=== PATIENT | male | born 1970 | race Caucasian/White ===

== ENCOUNTER 2022-09-02 07:27 | Outpatient (CLI) | payer MEDICARE, SELFPAY | END 2022-09-02 07:28 | disposition home or self-care (01) | LOC: AMB 09-13 06:51 | PROVIDERS: PCP Family Medicine; Visit Provider Family Medicine | DX: R06.02 Shortness of breath (principal); R05.9 Cough, unspecified | CPT/HCPCS: A0425; A0427 ==

== ENCOUNTER 2022-09-02 08:07 | Inpatient (IN) | payer MEDICARE, SELFPAY ==
[2022-09-02] VITALS (9 sets, daily range): BP systolic 114–157; BP diastolic 80–125; PULSE 74–138; RESP 20–28; TEMP 36.2–38.4; O2SAT 93–100; BMI 21.7; BMI 21.9
--- NOTE | 2022-09-02 08:27 | CRLHL7_ITS ---
For Patients: As a result of the Cures Act, medical imaging exams and procedure reports are released immediately into your electronic medical record. You may view this report before your referring provider. If you have questions, please contact your health care provider. INDICATION: COPD,FEVER TECHNIQUE: Chest 1 view COMPARISON: None FINDINGS: No dense infiltrate. No pulmonary edema or pneumothorax. No drainable pleural effusion. Mediastinum unremarkable. Postop changes right shoulder. IMPRESSION: No acute findings. Dictated by René Peña MD @ 09/02/2022 9:04:59 AM (Electronically Signed)
--- NOTE | 2022-09-02 08:29 | ED.SOB ---
HPI - SOB/Dyspnea General Chief Complaint: Shortness of Breath/Dyspnea Stated Complaint: Chest Pain Time Seen by Provider: 09/02/22 08:23 History of Present Illness HPI Narrative: This 52-year-old male comes in with shortness of breath. He arrives with a temperature of 101.2?. Those that he may have pneumonia. He has a history of COPD and is on oxygen at home. Oximetry at 97% but is on 3.5 L nasal cannula oxygen. He has tachycardia with a rate around 140 beats per minute. Is using accessory muscles for breathing. Began a couple days ago but significantly worse yesterday. He states that he did not sleep last night because of shortness of breath. He reports pain in his chest when coughing or taking a deep breath . He received 3 nebulizer treatments EN route here without much relief. Related Data Allergies Allergy/AdvReac Type Severity Reaction Status Date / Time No Known Drug Allergies Allergy Verified 09/02/22 08:18 Review of Systems Status of ROS: Reports: 10 or more systems reviewed and unremarkable except as noted in History and below Narrative: Constitutional: No weight gain or loss. he reports a fever. Eyes: No discharge. No vision changes. HENT: No congestion, no sore throat, no ear pain. Cardiovascular: No palpitations. Respiratory: Shortness of breath. Cough. Chest pain when coughing or taking a deep breath. Gastrointestinal: No abdominal pain, no vomiting, no diarrhea. Genitourinary: No dysuria, no hematuria. Musculoskeletal: Normal range of motion. Skin: No rashes, no pruritis. Neurological: No dizziness, weakness, sensory change, speech change. Endo/Heme/Allergies: No bruising or bleeding. No polydipsia. Pysch: no suicidality, no anxiety, no insomnia. All other systems reviewed and are negative. Exam Narrative: Exam Narrative: Constitutional: Well-developed, well-nourished. HEENT: Normocephalic, atraumatic. Neck: Normal range of motion. Nontender. Supple. Heart: Regular. No murmurs. Normal rate. Intact distal pulses. Lungs: Decreased air movement. S of accessory muscles for breathing. Abdomen: Normal bowel sounds. Nontender. No rebound tenderness. Genitalia: Deferred. Back: No midline tenderness. Normal range of motion. Extremities: Normal range of motion. No injury. Skin: Intact. No rash. Warm. No erythema or pallor. Neurologic: No altered sensation. No weakness. Alert and oriented. Psychiatric: No suicidality. No anxiety or depression. No insomnia. Nursing notes and vitals signs are reviewed. Const: Vital Signs, click to edit/add: Vital Signs - 24 hr 09/02/22 08:18 Temperature 101.2 F H Pulse Rate [Pulse Oximeter] 138 H Respiratory Rate 28 H Blood Pressure [Ri ght Upper Arm] 157/125 H Pulse Oximetry 97 Oxygen Delivery Me thod Nasal Cannula Oxygen Flow Rate 3.5 Course Vital Signs Vital signs: Initial Vital Signs Temperature 101.2 F H 09/02/22 08:18 Temperature Source Temporal Artery Scan 09/02/22 08:18 Pulse Rate 138 H 09/02/22 08:18 Respiratory Rate 28 H 09/02/22 08:18 Blood Pressure 157/125 H 09/02/22 08:18 Blood Pressure Mean 135 09/02/22 08:18 Pulse Oximetry 97 09/02/22 08:18 Oxygen Delivery Method 09/02/22 08:18 Oxygen Flow Rate 3.5 09/02/22 08:18 Vital Signs Temperature 101.2 F H 09/02/22 08:18 Pulse Rate 138 H 09/02/22 08:18 Respiratory Rate 28 H 09/02/22 08:18 Blood Pressure 157/125 H 09/02/22 08:18 Pulse Oximetry 97 09/02/22 08:18 Oxygen Delivery Method 09/02/22 08:18 Oxygen Flow Rate 3.5 09/02/22 08:18 Temperature 101.2 F H 09/02/22 08:18 Pulse Rate 138 H 09/02/22 08:18 Respiratory Rate 28 H 09/02/22 08:18 Blood Pressure 157/125 H 09/02/22 08:18 Pulse Oximetry 97 09/02/22 08:18 Oxygen Delivery Method 09/02/22 08:18 Oxygen Flow Rate 3.5 09/02/22 08:18 MDM - SOB/Dyspnea MDM Narrative Medical decision making narrative: This patient comes in with tachycardia and shortness of breath. He has a underlying history of COPD but took ill yesterday morning and arrives with a fever. Chest x-ray shows no acute pulmonary disease. Nasal pharyngeal swab returns positive for influenza A. Venous blood gases returned with some carbon dioxide retention but his pH is essentially normal. He is maintaining sufficient oximetry at 94% now on nasal cannula oxygen. He is a candidate for Tamiflu. I did speak with the hospitalist production repairer, Dr. Coello, who agrees to admit him into the hospital for further management. Lab Data Labs: Lab Results 09/02/22 09/02/22 09/02/22 Range/Units 08:45 09:12 09:12 WBC 9.64 (4.50-11.00) K/uL RBC 4.73 (4.30-5.90) m/uL Hgb 14.0 (13.5-17.5) gm/dL Hct 42.6 (37.0-53.0) % MCV 90 (80-100) fL MCH 30 (26-34) pg MCHC 33 (32-36) gm/dL RDW Coeff of Edin 11.9 (11.5-15.5) % Plt Count 246 (140-440) K/uL Neut % (Auto) 84.1 H (42.0-72.0) % Lymph % (Auto) 3.6 L (20-44) % [place] % (Auto) 10.2 (0.0-11.0) % Eos % (Auto) 1.3 (0.0-7.0) % Baso % (Auto) 0.3 (0.0-3.0) % Neut # (Auto) 8.10 H (1.7-7.0) K/uL Lymph # (Auto) 0.30 L (0.90-2.90) K/uL [place] # (Auto) 1.00 H (0.00-0.90) K/UL Eos # (Auto) 0.13 (0.00-0.50) K/uL Baso # (Auto) 0.03 (0.00-0.30) K/uL VBG pH (7.32-7.43) VBG pCO2 (40-50) mmHG VBG pO2 (25-47) mmHG VBG HCO3 (21-28) mmol/L Sodium 139 (135-149) mmol/L Potassium 4.3 (3.6-5.1) mmol/L Chloride 100 (96-114) mmol/L Carbon Dioxide 34 H (20-32) mmol/L BUN 16 (7-30) mg/dL Creatinine 0.7 (0.5-1.5) mg/dL Estimated Creat Clear 126.72 Estimated GFR 111 ml/min Glucose 124 H (60-115) mg/dL Lactate (0.5-1.9) mmol/L Calcium 9.2 (8.4-10.6) mg/dL SARS-CoV-2 (PCR) Negative SARS-CoV-2 (Negative) Influenza Type A (PCR) POSITIVE PCR FLU A A (Negative) Influenza Type B (PCR) Negative PCR FLU B (Negative) RSV (PCR) Negative PCR RSV (Negative) POC Troponin I (0.01-0.04) ng/ml 09/02/22 09/02/22 Range/Units 09:12 09:12 WBC (4.50-11.00) K/uL RBC (4.30-5.90) m/uL Hgb (13.5-17.5) gm/dL Hct (37.0-53.0) % MCV (80-100) fL MCH (26-34) pg MCHC (32-36) gm/dL RDW Coeff of Edin (11.5-15.5) % Plt Count (140-440) K/uL Neut % (Auto) (42.0-72.0) % Lymph % (Auto) (20-44) % [place] % (Auto) (0.0-11.0) % Eos % (Auto) (0.0-7.0) % Baso % (Auto) (0.0-3.0) % Neut # (Auto) (1.7-7.0) K/uL Lymph # (Auto) (0.90-2.90) K/uL [place] # (Auto) (0.00-0.90) K/UL Eos # (Auto) (0.00-0.50) K/uL Baso # (Auto) (0.00-0.30) K/uL VBG pH 7.389 (7.32-7.43) VBG pCO2 58 H (40-50) mmHG VBG pO2 31.0 (25-47) mmHG VBG HCO3 35 H (21-28) mmol/L Sodium (135-149) mmol/L Potassium (3.6-5.1) mmol/L Chloride (96-114) mmol/L Carbon Dioxide (20-32) mmol/L BUN (7-30) mg/dL Creatinine (0.5-1.5) mg/dL Estimated Creat Clear Estimated GFR ml/min Glucose (60-115) mg/dL Lactate 1.1 (0.5-1.9) mmol/L Calcium (8.4-10.6) mg/dL SARS-CoV-2 (PCR) (Negative) Influenza Type A (PCR) (Negative) Influenza Type B (PCR) (Negative) RSV (PCR) (Negative) POC Troponin I 0.00 L (0.01-0.04) ng/ml Imaging Data Chest x-ray: Radiologist's impression: FINDINGS: No dense infiltrate. No pulmonary edema or pneumothorax. No drainable pleural effusion. Mediastinum unremarkable. Postop changes right shoulder. IMPRESSION: No acute findings. ECG Data Attestation: I personally reviewed and interpreted this ECG as follows: Interpretation: Sinus tachycardia, rate is 139 beats per minute. There are no specific ST or T-wave abnormalities. Discharge Plan Discharge Clinical Impression: Influenza A Patient Disposition: Admitted As Inpatient Condition: Unchanged Follow Up/Referrals: Rohan Saldaña MD [Primary Care Provider] - Stand Alone Forms: [employer] Info Instructions
[2022-09-02] MEDS: dexAMETHasone 4 MG/ML VIAL 10 MG IV (09:01)
[2022-09-02 09:22] LABS: HCO3 VBG 35 mmol/L (21-28); Lactate* 1.1 mmol/L (0.5-1.9); PCO2 VBG 58 mmHG (40-50); pH VBG 7.389 (7.32-7.43)
[2022-09-02 09:25] LABS: Basophils Absolute Auto 0.03 K/uL (0.00-0.30); Basophils Percent Auto 0.3 % (0.0-3.0); Eosinophils Absolute Auto 0.13 K/uL (0.00-0.50); Eosinophils Percent Auto 1.3 % (0.0-7.0); Hematocrit 42.6 % (37.0-53.0); Immature Granulocytes Abs Auto 0.05 K/uL (0.00-0.30); Immature Granulocytes Pct Auto 0.5 %; Lymphocytes Percent Auto 3.6 % (20-44); Mean Corpuscular HGB Conc 33 gm/dL (32-36); Mean Corpuscular Hemoglobin 30 pg (26-34); Mean Corpuscular Volume 90 fL (80-100); Monocytes Percent Auto 10.2 % (0.0-11.0); Neutrophils Percent Auto 84.1 % (42.0-72.0); Platelet Count* 246 K/uL (140-440); RDW Coefficient of Variation % 11.9 % (11.5-15.5); Red Blood Count 4.73 m/uL (4.30-5.90); White Blood Count* 9.64 K/uL (4.50-11.00)
[2022-09-02 09:26] LABS: Slide Review Reflex No
[2022-09-02 09:26] LABS: PCR FLU A POSITIVE PCR FLU A (Negative); PCR FLU B Negative PCR FLU B (Negative); PCR RSV Negative PCR RSV (Negative)
[2022-09-02] MEDS: ACETAMINOPHEN 500 MG TABLET 1000 MG PO (09:34)
[2022-09-02 09:38] LABS: Chloride* 100 mmol/L (96-114); Potassium* 4.3 mmol/L (3.6-5.1); Sodium* 139 mmol/L (135-149)
[2022-09-02 09:41] LABS: Blood Urea Nitrogen* 16 mg/dL (7-30); Calcium* 9.2 mg/dL (8.4-10.6); Carbon Dioxide* 34 mmol/L (20-32); Creatinine* 0.7 mg/dL (0.5-1.5); Est. Creatinine Clearance* 126.72; Estimated Glomerular Filt Rate 111 ml/min; Glucose* 124 mg/dL (60-115)
[2022-09-02 09:42] LABS: SARS PCR* Negative SARS-CoV-2 (Negative)
[2022-09-02] MEDS: HYDROmorphone 0.5 mg/0.5 ml inj IVP (10:47)
[2022-09-02] MEDS: OSELTAMIVIR PHOSPHATE 75 MG CAPSULE PO ×2 (11:00→21:04)
--- NOTE | 2022-09-02 12:09 | ED.NURSE ---
Patient to CCU4 via wheelchair with NC @4L and IV saline locked.
--- NOTE | 2022-09-02 12:47 | CRLHL7_ITS ---
For Patients: As a result of the Century Cures Act, medical imaging exams and procedure reports are released immediately into your electronic medical record. You may view this report before your referring provider. If you have questions, please contact your health care provider. INDICATION: Hypoxia. COPD. Chest pain. Assess for pulmonary emboli. COMPARISON: March 13, 2020 TECHNIQUE: : CT examination of the chest was performed with the uneventful intravenous administration of 95 cc of Isovue 3 7 while thin axial sections were obtained from above the apices of the lungs to the lung bases. Please note that all CT scans at this facility use dose modulation, iterative reconstruction, and/or weight-based dosing when appropriate to reduce radiation dose to as low as reasonably achievable. FINDINGS: : HEART and MEDIASTINUM: The heart size is normal. There is no mediastinal or hilar adenopathy or mass. There is no pericardial effusion. PULMONARY ARTERIAL CIRCULATION: There is no visible intraluminal filling defect to suggest pulmonary embolus. LUNGS: Severe emphysema, upper lobe predominant centrilobular variant. Scarring and volume loss in the lingula. PLEURAL SPACES: There is no pleural effusion, pneumothorax or pleural based mass. VISUALIZED UPPER ABDOMEN: The limited visualized upper abdominal structures appear normal. OSSEOUS STRUCTURES: Age-appropriate appearance. No acute fracture or destructive process. TUBES and LINES: None. IMPRESSION: 1. There is no finding of acute pulmonary embolus. 2. Severe emphysema similar to the prior study. Minimal volume loss/atelectasis in the lingula which is new since the prior study. No pleural effusion or pneumothorax. Please note that all CT scans at this facility use dose modulation, iterative reconstruction, and/or weight-based dosing when appropriate to reduce radiation dose to as low as reasonably achievable. Dictated by Carl Castro MD @ 09/02/2022 2:29:41 PM (Electronically Signed)
--- NOTE | 2022-09-02 12:54 | P.IMHP_ITS ---
Hospitalist- H&P: HPI History of Present Illness Date Seen: 09/02/22 Chief complaint: Chest Pain Narrative: Carl Prasad is a 52 year old male who presented to the emergency room this morning for chest pain and dyspnea. Patient started feeling poorly 2 days ago and symptoms worsened; last night, he was unable to sleep secondary to severe dyspnea. In addition to his shortness of breath, he has had intermittent chest pain and coughing with thin sputum production. He has not had hemoptysis. He has not had any lower extremity edema. ER course and findings: - no acute findings on chest x-ray - + influenza A - normal pH on VBG, mild CO2 retention at 58 Patient has known history of COPD, is chronically oxygen dependent at home. No history of coronary artery disease. 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 He was previously on Coumadin but elected against lifelong anticoagulation. Carl lives alone, currently on SSDI secondary to severe COPD. He is a former smoker, quit last year and has smoked intermittently since. History of alcohol overuse, now rarely drinks alcohol. His mother Halima Watters would be medical decision maker if needed. He requests full code status, but requests that if he was ever intubated that it not be long-term. PCP is Dr. Saldaña locally. Review of Systems Status of ROS: Reports: 10 or more systems reviewed and unremarkable except as noted in History and below Narrative: - decreased appetite, but notes weight gain over the past few months (unclear on objective amount) - no abdominal pain - no skin concerns PFSH PFSH Medical History (Updated 09/02/22 @ 14:05 by Juanita Coello MD) COPD (chronic obstructive pulmonary disease) Former smoker Oxygen dependent Recurrent deep vein thrombosis (DVT) Surgical History (Updated 09/02/22 @ 13:04 by Juanita Coello MD) H/O lumbar discectomy Social History Highest level of school completed/degree received: 12th grade, no diploma Smoking Status: Former smoker What tobacco products do you use: cigarettes Smoking quit date/years: <= 15 years ago Do you use any of these nicotine containing products: None How often do you have a drink containing alcohol: never AUDIT-C Alcohol total score: 0 Caffeine: Yes service: No Meds Home Medications and Allergies Home Medications Medication Instructions Recorded Confirmed Type albuterol sulfate 90 mcg/actuation 2 inh inhalation Q4-6H PRN 09/02/22 09/02/22 History aerosol inhaler fluticasone fur. 100 mcg-umeclid 1 inh inhalation DAILY 09/02/22 09/02/22 History 62.5 mcg-vilant 25 mcg inhalat.powder (Trelegy Ellipta) Allergies Allergy/AdvReac Type Severity Reaction Status Date / Time No Known Drug Allergies Allergy Verified 09/02/22 08:18 Exam Narrative: Exam Narrative: GEN: Alert in answering questions appropriately, appears chronically ill and thin HEENT: Normal external ears, EOMIs bilaterally, no scleral icterus CV: Sinus tachycardia, No concerning murmurs, rubs, or gallops R: + tachypnea with accessory muscle usage. Decreased air movement throughout, soft expiratory wheezes Ab: Soft, no distension, mild hepatomegaly to palpation, no TTP Ext: wwp, no concerning edema Skin: No concerning skin lesions or rashes on exposed skin Neuro: Nonfocal, no resting tremor gait Psych: Appropriate Const: Vital Signs, click to edit/add: Vital Signs - 24 hr 09/02/22 08:18 09/02/22 08:27 09/02/22 10:45 Temperature 101.2 F H 99 F Pulse Rate [Pulse Oximeter] 138 H 111 H Pulse Rate [Right Radial] Respiratory Rate 28 H 24 Blood Pressure [Ri ght Arm] Blood Pressure [Ri ght Upper Arm] 157/125 H 118/90 H Pulse Oximetry 97 95 95 Oxygen Delivery Me thod Nasal Cannula Nasal Cannula Oxygen Flow Rate 3.5 3.5 09/02/22 12:19 Temperature 99.1 F Pulse Rate [Pulse Oximeter] Pulse Rate [Right Radial] 112 H Respiratory Rate 20 Blood Pressure [Ri ght Arm] 114/91 H Blood Pressure [Ri ght Upper Arm] Pulse Oximetry 97 Oxygen Delivery Me thod Nasal Cannula Oxygen Flow Rate 3.5 Hospitalist - H&P: Result Labs Labs: Short CBC 09/02/22 Range/Units 09:12 WBC 9.64 (4.50-11.00) K/uL Hgb 14.0 (13.5-17.5) gm/dL Hct 42.6 (37.0-53.0) % Plt Count 246 (140-440) K/uL [facility] 09/02/22 09:12 Sodium 139 Potassium 4.3 Chloride 100 Carbon Dioxide 34 H BUN 16 Creatinine 0.7 Glucose 124 H Calcium 9.2 Assessment and Plan Assessment and plan (1) Acute and chronic respiratory failure with hypoxia: Problem comment: - 2/2 COPD exacerbation and Influenza - RT referral - Tamiflu, nebs, steroids - CT PE ordered, results pending Status: Acute (2) COPD (chronic obstructive pulmonary disease): Problem comment: - exacerbation with influenza A - 24 hours IV Solu-Medrol, transition to oral prednisone tomorrow - RT referral - prn nebs Status: Acute (3) Recurrent deep vein thrombosis (DVT): Problem comment: - history of DVT x2 and PE - will obtain CTA of chest to evaluate given symptoms Status: Acute (4) Influenza A: Problem comment: - Given high risk status, treat with Tamiflu Status: Acute Plan - per above - ppx pending results of CT - patient requests Full Code status
[2022-09-02] MEDS: METHYLPREDNISOLONE SOD SUCC 62.5 MG/ML (125) 125 MG IVP ×2 (13:52→19:21)
--- NOTE | 2022-09-02 14:06 | PC.NURSE ---
End of Shift Note: Patient arrived from the ER due to increase work of breathing. Has been ill for a couple of days. Was seen by RT and oxygen has been turned down as he is a CO2 retainer. Just received a dose of solumederol. Is sitting up in bed. Inspiratory is course sounding. Will continue to monitor.
[2022-09-02 14:17] LABS: Thyroid Stimulating Hormone* 0.677 uIU/mL (0.270-4.20)
--- NOTE | 2022-09-02 14:18 | RESP.RT ---
Patient has been prescribed supplemental O2 at home at 2Lpm NC, but increased those settings on his own to 3.5L NC. He was on 3.5L NC and SATing 100%. I weaned him down to his prescribed level of 2L NC, and he is still SATing 98%. He continues to have labored breathing and says that he is taking Trelogy Qday at home and Albuterol PRN. After seeing his VBG having an elevated CO2 level we should assess his need for the 2L NC and attempt to wean him down to a level where he is not retaining CO2 and keeping his SATs 88-92%.
[2022-09-02 15:03] LABS: Albumin* 4.5 g/dL (3.3-5.0)
[2022-09-02 15:06] LABS: Alanine Aminotransferase* 20 U/L (4-50); Alkaline Phosphatase* 84 U/L (40-150); Aspartate Amino Transferase* 26 U/L (12-35); Bilirubin Direct* 0.2 mg/dL (0.0-0.5); Bilirubin Total* 0.5 mg/dL (0.1-1.5); Total Protein* 7.3 g/dL (6.0-8.3)
[2022-09-02 15:17] LABS: NT Pro B Type NatriureticPept* 274 pg/mL
[2022-09-02] MEDS: IPRAT-ALBUT 0.5-2.5 MG/3 ML NEB 1 NEB IH (16:05)
[2022-09-02] MEDS: MORPHINE 4 MG/ML INJ IVP (16:05)
[2022-09-02] MEDS: PERFLUTREN LIPID MICROSPHERES 2 ML VIAL IV (17:39)
--- NOTE | 2022-09-02 17:47 | PC.NURSE ---
[facility] note: pt states he has 4/10 upper chest pain with cough. pt cough dry and intermittent. Pt received duoneb and 2mg morphine sulfate with relief. vss stable. pt on 1.5L pnc O2 with sats variable 91-93%. RR=26/min and shallow prior to neb. LS course throughout. IV to lt AC patent. echo done
[2022-09-02] MEDS: ALBUTEROL SULFATE 2.5 MG/3 ML VIAL.NEB NEB (19:38)
[2022-09-02] MEDS: LORazepam 0.5 MG TABLET PO (21:04)
[2022-09-02] MEDS: BUDESONIDE 0.5 MG/2ML NEB NEB (21:05)
[2022-09-02] MEDS: ENOXAPARIN 40 MG/0.4 ML INJ SUBCUT (21:05)
[2022-09-03] VITALS (7 sets, daily range): BP systolic 110–135; BP diastolic 76–103; PULSE 73–115; RESP 18–20; TEMP 36.2–36.8; O2SAT 89–97
[2022-09-03] MEDS: METHYLPREDNISOLONE SOD SUCC 62.5 MG/ML (125) 125 MG IVP (00:59)
[2022-09-03] MEDS: ACETAMINOPHEN 325 MG TABLET 975 MG PO (01:07)
[2022-09-03] MEDS: MORPHINE 4 MG/ML INJ IVP ×4 (01:07→15:32)
[2022-09-03] MEDS: SODIUM CHLORIDE 0.9 % (FLUSH) 10 ML SYRINGE 5 ML IVF ×4 (01:11→21:06)
[2022-09-03] MEDS: OMEPRAZOLE 20 MG CAPSULE DR 40 MG PO (06:06)
[2022-09-03 06:34] LABS: HCO3 VBG 36 mmol/L (21-28); PO2 VBG 27.4 mmHG (25-47); pH VBG 7.331 (7.32-7.43)
[2022-09-03 06:42] LABS: PCO2 VBG 69 mmHG (40-50)
[2022-09-03 06:43] LABS: Basophils Absolute Auto 0.02 K/uL (0.00-0.30); Basophils Percent Auto 0.3 % (0.0-3.0); Hematocrit 39.3 % (37.0-53.0); Hemoglobin* 12.9 gm/dL (13.5-17.5); Immature Granulocytes Pct Auto 1.3 %; Lymphocytes Percent Auto 9.4 % (20-44); Mean Corpuscular HGB Conc 33 gm/dL (32-36); Mean Corpuscular Hemoglobin 29 pg (26-34); Mean Corpuscular Volume 89 fL (80-100); Monocytes Percent Auto 4.9 % (0.0-11.0); Neutrophils Percent Auto 84.1 % (42.0-72.0); Platelet Count* 266 K/uL (140-440); RDW Coefficient of Variation % 11.9 % (11.5-15.5); Red Blood Count 4.41 m/uL (4.30-5.90); White Blood Count* 7.56 K/uL (4.50-11.00)
[2022-09-03 06:52] LABS: Albumin* 4.1 g/dL (3.3-5.0); Chloride* 97 mmol/L (96-114)
[2022-09-03 06:53] LABS: Potassium* 4.5 mmol/L (3.6-5.1); Sodium* 137 mmol/L (135-149)
[2022-09-03 06:55] LABS: Alkaline Phosphatase* 68 U/L (40-150); Aspartate Amino Transferase* 21 U/L (12-35); Bilirubin Total* 0.5 mg/dL (0.1-1.5); Blood Urea Nitrogen* 21 mg/dL (7-30); Carbon Dioxide* 34 mmol/L (20-32); Creatinine* 0.8 mg/dL (0.5-1.5); Est. Creatinine Clearance* 112.06; Estimated Glomerular Filt Rate 106 ml/min; Slide Review Reflex No; Total Protein* 6.8 g/dL (6.0-8.3)
[2022-09-03 06:56] LABS: Alanine Aminotransferase* 19 U/L (4-50); Calcium* 8.8 mg/dL (8.4-10.6); Glucose* 136 mg/dL (60-115)
[2022-09-03 07:10] LABS: Troponin I* < 0.01 ng/mL (0.01-0.04)
[2022-09-03 07:13] LABS: Procalcitonin* 0.08 ng/mL (<0.50)
[2022-09-03] MEDS: predniSONE 20 MG TABLET 60 MG PO (08:04)
[2022-09-03] MEDS: OSELTAMIVIR PHOSPHATE 75 MG CAPSULE PO ×2 (09:04→21:05)
[2022-09-03] MEDS: BUDESONIDE 0.5 MG/2ML NEB NEB ×2 (09:05→21:06)
[2022-09-03 09:48] LABS: HCO3 VBG 35 mmol/L (21-28); PO2 VBG 20.9 mmHG (25-47); pH VBG 7.336 (7.32-7.43)
[2022-09-03 09:50] LABS: PCO2 VBG 66 mmHG (40-50)
--- NOTE | 2022-09-03 15:22 | P.IMPN_ITS ---
Progress Note: A&P Assessment and plan (1) Acute and chronic respiratory failure with hypoxia: Problem details: - 2/2 COPD exacerbation and Influenza - RT referral - Tamiflu, nebs, steroids - CT PE protocol negative for pulmonary embolism, no acute infiltrate, no pneumothorax, advance emphysema and COPD. Status: Acute (2) COPD (chronic obstructive pulmonary disease): Problem details: - exacerbation with influenza A - 24 hours IV Solu-Medrol, transition to oral prednisone tomorrow - RT referral - prn nebs Status: Acute (3) Recurrent deep vein thrombosis (DVT): Problem details: - history of DVT x2 and PE - will obtain CTA of chest to evaluate given symptoms Status: Acute (4) Influenza A: Problem details: - Given high risk status, treat with Tamiflu Status: Acute (5) Acute on chronic respiratory failure with hypoxia and hypercapnia: Status: Acute (6) Oxygen dependent: Status: Acute Plan 1. Discussed with patient the possibility of adding BiPAP therapy. He is agreeable to do so should his condition worsen. Will continue to monitor this closely. 2. Continue with lower oxygen supplementation. 3. Continue with treatment for COPD exacerbation and influenza. 4. Patient agreeable with above stated plans and recommendations. Time Spent With Patient Total time spent: 40 minutes Subjective Time Seen by Provider: 08:30 Date Seen: 09/03/22 Interval history: Hospital day 2. 52-year-old man with advanced emphysema and COPD with history of tobacco smoking presents with aches and pains and increased dyspnea. Found to have influenza A. Is chronically on oxygen supplementation at 2 liters/minute via nasal cannula. Not feeling any better today compared to when he presented yesterday. Has similar complaints of myalgias, arthralgias, dyspnea at rest with increased dyspnea with exertion. Tolerating oseltamivir treatment for influenza A. We have been titrating his oxygen administration downward. When I 1st saw him today he was on 1 L of oxygen per minute with respiratory rate of 24 saturation of 94%. Tolerating oral intake. Denies nausea or vomiting. Acknowledges decreased interest in eating. Has some chest discomforts when coughing otherwise none. Acknowledges a generalized sense of weakness. No other gastrointestinal or genitourinary complaints or concerns. Denies chest heaviness, pressure, tightness, or pain. Denies syncope or near-syncope. Denies palpitations. Exam Narrative: Exam Narrative: Appears ill, but in no acute distress. Vision and hearing are grossly normal. Thin body habitus. Scattered rhonchi without wheezing or rales. Decreased breath sounds. Distant heart tones but regular rhythm, normal S1-S2. Abdomen with active bowel sounds, soft, nontender. Extremities without edema. Does have clubbing of digits of the hand. Independent transfer, station, and gait. No tremor, asterixis, or ataxia. Skin intact. Const: Vital Signs, click to edit/add: Vital Signs - 24 hr 09/02/22 16:10 09/02/22 19:00 09/02/22 19:00 Temperature 97.2 F L 97.4 F L Pulse Rate Pulse Rate [Right Radial] 94 74 Respiratory Rate 26 H 22 22 Blood Pressure [Ri ght Arm] 123/80 117/88 Pulse Oximetry 100 100 Oxygen Delivery Me thod Nasal Cannula Nasal Cannula Oxygen Flow Rate 2 1 09/02/22 22:49 09/02/22 22:49 09/02/22 22:49 Temperature Pulse Rate 95 Pulse Rate [Right Radial] Respiratory Rate 24 22 Blood Pressure [Ri ght Arm] Pulse Oximetry 93 Oxygen Delivery Me thod Nasal Cannula Oxygen Flow Rate 1 09/02/22 22:53 09/02/22 22:53 09/03/22 02:32 Temperature 97.4 F L Pulse Rate Pulse Rate [Right Radial] 90 Respiratory Rate 22 20 Blood Pressure [Ri ght Arm] 135/103 H Pulse Oximetry 93 93 97 Oxygen Delivery Me thod Nasal Cannula Nasal Cannula Oxygen Flow Rate 1 1 09/03/22 07:00 09/03/22 07:00 09/03/22 07:00 Temperature Pulse Rate 73 Pulse Rate [Right Radial] 115 H Respiratory Rate 20 Blood Pressure [Ri ght Arm] Pulse Oximetry 90 Oxygen Delivery Me thod Oxygen Flow Rate 09/03/22 07:00 09/03/22 07:00 09/03/22 11:00 Temperature 97.2 F L 97.6 F Pulse Rate Pulse Rate [Right Radial] 115 H 89 Respiratory Rate 20 20 18 Blood Pressure [Ri ght Arm] 110/76 129/87 Pulse Oximetry 90 90 91 Oxygen Delivery Me thod Nasal Cannula Nasal Cannula Nasal Cannula Oxygen Flow Rate 1 1 0.5 Labs Labs: Laboratory Results - last 24 hr 09/03/22 09/03/22 09/03/22 06:07 06:07 06:07 WBC 7.56 RBC 4.41 Hgb 12.9 L Hct 39.3 MCV 89 MCH 29 MCHC 33 RDW Coeff of Edin 11.9 Plt Count 266 Neut % (Auto) 84.1 H Lymph % (Auto) 9.4 L [place] % (Auto) 4.9 Eos % (Auto) 0.0 Baso % (Auto) 0.3 Neut # (Auto) 6.40 Lymph # (Auto) 0.70 L [place] # (Auto) 0.40 Eos # (Auto) 0.00 Baso # (Auto) 0.02 VBG pH 7.331 VBG pCO2 69 H* VBG pO2 27.4 VBG HCO3 36 H Sodium 137 Potassium 4.5 Chloride 97 Carbon Dioxide 34 H BUN 21 Creatinine 0.8 Estimated Creat Clear 112.06 Estimated GFR 106 Glucose 136 H Calcium 8.8 Total Bilirubin 0.5 AST 21 ALT 19 Alkaline Phosphatase 68 Troponin I < 0.01 L Total Protein 6.8 Albumin 4.1 Procalcitonin 0.08 09/03/22 09:26 WBC RBC Hgb Hct MCV MCH MCHC RDW Coeff of Edin Plt Count Neut % (Auto) Lymph % (Auto) [place] % (Auto) Eos % (Auto) Baso % (Auto) Neut # (Auto) Lymph # (Auto) [place] # (Auto) Eos # (Auto) Baso # (Auto) VBG pH 7.336 VBG pCO2 66 H* VBG pO2 20.9 L VBG HCO3 35 H Sodium Potassium Chloride Carbon Dioxide BUN Creatinine Estimated Creat Clear Estimated GFR Glucose Calcium Total Bilirubin AST ALT Alkaline Phosphatase Troponin I Total Protein Albumin Procalcitonin
[2022-09-03 16:30] LABS: HCO3 VBG 34 mmol/L (21-28); pH VBG 7.291 (7.32-7.43)
[2022-09-03 16:35] LABS: PCO2 VBG 71 mmHG (40-50)
--- NOTE | 2022-09-03 19:05 | PM.EN ---
Chart Event Note Time Seen by Provider: 19:05 Date Seen: 09/03/22 Chart Event Note: NOTED INCREASING CO2 NOTED DECREASING PH Romulo is feeling more dyspneic and had trouble recovering after walking to the bathroom on his 0.5 L. just after his trip to the restroom we checked a VBG which had stated findings. Discussed the case with his bedside nurse and RT, we are initiating BiPAP therapy at 12 at 25% FiO2 I am going to hold his morphine but allow small dose of IV Ativan as he is mildly restless with the mask on Repeat gas at 10:00 p.m.
[2022-09-03] MEDS: LORazepam 2 MG/ML inj IVP (21:04)
[2022-09-03] MEDS: ENOXAPARIN 40 MG/0.4 ML INJ SUBCUT (21:07)
[2022-09-03 22:09] LABS: HCO3 VBG 36 mmol/L (21-28); Lactate* 1.3 mmol/L (0.5-1.9); PCO2 VBG 58 mmHG (40-50); PO2 VBG 32.4 mmHG (25-47); pH VBG 7.401 (7.32-7.43)
--- NOTE | 2022-09-03 22:56 | PC.NURSE ---
Dr Tao updated on current VBG values. To cont as is until morning. Pt can have 3 15min breaks from BiPaP throughout the night if he choses. He is resting at this time. Labs in am.
[2022-09-04] VITALS (10 sets, daily range): BP systolic 104–135; BP diastolic 81–93; PULSE 73–97; RESP 18–28; TEMP 36.2–37.2; O2SAT 90–99
--- NOTE | 2022-09-04 05:45 | PC.NURSE ---
Pt tired looking and pale. Was started on BiPAP at aroung 1900 last evening. He initially was not tolerating it very well. Dr Tao spoke with him and labs were drawn and were better by having BiPAP on so pt left it on and was given .5 mg of ativan. He tolerated that well. He slept 5-5.5hrs. Up x1 to the BR around 3pm then back to sleep.
[2022-09-04] MEDS: OMEPRAZOLE 20 MG CAPSULE DR 40 MG PO (06:45)
[2022-09-04 07:12] LABS: HCO3 VBG 37 mmol/L (21-28); PCO2 VBG 59 mmHG (40-50); PO2 VBG 29.8 mmHG (25-47); pH VBG 7.405 (7.32-7.43)
[2022-09-04 07:20] LABS: Hematocrit 41.6 % (37.0-53.0); Hemoglobin* 13.6 gm/dL (13.5-17.5); Mean Corpuscular HGB Conc 33 gm/dL (32-36); Mean Corpuscular Hemoglobin 29 pg (26-34); Mean Corpuscular Volume 89 fL (80-100); Platelet Count* 301 K/uL (140-440); Red Blood Count 4.69 m/uL (4.30-5.90)
[2022-09-04 07:47] LABS: Slide Review Reflex No; White Blood Count* 25.61 K/uL (4.50-11.00)
[2022-09-04] MEDS: predniSONE 20 MG TABLET 60 MG PO (08:16)
[2022-09-04] MEDS: IPRAT-ALBUT 0.5-2.5 MG/3 ML NEB 1 NEB IH ×2 (08:16→15:00)
[2022-09-04] MEDS: LORazepam 2 MG/ML inj IVP (08:25)
[2022-09-04] MEDS: BUDESONIDE 0.5 MG/2ML NEB NEB ×2 (10:16→20:23)
[2022-09-04] MEDS: OSELTAMIVIR PHOSPHATE 75 MG CAPSULE PO ×2 (10:16→20:41)
[2022-09-04] MEDS: LORazepam 0.5 MG TABLET PO ×2 (11:53→20:24)
--- NOTE | 2022-09-04 16:13 | P.IMPN_ITS ---
Progress Note: A&P Assessment and plan (1) Acute and chronic respiratory failure with hypoxia: Problem details: - 2/2 COPD exacerbation and Influenza - RT referral - Tamiflu, nebs, steroids - CT PE protocol negative for pulmonary embolism, no acute infiltrate, no pneumothorax, advance emphysema and COPD. Status: Acute Assessment and Plan: Not requiring much oxygen supplementation. For the hypercapnic respiratory failure however he is requiring BiPAP support off and on. (2) COPD (chronic obstructive pulmonary disease): Problem details: - exacerbation with influenza A - 24 hours IV Solu-Medrol, transition to oral prednisone tomorrow - RT referral - prn nebs Status: Acute Assessment and Plan: Continue current treatment efforts. (3) Recurrent deep vein thrombosis (DVT): Problem details: - history of DVT x2 and PE - will obtain CTA of chest to evaluate given symptoms Status: Acute (4) Influenza A: Problem details: - Given high risk status, treat with Tamiflu Status: Acute Assessment and Plan: Continue with use of oseltamivir. (5) Acute on chronic respiratory failure with hypoxia and hypercapnia: Status: Acute Assessment and Plan: Continue with BiPAP support. (6) Oxygen dependent: Status: Acute Assessment and Plan: Acute on chronic. Not requiring mice oxygen support except for with exertion at this time. Plan Continue with efforts to support patient during this delicate time. In time we will see how he does with less support. Time Spent With Patient Total time spent: 45 minutes Subjective Time Seen by Provider: 07:30 Date Seen: 09/04/22 Interval history: Hospital day 3. 52-year-old man with advanced emphysema and COPD with history of tobacco smoking presents with aches and pains and increased dyspnea. Found to have influenza A. Is chronically on oxygen supplementation at 2 liters/minute via nasal cannula. Yesterday he went on to develop acute on chronic hypercapnic respiratory failure with rising venous pCO2 to 71 and falling venous pH to 7.2. We initiated treatment with BiPAP therapy. He was fairly comfortable with the setting of E PAP of 5, IPAP of 12, with FiO2 of 25%. This morning pH was up to 7.4 and pCO2 was down to 58. He indicates he feels slightly better today compared to yesterday but still feels ?awful.? Shortness of breath is not as bad. Only has chest discomfort with coughing. No chest heaviness, pressure, tightness, or pain. Denies syncope or near-syncope. Denies nausea vomiting. Minimal exertion causes major decrease in his oxygen saturation levels. Tolerating oral intake. Patient has been switching from BiPAP to oxygen delivery via nasal cannula today. With minimal exertion he is able to maintain his saturations above 90 even on 0.5 L of oxygen per minute nasal cannula. With minimal exertion, oxygen saturations drop into the low 80s. Saturations recover with rest. Exam Narrative: Exam Narrative: Still relatively tachypneic at rest even with oxygen delivered via nasal cannula and 0.5 liter/minute. Nevertheless does not appear uncomfortable. When I 1st saw him this morning, he was using the face mask as he was receiving BiPAP. As I have seen him off and on throughout the day, he has had the nasal cannula in place at 0.5 liter/minute. On auscultation of his lungs he has inspiratory and expiratory wheezing. Is receiving nebulizer therapy and steroids. Heart tones are distant but with regular rhythm. Abdomen thin with active bowel sounds, soft and nontender. Extremities without edema. Skin is warm, dry, intact. Const: Vital Signs, click to edit/add: Vital Signs - 24 hr 09/03/22 18:44 09/03/22 19:09 09/04/22 09:29 Temperature 98.2 F Pulse Rate Pulse Rate [Right Radial] 85 Respiratory Rate 20 Blood Pressure [Ri t Arm] 134/87 Pulse Oximetry 90 Oxygen Delivery Me thod Nasal Cannula Oxygen Flow Rate 0.5 Fraction of Inspir ed Oxygen 0.25 0.25 09/03/22 20:35 09/03/22 23:00 09/03/22 23:00 Temperature Pulse Rate 84 75 Pulse Rate [Right Radial] Respiratory Rate Blood Pressure [Ri t Arm] Pulse Oximetry 89 Oxygen Delivery Me thod Oxygen Flow Rate Fraction of Inspir ed Oxygen 09/03/22 23:00 09/04/22 03:00 09/04/22 08:07 Temperature 98.2 F 97.2 F L Pulse Rate Pulse Rate [Right Radial] 75 88 Respiratory Rate 20 20 28 H Blood Pressure [Ri t Arm] 104/85 125/89 Pulse Oximetry 89 99 91 Oxygen Delivery Me thod BiPAP BiPAP Nasal Cannula Oxygen Flow Rate 0 0.5 Fraction of Inspir ed Oxygen 0.25 09/04/22 07:00 09/04/22 07:00 09/04/22 08:42 Temperature Pulse Rate 97 Pulse Rate [Right Radial] Respiratory Rate Blood Pressure [Ri ght Arm] Pulse Oximetry 92 92 Oxygen Delivery Me thod Nasal Cannula Oxygen Flow Rate 0.5 Fraction of Inspir ed Oxygen 09/04/22 11:00 09/04/22 15:00 09/04/22 15:00 Temperature 97.9 F Pulse Rate Pulse Rate [Right Radial] 86 Respiratory Rate 26 H 28 H Blood Pressure [Ri ght Arm] 125/87 Pulse Oximetry 91 92 92 Oxygen Delivery Me thod Nasal Cannula Nasal Cannula Oxygen Flow Rate 1 1 Fraction of Inspir ed Oxygen 09/04/22 15:46 Temperature 97.9 F Pulse Rate Pulse Rate [Right Radial] 84 Respiratory Rate 24 Blood Pressure [Ri ght Arm] 135/81 Pulse Oximetry 93 Oxygen Delivery Me thod Nasal Cannula Oxygen Flow Rate 1 Fraction of Inspir ed Oxygen Documenting provider has reviewed patient's vital signs: yes Labs Labs: Laboratory Results - last 24 hr 09/03/22 09/03/22 09/04/22 16:18 22:04 07:00 WBC 25.61 H* RBC 4.69 Hgb 13.6 Hct 41.6 MCV 89 MCH 29 MCHC 33 Plt Count 301 VBG pH 7.291 L 7.401 VBG pCO2 71 H* 58 H VBG pO2 32.4 VBG HCO3 34 H 36 H Lactate 1.3 09/04/22 07:00 WBC RBC Hgb Hct MCV MCH MCHC Plt Count VBG pH 7.405 VBG pCO2 59 H VBG pO2 29.8 VBG HCO3 37 H Lactate
--- NOTE | 2022-09-04 18:41 | PC.NURSE ---
shift note: pt removed from bipap @ 0800 then placed on 0.5L pnc. pt RR=26. pt appeared to be struggling with regulating breathing due to deep cough and copoius amounts of ruiz/green thick phlem. Pt received duoneb and slowed breathing with pursed lip technique. Pt also received 0.5mg ativan IV at this time. LS with insp/exp wheezing. pt placed back on bipap by 0900 per his request. pt rested till 1015 then received scheduled meds. resp therapy adjusted bipap to ipap-14 Epap-8 rise-2 and FiO2-21% @1130. Pt tolerated bipap till 1150. Pt recived ativan @ 1153 due to increased sob due to coughing. sats remained 88-91%. Pt placed back on bipap @ 1345 per his request to sleep then off @ 1454. Pt did receive a duoneb @ 1500 and LS dim throughout. Pt ate and requested to rest on NC. pt maintains 94-95% 0.5L O2 with RR-24. IV patent. vss stable. pt denies
[2022-09-04] MEDS: ENOXAPARIN 40 MG/0.4 ML INJ SUBCUT (20:23)
[2022-09-04] MEDS: SODIUM CHLORIDE 0.9 % (FLUSH) 10 ML SYRINGE 5 ML IVF (20:41)
[2022-09-05] VITALS (11 sets, daily range): BP systolic 118–130; BP diastolic 86–93; PULSE 72–96; RESP 14–18; TEMP 36.1–36.8; O2SAT 90–95; BMI 21.9
[2022-09-05] MEDS: LORazepam 0.5 MG TABLET PO ×2 (01:29→21:48)
[2022-09-05] MEDS: OMEPRAZOLE 20 MG CAPSULE DR 40 MG PO (05:57)
--- NOTE | 2022-09-05 06:15 | PC.NURSE ---
: Pt has been resting in bed this shift, when up to br becomes sob/increased wob noted rr upper 20's, oximetry low 80's for a couple mins then resolved to 90%, otherwise at rest when awake oximetry 90% on ra, has been on bipap all night with fio2@21%, received a couple doses of ativan and rested all night with eyes closed, pt awoke by himself once noted.
[2022-09-05 07:46] LABS: HCO3 VBG 39 mmol/L (21-28); PO2 VBG 31.1 mmHG (25-47); pH VBG 7.416 (7.32-7.43)
[2022-09-05 07:52] LABS: Hemoglobin* 13.8 gm/dL (13.5-17.5); Mean Corpuscular HGB Conc 33 gm/dL (32-36); Mean Corpuscular Hemoglobin 29 pg (26-34); Mean Corpuscular Volume 89 fL (80-100); Platelet Count* 315 K/uL (140-440); Red Blood Count 4.72 m/uL (4.30-5.90); White Blood Count* 16.34 K/uL (4.50-11.00)
[2022-09-05 07:56] LABS: PCO2 VBG 61 mmHG (40-50)
--- NOTE | 2022-09-05 08:00 | CRLHL7_ITS ---
For Patients: As a result of the Century Cures Act, medical imaging exams and procedure reports are released immediately into your electronic medical record. You may view this report before your referring provider. If you have questions, please contact your health care provider. INDICATION: Hypercapnic respiratory failure COMPARISON: September 02, 2022 TECHNIQUE: Portable AP upright single view study FINDINGS: TUBES AND LINES: None. HEART AND MEDIASTINUM: The heart size is normal. The mediastinal contour appears normal for patient age. LUNGS AND PLEURAL SPACES: Hyperinflation likely related to COPD. Linear opacity at the left base likely atelectasis or scarring.Minimal blunting of the left costophrenic angle likely pleural scarring or a tiny effusion. Similar to the prior exam. OSSEOUS STRUCTURES: Age-appropriate appearance. No acute focal finding. IMPRESSION: Hyperinflation consistent with COPD. Left basilar atelectasis or scarring. Minimal blunting of left costophrenic angle representing either a very small effusion or pleural thickening. Overall similar to the prior exam. Dictated by Carl Castro MD @ 09/05/2022 7:33:55 AM (Electronically Signed)
[2022-09-05 08:01] LABS: Slide Review Reflex No
[2022-09-05 08:08] LABS: Chloride* 97 mmol/L (96-114); Sodium* 138 mmol/L (135-149)
[2022-09-05 08:09] LABS: Potassium* 3.9 mmol/L (3.6-5.1)
[2022-09-05 08:11] LABS: Creatinine* 0.8 mg/dL (0.5-1.5); Est. Creatinine Clearance* 112.06; Estimated Glomerular Filt Rate 106 ml/min
[2022-09-05 08:12] LABS: Blood Urea Nitrogen* 23 mg/dL (7-30); Carbon Dioxide* 37 mmol/L (20-32); Glucose* 90 mg/dL (60-115); Phosphorus* 2.7 mg/dL (2.5-4.5)
[2022-09-05 08:13] LABS: Magnesium* 2.1 mg/dL (1.5-2.6)
[2022-09-05] MEDS: OSELTAMIVIR PHOSPHATE 75 MG CAPSULE PO ×2 (08:14→21:20)
[2022-09-05] MEDS: predniSONE 20 MG TABLET 60 MG PO (08:14)
[2022-09-05 08:15] LABS: C Reactive Protein* 0.7 mg/dL (0.5-1.0)
[2022-09-05] MEDS: SODIUM CHLORIDE 0.9 % (FLUSH) 10 ML SYRINGE 5 ML IVF ×2 (08:15→21:20)
[2022-09-05] MEDS: IPRAT-ALBUT 0.5-2.5 MG/3 ML NEB 1 NEB IH ×2 (08:15→15:36)
[2022-09-05 08:29] LABS: Procalcitonin* 0.08 ng/mL (<0.50)
[2022-09-05 08:36] LABS: NT Pro B Type NatriureticPept* 58 pg/mL; Troponin I* < 0.01 ng/mL (0.01-0.04)
[2022-09-05] MEDS: BUDESONIDE 0.5 MG/2ML NEB NEB ×2 (08:42→21:20)
[2022-09-05 08:55] LABS: HCO3 VBG 38 mmol/L (21-28); PCO2 VBG 57 mmHG (40-50); PO2 VBG 46.5 mmHG (25-47); pH VBG 7.423 (7.32-7.43)
--- NOTE | 2022-09-05 09:17 | RESP.RT ---
Patient prescribed home O3 at 2L NC, but increased his usage to 3.5L NC. His VBGs shows that he has increased CO2 levels, but a normal pH indicating a chronic condition. We have been using BiPAP when his pH drops. We have also weaned his O2 to RA while at rest and 3L NC with activity.
--- NOTE | 2022-09-05 12:21 | P.IMPN_ITS ---
Progress Note: A&P Assessment and plan (1) Acute and chronic respiratory failure with hypoxia: Problem details: - 2/2 COPD exacerbation and Influenza - RT referral - Tamiflu, nebs, steroids - CT PE protocol negative for pulmonary embolism, no acute infiltrate, no pneumothorax, advance emphysema and COPD. Status: Acute (2) COPD (chronic obstructive pulmonary disease): Problem details: - exacerbation with influenza A - 24 hours IV Solu-Medrol, transition to oral prednisone tomorrow - RT referral - prn nebs Status: Acute (3) Recurrent deep vein thrombosis (DVT): Problem details: - history of DVT x2 and PE - will obtain CTA of chest to evaluate given symptoms Status: Acute (4) Influenza A: Problem details: - Given high risk status, treat with Tamiflu Status: Acute (5) Acute on chronic respiratory failure with hypoxia and hypercapnia: Problem details: Was on BiPAP from evening of 09/03/2022 through morning of 09/05/2022. Status: Acute Assessment and Plan: Continue to monitor him off of BiPAP. (6) Oxygen dependent: Status: Acute Assessment and Plan: Resume oxygen via nasal cannula at 0.5-1 liter/minute to maintain saturations greater than 85% at all possible. Plan 1. Reviewed with patient. 2. Answered his questions. 3. Attempt increased activities and monitor his response to this. 4. Anticipate he might possibly be able to be discharged home tomorrow if all continues to go well. 5. Recheck venous blood gas this afternoon and again tomorrow morning. Time Spent With Patient Total time spent: 40 minutes Subjective Time Seen by Provider: 07:30 Date Seen: 09/05/22 Interval history: Hospital day 4. 52-year-old man with advanced emphysema and COPD, with history of tobacco smoking, presents with aches and pains and increased dyspnea. Found to have influenza A. Is chronically on oxygen supplementation at 2 liters/minute via nasal cannula. He develop acute on chronic hypercapnic respiratory failure with rising venous pCO2 to 71 and falling venous pH to 7.2. We initiated treatment with BiPAP therapy. He was fairly comfortable with the setting of EPAP of 5, IPAP of 12, with FiO2 of 25%. Remained on BiPAP for a little over 24 hours and was able to achieve rest. Now switching back low-flow oxygen delivery via nasal cannula and seemingly tolerating. Desaturates with minimal exertion requiring higher flows of oxygen with activity to maintain saturations greater than 85%. He indicates he feels slightly better today compared to yesterday. Does not feel as ?awful.? Shortness of breath is not as bad. Only has chest discomfort with coughing. No chest heaviness, pressure, tightness, or pain. Denies s yncope or near-syncope. Denies nausea vomiting. Minimal exertion causes major decrease in his oxygen saturation levels. Tolerating oral intake. Exam Narrative: Exam Narrative: Appears comfortable. Appears anxious. Nevertheless friendly and cooperative. Lungs with inspiratory and expiratory wheezing but air movement. No rales or rhonchi. Heart tones distant but with normal S1-S2 without murmur, gallop, or rub. Abdomen is thin with active bowel sounds, soft, nontender. Extremities without edema. Clubbing of nails. Moves all 4 extremities. No tremor, asterixis, or ataxia. Skin is intact. No jaundice. Const: Vital Signs, click to edit/add: Vital Signs - 24 hr 09/04/22 15:00 09/04/22 15:00 09/04/22 15:46 Temperature 97.9 F Pulse Rate Pulse Rate [Right Radial] 84 Respiratory Rate 28 H 24 Blood Pressure [Ri ght Arm] 135/81 Pulse Oximetry 92 92 93 Oxygen Delivery Me thod Nasal Cannula Nasal Cannula Oxygen Flow Rate 1 1 Fraction of Inspir ed Oxygen 09/04/22 15:00 09/04/22 19:27 09/04/22 22:17 Temperature 98.9 F Pulse Rate 85 Pulse Rate [Right Radial] 77 Respiratory Rate 18 Blood Pressure [Ri ght Arm] 129/93 H Pulse Oximetry 90 90 Oxygen Delivery Me thod Room Air Oxygen Flow Rate Fraction of Inspir ed Oxygen 09/04/22 22:17 09/04/22 22:19 09/05/22 01:30 Temperature 98.2 F Pulse Rate 73 Pulse Rate [Right Radial] 75 Respiratory Rate 14 Blood Pressure [Ri ght Arm] 118/87 Pulse Oximetry 90 91 Oxygen Delivery Me thod BiPAP Oxygen Flow Rate Fraction of Inspir ed Oxygen 09/05/22 06:15 09/05/22 07:41 09/05/22 07:42 Temperature Pulse Rate Pulse Rate [Right Radial] 92 Respiratory Rate 15 15 Blood Pressure [Ri ght Arm] 121/87 Pulse Oximetry 91 90 90 Oxygen Delivery Me thod BiPAP BiPAP Oxygen Flow Rate 0 Fraction of Inspir ed Oxygen 0.21 09/05/22 07:42 09/05/22 07:43 09/05/22 07:46 Temperature 97.0 F L Pulse Rate 78 Pulse Rate [Right Radial] 84 84 Respiratory Rate 15 15 Blood Pressure [Ri ght Arm] 122/93 H Pulse Oximetry 90 Oxygen Delivery Me thod BiPAP Oxygen Flow Rate 1 Fraction of Inspir ed Oxygen 0.25 09/05/22 09:16 09/05/22 11:03 Temperature 97.1 F L Pulse Rate Pulse Rate [Right Radial] 82 Respiratory Rate 18 Blood Pressure [Ri ght Arm] 125/92 H Pulse Oximetry 91 Oxygen Delivery Me thod BiPAP Oxygen Flow Rate 1 Fraction of Inspir ed Oxygen 0.21 Labs Labs: Laboratory Results - last 24 hr 09/05/22 09/05/22 09/05/22 06:44 06:44 06:44 WBC 16.34 H RBC 4.72 Hgb 13.8 Hct 42.0 MCV 89 MCH 29 MCHC 33 Plt Count 315 VBG pH 7.416 VBG pCO2 61 H* VBG pO2 31.1 VBG HCO3 39 H Sodium 138 Potassium 3.9 Chloride 97 Carbon Dioxide 37 H BUN 23 Creatinine 0.8 Estimated Creat Clear 112.06 Estimated GFR 106 Glucose 90 Calcium 9.0 Phosphorus 2.7 Magnesium 2.1 Troponin I < 0.01 L C-Reactive Protein 0.7 NT-Pro-B Natriuret Pep 58 Procalcitonin 0.08 09/05/22 08:46 WBC RBC Hgb Hct MCV MCH MCHC Plt Count VBG pH 7.423 VBG pCO2 57 H VBG pO2 46.5 VBG HCO3 38 H Sodium Potassium Chloride Carbon Dioxide BUN Creatinine Estimated Creat Clear Estimated GFR Glucose Calcium Phosphorus Magnesium Troponin I C-Reactive Protein NT-Pro-B Natriuret Pep Procalcitonin
[2022-09-05 13:27] LABS: HCO3 VBG 35 mmol/L (21-28); PCO2 VBG 52 mmHG (40-50); PO2 VBG 52.4 mmHG (25-47); pH VBG 7.432 (7.32-7.43)
--- NOTE | 2022-09-05 18:05 | PC.NURSE ---
end of shift. pt has been pleasant. he was on Bi-pap this am. md had me take it off he drooped to 84% on RA. tried repositioning, Aerobika TCDB and nebs. he said he felt sob and harder to breath. put 02 on @ 1L nc. Sao2 89-93% on 1l NC on RA he is 84-89%. he takes it off but he does put it back on when he feels SOB or hard time breathing. he is wearing o2 with all activity. Pt has been resting in bed most of this shift. when up to br becomes sob and has a increased work of breathing . it takes him a few minutes to recover. he is eating, drinking and voiding. tele shows NSR. neds given PRN. SL is patent. he was moved to floor care @ 1500
[2022-09-05] MEDS: ENOXAPARIN 40 MG/0.4 ML INJ SUBCUT (21:20)
[2022-09-06] VITALS (11 sets, daily range): BP systolic 127–140; BP diastolic 84–97; PULSE 65–101; RESP 18–22; TEMP 36.4–36.6; O2SAT 91–92
[2022-09-06] MEDS: IPRAT-ALBUT 0.5-2.5 MG/3 ML NEB 1 NEB IH ×4 (05:33→17:33)
[2022-09-06] MEDS: OMEPRAZOLE 20 MG CAPSULE DR 40 MG PO (05:47)
[2022-09-06 06:45] LABS: pH VBG 7.387 (7.32-7.43)
--- NOTE | 2022-09-06 06:50 | PC.NURSE ---
23-07: pt remained on RA when in bed, maintaining O2 sats >88%. Pt got up to BR on RA, desated into low 70s, became very SOB, 3L applied, rebounded in 1 min. DuoNeb given x 1.?
[2022-09-06 06:51] LABS: HCO3 VBG 39 mmol/L (21-28); PCO2 VBG 64 mmHG (40-50); PO2 VBG 24.5 mmHG (25-47)
[2022-09-06 07:04] LABS: Hematocrit 42.7 % (37.0-53.0); Hemoglobin* 14.2 gm/dL (13.5-17.5); Mean Corpuscular HGB Conc 33 gm/dL (32-36); Mean Corpuscular Hemoglobin 30 pg (26-34); Mean Corpuscular Volume 89 fL (80-100); Platelet Count* 304 K/uL (140-440); Red Blood Count 4.82 m/uL (4.30-5.90)
[2022-09-06 07:05] LABS: Slide Review Reflex No
[2022-09-06] MEDS: BUDESONIDE 0.5 MG/2ML NEB NEB ×2 (07:43→22:13)
[2022-09-06] MEDS: predniSONE 20 MG TABLET 60 MG PO (08:35)
[2022-09-06] MEDS: OSELTAMIVIR PHOSPHATE 75 MG CAPSULE PO ×2 (08:36→21:02)
[2022-09-06] MEDS: SODIUM CHLORIDE 0.9 % (FLUSH) 10 ML SYRINGE 5 ML IVF ×2 (08:36→21:05)
[2022-09-06 09:57] LABS: Albumin* 3.9 g/dL (3.3-5.0); Chloride* 100 mmol/L (96-114); Potassium* 4.1 mmol/L (3.6-5.1); Sodium* 139 mmol/L (135-149)
[2022-09-06 09:58] LABS: ABG PCO2 50 mmHG (35-45); Base Excess ABG 8.3 mmol/L (-3.0-3.0); Carboxyhemoglobin* 1.2 % (0.0-5.0); HCO3 ABG 34 mmol/L (21-28); Oxygen Saturation ABG 91 % (92-100); PO2 ABG 56.4 mmHG (80-105); TCO2 ABG 30 mmol/l (21-30); pH ABG 7.44 (7.35-7.45)
[2022-09-06 09:59] LABS: Creatinine* 0.8 mg/dL (0.5-1.5); Est. Creatinine Clearance* 112.06; Estimated Glomerular Filt Rate 106 ml/min
[2022-09-06 10:00] LABS: Alanine Aminotransferase* 29 U/L (4-50); Alkaline Phosphatase* 60 U/L (40-150); Aspartate Amino Transferase* 44 U/L (12-35); Bilirubin Total* 0.5 mg/dL (0.1-1.5); Calcium* 8.9 mg/dL (8.4-10.6); Carbon Dioxide* 38 mmol/L (20-32); Glucose* 87 mg/dL (60-115); Phosphorus* 3.6 mg/dL (2.5-4.5); Total Protein* 6.5 g/dL (6.0-8.3)
[2022-09-06 10:12] LABS: NT Pro B Type NatriureticPept* 110 pg/mL; Troponin I* < 0.01 ng/mL (0.01-0.04)
[2022-09-06 10:18] LABS: Blood Urea Nitrogen* 22 mg/dL (7-30)
[2022-09-06] MEDS: ALBUTEROL SULFATE 2.5 MG/3 ML VIAL.NEB NEB (11:22)
--- NOTE | 2022-09-06 15:36 | P.IMPN_ITS ---
Progress Note: A&P Assessment and plan (1) Acute and chronic respiratory failure with hypoxia: Problem details: - 2/2 COPD exacerbation and Influenza - RT referral - Tamiflu, nebs, steroids - CT PE protocol negative for pulmonary embolism, no acute infiltrate, no pneumothorax, advance emphysema and COPD. Status: Acute Assessment and Plan: Gradually improving. (2) COPD (chronic obstructive pulmonary disease): Problem details: - exacerbation with influenza A - 24 hours IV Solu-Medrol, transition to oral prednisone tomorrow - RT referral - prn nebs Status: Acute Assessment and Plan: Gradually stabilizing. (3) Recurrent deep vein thrombosis (DVT): Problem details: - history of DVT x2 and PE - will obtain CTA of chest to evaluate given symptoms Status: Acute (4) Influenza A: Problem details: - Given high risk status, treat with Tamiflu Status: Acute Assessment and Plan: Last day of oseltamivir. (5) Acute on chronic respiratory failure with hypoxia and hypercapnia: Problem details: Was on BiPAP from evening of 09/03/2022 through morning of 09/05/2022. Status: Acute Assessment and Plan: Will likely need O2 still when he returns home. Warrants follow-up with his advertising assistant manager at [facility]. Would benefit from outpatient pulmonary rehabilitation. (6) Oxygen dependent: Status: Acute Plan 1. Encouraged patient that he is slowly improving. He states he can feel it. 2. Anticipate he might be ready to be discharged from the hospital as early as 1-2 days from now depending how he does. Time Spent With Patient Total time spent: 40 minutes Subjective Time Seen by Provider: 08:00 Date Seen: 09/06/22 Interval history: Hospital day 5. 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 Found to have influenza A. Is chronically on oxygen supplementation at 2 liters/minute via nasal cannula. He develop acute on chronic hypercapnic respiratory failure with rising venous pCO2 to 71 and falling venous pH to 7.2. We initiated treatment with BiPAP therapy. He was fairly comfortable with the setting of EPAP of 5, IPAP of 12, with FiO2 of 25%. Remained on BiPAP for a little over 24 hours and was able to achieve rest. Now switching back to low-flow oxygen delivery via nasal cannula and seemingly tolerating. Desaturates with minimal exertion requiring higher flows of oxygen with activity to maintain saturations greater than 85%. Did not sleep well as night. Had dyspnea at rest this morning. Much better by the afternoon. He notices that when he sits upright his breathing is much better. Only has chest discomfort with coughing. Cough is still nonproductive. No chest heaviness, pressure, tightness, or pain. Denies syncope or near- syncope. Denies nausea vomiting. Minimal exertion causes major decrease in his oxygen saturation levels. Walking about 15 ft from bedside to bathroom with oxygen at 3 liters/minute he still desaturates to 74%. Tolerating oral intake. Exam Narrative: Exam Narrative: When I 1st saw him this morning he was laying supine with his head on a pillow and he appeared quite uncomfortable and was tachypneic with respirations of 24. This afternoon when I see him he is sitting upright and appears much more comfortable. No longer tachypneic. This morning lungs with inspiratory and expiratory wheezing. No rhonchi or rales. This afternoon his lungs have only minimal wheezing, still with no rhonchi or rales. Heart tones are distant with regular rhythm. Abdomen with active bowel sounds, soft, nontender. Extremities without edema. No focal motor neurologic deficits. No tremor, asterixis, or ataxia. Independent with transfer, station, and gait. Skin is warm, dry, intact. Const: Vital Signs, click to edit/add: Vital Signs - 24 hr 09/05/22 20:00 09/05/22 23:00 09/05/22 23:00 Temperature 98 F Pulse Rate 80 Pulse Rate [Right Radial] 78 Respiratory Rate 18 Blood Pressure [Ri ght Arm] 118/86 Pulse Oximetry 95 93 Oxygen Delivery Me thod Fraction of Inspir ed Oxygen 09/05/22 23:00 09/05/22 23:00 09/05/22 23:00 Temperature 98.2 F Pulse Rate Pulse Rate [Right Radial] 72 92 Respiratory Rate 16 16 16 Blood Pressure [Ri ght Arm] 130/90 H Pulse Oximetry 93 93 Oxygen Delivery Me thod BiPAP Room Air Fraction of Inspir ed Oxygen 09/06/22 03:00 09/06/22 07:09 09/06/22 07:35 Temperature Pulse Rate 75 Pulse Rate [Right Radial] 65 Respiratory Rate 18 Blood Pressure [Ri ght Arm] Pulse Oximetry 91 91 Oxygen Delivery Me thod Room Air Fraction of Inspir ed Oxygen 09/06/22 07:35 09/06/22 07:35 09/06/22 07:35 Temperature 97.8 F Pulse Rate Pulse Rate [Right Radial] 80 80 Respiratory Rate 22 22 Blood Pressure [Ri ght Arm] 133/91 H Pulse Oximetry 91 91 Oxygen Delivery Me thod Room Air Room Air Fraction of Inspir ed Oxygen 09/06/22 10:50 09/06/22 11:01 09/06/22 11:12 Temperature 97.8 F Pulse Rate Pulse Rate [Right Radial] 91 91 Respiratory Rate 20 18 Blood Pressure [Ri ght Arm] 140/97 H Pulse Oximetry 92 91 Oxygen Delivery Me thod Room Air Room Air Room Air Fraction of Inspir ed Oxygen 0.21 Labs Labs: Laboratory Results - last 24 hr 09/06/22 09/06/22 09/06/22 06:11 06:11 06:11 WBC 11.70 H RBC 4.82 Hgb 14.2 Hct 42.7 MCV 89 MCH 30 MCHC 33 Plt Count 304 ABG pH ABG pCO2 ABG pO2 ABG HCO3 ABG Total CO2 ABG O2 Saturation ABG Base Excess VBG pH 7.387 VBG pCO2 64 H* VBG pO2 24.5 L VBG HCO3 39 H Carboxyhemoglobin Sodium 139 Potassium 4.1 Chloride 100 Carbon Dioxide 38 H BUN 22 Creatinine 0.8 Estimated Creat Clear 112.06 Estimated GFR 106 Glucose 87 Calcium 8.9 Phosphorus 3.6 Magnesium 2.0 Total Bilirubin 0.5 AST 44 H ALT 29 Alkaline Phosphatase 60 Troponin I < 0.01 L NT-Pro-B Natriuret Pep 110 Total Protein 6.5 Albumin 3.9 09/06/22 09:26 WBC RBC Hgb Hct MCV MCH MCHC Plt Count ABG pH 7.44 ABG pCO2 50 H ABG pO2 56.4 L ABG HCO3 34 H ABG Total CO2 30 ABG O2 Saturation 91 L ABG Base Excess 8.3 H VBG pH VBG pCO2 VBG pO2 VBG HCO3 Carboxyhemoglobin 1.2 Sodium Potassium Chloride Carbon Dioxide BUN Creatinine Estimated Creat Clear Estimated GFR Glucose Calcium Phosphorus Magnesium Total Bilirubin AST ALT Alkaline Phosphatase Troponin I NT-Pro-B Natriuret Pep Total Protein Albumin
[2022-09-06] MEDS: guaiFENesin 600 MG TAB.ER.12H 1200 MG PO (17:33)
--- NOTE | 2022-09-06 18:34 | PC.NURSE ---
end of shift.? pt is pleasant.?he has chest pain with coughing. he was very tight and diminished and was not moving alot of air. ? tried repositioning, Aerobika TCDB and nebs.? RA he is 88-92%. he has o2 on at times. 1 L nc. ABGs done by RT. ? he takes it off but he does put it back on when he feels SOB or hard time breathing.? he is wearing o2 3L nc with all activity.? Pt has been resting in bed most of this shift.? ? when up to br becomes sob and has a increased work of breathing. he was 74% on 3L nc after BR and was very SOB, neb was given. ? it takes him a few minutes to recover. ? he is eating, drinking and voiding.? tele shows NSR. ? neds are scheduled. .? SL is patent.? EKG was done.
[2022-09-06] MEDS: ENOXAPARIN 40 MG/0.4 ML INJ SUBCUT (21:03)
[2022-09-07] MEDS: IPRAT-ALBUT 0.5-2.5 MG/3 ML NEB 1 NEB IH ×3 (01:01→08:49)
[2022-09-07 01:45] VITALS: BP 151/104; PULSE 72; RESP 18; TEMP 36.5; O2SAT 91
--- NOTE | 2022-09-07 05:53 | PC.NURSE ---
: Pt's oximetry low 90%s on ra/0.5lpm of oxygen via nc, w/ activity 3lpm to br and back oximetry stayed low 90%s, did attempt to walk around nurses station, which he completed but increased wob noted rr stayed 18-22, became a little dizzy at the end, thus encouraged pt to attempt to walk again today but shorter distance, oximetry during the walk remained 90%s on 3lpm. Pt c/o poor sleep again as he wants to lay on side but that causes constant coughing, refused chamomile tea, otherwise resting silently in bed.
[2022-09-07 05:56] VITALS: BP 130/95; PULSE 76; RESP 20; TEMP 36.6; O2SAT 93
[2022-09-07 06:47] LABS: HCO3 VBG 36 mmol/L (21-28); PCO2 VBG 53 mmHG (40-50); PO2 VBG 44.1 mmHG (25-47); pH VBG 7.441 (7.32-7.43)
[2022-09-07] MEDS: OMEPRAZOLE 20 MG CAPSULE DR 40 MG PO (07:19)
[2022-09-07 07:45] VITALS: BP 122/94; PULSE 75; RESP 18; TEMP 36.4; O2SAT 93; O2SAT 95
[2022-09-07] MEDS: predniSONE 20 MG TABLET 60 MG PO (08:49)
[2022-09-07] MEDS: guaiFENesin 600 MG TAB.ER.12H 1200 MG PO (08:49)
[2022-09-07] MEDS: OSELTAMIVIR PHOSPHATE 75 MG CAPSULE PO (08:49)
[2022-09-07] MEDS: BUDESONIDE 0.5 MG/2ML NEB NEB (08:50)
[2022-09-07] MEDS: SODIUM CHLORIDE 0.9 % (FLUSH) 10 ML SYRINGE 5 ML IVF (08:51)
--- NOTE | 2022-09-07 09:57 | PC.SOCIAL ---
Social work: Met with pt at MD request regarding discharge. Pt plans to stay with his mother in her home as he has stairs to his apartment he is unable to get up at this time. Pt's only concern about going to his mother's home is that he has hhome pxygen set up at his home and is not able to move it himself to his mother's home. hospice social worker suggested pt have the oxygen company who provides the service move it to his mother's home. Pt states he does not have an oxygen company that services his home oxygen as he purchased this himself. Pt states he is making calls and will locate someone to move the oxygen to his mother's home. RN aware.
[2022-09-07 11:34] VITALS: BP 143/101; PULSE 88; RESP 18; TEMP 37.1; O2SAT 92
[2022-09-07 13:18] VITALS: PULSE 101; RESP 18; TEMP 37.1
--- NOTE | 2022-09-07 14:11 | PC.NURSE ---
discharge pt has been pleasant. he is anxious and nervous about going home. his o2 unit was taken to his moms. ?he still has chest pain with coughing. repositioning, [employer] TCDB and nebs when SOB and not feeling like he is getting enough air. .? 1L nc he is 88-92%. he takes it off but he does put it back on when he feels SOB or hard time breathing.? he is wearing o2 3L nc? with all activity.? he was up in the chair today. ? when up to br becomes sob and has a increased work of breathing.? ? it takes him a few minutes to recover. ? he is eating, drinking and voiding. ? neds are scheduled.? .? SL is patent, it was d/c intact. went over discharge packet with pt. went over medications, appointments education and instructions. no belonging list found. he got a w/c ride to his moms car with a o2 tank that they will return. all belongings and paperwork sent with pt,.
--- NOTE | 2022-09-08 20:37 | PM.DS1 ---
DS: Providers Provider Time Seen by Provider: 10:00 Date Seen: 09/07/22 Date of admission: 09/02/22 12:49 Primary care physician: Rohan Saldaña MD Admitting Clinician: Zhang Patel MD Consults: 09/02/22 12:49 Consult to Respiratory Therapy [CONS] Routine Comment: Reason(s) for RT Consult:: Consult Attending Physician on discharge: Sylvester Soto MD Date of Discharge: 09/07/22 DS: Diagnosis Discharge Diagnosis (1) Emphysema of lung: Status: Acute (2) Acute and chronic respiratory failure with hypoxia: Status: Acute Problem details: - 2/2 COPD exacerbation and Influenza - RT referral - Tamiflu, nebs, steroids - CT PE protocol negative for pulmonary embolism, no acute infiltrate, no pneumothorax, advance emphysema and COPD. (3) Acute on chronic respiratory failure with hypoxia and hypercapnia: Status: Acute Problem details: Was on BiPAP from evening of 09/03/2022 through morning of 09/05/2022. 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 Found to have influenza A.? Is chronically on oxygen supplementation at 2 liters/minute via nasal cannula. He develop acute on chronic hypercapnic respiratory failure with rising venous pCO2 to 71 and falling venous pH to 7.2.? We initiated treatment with BiPAP therapy.? He was fairly comfortable with the setting of EPAP of 5, IPAP of 12, with FiO2 of 25%.? Remained on BiPAP for a little over 24 hours and was able to achieve rest.? Now switching back to low-flow oxygen delivery via nasal cannula and seemingly tolerating.? Desaturates with minimal exertion requiring higher flows of oxygen with activity to maintain saturations greater than 85%. He notices that when he sits upright his breathing is much better. Only has chest discomfort with coughing.? Cough is still nonproductive.? No chest heaviness, pressure, tightness, or pain.? Denies syncope or near-syncope.? Denies nausea vomiting.? Minimal exertion causes major decrease in his oxygen saturation levels.? Walking about 15 ft from bedside to bathroom with oxygen at 3 liters/minute he still desaturates to 74%.? Tolerating oral intake. Status at Discharge Overall status at discharge: patient is progressing back to baseline Time Spent with Patient Time attestation: Total time spent providing and/or coordinating discharge services: Time spent: Greater than 30 minutes Exam Narrative: Exam Narrative: When I 1st saw him this morning he is sitting upright and appears much more comfortable.? No longer tachypneic at rest as previously, especially when laying supine. His lungs have only minimal wheezing, still with no rhonchi or rales. Heart tones are distant with regular rhythm.? Abdomen with active bowel sounds, soft, nontender.? Extremities without edema.? No focal motor neurologic deficits.? No tremor, asterixis, or ataxia. Independent with transfer, station, and gait.? Skin is warm, dry, intact. Const: Documenting provider has reviewed patient's vital signs: yes DS: Data Imaging Chest x-ray: Attestation: I have reviewed the pertinent imaging results. My impression: Advanced, severe emphysema. Radiologist's impression: No acute abnormalities. CT scan - chest: Attestation: I have reviewed the pertinent imaging results. Radiologist's impression: 1. There is no finding of acute pulmonary embolus. 2. Severe emphysema similar to the prior study. Minimal volume loss/atelectasis in the lingula which is new since the prior study. No pleural effusion or pneumothorax. Discharge Plan Discharge Disposition: Home, Self-Care Date of Admission: 09/02/22 12:49 Attending Provider on Discharge: Sylvester Soto Primary Care Provider: Rohan Saldaña Condition: Unchanged Anticipated Discharge Date/Time: 09/07/22 14:00 Discharge Medications: New albuterol sulfate 2.5 mg /3 mL (0.083 %) Solution For Nebulization 2.5 mg NEB Q4H PRN30 Days Qty: 120 1RF budesonide [Pulmicort] 0.5 mg/2 mL Suspension For Nebulization 0.5 mg NEB BID 30 Days Qty: 120 0RF guaifenesin [Mucinex] 600 mg Tablet Extended Release 12hr 1,200 mg PO BID PRN (Reason: congestion) Qty: 20 0RF prednisone 10 mg tablet 10 mg PO DIRECTED Qty: 22 0RF Rx Instructions: Taper instructions: 4 tabs daily x 2 days, then 3 tabs daily 2 days, then 2 tabs daily x 2 days, then 1 tab daily x 2 days, then 1/2 tab daily x 2 days, then stop. Continued Trelegy Ellipta 100-62.5-25 mcg blister with device 1 inh inhalation DAILY albuterol sulfate 90 mcg/actuation HFA aerosol inhaler 2 inh inhalation Q4-6H PRN No Action (DME) Home Oxygen Misc See Rx Instructions .Route Qty: 1 0RF Rx Instructions: As directed Discharge Orders: Discharge Order (Routine); Ordered 09/07/22 Ordered By: Sylvester Soto Patient Education: Albuterol (By breathing), Prednisone (By mouth), Guaifenesin (By mouth), Budesonide (By breathing), COPD (Chronic Obstructive Pulmonary Disease) (DC), Chronic Lung Disease and Infection Prevention (DC) Additional Instructions: 1. Oxygen 1 LPM via NC at rest, 3 LPM via NC with any activity; 2. Follow-up with primary care physician in 1-2 weeks, sooner if needed; 3. Return to the emergency department if needed; 4. Set up follow- up with service coordinator elderly facility in 3-6 weeks; 5. Consider pulmonary rehabilitation in the near future. Activity Level: Activity as Tolerated Discharge Diet: Regular Follow Up Appointments: Rohan Saldaña MD [Primary Care Provider] - 09/20/22 7:15 am Forms: [employer] Info Instructions
== END 2022-09-07 14:00 | disposition home or self-care (01) | DRG 189 ==
LOC: ED 10:20 → MEDSURG 12:15
PROVIDERS: Family Medicine; Internal Medicine; Admitting Provider Hospitalist; Emergency Provider Emergency Medicine Emergency Medical Services; PCP Family Medicine; Visit Provider Hospitalist
DX: J96.21 Acute and chronic respiratory failure with hypoxia (principal); J44.1 Chronic obstructive pulmonary disease with (acute) exacerbation; J96.22 Acute and chronic respiratory failure with hypercapnia; J10.1 Influenza due to other identified influenza virus with other respiratory manifestations; Z99.81 Dependence on supplemental oxygen; Z86.718 Personal history of other venous thrombosis and embolism; Z87.891 Personal history of nicotine dependence; Z86.711 Personal history of pulmonary embolism
CPT/HCPCS: 36415; 36600; 71045; 71260; 80048; 80053; 80076; 82803; 83605; 83735; 83880; 84100; 84145; 84443; 84484; 85025; 85027; 86140; 87040; 87502; 87634; 87635; 92950; 93005; 93306; 94640; 94660; 94664; 94761; 99285; A9270; J1100; J1170; J1650; J2060; J2270; J2930; J7512; J7626; Q9957; Q9967

== ENCOUNTER 2022-09-07 16:01 | Observation (INO) | payer MEDICARE, SELFPAY ==
[2022-09-07 16:15] VITALS: O2SAT 79; O2SAT 90; O2SAT 93
[2022-09-07 16:36] VITALS: BP 149/98; PULSE 101; RESP 24; TEMP 36.7; O2SAT 90; BMI 21.2
--- NOTE | 2022-09-07 16:39 | W.PM.HOT ---
Acute Home Oxygen Therapy Acute Home Oxygen Therapy Provider Note Provider Note: Patient was admitted on 09/07/22 at 16:01 and will be discharging on 09/07/22. Patient is desaturating with SATs of 79% on room air due to COPD. Alternative therapies have been attempted and have not been successful in maintaining the patient's saturation level above 88%. Supplemental O2 is required. This patient is mobile within the home and requires portability.
[2022-09-07 16:41] VITALS: RESP 24; O2SAT 90
--- NOTE | 2022-09-07 17:32 | PM.IMHP1 ---
Hospitalist- H&P: HPI History of Present Illness Date Seen: 09/07/22 Chief complaint: Just released and oxygen isn't working Narrative: Carl Prasad is a 52 year old male who was admitted to the hospital on 09/02/2022 for a COPD exacerbation in the setting of influenza A infection, and discharged home this afternoon. He went to his mother's house and was unable to get his home oxygen to work properly. He re-presented to the hospital this afternoon for assistance with home oxygen. He was immediately seen by respiratory therapy on arrival, in the process has been initiated for for a new home O2 device. He will be able to be discharged with [employer]'s portable oxygen concentrator, and they will be going to his home in the next few days to set him up. No other changes made to recent H&P or discharge summary from earlier today. Patient is requesting nebulizer treatment while here. Review of Systems Status of ROS: Reports: 10 or more systems reviewed and unremarkable except as noted in History and below [facility] Medical History (Updated 09/07/22 @ 17:36 by Juanita Coello MD) COPD (chronic obstructive pulmonary disease) Former smoker Oxygen dependent Recurrent deep vein thrombosis (DVT) Surgical History (Updated 09/02/22 @ 13:04 by Juanita Coello MD) H/O lumbar discectomy Social History Highest level of school completed/degree received: 12th grade, no diploma Smoking Status: Former smoker What tobacco products do you use: cigarettes Smoking quit date/years: <= 15 years ago Do you use any of these nicotine containing products: None How often do you have a drink containing alcohol: never AUDIT-C Alcohol total score: 0 Non-prescribed substance use: denies use Caffeine: Yes service: No Meds Home Medications and Allergies Home Medications Medication Instructions Recorded Confirmed Type albuterol sulfate 90 mcg/actuation 2 inh inhalation Q4-6H PRN 09/02/22 09/02/22 History aerosol inhaler fluticasone fur. 100 mcg-umeclid 1 inh inhalation DAILY 09/02/22 09/02/22 History 62.5 mcg-vilant 25 mcg inhalat.powder (Trelegy Ellipta) Allergies Allergy/AdvReac Type Severity Reaction Status Date / Time No Known Drug Allergies Allergy Verified 09/02/22 08:18 Exam Narrative: Exam Narrative: GEN: Alert and nontoxic, sitting comfortably in bedside chair HEENT: Normal external ears, EOMIs bilaterally, no scleral icterus CV: RRR, No concerning murmurs, rubs, or gallops R: Intermittent tachypnea, stable at rest, wearing home O2. Decreased air movement bilateral bases with mild wheezing bilateral apices, baseline Ext: wwp, no concerning edema Skin: No concerning skin lesions or rashes on exposed skin Neuro: Nonfocal Psych: Appropriate Const: Vital Signs, click to edit/add: Vital Signs - 24 hr 09/07/22 16:36 09/07/22 16:41 Temperature 98.0 F Pulse Rate [Left P ulse Oximeter] 101 H Respiratory Rate 24 24 Blood Pressure [Le ft Arm] 149/98 H Pulse Oximetry 90 90 Oxygen Delivery Me thod Nasal Cannula Nasal Cannula Oxygen Flow Rate 3 3 Assessment and Plan Assessment and plan (1) COPD (chronic obstructive pulmonary disease): Problem comment: - oxygen dependent Status: Acute Assessment and Plan: - recent flare with influenza A (2) Oxygen dependent: Status: Acute Assessment and Plan: - appreciate input from RT to help patient a new concentrator today - he is discharged from the floor again today in stable condition
[2022-09-07] MEDS: IPRAT-ALBUT 0.5-2.5 MG/3 ML NEB 1 NEB IH (17:50)
--- NOTE | 2022-09-07 18:47 | PC.NURSE ---
pt came got admitted, got 02 and a nebs and food and was d/c with o2. RT and MD both saw this pt.
== END 2022-09-07 18:30 | disposition home or self-care (01) ==
PROVIDERS: Admitting Provider Family Medicine; PCP Family Medicine
DX: J44.9 Chronic obstructive pulmonary disease, unspecified (principal); Z99.81 Dependence on supplemental oxygen; J10.1 Influenza due to other identified influenza virus with other respiratory manifestations; J96.21 Acute and chronic respiratory failure with hypoxia; J96.22 Acute and chronic respiratory failure with hypercapnia; I82.409 Acute embolism and thrombosis of unspecified deep veins of unspecified lower extremity; Z87.891 Personal history of nicotine dependence
CPT/HCPCS: 94640; G0378

== ENCOUNTER 2022-10-11 13:31 | Outpatient (CLI) | payer MEDICARE, SELFPAY ==
[2022-10-11 20:16] LABS: Albumin* 4.4 g/dL (3.3-5.0)
[2022-10-11 20:17] LABS: Chloride* 98 mmol/L (96-114); Potassium* 4.2 mmol/L (3.6-5.1); Sodium* 141 mmol/L (135-149)
[2022-10-11 20:19] LABS: Bilirubin Total* 0.7 mg/dL (0.1-1.5); Carbon Dioxide* 35 mmol/L (20-32); Cholesterol* 238 mg/dL (90-199); Creatinine* 0.8 mg/dL (0.5-1.5); Estimated Glomerular Filt Rate 106 ml/min; Total Protein* 7.2 g/dL (6.0-8.3)
[2022-10-11 20:20] LABS: Alanine Aminotransferase* 23 U/L (4-50); Alkaline Phosphatase* 91 U/L (40-150); Aspartate Amino Transferase* 25 U/L (12-35); Blood Urea Nitrogen* 16 mg/dL (7-30); Calcium* 9.3 mg/dL (8.4-10.6); Glucose* 94 mg/dL (60-115); HDL Cholesterol* 51 mg/dL (>=40); LDL Cholesterol Calculated 150 mg/dL (<100); Triglycerides* 185 mg/dL (40-149)
[2022-10-11 20:53] LABS: PSA Screen* 1.75 ng/mL (0.10-4.00)
== END 2022-10-11 13:32 | disposition home or self-care (01) ==
PROVIDERS: PCP Family Medicine; Visit Provider Family Medicine
DX: R03.0 Elevated blood-pressure reading, without diagnosis of hypertension (principal); R07.9 Chest pain, unspecified; Z13.6 Encounter for screening for cardiovascular disorders; Z12.5 Encounter for screening for malignant neoplasm of prostate
CPT/HCPCS: 80053; 80061; 84153

== ENCOUNTER 2023-04-14 11:41 | Emergency (ER) | payer MEDICARE, SELFPAY ==
[2023-04-14] VITALS (19 sets, daily range): BP systolic 121–178; BP diastolic 92–112; PULSE 83–100; RESP 16–18; TEMP 36.2; O2SAT 98–100; BMI 23.1
[2023-04-14 12:32] LABS: Troponin, Point-of-Care* 0.01 ng/ml (0.01-0.04)
[2023-04-14 12:45] LABS: Basophils Absolute Auto 0.06 K/uL (0.00-0.30); Basophils Percent Auto 0.6 % (0.0-3.0); Eosinophils Absolute Auto 0.58 K/uL (0.00-0.50); Eosinophils Percent Auto 6.3 % (0.0-7.0); Hemoglobin* 14.4 gm/dL (13.5-17.5); Immature Granulocytes Abs Auto 0.04 K/uL (0.00-0.30); Immature Granulocytes Pct Auto 0.4 %; Lymphocytes Percent Auto 16.8 % (20-44); Mean Corpuscular HGB Conc 32 gm/dL (32-36); Mean Corpuscular Hemoglobin 28 pg (26-34); Mean Corpuscular Volume 89 fL (80-100); Monocytes Percent Auto 8.8 % (0.0-11.0); Neutrophils Absolute Auto 6.22 K/uL (1.7-7.0); Neutrophils Percent Auto 67.1 % (42.0-72.0); Platelet Count* 372 K/uL (140-440); RDW Coefficient of Variation % 12.1 % (11.5-15.5); Red Blood Count 5.08 m/uL (4.30-5.90); White Blood Count* 9.28 K/uL (4.50-11.00)
[2023-04-14 12:59] LABS: Slide Review Reflex No
[2023-04-14 13:14] LABS: Albumin* 4.4 g/dL (3.3-5.0); Chloride* 96 mmol/L (96-114); D Dimer Quantitative* 0.31 ug/ml (0.00-0.50); Sodium* 139 mmol/L (135-149)
[2023-04-14 13:15] LABS: Potassium* 4.3 mmol/L (3.6-5.1)
[2023-04-14 13:17] LABS: Creatinine* 0.8 mg/dL (0.5-1.5); Est. Creatinine Clearance* 116.47; Estimated Glomerular Filt Rate 106 ml/min
[2023-04-14 13:18] LABS: Alanine Aminotransferase* 17 U/L (4-50); Alkaline Phosphatase* 84 U/L (40-150); Aspartate Amino Transferase* 23 U/L (12-35); Bilirubin Direct* 0.1 mg/dL (0.0-0.5); Bilirubin Total* 0.4 mg/dL (0.1-1.5); Blood Urea Nitrogen* 11 mg/dL (7-30); Calcium* 9.4 mg/dL (8.4-10.6); Carbon Dioxide* 38 mmol/L (20-32); Glucose* 109 mg/dL (60-115); Lipase* 39 U/L (23-300); Total Protein* 7.6 g/dL (6.0-8.3)
[2023-04-14 13:21] LABS: C Reactive Protein* 0.7 mg/dL (0.5-1.0)
--- NOTE | 2023-04-14 13:25 | CRLHL7_ITS ---
For Patients: As a result of the Century Cures Act, medical imaging exams and procedure reports are released immediately into your electronic medical record. You may view this report before your referring provider. If you have questions, please contact your health care provider. INDICATION: Shortness of breath TECHNIQUE: Chest 2 views. COMPARISON: 09/02/2022 FINDINGS: Cardiovascular and mediastinum: Heart size and vasculature are normal in caliber and appearance. Mediastinum is within normal limits. Lungs and pleural spaces: Overinflation. Lungs are clear. No sign of infiltrate or mass. No sign of pleural effusion. No pneumothorax. Bones and soft tissues: No significant findings. IMPRESSION: No acute findings. Inflation. Dictated by René Grey MD @ 04/14/2023 2:38:26 PM Dictated by: René Grey MD @ 04/14/2023 14:38:29 (Electronically Signed)
[2023-04-14 13:33] LABS: Troponin I* < 0.01 ng/mL (0.01-0.04)
--- NOTE | 2023-04-14 14:44 | ED.GENADULT ---
HPI - General Adult General Chief complaint: Chest Pain Stated complaint: heartattack Time Seen by Provider: 04/14/23 12:11 Source: patient Mode of arrival: ambulatory Limitations: no limitations History of Present Illness HPI narrative: 53-year-old male coming in today complaining of 4 hours of left-sided chest pain. The pain is constant and gets worse when he takes a deep breath. Describes it as a sharp pain that becomes shooting pain when he takes a deep breath. He denies any new physical activity. He denies any trauma to the chest wall. He is concerned he is having heart attack. He denies any nausea or vomiting. No diaphoresis or dizziness. He is not short of breath above his baseline, he does have oxygen dependent COPD. No fevers or chills. No recent traveling. He does have a history of DVTs. He is not currently anticoagulated. He denies any abdominal pain. When he points to the area of pain it is just distal and medial to his nipple. He was resting at home when the pain started. Related Data Home Medications Medication Instructions Recorded Confirmed fluticasone fur. 100 mcg-umeclid 1 inh inhalation DAILY 09/02/22 10/11/22 62.5 mcg-vilant 25 mcg inhalat.powder (Trelegy Ellipta) Previous Rx's Medication Instructions Recorded Home Oxygen #1 ea 09/07/22 albuterol sulfate 90 mcg/actuation 2 inh inhalation Q4-6H PRN 10/11/22 aerosol inhaler shortness of breath or wheezing #6.7 grams Allergies Allergy/AdvReac Type Severity Reaction Status Date / Time No Known Drug Allergies Allergy Verified 10/11/22 12:39 Review of Systems Status of ROS: Reports: 10 or more systems reviewed and unremarkable except as noted in History and below [facility] Medical History Encounter for pre-operative examination ?Z01.818 - Encounter for other preprocedural examination (ICD-10) Recurrent deep vein thrombosis (DVT) ?I82.409 - Acute embolism and thrombosis of unspecified deep veins of unspecified lower extremity (ICD-10) Oxygen dependent ?Z99.81 - Dependence on supplemental oxygen (ICD-10) Former smoker ?Z87.891 - Personal history of nicotine dependence (ICD-10) COPD (chronic obstructive pulmonary disease) ?J44.9 - Chronic obstructive pulmonary disease, unspecified (ICD-10) Acute and chronic respiratory failure with hypoxia ?J96.21 - Acute and chronic respiratory failure with hypoxia (ICD-10) Surgical History H/O lumbar discectomy ?Z98.890 - Other specified postprocedural states (ICD-10) Social History Highest level of school completed/degree received: 12th grade, no diploma Smoking Status: Former smoker What tobacco products do you use: cigarettes Smoking quit date/years: <= 15 years ago Do you use any of these nicotine containing products: None Second hand tobacco smoke exposure: No How often do you have a drink containing alcohol: never AUDIT-C Alcohol total score: 0 Non-prescribed substance use: denies use Caffeine: Yes Little interest or pleasure in doing things: not at all Feeling down, depressed, or hopeless: not at all service: No Exam Narrative: Exam Narrative: Well-nourished well-developed patient in no acute distress. Alert and oriented. Answers questions appropriately. Mood and affect are appropriate. Thoughts are goal oriented and rational. No tangential or magical thinking noted. HEENT: Normocephalic atraumatic. Pupils are equally round reactive to light. Extraocular muscles are intact. Conjunctivae are moist without any icterus noted. Moist mucous membranes. Posterior pharynx is normal. Neck is soft without any lymphadenopathy or thyromegaly. No masses are appreciated. Cardiovascular: Heart is regular rate and rhythm S1 and S2 are present without any murmurs. Lungs: Significantly decreased breath sounds bilaterally with end-expiratory wheezes bilaterally. I cannot reproduce his chest pain. Chest wall has normal appearance. Abdomen: Soft and nontender nondistended with normal bowel sounds. No guarding or rebound. No masses or organomegaly appreciated. Extremities: Bilateral lower extremities are without edema. Normal DP and PT pulses. Skin: Well perfused without any obvious rashes. Const: Vital Signs, click to edit/add: Vital Signs - 24 hr 04/14/23 11:50 04/14/23 11:51 04/14/23 12:40 Temperature 97.1 F L Pulse Rate 87 Pulse Rate [Right Pulse Oximeter] 95 Respiratory Rate 18 Blood Pressure Blood Pressure [Ri ght Upper Arm] 178/100 H Pulse Oximetry 100 98 100 Oxygen Delivery Me thod Room Air 04/14/23 13:00 04/14/23 13:01 04/14/23 13:02 Temperature Pulse Rate 95 94 94 Pulse Rate [Right Pulse Oximeter] Respiratory Rate Blood Pressure 121/92 H Blood Pressure [Ri ght Upper Arm] Pulse Oximetry 100 100 98 Oxygen Delivery Me thod 04/14/23 13:30 04/14/23 13:32 04/14/23 14:00 Temperature Pulse Rate 94 97 83 Pulse Rate [Right Pulse Oximeter] Respiratory Rate Blood Pressure 133/106 H Blood Pressure [Ri ght Upper Arm] Pulse Oximetry 100 100 100 Oxygen Delivery Me thod 04/14/23 14:02 04/14/23 14:30 04/14/23 14:32 Temperature Pulse Rate 88 91 95 Pulse Rate [Right Pulse Oximeter] Respiratory Rate Blood Pressure 138/95 H 140/96 H Blood Pressure [Ri ght Upper Arm] Pulse Oximetry 100 99 98 Oxygen Delivery Me thod 04/14/23 15:00 04/14/23 15:01 Temperature Pulse Rate 87 92 Pulse Rate [Right Pulse Oximeter] Respiratory Rate Blood Pressure 149/109 H Blood Pressure [Ri ght Upper Arm] Pulse Oximetry 100 100 Oxygen Delivery Me thod Course Course Hospital Course: EKG, read by me, shows normal sinus rhythm with a pulse of 96. Serial troponins x3 were normal. Negative D-dimer. Remainder of lab work unremarkable. Chest x-ray, read by me, does not show any acute pathology. Repeat EKG unchanged. Vital Signs Vital signs: Initial Vital Signs Respiratory Effort Labored, Nasal Flaring 04/14/23 11:50 Respiratory Depth Deep 04/14/23 11:50 Respiratory Pattern Tachypnea 04/14/23 11:50 Pulse Oximetry 100 04/14/23 11:50 Vital Signs Pulse Oximetry 100 04/14/23 11:50 Temperature 97.1 F L 04/14/23 11:51 Pulse Rate 92 04/14/23 15:01 Respiratory Rate 18 04/14/23 11:51 Blood Pressure 149/109 H 04/14/23 15:01 Pulse Oximetry 100 04/14/23 15:01 Oxygen Delivery Method Room Air 04/14/23 11:51 Medical Decision Making MDM Narrative Medical decision making narrative: 53-year-old male with chest pain. Discussed differential diagnoses including PE which is less likely with a normal D-dimer, coronary artery disease less likely with normal EKG and normal serial troponins, pericarditis less likely with the location of his discomfort a normal EKG and no elevated inflammatory markers. We discussed chest wall pain, costochondritis as more likely the cause of his pain. There is no evidence of pneumothorax, or pneumonia. At this point recommend watchful monitoring, heat to the chest wall, Tylenol as needed. Return if symptoms are getting worse. Lab Data Lab results reviewed: Yes I reviewed the patient's lab results Labs: Lab Results 04/14/23 04/14/23 04/14/23 Range/Units 12:00 13:30 15:00 WBC 9.28 (4.50-11.00) K/uL RBC 5.08 (4.30-5.90) m/uL Hgb 14.4 (13.5-17.5) gm/dL Hct 45.0 (37.0-53.0) % MCV 89 (80-100) fL MCH 28 (26-34) pg MCHC 32 (32-36) gm/dL RDW Coeff of Edin 12.1 (11.5-15.5) % Plt Count 372 (140-440) K/uL Neut % (Auto) 67.1 (42.0-72.0) % Lymph % (Auto) 16.8 L (20-44) % [place] % (Auto) 8.8 (0.0-11.0) % Eos % (Auto) 6.3 (0.0-7.0) % Baso % (Auto) 0.6 (0.0-3.0) % Neut # (Auto) 6.22 (1.7-7.0) K/uL Lymph # (Auto) 1.60 (0.90-2.90) K/uL [place] # (Auto) 0.80 (0.00-0.90) K/UL Eos # (Auto) 0.58 H (0.00-0.50) K/uL Baso # (Auto) 0.06 (0.00-0.30) K/uL Abs Immat Gran (auto) 0.04 (0.00-0.30) K/uL Imm/Tot Granulo (auto) 0.4 % D-Dimer Quant (PE/DVT) 0.31 (0.00-0.50) ug/ml Sodium 139 (135-149) mmol/L Potassium 4.3 (3.6-5.1) mmol/L Chloride 96 (96-114) mmol/L Carbon Dioxide 38 H (20-32) mmol/L BUN 11 (7-30) mg/dL Creatinine 0.8 (0.5-1.5) mg/dL Estimated Creat Clear 116.47 Estimated GFR 106 ml/min Glucose 109 (60-115) mg/dL Calcium 9.4 (8.4-10.6) mg/dL Total Bilirubin 0.4 (0.1-1.5) mg/dL Direct Bilirubin 0.1 (0.0-0.5) mg/dL AST 23 (12-35) U/L ALT 17 (4-50) U/L Alkaline Phosphatase 84 (40-150) U/L Troponin I < 0.01 L (0.01-0.04) ng/mL C-Reactive Protein 0.7 (0.5-1.0) mg/dL Total Protein 7.6 (6.0-8.3) g/dL Albumin 4.4 (3.3-5.0) g/dL Lipase 39 (23-300) U/L POC Troponin I 0.01 0.00 L 0.00 L (0.01-0.04) ng/ml Imaging Data Chest x-ray: Attestation: I have reviewed the pertinent imaging results. Radiologist's impression: Chest 2 views. COMPARISON: 09/02/2022 FINDINGS: Cardiovascular and mediastinum: Heart size and vasculature are normal in caliber and appearance. Mediastinum is within normal limits. Lungs and pleural spaces: Overinflation. Lungs are clear. No sign of infiltrate or mass. No sign of pleural effusion. No pneumothorax. Bones and soft tissues: No significant findings. IMPRESSION: No acute findings. Inflation. ECG Data Attestation: I personally reviewed and interpreted this ECG as follows: Discharge Plan Discharge Clinical Impression: Chest pain Patient Disposition: Home, Self-Care Condition: Stable Additional Instructions: Nothing life-threatening was found to be the cause of your chest pain today. Okay to use a heating pad to the chest wall, okay to use Tylenol as needed/as directed for discomfort. If your pain is getting worse, return to the ER. Prescriptions: No Action albuterol sulfate 90 mcg/actuation HFA aerosol inhaler 2 inh inhalation Q4-6H PRN (Reason: shortness of breath or wheezing) Qty: 6.7 12RF (DME) Home Oxygen Misc See Rx Instructions .Route Qty: 1 0RF Rx Instructions: As directed Trelegy Ellipta 100-62.5-25 mcg blister with device 1 inh inhalation DAILY Follow Up/Referrals: Rohan Saldaña MD [Primary Care Provider] - Stand Alone Forms: [employer] Info Instructions
--- NOTE | 2023-04-14 15:08 | ED.NURSE ---
Third troponin drawn, EKG completed. Patient notes pain is present currently, 12/26. Notes it has resolved intermittently. Returns as a burning sensation when it is present.
== END 2023-04-14 15:41 | disposition home or self-care (01) ==
PROVIDERS: Emergency Provider Family Medicine; PCP Family Medicine
DX: R07.9 Chest pain, unspecified (principal)
CPT/HCPCS: 36415; 71046; 80048; 80076; 83690; 84484; 85025; 85379; 86140; 93005; 94761; 99284; 99285

== ENCOUNTER 2023-04-15 03:11 | Outpatient (CLI) | payer MEDICARE, SELFPAY | END 2023-04-15 03:12 | disposition home or self-care (01) | LOC: AMB 04-18 16:58 | PROVIDERS: PCP Family Medicine; Visit Provider Internal Medicine | DX: R06.09 Other forms of dyspnea (principal) | CPT/HCPCS: A0425; A0429 ==

== ENCOUNTER 2023-04-15 03:43 | Emergency (ER) | payer MEDICARE, SELFPAY ==
[2023-04-15] VITALS (12 sets, daily range): BP systolic 128–170; BP diastolic 78–116; PULSE 98–128; RESP 19–28; TEMP 36.2–36.7; O2SAT 88–100; BMI 24.4
--- NOTE | 2023-04-15 03:54 | CRLHL7_ITS ---
For Patients: As a result of the Cures Act, medical imaging exams and procedure reports are released immediately into your electronic medical record. You may view this report before your referring provider. If you have questions, please contact your health care provider. INDICATION: Dyspnea COMPARISON: April 14, 2023 TECHNIQUE: Two single view images of the chest were acquired. One is labeled 4:08 a.m. and the other is labeled 4:28 a.m.. FINDINGS: On the 4:08 a.m. study, there are findings of COPD. There is a very large left pneumothorax with near complete collapse of the left lung and early findings of tension. Specifically, the diaphragm is down really displaced and the heart is minimally displaced towards the right On the 4:28 a.m. study, the pneumothorax is significantly improved but still large. There is no evidence of tension on this image. IMPRESSION: Two images were obtain one at 4:08 a.m. and the other at 4:28 a.m.. There is hyperinflation consistent with COPD. On the earlier study, there is a very large left pneumothorax with findings of early tension. On the 2nd study, the pneumothorax is improved but is still large and there is no longer evidence of tension. Dictated by Carl Castro MD @ 04/15/2023 4:44:11 AM (Electronically Signed)
--- NOTE | 2023-04-15 04:04 | ED.SOB ---
HPI - SOB/Dyspnea General Chief Complaint: Shortness of Breath/Dyspnea Stated Complaint: respiratory distress Time Seen by Provider: 04/15/23 04:07 History of Present Illness HPI Narrative: Patient is a 53-year-old gentleman who was discharged from the emergency room approximately 12 hours ago after being seen for left-sided chest pain and shortness of breath. Patient had serial troponin is negative D-dimer systole negative workup. Patient went home and had progressive shortness of breath. Patient is a noted COPD patient with chronic oxygen requirement. Patient became more more short of breath and called for EMS and upon arrival was pursed lip breathing with accessory muscles. Patient became more and more obtunded and was nearly intubated in the field when he will take a deep breath and began talking. Patient remained significantly tachypneic but was brought in on 100% oxygen. He was satting roughly 88%. He has been unable to answer any questions due to his shortness of breath. I do not believe there have been any other new symptoms based on EMS is report. Upon arrival patient was placed on BiPAP 03/03 with gradual increase of his oxygen saturation to 98%. Portable chest x-ray was obtained and large pneumothorax was noted on the left side. BiPAP was immediately discontinued the patient is placed high-flow oxygen which had been unsuccessful upon arrival. Using standard technique I did sterilely placed a angio catheter into the pleural space using the anterior approach midclavicular line and what I palpated to be the 2nd intercostal space. The catheter was left in place and the needle was removed. Patient coughed grossly and his oxygen saturations improved to 100% high-flow. At this point we are titrating down his oxygen to maintain his saturation. Repeat chest x-ray shows improving pneumothorax on the left. Related Data Home Medications Medication Instructions Recorded Confirmed fluticasone fur. 100 mcg-umeclid 1 inh inhalation DAILY 09/02/22 10/11/22 62.5 mcg-vilant 25 mcg inhalat.powder (Trelegy Ellipta) Previous Rx's Medication Instructions Recorded Home Oxygen #1 ea 09/07/22 albuterol sulfate 90 mcg/actuation 2 inh inhalation Q4-6H PRN 10/11/22 aerosol inhaler shortness of breath or wheezing #6.7 grams Allergies Allergy/AdvReac Type Severity Reaction Status Date / Time No Known Drug Allergies Allergy Verified 10/11/22 12:39 Review of Systems Status of ROS: Reports: unobtainable due to medical condition [facility] Medical History Encounter for pre-operative examination ?Z01.818 - Encounter for other preprocedural examination (ICD-10) Recurrent deep vein thrombosis (DVT) ?I82.409 - Acute embolism and thrombosis of unspecified deep veins of unspecified lower extremity (ICD-10) Oxygen dependent ?Z99.81 - Dependence on supplemental oxygen (ICD-10) Former smoker ?Z87.891 - Personal history of nicotine dependence (ICD-10) COPD (chronic obstructive pulmonary disease) ?J44.9 - Chronic obstructive pulmonary disease, unspecified (ICD-10) Acute and chronic respiratory failure with hypoxia ?J96.21 - Acute and chronic respiratory failure with hypoxia (ICD-10) Surgical History H/O lumbar discectomy ?Z98.890 - Other specified postprocedural states (ICD-10) Social History Highest level of school completed/degree received: 12th grade, no diploma Smoking Status: Former smoker What tobacco products do you use: cigarettes Smoking quit date/years: <= 15 years ago Do you use any of these nicotine containing products: None Second hand tobacco smoke exposure: No How often do you have a drink containing alcohol: never AUDIT-C Alcohol total score: 0 Non-prescribed substance use: denies use Caffeine: Yes Little interest or pleasure in doing things: not at all Feeling down, depressed, or hopeless: not at all service: No Exam Narrative: Exam Narrative: EXAM GENERAL: Patient appears comfortable and well. EYES: No scleral icterus. ENT: Tympanic membranes and oropharynx normal. THYROID: no thyroid nodules or thyromegaly. LYMPH: No supraclavicular or cervical lymphadenopathy. SKIN: Visible skin seen during exam normal or with benign process only. EXT: No dependent lower extremity pedal edema. HEART: Regular rate and rhythm with no murmurs, rubs, or gallops. LUNGS: Clear to auscultation bilaterally with no crackles or wheezes. ABD: Soft, non tender, non distended. PSYCH: Good eye contact, speech is not pressured. Course Course Hospital Course: During the patient's hospital course anterior needle decompression was achieved with a angio catheter in the 2nd intercostal space in the midclavicular line on the left. Repeat chest x-ray showed improvement of pneumothorax. Pigtail chest tube was then placed using the 4th intercostal space in the anterior axillary line after suitable anesthesia and sterilization of the site. Once the needle was placed it was removed leaving the catheter in place. This catheter was secured in repeat chest x-ray was obtained. Catheter was placed in connection with a pleura vac. patient is now being transferred for higher level of care at [facility]. MDM - SOB/Dyspnea MDM Narrative Medical decision making narrative: Patient is a 53-year-old gentleman who comes in with shortness of breath. Found have a large pneumothorax on the left that is felt to be tension pneumothorax. Weakness plan trouble keeping his oxygen saturation up however I did do an anterior needle decompression using the 2nd intercostal space on the left. This resulted in immediate improvement in his oxygen saturation. I then called in the local surgeon who was able to assist me remotely with placement of tail catheter chest tube. Patient is now medically much more stable. Labs show respiratory acidosis. Arrangements have been made for the patient be transferred to the closest facility with a acceptable bed at [facility]. The pigtail catheter is hooked up to Pleur-evac as per protocol patient is transferred in stable condition. Lab Data Labs: Lab Results 04/15/23 Range/Units 04:00 WBC 15.71 H (4.50-11.00) K/uL RBC 4.90 (4.30-5.90) m/uL Hgb 14.0 (13.5-17.5) gm/dL Hct 44.1 (37.0-53.0) % MCV 90 (80-100) fL MCH 29 (26-34) pg MCHC 32 (32-36) gm/dL RDW Coeff of Edin 12.3 (11.5-15.5) % Plt Count 433 (140-440) K/uL Neut % (Auto) 52.3 (42.0-72.0) % Lymph % (Auto) 28.8 (20-44) % [place] % (Auto) 11.7 H (0.0-11.0) % Eos % (Auto) 5.7 (0.0-7.0) % Baso % (Auto) 0.6 (0.0-3.0) % Neut # (Auto) 8.20 H (1.7-7.0) K/uL Lymph # (Auto) 4.50 H (0.90-2.90) K/uL [place] # (Auto) 1.80 H (0.00-0.90) K/UL Eos # (Auto) 0.90 H (0.00-0.50) K/uL Baso # (Auto) 0.10 (0.00-0.30) K/uL Abs Immat Gran (auto) 0.10 (0.00-0.30) K/uL Imm/Tot Granulo (auto) 0.9 % VBG pH 7.142 L* (7.32-7.43) VBG pCO2 > 98 H* (40-50) mmHG VBG pO2 61.2 H (25-47) mmHG VBG HCO3 (21-28) mmol/L Sodium 138 (135-149) mmol/L Potassium 4.6 (3.6-5.1) mmol/L Chloride 96 (96-114) mmol/L Carbon Dioxide 36 H (20-32) mmol/L BUN 15 (7-30) mg/dL Creatinine 0.7 (0.5-1.5) mg/dL Estimated GFR 110 ml/min Glucose 214 H (60-115) mg/dL Calcium 8.8 (8.4-10.6) mg/dL Magnesium 1.9 (1.5-2.6) mg/dL Total Bilirubin 1.0 (0.1-1.5) mg/dL AST 33 (12-35) U/L ALT 17 (4-50) U/L Alkaline Phosphatase 69 (40-150) U/L Troponin I 0.02 (0.01-0.04) ng/mL Total Protein 7.9 (6.0-8.3) g/dL Albumin 4.4 (3.3-5.0) g/dL Discharge Plan Discharge Clinical Impression: Pneumothorax Patient Disposition: Xfer Other Discharge Location: [facility] Condition: Stable Activity Level: Other Discharge Diet: Other Prescriptions: No Action albuterol sulfate 90 mcg/actuation HFA aerosol inhaler 2 inh inhalation Q4-6H PRN (Reason: shortness of breath or wheezing) Qty: 6.7 12RF (DME) Home Oxygen Misc See Rx Instructions .Route Qty: 1 0RF Rx Instructions: As directed Grazyna Ellipta 100-62.5-25 mcg blister with device 1 inh inhalation DAILY Follow Up/Referrals: Rohan Saldaña MD [Primary Care Provider] - Stand Alone Forms: [facility] Info Instructions
[2023-04-15 04:16] LABS: Basophils Percent Auto 0.6 % (0.0-3.0); Eosinophils Percent Auto 5.7 % (0.0-7.0); Hematocrit 44.1 % (37.0-53.0); Immature Granulocytes Pct Auto 0.9 %; Lymphocytes Percent Auto 28.8 % (20-44); Mean Corpuscular HGB Conc 32 gm/dL (32-36); Mean Corpuscular Hemoglobin 29 pg (26-34); Mean Corpuscular Volume 90 fL (80-100); Monocytes Percent Auto 11.7 % (0.0-11.0); Neutrophils Percent Auto 52.3 % (42.0-72.0); Platelet Count* 433 K/uL (140-440); RDW Coefficient of Variation % 12.3 % (11.5-15.5); White Blood Count* 15.71 K/uL (4.50-11.00)
[2023-04-15 04:18] LABS: PO2 VBG 61.2 mmHG (25-47)
[2023-04-15 04:27] LABS: Albumin* 4.4 g/dL (3.3-5.0); Chloride* 96 mmol/L (96-114); Potassium* 4.6 mmol/L (3.6-5.1); Sodium* 138 mmol/L (135-149)
[2023-04-15 04:28] LABS: Slide Review Reflex No
[2023-04-15 04:29] LABS: Aspartate Amino Transferase* 33 U/L (12-35); Carbon Dioxide* 36 mmol/L (20-32); Creatinine* 0.7 mg/dL (0.5-1.5); Estimated Glomerular Filt Rate 110 ml/min; Total Protein* 7.9 g/dL (6.0-8.3)
[2023-04-15 04:30] LABS: Alanine Aminotransferase* 17 U/L (4-50); Alkaline Phosphatase* 69 U/L (40-150); Blood Urea Nitrogen* 15 mg/dL (7-30); Calcium* 8.8 mg/dL (8.4-10.6); Glucose* 214 mg/dL (60-115); Magnesium* 1.9 mg/dL (1.5-2.6)
[2023-04-15] MEDS: MORPHINE 2 MG/ML inj IVP (04:30)
[2023-04-15 04:31] LABS: PCO2 VBG > 98 mmHG (40-50); pH VBG 7.142 (7.32-7.43)
[2023-04-15 04:42] LABS: Troponin I* 0.02 ng/mL (0.01-0.04)
--- NOTE | 2023-04-15 05:12 | CRLHL7_ITS ---
For Patients: As a result of the Century Cures Act, medical imaging exams and procedure reports are released immediately into your electronic medical record. You may view this report before your referring provider. If you have questions, please contact your health care provider. INDICATION: Follow-up status post pleural drain placement COMPARISON: Earlier the same day most recently 4:28 a.m.. This study is labelled as 5:20 a.m. TECHNIQUE: Single-view of the left hemithorax and half of the right hemithorax was acquired. FINDINGS: TUBES AND LINES: Small bore pleural drain overlying the left lateral apical region HEART AND MEDIASTINUM: The heart size is normal. The mediastinal contour appears normal for patient age. LUNGS AND PLEURAL SPACES: Persistent but improved pneumothorax. The component that persists is at the left costophrenic angle and overlying the apex. This is small to moderate. No pleural effusion. Background of probable COPD and linear areas of left-sided atelectasis. OSSEOUS STRUCTURES: Age-appropriate appearance. No acute focal finding. IMPRESSION: 1. Small bore pleural drain overlying the left lateral apical region. 2. Persistent but improved left pneumothorax. Pneumothorax persists is small to moderate. No evidence of tension Dictated by Carl Castro MD @ 04/15/2023 6:02:34 AM (Electronically Signed)
--- NOTE | 2023-04-15 06:04 | ED.NURSE ---
pt requested family to be contacted, only number for mother joan listed, updated her via phone.
--- NOTE | 2023-04-15 06:12 | ED.NURSE ---
pt presented to ED via [facility] ems, pt wob significant, 88% on mask with neb running 15lpm, clammy, pale. pt changed to bipap to assist with WOB and oxygenation, pt tolerated well stating he felt better, oxygenation increased to 100%, WOB decreased, pt stated he felt better but still some dyspnea, still clammy. cxr performed, large pneumo verified by MD Mcrae, bipap removed, hiflow initiated instead. pt tolerated well. MD placed chest needle insertion, pt had relief with face returning color, pt holding up own head and stating he feels his breathing is greatly improved, 100% oxygenation on 35%fio, 25lpm. MD placed chest tube, water seal to suction set up prior to ems transport to [facility].
== END 2023-04-15 05:45 | disposition other institution (70) ==
PROVIDERS: Emergency Provider Internal Medicine; PCP Family Medicine
DX: J93.9 Pneumothorax, unspecified (principal)
CPT/HCPCS: 32551; 36415; 36600; 71045; 80053; 82803; 83735; 84484; 85025; 93005; 94660; 94761; 96374; 99284; 99291; A0425; A0429; J2270

== ENCOUNTER 2023-04-15 05:10 | Outpatient (CLI) | payer MEDICARE, SELFPAY | END 2023-04-15 05:11 | disposition home or self-care (01) | LOC: AMB 04-19 09:37 | PROVIDERS: PCP Family Medicine; Visit Provider Internal Medicine | DX: J18.9 Pneumonia, unspecified organism (principal); R06.09 Other forms of dyspnea | CPT/HCPCS: A0425; A0429; A0434 ==

== ENCOUNTER 2023-07-07 19:47 | Emergency (ER) | payer MEDICARE, SELFPAY ==
[2023-07-07 19:59] VITALS: BP 187/114; PULSE 109; RESP 24; TEMP 36.7; O2SAT 99; BMI 23.1
--- NOTE | 2023-07-07 20:01 | CRLHL7_ITS ---
For Patients: As a result of the Century Cures Act, medical imaging exams and procedure reports are released immediately into your electronic medical record. You may view this report before your referring provider. If you have questions, please contact your health care provider. INDICATION: Shortness of breath. TECHNIQUE: Chest 1 view. COMPARISON: 04/15/2023. FINDINGS: Cardiovascular and mediastinum: Heart size and vasculature are normal in caliber and appearance. Lungs and pleural spaces: Lungs are clear. No sign of infiltrate or mass. No sign of pleural effusion. No pneumothorax. Bones and soft tissues: No significant findings. IMPRESSION: No acute pulmonary process. Dictated by Jeremiah Cherry MD @ 07/07/2023 9:21:35 PM (Electronically Signed)
[2023-07-07 20:15] LABS: Eosinophils Percent Auto 6.7 % (0.0-7.0); Hematocrit 43.5 % (37.0-53.0); Hemoglobin* 13.9 gm/dL (13.5-17.5); Lymphocytes Percent Auto 23.1 % (20-44); Mean Corpuscular HGB Conc 32 gm/dL (32-36); Mean Corpuscular Hemoglobin 28 pg (26-34); Mean Corpuscular Volume 88 fL (80-100); Monocytes Percent Auto 8.2 % (0.0-11.0); Neutrophils Percent Auto 60.8 % (42.0-72.0); Platelet Count* 323 K/uL (140-440); RDW Coefficient of Variation % 12.5 % (11.5-15.5); Red Blood Count 4.95 m/uL (4.30-5.90); White Blood Count* 9.67 K/uL (4.50-11.00)
[2023-07-07 20:16] LABS: Basophils Absolute Auto 0.07 K/uL (0.00-0.30); Basophils Percent Auto 0.7 % (0.0-3.0); Eosinophils Absolute Auto 0.65 K/uL (0.00-0.50); Immature Granulocytes Abs Auto 0.05 K/uL (0.00-0.30); Immature Granulocytes Pct Auto 0.5 %; Lymphocytes Absolute Auto 2.23 K/uL (0.90-2.90); Neutrophils Absolute Auto 5.88 K/uL (1.7-7.0)
[2023-07-07 20:18] LABS: Slide Review Reflex No
[2023-07-07 20:19] LABS: Albumin* 4.5 g/dL (3.3-5.0); Chloride* 99 mmol/L (96-114); Potassium* 3.9 mmol/L (3.6-5.1); Sodium* 140 mmol/L (135-149)
[2023-07-07 20:21] LABS: Creatinine* 0.7 mg/dL (0.5-1.5); Est. Creatinine Clearance* 133.11; Estimated Glomerular Filt Rate 110 ml/min
[2023-07-07 20:22] LABS: Alanine Aminotransferase* 18 U/L (4-50); Alkaline Phosphatase* 89 U/L (40-150); Anion Gap 4 mEq/L (7-15); Aspartate Amino Transferase* 26 U/L (12-35); Bilirubin Total* 0.4 mg/dL (0.1-1.5); Blood Urea Nitrogen* 17 mg/dL (7-30); Calcium* 9.4 mg/dL (8.4-10.6); Carbon Dioxide* 37 mmol/L (20-32); Glucose* 113 mg/dL (60-115); Total Protein* 7.8 g/dL (6.0-8.3)
--- NOTE | 2023-07-07 20:22 | ED_ITS ---
HPI - General Adult General Chief complaint: Chest Pain Stated complaint: Chest Pain Time Seen by Provider: 07/07/23 19:56 History of Present Illness HPI narrative: Patient is a 53-year-old gentleman with profound COPD who approximately 2 months ago came in with a pneumothorax. He is on 4 L of oxygen at home an approximate 3 hours ago developed midsternal chest pain without radiation. He has had no fevers no chills no night sweats his breathing is stable. He has had no cough no sputum production no shortness of breath. Patient symptoms have resolved. His pulse was in the 115 range at home and he came in for further evaluation. Initial EKG shows sinus rhythm no acute ST or T-wave changes. Related Data Home Medications Medication Instructions Recorded Confirmed fluticasone fur. 100 mcg-umeclid 1 inh inhalation DAILY 09/02/22 05/08/23 62.5 mcg-vilant 25 mcg inhalat.powder (Trelegy Ellipta) Previous Rx's Medication Instructions Recorded Home Oxygen #1 ea 09/07/22 albuterol sulfate 90 mcg/actuation 2 inh inhalation Q4-6H PRN 10/11/22 aerosol inhaler shortness of breath or wheezing #6.7 grams Allergies Allergy/AdvReac Type Severity Reaction Status Date / Time No Known Drug Allergies Allergy Verified 05/08/23 13:09 Review of Systems Status of ROS: Reports: 10 or more systems reviewed and unremarkable except as noted in History and below [facility] Medical History Encounter for pre-operative examination ?Z01.818 - Encounter for other preprocedural examination (ICD-10) Recurrent deep vein thrombosis (DVT) ?I82.409 - Acute embolism and thrombosis of unspecified deep veins of unspecified lower extremity (ICD-10) Oxygen dependent ?Z99.81 - Dependence on supplemental oxygen (ICD-10) Former smoker ?Z87.891 - Personal history of nicotine dependence (ICD-10) COPD (chronic obstructive pulmonary disease) ?J44.9 - Chronic obstructive pulmonary disease, unspecified (ICD-10) Acute and chronic respiratory failure with hypoxia ?J96.21 - Acute and chronic respiratory failure with hypoxia (ICD-10) Surgical History H/O lumbar discectomy ?Z98.890 - Other specified postprocedural states (ICD-10) Social History Highest level of school completed/degree received: 12th grade, no diploma Smoking Status: Former smoker What tobacco products do you use: cigarettes Smoking quit date/years: <= 15 years ago Do you use any of these nicotine containing products: None Second hand tobacco smoke exposure: No How often do you have a drink containing alcohol: never AUDIT-C Alcohol total score: 0 Non-prescribed substance use: denies use Caffeine: Yes Little interest or pleasure in doing things: not at all Feeling down, depressed, or hopeless: not at all service: No Exam Narrative: Exam Narrative: EXAM GENERAL: Patient appears cachectic and emaciated breathing oxygen via nasal cannula. EYES: No scleral icterus. LYMPH: No supraclavicular or cervical lymphadenopathy. SKIN: Visible skin seen during exam normal or with benign process only. EXT: No dependent lower extremity pedal edema. HEART: Regular rate and rhythm with no murmurs, rubs, or gallops. LUNGS: Clear to auscultation bilaterally with no crackles or wheezes. ABD: Soft, non tender, non distended. PSYCH: Good eye contact, speech is not pressured. Const: Vital Signs, click to edit/add: Vital Signs - 24 hr 07/07/23 19:59 Temperature 98.0 F Pulse Rate [Right Pulse Oximeter] 109 H Respiratory Rate 24 Blood Pressure [Ri ght Upper Arm] 187/114 H Pulse Oximetry 99 Oxygen Delivery Me thod Nasal Cannula Oxygen Flow Rate 4 Course Course ED Course: Patient seen examined. Chest x-ray EKG troponin D-dimer CBC CMP ordered. Vital Signs Vital signs: Initial Vital Signs Temperature 98.0 F 07/07/23 19:59 Temperature Source Temporal Artery Scan 07/07/23 19:59 Pulse Rate 109 H 07/07/23 19:59 Respiratory Rate 24 07/07/23 19:59 Blood Pressure 187/114 H 07/07/23 19:59 Blood Pressure Mean 138 H 07/07/23 19:59 Blood Pressure Position Supine 07/07/23 19:59 Pulse Oximetry 99 07/07/23 19:59 Oxygen Delivery Method Nasal Cannula 07/07/23 19:59 Oxygen Flow Rate 4 07/07/23 19:59 Vital Signs Temperature 98.0 F 07/07/23 19:59 Pulse Rate 109 H 07/07/23 19:59 Respiratory Rate 24 07/07/23 19:59 Blood Pressure 187/114 H 07/07/23 19:59 Pulse Oximetry 99 07/07/23 19:59 Oxygen Delivery Method Nasal Cannula 07/07/23 19:59 Oxygen Flow Rate 4 07/07/23 19:59 Temperature 98.0 F 07/07/23 19:59 Pulse Rate 109 H 07/07/23 19:59 Respiratory Rate 24 07/07/23 19:59 Blood Pressure 187/114 H 07/07/23 19:59 Pulse Oximetry 99 07/07/23 19:59 Oxygen Delivery Method Nasal Cannula 07/07/23 19:59 Oxygen Flow Rate 4 07/07/23 19:59 Medical Decision Making MDM Narrative Medical decision making narrative: Patient is a 53-year-old gentleman with COPD who presented with chest pain of 3 hours duration. He had negative EKG negative chest x-ray negative troponin x2 electrolytes were unremarkable as was CBC. D-dimer was negative. His symptoms have resolved spontaneously. His pulse is now in the 80-90 range. He feels well would like to go home with close outpatient follow-up. Differential Diagnosis Differential Diagnosis: Unstable angina acute myocardial infarction pneumothorax COPD exacerbation Lab Data Labs: Lab Results 07/07/23 07/07/23 Range/Units 20:00 21:45 WBC 9.67 (4.50-11.00) K/uL RBC 4.95 (4.30-5.90) m/uL Hgb 13.9 (13.5-17.5) gm/dL Hct 43.5 (37.0-53.0) % MCV 88 (80-100) fL MCH 28 (26-34) pg MCHC 32 (32-36) gm/dL RDW Coeff of Edin 12.5 (11.5-15.5) % Plt Count 323 (140-440) K/uL Neut % (Auto) 60.8 (42.0-72.0) % Lymph % (Auto) 23.1 (20-44) % [place] % (Auto) 8.2 (0.0-11.0) % Eos % (Auto) 6.7 (0.0-7.0) % Baso % (Auto) 0.7 (0.0-3.0) % Neut # (Auto) 5.88 (1.7-7.0) K/uL Lymph # (Auto) 2.23 (0.90-2.90) K/uL [place] # (Auto) 0.80 (0.00-0.90) K/UL Eos # (Auto) 0.65 H (0.00-0.50) K/uL Baso # (Auto) 0.07 (0.00-0.30) K/uL Abs Immat Gran (auto) 0.05 (0.00-0.30) K/uL Imm/Tot Granulo (auto) 0.5 % D-Dimer Quant (PE/DVT) 0.27 (0.00-0.50) ug/ml Sodium 140 (135-149) mmol/L Potassium 3.9 (3.6-5.1) mmol/L Chloride 99 (96-114) mmol/L Carbon Dioxide 37 H (20-32) mmol/L Anion Gap 4 L (7-15) mEq/L BUN 17 (7-30) mg/dL Creatinine 0.7 (0.5-1.5) mg/dL Estimated Creat Clear 133.11 Estimated GFR 110 ml/min Glucose 113 (60-115) mg/dL Calcium 9.4 (8.4-10.6) mg/dL Total Bilirubin 0.4 (0.1-1.5) mg/dL AST 26 (12-35) U/L ALT 18 (4-50) U/L Alkaline Phosphatase 89 (40-150) U/L Troponin I < 0.01 L < 0.01 L (0.01-0.04) ng/mL Total Protein 7.8 (6.0-8.3) g/dL Albumin 4.5 (3.3-5.0) g/dL Discharge Plan Discharge Clinical Impression: Chest pain Patient Disposition: Home, Self-Care Condition: Stable Instructions: Chest Pain (ED) Additional Instructions: Continue current medications Follow-up with your doctor as needed. Activity Level: No Restrictions Discharge Diet: Regular Prescriptions: No Action albuterol sulfate 90 mcg/actuation HFA aerosol inhaler 2 inh inhalation Q4-6H PRN (Reason: shortness of breath or wheezing) Qty: 6.7 12RF (DME) Home Oxygen Misc See Rx Instructions .Route Qty: 1 0RF Rx Instructions: As directed Trelegy Ellipta 100-62.5-25 mcg blister with device 1 inh inhalation DAILY Follow Up/Referrals: Rohan Saldaña MD [Primary Care Provider] - Stand Alone Forms: [facility] Info Instructions
[2023-07-07 20:24] LABS: D Dimer Quantitative* 0.27 ug/ml (0.00-0.50)
[2023-07-07 20:35] LABS: Troponin I* < 0.01 ng/mL (0.01-0.04)
[2023-07-07 22:18] LABS: Troponin I* < 0.01 ng/mL (0.01-0.04)
== END 2023-07-07 22:29 | disposition home or self-care (01) ==
PROVIDERS: Emergency Provider Internal Medicine; PCP Family Medicine
DX: R07.9 Chest pain, unspecified (principal)
CPT/HCPCS: 36415; 71045; 80053; 84484; 85025; 85379; 93005; 99283; 99284; 99285

== ENCOUNTER 2023-09-28 09:51 | Inpatient (IN) | payer MEDICARE, OTHER, SELFPAY ==
[2023-09-28] VITALS (41 sets, daily range): BP systolic 94–150; BP diastolic 68–103; PULSE 98–135; RESP 16–24; TEMP 36.7–38.6; O2SAT 92–100; BMI 23.9; BMI 22.9
--- OUTSIDE RECORDS SUMMARY | 2023-09-28 10:32 | XMS_ITS | Clinical Summary ---
Author Name Unknown Organization [facility] Address [address] [place] [id number] Care Team Providers Care Quarantine Officer Name Role Phone Clinic, No Primary Unavailable Unavailable Rohan Saldaña MD Primary Care Provider Allergies No known active allergies Medications Medication Sig Dispensed Refills Start Date End Date Status fluticasone-umeclidi n-vilanter 100-62.5-25 mcg Inhl DsDv Inhale 1 Inhalation once daily. 0 Active albuterol HFA (PROVENTIL;VENTOLIN HFA) 90 mcg/actuation Inhl inhaler Inhale 2 puffs every 4 (four) hours as needed. 0 Active acetaminophen (TYLENOL) 500 mg oral tablet Take 1-2 tablets (500-1,000 mg) by mouth every 6 (six) hours as needed for fever or pain. 0 04/28/2023 Active albuterol-ipratropiu m, conc: 3-0.5mg/3mL, (DUO-NEB) Inhl nebulizer solution Nebulize 3 mL every 6 (six) hours as needed. 90 mL 0 04/28/2023 Active Active Problems Problem Noted Date Diagnosed Date Spontaneous pneumothorax 04/15/2023 Social History Tobacco Use Types Packs/Day Years Used Date Smoking Tobacco: Former Cigarettes 30 Smokeless Tobacco: Never Tobacco Cessation:Counseling Given: No Comments:Stopping off/of for the last 6 months Alcohol Use Standard Drinks/Week Comments Not Currently 0 (1 standard drink = 0.6 oz pur e alcohol) Sex and Gender Information Value Date Recorded Sex Assigned at Not on file Gender Identity Not on file Sexual Orientation Not on file Last Filed Vital Signs Vital Sign Reading Time Taken Comments Blood Pressure 128/70 05/15/2023 12:55 PM CDT Pulse 82 05/15/2023 12:55 PM CDT Temperature 36.7 ??C (98 ??F) 04/28/2023 1:07 PM CDT Respiratory Rate 18 04/28/2023 1:07 PM CDT Oxygen Saturation 94% 05/15/2023 12:55 PM CDT Inhaled Oxygen Concentration - - Weight 75 kg (165 lb 4.8 oz) 05/15/2023 12:55 PM CDT Height 182.9 cm (6') 05/15/2023 12:55 PM CDT Body Mass Index 22.42 05/15/2023 12:55 PM CDT Plan of Treatment Health Maintenance Due Date Last Done Comments Colonoscopy 1970 Hepatitis C Screening 1970 Lipid Screening 1970 Medicare Wellness Visit 1970 Anxiety Screening (HALLIE-2) 1971 Depression Assessment (PHQ-2) 1971 Zoster Vaccine (1 of 2) 01/05/2020 COVID-19 Vaccine (3 - season) 05/19/202306/2021, 12/05/2020 Influenza Vaccine (#1) 2023 Pneumococcal <65 (2 of 2 - PCV) 10/11/2023 3 Yearly Review of HCD 04/14/2024 04/15/2023 Adult Tetanus Booster 06/04/2029 06/04/2019, 005 Medical Devices Implanted Type Area Apprentice Photographer Device Identifier Shelf Expiration Date Model / Serial / Lot Cath Apd Flexima 8fr 25cm - [id number] Implanted:Qty: 1 on 04/17/2023 by Rohan Quintero MD at [facility] [id number] 10/14/2023 [id number] / [id number] / [id number] Advance Directives For more information, please contact: [phone] Latest Code Status on File Code Status Date Activated Date Inactivated Comments Full Code 04/28/2023 10:19 AM Question Answer Comments How was code status determined? Patient Code Status History Code Status Date Activated Date Inactivated Comments Full Code 04/15/2023 3:52 PM 04/28/2023 10:19 AM Question Answer Comments How was code status determined? Patient Full Code 04/15/2023 3:52 PM 04/15/2023 3:52 PM Question Answer Comments How was code status determined? Patient Full Code 04/15/2023 10:13 AM 04/15/2023 3:52 PM Question Answer Comments How was code status determined? Physician Determ [facility] Care Teams Quarantine Officer Relationship Specialty Start Date End Date Clinic, No Primary PCP - Primary Care Clinic 04/15/23 Rohan Saldaña MD [address] [place] [address] PCP - General 04/17/23
--- OUTSIDE RECORDS SUMMARY | 2023-09-28 10:32 | XMS_ITS | Encounter Summary ---
Author Name Unknown Organization [facility] Address [address] [place] [address] Care Team Providers Care Industrial Truck Mechanic Name Role Phone Rohan Saldaña MD Primary Care Provider [phone] Encounter Details Date Type Department Care Team (Latest Contact Info) Description 02/15/2023 Travel Social History Tobacco Use Types Packs/Day Years Used Date Smoking Tobacco: Never Assessed Sex and Gender Information Value Date Recorded Sex Assigned at Not on file Gender Identity Not on file Sexual Orientation Not on file COVID-19 Exposure Response Date Recorded In the last 10 days, have yo u been in contact with someone who was confirmed or suspected to have Coronavirus/COVID-19? No / Unsure 02/15/2023 2:26 PM CDT documented as of this encounter Plan of Treatment Not on file documented as of this encounter Visit Diagnoses Not on filedocumented in this encounter Care Teams Industrial Truck Mechanic Relationship Specialty Start Date End Date Rohan Saldaña MD PCP - General Family Medicine 01/20/23 documented as of this encounter
--- OUTSIDE RECORDS SUMMARY | 2023-09-28 10:32 | XMS_ITS | Encounter Summary ---
Author Name Unknown Organization [address] [address] Care Team Providers Care Medical Appointment Clerk Name Role Phone Unavailable Primary Care Provider Unavailabl e Reason for Referral * Rehab Therapy Cardiac Therapy (Routine) - Closed Specialty Diagnoses / Procedures Referred By Contmarisa t Referred To Contact CARDIAC REHAB Diagnoses Stage 4 very severe COPD by GOLD classification (H) [address] [address] Referral ID Status Reason Start Date Expiration Date Visits Re quested Visits Authorized [id number] Closed 01/17/2023 09/17/2023 72 72 Question Answer Reason for Referral COPD - Very Severe Preferred Location: [facility] Scheduling Instructions: If you have not heard from the scheduling office within 2 business days, please call [phone] for [employer], for [employer] and [phone] for [employer]. Additional Information: Oxygen to be applied as needed for desaturation < 88% at rest and with exertion (below 90% if diagnosis of pulmonary hypertension). Comments Please be aware that coverage of these services is subject to the terms and limitations of your health insurance plan. Call member services at your health plan with any benefit or coverage questions. If you have not heard from the scheduling office within 2 business days, please call [phone] for [employer], for [employer] and [phone] for [employer]. Encounter Details Date Type Department Care Team (Latest Contact Info) Description 12/30/2022 Transcribe Orders GENERIC EXTERNAL DATA DEPARTMENT Moose Garcia MD [facility] [address] [address] Stage 4 very severe COPD by GOLD classification (H) (Primary Dx) Social History Tobacco Use Types Packs/Day Years Used Date Smoking Tobacco: Never Assessed Sex and Gender Information Value Date Recorded Sex Assigned at Not on file Gender Identity Not on file Sexual Orientation Not on file documented as of this encounter Plan of Treatment Scheduled Referrals Name Type Priority Associated Diagnoses Orde r Schedule Pulmonary Rehab Referral Referral Routine Stage 4 very severe COPD by GOLD classification (H) Ordered: 12/30/2022 documented as of this encounter Visit Diagnoses Diagnosis Stage 4 very severe COPD by GOLD classification (H)- Primary documented in this encounter
--- OUTSIDE RECORDS SUMMARY | 2023-09-28 10:32 | XMS_ITS | Referral Summary ---
Author Name Unknown Organization [facility] Address [address] [place] [address] Care Team Providers Care Life Skills Consultant Name Role Phone Rohan Saldaña MD Primary Care Provider [phone] Social History Tobacco Use Types Packs/Day Years Used Date Smoking Tobacco: Never Assessed Adolescent Education Answer Date Record ed Getting School Help Needed Not on file 06/24 Sex and Gender Information Value Date Recorded Sex Assigned at Not on file Gender Identity Not on file Sexual Orientation Not on file Plan of Treatment Not on file Care Teams Life Skills Consultant Relationship Specialty Start Date End Date Rohan Saldaña MD PCP - General Family Medicine 01/20/23
--- OUTSIDE RECORDS SUMMARY | 2023-09-28 10:32 | XMS_ITS | Clinical Summary ---
Author Name Unknown Organization [facility] Address [address] [place] [address] Care Team Providers Care Breast Trimmer Name Role Phone Rohan Saldaña MD Primary Care Provider [phone] Social History Tobacco Use Types Packs/Day Years Used Date Smoking Tobacco: Never Assessed Adolescent Education Answer Date Record ed Getting School Help Needed Not on file 06/24 Sex and Gender Information Value Date Recorded Sex Assigned at Not on file Gender Identity Not on file Sexual Orientation Not on file Plan of Treatment Health Maintenance Due Date Last Done Comments ADVANCE CARE PLANNING 1970 ANNUAL REVIEW OF HM ORDERS 1970 COPD ACTION PLAN 1970 CT COLONOGRAPHY 1970 FIT 1970 FLEX SIG 1970 HEPATITIS B IMMUNIZATION (1 of 3 - 3-dose series) 1970 SPIROMETRY 1970 sDNA (Cologuard) 1970 COLONOSCOPY 01/05/1980 COLORECTAL CANCER SCREENING 01/05/1980 HIV SCREENING 1985 HEPATITIS C SCREENING 01/05/1988 MEDICARE ANNUAL WELLNESS VISIT 01/05/1988 LIPID 2005 ZOSTER IMMUNIZATION (1 of 2) 01/05/2020 COVID-19 Vaccine (3 - 2022-2 4 season) 2023 12/26/2020, 12/05/2020 INFLUENZA VACCINE (#1) 2023 PHQ-2 (once per calendar year) 2023 Pneumococcal Vaccine: Pediatrics (0 to 5 Years) and At-Risk Patients (6 to 64 Years) (2 of 2 - PCV) 10/11/2023 10/11/2022 DTAP/TDAP/TD IMMUNIZATION (2 - Td or Tdap) 06/04/2029 06/04/2019, 07/05/2005 HPV IMMUNIZATION Aged Out No longer e ligible based on patient's age to complete this topic IPV IMMUNIZATION Aged Out No longer e ligible based on patient's age to complete this topic MENINGITIS IMMUNIZATION Aged Out No l onger eligible based on patient's age to complete this topic RSV MONOCLONAL ANTIBODY Aged Out No l onger eligible based on patient's age to complete this topic Care Teams Breast Trimmer Relationship Specialty Start Date End Date Rohan Saldaña MD PCP - General Family Medicine 01/20/23
--- OUTSIDE RECORDS SUMMARY | 2023-09-28 10:32 | XMS_ITS | Encounter Summary ---
Author Name Unknown Organization [address] [address] Care Team Providers Care Marketing Communication Manager Name Role Phone Rohan Saldaña MD Primary Care Provider [phone] Reason for Visit * Rehab Therapy Cardiac Therapy (Routine) - Closed Specialty Diagnoses / Procedures Referred By Contmarisa t Referred To Contact CARDIAC REHAB Diagnoses Stage 4 very severe COPD by GOLD classification (H) [address] [address] Referral ID Status Reason Start Date Expiration Date Visits Re quested Visits Authorized [id number] Closed 01/17/2023 09/17/2023 72 72 Encounter Details Date Type Department Care Team (Latest Contact Info) Description 02/15/2023 2:33 PM CDT - 02/15/2023 11:59 PM CDT Hospital Encounter [facility] Cardiac and Pulmonary Rehabilitation [address] [place] [address] Moose Garcia MD [facility] [address] [place] [address] 2, Rh Pulmonary Rehab Discharge Disposition: Home or Self Care Social History Tobacco Use Types Packs/Day Years [...] PM CDT documented as of this encounter Progress Notes * Thelma Salazar EP - 02/15/2023 3:00 PM CDTSummary: pulmonary rehab 02/15 Pt was here today for pulmonary rehab eval. But stated he does not want to get started until he finds out the insurance coverage for DC. documented in this encounter Plan of Treatment Not on file documented as of this encounter Visit Diagnoses Not on filedocumented in this encounter Care Teams Marketing Communication Manager Relationship Specialty Start Date End Date Rohan Saldaña MD PCP - General Family Medicine 01/20/23 documented as of this encounter
--- OUTSIDE RECORDS SUMMARY | 2023-09-28 10:33 | XMS_ITS | Encounter Summary ---
Author Name Unknown Organization [facility] Address [address] [place] [address] Care Team Providers Care Gantry Rigger Name Role Phone Clinic, No Primary Unavailable Unavailable Rohan Saldaña MD Primary Care Provider [phone] Encounter Details Date Type Department Care Team (Latest Contact Info) Description 05/15/2023 Travel Social History Tobacco Use Types Packs/Day Years Used Date Smoking Tobacco: Former Cigarettes 30 Smokeless Tobacco: Never Comments:Stopping off/of for the last 6 months [...] suspected to have Coronavirus/COVID-19? No / Unsure 04/15/2023 10:41 PM CDT documented as of this encounter Plan of Treatment Not on file documented as of this encounter Visit Diagnoses Not on filedocumented in this encounter Care Teams Gantry Rigger Relationship Specialty Start Date End Date Clinic, No Primary PCP - Primary Care Clinic 04/15/23 Rohan Saldaña MD [address] [place] [address] PCP - General 04/17/23 documented as of this encounter
--- OUTSIDE RECORDS SUMMARY | 2023-09-28 10:33 | XMS_ITS | Encounter Summary ---
Author Name Unknown Organization [facility] Address [address] [place] [address] Care Team Providers Care Admitting Office Escort Name Role Phone Clinic, No Primary Unavailable Unavailable Rohan Saldaña MD Primary Care Provider [phone] Reason for Referral * (Routine) - Open Specialty Diagnoses / Procedures Referred By Contac t Referred To Contact Diagnoses Spontaneous tension pneumothorax Procedures XR CHEST PA & LAT Renée Sky APRN, ASW SPECIALIST [address] [facility] [address] [place] [address] Referral ID Status Reason Start Date Expiration Date Visits Re quested Visits Authorized [id number] Open 05/15/2023 1 1 Reason for Visit * (Routine) - Open Specialty Diagnoses / Procedures Referred By Contac t Referred To Contact Diagnoses Spontaneous tension pneumothorax Procedures XR CHEST PA & LAT Renée Sky APRN, ASW SPECIALIST [address] [facility] [address] [place] [address] Referral ID Status Reason Start Date Expiration Date Visits Re quested Visits Authorized [id number] Open 05/15/2023 1 1 Encounter Details Date Type Department Care Team (Latest Contact Info) Description 05/15/2023 12:10 PM CDT - 05/15/2023 11:59 PM CDT Hospital Encounter [facility] [address] [place] [address] Discharge Disposition: Returning Home/Self Care Social History Tobacco Use Types Packs/Day [...] PM CDT documented as of this encounter Medications at Time of Discharge Medication Sig Dispensed Refills Start Date End Date acetaminophen (TYLENOL) 500 mg oral tablet Take 1-2 tablets (500-1,000 mg) by mouth every 6 (six) hours as needed for fever or pain. 0 04/28/2023 albuterol HFA (PROVENTIL;VENTOLIN HFA) 90 mcg/actuation Inhl inhaler Inhale 2 puffs every 4 (four) hours as needed. 0 albuterol-ipratropium, conc: 3-0.5mg/3mL, (DUO-NEB) Inhl nebulizer solution Nebulize 3 mL every 6 (six) hours as needed. 90 mL 0 04/28/2023 gyadvduyhjn-leszvjysr-sa lanter 100-62.5-25 mcg Inhl DsDv Inhale 1 Inhalation once daily. 0 documented as of this encounter Plan of Treatment Not on file documented as of this encounter Procedures Procedure Name Priority Date/Time Associated Diagnosis Comments XR CHEST PA & LAT Routine 05/15/2023 12: 15 PM CDT Spontaneous tension pneumothorax documented in this encounter Results * XR CHEST PA & LAT (05/15/2023 12:15 PM CDT) Anatomical Region Laterality Modality Chest Computed Radiogr aphy 05/15/2023 1:28 PM CDT Impressions 05/15/2023 1:30 PM CDT IMPRESSION: No significant residual left-sided pneumothorax. Decreased left pleural effusion and left basilar opacities. REPORT SIGNED BY ARTURO CASTRO M.D. Narrative 05/15/2023 1:30 PM CDT EXAM: XR CHEST PA & LAT DATE: 05/15/2023 12:13 PM CLINICAL DATA: CHEST TUBE REMOVAL. COMPARISON: 04/27/2023. FINDINGS: No significant left-sided pneumothorax. Decrease in left pleural effusion and left basilar opacities. No acute abnormality of the right lung. Heart size and mediastinal contours are normal. Hyperinflation with changes of emphysema. Procedure Note Arturo Castro MD - 05/15/2023 EXAM: XR CHEST PA & LAT DATE: 05/15/2023 12:13 PM CLINICAL DATA: CHEST TUBE REMOVAL. COMPARISON: 04/27/2023. FINDINGS: No significant left-sided pneumothorax. Decrease in left pleural effusionand left basilar opacities. No acute abnormality of the right lung. Heart size and mediastinalcontours are normal. Hyperinflation with changes of emphysema. IMPRESSION IMPRESSION: No significant residual left-sided pneumothorax. Decreased left pleuraleffusion and left basilar opacities. REPORT SIGNED BY ARTURO CASTRO M.D. Renée Sky COMPONENT ASSEMBLER SUPERVISOR, ASW SPECIALIST XRAY ORDERABLE documented in this encounter Visit Diagnoses Diagnosis Spontaneous tension pneumothorax documented in this encounter Care Teams Admitting Office Escort Relationship Specialty Start Date End Date Clinic, No Primary PCP - Primary Care Clinic 04/15/23 Rohan Saldaña MD [address] [place] [address] PCP - General 04/17/23 documented as of this encounter
--- OUTSIDE RECORDS SUMMARY | 2023-09-28 10:33 | XMS_ITS | Encounter Summary ---
Author Name Unknown Organization [facility] Address [address] [place] [address] Care Team Providers Care Waterproofing Supervisor Name Role Phone Clinic, No Primary Unavailable Unavailable Rohan Saldaña MD Primary Care Provider [phone] Reason for Visit * Reason Comments Post op check Encounter Details Date Type Department Care Team (Late st Contact Info) Description 05/15/2023 1:30 PM CDT Office Visit [facility] [address] [place] [address] [address] [place], [place] [address] August Tarango MD [address] [place] [address] [address] [place], [place] [id number] Spontaneous pneumothorax (Primary Dx) Social History Tobacco Use Types [...] PM CDT documented as of this encounter Last Filed Vital Signs Vital Sign Reading Time Taken Comments Blood Pressure 128/70 05/15/2023 12:55 PM CDT Pulse 82 05/15/2023 12:55 PM CDT Temperature - - Respiratory Rate - - Oxygen Saturation 94% 05/15/2023 12:55 PM CDT Inhaled Oxygen Concentration - - Weight 75 kg (165 lb 4.8 oz) 05/15/2023 12:55 PM CDT Height 182.9 cm (6') 05/15/2023 12:55 PM CDT Body Mass Index 22.42 05/15/2023 12:55 PM CDT documented in this encounter Patient Instructions * Patient Instructions* Renée Sky APRN, CNP - 05/15/2023 1:30 PM CDT PLAN: 1. Continue wound care; wash with soap and water daily but no submerging under water in bath or pool until completely healed, showers are ok. Genntly scrub directly over wounds with clean cloth. Do not put any lotions or ointments over incisions. Watch for signs of infection (new fever, new redness, new drainage at incisions) and contact our office for concerns. 2. No driving for 1-2 weeks from surgery date as long as you no longer taking opioid pain medication and you feel safe. No lifting more than 10 pounds for 2 weeks from surgery, gradually increase activity as tolerated. 3. If you are still taking an opioid pain medication (oxycodone) gradually decrease how often you are taking it. Use acetaminophen (Tylenol) regularly instead. 4. Continue your other medication. 5. Follow with your pulmonology and primary care providers as planned. Any questions call [phone]. Our fax number is [phone] documented in this encounter Progress Notes * Renée Sky APRN, CNP - 05/15/2023 1:[address] SURGERY CLINIC VISIT NOTE 05/15/2023 S/p: Left VATS w/ Talc Pleurodesis S: Mr. Prasad follows up following recent procedure. He is doing well overall, incisional pain controlled without analgesics. Completed prednisone course and breathing overall remains stable. Stepsare more difficult, wipes him out, looking for a new place to live without steps but this is difficult. Also difficulty sleeping, always has. O: BP 128/70 Pulse 82 Ht 6' (1.829 m) Wt 75 kg (165 lb 4.8 oz) SpO2 94% BMI 22.42 kg/m?? NAD, AO Respirations regular, non-labored Incision sites clean and dry, no erythema/drainage. Areas with dry eschar. Lower extremities without edema. Imaging: CXR: Reviewed: IMPRESSION: No significant residual left-sided pneumothorax. Decreased left pleural effusion and left basilar opacities. A/P: 53yo with PMH of COPD on home oxygen who was admitted from OSH for Left tension pneumothorax with chest tube placed. Due to continuous air leak recommended/underwent talc pleurodesis 04/20/23. During admission treated for presumed pneumonia with ceftriaxone as well as COPD exacerbation with prednisone . -No medication changes at this time. -Continue wound care, monitor for signs infection -Follow-up with pulmonology and PCP as planned. -At this this point in time we no longer need to follow this patient, however, we will gladly see in the future if needed. Renée Sky APRN CNP/Dr. Tarango CV Surgery 05/15/2023 12:53 PM documented in this encounter Plan of Treatment Not on file documented as of this encounter Visit Diagnoses Diagnosis Spontaneous pneumothorax- Primary Other pneumothorax documented in this encounter Care Teams Waterproofing Supervisor Relationship Specialty Start Date End Date Clinic, No Primary PCP - Primary Care Clinic 04/15/23 Rohan Saldaña MD [address] [place] [address] PCP - General 04/17/23 documented as of this encounter
--- OUTSIDE RECORDS SUMMARY | 2023-09-28 10:33 | XMS_ITS | Referral Summary ---
Author Name Unknown Organization [facility] Address [address] [place] [address] Care Team Providers Care Early Years Teacher Name Role Phone Clinic, No Primary Unavailable Unavailable Rohan Saldaña MD Primary Care Provider [phone] Allergies No known active allergies Medications Medication [...] 05/15/2023 12:55 PM CDT Plan of Treatment Not on file Medical Devices Implanted Type Area Credit And Collections Representative Device Identifier Shelf Expiration Date Model / Serial / Lot Cath Apd Flexima 8fr 25cm - [id number] Implanted:Qty: 1 on 04/17/2023 by Rohan Quintero MD at [facility] [employer] [facility] [id number] 10/14/2023 [id number] / [id number] / [id number] Advance Directives For more information, please contact: [phone] Latest Code Status on File Code Status [...] Comments How was code status determined? Physician [facility] Care Teams Early Years Teacher Relationship Specialty Start Date End Date Clinic, No Primary PCP - Primary Care Clinic 04/15/23 Rohan Saldaña MD [address] [place] [address] PCP - General 04/17/23
--- OUTSIDE RECORDS SUMMARY | 2023-09-28 10:33 | XMS_ITS | Encounter Summary ---
Author Name Unknown Organization [facility] Address [address] [place] [address] Care Team Providers Care Manager Supplier Name Role Phone Ariadna, Primary Care Provider [facility], No Primary Unavailable Unavailable Rohan Saldaña MD Primary Care Provider [phone] Reason for Referral * (Routine) - Open Specialty Diagnoses / Procedures Referred By Contac t Referred [place] [address] [place] [address] [place] [address] Referral ID Status Reason Start Date Expiration Date Visits Re quested Visits Authorized [id number] Open 04/28/2023 1 1 * (Routine) - Open Specialty Diagnoses / Procedures Referred By Contac t Referred To Contact Procedures Diet: Regular Han Jacobo MD [address] [place] [address] [place] [address] Referral ID Status Reason Start Date Expiration Date Visits Re quested Visits Authorized [id number] Open 04/28/2023 1 1 * (Routine) - Open Specialty Diagnoses / Procedures Referred By Contac t Referred To Contact Diagnoses COPD exacerbation (HCC) Procedures Oxygen Set Up / Device Han Jacobo MD [address] [place], [place] [address] [address] Referral ID Status Reason Start Date Expiration Date Visits Re quested Visits Authorized [id number] Open 04/28/2023 1 1 * (Routine) - Open Specialty Diagnoses / Procedures Referred By Contac t Referred To Contact Procedures Discharge Immunizations: Influenza vaccine should be given from June through October Han Jacobo MD [address] [place] [address] Referral ID Status Reason Start Date Expiration Date Visits Re quested Visits Authorized [id number] Open 04/28/2023 1 1 * (Routine) - Open Specialty Diagnoses / Procedures Referred By Contac t Referred To Contact Procedures Discharge Immunizations: Pneumovax 0.5 mL IM if not given within last 10 years Han Jacobo MD [address] [place] [address] Referral ID Status Reason Start Date Expiration Date Visits Re quested Visits Authorized [id number] Open 04/28/2023 1 1 * (Routine) - Open Specialty Diagnoses / Procedures Referred By Contac t Referred To Contact Procedures Discharge Immunizations: Yes, give two-step Mantoux (PPD) Per Facility Policy (0.1 mL 5 TU PPD) Han Jacobo MD [address] [place] [address] Referral ID Status Reason Start Date Expiration Date Visits Re quested Visits Authorized [id number] Open 04/28/2023 1 1 * (Routine) - Open Specialty Diagnoses / Procedures Referred By Contac t Referred To Contact Procedures Normal activity as tolerated Han Jacobo MD [address] [place] [address] Referral ID Status Reason Start Date Expiration Date Visits Re quested Visits Authorized [id number] Open 04/28/2023 1 1 * (Routine) - Open Specialty Diagnoses / Procedures Referred By Contac t Referred To Contact Procedures Any questions or concerns Han Jacobo MD [address] [place] [address] Referral ID Status Reason Start Date Expiration Date Visits Re quested Visits Authorized [id number] Open 04/28/2023 1 1 * (Routine) - Open Specialty Diagnoses / Procedures Referred By Contac t Referred To Contact Procedures Rehabilitation Potential: Han Jacobo MD [address] [place] [address] Referral ID Status Reason Start Date Expiration Date Visits Re quested Visits Authorized [id number] Open 04/28/2023 1 1 * (Routine) - Open Specialty Diagnoses / Procedures Referred By Contac t Referred To Contact Procedures Residential Standing Orders- Yes Han Jacobo MD [address] [place] [address] Referral ID Status Reason Start Date Expiration Date Visits Re quested Visits Authorized [id number] Open 04/28/2023 1 1 * (Routine) - Open Specialty Diagnoses / Procedures Referred By Contac t Referred To Contact Procedures Care Level - Skilled Han Jacobo MD [address] [place] [address] Referral ID Status Reason Start Date Expiration Date Visits Re quested Visits Authorized [id number] Open 04/28/2023 1 1 * (Routine) - Open Specialty Diagnoses / Procedures Referred By Contac t Referred To Contact Procedures Condition At Discharge- Improving Han Jacobo MD [address] [place] [address] Referral ID Status Reason Start Date Expiration Date Visits Re quested Visits Authorized [id number] Open 04/28/2023 1 1 * (Routine) - Open Specialty Diagnoses / Procedures Referred By Contac t Referred To Contact Procedures Length Of Stay: Short-term care less than 30 days Han Jacobo MD [address] [place] [address] Referral ID Status Reason Start Date Expiration Date Visits Re quested Visits Authorized [id number] Open 04/28/2023 1 1 * (Routine) - Open Specialty Diagnoses / Procedures Referred By Contac t Referred To Contact Procedures Discharge Instructions Renée Sky APRN, SHEILA [address] [facility] [address] [place] [address] Referral ID Status Reason Start Date Expiration Date Visits Re quested Visits Authorized [id number] Open 04/27/2023 1 1 * (Routine) - Open Specialty Diagnoses / Procedures Referred By Contac t Referred To Contact Procedures Wound care Renée Sky APRN, SHEILA [address] [place] [address] [place] [address] Referral ID Status Reason Start Date Expiration Date Visits Re quested Visits Authorized [id number] Open 04/27/2023 1 1 * (Routine) - Open Specialty Diagnoses / Procedures Referred By Contac t Referred To Contact Procedures Showering instructions Renée Sky, FABRIC SOURCER, HELMET COVERER [address] [place] [address] [place] [address] Referral ID Status Reason Start Date Expiration Date Visits Re quested Visits Authorized [id number] Open 04/27/2023 1 1 * (Routine) - Open Specialty Diagnoses / Procedures Referred By Contac t Referred To Contact Procedures Lifting restrictions Renée Sky, FABRIC SOURCER, HELMET COVERER [address] [place] [address] [place] [address] Referral ID Status Reason Start Date Expiration Date Visits Re quested Visits Authorized [id number] Open 04/27/2023 1 1 * (Routine) - Open Specialty Diagnoses / Procedures Referred By Contac t Referred To Contact Procedures No driving Renée Sky, FABRIC SOURCER, HELMET COVERER [address] [place] [address] [place] [address] Referral ID Status Reason Start Date Expiration Date Visits Re quested Visits Authorized [id number] Open 04/27/2023 1 1 * (Routine) - Open Specialty Diagnoses / Procedures Referred By Contac t Referred To Contact Procedures General activity Renée Sky FABRIC SOURCER, HELMET COVERER [address] [place] [address] [place] [address] Referral ID Status Reason Start Date Expiration Date Visits Re quested Visits Authorized [id number] Open 04/27/2023 1 1 * (Routine) - Open Specialty Diagnoses / Procedures Referred By Contac t Referred To Contact Renée Sky APRN, SHEILA [address] [facility] [address] [place] [address] Anshul Tarango PA-C [address] [place] [address] [address] [place] [address] Referral ID Status Reason Start Date Expiration Date Visits Re quested Visits Authorized [id number] Open 04/27/2023 1 1 Question Answer Specify time frame for follow up? 2 Weeks Instructions to follow-up provider FPO Comments Follow up with Dr. Tarango's team in two weeks on MondayMay 15. - Please arrive on first floor [facility] at 12:15 for a chest Xray at 12:30. -Then go to the second floor at the I clinic and check in for your office visit at 1:30. Please call [phone] for questions or to reschedule your appointment. * (Routine) - Open Specialty Diagnoses / Procedures Referred By Contac t Referred To Contact Renée Sky APRN, CNP [address] [facility] [address] [place] [address] Rohan Saldaña MD [address] [place] [address] Referral ID Status Reason Start Date Expiration Date Visits Re quested Visits Authorized [id number] Open 04/27/2023 1 1 Question Answer Follow Up Instructions S/p VATS/Pleurodesis Specify time frame for follow up? 1 Week Instructions to follow-up provider S/p VATS/Talc Pleurodesis Comments Follow up with primary care physician/nurse within 1 week. Please call your primary care office to arrange this as soon as possible * (Routine) - Open Specialty Diagnoses / Procedures Referred By Contac t Referred To Contact Procedures Smoking Cessation Renée Sky APRN, SHEILA [address] [place] [address] [place] [address] Referral ID Status Reason Start Date Expiration Date Visits Re quested Visits Authorized [id number] Open 04/27/2023 1 1 * (Routine) - Open Specialty Diagnoses / Procedures Referred By Contac t Referred To Contact Procedures Pain Renée Sky APRN, CNP [address] [facility] [address] [place] [address] Referral ID Status Reason Start Date Expiration Date Visits Re quested Visits Authorized [id number] Open 04/27/2023 1 1 * (Routine) - Open Specialty Diagnoses / Procedures Referred By Contac t Referred To Contact Procedures misc instruction Renée Sky APRN, SHEILA [address] [facility] [address] [place] [address] Referral ID Status Reason Start Date Expiration Date Visits Re quested Visits Authorized [id number] Open 04/27/2023 1 1 * (Routine) - Open Specialty Diagnoses / Procedures Referred By Contac t Referred To Contact Procedures Any questions or concerns Renée Sky APRN, SHEILA [address] [place] [address] [place] [address] Referral ID Status Reason Start Date Expiration Date Visits Re quested Visits Authorized [id number] Open 04/27/2023 1 1 * (Routine) - Open Specialty Diagnoses / Procedures Referred By Contac t Referred To Contact Diagnoses Spontaneous tension pneumothorax Procedures XR CHEST PA & LAT Renée Sky APRN, SHEILA [address] [facility] [address] [place] [address] Referral ID Status Reason Start Date Expiration Date Visits Re quested Visits Authorized [id number] Open 05/15/2023 1 1 Reason for Visit * Reason Comments Pneumothorax * Inpatient Admission (Routine) Specialty Diagnoses / Procedures Referred By Contac t Referred To Contact Diagnoses Spontaneous pneumothorax Referral ID Status Reason Start Date Expiration Date Visits Re quested Visits Authorized [id number] 1 1 Encounter Details Date Type Department Care Team (Late st Contact Info) Description 04/15/2023 6:37 AM CDT - 04/28/2023 1:34 PM CDT Hospital Encounter A4 [address] [place], [place] [address] Hailee Angulo MD [address] [place], [place] [address] Emilee Griggs MD [address] [place] [id number] Sravani Chaudhary MBBS [address] [place] [address] Rommel Pierre MD [address] [place] [id number] [facility] [place] [address] [place] [id number] Stefany Agosto MD [address] [place] [id number] Ghazal Tan MD [address] [place] [address] Han Jacobo MD [address] [place] [address] Spontaneous pneumothorax Discharge Disposition: Residential/SNF Social History Tobacco Use Types Packs/Day Years Used Date Smoking Tobacco: Some Days Cigarettes 30 Smokeless Tobacco: Never Tobacco Cessation:Ready to Q uit: Yes; Counseling Given: Yes Comments:Stopping off/of for the last 6 months [...] Sign Reading Time Taken Comments Blood Pressure 122/84 04/28/2023 1:07 PM CDT Pulse 106 04/28/2023 1:07 PM CDT Temperature 36.7 ??C (98 ??F) 04/28/2023 1:07 PM CDT Respiratory Rate 18 04/28/2023 1:07 PM CDT Oxygen Saturation 94% 04/28/2023 1:07 PM CDT Inhaled Oxygen Concentration - - Weight 78.5 kg (173 lb) 04/21/2023 3:35 PM CDT Height 182.9 cm (6') 04/21/2023 3:35 PM CDT Body Mass Index 23.46 04/21/2023 3:35 PM CDT documented in this encounter Discharge Summaries * Han Jacobo MD - 04/28/2023 10:21 AM CDT Discharge Summary Patient Name: Carl Prasad Date of : 1970 Admitting Provider: Emilee Griggs MD Discharge Provider: Han Jacobo MD Primary Care Physician at Discharge: Rohan Saldaña MD [phone] Admission Date: 04/15/2023 Discharge Date: 04/28/2023 Operative Procedures Performed: VATS, pleurodesis Discharge Disposition: Residential/SNF Presenting Problem/History of Present Illness HPI: 53 year old man with end stage COPD on 3L home O2, has been referred to [facility] for lung transplant eval but declined due to finances and ongoing occasional smoking. Admitted 04/15 for tension pneumothorax, persistent air leak despite conservative management, now s/p VATS 04/[address] Tarango. No obvious target for stapling, so talc pleurodesis was done. Transferred out of the ICU on 04/21/2023. Interval history: Pt states he's feeling much better than yesterday after prednisone. Able to ambulate in room without significant dyspnea. No more sense of chest tightness, no pain or pressure. No new cough or fever. No other complaints this morning. Hospital Course: Left sided pneumothorax: secondary to COPD Failed conservative management, now s/p VATS with talc pleurodesis on 04/20 Chest tube management per CTS - removed 04/25 - f/u CXR showing trace apical ptx, air in chest wall only. Improved. Continue multimodal pain regimen Acute on chronic hypoxic respiratory failure: due to COPD and pneumothorax. Titrate oxygen as able.Will order oxygen on DC (was on 3L [employer]ETING [employer]IN[employer]) Presumed pneumonia: completed 7 days of ceftriaxone on 04/23 End-stage COPD, with acute exacerbation: on 3 liters of home oxygen Transplant offered at [facility], patient declined due to cost and care considerations after transplant Had evident reduced air mvmt and end expiratory wheeze on 04/27 - much improved with prednisone, continue 5 day burst. Abdominal pain of unclear etiology: resolved Reportedly developed left upper quadrant pain on [address] A/P negative for acute findings. He wasstarted on scheduled bowel regimen, scheduled simethicone and IV PPI. Abdominal pain improved and had several BM Sinus tachycardia: due to above. Improved. Some return to 110's as activity has increased. Code Status: FULL Objective: Vital signs in last 24 hours: BP 113/81 Pulse (!) 102 Temp 97.7 ??F (36.5 ??C) Resp 17 Ht 6' (1.829 m) Wt 78.5 kg (173 lb) SpO2 93% BMI 23.46 kg/m?? GEN: A&Ox3, NAD, cooperative, good spirits HEENT: PERRL, EOMI, no scleral icterus or conjunctival injection Heart: RRR without MRG Lungs: BS diminished with reduced air mvmt, + end expiratory wheezing Abdom: soft, NT/ND, NABS, no masses or HSM Extrem: No c/c/e, distal pulses intact Neuro: CN, motor, sensory grossly intact Discharge Meds: Current Discharge Medication List NEW MEDICATIONS Details acetaminophen (TYLENOL) 500 mg oral tablet Take 1-2 tablets (500-1,000 mg) by mouth every 6 (six) hours as needed for fever or pain. Refills: 0 albuterol-ipratropium, conc: 3-0.5mg/3mL, (DUO-NEB) Inhl nebulizer solution Nebulize 3 mL every 6 (six) hours as needed. Qty: 90 mL, Refills: 0 melatonin 3 mg oral tablet Take 1 tablet (3 mg) by mouth at bedtime. Refills: 0 methocarbamoL (ROBAXIN) 750 mg oral tablet Take 1 tablet (750 mg) by mouth every 6 (six) hours as needed. Qty: 10 tablet, Refills: 0 oxyCODONE, immediate release, (ROXICODONE) 5 mg oral tablet Take 1 tablet (5 mg) by mouth every 6 (six) hours as needed (if robaxin and acetaminophen not effective). Qty: 10 tablet, Refills: 0 polyethylene glycol (MIRALAX) 17 gram oral packet Take 17 g by mouth once a day as needed for constipation. Mix each dose in 4-8 ounces of liquid as directed. Refills: 0 predniSONE (DELTASONE) 20 mg oral tablet Take 2 tablets (40 mg) by mouth once daily for 3 doses. Refills: 0 senna (SENOKOT) 8.6 mg oral tablet Take 2 tablets (17.2 mg) by mouth every evening. Refills: 0 simethicone (MYLICON) 80 mg oral chewable tablet Chew 1 tablet (80 mg) every 6 (six) hours as needed. MEDICATIONS CONTINUED UNCHANGED Details albuterol HFA (PROVENTIL;VENTOLIN HFA) 90 mcg/actuation Inhl inhaler Inhale 2 puffs every 4 (four) hours as needed. aspirin 81 mg oral chewable tablet Chew 1 tablet (81 mg) once daily. ocstnhgziqu-wmcvinkmi-zdogtscb 100-62.5-25 mcg Inhl DsDv Inhale 1 Inhalation once daily. Outpatient Follow-Up: PCP Total time for discharge: 33 minutes documented in this encounter Discharge Instructions * Attachments The following attachments cannot be sent through Care Everywhere. * COPD (Chronic Obstructive Pulmonary Disease) (AfterCare(R) Instructions(ER/ED)) (Micronesian) * Spontaneous Pneumothorax (AfterCare(R) Instructions(ER/ED)) (Micronesian) * Chemical Pleurodesis (Discharge Care) (Micronesian) documented in this encounter Medications at Time of Discharge Medication Sig Dispensed Refills Start Date End Date acetaminophen (TYLENOL) 500 mg oral tablet Take 1-2 tablets (500-1,000 mg) by mouth every 6 (six) hours as needed for fever or pain. 0 04/28/2023 albuterol HFA (PROVENTIL;VENTOLIN HFA) 90 mcg/actuation Inhl inhaler Inhale 2 puffs every 4 (four) hours as needed. 0 albuterol-ipratropiu m, conc: 3-0.5mg/3mL, (DUO-NEB) Inhl nebulizer solution Nebulize 3 mL every 6 (six) hours as needed. 90 mL 0 04/28/2023 fluticasone-umeclidi n-vilanter 100-62.5-25 mcg Inhl DsDv Inhale 1 Inhalation once daily. 0 aspirin 81 mg oral chewable tablet Chew 1 tablet (81 mg) once daily. 0 05/15/2023 melatonin 3 mg oral tablet Take 1 tablet (3 mg) by mouth at bedtime. 0 04/28/2023 05/15/2023 methocarbamoL (ROBAXIN) 750 mg oral tablet Take 1 tablet (750 mg) by mouth every 6 (six) hours as needed. 10 tablet 0 04/28/2023 05/15/2023 oxyCODONE, immediate release, (ROXICODONE) 5 mg oral tablet Take 1 tablet (5 mg) by mouth every 6 (six) hours as needed (if robaxin and acetaminophen not effective). 10 tablet 0 04/28/2023 05/15/2023 polyethylene glycol (MIRALAX) 17 gram oral packet Take 17 g by mouth once a day as needed for constipation. Mix each dose in 4-8 ounces of liquid as directed. 0 04/28/2023 05/15/2023 predniSONE (DELTASONE) 20 mg oral tablet Take 2 tablets (40 mg) by mouth once daily for 3 doses. 0 04/29/2023 05/02/2023 senna (SENOKOT) 8.6 mg oral tablet Take 2 tablets (17.2 mg) by mouth every evening. 0 04/28/2023 05/15/2023 simethicone (MYLICON) 80 mg oral chewable tablet Chew 1 tablet (80 mg) every 6 (six) hours as needed. 0 04/28/2023 05/15/2023 documented as of this encounter Progress Notes * Tani Castañeda RN - 04/28/2023 1:19 PM CDT Carl Prasad 1970 [id number] P: Discharge A: Discharged via wheelchair to TCU at 1330 escorted by nurse I: Discharge information and arrangements included: review of written discharge instructions, review of purpose and side effects of new medication, prescriptions e-Prescribed, portable oxygen sent with the patient/family., belongings list completed. R:Patient, mother, sister expressed understanding of information.. * Renée Sky APRN, HELMET COVERER - 04/27/2023 11:06 AM CDT CV SURGERY PROGRESS NOTE S/p Left VATS with instillation of 8 grams talc pleurodesis. POD # 7 SUBJECTIVE Sitting up in chair, was seen walking with rolling walker and oxygen in hallway. Had episode of shortness of breath early this morning, feels better now. Planned discharge on hold at this time. OBJECTIVE Temp (24hrs), Av.7 ??F (36.5 ??C), Min:97.5 ??F (36.4 ??C), Max:97.9 ??F (36.6 ??C) Weight: 78.5 kg (173 lb) BP 113/81 Pulse (!) 102 Temp 97.7 ??F (36.5 ??C) Resp 17 Ht 6' (1.829 m) Wt 78.5 kg (173 lb) SpO2 93% BMI 23.46 kg/m?? NAD, AO Trochar/CT Sites clean, dry and intact. Respirations regular, non-labored at rest, on O2 via nasal cannula. Lower extremities without edema. Recent Labs Recent Labs 04/25/23 0439 04/25/23 1919 04/26/23 1056 SODIUM 138 -- -- POTASSIUM 4.1 -- 4.6 MAGNESIUM 1.6 1.9 1.8 BUNUREANRO 13 -- -- CREATININE 0.72* -- 0.71* GLUCOSE 98 -- -- HEMOGLOBIN 10.4* -- -- WBC 8.9 -- -- PLATELETCT 363 -- -- ASSESSMENT/PLAN 53yo with PMH of COPD on home oxygen who was admitted from OSH for Left tension pneumothorax with chest tube placed. Due to continuous air leak recommended/underwent talc pleurodesis 04/20/23. Chest tubes pulled on POD# 5, CXR with stable Left apical PTX. Today with increased SOB, CXR stable, no new PTX. Treated for presumed pneumonia with ceftriaxone. S/P Left VATS with instillation of 8 grams talc pleurodesis. Pulmonary toilet - encourage IS / on chronic home O2 Prednisone started per medicine team for COPD exacerbation. Pain Controlled with acetaminophen, methocarbamol and oxycodone as needed. Avoid NSAID's for ~2 weeks following pleurodesis. Ok to resume aspirin 81mg at discharge. Tobacco Cessation Encourage cessation Disposition: Plan to discharge to TCU, cancelled for today due to SOB overnight, ok to discharge from surgical perspective. I have discussed wound care, activity precautions, medications and follow up appointments. Follow up - 1 week with PCP / 2 weeks Cardiac Surgery(scheduled). Renée Sky APRN CNP/Dr. Tarango CT Surgery Pager [phone] 04/27/2023 11:06 AM * Han Jacobo MD - 04/27/2023 9:50 AM CDT HOSPITALIST DIVISION PROGRESS NOTE 04/27/2023 Principal Problem: Spontaneous pneumothorax HPI: 53 year old man with end stage COPD on 3L home O2, has been referred to [facility] for lung transplant eval but declined due to finances and ongoing occasional smoking. Admitted 04/15 for tension pneumothorax, persistent air leak despite conservative management, now s/p VATS 04/[address] Tarango. No obvious target for stapling, so talc pleurodesis was done. Transferred out of the ICU on 04/21/2023. Interval history: Pt states he's feeling better than he did first thing this AM - increased SOB andsense of chest tightness, no pain or pressure. No new cough or fever. No other complaints this morning. Assessment/Plan: Left sided pneumothorax: secondary to COPD Failed conservative management, now s/p VATS with talc pleurodesis on 04/20 Chest tube management per CTS - removed 04/25 - f/u CXR showing trace apical ptx, air in chest wall only. Improved. Continue multimodal pain regimen Acute on chronic hypoxic respiratory failure: due to COPD and pneumothorax. Titrate oxygen as able.Will order oxygen for home. Presumed pneumonia: completed 7 days of ceftriaxone on 04/23 End-stage COPD, with acute exacerbation: on 3 liters of home oxygen Transplant offered at [facility], patient declined due to cost and care considerations after transplant Has had diminished BS but this AM evident reduced air mvmt and end expiratory wheeze noted. Start prednisone, continue nebs, monitor response. Abdominal pain of unclear etiology: resolved Reportedly developed left upper quadrant pain on 8/[address] A/P negative for acute findings. He wasstarted on scheduled bowel regimen, scheduled simethicone and IV PPI. Abdominal pain improved and had several BM Sinus tachycardia: due to above. Improved. Some return to 110's as activity has increased. Plan for Disposition: [facility] tcu will take pt when ready for DC - discharge will need to be cancelled for today Code Status: FULL DVT prophylaxis: SCD Objective: Vital signs in last 24 hours: BP 113/81 Pulse (!) 102 Temp 97.7 ??F (36.5 ??C) Resp 17 Ht 6' (1.829 m) Wt 78.5 kg (173 lb) SpO2 93% BMI 23.46 kg/m?? GEN: A&Ox3, NAD, cooperative, good spirits HEENT: PERRL, EOMI, no scleral icterus or conjunctival injection Heart: RRR without MRG Lungs: BS diminished with reduced air mvmt, + end expiratory wheezing Abdom: soft, NT/ND, NABS, no masses or HSM Extrem: No c/c/e, distal pulses intact Neuro: CN, motor, sensory grossly intact Case discussed with patient, nurse Total time for visit minutes Han Jacobo MD, [facility] * Carl Booker, DO - 04/27/2023 6:35 AM CDT Called this evening to evaluate patient for sudden onset shortness of breath. Patient endorses his chest feeling tight. He is admitted for a spontaneous PTX and is now POD6 of thoracotomy and bleb resection with a left sided chest tube removed two days ago. STAT chest xray was notable for a stable left apical pneumothorax with left lateral chest; wall tissue emphysema superiorly which marginally decreased; and stable small left basilar pleural effusion with atelectasis. EKG noted sinus tachycardia. On exam the patient was hyperventilating with an increased oxygen requirement from 4L to 6L. His lungs were tight with expiratory wheezing. Overall his small apical pneumothorax has not worsened and there are no other new pneumothoraces; I suspect his current distress is due to his COPD. A duoneb was requested to be administered by respiratory therapy; will continue to assess response. Dr. Carl Booker D.O. [facility] [place] * April Freitas, RN - 04/26/2023 1:35 PM CDT Med-Surg Care Progression Note Type: Shift to shift summary Length of stay: 11 days Code Status: Full Code Primary Problem: Spontaneous pneumothorax, persistent air leak 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 Referred to [facility] for lung transplant eval but declined due to finances and ongoing occasional smoking. Post-surgical leukocytosis. 04/20: TALC pleurodesis (POD x6) 04/25 chest tubes removed F- Feeding & Fluids: Tolerating regular diet. A- Analgesic & Anticoagulation: Comfort Goal: Numeric, Verbal, Faces: 4 - Moderate Analgesic Scheduled Robaxin. PRN Tylenol, oxycodone, and torodol. IV dilaudid is now dc'd this afternoon. Pain at where the Chest tubes were. Anticoagulation/DVT prevention & plan SCDs S- Skin: Renetta Subcategory Concern(s): Sensory Perception: No Impairment Moisture: Occasionally Moist Moisture Interventions: Keep folds dry/interdry/nystatin and Change gown/bath/hygiene Activity: Walks Occasionally Activity Interventions: Reposition every 2 hours Nutrition: Adequate Nutrition Interventions: Calorie intake Mobility: Slightly Limited Mobility Interventions: Turning every 2 hrs Friction and Shear: No Apparent Problem Total Renetta Score: 19: T- Telemetry: Rhythm: Sinus Rhythm; Sinus Tachycardia Ectopy: None Tele dc'd E- Emotional & Neuro: Participating in cares Neuro Alert and Oriented R- Respiratory: Respiratory device 3L NC (base 3L) O2 goal to keep SpO2 above 88-90%. H- Head OUT of Bed & Activity: Activate Fall Alert? (Enter 1 or 0): 1 Ambulating A1, fatigues easily Progressive mobility Phases 5-7: Phase 6: 25 feet or more U- Urologic/bowel: Size: Large (04/26/2023 8:00 AM) Voiding via urinal G- Glycemic Control: Not applicable T- Treatment: Pain management, PT/OT I- Invasive Devices: PIV D- Discharge: DC to TCU 04/27 at 1400. * Han Jacobo MD - 04/26/2023 1:24 PM CDT HOSPITALIST DIVISION PROGRESS NOTE 04/26/2023 Principal Problem: Spontaneous pneumothorax HPI: 53 year old man with end stage COPD on 3L home O2, has been referred to [facility] for lung transplant eval but declined due to finances and ongoing occasional smoking. Admitted 04/15 for tension pneumothorax, persistent air leak despite conservative management, now s/p VATS 04/[address] Tarango. No obvious target for stapling, so talc pleurodesis was done. Transferred out of the ICU on 04/21/2023. Interval history: Pt states he's feeling much better with chest tubes out, still some discomfort with breathing and particularly with transfers. No other complaints this morning. Assessment/Plan: Left sided pneumothorax: secondary to COPD Failed conservative management, now s/p VATS with talc pleurodesis on 04/20 Chest tube management per CTS - removed 04/25 - f/u CXR showing trace apical ptx, air in chest wall only. Improved from yesterday. Continue multimodal pain regimen Acute on chronic hypoxic respiratory failure: due to COPD and pneumothorax. Titrate oxygen as able.Will order oxygen for home. Presumed pneumonia: completed 7 days of ceftriaxone on 04/23 End-stage COPD: on 3 liters of home oxygen Transplant offered at [facility], patient declined due to cost and care considerations after transplant Abdominal pain of unclear etiology: resolved Reportedly developed left upper quadrant pain on 04/[address] A/P negative for acute findings. He wasstarted on scheduled bowel regimen, scheduled simethicone and IV PPI. Abdominal pain improved and had several BM Sinus tachycardia: due to above. Improved. Some return to 110's as activity has increased. Plan for Disposition: [facility] tcu will take pt for 2 pm tomorrow. pt will call familyfor ride. Code Status: FULL DVT prophylaxis: SCD Objective: Vital signs in last 24 hours: BP 138/77 Pulse (!) 110 Temp 97.5 ??F (36.4 ??C) Resp 18 Ht 6' (1.829 m) Wt 78.5 kg (173 lb) SpO2 91% BMI 23.46 kg/m?? GEN: A&Ox3, NAD, cooperative, good spirits HEENT: PERRL, EOMI, no scleral icterus or conjunctival injection Heart: RRR without MRG Lungs: CTAB Abdom: soft, NT/ND, NABS, no masses or HSM Extrem: No c/c/e, distal pulses intact Neuro: CN, motor, sensory grossly intact Case discussed with patient, nurse Total time for visit minutes Han Jacobo MD, [facility] * August Tarango MD - 04/26/2023 10:24 AM CDT Cardiovascular and Thoracic Surgery Progress Note Assessment/Plan: CXR ordered in anticipation of discharge if no change. Intake/Output Summary (Last 24 hours) at 04/26/2023 1024 Last data filed at 04/26/2023 0957 Gross per 24 hour Intake 753.34 ml Output 2550 ml Net -1796.66 ml Invalid input(s): HCT, HGB, CR Vitals: 04/25/23 1941 04/25/23 2357 04/26/23 0400 04/26/23 0759 BP: (!) 134/90 117/77 124/70 138/77 Pulse: (!) 108 93 (!) 113 (!) 110 Resp: 18 16 16 18 Temp: 97.9 ??F (36.6 ??C) 97.6 ??F (36.4 ??C) 97.7 ??F (36.5 ??C) 97.5 ??F (36.4 ??C) SpO2: 92% 98% 92% 91% Weight: Height: * Jesika Osborne RN - 04/25/2023 10:44 PM CDT Progress Note: [id number] Spontaneous pneumothorax. POD #5 TALC pleurodesis Hx: End-Stage COPD (BL O2 3-4L). Referred to [facility] for lung transplant eval but declined d/t finances and ongoing smoking. Post-surgical leukocytosis Pt is alert and oriented x4, able to make needs known. O2 increased to 4L NC to keep sats >90. Ambulated Pt in the hallway. Painful with movement. PRN Dilaudid given x2, effective. CTs removed this AM, CXR done this afternoon, no significant change from previous. Sinus Tach on tele, no calls. May need TCU at discharge. BP (!) 134/90 Pulse (!) 108 Temp 97.9 ??F (36.6 ??C) Resp 18 Ht 6' (1.829 m) Wt 78.5 kg (173 lb) SpO2 92% BMI 23.46 kg/m?? * Samy Martins RN - 04/25/2023 6:42 PM CDT Progress Note: [id number] Spontaneous pneumothorax. POD #5 TALC pleurodesis Hx: End-Stage COPD (BL O2 3-4L). Referred to [facility] for lung transplant eval but declined d/t finances and ongoing smoking. Post-surgical leukocytosis Pt is alert and oriented x4, able to make needs known. O2 increased to 4L NC to keep sats >90. Up in the chair with Ax1 for meals. Painful with movement. PRN Dilaudid effective. CTs removed this AM, CXR done this afternoon, no significant change from previous. Sinus Tach on tele, no calls. May need TCU at discharge. BP (!) 124/90 Pulse 96 Temp 98.3 ??F (36.8 ??C) Resp 16 Ht 6' (1.829 m) Wt 78.5 kg (173 lb) SpO2 90% BMI 23.46 kg/m?? * April Duron - 04/25/2023 3:31 PM CDT Nutrition Assessment Reason for Assessment: Follow up Malnutrition : Does not meet malnutrition criteria This may change per physician's clinical assessment. Loss of Muscle Mass: Not present Loss of Subcutaneous Fat: Not present Energy Intake: Adequate intakes Interpretation of Weight Loss: No significant weight loss appreciated NUTRITION INTERVENTION, MONITORING, AND EVALUATION Interventions/Recommendations: Nutrition Prescription: Level 7 Regular with Level 0 Thin Medical Food Supplements: BID; Boost Plus or comparable Goal: Meet greater than 75% of estimated needs during hospital admission Evaluation: Likely met; current goal still appropriate, continue Monitor for next visit: PO intakes Nutrition Care Level: Low (f/u within 7 days) NUTRITION-RELATED ASSESSMENT Reason for admission: Spontaneous pneumothorax PMH: Past Medical History: Diagnosis Date COPD (chronic obstructive pulmonary disease) ([facility]) Deep vein thrombosis (DVT) ([facility]) Dietitian Visit Summary: 04/25/23: Pt tiring of hospital food; intake has been fair/good per I&Os. Pt is drinking boost supplement, continue as planned. No new concerns. 04/19/23: Open to Boost Plus supplements to help with protein adequacy. Now with planned surgery. 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 Other Pertinent Factors: NA Anthropometric/Physical: Height: 6' (182.9 cm) Admitting Weight: 73 kg (161 lb), Actual Weight: 78.5 kg (173 lb) IBW: 81 kg +/- 10%, 90% IBW Body mass index is 23.46 kg/m??., BMI Category: Normal (18.5-24.9) Actual weight change at admission: stable overall Clinically significant for malnutrition: No Weight Readings: Wt Readings from Last 10 Encounters: 04/21/23 78.5 kg (173 lb) 68.5 kg (151 lb 0.2 oz) 09/09/2015 Skin: Reviewed Digestive System: no concerns Last bowel movement: Size: Large (04/25/2023 9:54 AM) Bowel Meds: on NOV for PRN Labs: Lab Results Component Value Date ALBUMIN 3.7 04/15/2023 GLUCOSE 98 04/25/2023 GLUCOSE 99 04/23/2023 GLUCOSE 122 (H) 04/20/2023 GLUCOSE 114 (H) 04/15/2023 Lab Results Component Value Date SODIUM 138 04/25/2023 SODIUM 136 04/23/2023 POTASSIUM 4.1 04/25/2023 POTASSIUM 4.7 04/15/2023 MAGNESIUM 1.6 04/25/2023 CALCIUMSERUM 9.0 04/25/2023 BUNUREANRO 13 04/25/2023 CREATININE 0.72 (L) 04/25/2023 CREATININE 0.8 04/15/2023 Medications Reviewed: Current Facility-Administered Medications Medication Dose Route Frequency Provider Last Rate Last Admin saline FLUSH syringe 10 mL 10 mL Intravenous Q8H Emilee Griggs MD 10 mL at 04/25/23 1318 saline FLUSH syringe 10 mL 10 mL Intravenous PRN Emilee Griggs MD 10 mL at 04/25/23 0643 acetaminophen (TYLENOL) tablet 500-1,000 mg 1-2 tablet oral Q6H PRN Viraj Kumar MD 500 mg at 04/25/23 1318 albuterol-ipratropium (conc: 3-0.5mg/3mL) (DUO-NEB) nebulizer solution 3 mL 1 ampule Nebulization QID-RESPIRATORY Emilee Griggs MD 3 mL at 04/25/23 1116 fluticasone 100 mcg-vilanterol 25 mcg (BREO) inhaler 1 Inhalation 1 Inhalation Inhalation DAILY Dhaval Yao MD 1 Inhalation at 04/25/23 0800 HYDROmorphone (DILAUDID) syringe 0.2-0.5 mg 0.2-0.5 mg Intravenous Q1H PRN August Tarango MD 0.5 mg at 04/25/23 1318 ketorolac (ToradoL) injection 15 mg 15 mg Intravenous Q8H PRN Alex Santana PA-C 15 mg at 04/24/23 0101 lidocaine (LMX-4) topical cream 1 Application 1 Application topical PRN Emilee Griggs MD lidocaine / sod bicarb (buffered lidocaine) syringe for IV starts 0.1-0.3 mL 0.1-0.3 mL IntradermalPRN Emilee Griggs MD lidocaine 1% injection (conc: 10 mg/mL) 0.1-0.3 mL 0.1-0.3 mL Intradermal PRN Emilee Griggs MD 0.1 mL at 04/21/23 1848 lidocaine 4% (Salonpas) adhesive patch, medicated 1 patch 1 patch Transdermal DAILY Anshul Yarbrough MD 1 patch at 04/25/23 0807 MAGNESIUM REPLACEMENT INTRAVENOUS - NOT FOR DOCUMENTATION PURPOSES Intravenous PER PROTOCOL Sravani Chaudhary MBBS melatonin tablet 3 mg 3 mg oral Q BEDTIME Pauline Rangel DO 3 mg at 04/24/23 2109 methocarbamoL (ROBAXIN) tablet 750 mg 750 mg oral QID Ghazal Tan MD 750 mg at 04/25/23 1150 ondansetron (ZOFRAN) injection 4-8 mg 4-8 mg Intravenous Q8H PRN Emilee Griggs MD 4 mg at 04/22/23 0228 Or ondansetron (ZOFRAN) disintegrating tablet 4-8 mg 4-8 mg oral Q8H PRN Emilee Griggs MD oxyCODONE (immediate release) (ROXICODONE) tablet 5-10 mg 5-10 mg oral Q6H PRN Verito Godoy MD 10 mg at 04/25/23 0938 [START ON 04/26/2023] pantoprazole (PROTONIX) delayed release tablet 40 mg 40 mg oral DAILY Ghazal Tan MD polyethylene glycol (MIRALAX) packet 17 g 17 g oral DAILY PRN Viraj Kumar MD 17 g at 04/22/23 0434 POTASSIUM REPLACEMENT ORAL - NOT FOR DOCUMENTATION PURPOSES oral PER PROTOCOL Sravani Chaudhary MBBS Or POTASSIUM REPLACEMENT INTRAVENOUS - NOT FOR DOCUMENTATION PURPOSES Intravenous PER PROTOCOL Sravani Chaudhary MBBS senna-docusate (SENNA-S) tablet 2 tablet 2 tablet oral Twice Daily Ghazal Tan MD 2 tablet at 04/24/23 1933 simethicone (MYLICON) chewable tablet 80 mg 80 mg oral TID PC and HS Ghazal Tan MD 80 mg at 04/25/23 1150 Nutrition Diagnosis No nutrition diagnosis at this time April Duron DTR Available via [employer] * Han Jacobo MD - 04/25/2023 12:48 PM CDT HOSPITALIST DIVISION PROGRESS NOTE 04/25/2023 Principal Problem: Spontaneous pneumothorax HPI: 53 year old man with end stage COPD on 3L home O2, has been referred to [facility] for lung transplant eval but declined due to finances and ongoing occasional smoking. Admitted 04/15 for tension pneumothorax, persistent air leak despite conservative management, now s/p VATS 04/[address] Tarango. No obvious target for stapling, so talc pleurodesis was done. Transferred out of the ICU on 04/21/2023. Interval history: Pt states he's feeling much better with chest tubes out (this morning) - mild discomfort with breathing only. No other complaints this morning. Assessment/Plan: Left sided pneumothorax: secondary to COPD Failed conservative management, now s/p VATS with talc pleurodesis on 04/20 Chest tube management per CTS - removed this morning (04/25) - f/u CXR showing trace apical ptx, air in chest wall only. Continue multimodal pain regimen Acute on chronic hypoxic respiratory failure: due to COPD and pneumothorax. Titrate oxygen as able. Presumed pneumonia: completed 7 days of ceftriaxone on 04/23 End-stage COPD: on 3 liters of home oxygen Transplant offered at [facility], patient declined due to cost and care considerations after transplant Abdominal pain of unclear etiology: resolved Reportedly developed left upper quadrant pain on [address] A/P negative for acute findings. He wasstarted on scheduled bowel regimen, scheduled simethicone and IV PPI. Abdominal pain improved and had several BM Sinus tachycardia: due to above. Improved. Plan for Disposition: Home vs TCU (presently requiring assist by PT) TOMORROW, pending repeat CXR Code Status: FULL DVT prophylaxis: SCD Objective: Vital signs in last 24 hours: BP (!) 145/95 Pulse 86 Temp 98.1 ??F (36.7 ??C) Resp 16 Ht 6'(1.829 m) Wt 78.5 kg (173 lb) SpO2 96% BMI 23.46 kg/m?? GEN: A&Ox3, NAD, cooperative, good spirits HEENT: PERRL, EOMI, no scleral icterus or conjunctival injection Heart: RRR without MRG Lungs: CTAB Abdom: soft, NT/ND, NABS, no masses or HSM Extrem: No c/c/e, distal pulses intact Neuro: CN, motor, sensory grossly intact Case discussed with patient, nurse Total time for visit minutes Han Jacobo MD, [facility] * Alex Santana PA-C - 04/25/2023 8:[address] SURGERY PROGRESS NOTE S/p Thoracotomy, bleb resection, spontaneous PTX POD # 4 SUBJECTIVE Patient found resting in chair was winded after getting on commode. Clamping trail successful last night, CXR today shows stable PTX. Will pull chest tube today. Repeat CXR midday. PT/OT and DC planning. TCU vs. Home. OBJECTIVE Temp (24hrs), Av.1 ??F (36.7 ??C), Min:98 ??F (36.7 ??C), Max:98.2 ??F (36.8 ??C) Weight: 78.5 kg (173 lb) BP 121/84 Pulse (!) 110 Temp 98.1 ??F (36.7 ??C) Resp 16 Ht 6' (1.829 m) Wt 78.5 kg (173 lb) SpO2 96% BMI 23.46 kg/m?? Wounds: redressed today, crepitus present Rhythm:tachycardia, regular rhythm Chest Tube #1 Left Pleural-Chest Tube Output (ml): clamped overnight CXR: 04/24 Left apical PTX unchanged Breath sounds: Expiratory wheezing Abdominal:Soft non-tender Pain: mild Worse with movement, controlled when resting. Added Robaxin PRN UOP:1050 cc out last 24 hours Recent Labs Recent Labs 04/23/23 0434 04/23/23 1616 04/24/23 1111 04/25/23 0439 SODIUM 136 -- -- 138 POTASSIUM 4.3 -- 4.6 4.1 MAGNESIUM 1.6 < > 2.0 1.6 BUNUREANRO 10 -- -- 13 CREATININE 0.69* -- -- 0.72* GLUCOSE 99 -- -- 98 HEMOGLOBIN 11.2* -- -- 10.4* WBC 13.9* -- -- 8.9 PLATELETCT 322 -- -- 363 < > = values in this interval not displayed. ASSESSMENT/PLAN S/P S/p Thoracotomy, bleb resection, spontaneous PTX Pulmonary toilet - encourage IS / wean 02 Post-op Blood sugar- transition to SSi as per Pharm D Chest Tubes - Pull this AM, bed rest till 1030, repeat CXR at 2pm Weight/Volume status Diuresis Cr 0.72, making ok urine, no lasix Pain - Added Robaxin PRN Smoking status - current smoker Disposition: Continue Intermediate cares, OK to DC from surgical standpoint tomorrow if Cxr stable post tube removal. Alex Santana PA-C/Dr. Tarango [facility] Sur[facility] Pager [phone] * Clay Farmer MD - 04/24/2023 12:23 PM CDT Pulmonary Progress Note Summary: Carl Prasad is a 53 year old man with end stage COPD on 3L home O2, has been referred to [facility] for lung transplant eval but declined due to finances and ongoing occasional smoking. Admitted 04/15 for tension pneumothorax, persistent air leak, now s/p VATS pleurodesis 04/[address] Tarango. Physical Exam: Vitals reviewed. 93% on baseline 3L. HR 110s, afebrile, SBP 120s. Results: I personally reviewed pertinent labs, imaging, and other diagnostic tests, which are notable for: CT 04/17 reviewed by me. Severe emphysema with moderate pneumothorax despite small bore chest tube in place. Small amount of pneumomediastinum. CXR 04/21: Still with L pneumothorax and subcutaneous emphysema. Large bore chest tube in place. Assessment and Plan: Pulmonary End stage COPD on 3L home O2. Continue Breo and duonebs. Has been referred for lung transplant evalbut declined due to finances and ongoing occasional smoking. The talc pleurodesis is not completelyprohibitive but makes transplant technically very challenging were he ever to be a better candidate. 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 Improved with cherst tube Left secondary spontaneous pneumothorax with tension physiology. Air leak did not resolve with conservative management and now s/p talc pleurodesis 04/20. Chest tube management per surgery. Completed 7 days ceftriaxone for ? Pneumonia, last dose 04/23. Pulmonary service will sign off at this time, please call with additional questions. Clay Farmer MD Pulmonary and Critical Care Medicine [facility] Office: [phone] * Alex Santana PA-C - 04/24/2023 9:[address] SURGERY PROGRESS NOTE S/p Thoracotomy, bleb resection, spontaneous PTX POD # 4 SUBJECTIVE Patient found resting in bed, Currently Sinus Tachy HR 100s. SBP 120-130s. PTX on CXR this am is unchanged. Pain increased this AM, Chest tube found kinked. Dressings redressed. Crepitus still present on left side. Pain is biggest issue today. OBJECTIVE Temp (24hrs), Av ??F (36.7 ??C), Min:98 ??F (36.7 ??C), Max:98.1 ??F (36.7 ??C) Weight: 78.5 kg (173 lb) BP 131/81 Pulse (!) 101 Temp 98 ??F (36.7 ??C) Resp 20 Ht 6' (1.829 m) Wt 78.5 kg (173 lb) SpO2 94% BMI 23.46 kg/m?? Wounds: Clean, dry and intact. Rhythm:tachycardia, regular rhythm Chest Tube #1 Left Pleural-Chest Tube Output (ml): 20cc last 24 hours CXR: 04/24 Left apical PTX unchanged, subq emphysema present Breath sounds: diminished in left apical Abdominal:Soft non-tender Pain: mild Worse with movement, controlled when resting. Added Robaxin PRN UOP:300 cc charted last 24 hours Recent Labs Recent Labs 04/22/23 0444 04/22/23 1638 04/23/23 0434 04/23/23 1616 SODIUM -- -- 136 -- POTASSIUM 4.6 -- 4.3 -- MAGNESIUM 1.6 < > 1.6 1.5* BUNUREANRO -- -- 10 -- CREATININE 0.95 -- 0.69* -- GLUCOSE -- -- 99 -- HEMOGLOBIN -- -- 11.2* -- WBC -- -- 13.9* -- PLATELETCT -- -- 322 -- < > = values in this interval not displayed. ASSESSMENT/PLAN S/P S/p Thoracotomy, bleb resection, spontaneous PTX Pulmonary toilet - encourage IS / wean 02 Post-op Blood sugar- transition to SSi as per Pharm D Chest Tubes - No Airleak today, will attempt waterseal trial today, repeat CXR this PM Weight/Volume status Diuresis Cr 0.95, no lasix Pain - Lidocaine patches, Robaxin, Oxy Smoking status - current smoker Disposition: Continue Intermediate cares, Waterseal Trial Alex Santana PA-C/ [facility] Cardiothoracic Surgeons Pager [phone] * Ghazal Tan MD - 04/24/2023 8:16 AM CDT Images from the original note were not included. HOSPITALIST DIVISION PROGRESS NOTE Brief Summary: This is a 53 year old man with end stage COPD on 3L home O2, has been referred to [facility] for lung transplant eval but declined due to finances and ongoing occasional smoking. Admitted 04/15 for tension pneumothorax, persistent air leak despite conservative management, now s/p VATS 04/[address] Tarango. No obvious target for stapling, so talc pleurodesis was done. Transferred out of the ICU on 04/21/2023. ASSESSMENT/PLAN Left sided pneumothorax secondary to COPD, failed conservative management, now s/p VATS with talc pleurodesis on 04/20 Acute on chronic hypoxic respiratory failure due to PTX Presumed pneumonia End-stage COPD on [address] oxygen CT surgery following and appreciate their assistance Chest tube management per CT, trial of waterseal today then repeat CXR this afternoon Completed 7 days of IV rocephin on 04/23 CXR with left apical PTX and left basilar atelectasis unchanged Continue supplemental oxygen as needed to keep SpO2 above 88-90%, currently on 4 liters Continue multimodal pain regimen Abdominal pain of unclear etiology, improving Patient developed left upper quadrant pain on 04/[address] A/P negative for acute findings. He was started on scheduled bowel regimen, scheduled simethicone and IV PPI. Abdominal pain improved and had several BM Continue bowel regimen, IV PPI and scheduled simethicone Sinus tachycardia Likely PTX, pneumonia and pain Continue to monitor Telemetry Leukocytosis, improving Likely stress demargination after surgery Monitor for now CODE STATUS:Full code NUTRITION: Regular diet ACCESS: PIV DVT PROPHYLAXIS: SCD GI PROPHYLAXIS: IV PPI NURSING COMMUNICATION: Bedside rounding completed with the nurse. FAMILY COMMUNICATION: No family was present in room/updated family over the phone DISCHARGE PLANNING: Per thoracic surgery Ghazal Tan MD [facility] Medicine Available through [employer] 8:00am-6:00 pm CHIEF COMPLAINT: Left-sided PTX failed conservative management, now s/p VATS with talc pleurodesis SUBJECTIVE Patient states he had moderate chest pain at insertion site overnight and was uncomfortable. Difficult pain control.Chest tube was found kinked this morning per CTS OBJECTIVE BP 131/81 Pulse (!) 111 Temp 98.1 ??F (36.7 ??C) Resp 18 Ht 6' (1.829 m) Wt 78.5 kg (173 lb) SpO2 96% BMI 23.46 kg/m?? Intake/Output Summary (Last 24 hours) at 04/24/2023 0816 Last data filed at 04/24/2023 0600 Gross per 24 hour Intake 1989.98 ml Output 320 ml Net 1669.98 ml GENERAL APPEARANCE: He is awake, alert and in no acute distress. Chronically ill-appearing HEENT: Head - Normocephalic, atraumatic. NC in place Eyes - Normal lids and conjuntivae, NECK: Supple RESPIRATORY: Diminished breath sounds, CT in place with small air leak CARDIOVASCULAR: Normal S1, normal S2, regular rhythm, without murmur. GASTROINTESTINAL: Soft, non-tender, normal bowel sounds. HEME/LYMPH/IMMUNOLOGIC: No unusual bleeding or bruising. SKIN: Intact, warm, dry. No rashes or lesions. No mottling. NEUROLOGIC: alert and oriented, moves all extremities. Non-focal exam. EXTREMITIES: No edema. Results for orders placed or performed during the hospital encounter of 04/15/23 (from the past 24 hour(s)) Magnesium Result Value Ref Range Magnesium 1.5 (L) 1.6 - 2.6 mg/dL Magnesium Result Value Ref Range Magnesium 2.0 1.6 - 2.6 mg/dL Potassium, Serum Result Value Ref Range POTASSIUM 4.6 3.4 - 5.1 mmol/L Ghazal Tan MD * Ghazal Tan MD - 04/23/2023 8:32 AM CDT Images from the original note were not included. HOSPITALIST DIVISION PROGRESS NOTE Brief Summary: This is a 53 year old man with end stage COPD on 3L home O2, has been referred to [facility] for lung transplant eval but declined due to finances and ongoing occasional smoking. Admitted 04/15 for tension pneumothorax, persistent air leak despite conservative management, now s/p VATS 04/[address] Tarango. No obvious target for stapling, so talc pleurodesis was done. Transferred out of the ICU on 04/21/2023. ASSESSMENT/PLAN Left sided pneumothorax secondary to COPD, failed conservative management, now s/p VATS with talc pleurodesis on 04/20 Acute on chronic hypoxic respiratory failure due to PTX Presumed pneumonia End-stage COPD on [address] home oxygen CT surgery following and appreciate their assistance Chest tube management per CTS , planning for waterseal and clamping trial tomorrow per CTS Continue IV rocephin with last dose today, total of 7 day course CXR today with left apical PTX and left lowe lobe atelectasis unchanged Continue supplemental oxygen as needed to keep SpO2 above 88-90%, currently on 4 liters Continue multimodal pain regimen Abdominal pain of unclear etiology Patient developed left upper quadrant pain overnight. CT A/P negative for acute findings. He was started on laxative Continue bowel regimen and scheduled simethicone Added IV pantoprazole Monitor for now Sinus tachycardia Likely PTX, pneumonia and pain Continue to monitor Telemetry Continue mIVF Leukocytosis, improving Likely stress demargination after surgery. White count trending down from 16.9--->13.9 Monitor for now Blood culture collected today per CTS CODE STATUS:Full code NUTRITION: Regular diet ACCESS: PIV DVT PROPHYLAXIS: SCD GI PROPHYLAXIS: Not indicated NURSING COMMUNICATION: Bedside rounding completed with the nurse. FAMILY COMMUNICATION: Family was present in room DISCHARGE PLANNING: Per thoracic surgery Ghazal Tan MD [facility] Medicine Available through [employer] 8:00am-6:00 pm CHIEF COMPLAINT: Left-sided PTX failed conservative management, now s/p VATS with talc pleurodesis SUBJECTIVE No acute events overnight. Patient states he still has moderate abdominal pain. OBJECTIVE BP 130/88 Pulse (!) 104 Temp 97.8 ??F (36.6 ??C) Resp 20 Ht 6' (1.829 m) Wt 78.5 kg (173 lb) SpO2 98% BMI 23.46 kg/m?? Intake/Output Summary (Last 24 hours) at 04/23/2023 0832 Last data filed at 04/23/2023 0625 Gross per 24 hour Intake 2494.72 ml Output 1445 ml Net 1049.72 ml GENERAL APPEARANCE: He is awake, alert and in no acute distress. Chronically ill-appearing HEENT: Head - Normocephalic, atraumatic. NC in place Eyes - Normal lids and conjuntivae, NECK: Supple RESPIRATORY: Diminished breath sounds, CT in place with no air leak CARDIOVASCULAR: Normal S1, normal S2, regular rhythm, tachycardia HEME/LYMPH/IMMUNOLOGIC: No unusual bleeding or bruising. SKIN: Intact, warm, dry. No rashes or lesions. No mottling. NEUROLOGIC: alert and oriented, moves all extremities. Non-focal exam. EXTREMITIES: No edema. Results for orders placed or performed during the hospital encounter of 04/15/23 (from the past 24 hour(s)) Magnesium Result Value Ref Range Magnesium 2.1 1.6 - 2.6 mg/dL Basic Metabolic Profile Magnesium Result Value Ref Range SODIUM 136 136 - 145 mmol/L POTASSIUM 4.3 3.4 - 5.1 mmol/L CHLORIDE 95 (L) 98 - 108 mmol/L CARBON DIOXIDE 37 (H) 20 - 31 mmol/L BUN (UREA NITRO) 10 9 - 23 mg/dL CREATININE 0.69 (L) 0.73 - 1.18 mg/dL EST GFR (CKD-EPI) >60.00 >60.00 mL/min/1.73m2 GLUCOSE 99 74 - 106 mg/dL CALCIUM, SERUM 9.4 8.7 - 10.4 mg/dL ANION GAP 4.0 0.0 - 15.0 mmol/L Magnesium 1.6 1.6 - 2.6 mg/dL CBC / DIFF Result Value Ref Range WBC 13.9 (H) 4.3 - 10.8 K/uL RBC 3.94 (L) 4.60 - 6.20 M/uL HEMOGLOBIN 11.2 (L) 14.0 - 18.0 gm/dL HEMATOCRIT 35.1 (L) 40.0 - 54.0 % MCV 89 80 - 100 fL MCH 28 27 - 33 pg MCHC 32 (L) 33 - 36 gm/dL RDW 12.3 11.5 - 14.5 % PLATELET COUNT 322 150 - 400 K/UL MPV 10.2 6.5 - 12 fL PMN % 72.4 % IG% 1.1 (H) <=1.0 % LYMPH % 9.0 % MONO % 11.5 % EOS % 5.6 % BASO % 0.4 % PMN ABSOLUTE 10.09 (H) 1.80 - 7.80 K/uL IG ABSOLUTE 0.15 (H) 0.00 - 0.00 K/uL LYMPH ABSOLUTE 1.25 1.00 - 4.00 K/uL MONO ABSOLUTE 1.61 (H) 0.00 - 1.00 K/uL EOS ABSOLUTE 0.78 (H) 0.00 - 0.45 K/uL BASO ABSOLUTE 0.06 0.00 - 0.20 K/uL NUCL RBC % 0.0 0.0 - 0.0 /100 WBC NUCL RBC ABSOLUTE 0.00 0.00 - 0.00 K/uL Ghazal Tan MD * Alex Santana PA-C - 04/23/2023 8:[address] SURGERY PROGRESS NOTE S/p Thoracotomy, bleb resection, spontaneous PTX POD # 3 SUBJECTIVE Patient found resting in chair, Feels a little worse today, low energy, Currently Sinus Tachy HR 100s. SBP 130s. Air leak resolved, crepitus present around chest tube sitd. CXR pending. Will redress chest tubes. Keep tubes in today. Possible waterseal, clamping trial tomorrow. Continue continuous suction. OBJECTIVE Temp (24hrs), Av.8 ??F (36.6 ??C), Min:97.7 ??F (36.5 ??C), Max:97.8 ??F (36.6 ??C) Weight: 78.5 kg (173 lb) BP 130/88 Pulse (!) 104 Temp 97.8 ??F (36.6 ??C) Resp 20 Ht 6' (1.829 m) Wt 78.5 kg (173 lb) SpO2 98% BMI 23.46 kg/m?? Wounds: redressed today, crepitus present Rhythm:tachycardia, regular rhythm Chest Tube #1 Left Pleural-Chest Tube Output (ml): 140cc last 24 hours CXR: 04/23 Left apical PTX unchanged Breath sounds: diminished in left apical Abdominal:Soft non-tender Pain: mild Worse with movement, controlled when resting. Added Robaxin PRN UOP:1285 cc out last 24 hours Recent Labs Recent Labs 04/20/23 1155 04/21/23 0513 04/21/23 1643 04/22/23 0444 04/22/23 1638 04/23/23 0434 SODIUM 135* -- -- -- -- 136 POTASSIUM 4.9 5.1 -- 4.6 -- 4.3 MAGNESIUM 1.6 1.9 < > 1.6 2.1 1.6 BUNUREANRO 15 -- -- -- -- 10 CREATININE 0.74 0.68* -- 0.95 -- 0.69* GLUCOSE 122* -- -- -- -- 99 HEMOGLOBIN 13.7* 13.8* -- -- -- 11.2* WBC 16.9* -- -- -- -- 13.9* INR 1.0 -- -- -- -- -- PLATELETCT 353 -- -- -- -- 322 < > = values in this interval not displayed. ASSESSMENT/PLAN S/P S/p Thoracotomy, bleb resection, spontaneous PTX Pulmonary toilet - encourage IS / wean 02 Post-op Blood sugar- transition to SSi as per Pharm D Chest Tubes - following, airleak resolved. continue to monitor, continuous suction with ambulation Weight/Volume status Diuresis Cr 0.69, making ok urine, no lasix Pain - Added Robaxin PRN Smoking status - current smoker Disposition: Continue Intermediate cares, monitor for reoccurance of airleak, DC in a few days. Alex Santana PA-C/Dr. [facility] Cardiothoracic Surgeons Pager [phone] * China Quiroz, RN - 04/22/2023 9:08 AM CDT Med-Surg Care Progression Note Type: Shift to shift summary Length of stay: 7 days Code Status: Full Code Primary Problem: Spontaneous pneumothorax, persistent air leak Hx: End-stage COPD (BL O2 3L). Referred to [facility] for lung transplant eval but declined due to finances and ongoing occasional smoking. Post-surgical leukocytosis. 04/20: TALC pleurodesis Summary: Goal: pain management and mobility progression. Pt denies passing gas last night and startof shift. shift superintendent caustic cresylate gave miralax, noted hypoactive bowel sounds, CT abd done (-). Active bowel sounds for start of shift assessment. PRN toradol added. PRN methocarbamol added. C/o spontaneous episodes of pain to GAGE/LLQ and CT site, lasting a few seconds. CXR done, slight pneumo. Air leak int. +1 at start of shift. Back to continuous +1. F- Feeding & Fluids: Regular diet; scheduled supplements. Low PO intake. A- Analgesic & Anticoagulation: Comfort Goal: Numeric, Verbal, Faces: 4 - Moderate Analgesic Pain r/t Chest tube - 4x daily Robaxin & PRN Oxy, dilaudid, tylenol, lidocaine patch. Pt stateslidocaine patch not very helpful & pain worse with movement/activity/swallowing. Anticoagulation/DVT prevention & plan SCDs S- Skin: Total Renetta Score: 19: Refer to flowsheets for renetta and skin documentation and related interventions. T- Telemetry: Rhythm: Sinus Rhythm Ectopy: None HR 100-110s this shift. E- Emotional & Neuro: Participating in cares and flat affect Neuro Alert and Oriented R- Respiratory: Uses home O2/at baseline 4L NC. Encouraging IS use. H- Head OUT of Bed & Activity: Activate Fall Alert? (Enter 1 or 0): 1 Ambulating Ax1 for chest tubes/lines/IV pole - not OOB this shift. Early mobility Phases 1-4: Phase 1: Bed Mobility U- Urologic/bowel: Size: Medium (04/19/2023 10:44 AM) Voiding via urinal and Bowel regimen no BM, but passing flatus. G- Glycemic Control: Not applicable T- Treatment: Chest tube management (RN to order daily cxr), ongoing pain management, IV abx, encouraging PO intake and increased activity, and Labs K/Mg protocol. Per Ctsx - If pt continues to have air leak, may need thoracotomy (possibly Monday). I- Invasive Devices: PIV x1 Chest tube -20 sxn (NO water seal). Ongoing continuous/intermittent +1 air leak, no crepitus. D- Discharge: TBD * Ghazal Tan MD - 04/22/2023 8:49 AM CDT Images from the original note were not included. HOSPITALIST DIVISION PROGRESS NOTE Brief Summary: This is a 53 year old man with end stage COPD on 3L home O2, has been referred to [facility] for lung transplant eval but declined due to finances and ongoing occasional smoking. Admitted 04/15 for tension pneumothorax, persistent air leak despite conservative management, now s/p VATS 04/[address] Tarango. No obvious target for stapling, so talc pleurodesis was done. Transferred out of the ICU on 04/21/2023. ASSESSMENT/PLAN Left sided pneumothorax secondary to COPD, failed conservative management, now s/p VATS with talc pleurodesis on 04/20 Acute on chronic hypoxic respiratory failure due to PTX Presumed pneumonia End-stage COPD on [address] CT surgery following and appreciate their assistance Chest tube management per CT Continue IV rocephin with plan for 7 day course, last dose on 04/23 CXR with left apical PTX unchanged Continue supplemental oxygen as needed to keep SpO2 above 88-90% Continue multimodal pain regimen Abdominal pain of unclear etiology Patient developed left upper quadrant pain overnight. CT A/P negative for acute findings. He was started on laxative Continue bowel regimen Added scheduled simethicone Monitor for now Sinus tachycardia Likely PTX, pneumonia and pain Continue to monitor Telemetry Continue mIVF Leukocytosis Likely stress demargination after surgery Monitor for now CODE STATUS:Full code NUTRITION: Regular diet ACCESS: PIV DVT PROPHYLAXIS: SCD GI PROPHYLAXIS: Not indicated NURSING COMMUNICATION: Bedside rounding completed with the nurse. FAMILY COMMUNICATION: No family was present in room/updated family over the phone DISCHARGE PLANNING: Per thoracic surgery Ghazal Tan MD [facility] Medicine Available through [employer] 8:00am-6:00 pm CHIEF COMPLAINT: Left-sided PTX failed conservative management, now s/p VATS with talc pleurodesis SUBJECTIVE Patient developed LUQ pain overnight and workup unremarkable. He reports his chest pain is better today, but still has LUQ pain. He feels slight better. OBJECTIVE BP 123/87 Pulse (!) 108 Temp 98.7 ??F (37.1 ??C) Resp 22 Ht 6' (1.829 m) Wt 78.5 kg (173 lb) SpO2 92% BMI 23.46 kg/m?? Intake/Output Summary (Last 24 hours) at 04/22/2023 0850 Last data filed at 04/22/2023 0627 Gross per 24 hour Intake 2583.61 ml Output 1310 ml Net 1273.61 ml GENERAL APPEARANCE: He is awake, alert and in no acute distress. Chronically ill-appearing HEENT: Head - Normocephalic, atraumatic. NC in place Eyes - Normal lids and conjuntivae, NECK: Supple RESPIRATORY: Diminished breath sounds, CT in place with small air leak CARDIOVASCULAR: Normal S1, normal S2, regular rhythm, without murmur. GASTROINTESTINAL: Soft, non-tender, normal bowel sounds. HEME/LYMPH/IMMUNOLOGIC: No unusual bleeding or bruising. SKIN: Intact, warm, dry. No rashes or lesions. No mottling. NEUROLOGIC: alert and oriented, moves all extremities. Non-focal exam. EXTREMITIES: No edema. Results for orders placed or performed during the hospital encounter of 04/15/23 (from the past 24 hour(s)) Magnesium Result Value Ref Range Magnesium 1.9 1.6 - 2.6 mg/dL Potassium, Serum Result Value Ref Range POTASSIUM 4.6 3.4 - 5.1 mmol/L Magnesium Result Value Ref Range Magnesium 1.6 1.6 - 2.6 mg/dL Creatinine eGFR Result Value Ref Range CREATININE 0.95 0.73 - 1.18 mg/dL EST GFR (CKD-EPI) >60.00 >60.00 mL/min/1.73m2 Ghazal Tan MD * Alex Santana PA-C - 04/22/2023 8:[address] SURGERY PROGRESS NOTE S/p Thoracotomy, bleb resection, spontaneous PTX POD # 2 SUBJECTIVE Patient found resting in bed, Currently Sinus Tachy HR 100s. SBP 120-130s. PTX on CXR this am is unchanged. Airleak is intermittent. OBJECTIVE Temp (24hrs), Av.1 ??F (36.7 ??C), Min:97.5 ??F (36.4 ??C), Max:98.7 ??F (37.1 ??C) Weight: 78.5 kg (173 lb) BP 123/87 Pulse (!) 108 Temp 98.7 ??F (37.1 ??C) Resp 22 Ht 6' (1.829 m) Wt 78.5 kg (173 lb) SpO2 92% BMI 23.46 kg/m?? Wounds: Clean, dry and intact. Rhythm:tachycardia, regular rhythm Chest Tube #1 Left Pleural-Chest Tube Output (ml): 130cc last 24 hours CXR: 04/22 Left apical PTX unchanged Breath sounds:Bilateral expiratory wheezing, diminished in left apical Abdominal:Soft non-tender Pain: mild Worse with movement, controlled when resting. Added Robaxin PRN UOP:1225 cc out last 24 hours Recent Labs Recent Labs 04/20/23 1155 04/21/23 0513 04/21/23 1643 04/22/23 0444 SODIUM 135* -- -- -- POTASSIUM 4.9 5.1 -- 4.6 MAGNESIUM 1.6 1.9 1.9 1.6 BUNUREANRO 15 -- -- -- CREATININE 0.74 0.68* -- 0.95 GLUCOSE 122* -- -- -- HEMOGLOBIN 13.7* 13.8* -- -- WBC 16.9* -- -- -- INR 1.0 -- -- -- PLATELETCT 353 -- -- -- ASSESSMENT/PLAN S/P S/p Thoracotomy, bleb resection, spontaneous PTX Pulmonary toilet - encourage IS / wean 02 Post-op Blood sugar- transition to SSi as per Pharm D Chest Tubes - following, intermittent Airleak, continue to monitor, continuous suction with ambulation Weight/Volume status Diuresis Cr 0.95, making ok urine, no lasix Pain - Added Robaxin PRN Smoking status - current smoker Disposition: Continue Intermediate cares, monitor NORRIS rehman in a few days pending resolution of airleak. Alex Santana PA-C/Dr. [facility] Cardiothoracic Surgeons Pager [phone] * Elizabeth Nance RN - 04/22/2023 6:29 AM CDT Med-Surg Care Progression Note Type: Shift to shift summary Length of stay: 7 days Code Status: Full Code Primary Problem: Spontaneous pneumothorax, persistent air leak Hx: End-stage COPD (BL O2 3L). Referred to [facility] for lung transplant eval but declined due to finances and ongoing occasional smoking. Post-surgical leukocytosis. 04/20: TALC pleurodesis Summary: Ongoing pain management. Pt's only sched pain control is Robaxin; previous order for tylenol that was discontinued, unknown reasoning. Discussed option of adding scheduled tylenol with provider to assist with consistent pain management, order placed for PRN tylenol. Air leak continues Initially +1 continuous/intermittent at beginning of shift; 40mLs out - air leakappears intermittent +1 this AM. -Pt expressed discomfort on his GAGE&LQ, describing discomfort as feeling of gas and separate from chest tube incisional pain. Intermittent but frequent, denied N/V, worse when eating/drinking/swallowing. Hypoactive bowel sounds in all quadrants, stomach semifirm and distended, low appetite, lastdocumented BM on 04/19, not passing gas. Provider notified - STAT abdomen/pelvis CT ordered - unremarkable bowel. Miralax added. See crosscover note. F- Feeding & Fluids: Regular diet; scheduled supplements. Low PO intake. A- Analgesic & Anticoagulation: Comfort Goal: Numeric, Verbal, Faces: 4 - Moderate Analgesic Pain r/t Chest tube - 4x daily Robaxin & PRN Oxy, dilaudid, tylenol, lidocaine patch. Pt stateslidocaine patch not very helpful & pain worse with movement/activity. Anticoagulation/DVT prevention & plan SCDs S- Skin: Total Renetta Score: 19: Refer to flowsheets for renetta and skin documentation and related interventions. T- Telemetry: Rhythm: Sinus Tachycardia Ectopy: None HR 100-110s this shift. E- Emotional & Neuro: Participating in cares and flat affect Neuro Alert and Oriented R- Respiratory: Uses home O2/at baseline 3L NC. Encouraging IS use. H- Head OUT of Bed & Activity: Activate Fall Alert? (Enter 1 or 0): 1 Ambulating Ax1 for chest tubes/lines/IV pole - not OOB this shift. Early mobility Phases 1-4: Phase 4: Ambulation U- Urologic/bowel: Size: Medium (04/19/2023 10:44 AM) Voiding via urinal and Bowel regimen needs postop BM, not passing gas, hypoactive bowel sounds; PRNSenna G- Glycemic Control: Not applicable T- Treatment: Chest tube management (RN to order daily cxr), ongoing pain management, IV abx, encouraging PO intake and increased activity, and Labs K/Mg protocol. Per Ctsx - If pt continues to have air leak, may need thoracotomy. I- Invasive Devices: PIV x1 Chest tube -20 sxn (NO water seal). Ongoing continuous/intermittent +1 air leak, no crepitus. D- Discharge: TBD * Viraj Kumar MD - 04/22/2023 4:26 AM CDT Patient developed pain in the LUQ of his abdomen tonight, previously just had pain higher up in left chest. Abdominal pain much worse after swallowing something. Belching frequently. No vomiting. Reports he is not passing gas and has not had a bowel movement for a few days. Moderate TTP in LUQ of abdomen on exam. Mildly distended abdomen. No peritoneal signs. CT completed tonight. No evidence of obstruction or other acute intra-abdominal findings. Stool softeners ordered. Viraj Kumar MD [facility] Medicine * Verito Pereira RN - 04/21/2023 9:00 PM CDT Med-Surg Care Progression Note Type: Shift to shift summary Length of stay: 6 days Code Status: Full Code Primary Problem: Tension pneumothorax, persistent air leak, s/p VATS talc pleurodesis 04/20. End-stage COPD, 3L home O2 at baseline. Referred to [facility] for lung transplant eval but declined due to finances and ongoing occasional smoking. Post-surgical leukocytosis. Summary:Transferred to today. Pt continues to have a persistent air leak in chest tube. High levels of pain around CT site - managed with PRN dilaudid x4, PRN Oxy x1, scheduled Robaxin. Pt reported feeling heartburn while eating - PRN zofran given x1 with good relief. PIV replaced d/t leaking.Pt tachycardic through shift (110s-120s) - MD velázquez, LR increased to 100mL/Hr. Pt receiving Rocephin antibiotics Q24H. F- Feeding & Fluids: Tolerating regular diet, low intake d/t pain. Encouraged Pt to drink Boostsupplements. A- Analgesic & Anticoagulation: Comfort Goal: Numeric, Verbal, Faces: [address] pain 4-8, managed with PRNs. Anticoagulation/DVT prevention & plan SCDs S- Skin: Renetta Subcategory Concern(s): Sensory Perception: No Impairment Moisture: Rarely Moist Activity: Chairfast Activity Interventions: Appropriate surface in while in chair Nutrition: Probably Inadequate Nutrition Interventions: Dietary supplement and Calorie intake Mobility: Very Limited Mobility Interventions: Low air loss support Friction and Shear: No Apparent Problem Total Renetta Score: 17: Assist of [address], IV, Pt steady on feet. T- Telemetry: Rhythm: Sinus Tachycardia Ectopy: None E- Emotional & Neuro: Participating in cares and flat affect Neuro Alert and Oriented R- Respiratory: Uses home O2/at baseline 3L NC H- Head OUT of Bed & Activity: Activate Fall Alert? (Enter 1 or 0): 1 Ambulating AO1 for chest tubes, IV pole. Pt fatigues with minimal exertion. Early mobility Phases 1-4: Phase 4: Ambulation U- Urologic/bowel: Size: Medium (04/19/2023 10:44 AM) Voiding urinal, mandy-colored urine. Monitor fluid status. G- Glycemic Control: Not applicable T- Treatment: K/Mg protocol, MIVF, chest tube management, pain control, nausea control I- Invasive Devices: PIV x1 D- Discharge: Discharge criteria not met, chest tube management ongoing * Verito Pereira RN - 04/21/2023 4:00 PM CDT Carl Prasad [id number] P. Transfer A. Transferred at 1530 to A4 unit. Transported via bed with O2 and IV Pump escorted by nurse. I. Notified no family member of transfer. Patient information and safety items addressed included how to call for help, name of assigned healthcare advisory services manager, Patient Information booklet, Handwashing, Respiratory Hygiene, How to Call a Response Team, initial physician orders, hourly rounding procedures, belongings checklist, unit and plan of care. R. Patient expressed understanding of information. . * Jalil Veliz - 04/21/2023 12:35 PM CDT Summary: High Density Press Laborer visit while rounding this unit to provide comfort and support to this patient Daniel. Henry states that he has moved to ICU after his surgery and that it isn't working. He states that he should know more by Monday. We talked about the anxiousness of waiting. Carl was eating lunch but welcomed me back anytime. Spiritual Intervention: I provided this patient and family with a comforting and reassuring presence, and words of hope andassurance. Plan: Chaplains will continue to be available to support this patient and family per need or request by paging [phone] or through [place]. Rev. Chaplain Zambrano M.Div. 04/21/2023 1235 pm * Anshul Yarbrough MD - 04/21/2023 10:36 AM CDT NITS ICU Progress Note Summary: Carl Prasad is a 53 year old man with end stage COPD on 3L home O2, has been referred to [facility] for lung transplant eval but declined due to finances and ongoing occasional smoking. Admitted 04/15 for tension pneumothorax, persistent air leak, now s/p VATS 04/[address] Tarango. No obvious target for stapling, so talc pleurodesis was done. New Events: Having a lot of pain at chest tube site, lidocaine patch ordered. Still with small continuous air leak. Up in chair, ate breakfast, stable for transfer to floor. Physical Exam: Vitals reviewed. 93% on baseline 3L. HR 110s, afebrile, SBP 120s. General: Chronically ill appearing, breathing comfortably on 3L Heart: Tachy, regulra Lungs: Diminished, no wheezes Abdomen: Soft non tender Chest: L chest tube in place with small continuous air leak noted, set to -20 suction. Ext: Intact distal pulses, no edema Skin: No rashes or lesions Neuro: Grossly normal Results: I personally reviewed pertinent labs, imaging, and other diagnostic tests, which are notable for: CT 04/17 reviewed by me. Severe emphysema with moderate pneumothorax despite small bore chest tube in place. Small amount of pneumomediastinum. CXR 04/21: Still with L pneumothorax and subcutaneous emphysema. Large bore chest tube in place. Assessment and Plan: Pulmonary End stage COPD on 3L home O2. Continue Breo and duonebs. Has been referred for lung transplant evalbut declined due to finances and ongoing occasional smoking. The talc pleurodesis is not completelyprohibitive but makes transplant technically very challenging were he ever to be a better candidate. Acute on chronic hypoxic respiratory failure due to tension pneumothorax Left secondary spontaneous pneumothorax with tension physiology. Air leak did not resolve with conservative management and now s/p talc pleurodesis 04/20. Chest tube management per surgery. Still has an air leak, hopefully will resolve after pleurodesis but if it doesn't, he'll need to go back to OR for thoracotomy. Getting 7 days ceftriaxone for ? Pneumonia, last dose 04/23. CV / Hemodynamics: Sinus tachycardia. Hopefully will improve with pain control. Lidocaine patch ordered 04/21. Renal / Fluids / Electrolytes: Chronic respiratory acidosis with metabolic compensation. Renal function normal no other issues. Avoid BiPAP due to the pneumothorax. ID / Sepsis / Severe Sepsis: On ceftriaxone for ? Pneumonia. Neuro: No issues Heme/Onc: Leukocytosis, likely stress demargination after surgery. Hgb, Plt normal. GI / Nutrition: Tolerating diet. Endo: No h/o DM. Glucose normal here. Prophylaxis: Resume DVT ppx per surgery. Sedation / Analgesia: Pain control per surgery. I added lidocaine patch today. Lines and Catheters: PIV Code Status: Full code Family Discussion: With the patient this morning. Also discussed with Dr. Tarango. He is stable for transfer to the floor. Since surgery is managing the chest tube, pulmonary will not plan to see him over the weekend if he is transferred. Please call / page with questions. 35 minutes today, non critical care. Anshul Yarbrough MD Pulmonary and Critical Care Medicine [facility] Pager: [phone] * August Tarango MD - 04/21/2023 7:43 AM CDT Cardiovascular and Thoracic Surgery Progress Note Assessment/Plan: Sitting in chair. Continuous air leak noted. No crepitus on exam. Chest x-ray shows that lung is expanded small pneumo at the base. Patient has extensive emphysema noted. No obvious air leak noted at the time of surgery. 8 g of talc were instilled into the chest cavity. Patient needs to stay on suction at -20 in hopes that the scarring will take place and the air leak resolves. If the patient continues to have a moderate, brisk air leak after several days, he would require a thoracotomy for extensive stapling of blebs. I discussed that fully with the patient this morning. Hopefully with time the air leak will resolve as the scarring from pleurodesis takes place. Patient could be transferred to the floor. Intake/Output Summary (Last 24 hours) at 04/21/2023 0743 Last data filed at 04/21/2023 0600 Gross per 24 hour Intake 2218.76 ml Output 1586 ml Net 632.76 ml Invalid input(s): HCT, HGB, CR Vitals: 04/21/23 0100 04/21/23 0200 04/21/23 0400 04/21/23 0600 BP: 122/77 107/73 Pulse: (!) 121 (!) 111 Resp: 15 (!) 9 Temp: 98 ??F (36.7 ??C) SpO2: 92% 96% Weight: 78.5 kg (173 lb 1 oz) Height: * Elvi Lewis RN - 04/21/2023 6:53 AM CDT Problem: Falls/Injury-Risk of Goal: Absence of Falls/Injury Outcome: Met this shift Note: Up to chair with assist of two. Unsteady on feet. Problem: Pain Goal: Exhibits reduction in pain to a level of acceptable comfort Outcome: Ongoing Note: Patient rates pain at 8/10, only partially relieved by IV dilaudid and PO oxycodone. Problem: Chest Tube Management Goal: Maintain adequate oxygenation related to chest tube placement Outcome: Met this shift Note: Patient on 3 LPM via NC, which is patient's baseline. Critical Care Progression Note Type: Shift to shift summary Length of stay: 6 days Code Status: Full Code Primary Problem: Spontaneous pneumothorax Summary: ACM. CT Surgery. PT/OT F- Feeding: Encourage PO, clear liquids diet Fluids: Continue IVF LR at 50 ml/hr A- Analgesic: Comfort Goal: Numeric, Verbal, Faces: 3 Difficult pain management PRN oxycodone and IV dilaudid Anticoagulation & DVT prophylaxis: MD order not indicated S- Skin: Renetta Subcategory Concern(s): Sensory Perception: No Impairment Moisture: Occasionally Moist Moisture Interventions: Minimize briefs - no briefs with elena, Minimize chux/linen layers, FMS, Keep folds dry/interdry/nystatin, and Change gown/bath/hygiene Activity: Bedfast Activity Interventions: Reposition every 2 hours, Low air loss mattress, and Safer bundle Nutrition: Probably Inadequate Nutrition Interventions: Encourage PO Mobility: Very Limited Mobility Interventions: Turning every 2 hrs, TAPS, and Low air loss support Friction and Shear: Potential Problem Friction and Shear Interventions: Protect heels and elbows from friction/slide Total Renetta Score: 14: Left clavicle incision, covered; left chest tubes. T- Telemetry: Rhythm: Sinus Tachycardia Rhythm sinus tachycardia baseline E- Emotional: Appropriate & participating in cares Neuro: Vincent Agitation Sedation Scale (RASS): 0 Alert and Calm; CAM-ICU Score (Calculated): Negative Alert and Oriented R- Respiratory: Uses home O2/at baseline 3 LPM H- Head OUT of Bed & Activity: PROM & repositioning q2 and Early mobility protocol bed mobility Early mobility Phases 1-4: Phase 1: Bed Mobility U- Urologic (Bladder): Indwelling catheter can be discontinued when clinically appropriate Bowel: Size: Medium (04/19/2023 10:44 AM) No bowel movement this shift G- Glycemic Control: Not applicable T- Treatment: Labs on K/Mg protocol and manage pain I- Invasive Devices: PIVx2 D- Discharge: Not meeting goals for discharge or transfer Anticipated Disposition: Plan to: Unknown, to be determined * Erinn Kwok APRN, CNS - 04/20/2023 3:50 PM CDT RADIOLOGY NOTE: Patient to OR today, IR placed chest tubes have been removed. Radiology will sign off Erinn Kwok APRN-FRANCISCO [facility] Pager [phone] M-F 7am-5pm * Devin Poole RN - 04/20/2023 11:15 AM CDT P. Admission A. Condition on Admit: alert. Patient/Family Concerns: Patient expressed concern about pain relief . I. Initial Interventions included: notified MD of patient arrival, administered medication for mid chest pain, Called [facility] for patient belongings . Orientation to Unit: Patient oriented to how to call for help, name of assigned healthcare advisory services manager, belongings checklist, unit and plan of care. R. Patient expressed understanding of information.. * Sravani Chaudhary MBBS - 04/20/2023 9:12 AM CDT PROGRESS NOTE Chart reviewed CHIEF COMPLAINT: post-operative pain SUBJECTIVE: Patient seen and examined at bedside post procedure He endorsed pain from post-operative site No further complaint or concerns Review of other systems though limited but grossly at baseline. OBJECTIVE: BP (!) 145/102 Pulse (!) 110 Temp 98.1 ??F (36.7 ??C) Resp 22 Ht 6' (1.829 m) Wt 73 kg (160 lb 15 oz) SpO2 96% BMI 21.83 kg/m?? O2 Delivery Source: Nasal Cannula Wt Readings from Last 2 Encounters: 04/15/23 73 kg (160 lb 15 oz) Temp (24hrs), Av.1 ??F (36.7 ??C), Min:97.7 ??F (36.5 ??C), Max:98.3 ??F (36.8 ??C) Body mass index is 21.83 kg/m??. General Appearance: Patient is alert and oriented x3, in mild painful distress, anicteric, afebrile, acyanotic NECK: supple, No lymphadenopathy RESPIRATORY: decreased/distant breath sounds in most lung zones CARDIOVASCULAR: S1S2 heard GASTROINTESTINAL: Non-distended/Non tender, soft, bowel sounds present throughout, no masses or hepatosplenomegaly MUSCULOSKELETAL: without deformity, normal range of motion SKIN: Warm, dry, no rashes, mottling not present NEUROLOGIC: Cranial nerve II-XII intact, without any focal deficits EXTREMITIES: Moves all extremities, no clubbing, cyanosis, or edema LABS: Recent Labs 04/17/23 1024 04/18/23 0814 CREATININE -- 0.74 CALCIUMSERUM -- 9.4 SODIUM -- 139 POTASSIUM -- 4.3 CARBONDIOXI -- 39* ANIONGAP -- 1.0 WBC -- 9.4 HEMOGLOBIN -- 12.4* HEMATOCRIT -- 38.2* PLATELETCT -- 312 INR 1.0 -- GLUCOSE -- 95 PROCEDURES: Left VATS with instillation of 8 grams talc pleurodesis. IMAGING: Latest CXR: Decreased volume of left-sided pneumothorax. Small volume residual pleural gas noted inferolaterally. Additional comments: I reviewed the patient's new clinical lab test results. I reviewed the patient's medications. I reviewed the patient's new imaging test results. ASSESSMENT: 53-year-old man with PMH of chronic hypoxic respiratory failure secondary to severe COPD, provoked DVT and pulmonary embolism [not on anticoagulation who presented with shortness of breath and was found to have tension pneumothorax s/p chest tube placement with ongoing air leak. Repeat radiologic testing since chest tube placement shows progressive increase in pneumothorax. Patient had pleurodesis/VAT done today for definitive management PLAN: #Acute on chronic hypoxic respiratory failure #Left-sided tension secondary spontaneous pneumothorax S/p chest tube placement with persistent moderate left pneumothorax. S/p Left VATS with instillation of 8 grams talc pleurodesis. Postprocedure management as per CV surgery Continue oxygen therapy to maintain adequate oxygen saturation Continue empiric treatment for possible lower lobe pneumonia initiated with ceftriaxone to complete7 days therapy Optimal pain management #Severe COPD, with acute exacerbation with chronic hypoxic respiratory failure Continue DuoNeb 4 times daily + as needed as needed for shortness of breath Continuue LABA/ICS Continue oxygen therapy as stated above Monitor for respiratory distress CODE STATUS: full GI prophylaxis: diet DVT prophylaxis: SCD Restraints: none Lines: peripheral ESTRELLITA [facility] ESTRELLITA [facility] This document was created using voice recognition software and effort was taken in order to review for accuracy, though some inadvertent typographical errors may be present. * Bipin Douglas RN - 04/20/2023 6:49 AM CDT Med-Surg Care Progression Note Type: Shift to shift summary Length of stay: 5 days Code Status: Full Code Primary Problem: Spontaneous L-sided pneumothorax. PMHx: COPD. Oxygen dependent. DVT Summary:Chest tube continued to have almost continuous air leak throughout the night. Did complete HCG wipes and pre op checklist. Pt. Was sent down to pacu @ 0645 and belongings are packed up and inthe room waiting for where he will be transferred too likely A4. F- Feeding & Fluids: NPO for VATS procedure. A- Analgesic & Anticoagulation: Comfort Goal: Numeric, Verbal, Faces: 3 Analgesic Pain to L chest managed with scheduled Robaxin and PRN Oxycodone and Tylenol. Anticoagulation/DVT prevention & plan SCDs S- Skin: Renetta Subcategory Concern(s): Sensory Perception: No Impairment Moisture: Rarely Moist Activity: Walks Occasionally Activity Interventions: Reposition every 2 hours Nutrition: Adequate Nutrition Interventions: Hub Borer consult - protein/albumin assessment Mobility: Slightly Limited Mobility Interventions: Turning every 2 hrs Friction and Shear: No Apparent Problem Total Renetta Score: 20: switched back to original bed since specialty bed appeared to have mechanical issue. T- Telemetry: No tele E- Emotional & Neuro: Participating in cares Neuro Alert and Oriented R- Respiratory: On 3L NC baseline CT to -20sxn even with ambulation. Near continuous grade 1 airleak. No crepitus. Duonebs by RT Encourage IS use, reaching 1500 consistently. H- Head OUT of Bed & Activity: Activate Fall Alert? (Enter 1 or 0): 1 Ambulating Ax1 Progressive mobility Phases 5-7: Phase 5: 10 steps or more U- Urologic/bowel: Size: Medium (04/19/2023 10:44 AM) Voiding with urinal no BM this shift G- Glycemic Control: Not applicable T- Treatment: ATS procedure in AM, pain management, pulmonary following, IV abx I- Invasive Devices: PIV x1 L CT D- Discharge: Discharge criteria not met. * Kiera Pinto RN - 04/19/2023 6:45 PM CDT Med-Surg Care Progression Note Type: Shift to shift summary [id number] Length of stay: 4 days Code Status: Full Code Primary Problem: Spontaneous L-sided pneumothorax. PMHx: COPD. Oxygen dependent. DVT Summary: Intermittent airleak noted yesterday, no airleak noted overnight, but upon AM assessment near continuous grade 1 airleak noted. Initial AM CXR showed redevelopment of large ptx. Pulmonary made aware and ordered repeat CXR. 1100 CXR showed slight improvement, but pulmonary decided to get CTsurgery involved. VATS procedure scheduled for 0700 tomorrow morning (04/20). AM labs order for 0400,will still need scrub and surgical checklist complete. Pt to go down to surgery on specialty bed, anticipate transfer to A4 following procedure. F- Feeding & Fluids: Tolerating regular diet and thin liquids. Hub Borer consulted and boost supplements added. NPO at midnight for VATS procedure in AM. A- Analgesic & Anticoagulation: Comfort Goal: Numeric, Verbal, Faces: 3 Analgesic: Pain to L chest managed with scheduled Robaxin and PRN Oxycodone and Tylenol. Anticoagulation/DVT prevention & plan: SCDs S- Skin: Total Renetta Score: 20: Switched to specialty bed this evening T- Telemetry: No tele E- Emotional & Neuro: Participating in cares Neuro Alert and Oriented R- Respiratory: On 2.5L NC. CT to -20sxn even with ambulation. Near continuous grade 1 airleak. No crepitus. Duonebs by RT Encourage IS use, reaching 1500 consistently. H- Head OUT of Bed & Activity: Activate Fall Alert? (Enter 1 or 0): 1 Pt OOB with A1-A2, fairlysteady but requires assistance with suction pumps and O2 tank management. Up to chair for lunch anddinner. U- Urologic/bowel: Size: Medium (04/19/2023 10:44 AM) Voiding independently with urinal. Senna added PRN. G- Glycemic Control: Not applicable T- Treatment: VATS procedure in AM, pain management, pulmonary following, IV abx I- Invasive Devices: PIVx1, L CT D- Discharge: Home pending successful surgical course. * August Tarango MD - 04/19/2023 1:15 PM CDT REPORT TITLE: Cardiovascular Surgery Consultation Patient Name: Carl Prasad I was asked to see this patient for evaluation of ongoing air leak on left side and recurrent pneumothorax.. HPI: The patient is a 53 y.o. male who comes today for chest pain 5 days ago. The patient was seen at [place] and then transferred to [facility]. A CT scan and chest x-ray showed bilateral severe COPD with blebs and a large left pneumothorax. 2 chest tubes have been placed but the patient continues to have a brisk air leak at this time. Patient is O2 dependent and was diagnosed with severeCOPD 10 years ago.. REVIEW OF SYSTEMS: A ten-point review of systems is negative except as mentioned in the history of present illness. PHYSICAL EXAMINATION: GENERAL: The patient is alert and in no acute distress. HEENT: Pupils equal and react to light. CHEST: Clear. HEART: Regular rhythm. ABDOMEN: Soft. Without masses. EXTREMITIES: Negative for edema. MUSCULOSKELETAL: Negative for kyphoscoliosis. NEUROLOGIC: No cranial or sensory nerve dysfunction. SKIN: Warm and dry to touch. PAST MEDICAL HISTORY Past Medical History: Diagnosis Date COPD (chronic obstructive pulmonary disease) (HCC) Deep vein thrombosis (DVT) (HCC) PAST SURGICAL HISTORY Past Surgical History: Procedure Laterality Date ORTHOPEDICS CURRENT MEDS Current Facility-Administered Medications: saline FLUSH syringe 10 mL, 10 mL, Intravenous, Q8H, Emilee Griggs MD, 10 mL at saline FLUSH syringe 10 mL, 10 mL, Intravenous, PRN, Emilee Griggs MD, 10 mL at acetaminophen (TYLENOL) tablet 325-650 mg, 1-2 tablet, oral, Q4H PRN, Emilee Griggs MD, 650 mg at 04/19/23 1054 albuterol-ipratropium (conc: 3-0.5mg/3mL) (DUO-NEB) nebulizer solution 3 mL, 1 ampule, Nebulization, QID-RESPIRATORY, Emilee Griggs MD, 3 mL at 04/19/23 1120 cefTRIAXone (Rocephin) 2 g in sodium chloride 0.9 % 100 mL IV piggyback, 2 g, Intravenous, Q24H (NS), Dhaval Yao MD, Stopped at 04/19/23 1134 fluticasone 100 mcg-vilanterol 25 mcg (BREO) inhaler 1 Inhalation, 1 Inhalation, Inhalation, DAILY,Dhaval Yao MD, 1 Inhalation at 04/19/23 0822 lidocaine (LMX-4) topical cream 1 Application, 1 Application, topical, PRN, Emilee Griggs MD lidocaine / sod bicarb (buffered lidocaine) syringe for IV starts 0.1-0.3 mL, 0.1-0.3 mL, Intradermal, PRN, Emilee Griggs MD lidocaine 1% injection (conc: 10 mg/mL) 0.1-0.3 mL, 0.1-0.3 mL, Intradermal, PRN, Emilee Griggs MD melatonin tablet 3 mg, 3 mg, oral, Q BEDTIME, Pauline Rangel DO, 3 mg at 04/18/23 2207 methocarbamoL (ROBAXIN) tablet 500 mg, 500 mg, oral, QID, Emilee Griggs MD, 500 mg at 04/19/23 1229 MORphine injection (conc: 2 mg/mL) 1-2 mg, 1-2 mg, Intravenous, Q3H PRN, Pauline Rangel DO, 2 mg at 04/17/23 2215 ondansetron (ZOFRAN) injection 4-8 mg, 4-8 mg, Intravenous, Q8H PRN OR ondansetron (ZOFRAN) disintegrating tablet 4-8 mg, 4-8 mg, oral, Q8H PRN, Emilee Griggs MD oxyCODONE (immediate release) (ROXICODONE) tablet 5 mg, 5 mg, oral, Q6H PRN, Emilee Griggs MD, 5 mg at 04/19/23 0623 senna-docusate (SENNA-S) tablet 1-2 tablet, 1-2 tablet, oral, BID PRN, Sravani Chaudhary MBBS ALLERGIES/SENSITIVITIES No Known Allergies FAMILY HISTORY No family history on file. SOCIAL HISTORY Social History Socioeconomic History Marital status: Single Spouse name: Not on file Number of children: Not on file Years of education: Not on file Highest education level: Not on file Occupational History Not on file Tobacco Use Smoking status: Some Days Years: 30.00 Types: Cigarettes Smokeless tobacco: Never Tobacco comments: Stopping off/of for the last 6 months Substance and Sexual Activity Alcohol use: Not Currently Drug use: Never Sexual activity: Not on file Other Topics Concern Not on file Social History Narrative Not on file Social Determinants of Health Financial Resource Strain: Not on file Food Insecurity: Not on file Transportation Needs: Not on file Physical Activity: Not on file Stress: Not on file Social Connections: Not on file Intimate Partner Violence: Not on file Housing Stability: Not on file CONSULTATION ASSESSMENT AND PLAN/RECOMMENDATIONS: I reviewed the chest x-ray and CT scan. The patient has bilateral blebs and severe COPD. There is achest tube in place on the left and he has a continuous air leak. I would agree that the patient cornelio candidate for talc pleurodesis and stapling of bleb on the left. I discussed the procedure fully with the patient, I believe he understands would like to proceed tomorrow. Thanks for the consultation August Tarango MD * August Tarango MD - 04/19/2023 12:40 PM CDT Cardiovascular and Thoracic Surgery Progress Note Assessment/Plan: Consult received for persistent air leak on Lt. History of bilateral blebs and COPD. C.T. reviewed will need talc pleurodesis. Will discuss today and arrange for surgery. Intake/Output Summary (Last 24 hours) at 04/19/2023 1241 Last data filed at 04/19/2023 1136 Gross per 24 hour Intake 680 ml Output 2407 ml Net -1727 ml Invalid input(s): HCT, HGB, CR Vitals: 04/19/23 0746 04/19/23 0830 04/19/23 1031 04/19/23 1120 BP: 124/85 (!) 134/91 Pulse: 90 (!) 104 99 Resp: 18 18 Temp: 97.6 ??F (36.4 ??C) 98.3 ??F (36.8 ??C) SpO2: 97% 95% 93% 95% Weight: Height: * Masood Saenz MD - 04/19/2023 12:20 PM CDT Pulmonary Consult Progress Note Subjective/overnight events: Increased ptx on today am film when he inadvertently slept on tube. Better on follow-up film Brisk continuous air leak Vitals: BP (!) 134/91 Pulse 99 Temp 98.3 ??F (36.8 ??C) Resp 18 Ht 6' (1.829 m) Wt 73 kg (160 lb 15 oz) SpO2 95% BMI 21.83 kg/m?? Intake/Output Summary (Last 24 hours) at 04/19/2023 1221 Last data filed at 04/19/2023 1136 Gross per 24 hour Intake 680 ml Output 2407 ml Net -1727 ml Labs/Studies reviewed: CXR today showing near resolution of apical PTX, perhaps small persistent L basilar PTX, apical chest tube in good position VBG today 7.37, CO2 67, improved from admit with CO2 86 Procal 0.29 Cr 0.74 WBC 9.4, hgb 12 Physical Exam: General: Non-toxic, doesn't appear in much pain today or particularly dyspneic HEENT: MMM, no oral lesions CV: RRR, no definite murmurs Resp: Diminished bilaterally L>R, no focal wheeze. L chest apical tube site c/d/I, prior L lateral chest tube site covered and dry, still continuous air leak but less vigorous, -[id number] suction Skin: Warm, well-perfused, normal cap refill, no rashes Ext: No lower extremity edema Neuro: Alert, oriented, answering questions appropriately, MAEE ASSESSMENT/PLAN: Summary: Mr. Prasad is a 53 YOM with h/o severe COPD on 3L O2, h/o provoked DVT/PE no longer anticoagulated, admitted with L tension pneumothorax on 04/15 s/p chest tube placement. - chest tube upsized 04/17. Lung better expanded, but sill with brisk, continuous air leak - continue to -20cm h2o suction - will ask CT surgery to see re: pleurodesis Masood Saenz MD * Lauren Shah, FABRIC SOURCER, HELMET COVERER - 04/19/2023 11:55 AM CDT INTERVENTIONAL RADIOLOGY PROGRESS NOTE Procedure date: 04/17/2023 Procedure: Placement of an 8 Montenegrin left apical chest tube Subjective Romulo is seen on rounds today, in bed watching TV. Denies shortness of breath. On 3L NC. Reports mildtenderness at chest tube insertion site, unchanged since yesterday. States he slept on his side last night, happy to not hear his usual air leak. Now with continuous, brisk air leak. Tubing may have been kinked for an extended period of time over night. CXR pending. Vital Signs / Intake and Output BP (!) 134/91 Pulse 99 Temp 98.3 ??F (36.8 ??C) Resp 18 Ht 6' (1.829 m) Wt 73 kg (160 lb 15 oz) SpO2 95% BMI 21.83 kg/m?? Temp (24hrs), Av ??F (36.7 ??C), Min:97.6 ??F (36.4 ??C), Max:98.3 ??F (36.8 ??C) Intake/Output Summary (Last 24 hours) at 04/19/2023 1215 Last data filed at 04/19/2023 1136 Gross per 24 hour Intake 680 ml Output 2407 ml Net -1727 ml Laboratory Recent Labs 04/17/23 1024 04/18/23 0814 WBC -- 9.4 RBC -- 4.34* HEMOGLOBIN -- 12.4* HEMATOCRIT -- 38.2* PLATELETCT -- 312 INR 1.0 -- Recent Labs 04/18/23813 BUNUREANRO 11 CREATININE 0.74 ESTGFRMDRD >60.00 Imaging 04/19/2023 7:00 AM X-RAY CHEST PORTABLE IMPRESSION Left apical pigtail chest tube again noted. There is now a moderate to large left-sided pneumothorax. This was not present on yesterday's exam. Result was given to the patient's nurse, Wes APARICIO, on04/19/2023 at 7:12 AM. Physical Exam General: No apparent acute distress. Respiratory: Normal depth and regular rhythm. Chest tube at -20 cm H2O WITH continuous, brisk airleak. No crepitus. Dressing CDI with FlexiTrak in place. 24 hour output 32 mL of serous fluid. Neurological system: Alert and orientated. No focal deficits. Psychiatric: Pleasant, calm and cooperative. Impression and Plan Patient is a 53 y.o. male with a pertinent past medical history of severe COPD on 3L supplemental oxygen at baseline who was admitted on 04/15/2023 for a left spontaneous tension pneumothorax. Now s/p pigtail chest tube placement. - Chest tube disposition per Pulmonary Medicine team. - Interventional Radiology following, please call with questions or concerns. Lauren Shah APRN, [facility] Pager Number: Radiology Office: Patient Active Problem List Diagnosis Spontaneous pneumothorax * Sravani Chaudhary MBBS - 04/19/2023 9:08 AM CDT PROGRESS NOTE Chart reviewed CHIEF COMPLAINT: shortness of breath SUBJECTIVE: Patient seen and examined at bedside Reported weakness and increased shortness of breath compare to yesterday CXR this morning showed recurring left-sided pneumothorax that persisted for hours after chest tubemanagement. Review of other systems grossly at baseline. OBJECTIVE: BP 124/85 Pulse 90 Temp 97.6 ??F (36.4 ??C) Resp 18 Ht 6' (1.829 m) Wt 73 kg (160 lb 15 oz) SpO2 97% BMI 21.83 kg/m?? O2 Delivery Source: Nasal Cannula Wt Readings from Last 2 Encounters: 04/15/23 73 kg (160 lb 15 oz) Temp (24hrs), Av.1 ??F (36.7 ??C), Min:97.6 ??F (36.4 ??C), Max:98.6 ??F (37 ??C) Body mass index is 21.83 kg/m??. General Appearance: Patient is alert and oriented x3, in no apparent distress, anicteric, afebrile,acyanotic NECK: supple, No lymphadenopathy RESPIRATORY: decreased/distant breath sounds in most lung zones CARDIOVASCULAR: S1S2 heard GASTROINTESTINAL: Non-distended/Non tender, soft, bowel sounds present throughout, no masses or hepatosplenomegaly MUSCULOSKELETAL: without deformity, normal range of motion SKIN: Warm, dry, no rashes, mottling not present NEUROLOGIC: Cranial nerve II-XII intact, without any focal deficits EXTREMITIES: Moves all extremities, no clubbing, cyanosis, or edema LABS: Recent Labs 04/17/23 1024 04/18/23 0814 CREATININE -- 0.74 CALCIUMSERUM -- 9.4 SODIUM -- 139 POTASSIUM -- 4.3 CARBONDIOXI -- 39* ANIONGAP -- 1.0 WBC -- 9.4 HEMOGLOBIN -- 12.4* HEMATOCRIT -- 38.2* PLATELETCT -- 312 INR 1.0 -- GLUCOSE -- 95 PROCEDURES: Chest tube placement x 2 IMAGING: Latest CXR: Persistent left pneumothorax, slightly decreased in size compared earlier today Additional comments: I reviewed the patient's new clinical lab test results. I reviewed the patient's medications. I reviewed the patient's new imaging test results. ASSESSMENT: 53-year-old man with PMH of chronic hypoxic respiratory failure secondary to severe COPD, provoked DVT and pulmonary embolism [not on anticoagulation who presented with shortness of breath and was found to have tension pneumothorax s/p chest tube placement with ongoing air leak. Repeat radiologic testing since chest tube placement shows progressive increase in pneumothorax. PLAN: #Acute on chronic hypoxic respiratory failure #Left-sided tension secondary spontaneous pneumothorax S/p chest tube placement with persistent moderate left pneumothorax. Patient is presently pursuing possible lung transplant which may affect subsequent decisions regarding pleurodesis/surgery Continue oxygen therapy to maintain adequate oxygen saturation Continue empiric treatment for possible lower lobe pneumonia initiated with ceftriaxone to complete7 days therapy CV surgery evaluation appreciated; for talc pleurodesis and stapling of bleb on the left NPO after MN for above stated procedure #Severe COPD, with acute exacerbation with chronic hypoxic respiratory failure Continue DuoNeb 4 times daily + as needed as needed for shortness of breath Continuue LABA/ICS Continue oxygen therapy as stated above Monitor for respiratory distress CODE STATUS: full GI prophylaxis: diet DVT prophylaxis: SCD Restraints: none Lines: peripheral ESTRELLITA [facility] This document was created using voice recognition software and effort was taken in order to review for accuracy, though some inadvertent typographical errors may be present. * Harriet Meneses MD - 04/19/2023 7:34 AM CDT Pulmonary progress note Called by R with results of this am CX - left sided ptx has recurred. BP 115/86 Pulse (!) 101 Temp 98.1 ??F (36.7 ??C) Resp 18 Ht 6' (1.829 m) Wt 73 kg (160 lb15 oz) SpO2 96% BMI 21.83 kg/m?? General: appears fatigued, not feeling as well today as yesterday CV: RRR Lungs: left chest tube in place - near continuous air leak He's worried that when he slept on his side last night, he didn't hear the usual air leak. Seems most likely that the tube was kinked for a while. Now continues to suction with continuous air leak. Will plan to repeat CXR later today to see if additional chest tube is indicated. Harriet Meneses MD * Orquidea Ly RN - 04/19/2023 5:16 AM CDT Med-Surg Care Progression Note Type: Shift to shift summary Length of stay: 4 days Code Status: Full Code Primary Problem: Spontaneous L-sided pneumothorax. PMHx: COPD. Oxygen dependent. DVT Shift Summary: No acute events this shift. AM CXR for next 7 days. F- Feeding & Fluids: Tolerating regular diet with thin liquids. Takes meds whole. No complaintsof n/v overnight. SL'd. A- Analgesic & Anticoagulation: Comfort Goal: Numeric, Verbal, Faces: 3 Analgesic L sided CP managed with scheduled pain meds and PRN oxy and tylenol Anticoagulation/DVT prevention & plan SCDs. S- Skin: Total Renetta Score: 20: L CT site dressings remain CDI. No other skin issues noted. Specialty bed ordered d/t Pt c/o neck and back r/t current bed. T- Telemetry: No tele E- Emotional & Neuro: Participating in cares. Calm, compliant. Pleasant affect Neuro Alert and Oriented R- Respiratory: On 3L NC. CT to -20sxn even with ambulation. Intermittent airleak noted. No crepitus. Duonebs by RT. H- Head OUT of Bed & Activity: Activate Fall Alert? (Enter 1 or 0): 1 - Per previous shift report, Pt ambulating in hallways with A2 for suction pump and O2 tank management. Not OOB overnight U- Urologic/bowel: Size: Large (04/18/2023 10:08 AM) Voiding via urinal without difficulty. No BM overnight G- Glycemic Control: Not applicable T- Treatment: Pain management, therapies, CT to -20sxn, CXR in AM X7 days, IV abx I- Invasive Devices: PIVx1, L CT D- Discharge: Home when medically stable Problem: Falls/Injury-Risk of Goal: Absence of Falls/Injury Flowsheets (Taken 04/19/2023 0050) Environmental Safety Interventions: Standard Interventions in Place Fall Risk Light on Outside Patient Room Fall Risk manager division Door (NMR) Hi-Lo Bed ([employer]Care) Keep Assistive Device Close At All Times Mobility Safety Interventions: Standard Interventions in Place Stay Within Arms Reach Use Assistive Device When Patient Is Up Bed Alarm on Fall Prevention Slippers Elimination Safety Interventions: Standard Interventions in Place Offered/Assisted with Toileting Every 2 Hours Stay Within Arms Reach Medication: Standard Interventions in Place Consults: Social Service Consult Occupational Therapy (Requires MD Order) Problem: SAFETY Goal: *Communicates safety needs Outcome: Met this shift Problem: Pain Goal: Exhibits reduction in pain to a level of acceptable comfort Outcome: Met this shift Problem: Mobility - Impaired Goal: Demonstrates ability to perform physical activity independently or with assistive devices as needed Outcome: Met this shift Problem: Chest Tube Management Goal: Maintain adequate oxygenation related to chest tube placement Outcome: Met this shift * Froilan Kohli RN - 04/18/2023 10:25 PM CDT Med-Surg Care Progression Note Type: Shift to shift summary Length of stay: 3 days Code Status: Full Code Primary Problem: Spontaneous L-sided pneumothorax. PMHx: COPD. Oxygen dependent. DVT Summary: No acute events this shift. Walked in hallways X1 this shift with A2 for sxn pump and O2 tank management, SOB during ambulation - pt states it is baseline. CXR for next 7 days. F- Feeding & Fluids: Tolerating regular diet and thin liquids. Meds whole. Sld. No NV. A- Analgesic & Anticoagulation: Comfort Goal: Numeric, Verbal, Faces: 3 Analgesic Pain managed with prn oxy and tyl and scheduled robaxin. Anticoagulation/DVT prevention & plan SCDs. S- Skin: Renetta Subcategory Concern(s): Sensory Perception: No Impairment Moisture: Rarely Moist Activity: Walks Occasionally Nutrition: Adequate Mobility: Slightly Limited Friction and Shear: No Apparent Problem Total Renetta Score: 20: L CT site dressings CDI. T- Telemetry: No tele E- Emotional & Neuro: Participating in cares Neuro Alert and Oriented R- Respiratory: On 3L NC, CT to -20sxn even with ambulation. Intermittent airleak, no crepitus. Duonebs by RT. H- Head OUT of Bed & Activity: Activate Fall Alert? (Enter 1 or 0): 1 Ambulating in hallways with A2 for suction pump and O2 tank management. U- Urologic/bowel: Size: Large (04/18/2023 10:08 AM) Voiding in urinal without difficulty, no BM this shift. G- Glycemic Control: Not applicable T- Treatment: Pain management, therapies, CT to -20sxn, CXR in AM X7 days, IV abx I- Invasive Devices: 1 PIV, L CT D- Discharge: Home when medically stable. * Modesta Quinones RN - 04/18/2023 2:45 PM CDT Med-Surg Care Progression Note Type: Shift to shift summary Length of stay: 3 days Code Status: Full Code Primary Problem: : Spontaneous L-sided pneumothorax. HX: COPD. Oxygen dependent. DVT F- Feeding & Fluids: Tolerating regular diet, all liquids; SL A- Analgesic & Anticoagulation: Comfort Goal: Numeric, Verbal, Faces: 3 Analgesic Mild to moderate left upper chest and lower back pain managed with scheduled robaxin, PRN tylenol, PRN oxycodone Anticoagulation/DVT prevention & plan N/A S- Skin: Renetta Subcategory Concern(s): Left CT dressings x 2 CDI Total Renetta Score: 19 T- Telemetry: No tele E- Emotional & Neuro: Participating in cares Neuro Alert and Oriented R- Respiratory: On 3L O2, baseline, satting in upper 90s, denied SOB , encouraged splinting/IS use,left chest tube with intermittent +1 airleak, no crepitus, serous drainage-not ok for waterseal, CXR this am showed near resolution of apical PTX, possible small persistent L basilar PTX H- Head OUT of Bed & Activity: Activate Fall Alert? (Enter 1 or 0): 1 Ambulating SBA in room and in halls this shift with portable suction, O2 tank; PT/OT following U- Urologic/bowel: Size: Medium (04/17/2023 12:13 PM) Voiding in urinal, no BM this shift-last BM yesterday, 04/17 G- Glycemic Control: Not applicable T- Treatment: Pain management, chest tube management, monitor respiratory status, CXR in am, determine possible VATS/pleurodesis/care home plan, CTX for 7 days for LLL consolidation/pneumonia, IV abx I- Invasive Devices: PIV, left CT D- Discharge: Home pending medical stability * Lauren Shah, FABRIC SOURCER, HELMET COVERER - 04/18/2023 2:35 PM CDT INTERVENTIONAL RADIOLOGY PROGRESS NOTE Procedure date: 04/17/2023 Procedure: Placement of an 8 Montenegrin left apical chest tube Subjective Romulo is seen on rounds today, ambulating in the hallway with his nurse. Denies shortness of breath. On 3L NC. Reports mild tenderness at chest tube insertion site. Vital Signs / Intake and Output BP (!) 134/92 Pulse (!) 103 Temp 98.6 ??F (37 ??C) Resp 18 Ht 6' (1.829 m) Wt 73 kg (160 lb 15 oz) SpO2 99% BMI 21.83 kg/m?? Temp (24hrs), Av ??F (36.7 ??C), Min:97.3 ??F (36.3 ??C), Max:98.6 ??F (37 ??C) Intake/Output Summary (Last 24 hours) at 04/18/2023 1503 Last data filed at 04/18/2023 1440 Gross per 24 hour Intake 726 ml Output 1351 ml Net -625 ml Laboratory Recent Labs 04/16/23 0656 04/17/23 1024 04/18/23 0814 WBC 19.8* -- 9.4 RBC 4.02* -- 4.34* HEMOGLOBIN 11.6* -- 12.4* HEMATOCRIT 35.6* -- 38.2* PLATELETCT 305 -- 312 INR -- 1.0 -- Recent Labs 04/16/23 0656 04/18/23 0814 BUNUREANRO 15 11 CREATININE 0.90 0.74 ESTGFRMDRD >60.00 >60.00 Imaging 04/18/2023 8:00 AM XR CHEST AP PORT reviewed by myself. Pigtail chest tube seen within the left pleural space near the apex. IMPRESSION Interval placement of a left anterior pleural drain terminating near the apex. The apical componentof the left pneumothorax has resolved with a probable persistent small basilar component. Physical Exam General: No apparent acute distress. Respiratory: Normal depth and regular rhythm. Chest tube at -20 cm H2O WITH intermittent airleak. No crepitus. Dressing CDI with FlexiTrak in place. 24 hour output 10 mL of serous fluid. Neurological system: Alert and orientated. No focal deficits. Psychiatric: Pleasant, calm and cooperative. Impression and Plan Patient is a 53 y.o. male with a pertinent past medical history of severe COPD on 3L supplemental oxygen at baseline who was admitted on 04/15/2023 for a left spontaneous tension pneumothorax. Now s/p pigtail chest tube placement. - Chest tube disposition per Pulmonary Medicine team. - Interventional Radiology following, please call with questions or concerns. Lauren Shah APRN, [facility] Pager Number: Radiology Office: Patient Active Problem List Diagnosis Spontaneous pneumothorax * Dhaval Yao MD - 04/18/2023 10:29 AM CDT Pulmonary Consult Progress Note Subjective/overnight events: Yesterday 8Fr chest tube placed to left apex, prior chest tube removed. Feeling better overnight. Now only intermittent rather than continuous air leak observed. On 3L NC. Vitals: BP (!) 140/100 Pulse 93 Temp 97.9 ??F (36.6 ??C) Resp 16 Ht 6' (1.829 m) Wt 73 kg (160 lb15 oz) SpO2 98% BMI 21.83 kg/m?? Intake/Output Summary (Last 24 hours) at 04/18/2023 1029 Last data filed at 04/18/2023 0914 Gross per 24 hour Intake 486 ml Output 1748 ml Net -1262 ml Labs/Studies reviewed: CXR today showing near resolution of apical PTX, perhaps small persistent L basilar PTX, apical chest tube in good position VBG today 7.37, CO2 67, improved from admit with CO2 86 Procal 0.29 Cr 0.74 WBC 9.4, hgb 12 Physical Exam: General: Non-toxic, doesn't appear in much pain today or particularly dyspneic HEENT: MMM, no oral lesions CV: RRR, no definite murmurs Resp: Diminished bilaterally L>R, no focal wheeze. L chest apical tube site c/d/I, prior L lateral chest tube site covered and dry, still continuous air leak but less vigorous, -[id number] suction Skin: Warm, well-perfused, normal cap refill, no rashes Ext: No lower extremity edema Neuro: Alert, oriented, answering questions appropriately, MAEE ASSESSMENT/PLAN: Summary: Mr. Prasad is a 53 YOM with h/o severe COPD on 3L O2, h/o provoked DVT/PE no longer anticoagulated, admitted with L tension pneumothorax on 04/15 s/p chest tube placement. # Persistent moderate L pneumothorax, secondary spontaneous likely from emphysema bleb # LLL consolidation, query pneumonia # Chronic hypoxic/hypercapnic respiratory failure New chest tube has allowed better lung inflation, which is good. Air leak persists. He was pursuingpossible lung transplant and declined at [place] (d/t financial reasons). I am inclined to ask CV Surgery to see him about definitive VATS/pleurodesis, but have sent a message to some [facility] transplant colleagues about whether they would approach the case any different if he may be a transplant candidatein the future. In meantime, continue chest tube -[id number] suction, repeat CXR in AM. Continue CTX for 7d for LLL consolidation/pneumonia. Continue scheduled DuoNebs + Breo inhaler (sub for home Trelegy). We will continue to follow, please call with questions. Dhaval Yao MD [facility] Pager [phone] Total patient care time 30 minutes. * Sravani Chaudhary MBBS - 04/18/2023 9:34 AM CDT PROGRESS NOTE Chart reviewed CHIEF COMPLAINT: no new complaint SUBJECTIVE: Patient seen and examined at bedside He denies acute complaint or concerns Endorsed significant improvement in shortness of breath No acute overnight event, vital signs stable Review of other systems grossly at baseline. OBJECTIVE: BP (!) 140/100 Pulse 93 Temp 97.9 ??F (36.6 ??C) Resp 16 Ht 6' (1.829 m) Wt 73 kg (160 lb15 oz) SpO2 98% BMI 21.83 kg/m?? O2 Delivery Source: Nasal Cannula Wt Readings from Last 2 Encounters: 04/15/23 73 kg (160 lb 15 oz) Temp (24hrs), Av.8 ??F (36.6 ??C), Min:97.3 ??F (36.3 ??C), Max:98.3 ??F (36.8 ??C) Body mass index is 21.83 kg/m??. General Appearance: Patient is alert and oriented x3, in no apparent distress, anicteric, afebrile,acyanotic NECK: supple, No lymphadenopathy RESPIRATORY: decreased/distant breath sounds in most lung zones CARDIOVASCULAR: S1S2 heard GASTROINTESTINAL: Non-distended/Non tender, soft, bowel sounds present throughout, no masses or hepatosplenomegaly MUSCULOSKELETAL: without deformity, normal range of motion SKIN: Warm, dry, no rashes, mottling not present NEUROLOGIC: Cranial nerve II-XII intact, without any focal deficits EXTREMITIES: Moves all extremities, no clubbing, cyanosis, or edema LABS: Recent Labs 04/16/23 0656 04/17/23 1024 04/18/23 0814 CREATININE 0.90 -- 0.74 CALCIUMSERUM 9.6 -- 9.4 SODIUM 139 -- 139 POTASSIUM 4.3 -- 4.3 CARBONDIOXI 36* -- 39* ANIONGAP 3.0 -- 1.0 WBC 19.8* -- 9.4 HEMOGLOBIN 11.6* -- 12.4* HEMATOCRIT 35.6* -- 38.2* PLATELETCT 305 -- 312 INR -- 1.0 -- GLUCOSE 112* -- 95 PROCEDURES: Chest tube placement x 2 IMAGING: Latest CXR: The left lateral pleural drain has been removed with interval placement of a left anterior pleural drain terminating near the apex. Additional comments: I reviewed the patient's new clinical lab test results. I reviewed the patient's medications. I reviewed the patient's new imaging test results. ASSESSMENT: 53-year-old man with PMH of chronic hypoxic respiratory failure secondary to severe COPD, provoked DVT and pulmonary embolism [not on anticoagulation who presented with shortness of breath and was found to have tension pneumothorax s/p chest tube placement with ongoing air leak. Repeat radiologic testing since chest tube placement shows progressive increase in pneumothorax. PLAN: #Acute on chronic hypoxic respiratory failure #Left-sided tension secondary spontaneous pneumothorax S/p chest tube placement with persistent moderate left pneumothorax. Patient is presently pursuing possible lung transplant which may affect subsequent decisions regarding pleurodesis/surgery Continue oxygen therapy to maintain adequate oxygen saturation Continue empiric treatment for possible lower lobe pneumonia initiated with ceftriaxone to complete7 days therapy Follow up repeat CXR in the morning Possible CV Surgery as per pulmonary for possible definitive VATS/pleurodesis versus [facility] evaluationfor possible lung transplant #Severe COPD, with acute exacerbation with chronic hypoxic respiratory failure Continue DuoNeb 4 times daily + as needed as needed for shortness of breath Continuue LABA/ICS Continue oxygen therapy as stated above Monitor for respiratory distress CODE STATUS: full GI prophylaxis: diet DVT prophylaxis: SCD Restraints: none Lines: peripheral ESTRELLITA [facility] This document was created using voice recognition software and effort was taken in order to review for accuracy, though some inadvertent typographical errors may be present. * Renée Cedeño RN - 04/18/2023 3:53 AM CDT Med-Surg Care Progression Note Type: Shift to shift summary Length of stay: 3 days Code Status: Full Code Primary Problem: Spontaneous L-sided pneumothorax. HX: COPD. Oxygen dependent. DVT F- Feeding & Fluids: Tolerating Regular diet with all liquids. A- Analgesic & Anticoagulation: Comfort Goal: Numeric, Verbal, Faces: 3 Analgesic Left upper chest and back pain managed with Tylenol and Oxycodone. Anticoagulation/DVT prevention & plan NA S- Skin: Total Renetta Score: 19: CT dressing x2 CDI. T- Telemetry: No tele E- Emotional & Neuro: Participating in cares Neuro Alert and Oriented R- Respiratory: 3L O2 per NC as at home. CT -20cm suction w/ continuous air leak. 5cc serous drainage in CT chamber. H- Head OUT of Bed & Activity: Activate Fall Alert? (Enter 1 or 0): 1 Up with SBA. Early mobility Phases 1-4: Phase 1: Bed Mobility U- Urologic/bowel: Size: Medium (04/17/2023 12:13 PM) Voiding in urinal. G- Glycemic Control: Not applicable T- Treatment: Pain management, maximize respiratory status (O2, CT). CXR this morning. I- Invasive Devices: PIV, Left CT D- Discharge: Home pending medical stability. Renée Goodwin RN * Yamilka Cano RN - 04/17/2023 9:28 PM CDT Med-Surg Care Progression Note Type: Shift to shift summary Length of stay: 2 days Code Status: Full Code Primary Problem: Spontaneous L-sided pneumothorax. Hx COPD. CT placed at OSH Summary: New CT placed this shift (-20 Cm H20 suction) will have chest xray tomorrow F- Feeding & Fluids: Tolerating regular diet and thin liquids, swallows pills whole A- Analgesic & Anticoagulation: Analgesic Pain at CT placment site, gave scheduled pain meds along with Prn IV morphine 2mg, and PRN Tylenol and oxy Anticoagulation/DVT prevention & plan SCDs S- Skin: Renetta Subcategory Concern(s): turn and repo q2hr but needs assistance d/t pain. CT dressing CDI T- Telemetry: No tele E- Emotional & Neuro: Participating in cares Neuro Alert and Oriented R- Respiratory: on 3L NC (on at baseline) Pulmonary managing L CT, -20 sxn (has intermittent air leak, said that was normal) H- Head OUT of Bed & Activity: Activate Fall Alert? (Enter 1 or 0): [address] management/pain U- Urologic/bowel: Size: Medium (04/17/2023 12:13 PM) Voiding without difficulty in urinal G- Glycemic Control: Not applicable T- Treatment: CT management, manage pain I- Invasive Devices: PIV, L CT D- Discharge: TBD * Yamilka Cano RN - 04/17/2023 3:30 PM CDT Carl Prasad 1970 [id number] P. Transfer A. Transferred at 1530 to 6W unit. Transported via bed with CT suction escorted by nurse. I. Notified no family member of transfer. Patient information and safety items addressed included How to Call a Response Team, hourly rounding procedures. R. Patient expressed understanding of information. . * Modesta Quinoens RN - 04/17/2023 12:29 PM CDT Med-Surg Care Progression Note Type: Shift to shift summary Length of stay: 2 days Code Status: Full Code Primary Problem: Spontaneous L-sided pneumothorax. Hx COPD. CT placed at OSH Summary: CT done this shift; NPO For larger bore CT placement, started on Rocephin for concern of possible LLL pneumonia F- Feeding & Fluids: NPO for CT placement, SL A- Analgesic & Anticoagulation: Analgesic Left chest tube pain/tightness managed with PRN IV morphine 2 mg x 1, oxycodone, tylenol, scheduledrobaxin Anticoagulation/DVT prevention & plan SCDs S- Skin: Renetta Subcategory Concern(s): Turn/repo q2h with assistance d/t pain; L CT site CDI Total Renetta Score: 19 T- Telemetry: No tele E- Emotional & Neuro: Participating in cares Neuro Alert and Oriented R- Respiratory: On 3L-baseline, satting in upper 90s on continuous pulse ox d/t reported SOB; Left CT -30 sxn with cont air leak-grade 1, no crepitus; Pulmonary managing chest tube-another CT placement ordered this shift, to be placed today H- Head OUT of Bed & Activity: Activate Fall Alert? (Enter 1 or 0): [address] management/pain; turn/repositioning-mildly helpful with increased SOB, PT/OT following-on hold today per central processing technician recommendation prior to CT placement U- Urologic/bowel: Size: Medium (04/16/2023 12:00 PM) Voiding without difficulty in urinal, medium BM this shift G- Glycemic Control: Not applicable T- Treatment: CT placement, CT management, pain management, IV abx I- Invasive Devices: PIV, left CT D- Discharge: TBD * Loyda Chua OT - 04/17/2023 10:49 AM CDT Occupational Therapy Orders received, chart reviewed. PT communicated message to this chief writer that central processing technician recommending hold therapies today, anticipate chest tube procedure today. * Sravani Chaudhary MBBS - 04/17/2023 9:30 AM CDT PROGRESS NOTE Chart reviewed CHIEF COMPLAINT: shortness of breath + chest pain SUBJECTIVE: Patient seen and examined at bedside New onset of chest pain overnight for which radiologic testing showed persistent pneumothorax He endorsed slight improvement in chest pain, shortness of breath remained stable No further concerns or complaints Review of other system remains unchanged. OBJECTIVE: BP 130/89 Pulse 85 Temp 97.9 ??F (36.6 ??C) Resp 18 Ht 6' (1.829 m) Wt 73 kg (160 lb 15 oz) SpO2 99% BMI 21.83 kg/m?? O2 Delivery Source: Nasal Cannula Wt Readings from Last 2 Encounters: 04/15/23 73 kg (160 lb 15 oz) Temp (24hrs), Av.2 ??F (36.8 ??C), Min:97.9 ??F (36.6 ??C), Max:98.6 ??F (37 ??C) Body mass index is 21.83 kg/m??. General Appearance: Patient is alert and oriented x3, in no apparent distress, anicteric, afebrile,acyanotic NECK: supple, No lymphadenopathy RESPIRATORY: decreased/distant breath sounds in most lung zones CARDIOVASCULAR: S1S2 heard GASTROINTESTINAL: Non-distended/Non tender, soft, bowel sounds present throughout, no masses or hepatosplenomegaly MUSCULOSKELETAL: without deformity, normal range of motion SKIN: Warm, dry, no rashes, mottling not present NEUROLOGIC: Cranial nerve II-XII intact, without any focal deficits EXTREMITIES: Moves all extremities, no clubbing, cyanosis, or edema LABS: Recent Labs 04/15/23 0648 04/15/23 0655 04/16/23 0656 CREATININE 0.8 0.76 0.90 CALCIUMSERUM -- 9.3 9.6 SODIUM 141 142 139 POTASSIUM 4.7 4.6 4.3 CARBONDIOXI -- 35* 36* ANIONGAP -- 4.0 3.0 WBC -- 13.9* 19.8* HEMOGLOBIN -- 13.3* 11.6* HEMATOCRIT -- 41.4 35.6* PLATELETCT -- 305 305 INR -- 1.0 -- GLUCOSE 114* 112* 112* PROCEDURES: Chest tube placement [ 04/15/23] IMAGING: Latest CXR: Left chest tube remains in place. Persistent moderate-sized left- sided pneumothorax, increased in volume compared to yesterday's exam. Follow-up chest CT/thorax: Moderate-sized left pneumothorax unchanged compared to the recent chest radiograph. A small bore left pleural drainage catheter is identified in the pleural space interposed between the left lung andthe left chest wall. There is no mediastinal shift. There is a small amount of pneumomediastinum. Atelectasis involving the majority of the left lower lobe. Pulmonary emphysema. Additional comments: I reviewed the patient's new clinical lab test results. I reviewed the patient's medications. I reviewed the patient's new imaging test results. ASSESSMENT: 53-year-old man with PMH of chronic hypoxic respiratory failure secondary to severe COPD, provoked DVT and pulmonary embolism [not on anticoagulation who presented with shortness of breath and was found to have tension pneumothorax s/p chest tube placement with ongoing air leak. Repeat radiologic testing since chest tube placement shows progressive increase in pneumothorax. PLAN: #Acute on chronic hypoxic respiratory failure #Left-sided tension secondary spontaneous pneumothorax S/p chest tube placement with persistent moderate left pneumothorax. Patient is presently pursuing possible lung transplant which may affect subsequent decisions regarding pleurodesis/surgery Continue oxygen therapy to maintain adequate oxygen saturation For IR replacement of chest tube with a larger size to maximize drainage Empiric treatment for possible lower lobe pneumonia initiated with ceftriaxone as per pulmonary Further recommendation and management as per pulmonary #Severe COPD, with acute exacerbation with chronic hypoxic respiratory failure Continue DuoNeb 4 times daily + as needed as needed for shortness of breath LABA/ICS initiated as well Continue oxygen therapy as stated above Monitor for respiratory distress CODE STATUS: full GI prophylaxis: diet DVT prophylaxis: SCD Restraints: none Lines: peripheral Discussed care plan with patient ESTRLELITA [facility] This document was created using voice recognition software and effort was taken in order to review for accuracy, though some inadvertent typographical errors may be present. * Dhaval Yao MD - 04/17/2023 9:27 AM CDT Pulmonary Consult Progress Note Subjective/overnight events: Last night new chest pain L chest, stable O2 3L NC. CXR showed increased L PTX, suctioned increasedto [id number] per Dr. Ross. At the moment the chest pain is improved, ongoing dyspnea but stable and better than this AM. Slight cough, no new wheeze. Denies fevers. Reports feeling ok until basically AM of presentation with chest pain/dyspnea. Vitals: BP 130/89 Pulse 85 Temp 97.9 ??F (36.6 ??C) Resp 18 Ht 6' (1.829 m) Wt 73 kg (160 lb 15 oz) SpO2 99% BMI 21.83 kg/m?? Intake/Output Summary (Last 24 hours) at 04/17/2023 0995 Last data filed at 04/17/2023 0738 Gross per 24 hour Intake 600 ml Output 1085 ml Net -485 ml Labs/Studies reviewed: WBC 20 from 14 Hgb 11.6 Plt 305 Cr 0.9 Hco3 36 Admit VBG 7.25, Co2 86 Troponin overnight negative CXRs showing increase in L PTX up to 5cm this AM CT chest this AM with severe emphysema + blebs, ongoing mod/large L PTX, LLL consolidation without obvious endobronchial obstructoin, L chest tube appears in appropriate position Physical Exam: General: Non-toxic, appears in a little pain, mild dyspnea not too bad HEENT: MMM, no oral lesions CV: RRR, no definite murmurs Resp: Diminished bilaterally L>R, no focal wheeze. L chest tube (probably 7-8Fr tubing) with connections intact, continuous large air leak in atrium. Skin: Warm, well-perfused, normal cap refill, no rashes Ext: No lower extremity edema Neuro: Alert, oriented, answering questions appropriately, MAEE ASSESSMENT/PLAN: Summary: Mr. Prasad is a 53 YOM with h/o severe COPD on 3L O2, h/o provoked DVT/PE no longer anticoagulated, admitted with L tension pneumothorax on 04/15 s/p chest tube placement. # Persistent moderate L pneumothorax, secondary spontaneous likely from emphysema bleb # LLL consolidation, query pneumonia I think his small-size chest tube is being overwhelmed by the size of the air leak and he's not getting adequate drainage. Will request 2nd larger chest tube placement (20-24Fr if possible) with our radiology colleagues, to maximize drainage. [facility] - this may factor into subsequent decisions about pleurodesis/surgery, though need to treat (and prevent) his pneumo so this should take precedence. Will start CTX 2g daily for possible LLL pneumonia, though admittedly had few pre-existing symptoms. Continue scheduled DuoNebs + start Breo inhaler (sub for home Trelegy). We will continue to follow, please call with questions. Discussed with radiology and his nurse. Dhaval Yao MD [facility] Pager [phone] Total patient care time 30 minutes. * Alondra Ross MD - 04/17/2023 6:40 AM CDT Pulmonary brief note-- Pt awoke with dyspnea this AM -- CXR with PTX since yesterday despite chest tube in place; ongoing continuous air leak; chest tube in place (not entraining air). Increased suction to -[address]. Suspect tube is likely in place but likely needs to be up-sized to fully evacuate space. Alondra Ross MD [phone] (pg) [phone] (office) * Pauline Rangel DO - 04/17/2023 5:38 AM CDT Cross Cover Note: Received page by RN regarding new chest pain. Pain was sudden onset described as pressure/tightness. Encompassing most of his left chest, not just at the site of his chest tube. VS relatively stable,though now on 3LNC rather than 2L. Slightly hypertensive and tachypnic with shallow breathing. Will obtain CXR, EKG and troponin for initial workup. Morphine ordered for chest pain. Pauline Rangel DO [facility] Medicine Update: EKG was NSR with sinus arrhythmia, without acute ischemic changes. CXR concerning for increased volume of left sided pneumothorax. Troponin pending. Asked RN to discuss worsening pneumothorax with pulmonology as they are currently consulted for management. * Tyler Crowell RN - 04/17/2023 4:07 AM CDT Images from the original note were not included. Med-Surg Care Progression Note Type: Shift to shift summary: [id number] Length of stay: 2 days Code Status: Full Code Primary Problem: Spontaneous L-sided pneumothorax. Hx COPD. CT placed at OSH. Summary: Pt c/o SOB/CP around 30. CXR showed increased pneumo~ paged Pulmonary per hospital request. Plan to do CT today. EKG showed SR w/marked Sinus arrhythmia, Trop negative. Morphine ordered and given x 1 w/good relief. BP elevated. F- Feeding & Fluids: Tolerating regular diet, thin liquids. SL'd. Denied any N/V. A- Analgesic & Anticoagulation: Analgesic Pt c/o pain at CT site and back. Gave oxycodone, tylenol and on scheduled robaxin. Added prn morphine after CP/SOB this am. Anticoagulation/DVT prevention & plan SCDs S- Skin: Total Renetta Score: 20: Left CT dressing CDI. Pt able to shift weight some but assist w/full turn d/t pain. T- Telemetry: No tele E- Emotional & Neuro: Pt calm and cooperative with cares. Neuro Alert and Oriented x 3. R- Respiratory: Pt wears 3L NC at baseline. Left CT changed to -30 suction by pulmonary this am after CP/SOB. Cont air leak~grade 1. No crepitus. CXR yesterday showed persistent pneumo. Pulmonary ordered CT today. H- Head OUT of Bed & Activity: Activate Fall Alert? (Enter 1 or 0): 1 Pt did not get OOB overnight. Repositioning w/assist. Therapies following. U- Urologic/bowel: Size: Medium (04/16/2023 12:00 PM) Voiding without difficulty in urinal. No BM overnight. G- Glycemic Control: Not applicable T- Treatment: CT management, CXR in am, therapies, pain management. I- Invasive Devices: PIV, L CT D- Discharge: TBD * Vicky Arzate RN - 04/16/2023 10:50 PM CDT Med-Surg Care Progression Note Type: Shift to shift summary Length of stay: 1 days Code Status: Full Code Primary Problem: Spontaneous L-sided pneumothorax. Hx COPD. F- Feeding & Fluids: Tolerating regular diet, thin liquids. A- Analgesic & Anticoagulation: Analgesic Dull pain to back. PRN tylenol and scheduled robaxin. Anticoagulation/DVT prevention & plan SCDs S- Skin: Total Renetta Score: 20: able to reposition self independently. Chest tube dressing intact change q 72 hours. T- Telemetry: No tele E- Emotional & Neuro: Participating in cares Neuro Alert and Oriented R- Respiratory: baseline 3L NC . Left chest tube -20sxn. Continuous grade 1 air leak. No crepitus. Small serous output. CXR showed persistent pneumo repeat cxr in am. If continuous air leak continue for a few days will check CT H- Head OUT of Bed & Activity: Activate Fall Alert? (Enter 1 or 0): 1 Ambulating SBA. Mostly inbed due to continuous suction U- Urologic/bowel: Size: Medium (04/16/2023 12:00 PM) Voiding without difficulty. G- Glycemic Control: Not applicable T- Treatment: chest tube management, respiratory hygiene, pain control I- Invasive Devices: piv D- Discharge: pending chest tube removal * Leidy Aleman RT - 04/16/2023 7:20 PM CDT Patient has orders for Duo-neb QID. Patient seen on Nasal Cannula at 3 LPM. SpO2: 98 %, Respirations: 18, Pulse: (!) 106. Pre treatment Breath sounds All Spivey: Diminished;Expiratory;Wheeze. Patient received nebulizer as ordered via Delivery Device: Mouthpiece. Patient tolerated treatment well. Skin assessment: done Refer to flowsheet for additional information if needed. * Carri Barr RN - 04/16/2023 5:28 PM CDT Med-Surg Care Progression Note Type: Shift to shift summary Length of stay: 1 days Code Status: Full Code Primary Problem: Spontaneous L-sided pneumothorax Hx: Severe COPD F- Feeding & Fluids: Tolerating regular diet and thin liquids A- Analgesic & Anticoagulation: Analgesic Dull pain stated to chest tube site. Scheduled robaxin and PRN tylenol given with relief Anticoagulation/DVT prevention & plan SCDs not indicated S- Skin: Total Renetta Score: 20: Patient able to move and reposition independently, chest tube siteis CDI T- Telemetry: No tele E- Emotional & Neuro: Participating in cares Neuro Alert and Oriented R- Respiratory: Baseline on 3L NC at home. Currently on 3L NC and Chest tube at -20 mmg continuous suction. Continuous, grade 1 air leak present. No crepitus. 15 ml clear output. Repeat CXR showed moderate enlargement in pneumo. Pulmonary aware. H- Head OUT of Bed & Activity: Able to walk to chair with SBA. Back to bed d/t weakness and tiredness. U- Urologic/bowel: Voiding with urinal, but able to use BSC as needed G- Glycemic Control: Not applicable T- Treatment: chest tube, respiratory hygiene, pain control I- Invasive Devices: PIV x2 D- Discharge: TBD * Harriet Meneses MD - 04/16/2023 12:13 PM CDT PULMONARY PROGRESS NOTE SUBJECTIVE Admitted yesterday with left ptx due to severe COPD. Has left chest tube in place. CXR this am shows ptx is bigger - not sure if tubing was kinked at that time or not. He has an ongoing continuous air leak from the tube. OBJECTIVE BP 115/81 Pulse 94 Temp 98 ??F (36.7 ??C) Resp 16 Ht 6' (1.829 m) Wt 73 kg (160 lb 15 oz) SpO2 97% BMI 21.83 kg/m?? Temp (24hrs), Av.3 ??F (36.8 ??C), Min:98 ??F (36.7 ??C), Max:98.6 ??F (37 ??C) GENERAL APPEARANCE: He is sleeping, wakes easily NECK: no sq air at neck baser RESPIRATORY: decreased throughout, scattered wheezes, left sided chest tube with continuous air leak CARDIOVASCULAR: Normal S1, normal S2, regular rhythmn, without murmur. GASTROINTESTINAL: Soft, non-tender, normal bowel sounds. NEUROLOGIC: alert and oriented, moves all extremities. Non-focal exam. EXTREMITIES: No edema or cyanosis. Results for orders placed or performed during the hospital encounter of 04/15/23 (from the past 24 hour(s)) CBC / Diff Result Value Ref Range WBC 19.8 (H) 4.3 - 10.8 K/uL RBC 4.02 (L) 4.60 - 6.20 M/uL HEMOGLOBIN 11.6 (L) 14.0 - 18.0 gm/dL HEMATOCRIT 35.6 (L) 40.0 - 54.0 % MCV 89 80 - 100 fL MCH 29 27 - 33 pg MCHC 33 33 - 36 gm/dL RDW 12.3 11.5 - 14.5 % PLATELET COUNT 305 150 - 400 K/UL MPV 10.6 6.5 - 12 fL PMN % 81.8 % IG% 0.8 <=1.0 % LYMPH % 7.7 % MONO % 9.3 % EOS % 0.2 % BASO % 0.2 % PMN ABSOLUTE 16.25 (H) 1.80 - 7.80 K/uL IG ABSOLUTE 0.15 (H) 0.00 - 0.00 K/uL LYMPH ABSOLUTE 1.52 1.00 - 4.00 K/uL MONO ABSOLUTE 1.85 (H) 0.00 - 1.00 K/uL EOS ABSOLUTE 0.03 0.00 - 0.45 K/uL BASO ABSOLUTE 0.03 0.00 - 0.20 K/uL NUCL RBC % 0.0 0.0 - 0.0 /100 WBC NUCL RBC ABSOLUTE 0.00 0.00 - 0.00 K/uL Basic Metabolic Profile Result Value Ref Range SODIUM 139 136 - 145 mmol/L POTASSIUM 4.3 3.4 - 5.1 mmol/L CHLORIDE 100 98 - 108 mmol/L CARBON DIOXIDE 36 (H) 20 - 31 mmol/L BUN (UREA NITRO) 15 9 - 23 mg/dL CREATININE 0.90 0.60 - 1.10 mg/dL EST GFR (CKD-EPI) >60.00 >60.00 mL/min/1.73m2 GLUCOSE 112 (H) 74 - 106 mg/dL CALCIUM, SERUM 9.6 8.7 - 10.4 mg/dL ANION GAP 3.0 0.0 - 15.0 mmol/L Additional Comments: I personally viewed the patient's CXR. Left sided pneumothorax - suspect secondary to severe COPD Chest tube placed 04/15 - continuous suction. There is a near continuous air leak. CXR shows good re-expansion, although a small ptx remains. In general - continuous suction to chest tube. If air leak persists for the next couple days, will then check CT chest. Given the severe underlying COPD (transplant evaluation completed at [facility] ) - hope to avoid surgery as able. Will explore option of possible endobronchial valve placement as well. Pain meds per hospital medicine Would also hold on further doses of steroids as this might slow pleural healing. Agree with changing home Trelegy to DuoNebs for now If he has any change / worsening of pain or breathing - check chest tube for kinking, get CXR and please page pulmonary. 2. End stage COPD. Declined for lung transplant at [facility] due to financial concerns. 3. Hypoxia - uses home O2 at 3LPM continuous. Counselled to obtain oximeter for home use, my suspicion is that he gets hypoxic with exertion (even prior to ptx), O2 sat goal >88%. Case discussed with Dr. Griggs and bedside RN today. Harriet Meneses MD * Emilee Griggs MD - 04/16/2023 8:15 AM CDT Images from the original note were not included. HOSPITALIST DIVISION PROGRESS NOTE Length of Stay: 1 ASSESSMENT/PLAN: Carl Prasad is a 53 y.o. male with PMH significant for chronic hypoxic respiratory failure (on 3 LPM) 2/2 severe COPD, provoked DVT and PE not on AC who was admitted on 04/15/23 with shortness of breath, found to have a tension pneumothorax S/P chest tube placement. Ongoing airleak. Acute hypoxic respiratory failure 2/2 L sided tension pneumothorax S/P chest tube placement Found to have tension PTX at OSH ED, underwent needle decompression and chest tube placed. Continuous air leak noted upon and on high flow O2 on arrival. Dressing re-enforced and O2 needs decreased. Now on 3 LPM (baseline). Initial CXR on 04/15 showed small left pneumothorax but subsequent CXR on 04/16 showed interval enlargement (now moderate); no mediastinal shift. No kinking noted at the bedside and air leak persists, so continuing to continuous suction. - pulmonology consulted, appreciate recs - defer CT to pulm, currently on continuous suction - If any change / worsening of pain or breathing - check tube for kinking, CXR and page pulmonary - acetaminophen, robaxin and oxycodone PRN Chronic hypoxic respiratory failure (on 3 LPM) 2/2 severe COPD Possible COPD exacerbation Noted to be diffusely wheezing on arrival. Very severe COPD at baseline and is being considered fortransplant but this far, he reports costs is prohibitive. - continue duo-neb scheduled in place of Trelegy - pulm recommends no prednisone as can prohibit healing Leukocytosis, likely stress de-margination with subsequent steroid induced No cough, fever, chills. WBC initially 13, thought to be stress demargination. Received solumedrol in the ED for possible COPD exacerbation and WBC 19. Still lower suspicion for infection. - Continue to monitor CBC, no abx for now as no clear signs or sx of infection CODE STATUS: Full Code - Discussed with patient on admission DVT prophylaxis: not indicated, chest tube in place GI prophylaxis: not indicated, has a diet Allopathic Doctor Type Used: None ACCESS: PIV RESTRAINTS: not indicated FAMILY COMMUNICATION: attempted to call patient's mother, went to voicemail 04/16, unidentified, did not leave voicemail. DISPOSITION: >3 days, pending resolution of PTX, removal of chest tube, and pulm clearance SUBJECTIVE/INTERVAL EVENTS: - Interval increase in PTX on CXR today. Continue to have air leak at bedside. SOB stable, feels about the same. No cough or chest pain except at the site of the tube. OBJECTIVE BP 119/85 Pulse 69 Temp 98 ??F (36.7 ??C) Resp 18 Ht 6' (1.829 m) Wt 73 kg (160 lb 15 oz) SpO2 95% BMI 21.83 kg/m?? Intake/Output Summary (Last 24 hours) at 04/16/2023 0815 Last data filed at 04/16/2023 0600 Gross per 24 hour Intake 100 ml Output 1330 ml Net -1230 ml GENERAL: The patient is well developed, non-toxic and in no acute distress. HEENT: Nonicteric sclerae. Moist mucous membranes. Conjunctivae appear well perfused. CHEST: Chest wall with chest tube in place to L chest with continuous airleak HEART: RRR. Peripheral pulses intact. LUNGS: Very decreased BS. No wheezing noted. No acute respiratory distress. ABDOMEN: Soft, normoactive BS, nontender. SKIN: No rash, no excessive bruising, petechiae, or purpura. Warm and well perfused. EXTREMITIES: No gross deformity. Moving all extremities comfortably. NEUROLOGIC: Alert. Oriented x 3. Normal speech. No tremor. PSYCH: Normal mood and affect. Does not appear to be responding to internal stimuli. Labs/Imaging/EKG: I reviewed the patient's new clinical lab test results. I reviewed the patient's medications. I reviewed the patient's new imaging test results. Emilee Griggs MD Hospitalist/Internal Medicine Pager: [phone] * Emi Cooper RN - 04/16/2023 7:06 AM CDT Med-Surg Care Progression Note Type: Shift to shift summary [id number] Length of stay: 1 days Code Status: Full Code Primary Problem: Spontaneous L sided pneumothorax. PMHX copd Summary: Lt chest tube to -20sxn. Continuous air leak grade 1. CXR this am completed. F- Feeding & Fluids: Tolerating regular diet A- Analgesic & Anticoagulation: Analgesic Dull pain to chest tube site. PRN tylenol and oxycodone, scheduled robaxin. Anticoagulation/DVT prevention & plan SCDs not indicated S- Skin: Total Renetta Score: 20: skin intact. Able to move in bed independently. T- Telemetry: No tele E- Emotional & Neuro: Participating in cares Neuro Alert and Oriented. R- Respiratory: home 02. On 3L 02. Left sided chest tube -20sxn. Air leak grade 1. No crepitus. Dounebs by RT. Pulling 1500 on IS. 30cc output from CT overnight H- Head OUT of Bed & Activity: Activate Fall Alert? (Enter 1 or 0): 1 Ambulating SBA U- Urologic/bowel: No data recorded Voiding without difficulty G- Glycemic Control: Not applicable T- Treatment: chest tube management, pain control, respiratory hygiene I- Invasive Devices: PIV x1, Chest tube D- Discharge: home when chest tube out BP 124/79 Pulse (!) 103 Temp 98.4 ??F (36.9 ??C) Resp 19 Ht 6' Wt 73 kg (160 lb 15 oz) SpO2 95% BMI 21.83 kg/m?? * Vicky Arzate RN - 04/15/2023 9:29 PM CDT Med-Surg Care Progression Note Type: Shift to shift summary [id number] Length of stay: 0 days Code Status: Full Code Primary Problem: Spontaneous L sided pneumothorax. PMHX copd Summary: Lt chest tube to -20sxn. Continuous air leak grade 1. CXR in am. F- Feeding & Fluids: Tolerating regular diet A- Analgesic & Anticoagulation: Analgesic Dull pain to chest tube site. PRN tylenol and oxycodone, scheduled robaxin. Anticoagulation/DVT prevention & plan SCDs not indicated S- Skin: Total Renetta Score: 20: skin intact. Able to move in bed independently. T- Telemetry: No tele E- Emotional & Neuro: Participating in cares Neuro Alert and Oriented. R- Respiratory: home 02. On 3L 02. Left sided chest tube -20sxn. Air leak grade 1. No crepitus. Dounebs by RT. Pulling 1500 on IS. H- Head OUT of Bed & Activity: Activate Fall Alert? (Enter 1 or 0): 1 Ambulating SBA U- Urologic/bowel: No data recorded Voiding without difficulty G- Glycemic Control: Not applicable T- Treatment: chest tube management, pain control, respiratory hygiene I- Invasive Devices: PIV x1, Chest tube D- Discharge: home when chest tube out * Carri Barr RN - 04/15/2023 6:33 PM CDT Med-Surg Care Progression Note Type: Shift to shift summary Length of stay: 0 days Code Status: Full Code Primary Problem: Spontaneous L-sided pneumothorax Hx: Severe COPD Summary: Patient admitted this morning. CT noted to have continuous air leak d/t to pneumothorax. Seen by pulmonary. F- Feeding & Fluids: Tolerating regular diet and thin liquids, good appetite A- Analgesic & Anticoagulation: Analgesic Pain stated, giving scheduled medications and PRNs available Anticoagulation/DVT prevention & plan SCDs not indicated S- Skin: Total Renetta Score: 20: Patient able to move and reposition independently, chest tube siteis CDI T- Telemetry: No tele E- Emotional & Neuro: Participating in cares Neuro Alert and Oriented R- Respiratory: 3L NC and Chest tube at -20 mmg continuous suction. Continuous, grade 1 air leak present. If air leak persists, repeat chest CT H- Head OUT of Bed & Activity: At baseline is mobile. Has felt tired/weak this shift so NOOB. U- Urologic/bowel: Voiding with urinal, but able to use bathroom as needed G- Glycemic Control: Not applicable T- Treatment: chest tube, monitor O2 levels, pain control I- Invasive Devices: PIV x2 D- Discharge: TBD * [place], RT - 04/15/2023 11:45 AM CDT Patient has orders for Duo Qid. Patient seen on Nasal Cannula at 3 LPM. SpO2: 100 %, Respirations: 13, Pulse: 87. Pre treatment Breath sounds All Spivey: Diminished;Wheeze;Expiratory. Patient received nebulizer as ordered via Delivery Device: Mouthpiece. Patient tolerated treatment well. Skin assessment: no issues. Refer to flowsheet for additional information if needed. documented in this encounter H&P Notes * Emilee Griggs MD - 04/15/2023 8:02 AM CDT Images from the original note were not included. HOSPITALIST DIVISION ADMISSION HISTORY AND PHYSICAL Patient Name: Carl Prasad Address: [address] [address] Age: 53 y.o. Sex: male Admission Date/Time: 04/15/2023 6:37 AM Primary Care Provider: Md Ariadna Informant: patient CHIEF COMPLAINT: SOB HPI: Carl Prasad is a 53 y.o. male with PMH significant for chronic hypoxic respiratory failure(on 3 LPM) 2/2 severe COPD, provoked DVT and PE not on AC who was admitted on 04/15/23 with shortness of breath, found to have a tension pneumothorax S/P chest tube placement. Patient reports that he awoke with chest pain and SOB 2 days ago. He was seen in the ED and symptoms thought to be MSK, so he was discharged home. His SOB and chest pain persisted and he awoke in themiddle of night yesterday with severe SOB so called EMS. Spo2 at home were in the 50's. In the ED at OSH, he was found to have a tension PTX and chest tube placed. He was transferred to [facility] for further management. Per ED notes, he was on high flow O2 upon arrival, but was able to be weaned down to 6 LPM prior to transfer. Currently, patient reports that his chest pain is improved and now only localized at the site of the chest tube. SOB improved, but he is very tired. No fever, chills, recent trauma. PAST MEDICAL HISTORY: Severe COPD Hx of provoked PE and DVT (due to surgeries) PAST SURGICAL HISTORY: R shoulder surgery PRIOR TO ADMISSION MEDICATIONS: Trelogy inhaler Intermittently uses asa ALLERGIES: Patient has no known allergies. FAMILY HISTORY: Family hx of CAD in maternal grandfather and uncles SOCIAL HISTORY: Social History Socioeconomic History Marital status: Single Spouse name: Not on file Number of children: Not on file Years of education: Not on file Highest education level: Not on file Occupational History Not on file Tobacco Use Smoking status: Not on file Smokeless tobacco: Not on file Substance and Sexual Activity Alcohol use: Not on file Drug use: Not on file Sexual activity: Not on file Other Topics Concern Not on file Social History Narrative Not on file Social Determinants of Health Financial Resource Strain: Not on file Food Insecurity: Not on file Transportation Needs: Not on file Physical Activity: Not on file Stress: Not on file Social Connections: Not on file Intimate Partner Violence: Not on file Housing Stability: Not on file REVIEW OF SYSTEMS: A comprehensive review of systems was negative except for items noted in the HPI/Subjective. PHYSICAL EXAM: BP (!) 133/91 Pulse 89 Temp 97.7 ??F (36.5 ??C) Resp 15 SpO2 100% GENERAL: The patient is well developed, non-toxic and in no acute distress. HEENT: Nonicteric sclerae. Moist mucous membranes. Conjunctivae appear well perfused. CHEST: Chest wall with chest tube in place to L chest with continuous airleak HEART: RRR. Peripheral pulses intact. LUNGS: Very decreased BS. No wheezing noted. No acute respiratory distress. ABDOMEN: Soft, normoactive BS, nontender. SKIN: No rash, no excessive bruising, petechiae, or purpura. Warm and well perfused. EXTREMITIES: No gross deformity. Moving all extremities comfortably. NEUROLOGIC: Alert. Oriented x 3. Normal speech. No tremor. PSYCH: Normal mood and affect. Does not appear to be responding to internal stimuli. PROCEDURES: Chest tube placement IMAGING: XRAY CHEST PORTABLE Result Date: 04/15/2023 EXAM: XR CHEST AP PORT DATE: 04/15/2023 7:00 AM CLINICAL DATA: Male, 53 years old, presents with shortness of breath. Left-sided tension pneumothorax. COMPARISON: No comparison. TECHNIQUE: Portable APsemiupright radiograph of the chest. INTERPRETATION: Small bore catheter projecting over the left upper thorax. There is a small left pneumothorax with apical predominant component. Lung edge projects over the level of the posterior left 3rd rib. No mediastinal shift. Subsegmental atelectasis in the left lower lobe retrocardiac region. No focal consolidation or large effusion. Heart size within normal limits. No pulmonary edema. No acute osseous abnormality. Partially visualized operative changes proximal right humerus. Upper abdominal bowel gas pattern is unremarkable. IMPRESSION: 1. Small bore catheter projecting over the left upper thorax. Small left pneumothorax with lung edge projecting at the level of the posterior left 3rd rib. No mediastinal shift. 2. Subsegmental left lower lobe atelectasis. REPORT SIGNED BY Nini Maier M.D. LABS: Results for orders placed or performed during the hospital encounter of 04/15/23 Basic Metabolic Profile Result Value Ref Range SODIUM 142 136 - 145 mmol/L POTASSIUM 4.6 3.4 - 5.1 mmol/L CHLORIDE 103 98 - 108 mmol/L CARBON DIOXIDE 35 (H) 20 - 31 mmol/L BUN (UREA NITRO) 10 9 - 23 mg/dL CREATININE 0.76 0.60 - 1.10 mg/dL EST GFR (CKD-EPI) >60.00 >60.00 mL/min/1.73m2 GLUCOSE 112 (H) 74 - 106 mg/dL CALCIUM, SERUM 9.3 8.7 - 10.4 mg/dL ANION GAP 4.0 0.0 - 15.0 mmol/L CBC w/diff Result Value Ref Range WBC 13.9 (H) 4.3 - 10.8 K/uL RBC 4.61 4.60 - 6.20 M/uL HEMOGLOBIN 13.3 (L) 14.0 - 18.0 gm/dL HEMATOCRIT 41.4 40.0 - 54.0 % MCV 90 80 - 100 fL MCH 29 27 - 33 pg MCHC 32 (L) 33 - 36 gm/dL RDW 12.2 11.5 - 14.5 % PLATELET COUNT 305 150 - 400 K/UL MPV 10.5 6.5 - 12 fL PMN % 84.3 % IG% 0.7 <=1.0 % LYMPH % 5.2 % MONO % 9.1 % EOS % 0.4 % BASO % 0.3 % PMN ABSOLUTE 11.75 (H) 1.80 - 7.80 K/uL IG ABSOLUTE 0.10 (H) 0.00 - 0.00 K/uL LYMPH ABSOLUTE 0.73 (L) 1.00 - 4.00 K/uL MONO ABSOLUTE 1.27 (H) 0.00 - 1.00 K/uL EOS ABSOLUTE 0.05 0.00 - 0.45 K/uL BASO ABSOLUTE 0.04 0.00 - 0.20 K/uL NUCL RBC % 0.0 0.0 - 0.0 /100 WBC NUCL RBC ABSOLUTE 0.00 0.00 - 0.00 K/uL LFTs Result Value Ref Range ALT <9 7 - 40 U/L ALKALINE P'TASE 85 46 - 116 U/L AST (SGOT) 8 (L) 13 - 40 U/L PROTEIN TOTAL 6.6 5.7 - 8.2 g/dL ALBUMIN 3.7 3.4 - 5.0 g/dL BILIRUBIN-DIRECT 0.11 <0.40 mg/dL BILIRUBIN-TOTAL 0.3 0.3 - 1.2 mg/dL Protime/INR Result Value Ref Range INR 1.0 0.9 - 1.2 EKG Result Value Ref Range EKG POCT VBG/Na/K/Glu Result Value Ref Range POCT pH Venous 7.25 (L) 7.30 - 7.40 POCT pCO2 Venous 86 (HH) 36 - 51 mm Hg POCT pO2 Venous 23 (L) 35 - 45 mm Hg POCT HCO3 VENOUS 38 (H) 22 - 29 mmol/L POCT BASE EXCESS 6.6 (H) -3.0 - 2.0 mmol/L POCT CSO2 27.8 (L) 92.0 - 98.0 %SAT POCT cTCO2 40.2 mmol/L POCT SODIUM 141 133 - 144 mmol/L POCT POTASSIUM 4.7 3.5 - 5.0 mmol/L POCT GLUCOSE 114 (H) 60 - 100 mg/dL POCT Ca, Ionized Result Value Ref Range POCT CA IONIZED 1.23 1.13 - 1.32 mmol/L POCT Lac Result Value Ref Range POCT LACTIC ACID 0.8 0.7 - 2.1 mmol/L POCT CREATININE Result Value Ref Range POCT Creatinine 0.8 0.7 - 1.3 mg/dL POCT Chloride Result Value Ref Range POCT CHLORIDE 100 99 - 111 mmol/L COVID-19 (PUI) Specimen: Nasopharynx Result Value Ref Range SARS-CoV-2 by PCR Negative for SARS-CoV-2 RNA by PCR Negative for SARS-CoV-2 RNA by PCR EKG: SR ADDITIONAL COMMENTS: I reviewed the patient's new clinical lab test results. I reviewed the patient's medications. I reviewed the patient's new imaging test results. ASSESSMENT/PLAN: Carl Prasad is a 53 y.o. male with PMH significant for chronic hypoxic respiratory failure (on 3 LPM) 2/2 severe COPD, provoked DVT and PE not on AC who was admitted on 04/15/23 with shortness of breath, found to have a tension pneumothorax S/P chest tube placement. Acute hypoxic respiratory failure 2/2 L sided tension pneumothorax S/P chest tube placement Found to have tension PTX at OSH ED, underwent needle decompression and chest tube placed. Continuous air leak noted upon and on high flow O2 on arrival. Dressing re-enforced and O2 needs decreased. Now on 3 LPM (baseline). CXR shows small bore catheter projecting over the left upper thorax. Small left pneumothorax with lung edge projecting at the level of the posterior left 3rd rib. No mediastinal shift. - pulmonology consulted, appreciate recs - defer CT to pulm, currently on continuous suction - acetaminophen, robaxin and oxycodone PRN Chronic hypoxic respiratory failure (on 3 LPM) 2/2 severe COPD Possible COPD exacerbation Noted to be diffusely wheezing on arrival. Very severe COPD at baseline and is being considered fortransplant but this far, he reports costs is prohibitive. 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 Patient requires hospitalization for PTX which has the following risk of morbidity and mortality: respiratory arrest and . Further, the acuity of this hospitalization is characterized as acute and is reflected in the following presenting signs, symptoms, and objective work up: need for chest tube. Unique to this patient, the following elements of their past medical history - severe COPD - increase therisk and complexity of managing this patient because if this patient were to discharge today, this could result in significant disability, illness, or . This patient will require hospital services as outlined in the assessment and plan in order to stabilize and be safely discharged to a lower level of care. Because of the risk and acuity as described above, this patient cannot be managed at a lower level of care. LENGTH OF STAY: IP - Anticipated LOS >2Midnights due to acuity of clinical presentation requiring inpatient level of care Time: 70 minutes Emilee Griggs MD documented in this encounter Procedure Notes * Lauren Shah, TRISTAN, HELMET COVERER - 04/17/2023 10:23 AM CDT Procedure Consent Name: Carl Prasad Date Seen: 04/17/2023 PCP: Rohan Saldaña MD Carl Prasad is a 53 y.o. male seen and examined by myself and Dr. Felix. Patient is seen todayfor an image-guided placement of a left chest tube. Clinical data: Left pneumothorax Past Medical History: Diagnosis Date COPD (chronic obstructive pulmonary disease) (HCC) Deep vein thrombosis (DVT) (HCC) Past Surgical History: Procedure Laterality Date ORTHOPEDICS Recent Results (from the past 24 hour(s)) EKG Collection Time: 04/17/23 5:52 AM Result Value Ref Range EKG High-Sensitivity Troponin I (TNIH) Collection Time: 04/17/23 6:46 AM Result Value Ref Range HIGH-SENSITIVITY TROPONIN I 10 <=53 ng/L Allergies No Known Allergies Medications reviewed. Not on anticoagulant therapy. A description of the procedure was discussed with the patient along with alternatives and risks, including but not limited to bleeding, infection and possible injury to adjacent structures. All questions answered. Patient wishes to proceed. Consent signed. Lauren Shah APRN, CNP [facility] Pager Number: Radiology Office: documented in this encounter Consult Notes * Roge Gonzalez, RD - 04/19/2023 10:45 AM CDTAssociated Order(s): CONSULT DIETITIAN Nutrition Assessment Reason for Assessment: Consult: Supplement Request Malnutrition : Does not meet malnutrition criteria This may change per physician's clinical assessment. Loss of Muscle Mass: Not present Loss of Subcutaneous Fat: Not present Energy Intake: Adequate intakes Interpretation of Weight Loss: No significant weight loss appreciated NUTRITION INTERVENTION, MONITORING, AND EVALUATION Interventions/Recommendations: Nutrition Prescription: Level 7 Regular with Level 0 Thin Medical Food Supplements: BID; Boost Plus or comparable Goal: Meet greater than 75% of estimated needs during hospital admission Evaluation: Likely met; current goal still appropriate, continue Monitor for next visit: PO intakes Nutrition Care Level: Low (f/u within 7 days) NUTRITION-RELATED ASSESSMENT Reason for admission: Spontaneous pneumothorax PMH: Past Medical History: Diagnosis Date COPD (chronic obstructive pulmonary disease) (HCC) Deep vein thrombosis (DVT) ([facility]) Dietitian Visit Summary: 04/19/23: Open to Boost Plus supplements to help with protein adequacy. Now with planned surgery. 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 Other Pertinent Factors: NA Anthropometric/Physical: Height: 6' (182.9 cm) Admitting Weight: 73 kg (161 lb), Actual Weight: 73 kg (160 lb 15 oz) IBW: 81 kg +/- 10%, 90% IBW Body mass index is 21.83 kg/m??., BMI Category: Normal (18.5-24.9) Actual weight change at admission: stable overall Clinically significant for malnutrition: No Weight Readings: Wt Readings from Last 10 Encounters: 04/15/23 73 kg (160 lb 15 oz) 68.5 kg (151 lb 0.2 oz) 09/09/2015 Skin: Reviewed Digestive System: no concerns Last bowel movement: Size: Medium (04/19/2023 10:44 AM) Bowel Meds: on NOV for PRN Labs: Lab Results Component Value Date ALBUMIN 3.7 04/15/2023 GLUCOSE 95 04/18/2023 GLUCOSE 112 (H) 04/16/2023 GLUCOSE 112 (H) 04/15/2023 GLUCOSE 114 (H) 04/15/2023 Lab Results Component Value Date SODIUM 139 04/18/2023 SODIUM 139 04/16/2023 POTASSIUM 4.3 04/18/2023 POTASSIUM 4.7 04/15/2023 MAGNESIUM 1.6 04/18/2023 CALCIUMSERUM 9.4 04/18/2023 BUNUREANRO 11 04/18/2023 CREATININE 0.74 04/18/2023 CREATININE 0.8 04/15/2023 Medications Reviewed: Current Facility-Administered Medications Medication Dose Route Frequency Provider Last Rate Last Admin saline FLUSH syringe 10 mL 10 mL Intravenous Q8H Emilee Griggs MD 10 mL at 04/19/23 0623 saline FLUSH syringe 10 mL 10 mL Intravenous PRN Emilee Griggs MD 10 mL at 04/17/23 0909 acetaminophen (TYLENOL) tablet 325-650 mg 1-2 tablet oral Q4H PRN Emilee Griggs MD 650 mg at 04/19/23 0623 albuterol-ipratropium (conc: 3-0.5mg/3mL) (DUO-NEB) nebulizer solution 3 mL 1 ampule Nebulization QID-RESPIRATORY Emilee Griggs MD 3 mL at 04/19/23 0808 cefTRIAXone (Rocephin) 2 g in sodium chloride 0.9 % 100 mL IV piggyback 2 g Intravenous Q24H (NS) Dhaval Yao MD 200 mL/hr at 04/18/23 1028 2 g at 04/18/23 1028 fluticasone 100 mcg-vilanterol 25 mcg (BREO) inhaler 1 Inhalation 1 Inhalation Inhalation DAILY Dhaval Yao MD 1 Inhalation at 04/19/23 0822 lidocaine (LMX-4) topical cream 1 Application 1 Application topical PRN Emilee Griggs MD lidocaine / sod bicarb (buffered lidocaine) syringe for IV starts 0.1-0.3 mL 0.1-0.3 mL IntradermalPRN Emilee Griggs MD lidocaine 1% injection (conc: 10 mg/mL) 0.1-0.3 mL 0.1-0.3 mL Intradermal PRN Emilee Griggs MD melatonin tablet 3 mg 3 mg oral Q BEDTIME Pauline Rangel DO 3 mg at 04/18/23 2207 methocarbamoL (ROBAXIN) tablet 500 mg 500 mg oral QID Emilee Griggs MD 500 mg at 04/19/23 0822 MORphine injection (conc: 2 mg/mL) 1-2 mg 1-2 mg Intravenous Q3H PRN Pauline Rangel DO 2 mg at 04/17/23 2215 ondansetron (ZOFRAN) injection 4-8 mg 4-8 mg Intravenous Q8H PRN Emilee Griggs MD Or ondansetron (ZOFRAN) disintegrating tablet 4-8 mg 4-8 mg oral Q8H PRN Emilee Griggs MD oxyCODONE (immediate release) (ROXICODONE) tablet 5 mg 5 mg oral Q6H PRN Emilee Griggs MD 5 mg at 04/19/23 0623 senna-docusate (SENNA-S) tablet 1-2 tablet 1-2 tablet oral BID PRN Sravani Chaudhary MBBS Nutrition Diagnosis No nutrition diagnosis at this time Stacy Gonzalez RD LD Available via [employer] * Martin Khan, PT - 04/17/2023 9:30 AM CDT Acute Physical Therapy Evaluation Patient Name: Carl Prasad Today's Date: 04/17/2023 Admission Date: 04/15/2023 Assessment PT Assessment/Recommendations Assessment: Pt is a 53 yo male admitted for tension pneumothorax. 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 Currenlty requiring CGA for transfers and short bout of ambulation. Pt mildlyunsteady throughout, but no overt LOB. Sats in low-mid 90s throughout session on 3.5L (3L baseline). Towards the end of session, central processing technician came to assess pt and reported need for adding new chest tube. Requested to hold further therapy until then. Currently recommend assist x1 for mobility and continued skilled PT to further address impairments. Strengths: Age, Prior level of function, Patient motivation Limitations/Discharge Barriers: Lives alone, Current medical status, Limited mobility, Decreased activity tolerance Endurance: Participates 20-30 min of therapy session Prognosis: Good Recommendations for Nursing: Mobilize assist of 1 with gait belt, Up to chair 2- 3x/day, Ambulate 2-3x/day, Use of assistive device with mobility Type of Assistive Device: RW prn Discharge Support Recommendations: Requires increased support/assist Mobility Needs at Discharge: Assist of 1 person with mobility Post Acute Therapy Needs: Continued PT at next level of care Plan PT Frequency: 1x/day, 3-5 days a week Interventions: Gait training, Therapeutic exercise, Therapeutic activities, Neuromuscular re-education Encounter Details General Diagnosis: Tension pneumothorax Admission/Diagnosis Details: Pt admitted for SOB and found to have tension pneumothorax Pertinent Past Medical History: chronic hypoxic respiratory failure (on 3 LPM) 2/2 severe COPD, provoked DVT and PE not on AC Patient Seen In: Room Family/Caregiver Present: No Subjective Comments: Return home Lines and Tubes: Chest Tube (L) Subjective/Social History Home Setup Type of Home: Apartment Lives With: Alone Home Layout: One level Home Entry: Stairs to enter with rails Rails: Bilateral Number of stairs: 2 flights Prior Level of Functional Mobility Independent with: All Mobility Mobility Equipment Used: None DME owned: None History of falls: Denies Pain Patient complained of 4/10 pain at chest tube site Objective Cognitive Status Orientation Level: Oriented X4 Arousal/Alertness: Appropriate responses to stimuli Following Commands: Follows multistep commands Safety Judgment: Intact Motor Planning/Processing: Within Functional Limits Therapy Vitals SpO2: 92-95% Oxygen Delivery Device: Nasal Cannula Amount of Supplementary O2: 3.5L ROM RLE: WFL LLE: WFL Strength Overall RLE Strength: WFL Overall LLE Strength: WFL Comments: Grossly 3+/5 B LE Sensation Light Touch: No apparent deficits Patient is functioning as follows: Balance Balance: Static Sitting Balance, Static Standing Balance Static Sitting Balance Balance Support: No upper extremity support, Feet supported Level of Assistance: Independent Surface Type: Bed Duration: 5 minutes Rating: Good Static Standing Balance Balance Support: No upper extremity support Level of Assistance: Contact guard assist/steadying assist, Minimal assist Position: Feet shoulder width apart Surface: Level [place] Duration: 3 minutes Rating: Fair (Fair+) Bed Mobility Roll Right: Standby assist Roll Left: Standby assist Supine to Sit: Standby assist Sit to Supine: Standby assist Dangling: Independent Transfers Transfer Type: Sit to/from Stand, Stand Pivot Sit to/from Stand Level of Assist: Contact guard/steadying assist Assistive Device: No assistive device Stand Pivot Stand Pivot Level of Assistance: Contact guard/steadying assist Stand Pivot Assistive Device: No assistive device Ambulation Ambulation Assessment: Bout 1 Bout 1 Distance (ft): 15' x2 Assistive Device: No assistive device Level of Assist: Contact guard/steadying assist Quality of Gait: Slow, mildly unsteady gait with no overt LOB [facility] AM-PAC 6-Clicks Turning over in bed (including adjusting bed clothes, sheets, and blankets): Minimum/contact guard/standby assist Sitting down and standing up from a chair with arms: Minimum/contact guard/standby assist Moving from lying on back to sitting on the side of bed: Minimum/contact guard/standby assist Moving to and from a bed to a chair: Minimum/contact guard/standby assist Walk in hospital room?: Minimum/contact guard/standby assist Climbing 3-5 steps with a railing: Maximum/moderate assist AM-PAC 6 Clicks: Mobility Total Score: 17 The following scores are predictive of discharge disposition during acute hospitalization: Home= 20or greater; Home with Home Health=18; Continued skilled care at appropriate facility= 14 or less. Education/Safety Education Provided Patient Education: Role of PT, ROM/Positioning, Bed mobility, Transfers, Ambulation, Safety with mobility, Plan of care, Risk of falls, Discharge recommendations Family Education: Family not present Safety Interventions Fall Risk?: Yes Safety Interventions/Patient Disposition: Standard interventions, Bed alarm on, In bed, All needs within reach Goals Time Frame Goals target date: 05/01/23 Patient/family participation in goal setting Patient/family participation in goal setting: Yes Patient goal preference: Return home Supine to Sit Patient will perform supine to sit with: Emanuel Sit to/from Stand Patient will perform sit to/from stand transfer with: Emanuel Assistive Device: No assistive device Gait Level of Assist: Independent Assistive Device: No assistive device Distance: 150' Stair Negotiation Patient will perform stairs with: Modified independence UE Support: Bilateral rails Number of Stairs: 12 Pattern: Step to pattern TIME SPENT WITH PATIENT PT Time Spent with Patient for Evaluation PT Evaluation: 10 PT Timed Code Treatment Minutes (outside of evaluation) PT Therapeutic Activity: 10 PT Gait Trainin PT Timed Code Treatment Minutes PT Total Billable Minutes: 23 Minutes * Harriet Meneses MD - 04/15/2023 12:49 PM CDTAssociated Order(s): CONSULT PULMONARY MEDICINE PULMONARY CONSULTATION NOTE Patient Name: Carl Prasad Address: [address] [place] [id number] Age:53 y.o. Sex: male Admission Date/Time: 04/15/2023 6:37 AM [facility] Attending Physician: Emilee Griggs MD I was asked to see this patient at the request of Dr. Griggs for evaluation of left sided pneumothorax. HPI: 53 yo gentleman with history of severe COPD (followed by pulmonary in [place]). Developed left chest pain yesterday. Then went to [facility] - left ptx noted. Concern for tension -needle aspiration completed, then left chest tube placed. At baseline: severe COPD. Followed by a central processing technician in [place] - he couldn't remember the nameat the time of my visit. Has been referred to [facility] for consideration of lung transplant. Denied perfinancials (they apparently require a $30K upfront fee with his insurance). Home meds: Trelegy, prn albuterol - uses this almost every day Hasd home O2 at 3LPM continuous, doesn't have a home oximeter yet Didn't do any heavy lifting or have a coughing fit prior to onset of his chest pain yesterday. Alsodidn't SCUBA dive. With his permission, I reviewed pulmonary records from [facility] transplant evaluation. He was determined to be ineligible on 03/16/23 - no further data available. He had considered starting pulmonary rehab through [place] in January, but hasn't started this due to unknown insurance coverage. PAST MEDICAL HISTORY COPD PAST SURGICAL HISTORY Lumbar diskectomy CURRENT MEDS Current Facility-Administered Medications Medication Dose Route Frequency Provider Last Rate Last Admin saline FLUSH syringe 10 mL 10 mL Intravenous Q8H Emilee Griggs MD saline FLUSH syringe 10 mL 10 mL Intravenous PRN Emilee Griggs MD acetaminophen (TYLENOL) tablet 325-650 mg 1-2 tablet oral Q4H PRN Emilee Griggs MD 650 mg at 04/15/23 1156 albuterol-ipratropium (conc: 3-0.5mg/3mL) (DUO-NEB) nebulizer solution 3 mL 1 ampule Nebulization QID-RESPIRATORY Emilee Griggs MD 3 mL at 04/15/23 1144 lidocaine (LMX-4) topical cream 1 Application 1 Application topical PRN Emilee Griggs MD lidocaine / sod bicarb (buffered lidocaine) syringe for IV starts 0.1-0.3 mL 0.1-0.3 mL IntradermalPRN Emilee Griggs MD lidocaine 1% injection (conc: 10 mg/mL) 0.1-0.3 mL 0.1-0.3 mL Intradermal PRN Emilee Griggs MD methocarbamoL (ROBAXIN) tablet 500 mg 500 mg oral QID Emilee Griggs MD 500 mg at 04/15/23 1156 ondansetron (ZOFRAN) injection 4-8 mg 4-8 mg Intravenous Q8H PRN Emilee Griggs MD Or ondansetron (ZOFRAN) disintegrating tablet 4-8 mg 4-8 mg oral Q8H PRN Emilee Griggs MD oxyCODONE (immediate release) (ROXICODONE) tablet 5 mg 5 mg oral Q6H PRN Emilee Griggs MD 5 mg at 04/15/23 1156 ALLERGIES/SENSITIVITIES No Known Allergies FAMILY HISTORY No family history on file. SOCIAL HISTORY Social History Socioeconomic History Marital status: Single Spouse name: Not on file Number of children: Not on file Years of education: Not on file Highest education level: Not on file Occupational History Not on file Tobacco Use Smoking status: Not on file Smokeless tobacco: Not on file Substance and Sexual Activity Alcohol use: Not on file Drug use: Not on file Sexual activity: Not on file Other Topics Concern Not on file Social History Narrative Not on file Social Determinants of Health Financial Resource Strain: Not on file Food Insecurity: Not on file Transportation Needs: Not on file Physical Activity: Not on file Stress: Not on file Social Connections: Not on file Intimate Partner Violence: Not on file Housing Stability: Not on file Smoked a lot - quit a few years ago. REVIEW OF SYSTEMS A comprehensive review of systems was negative except for items noted in the HPI/Subjective. PHYSICAL EXAM BP 128/84 Pulse 87 Temp 98.2 ??F (36.8 ??C) Resp 13 Ht 6' (1.829 m) Wt 73 kg (160 lb 15 oz) SpO2 100% BMI 21.83 kg/m?? Temp (24hrs), Av ??F (36.7 ??C), Min:97.7 ??F (36.5 ??C), Max:98.2 ??F (36.8 ??C) GENERAL APPEARANCE: He is awake and alert, grimaces with cough HEENT: O2 by NC at 4LPM (uses 3LPM baseline) NECK: Supple with no adenopathy. Trachea is midline. No stridor. No SQ air at neck base. RESPIRATORY: decreased breath sounds throughout, scattered wheezes CARDIOVASCULAR: Normal S1, normal S2, regular rhythmn, without murmur. GASTROINTESTINAL: Soft, scaphoid abdomen, bowel sounds present HEME/LYMPH/IMMUNOLOGIC: No unusual bleeding or bruising SKIN: Intact, warm, dry. No rashes or lesions. NEUROLOGIC: alert and oriented, moves all extremities. Non-focal exam. EXTREMITIES: No edema or cyanosis. Results for orders placed or performed during the hospital encounter of 04/15/23 (from the past 24 hour(s)) POCT VBG/Na/K/Glu Result Value Ref Range POCT pH Venous 7.25 (L) 7.30 - 7.40 POCT pCO2 Venous 86 (HH) 36 - 51 mm Hg POCT pO2 Venous 23 (L) 35 - 45 mm Hg POCT HCO3 VENOUS 38 (H) 22 - 29 mmol/L POCT BASE EXCESS 6.6 (H) -3.0 - 2.0 mmol/L POCT CSO2 27.8 (L) 92.0 - 98.0 %SAT POCT cTCO2 40.2 mmol/L POCT SODIUM 141 133 - 144 mmol/L POCT POTASSIUM 4.7 3.5 - 5.0 mmol/L POCT GLUCOSE 114 (H) 60 - 100 mg/dL POCT Ca, Ionized Result Value Ref Range POCT CA IONIZED 1.23 1.13 - 1.32 mmol/L POCT Lac Result Value Ref Range POCT LACTIC ACID 0.8 0.7 - 2.1 mmol/L POCT CREATININE Result Value Ref Range POCT Creatinine 0.8 0.7 - 1.3 mg/dL POCT Chloride Result Value Ref Range POCT CHLORIDE 100 99 - 111 mmol/L Basic Metabolic Profile Result Value Ref Range SODIUM 142 136 - 145 mmol/L POTASSIUM 4.6 3.4 - 5.1 mmol/L CHLORIDE 103 98 - 108 mmol/L CARBON DIOXIDE 35 (H) 20 - 31 mmol/L BUN (UREA NITRO) 10 9 - 23 mg/dL CREATININE 0.76 0.60 - 1.10 mg/dL EST GFR (CKD-EPI) >60.00 >60.00 mL/min/1.73m2 GLUCOSE 112 (H) 74 - 106 mg/dL CALCIUM, SERUM 9.3 8.7 - 10.4 mg/dL ANION GAP 4.0 0.0 - 15.0 mmol/L CBC w/diff Result Value Ref Range WBC 13.9 (H) 4.3 - 10.8 K/uL RBC 4.61 4.60 - 6.20 M/uL HEMOGLOBIN 13.3 (L) 14.0 - 18.0 gm/dL HEMATOCRIT 41.4 40.0 - 54.0 % MCV 90 80 - 100 fL MCH 29 27 - 33 pg MCHC 32 (L) 33 - 36 gm/dL RDW 12.2 11.5 - 14.5 % PLATELET COUNT 305 150 - 400 K/UL MPV 10.5 6.5 - 12 fL PMN % 84.3 % IG% 0.7 <=1.0 % LYMPH % 5.2 % MONO % 9.1 % EOS % 0.4 % BASO % 0.3 % PMN ABSOLUTE 11.75 (H) 1.80 - 7.80 K/uL IG ABSOLUTE 0.10 (H) 0.00 - 0.00 K/uL LYMPH ABSOLUTE 0.73 (L) 1.00 - 4.00 K/uL MONO ABSOLUTE 1.27 (H) 0.00 - 1.00 K/uL EOS ABSOLUTE 0.05 0.00 - 0.45 K/uL BASO ABSOLUTE 0.04 0.00 - 0.20 K/uL NUCL RBC % 0.0 0.0 - 0.0 /100 WBC NUCL RBC ABSOLUTE 0.00 0.00 - 0.00 K/uL LFTs Result Value Ref Range ALT <9 7 - 40 U/L ALKALINE P'TASE 85 46 - 116 U/L AST (SGOT) 8 (L) 13 - 40 U/L PROTEIN TOTAL 6.6 5.7 - 8.2 g/dL ALBUMIN 3.7 3.4 - 5.0 g/dL BILIRUBIN-DIRECT 0.11 <0.40 mg/dL BILIRUBIN-TOTAL 0.3 0.3 - 1.2 mg/dL Protime/INR Result Value Ref Range INR 1.0 0.9 - 1.2 COVID-19 (PUI) Specimen: Nasopharynx Result Value Ref Range SARS-CoV-2 by PCR Negative for SARS-CoV-2 RNA by PCR Negative for SARS-CoV-2 RNA by PCR EKG Result Value Ref Range EKG ADDITIONAL COMMENTS: I reviewed the patient's new clinical lab test results. I reviewed the patient's medications. I reviewed the patient's new imaging test results. I personally viewed the patient's CXR. CONSULTATION ASSESSMENT AND PLAN/RECOMMENDATIONS: Principal Problem: Spontaneous pneumothorax Left sided pneumothorax - suspect secondary to severe COPD Chest tube placed 04/15 - continuous suction. There is a near continuous air leak. CXR shows good re-expansion, although a small ptx remains. In general - continuous suction to chest tube. If air leak persists for the next couple days, will then check CT chest. Given the reported severe underlying COPD (transplant evaluation completed at [facility] ) - hope to avoid surgery as able. Pain meds per hospital medicine Would also hold on further doses of steroids as this might slow pleural healing. Agree with changing home Trelegy to DuoNebs for now If he has any change / worsening of pain or breathing - check chest tube for kinking, get CXR and please page pulmonary. I thank Dr. Griggs for the opportunity to participate in the patient's care. Harriet Meneses MD * Harriet Meneses MD - 04/15/2023 10:46 AM CDT Prelim pulmonary consult - full note to follow Very severe COPD. Followed by pulmonary. Was referred to [facility] for consideration of lung transplant - declined due to finances. Developed dyspnea yesterday. PCP thought it might be a pulled muscle. Then went to [facility] - left ptx noted. Left chest tube placed - this led to improvement in dyspnea. There is a near continuous air leak via the left chest tube. BP 128/84 Pulse 87 Temp 98.2 ??F (36.8 ??C) Resp 13 Ht 6' (1.829 m) Wt 73 kg (161 lb) SpO2 100% BMI 21.84 kg/m?? General: able to speak in full sentences HEENT: no sq air at neck base CV: RRR Lungs: decreased breath sounds throughout, scattered wheezes Left chest tube in place, near continuous air leak present Assessment: Left sided pneumothorax secondary to COPD Left sided chest tube in place Keep chest tube on continuous suction Home meds: Trelegy - agree with duoNebs for now. Hold on prednisone - this can slow healing of the ptx Pain management per hospitalist Harriet Meneses MD documented in this encounter Nursing Notes * Tesha Shafer - 04/28/2023 11:13 AM CDT Patient has orders for Duo neb QID. Patient seen on Nasal Cannula at 4 LPM. SpO2: 95 %, Respirations: 19, Pulse: 97. Pre treatment Breath sounds All Spivey: Clear;Diminished. Patient received nebulizer as ordered via Delivery Device: Mask. Patient tolerated treatment well. Skin assessment: no breakdown and no concerns. Pt will possibly be leaving at 1300. Refer to flowsheet for additional information if needed. * Leidy Ojeda RN - 04/28/2023 11:11 AM CDT 04/28/2023 Care Management-Discharge Plan Finalization Discharge Date: 04/28/2023 Time: 12:30 Discharge Needs: tcu Discharge Location: Selected Continued Care - Admitted Since 04/15/2023 Destination Coordination complete. Service Provider Selected Services Address Phone Fax Patient Preferred [facility] Residential [phone] [facility] [phone] -- Internal Comment last updated by Leidy Ojeda RN 04/28/2023 1045 [facility] 04/28/2023 Spoke with Erinn, they will take pt earliest 1 pm . Cm updated pt and care team. Serena/blair 04/27/2023 Called and updated Erinn @admission d/c pending medical stability. Will update tcu tomorrow. Serena/blair 04/26/2023 LVM for Melania drake , up dating her that CT is removed on 04/25, waiting for a call back. Andriy.leonor/blair 04/26/2023 Spoke with Erinn, she stated her coworker is reviewing and will call us back .cy 04/25/2023@2:31 PM Called [phone] , spoke with Erinn, confirmed they received the referral. Referral under review, they will call us back with update. .leonor/blair 04/25/2023@11:42 AM Called [phone] spoke with admission. They have bed, requested referral faxed over. Referral faxed to [phone] per request..leonor/ PAS: [id number] Oxygen: 3-4L NC , portable O2 from [facility] in the room Transportation: Family/friend Additional cost of transportation discussed with patient/family: N/a D/C orders, prescriptions and PAS were faxed to: [phone] ,@ 11:18 AM , phone # [phone], Updated Patient, Bedside RN, payroll technician, Provider, GENERAL MANAGER [employer] DEPARTMENT, and Care facility of discharge arrangements. - Aggie called from tcu and wants the pt to know they are non smoke facility. Cm met with pt & family in the room and communicated to the pt. Leidy Ojeda RN chemistry physics teacher Pager [phone] * Kiki Estrada, RT - 04/28/2023 7:33 AM CDT Patient has orders for Duo neb Qid. Patient seen on Nasal Cannula at 4 LPM. SpO2: 95 %, Respirations: 18, Pulse: 95. Pre treatment Breath sounds All Spivey: Clear;Diminished;Wheeze;Expiratory. Patient received nebulizer as ordered via Delivery Device: Mask. Patient tolerated treatment well. Skin assessment: good Refer to flowsheet for additional information if needed. 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 Referred to [facility] for lung transplant eval but declined due to finances and ongoing occasional smoking. Post-surgical leukocytosis. 04/20: TALC pleurodesis (POD x6) 04/25 Chest tubes removed Summary: No CP or SOB episodes this shift. Tolerating 3-4 L NC while resting, requires 6L with activity. Pulmonology ordered PO prednisone, plan to reevaluate plan for possible d/c today. Home O2 delivered for transport to TCU. O2 canister in pt room. F- Feeding & Fluids: Tolerating regular diet. A- Analgesic & Anticoagulation: Comfort Goal: Numeric, Verbal, Faces: 2 Analgesic Pain 3-5 soreness on L side, improves with rest and sched. Robaxin. PRN Tylenol, oxycodone, and toradol available but not given. Anticoagulation/DVT prevention & plan SCDs S- Skin: Renetta Subcategory Concern(s): Sensory Perception: No Impairment Moisture: Rarely Moist Activity: Walks Occasionally Activity Interventions: Appropriate surface in while in chair Nutrition: Adequate Nutrition Interventions: Calorie intake Mobility: Slightly Limited Mobility Interventions: Low air loss support Friction and Shear: No Apparent Problem Total Renetta Score: 20: Pt's mobility improving, able to ambulate independently in room and SBA in ho T- Telemetry: Rhythm: Sinus Tachycardia Ectopy: Premature Ventricular Contraction Telemetry dcc'd E- Emotional & Neuro: Participating in cares Neuro Alert and Oriented R- Respiratory: Respiratory device 3 L NC (baseline) Home O2 delivered for transport to TCU. O2 canister in pt room. Increase O2 to 6L for ambulation. H- Head OUT of Bed & Activity: Activate Fall Alert? (Enter 1 or 0): 1 Ambulating SBA with walker Progressive mobility Phases 5-7: Phase 5: 10 steps or more U- Urologic/bowel: Size: Large (04/27/2023 11:00 AM) Voiding in urinal, one BM early this AM G- Glycemic Control: Not applicable T- Treatment: Pain management, PT/OT, monitor respiratory status I- Invasive Devices: PIV x1 D- Discharge: TCU bed being held. Potentially d/c tomorrow pending respiratory status * Kelsie Esparza RT - 04/27/2023 8:00 PM CDT Patient has orders for Duoneb QID. Patient seen on Nasal Cannula at 4 LPM. SpO2: 92 %, Respirations: 18, Pulse: (!) 117. Pre treatment Breath sounds All Spivey: Diminished. Patient received nebulizer as ordered via Delivery Device: Mask. Patient tolerated treatment well. Skin assessment: No issues. Refer to flowsheet for additional information if needed. 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 Referred to [facility] for lung transplant eval but declined due to finances and ongoing occasional smoking. Post-surgical leukocytosis. 04/20: TALC pleurodesis (POD x6) 04/25 Chest tubes removed Summary: No CP or SOB episodes this shift. Tolerating 3-4 L NC while resting, requires 6L with activity. Pulmonology ordered PO prednisone, plan to reevaluate plan for d/c tomorrow. Home O2 delivered for transport to TCU. O2 canister in pt room. F- Feeding & Fluids: Tolerating regular diet. A- Analgesic & Anticoagulation: Comfort Goal: Numeric, Verbal, Faces: 2 Analgesic Pain 3-5 soreness on L side, improves with rest and sched. Robaxin. PRN Tylenol, oxycodone, and toradol available but not given. Anticoagulation/DVT prevention & plan SCDs S- Skin: Renetta Subcategory Concern(s): Sensory Perception: No Impairment Moisture: Rarely Moist Activity: Walks Occasionally Activity Interventions: Appropriate surface in while in chair Nutrition: Adequate Nutrition Interventions: Calorie intake Mobility: Slightly Limited Mobility Interventions: Low air loss support Friction and Shear: No Apparent Problem Total Renetta Score: 20: Pt's mobility improving, able to ambulate independently in room and SBA in ho T- Telemetry: Rhythm: Sinus Tachycardia Ectopy: Premature Ventricular Contraction Telemetry dcc'd E- Emotional & Neuro: Participating in cares Neuro Alert and Oriented R- Respiratory: Respiratory device 3 L NC (baseline) Home O2 delivered for transport to TCU. O2 canister in pt room. Increase O2 to 6L for ambulation. H- Head OUT of Bed & Activity: Activate Fall Alert? (Enter 1 or 0): 1 Ambulating SBA with walker Progressive mobility Phases 5-7: Phase 5: 10 steps or more U- Urologic/bowel: Size: Large (04/27/2023 11:00 AM) Voiding in urinal, one BM early this AM G- Glycemic Control: Not applicable T- Treatment: Pain management, PT/OT, monitor respiratory status I- Invasive Devices: PIV x1 D- Discharge: TCU bed being held. Potentially d/c tomorrow pending respiratory status * Linh Chowdary, RT - 04/27/2023 3:30 PM CDT Problem: Impaired Respiratory Status Goal: Bronchodilation Outcome: Met this shift Note: Patient has orders for duo-neb. Patient seen on Nasal Cannula at 4 LPM. SpO2: 94 %, Respirations: 18, Pulse: (!) 122. Pre treatment Breath sounds All Spivey: Diminished. Patient received nebulizer as ordered via Delivery Device: Mask. Patient tolerated treatment well. Refer to flowsheet for additional information if needed. * Leidy Ojeda RN - 04/27/2023 3:12 PM CDT 04/27/2023 Care Management - Progress Note Patient's chart reviewed. Patient discussed in rounds. Assessment: Spontaneous pneumothorax Anticipated Discharge Date: tbd Anticipated Discharge Needs: tcu Selected Continued Care - Admitted Since 04/15/2023 Destination Coordination complete. Service Provider Selected Services Address Phone Fax Patient Preferred [facility] Residential [phone] [facility] [phone] -- Internal Comment last updated by Leidy Ojeda RN 04/27/2023 1515 04/27/2023 Called and updated Erinn @admission d/c pending medical stability. Will update tcu tomorrow. Ma/cm 04/26/2023 LVM for Melania drake , up dating her that CT is removed on 04/25, waiting for a call back. M.a/cm 04/26/2023 Spoke with Erinn, she stated her coworker is reviewing and will call us back .ma/cm 04/25/2023@2:31 PM Called [phone] , spoke with Erinn, confirmed they received the referral. Referral under review, they will call us back with update. m.a/cm 04/25/2023@11:42 AM Called [phone] spoke with admission. They have bed, requested referral faxed over. Referral faxed to [phone] per request.m.a/cm Potential Barriers: medical stability Care Coordination Plan & Communication with Patient/Family: pt discussed in rounding, chart reviewed. 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 Referred to [facility] for lung transplant eval but declined due to finances and ongoing occasional smoking. Post-surgical leukocytosis. 04/20: TALC pleurodesis (POD x6) 04/25 Chest tubes removed Summary: Developed CP, became SOB and started hyperventilating just before shift change, requiring 6L NC. Breathing improved after duoneb, but pt continues to having wheezing and tight LS. Tolerating 3-4 L NCwhile resting, requires 6L with activity. Pulmonology ordered PO prednisone, plan to reevaluate plan for d/c tomorrow. Home O2 delivered for transport to TCU. O2 canister in pt room. F- Feeding & Fluids: Tolerating regular diet. A- Analgesic & Anticoagulation: Comfort Goal: Numeric, Verbal, Faces: 2 Analgesic Pt denied any pain today. L sided soreness improves with scheduled Robaxin. PRN Tylenol, oxycodone, and toradol available. Anticoagulation/DVT prevention & plan SCDs S- Skin: Renetta Subcategory Concern(s): Sensory Perception: No Impairment Moisture: Rarely Moist Activity: Walks Occasionally Activity Interventions: Appropriate surface in while in chair Nutrition: Adequate Nutrition Interventions: Dietary supplement and Calorie intake Mobility: Slightly Limited Mobility Interventions: Low air loss support Friction and Shear: No Apparent Problem Total Renetta Score: 20: Pt more able to move and is shifting own weight T- Telemetry: Rhythm: Sinus Tachycardia Ectopy: Premature Ventricular Contraction E- Emotional & Neuro: Participating in cares and improved affect Neuro Alert and Oriented R- Respiratory: Respiratory device 3 L NC (baseline) Home O2 delivered for transport to TCU. O2 canister in pt room. H- Head OUT of Bed & Activity: Activate Fall Alert? (Enter 1 or 0): 1 Ambulating occasionally, SBA with walker Progressive mobility Phases 5-7: Phase 5: 10 steps or more U- Urologic/bowel: Size: Medium (04/26/2023 7:00 PM) Voiding in urinal, one BM early this AM G- Glycemic Control: Not applicable T- Treatment: Pain management, PT/OT, monitor respiratory status I- Invasive Devices: PIV D- Discharge: TCU bed being held. Potentially d/c tomorrow pending respiratory status * Martin Khan, PT - 04/27/2023 10:45 AM CDT Acute Physical Therapy Treatment Patient Name: Carl Prasad Today's Date: 04/27/2023 Admission Date: 04/15/2023 Precautions Assessment PT Assessment/Recommendations Assessment: Pt making gradual progress towards goals. Demoing SBA for transfers and ambulation of 75' with very slow, steady gait and heavy UE support on AD. Significant ELIZONDO with long seated rest breaks needed throughout session. On 4L at rest, but 6L with mobility. Sats at 87% post ambulation and slow to recover. Pt continues to voice not feeling safe to return home. Recommend assist x1 for mobility and continued skilled PT to further address impairments. Recommendations for Nursing: Mobilize assist of 1 with gait belt, Up to chair 2- 3x/day, Ambulate 2-3x/day, Use of assistive device with mobility Type of Assistive Device: RW (for energy conservation) Discharge Support Recommendations: Requires increased support/assist Mobility Needs at Discharge: Assist of 1 person with mobility Post Acute Therapy Needs: Continued PT at next level of care Encounter Details General Diagnosis: Tension pneumothorax Admission/Diagnosis Details: Pt admitted for SOB and found to have tension pneumothorax. now s/p VATS with talc pleurodesis on 04/20. Chest tube placed and now removed 04/25. Pertinent Past Medical History: chronic hypoxic respiratory failure (on 3 LPM) 2/2 severe COPD, provoked DVT and PE not on AC Patient Seen In: Room Family/Caregiver Present: No Subjective Comments: Pt agreeable to therapy Lines and Tubes: O2 Delivery Device O2 Delivery Device: Nasal Cannula Subjective/Social History Home Setup Type of Home: Apartment Lives With: Alone Home Layout: One level Home Entry: Stairs to enter with rails Rails: Bilateral Number of stairs: 2 flights Prior Level of Functional Mobility Independent with: All Mobility Mobility Equipment Used: None DME owned: None History of falls: Denies Pain Patient complained of no pain throughout session Therapeutic Activity Transfers Sit to/from Stand Level of Assist: Standby assist Assistive Device: Rolling walker Comments: Heavy UE use, moves slowly Stand Pivot Stand Pivot Level of Assistance: Standby assist Stand Pivot Assistive Device: Rolling walker Gait Training Ambulation Bout 1 Distance (ft): 75' x2 Assistive Device: Rolling walker Level of Assist: Standby Assist Quality of Gait: Very slow gait speed with heavy UE support on AD. [facility] AM-PAC 6-Clicks Turning over in bed (including adjusting bed clothes, sheets, and blankets): Modified independent/independent Sitting down and standing up from a chair with arms: Minimum/contact guard/standby assist Moving from lying on back to sitting on the side of bed: Minimum/contact guard/standby assist Moving to and from a bed to a chair: Minimum/contact guard/standby assist Walk in hospital room?: Minimum/contact guard/standby assist Climbing 3-5 steps with a railing: Maximum/moderate assist AM-PAC 6 Clicks: Mobility Total Score: 18 The following scores are predictive of discharge disposition during acute hospitalization: Home= 20or greater; Home with Home Health=18; Continued skilled care at appropriate facility= 14 or less. Education/Safety Education Provided Patient Education: Role of PT, Transfers, Ambulation, Safe use of assistive device, Safety with mobility, Plan of care, Discharge recommendations Family Education: Family not present Safety Interventions Fall Risk?: Yes Safety Interventions/Patient Disposition: Standard interventions, In chair, All needs within reach,Notified nursing staff GOALS-The interventions during this session were provided to address the goals set forth on evaluation and are ongoing unless otherwise indicated. Time Frame Goals target date: 05/01/23 Supine to Sit Patient will perform supine to sit with: Emanuel Sit to/from Stand Patient will perform sit to/from stand transfer with: Emanuel Assistive Device: No assistive device Gait Level of Assist: Independent Assistive Device: No assistive device Distance: 150' Stair Negotiation Patient will perform stairs with: Modified independence UE Support: Bilateral rails Number of Stairs: 12 Pattern: Step to pattern TIME SPENT WITH PATIENT PT Timed Code Treatment Minutes (outside of evaluation) PT Gait Trainin PT Timed Code Treatment Minutes PT Total Billable Minutes: 25 Minutes * Sarah Terry RN - 04/27/2023 3:30 AM CDT Problem: SAFETY Goal: *Communicates safety needs Outcome: Met this shift Problem: Pain Goal: Exhibits reduction in pain to a level of acceptable comfort Outcome: Met this shift Problem: Gas Exchange - Impaired Goal: Pulse oximetry within specified parameters Outcome: Met this shift Note: 4 L NC sats 90%. 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 Referred to [facility] for lung transplant eval but declined due to finances and ongoing occasional smoking. Post-surgical leukocytosis. 04/20: TALC pleurodesis (POD x6) 04/25 chest tubes removed Slept all night without any respiratory distress on 4 L NC . Around 0600 pt was up sited and started having SOB hyperventilating, Increased WOB needing 6 L and CP CXR and EKG done no much of pneumothorax. PT called for devora treatment. Morphine given pt states some improvement now down to 4 L NC.Lungsounds has diminished wheeze. Breo given. F- Feeding & Fluids: Tolerating regular diet. A- Analgesic & Anticoagulation: Comfort Goal: Numeric, Verbal, Faces: 4 - Moderate Analgesic Scheduled Robaxin. PRN Tylenol, oxycodone, and torodol. IV dilaudid is now dc'd. Pt still has L-sided Anticoagulation/DVT prevention & plan SCDs S- Skin: Renetta Subcategory Concern(s): Sensory Perception: No Impairment Moisture: Rarely Moist Activity: Walks Occasionally Activity Interventions: Appropriate surface in while in chair Nutrition: Adequate Nutrition Interventions: Dietary supplement and Calorie intake Mobility: Slightly Limited Mobility Interventions: Low air loss support Friction and Shear: No Apparent Problem Total Renetta Score: 20: Pt more able to move and is shifting own weight T- Telemetry: Rhythm: Sinus Tachycardia Ectopy: Premature Ventricular Contraction E- Emotional & Neuro: Participating in cares and improved affect Neuro Alert and Oriented R- Respiratory: Respiratory device 3 L NC (baseline) H- Head OUT of Bed & Activity: Activate Fall Alert? (Enter 1 or 0): 1 Ambulating occasionally, SBA with walker Progressive mobility Phases 5-7: Phase 5: 10 steps or more U- Urologic/bowel: Size: Medium (04/26/2023 7:00 PM) Voiding in urinal, one BM this AM G- Glycemic Control: Not applicable T- Treatment: Pain management, PT/OT, respiratory status I- Invasive Devices: PIV D- Discharge: DC to TCU 04/27 at 1400. * Mary Andrew RT - 04/26/2023 8:18 PM CDT Patient has orders for QID nebulizer treatments. Patient seen on Nasal Cannula at 4 LPM. SpO2: 96 %, Respirations: 20, Pulse: (!) 103. Pre treatment Breath sounds All Spivey: Diminished;Clear. Patient received nebulizer as ordered via Delivery Device: Mask. Patient tolerated treatment well. Skin assessment: wdl Refer to flowsheet for additional information if needed. 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 Referred to [facility] for lung transplant eval but declined due to finances and ongoing occasional smoking. Post-surgical leukocytosis. 04/20: TALC pleurodesis (POD x6) 04/25 chest tubes removed F- Feeding & Fluids: Tolerating regular diet. A- Analgesic & Anticoagulation: Comfort Goal: Numeric, Verbal, Faces: 4 - Moderate Analgesic Scheduled Robaxin. PRN Tylenol, oxycodone, and torodol. IV dilaudid is now dc'd. Pt still has L-sided Anticoagulation/DVT prevention & plan SCDs S- Skin: Renetta Subcategory Concern(s): Sensory Perception: No Impairment Moisture: Rarely Moist Activity: Walks Occasionally Activity Interventions: Appropriate surface in while in chair Nutrition: Adequate Nutrition Interventions: Dietary supplement and Calorie intake Mobility: Slightly Limited Mobility Interventions: Low air loss support Friction and Shear: No Apparent Problem Total Renetta Score: 20: Pt more able to move and is shifting own weight T- Telemetry: Rhythm: Sinus Tachycardia Ectopy: Premature Ventricular Contraction E- Emotional & Neuro: Participating in cares and improved affect Neuro Alert and Oriented R- Respiratory: Respiratory device 3L NC (baseline) H- Head OUT of Bed & Activity: Activate Fall Alert? (Enter 1 or 0): 1 Ambulating occasionally, SBA with walker Progressive mobility Phases 5-7: Phase 5: 10 steps or more U- Urologic/bowel: Size: Large (04/26/2023 8:00 AM) Voiding in urinal, one BM this AM G- Glycemic Control: Not applicable T- Treatment: Pain management, PT/OT, respiratory status I- Invasive Devices: PIV D- Discharge: DC to TCU 04/27 at 1400. * Sarah Barrett, PT - 04/26/2023 2:00 PM CDT Acute Physical Therapy Treatment Patient Name: Carl Prasad Today's Date: 04/26/2023 Admission Date: 04/15/2023 Assessment PT Assessment/Recommendations Assessment: Romulo is seen in room, alert and agreeable to PT. He demonstrates good insight into hiscurrent endurance and strength deficits and why a discharge home would be quite unsafe at this time. He performs bed mobility with supervision. Transfers with RW CGA-SBA from bed and lower surface. Ambulates with RW up to 60ft with CGA, this is extremely effortful for pt with heavy reliance on UE support and significant ELIZONDO. Benefits from therapeutic rest breaks and cues for breathing techniques throughout. At this time, pt is moving significantly below his baseline and would require Ax1 for all mobility. Per chart review and conversation with RN, appears pt's planning to d/c to TCU 04/27. He will cont to benefit from ongoing PT services in subacute setting. Recommendations for Nursing: Mobilize assist of 1 with gait belt, Up to chair 2- 3x/day, Ambulate 2-3x/day, Use of assistive device with mobility Type of Assistive Device: RW (for energy conservation) Discharge Support Recommendations: Requires increased support/assist Mobility Needs at Discharge: Assist of 1 person with mobility Post Acute Therapy Needs: Continued PT at next level of care Encounter Details General Diagnosis: Tension pneumothorax Admission/Diagnosis Details: Pt admitted for SOB and found to have tension pneumothorax. now s/p VATS with talc pleurodesis on 04/20. Chest tube placed and now removed 04/25. Pertinent Past Medical History: chronic hypoxic respiratory failure (on 3 LPM) 2/2 severe COPD, provoked DVT and PE not on AC Patient Seen In: Room Family/Caregiver Present: No Subjective Comments: Pt greeted in bed, alert and agreeable to PT Lines and Tubes: O2 Delivery Device O2 Delivery Device: Nasal Cannula Subjective/Social History Home Setup Type of Home: Apartment Lives With: Alone Home Layout: One level Home Entry: Stairs to enter with rails Rails: Bilateral Number of stairs: 2 flights Prior Level of Functional Mobility Independent with: All Mobility Mobility Equipment Used: None DME owned: None History of falls: Denies Pain Patient complained of R posterior lateral chest pain where The air is. RN called and updated on pt's request for pain medication. Objective Cognitive Status Orientation Level: Oriented X4 Therapy Vitals HR: 106-127 SpO2: >94% Oxygen Delivery Device: Nasal Cannula Amount of Supplementary O2: 6LPM Vitals Comments: Significant SOB with brief ambulation, unfortunately did not have pulse ox to spotcheck, SpO2 noted after ambulation >94%. Therapeutic Activity Bed Mobility Bed Mobility Supine to Sit: Supervision Sit to Supine: Supervision Dangling: Independent Transfers Sit to/from Stand Level of Assist: Standby assist Assistive Device: No assistive device, Rolling walker Comments: Heavy UE use, moves slowly Miscellaneous Therapeutic Activity Therapeutic Activity: Activity 1 Activity 1: Extensive time spent educating patient on energy conservation techniques with use of walker and seated restbreaks as well as education diaphragmatic breathing throughout day. Pt verbalizes understanding Ambulation Bout 1 Distance (ft): 60ft + 45ft Assistive Device: Rolling walker Level of Assist: Contact guard/steadying assist Quality of Gait: Extremely heavy reliance on UE with walker, increase shoulder shrug and tension, requires cues for upright posture and shoulder relaxation; short step length Comments: Pt with significant SOB near end of first walk, therapist highly encouraged pt to take a seated rest break d/t increase shaking from effort. Benefits from rest break > 6 minutes and manycues for diaphgramatic breathing/PLB to slow RR. [facility] AM-PAC 6-Clicks Turning over in bed (including adjusting bed clothes, sheets, and blankets): Modified independent/independent Sitting down and standing up from a chair with arms: Minimum/contact guard/standby assist Moving from lying on back to sitting on the side of bed: Minimum/contact guard/standby assist Moving to and from a bed to a chair: Minimum/contact guard/standby assist Walk in hospital room?: Minimum/contact guard/standby assist Climbing 3-5 steps with a railing: Maximum/moderate assist AM-PAC 6 Clicks: Mobility Total Score: 18 The following scores are predictive of discharge disposition during acute hospitalization: Home= 20or greater; Home with Home Health=18; Continued skilled care at appropriate facility= 14 or less. Education/Safety Education Provided Patient Education: Role of PT, Transfers, Ambulation, Safe use of assistive device, Safety with mobility, Plan of care, Discharge recommendations Family Education: Family not present Safety Interventions Fall Risk?: Yes Safety Interventions/Patient Disposition: Standard interventions, In bed, All needs within reach, Call light in hand, Notified nursing staff Comment: RN notified of pt's request for pain GOALS-The interventions during this session were provided to address the goals set forth on evaluation and are ongoing unless otherwise indicated. Time Frame Goals target date: 05/01/23 TIME SPENT WITH PATIENT PT Timed Code Treatment Minutes (outside of evaluation) PT Therapeutic Activity: 23 PT Timed Code Treatment Minutes PT Total Billable Minutes: 23 Minutes * Shamika Mariscal - 04/26/2023 1:47 PM CDT Occupational Therapy Acute Treatment Patient Name: Carl Prasad Today's Date: 04/26/2023 Admission Date: 04/15/2023 ASSESSMENT/PLAN/RECOMMENDATIONS Assessment/Plan/Recommendations OT Assessment Results: Impaired ADLs, Impaired IADLs, Impaired functional mobility, Impaired endurance, impaired UE function, Impaired strength Strengths: Age, Prior level of function, Good family support, Patient motivation, Patient cooperation Limitations/Discharge Barriers: Current medical status, Limited mobility, Needs assist with ADL, Decreased strength, Decreased activity tolerance, Decreased ROM Rehab Potential: Good Discharge Support Recommendations: Requires increased assist/support Requires assist with the following ADLs: Grooming/hygiene, LE dressing, UE dressing, Toileting, Shower/bathing Requires assist with the following IADLs: Meal prep, Homemaking, Driving Recommended level of supervision at discharge due to current cognitive status: No Supervision Post Acute Therapy Needs: Continued OT at Next Level of Care OT Plan Comments: Pt has poor endurance as evidenced by needing frequent rest breaks while completing light hygienes during 10 minute dangle with SBA. Pt SOB with light activity and O2 remained above90%. Pt reports no dizziness. Pt currently ambulated ADL distances with assist of 1 and needs extraassistance with all ADLs. Pt demonstrated bed mobility with SBA. Pt is below baseline for endurance, ADL function and mobility. OT recommends TCU at d/c for safe return to [place]. Will follow acutely. 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 now s/p VATS with talc pleurodesis on 04/20 Pertinent Past Medical History: chronic hypoxic respiratory failure (on 3 LPM) 2/2 severe COPD, provoked DVT and PE not on AC Patient Seen In: Room Family/Caregiver Present: No Allopathic Doctor Used?: NA Hearing: Within Functional Limits Lines and Tubes: (L Now on water seal) Subjective (Comment): Pt in bed and agreeable to tx PRECAUTIONS Therapy Vitals SpO2: 90s Oxygen Delivery Device: Nasal Cannula Amount of Supplementary O2: 6L SAFETY INTERVENTIONS Safety Interventions Fall Risk?: Yes Safety Interventions/Patient Disposition: Standard interventions PATIENT IS FUNCTIONING FOLLOWS: Current ADL and IADL Status Current ADL Status Grooming Assistance: SBA ADL Comments: So to increase endurance to facilitate greater independence with ADLs, pt completed hygienes after setup. Pt needing to rest several times due to fatigue and SOB. Pt with poor endurance Functional Mobility Bed Mobility Supine to Sit: SBA Sit to Supine: SBA Dangling: SBA Bed Mobility Comments: Pt completed 10 minute dangle with SBA Cognition OR 4/4 Activity Tolerance Endurance: Participates 10-20 min of therapy session AM-PAC Outcome Measure 6 Clicks Daily ADL AM-PAC Putting on and taking off regular lower body clothing?: A Lot Bathing (including washing, rinsing, drying)?: A Lot Toileting, which includes using toilet, bedpan or urinal?: A Little Putting on and taking off regular upper body clothing?: A Little Taking care of personal grooming such as brushing teeth?: A Little Eating meals?: A Little AM-PAC Daily Activity Raw Score: 16 AM-PAC Daily Activity CMS 0-100% Score: 53.32 AM-PAC Daily Activity t-Scale Score: 35.96 The following scores are predictive of discharge disposition during acute hospitalization: Home= 20.1; Home with Home Health= 17.9; TCU=14; IRF=13.6; LTACH=11.5 Please refer to narrative for assessment of functional performance and discharge recommendations asscores may not always reflect mobility, cognitive aspects of performance or instrumental activitiesof daily living (IADLs) PATIENT EDUCATION Patient Education Patient Education: Role of OT, Plan of care TIME SPENT WITH PATIENT OT Timed Code Treatment Minutes OT Self-Care/Home Management: 15 OT Total Minutes Spent with Patient Total Minutes Spent With Patient (billable): 15 Minutes GOALS Time Frame Short term goals target date: 04/25/23 correction goals target date: 05/02/23 Patient/Family Participation in Goal Setting Patient participated in goal setting: Yes Patient goal preference: Pt would like to return home. STG Grooming Patient will complete daily grooming and light hygiene task: with supervision, while standing at the sink Outcome: Goal Ongoing STG UE Dressing Patient will dress upper body donning/doffing: hospital gown, with set-up Outcome: Goal Ongoing STG LE Dressing Patient will dress lower body donning/doffing: underwear, pants, socks, shoes, with compensatory strategies, with adaptive equipment/strategies, with supervision Outcome: Goal Ongoing STG Toileting Patient will complete toileting: with supervision STG Endurance/Activity Tolerance As a measure of improved activity tolerance, patient will perform: ADL task, for 5 minutes, with supervision, while standing at the sink Outcome: Goal Ongoing Retirement Goals Patient will complete ADLs including: hygiene/grooming, dressing, toileting, independently Outcome: Goal Ongoing * Leidy Ojeda RN - 04/26/2023 1:17 PM CDT 04/26/2023 Care Management - Progress Note Patient's chart reviewed. Patient discussed in rounds. Assessment: Spontaneous Pneumothorax, talc pleurodesis Anticipated Discharge Date: 04/27/23 Anticipated Discharge Needs: tcu Selected Continued Care - Admitted Since 04/15/2023 Destination Coordination complete. Service Provider Selected Services Address Phone Fax Patient Preferred [facility] Residential [phone] [facility] [phone] -- Internal Comment last updated by Leidy Ojeda RN 04/26/2023 125[facility] 04/26/2023 [facility] for Melania drake , up dating her that CT is removed on 04/25, waiting for a call back. M.a/cm 04/26/2023 Spoke with Erinn, she stated her coworker is reviewing and will call us back .serena/blair 04/25/2023@2:31 PM Called [phone] , spoke with Erinn, confirmed they received the referral. Referral under review, they will call us back with update. m.a/cm 04/25/2023@11:42 AM Called [phone] spoke with admission. They have bed, requested referral faxed over. Referral faxed to [phone] per request.m.a/cm Potential Barriers: medical stability, Care Coordination Plan & Communication with Patient/Family: pt discussed in rounding. Chart reviewed Cm called and spoke with Melania shepard [phone] @admission. Provided requested information ; pt SS, and Address: [address] [place] [address] [address] , [facility] [address]. [facility] confirmed they can take pt tomorrow earliest 2 pm and latest 6 pm. -pt in agreement with d/c to [facility], setting up portable O2 via [facility]. Pt will call family for a ride. -cm updated the care team via secure chat. - cm called [facility] [phone] spoke with Mariia & arranged portable O2 to be delivered tomorrow before 2 pm. Will fax O2 order , H & P and Face sheet to Leidy Ojeda RN chemistry physics teacher Pager [phone] * Darren Humphries RT - 04/26/2023 11:49 AM CDT Patient has orders for Duoneb QID. Patient seen on Nasal Cannula at 3 LPM. SpO2: 91 %, Respirations: 18, Pulse: (!) 110. Pre treatment Breath sounds All Spivey: Diminished. Patient received nebulizer as ordered via Delivery Device: Mask. Patient tolerated treatment well. Skin assessment: no new issues. IS: 1500ml X5. Refer to flowsheet for additional information if needed. 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 Referred to [facility] for lung transplant eval but declined due to finances and ongoing occasional smoking. Post-surgical leukocytosis. 04/20: TALC pleurodesis (POD x6) 04/25 chest tubes removed F- Feeding & Fluids: Tolerating regular diet, PO intake improving. A- Analgesic & Anticoagulation: Comfort Goal: Numeric, Verbal, Faces: 4 - Moderate Analgesic Pain at where the Chest tubes were. Pt movement and oral intake limited by pain. Scheduled Robaxin.PRN PO Tylenol, oxycodone, and IV dilaudid. Anticoagulation/DVT prevention & plan SCDs S- Skin: Renetta Subcategory Concern(s): Sensory Perception: No Impairment Moisture: Occasionally Moist Activity: Walks Occasionally Activity Interventions: Appropriate surface in while in chair Nutrition: Adequate Nutrition Interventions: Dietary supplement and Calorie intake Mobility: Slightly Limited Mobility Interventions: Low air loss support Friction and Shear: Potential Problem Friction and Shear Interventions: Protect heels and elbows from friction/slide Total Renetta Score: 18: pt repositioning self with reminders T- Telemetry: Rhythm: Sinus Rhythm Ectopy: None E- Emotional & Neuro: Participating in cares Neuro Alert and Oriented R- Respiratory: Respiratory device 3L NC (base 3L) O2 goal to keep SpO2 above 88-90%. H- Head OUT of Bed & Activity: Activate Fall Alert? (Enter 1 or 0): 1 Ambulating A1 between bedand chair, fatigues easily Progressive mobility Phases 5-7: Phase 6: 25 feet or more U- Urologic/bowel: Size: Large (04/25/2023 7:24 PM) Voiding urinal, G- Glycemic Control: Not applicable T- Treatment: Pain management, encouraging PO intake and increased activity, and Labs K/Mg protocol- Mag replaced today, recheck with am labs. Pulm s/o. PT/OT following I- Invasive Devices: PIV x1; D- Discharge: Lives IND at baseline. Pt may need to go to TCU at discharge. CTS ok with DC from their standpoint 04/26 if CXR stable. * Goran Schwartz RN - 04/26/2023 4:25 AM CDT Problem: Falls/Injury-Risk of Goal: Absence of Falls/Injury Outcome: Met this shift Free from falls Problem: SAFETY Goal: *Communicates safety needs Outcome: Met this shift Alert, makes needs known * Jesika Osborne RN - 04/25/2023 10:49 PM CDT Problem: Mobility - Impaired Goal: Demonstrates ability to perform physical activity independently or with assistive devices as needed Outcome: Ongoing Problem: Gas Exchange - Impaired Goal: Pulse oximetry within specified parameters Outcome: Ongoing Problem: Falls/Injury-Risk of Goal: Absence of Falls/Injury Outcome: Met this shift Flowsheets Taken 04/25/2023 1945 by Jesika Osborne RN Environmental Safety Interventions: Standard Interventions in Place Mobility Safety Interventions: Standard Interventions in Place Elimination Safety Interventions: Standard Interventions in Place Medication: Standard Interventions in Place Taken 04/21/2023 0400 by Elvi Lewis RN Consults: Physical Therapy (Requires MD Order) Occupational Therapy (Requires MD Order) * Kelsie Esparza RT - 04/25/2023 7:47 PM CDT Patient has orders for Duoneb QID. Patient seen on Nasal Cannula at 4 LPM. SpO2: 92 %, Respirations: 18, Pulse: (!) 108. Pre treatment Breath sounds All Spivey: Diminished. Patient received nebulizer as ordered via Delivery Device: Mask. Patient tolerated treatment well. Skin assessment: No issues. Refer to flowsheet for additional information if needed. * Darren Humphries RT - 04/25/2023 3:42 PM CDT Patient has orders for Duoneb QID. Patient seen on Nasal Cannula at 3 LPM. SpO2: 96 %, Respirations: 16, Pulse: 86. Pre treatment Breath sounds All Spivey: Diminished. Patient received nebulizer as ordered via Delivery Device: Mask. Patient tolerated treatment well. Skin assessment: no new issues. Refer to flowsheet for additional information if needed. 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 Referred to [facility] for lung transplant eval but declined due to finances and ongoing occasional smoking. Post-surgical leukocytosis. 04/20: TALC pleurodesis (POD x5) Summary: Chest tubes removed today at 09:30. F/u CXR pending. Pain has improved since CT removal. Bed bath done this shift. F- Feeding & Fluids: Tolerating regular diet, PO intake improving. A- Analgesic & Anticoagulation: Comfort Goal: Numeric, Verbal, Faces: 4 - Moderate Analgesic Pain at where the Chest tubes were. Pt movement and oral intake limited by pain. Scheduled Robaxin.PRN PO Tylenol, oxycodone, and IV dilaudid. Helpful. Anticoagulation/DVT prevention & plan SCDs S- Skin: Renetta Subcategory Concern(s): Sensory Perception: No Impairment Moisture: Rarely Moist Activity: Walks Occasionally Activity Interventions: Appropriate surface in while in chair Nutrition: Adequate Nutrition Interventions: Dietary supplement and Calorie intake Mobility: Slightly Limited Mobility Interventions: Low air loss support Friction and Shear: Potential Problem Friction and Shear Interventions: Protect heels and elbows from friction/slide Total Renetta Score: 19: Pt alternating between bed and chair Bed bath done today. T- Telemetry: Rhythm: Sinus Tachycardia Ectopy: None E- Emotional & Neuro: Participating in cares Neuro Alert and Oriented R- Respiratory: Respiratory device 3L NC (base 3L) O2 goal to keep SpO2 above 88-90%. H- Head OUT of Bed & Activity: Activate Fall Alert? (Enter 1 or 0): 1 Ambulating A1 between bedand chair, fatigues easily Progressive mobility Phases 5-7: Phase 5: 10 steps or more U- Urologic/bowel: Size: Large (04/25/2023 9:54 AM) Voiding urinal, 1 formed BM 04/25 G- Glycemic Control: Not applicable T- Treatment: Pain management, encouraging PO intake and increased activity, and Labs K/Mg protocol- Mag replaced today, recheck at 1854. Pulm s/o. PT/OT following I- Invasive Devices: PIV x1; Chest tube clamped at 1999 D- Discharge: Lives IND at baseline. Pt may need to go to TCU at discharge. CTS ok with DC from their standpoint tomorrow if CXR stable. * Leidy Ojeda RN - 04/25/2023 10:36 AM CDT 04/25/2023 Care Management - Progress Note Patient's chart reviewed. Patient discussed in rounds. Assessment: Spontaneous pneumothorax, s/p talc pleurodesis, Anticipated Discharge Date: 1-2 days Anticipated Discharge Needs: tcu .c Potential Barriers: medical stability, bed availability, pt preference. Care Coordination Plan & Communication with Patient/Family: pt discussed in rounding, chart reviewed. Cm met with pt at bedside. Discussed discharge rec. Pt stated he has a lot of steps to get up to his apartment.open to tcu if rec. TCU list provided, will follow and place referral calls. Continued Care and Services - Admitted Since 04/15/2023 Destination Service Provider Request Status Selected Services Address Phone Fax Patient Preferred [facility] Pending - No Request Sent N/A [id number] [facility] [phone] -- Internal Comment last updated by Leidy Ojeda, ALESSANDRA 04/25/2023 1432 04/25/2023@2:31 PM Called [phone] , spoke with Erinn, confirmed they received the referral. Referral under review, they will call us back with update. glen 04/25/2023@11:42 AM Called [phone] spoke with admission. They have bed, requested referral faxed over. Referral faxed to [phone] per request.[email or web address].[email or web address] [facility] Pending - No Request Sent N/A [id number] [facility] [phone] -- Internal Comment last updated by Leidy Ojeda RN 04/25/2023 1435 2nd 04/25/2023@2:33 PM LVM for Shelly @[phone] requesting for a call back with update.cy 04/25/2023@11:38 AM Spoke with Shelly @admission [phone]. They have one shared room , will review. Referral faxed to [phone] . Cy [facility] Pending - No Request Sent N/A [id number] [facility] [phone] -- Internal Comment last updated by Leidy Ojeda RN 04/25/2023 1204 3rd 04/25/2023@11:39 AM Spoke with liaison Hernan and granted epic access. 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 Referred to [facility] for lung transplant eval but declined due to finances and ongoing occasional smoking. Post-surgical leukocytosis. 04/20: TALC pleurodesis (POD x5) Summary: Pain from chest tube site improved overnight - pt slept well in between cares and stated this is best his pain has been at night, I'm actually able to sleep. Continued pain management withPRN Oxycodone and Tylenol. PRN dilaudid available. Scheduled Robaxin. CT clamped since yesterday 04/24 at 1999, continues w/ no respiratory issues since. CXR scheduled this AM. F- Feeding & Fluids: Tolerating regular diet, PO intake improving and IVFs Dc'd. A- Analgesic & Anticoagulation: Comfort Goal: Numeric, Verbal, Faces: 4 - Moderate Analgesic Pain r/t Chest tube. Pt movement and oral intake limited by pain. Scheduled Robaxin. PRN PO Tylenol, oxycodone, and IV dilaudid. Helpful. Anticoagulation/DVT prevention & plan SCDs S- Skin: Renetta Subcategory Concern(s): Sensory Perception: No Impairment Moisture: Rarely Moist Activity: Walks Occasionally Activity Interventions: Appropriate surface in while in chair Nutrition: Adequate Nutrition Interventions: Dietary supplement and Calorie intake Mobility: Slightly Limited Mobility Interventions: Low air loss support Friction and Shear: Potential Problem Friction and Shear Interventions: Protect heels and elbows from friction/slide Total Renetta Score: 19: Pt alternating between bed and chair T- Telemetry: Rhythm: Sinus Rhythm Ectopy: None E- Emotional & Neuro: Participating in cares Neuro Alert and Oriented R- Respiratory: Respiratory device 4L NC (base 3L) O2 goal to keep SpO2 above 88-90%. Chest tube- CLAMPED. Crepitus still present. H- Head OUT of Bed & Activity: Activate Fall Alert? (Enter 1 or 0): 1 Ambulating A1 between bedand chair, fatigues easily Progressive mobility Phases 5-7: Phase 5: 10 steps or more U- Urologic/bowel: Size: Large (04/24/2023 10:00 AM) Voiding urinal, 1 formed BM 04/24 G- Glycemic Control: Not applicable T- Treatment: Chest tube management, ongoing pain management, encouraging PO intake and increased activity, and Labs K/Mg protocol. Pulm s/o. PT/OT following I- Invasive Devices: PIV x1; Chest tube clamped at 1999 D- Discharge: Lives IND at baseline. Pt may need to go to TCU at discharge. * Sonja Rodriguez RN - 04/25/2023 3:12 AM CDT Problem: Falls/Injury-Risk of Goal: Absence of Falls/Injury Outcome: Met this shift Problem: SAFETY Goal: *Communicates safety needs Outcome: Met this shift Problem: Pain Goal: Exhibits reduction in pain to a level of acceptable comfort Outcome: Met this shift Problem: Chest Tube Management Goal: Maintain adequate oxygenation related to chest tube placement Outcome: Met this shift Problem: Gas Exchange - Impaired Goal: Pulse oximetry within specified parameters Outcome: Met this shift Problem: Tissue Perfusion - Altered, Risk of Goal: Maintains optimal tissue perfusion to vital organs as evidenced by BP, HR, and RR within normal limits Outcome: Met this shift BP 128/82 Pulse (!) 108 Temp 98.2 ??F (36.8 ??C) Resp 16 Ht 6' (1.829 m) Wt 78.5 kg (173 lb) SpO2 98% BMI 23.46 kg/m?? 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 Referred to [facility] for lung transplant eval but declined due to finances and ongoing occasional smoking. Post-surgical leukocytosis. 04/20: TALC pleurodesis POD x4 Summary: Severe pain from chest tube site ongoing issue. Continued pain management with PRN Dilaudid, Oxy, Tylenol, and sched. Robaxin. CT placed on suction trial today, clamped at 1999, Pt premedicated with oxy and Tylenol before clamping, pain management successful. F- Feeding & Fluids: Tolerating regular diet, PO intake improving and IVFs Dc'd. A- Analgesic & Anticoagulation: Comfort Goal: Numeric, Verbal, Faces: 4 - Moderate Analgesic Pain r/t Chest tube. Pt movement and oral intake limited by pain. Scheduled Robaxin. PRN PO Tylenol, oxycodone, and dilaudid. Helpful. Anticoagulation/DVT prevention & plan SCDs S- Skin: Renetta Subcategory Concern(s): Sensory Perception: No Impairment Moisture: Rarely Moist Activity: Walks Occasionally Activity Interventions: Appropriate surface in while in chair Nutrition: Adequate Nutrition Interventions: Dietary supplement and Calorie intake Mobility: Slightly Limited Mobility Interventions: Low air loss support Friction and Shear: Potential Problem Friction and Shear Interventions: Protect heels and elbows from friction/slide Total Renetta Score: 19: Pt alternating between bed and chair T- Telemetry: Rhythm: Sinus Tachycardia Ectopy: None E- Emotional & Neuro: Participating in cares Neuro Alert and Oriented R- Respiratory: Respiratory device 4L NC O2 goal to keep SpO2 above 88-90%. Chest tube- No air leaknoted today. Crepitus still present. H- Head OUT of Bed & Activity: Activate Fall Alert? (Enter 1 or 0): 1 Ambulating AO1 between bed and chair, fatigues easily Progressive mobility Phases 5-7: Phase 5: 10 steps or more U- Urologic/bowel: Size: Large (04/24/2023 10:00 AM) Voiding urinal, 1 formed BM this AM G- Glycemic Control: Not applicable T- Treatment: Chest tube management, ongoing pain management, encouraging PO intake and increased activity, and Labs K/Mg protocol. Pulm s/o. PT/OT following I- Invasive Devices: PIV x1 Chest tube WS, clamped at 1999 D- Discharge: Lives IND at baseline. Pt may need to go to TCU at discharge. * Shamika Mariscal - 04/24/2023 3:59 PM CDT Occupational Therapy Acute Treatment Patient Name: Carl Prasad Today's Date: 04/24/2023 Admission Date: 04/15/2023 ASSESSMENT/PLAN/RECOMMENDATIONS Assessment/Plan/Recommendations OT Assessment Results: Impaired ADLs, Impaired IADLs, Impaired functional mobility, Impaired endurance, impaired UE function, Impaired strength Strengths: Age, Prior level of function, Good family support, Patient motivation, Patient cooperation Limitations/Discharge Barriers: Current medical status, Limited mobility, Needs assist with ADL, Decreased strength, Decreased activity tolerance, Decreased ROM Rehab Potential: Good Discharge Support Recommendations: Requires increased assist/support Requires assist with the following ADLs: Grooming/hygiene, LE dressing, UE dressing, Toileting, Shower/bathing Requires assist with the following IADLs: Meal prep, Homemaking, Driving Recommended level of supervision at discharge due to current cognitive status: No Supervision Post Acute Therapy Needs: Continued OT at Next Level of Care OT Plan Comments: Pt making slight gains with OT POC goals. Pt demonstrated BUE exercises, 1# PREs with RUE and AROM with LUE. Pt with poor endurance, fatigued with conversation. Pt HR ranging from 92-106 and OT remained above 90% with activity. Pt ambulated ADL distance with PT today. Pt OR 4/5, missing date. Pt is below baseline for endurance, mobility and ADL function. Pt would benefit with continued OT at next level of care. Will follow acutely Recommendations for next session: short ambulation, sink hyg, RUE 1# PREs, LUE AROM INPATIENT REHAB FACILITY CANDIDATE Inpatient Rehabilitation Facility Candidate Appropriate for Acute Inpatient Rehab?: No GENERAL General Visit Type: Treatment Diagnosis: Tension pneumothorax Admission/Diagnosis Details: Pt admitted for SOB and found to have tension pneumothorax. now s/p VATS with talc pleurodesis on 04/20 Pertinent Past Medical History: chronic hypoxic respiratory failure (on 3 LPM) 2/2 severe COPD, provoked DVT and PE not on AC Patient Seen In: Room Family/Caregiver Present: No Allopathic Doctor Used?: NA Hearing: Within Functional Limits Lines and Tubes: Chest Tube (L Now on water seal) Subjective (Comment): Pt in chair and agreeable to tx PRECAUTIONS Therapy Vitals SpO2: 90s Oxygen Delivery Device: Nasal Cannula Amount of Supplementary O2: 4L SAFETY INTERVENTIONS Safety Interventions Fall Risk?: Yes Safety Interventions/Patient Disposition: Standard interventions, [place] sitter on PATIENT IS FUNCTIONING FOLLOWS: Therapeutic Exercise Exercise UE Exercise: So to progress endurance, pt completed 1# PREs X3, 10 reps each and LUE AROM. Pt completed mostly distal AROM with LUE due to pain and edema. Encouraged pt to complete AROM outside of therapy. Activity Tolerance Endurance: Participates 10-20 min of therapy session AM-PAC Outcome Measure 6 Clicks Daily ADL AM-PAC Putting on and taking off regular lower body clothing?: A Lot Bathing (including washing, rinsing, drying)?: A Lot Toileting, which includes using toilet, bedpan or urinal?: A Little Putting on and taking off regular upper body clothing?: A Little Taking care of personal grooming such as brushing teeth?: A Little Eating meals?: None AM-PAC Daily Activity Raw Score: 17 AM-PAC Daily Activity CMS 0-100% Score: 50.11 AM-PAC Daily Activity t-Scale Score: 37.26 The following scores are predictive of discharge disposition during acute hospitalization: Home= 20.1; Home with Home Health= 17.9; TCU=14; IRF=13.6; LTACH=11.5 Please refer to narrative for assessment of functional performance and discharge recommendations asscores may not always reflect mobility, cognitive aspects of performance or instrumental activitiesof daily living (IADLs) PATIENT EDUCATION Patient Education Patient Education: Role of OT, Plan of care TIME SPENT WITH PATIENT OT Timed Code Treatment Minutes OT Therapeutic Exercise: 15 OT Total Minutes Spent with Patient Total Minutes Spent With Patient (billable): 15 Minutes GOALS Time Frame Short term goals target date: 04/25/23 correction goals target date: 05/02/23 Patient/Family Participation in Goal Setting Patient participated in goal setting: Yes Patient goal preference: Pt would like to return home. STG Grooming Patient will complete daily grooming and light hygiene task: with supervision, while standing at the sink Outcome: Goal Ongoing STG UE Dressing Patient will dress upper body donning/doffing: hospital gown, with set-up Outcome: Goal Ongoing STG LE Dressing Patient will dress lower body donning/doffing: underwear, pants, socks, shoes, with compensatory strategies, with adaptive equipment/strategies, with supervision Outcome: Goal Ongoing STG Toileting Patient will complete toileting: with supervision STG Endurance/Activity Tolerance As a measure of improved activity tolerance, patient will perform: ADL task, for 5 minutes, with supervision, while standing at the sink Outcome: Goal Ongoing Retirement Goals Patient will complete ADLs including: hygiene/grooming, dressing, toileting, independently Outcome: Goal Ongoing * Tracey Mckeon RN - 04/24/2023 2:44 PM CDT Med-Surg Care Progression Note Type: Shift to shift summary Length of stay: 9 days Code Status: Full Code Primary Problem: Spontaneous pneumothorax, persistent air leak 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 Referred to [facility] for lung transplant eval but declined due to finances and ongoing occasional smoking. Post-surgical leukocytosis. 04/20: TALC pleurodesis POD x4 Summary: Severe pain from chest tube site ongoing issue. CT found kinked this AM and afterwards pain was better controlled. CT placed on suction trial today and possible plan to clamp CT at [place]. F- Feeding & Fluids: Tolerating regular diet, PO intake improving and IVFs Dc'd. A- Analgesic & Anticoagulation: Comfort Goal: Numeric, Verbal, Faces: 4 - Moderate Analgesic Pain r/t Chest tube. Pt movement and oral intake limited by pain. Scheduled Robaxin. PRN PO Tylenol, oxycodone, and dilaudid. Helpful. Anticoagulation/DVT prevention & plan SCDs S- Skin: Renetta Subcategory Concern(s): Sensory Perception: No Impairment Moisture: Rarely Moist Moisture Interventions: Minimize chux/linen layers Activity: Walks Occasionally Activity Interventions: Appropriate surface in while in chair Nutrition: Adequate Nutrition Interventions: Calorie intake Mobility: Slightly Limited Mobility Interventions: Low air loss support Friction and Shear: Potential Problem Friction and Shear Interventions: Protect heels and elbows from friction/slide Total Renetta Score: 19: Pt alternating between bed and chair T- Telemetry: Rhythm: Sinus Tachycardia Ectopy: None E- Emotional & Neuro: Participating in cares Neuro Alert and Oriented R- Respiratory: Respiratory device 4L NC O2 goal to keep SpO2 above 88-90% Chest tube- No air leak noted today. Crepitus still present. H- Head OUT of Bed & Activity: Activate Fall Alert? (Enter 1 or 0): 1 Ambulating AO1 between bed and chair, fatigues easily Progressive mobility Phases 5-7: Phase 5: 10 steps or more U- Urologic/bowel: Size: Large (04/24/2023 10:00 AM) Voiding urinal,1 BM this shift-formed. G- Glycemic Control: Not applicable T- Treatment: Chest tube management, ongoing pain management, encouraging PO intake and increased activity, and Labs K/Mg protocol. Pulm s/o. PT/OT following I- Invasive Devices: PIV x1 Chest tube WS D- Discharge: Lives IND at baseline. Pt may need to go to TCU at discharge. * Martin Khan, PT - 04/24/2023 2:40 PM CDT Acute Physical Therapy Treatment Patient Name: Carl Prasad Today's Date: 04/24/2023 Admission Date: 04/15/2023 Assessment PT Assessment/Recommendations Assessment: Pt s/p VATS with talc pleurodesis on 04/20 with chest tubes to water seal. Pt more fatigued this session and more deconditioned compared to prior sessions. Requiring [facility] for transfers and short bout of ambulation this session without use of AD. Mildly unsteady throughout and would probably benefit from trial of RW. Significant ELIZONDO with sats down to 83% post ambulation on 4L. Slow to recover. Pt reporting does not feel safe to return home, and appears unsafe to do so. Recommend assist x1 for mobility and continued skilled PT to further address impairments. Recommendations for Nursing: Mobilize assist of 1 with gait belt, Up to chair 2- 3x/day, Use of assistive device with mobility, Ambulate 2-3x/day Type of Assistive Device: RW prn Discharge Support Recommendations: Requires increased support/assist Mobility Needs at Discharge: Assist of 1 person with mobility Post Acute Therapy Needs: Continued PT at next level of care Encounter Details General Diagnosis: Tension pneumothorax Admission/Diagnosis Details: Pt admitted for SOB and found to have tension pneumothorax. now s/p VATS with talc pleurodesis on 04/20 Pertinent Past Medical History: chronic hypoxic respiratory failure (on 3 LPM) 2/2 severe COPD, provoked DVT and PE not on AC Patient Seen In: Room Family/Caregiver Present: No Subjective Comments: Pt agreeable to therapy Lines and Tubes: Chest Tube (L Now on water seal) Subjective/Social History Home Setup Type of Home: Apartment Lives With: Alone Home Layout: One level Home Entry: Stairs to enter with rails Rails: Bilateral Number of stairs: 2 flights Prior Level of Functional Mobility Independent with: All Mobility Mobility Equipment Used: None DME owned: None History of falls: Denies Pain Patient complained of 5/10 pain in chest tube site and low back Objective SpO2: 83 post mobility on 4L Therapeutic Activity Bed Mobility Bed Mobility Roll Right: Standby assist Roll Left: Standby assist Supine to Sit: Standby assist Sit to Supine: Standby assist Dangling: Independent Transfers Sit to/from Stand Level of Assist: Contact guard/steadying assist, Minimal assist Assistive Device: No assistive device Comments: Very slow and effortful to rise Stand Pivot Stand Pivot Level of Assistance: Contact guard/steadying assist, Minimal assist Stand Pivot Assistive Device: No assistive device Gait Training Ambulation Bout 1 Distance (ft): 40' Assistive Device: No assistive device Level of Assist: Contact guard/steadying assist, Minimal assist Quality of Gait: Pt with very slow, shuffled gait. Mildly unsteady throughout [facility] AM-PAC 6-Clicks Turning over in bed (including adjusting bed clothes, sheets, and blankets): Minimum/contact guard/standby assist Sitting down and standing up from a chair with arms: Minimum/contact guard/standby assist Moving from lying on back to sitting on the side of bed: Minimum/contact guard/standby assist Moving to and from a bed to a chair: Minimum/contact guard/standby assist Walk in hospital room?: Minimum/contact guard/standby assist Climbing 3-5 steps with a railing: Maximum/moderate assist AM-PAC 6 Clicks: Mobility Total Score: 17 The following scores are predictive of discharge disposition during acute hospitalization: Home= 20or greater; Home with Home Health=18; Continued skilled care at appropriate facility= 14 or less. Education/Safety Education Provided Patient Education: Role of PT, ROM/Positioning, Bed mobility, Transfers, Ambulation, Safety with mobility, Plan of care, Risk of falls, Discharge recommendations Family Education: Family not present Safety Interventions Fall Risk?: Yes Safety Interventions/Patient Disposition: Standard interventions, [place] sitter on, In chair, All needs within reach GOALS-The interventions during this session were provided to address the goals set forth on evaluation and are ongoing unless otherwise indicated. Time Frame Goals target date: 05/01/23 Supine to Sit Patient will perform supine to sit with: Emanuel Sit to/from Stand Patient will perform sit to/from stand transfer with: Emanuel Assistive Device: No assistive device Gait Level of Assist: Independent Assistive Device: No assistive device Distance: 150' Stair Negotiation Patient will perform stairs with: Modified independence UE Support: Bilateral rails Number of Stairs: 12 Pattern: Step to pattern TIME SPENT WITH PATIENT PT Timed Code Treatment Minutes (outside of evaluation) PT Therapeutic Activity: 16 PT Gait Trainin PT Timed Code Treatment Minutes PT Total Billable Minutes: 26 Minutes * Andrea Camarena, RT - 04/24/2023 12:58 PM CDT Patient has orders for Duoneb qid. Patient seen on Nasal Cannula at 4 LPM. SpO2: 95 %, Respirations: 18, Pulse: 93. Pre treatment Breath sounds All Spivey: Expiratory;Wheeze. Patient received nebulizer as ordered via Delivery Device: Mask. Patient tolerated treatment well. Skin assessment: WNL Refer to flowsheet for additional information if needed. * Leidy Ojeda RN - 04/24/2023 11:45 AM CDT 04/24/2023 Care Management - Progress Note Patient's chart reviewed. Patient discussed in rounds. Assessment: Spontaneous pneumothorax, s/p thoracotomy , bleb resction, pod #4 Anticipated Discharge Date: tbd Anticipated Discharge Needs: tbd Potential Barriers: medical stability Care Coordination Plan & Communication with Patient/Family: pt discussed in rounding. Chart reviewed. Pt A & O, on 4L NC. CT -plan to attempt water seal trail today, repeat CXR this pm. 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 Referred to [facility] for lung transplant eval but declined due to finances and ongoing occasional smoking. Post-surgical leukocytosis. 04/20: TALC pleurodesis Summary: No acute changes overnight. Pain managed with Inj toradol given x1 and inj dilaudid x1 overnight.No airleak noted overnight. Crepitus barely heard. No loose BM overnight. Dressing reapplied at CT site. Mag replaced overnight. This am helped Pt to the bharat, sats went down to 70s, with increased WOB and CT site pain. F- Feeding & Fluids: Tolerating regular diet, low PO fluid intake but able to eat over 75% of dinner. A- Analgesic & Anticoagulation: Comfort Goal: Numeric, Verbal, Faces: 2 Analgesic Pain r/t Chest tube. Pt movement and oral intake limited by pain. Scheduled Robaxin. PO Tylenol, oxycodone. toradol, dilaudid. Anticoagulation/DVT prevention & plan SCDs S- Skin: Renetta Subcategory Concern(s): Sensory Perception: No Impairment Moisture: Occasionally Moist Moisture Interventions: Minimize chux/linen layers Activity: Walks Occasionally Activity Interventions: Appropriate surface in while in chair Nutrition: Adequate Nutrition Interventions: Calorie intake Mobility: Slightly Limited Mobility Interventions: Low air loss support Friction and Shear: Potential Problem Friction and Shear Interventions: Protect heels and elbows from friction/slide Total Renetta Score: 18: Pt alternating between bed and chair T- Telemetry: Rhythm: Sinus Tachycardia Ectopy: None E- Emotional & Neuro: Participating in cares Neuro Alert and Oriented R- Respiratory: Respiratory device 4L NC H- Head OUT of Bed & Activity: Activate Fall Alert? (Enter 1 or 0): 1 Ambulating AO1 between bed and chair, fatigues easily Progressive mobility Phases 5-7: Phase 5: 10 steps or more U- Urologic/bowel: Size: Large (04/23/2023 6:25 PM) Voiding urinal, loose stools this shift; bowel meds held. G- Glycemic Control: Not applicable T- Treatment: Chest tube management, ongoing pain management, IV abx, IV LR @100mL/Hr, encouraging PO intake and increased activity, and Labs K/Mg protocol. I- Invasive Devices: PIV x1 Chest tube -20 sxn (NO water seal). D- Discharge: TBD * Jesika Osborne RN - 04/24/2023 4:10 AM CDT Problem: Pain Goal: Exhibits reduction in pain to a level of acceptable comfort Outcome: Ongoing Problem: Falls/Injury-Risk of Goal: Absence of Falls/Injury Outcome: Met this shift Flowsheets Taken 04/24/2023 0006 by Jesika Osborne RN Environmental Safety Interventions: Standard Interventions in Place Mobility Safety Interventions: Standard Interventions in Place Elimination Safety Interventions: Standard Interventions in Place Medication: Standard Interventions in Place Taken 04/21/2023 0400 by Elvi Lewis RN Consults: Physical Therapy (Requires MD Order) Occupational Therapy (Requires MD Order) BP 131/81 Pulse (!) 111 Temp 98.1 ??F (36.7 ??C) Resp 18 Ht 6' (1.829 m) Wt 78.5 kg (173 lb) SpO2 96% BMI 23.46 kg/m?? * Juno Lowery RT - 04/23/2023 9:22 PM CDT Patient has orders for Duoneb qid. Patient seen on Nasal Cannula at 4 LPM. SpO2: 94 %, Respirations: 18, Pulse: (!) 108. Pre treatment Breath sounds All Spivey: Diminished. Patient received nebulizer as ordered via Delivery Device: Mask. Patient tolerated treatment well. Skin assessment: done. Refer to flowsheet for additional information if needed. 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 Referred to [facility] for lung transplant eval but declined due to finances and ongoing occasional smoking. Post-surgical leukocytosis. 04/20: TALC pleurodesis Summary: Crepitus heard and felt at start of shift. MD velázquez, Xray ordered. CT bubbling no longer noted. Several loose stools through shift - evening BM meds held. Pain with movement - managed with PRN Toradol and Dilaudid. F- Feeding & Fluids: Tolerating regular diet, low PO fluid intake but able to eat over 75% of dinner. A- Analgesic & Anticoagulation: Comfort Goal: Numeric, Verbal, Faces: 2 Analgesic Pain r/t Chest tube. Pt movement and oral intake limited by pain. Scheduled Robaxin. PO Tylenol, oxycodone. toradol, dilaudid. Anticoagulation/DVT prevention & plan SCDs S- Skin: Renetta Subcategory Concern(s): Sensory Perception: No Impairment Moisture: Occasionally Moist Moisture Interventions: Minimize chux/linen layers Activity: Chairfast Activity Interventions: Appropriate surface in while in chair Nutrition: Probably Inadequate Nutrition Interventions: Calorie intake Mobility: Slightly Limited Mobility Interventions: Low air loss support Friction and Shear: Potential Problem Friction and Shear Interventions: Protect heels and elbows from friction/slide Total Renetta Score: 16: Pt alternating between bed and chair T- Telemetry: Rhythm: Sinus Tachycardia Ectopy: None E- Emotional & Neuro: Participating in cares Neuro Alert and Oriented R- Respiratory: Respiratory device 4L NC H- Head OUT of Bed & Activity: Activate Fall Alert? (Enter 1 or 0): 1 Ambulating AO1 between bed and chair, fatigues easily Progressive mobility Phases 5-7: Phase 5: 10 steps or more U- Urologic/bowel: Size: Large (04/23/2023 11:14 AM) Voiding urinal, loose stools this shift; bowel meds held. G- Glycemic Control: Not applicable T- Treatment: Chest tube management, ongoing pain management, IV abx, IV LR @100mL/Hr, encouraging PO intake and increased activity, and Labs K/Mg protocol. I- Invasive Devices: PIV x1 Chest tube -20 sxn (NO water seal). 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 Referred to [facility] for lung transplant eval but declined due to finances and ongoing occasional smoking. Post-surgical leukocytosis. 04/20: TALC pleurodesis Summary: Crepitus heard and felt at start of shift. Chest tube dressing changed, pain much improvedand +1 bubbling no longer noted. Diarrhea and excess flatus x2 through shift. Toradol x1. Dilaudid x2. F- Feeding & Fluids: Tolerating regular diet, low PO intake. Pt able to eat about 50% of lunch and dinner. A- Analgesic & Anticoagulation: Comfort Goal: Numeric, Verbal, Faces: 2 Analgesic Pain r/t Chest tube. Abd pain decreased after BM. Pt movement and oral intake limited by pain. Scheduled Robaxin. PO Tylenol, oxycodone. IV toradol, dilaudid. Anticoagulation/DVT prevention & plan SCDs S- Skin: Renetta Subcategory Concern(s): Sensory Perception: No Impairment Moisture: Occasionally Moist Moisture Interventions: Minimize chux/linen layers and Change gown/bath/hygiene Activity: Chairfast Activity Interventions: Reposition every 2 hours and Low air loss mattress Nutrition: Probably Inadequate Nutrition Interventions: Calorie intake Mobility: Slightly Limited Mobility Interventions: Turning every 2 hrs and Low air loss support Friction and Shear: Potential Problem Total Renetta Score: 16: Sacral redness appears to be improving. R/t diarrhea. T- Telemetry: Rhythm: Sinus Tachycardia Ectopy: None E- Emotional & Neuro: Participating in cares and flat affect Neuro Alert and Oriented R- Respiratory: Respiratory device 4L NC (baseline). WOB improved today. H- Head OUT of Bed & Activity: Activate Fall Alert? (Enter 1 or 0): 1 Ambulating Ax1 for chest tubes/lines/IV pole - OOB to chair for most of shift. Early mobility Phases 1-4: Phase 4: Ambulation U- Urologic/bowel: Size: Large (04/23/2023 11:14 AM) Voiding urinal; holding/refusing senna at this time. G- Glycemic Control: Not applicable T- Treatment: Chest tube management, ongoing pain management, IV abx, IV LR @100mL/Hr, encouraging PO intake and increased activity, and Labs K/Mg protocol. I- Invasive Devices: PIV x1 Chest tube -20 sxn (NO water seal). D- Discharge: TBD * Kiki Estrada RT - 04/23/2023 11:34 AM CDT Patient has orders for Duo neb Qid. Patient seen on Nasal Cannula at 4 LPM. SpO2: 98 %, Respirations: 20, Pulse: (!) 104. Pre treatment Breath sounds All Spivey: Clear;Diminished. Patient received nebulizer as ordered via Delivery Device: Mask. Patient tolerated treatment well. Skin assessment: good Refer to flowsheet for additional information if needed. * Kiki Estrada RT - 04/23/2023 7:39 AM CDT Patient has orders for Duo neb Qid. Patient seen on Nasal Cannula at 4 LPM. SpO2: 97 %, Respirations: 20, Pulse: 99. Pre treatment Breath sounds All Spivey: Clear;Diminished. Patient received nebulizer as ordered via Delivery Device: Mask. Patient tolerated treatment well. Skin assessment: good Refer to flowsheet for additional information if needed. * Jesika Osborne RN - 04/23/2023 4:27 AM CDT Med-Surg Care Progression Note Type: Shift to shift summary Length of stay: 8 days Code Status: Full Code Primary Problem: Spontaneous pneumothorax, persistent air leak Hx: End-stage COPD (BL O2 3L). Referred to [facility] for lung transplant eval but declined due to finances and ongoing occasional smoking. Post-surgical leukocytosis. 04/20: TALC pleurodesis Summary: Goal: pain management, mobility progression, BM, increased oral intake. Pt had two semiformed BM. Movement while using commode increased CT pain, managing pain with PRN Tylenol, PRN Oxy, PRNDilaudid, PRN Toradol, and schedRobaxin. Gave PO tylenol once and inj. Dilaudid x2 overnight. F- Feeding & Fluids: Tolerating regular diet, low PO intake. Pt able to eat about 50% of lunch and dinner. A- Analgesic & Anticoagulation: Comfort Goal: Numeric, Verbal, Faces: 2 Analgesic Pain r/t Chest tube - see summary. Abd pain decreased after BM. Pt movement and oral intake limitedby pain. Anticoagulation/DVT prevention & plan SCDs S- Skin: Renetta Subcategory Concern(s): Sensory Perception: No Impairment Moisture: Occasionally Moist Moisture Interventions: Minimize chux/linen layers and Change gown/bath/hygiene Activity: Chairfast Activity Interventions: Reposition every 2 hours and Low air loss mattress Nutrition: Probably Inadequate Nutrition Interventions: Calorie intake Mobility: Slightly Limited Mobility Interventions: Turning every 2 hrs and Low air loss support Friction and Shear: No Apparent Problem Total Renetta Score: 17: Sacral redness appears to be improving T- Telemetry: Rhythm: Sinus Rhythm Ectopy: None E- Emotional & Neuro: Participating in cares and flat affect Neuro Alert and Oriented R- Respiratory: Respiratory device 4L NC. Pt experienced one episode of SOB, resolved with repositioning. No change to CT air leak, still [id number] at 1. H- Head OUT of Bed & Activity: Activate Fall Alert? (Enter 1 or 0): 1 Ambulating Ax1 for chest tubes/lines/IV pole - OOB to chair for most of shift. Early mobility Phases 1-4: Phase 1: Bed Mobility U- Urologic/bowel: Size: Large (04/23/2023 4:00 AM) Voiding urinal; 1 med formed BM today. G- Glycemic Control: Not applicable T- Treatment: Chest tube management, ongoing pain management, IV abx, IV LR @100mL/Hr, encouraging PO intake and increased activity, and Labs K/Mg protocol. Per Ctsx - If pt continues to have air leak, may need thoracotomy (possibly Monday). I- Invasive Devices: PIV x1 Chest tube -20 sxn (NO water seal). Ongoing continuous/intermittent +1 air leak, no crepitus. D- Discharge: TBD * Jesika Osborne RN - 04/23/2023 4:27 AM CDT Problem: Pain Goal: Exhibits reduction in pain to a level of acceptable comfort Outcome: Ongoing Problem: Chest Tube Management Goal: Maintain adequate oxygenation related to chest tube placement Outcome: Ongoing Problem: Falls/Injury-Risk of Goal: Absence of Falls/Injury Outcome: Met this shift Flowsheets Taken 04/22/2023 2342 by Jesika Osborne, ALESSANDRA Environmental Safety Interventions: Standard Interventions in Place Mobility Safety Interventions: Standard Interventions in Place Elimination Safety Interventions: Standard Interventions in Place Medication: Standard Interventions in Place Taken 04/21/2023 0400 by Elvi Lewis RN Consults: Physical Therapy (Requires MD Order) Occupational Therapy (Requires MD Order) BP 131/86 Pulse 99 Temp 97.8 ??F (36.6 ??C) Resp 20 Ht 6' (1.829 m) Wt 78.5 kg (173 lb) SpO2 97% BMI 23.46 kg/m?? * Verito Pereira RN - 04/22/2023 6:15 PM CDT Problem: Falls/Injury-Risk of Goal: Absence of Falls/Injury Outcome: Ongoing Problem: Pain Goal: Exhibits reduction in pain to a level of acceptable comfort Outcome: Ongoing Med-Surg Care Progression Note Type: Shift to shift summary Length of stay: 7 days Code Status: Full Code Primary Problem: Spontaneous pneumothorax, persistent air leak Hx: End-stage COPD (BL O2 3L). Referred to [facility] for lung transplant eval but declined due to finances and ongoing occasional smoking. Post-surgical leukocytosis. 04/20: TALC pleurodesis Summary: Goal: pain management, mobility progression, BM, increased oral intake. Pt had one medium formed BM which decreased abd pain. CT pain remains high - managing with PRN Tylenol, PRN Oxy, PRN Dilaudid, PRN Toradol, and sched. Robaxin. Pt still struggling with mobility and oral intake, limitedby pain. F- Feeding & Fluids: Tolerating regular diet, low PO intake. Pt able to eat about 50% of lunch and dinner. A- Analgesic & Anticoagulation: Comfort Goal: Numeric, Verbal, Faces: 2 Analgesic Pain r/t Chest tube - see summary. Abd pain decreased after BM. Pt movement and oral intake limitedby pain. Anticoagulation/DVT prevention & plan SCDs S- Skin: Renetta Subcategory Concern(s): Sensory Perception: No Impairment Moisture: Occasionally Moist Moisture Interventions: Minimize chux/linen layers and Change gown/bath/hygiene Activity: Chairfast Activity Interventions: Reposition every 2 hours and Low air loss mattress Nutrition: Probably Inadequate Nutrition Interventions: Calorie intake Mobility: Slightly Limited Mobility Interventions: Turning every 2 hrs and Low air loss support Friction and Shear: No Apparent Problem Total Renetta Score: 17: Sacral redness appears to be improving T- Telemetry: Rhythm: Sinus Tachycardia Ectopy: None E- Emotional & Neuro: Participating in cares and flat affect Neuro Alert and Oriented R- Respiratory: Respiratory device 4L NC. Pt experienced one episode of SOB, resolved with repositioning. No change to CT air leak, still [id number] at 1. H- Head OUT of Bed & Activity: Activate Fall Alert? (Enter 1 or 0): 1 Ambulating Ax1 for chest tubes/lines/IV pole - OOB to chair for most of shift. Early mobility Phases 1-4: Phase 4: Ambulation U- Urologic/bowel: Size: Medium (04/22/2023 5:00 PM) Voiding urinal; 1 med formed BM today. G- Glycemic Control: Not applicable T- Treatment: Chest tube management, ongoing pain management, IV abx, IV LR @100mL/Hr, encouraging PO intake and increased activity, and Labs K/Mg protocol. Per Ctsx - If pt continues to have air leak, may need thoracotomy (possibly Monday). I- Invasive Devices: PIV x1 Chest tube -20 sxn (NO water seal). Ongoing continuous/intermittent +1 air leak, no crepitus. D- Discharge: TBD * Elizabeth Nance RN - 04/22/2023 4:29 AM CDT Problem: Pain Goal: Exhibits reduction in pain to a level of acceptable comfort Outcome: Ongoing Note: Ongoing difficult pain management Problem: Venous Thromboembolism (VTE) Goal: Absence of venous thromboembolism (VTE) Outcome: Ongoing Problem: Mobility - Impaired Goal: Demonstrates ability to perform physical activity independently or with assistive devices as needed Outcome: Ongoing Problem: Pressure Injury - Risk of Goal: Absence of pressure injury Outcome: Ongoing Problem: Fluid Volume - Risk of, Imbalanced Goal: Urine output within specified parameters Outcome: Ongoing Problem: Falls/Injury-Risk of Goal: Absence of Falls/Injury Outcome: Met this shift Flowsheets Taken 04/21/2023 2309 by Elizabeth Nance RN Environmental Safety Interventions: Standard Interventions in Place Fall Risk Light on Outside Patient Room Fall Risk manager division Door (NMR) Frequent Re-Orientation and Repetitive Reminders to Ask for Assistance Patient/Family Reminded Regarding Fall Prevention High Risk Armband On (Green Bracelet) Mobility Safety Interventions: Standard Interventions in Place Stay Within Arms Reach Bed Alarm on Transfer/Gait Belt In Use When Patient Is Up Fall Prevention Slippers Remind Patient to Ask for Assistance When Getting Up Elimination Safety Interventions: Standard Interventions in Place Stay Within Arms Reach Offered/Assisted with Toileting Every 2 Hours Medication: Standard Interventions in Place Taken 04/21/2023 0400 by Elvi Lewis RN Consults: Physical Therapy (Requires MD Order) Occupational Therapy (Requires MD Order) Problem: Chest Tube Management Goal: Maintain adequate oxygenation related to chest tube placement Outcome: Met this shift Problem: Gas Exchange - Impaired Goal: Pulse oximetry within specified parameters Outcome: Met this shift Problem: Tissue Perfusion - Altered, Risk of Goal: Maintains optimal tissue perfusion to vital organs as evidenced by BP, HR, and RR within normal limits Outcome: Met this shift * Linh Chowdary RT - 04/21/2023 4:03 PM CDT Problem: Impaired Respiratory Status Goal: Bronchodilation Outcome: Met this shift Note: Patient has orders for duo-neb. Patient seen on Nasal Cannula at 3 LPM. SpO2: 91 %, Respirations: 16, Pulse: (!) 118. Pre treatment Breath sounds All Spivey: Clear;Diminished. Patient received nebulizer as ordered via Delivery Device: Mask. Patient tolerated treatment well. Refer to flowsheet for additional information if needed. * Desi Alonso RN - 04/21/2023 2:02 PM CDT Problem: Tissue Perfusion - Altered, Risk of Goal: Maintains optimal tissue perfusion to vital organs as evidenced by BP, HR, and RR within normal limits 04/21/2023 1401 by Desi Alonso RN Outcome: Met this shift Patient remains hemodynamically stable; HR continues 110-120's, BP 110-130/70's, remains on 3 literNC with oxygen saturations low to mid 90's. Continuous air leak to chest tube continues; 60 cc bloody output. Continue to monitor. Good urine output per elena catheter, elena discontinued at 1330, 100 cc clear yellow urine since removal. Patient on regular diet, appetite fair. Encourage po intake as tolerated. Problem: Pain Goal: Exhibits reduction in pain to a level of acceptable comfort 04/21/2023 1401 by Desi Alonso RN Outcome: Ongoing Patient complains of left sided chest/incisional pain. Medicated with oxycodone 10 mg every 6 hours, lidocaine patch applied, dilaudid 0.5 mg as needed for breakthrough pain with some relief achieved, .5 mg x3 given. Continue to monitor and medicate for pain. Plan transfer to [facility] shortly. DESI ALONSO RN * Kelsie Esparza RT - 04/20/2023 8:10 PM CDT Patient has orders for Duoneb QID. Patient seen on Nasal Cannula at 3 LPM. SpO2: 98 %, Respirations: (!) 9, Pulse: (!) 105. Pre treatment Breath sounds All Spivey: Diminished. Patient received nebulizer as ordered via Delivery Device: Mask. Patient tolerated treatment well. Skin assessment: No issues. Refer to flowsheet for additional information if needed. * Devin Poole RN - 04/20/2023 5:12 PM CDT Critical Care Progression Note Type: Shift to shift summary Length of stay: 5 days Code Status: Full Code Primary Problem: L Pneumothorax Summary: Alert and oriented x 4. Uncontrolled pain. Dilaudid given q1h. Oxycodone PO given once with no relief. Hemodynamics stable. R radial art line in place. Baseline 3L NC with Spo2 95%. Chest tube to suction -20 mmhg. Continuous air leak noted. Due to pain, pt has been refusing turns. Micro turns done and pt education provided on the importance of turning. F- Feeding: Encourage PO Fluids: Continue IVF LR 50 ml/hr A- Analgesic: Comfort Goal: Numeric, Verbal, Faces: 3 Difficult pain management dilaudid q1h, oxycodone q6h Anticoagulation & DVT prophylaxis: SCDs S- Skin: Renetta Subcategory Concern(s): Sensory Perception: No Impairment Moisture: Occasionally Moist Moisture Interventions: Minimize chux/linen layers Activity: Bedfast Activity Interventions: Reposition every 2 hours, Low air loss mattress, and Safer bundle Nutrition: Probably Inadequate Nutrition Interventions: Dietary supplement Mobility: Very Limited Mobility Interventions: Turning every 2 hrs, Low air loss support, and Pt's been refusing turns due to uncontrolled pain. Encourage turns as much as possible Friction and Shear: Potential Problem Friction and Shear Interventions: Limit head of bed <30 degrees and Protect heels and elbows from friction/slide Total Renetta Score: 14: No injury noted, interventions in place T- Telemetry: Rhythm: Sinus Tachycardia Rhythm tachycardia baseline E- Emotional: Appropriate & participating in cares Neuro: Vincent Agitation Sedation Scale (RASS): 0 Alert and Calm; CAM-ICU Score (Calculated): Negative Alert and Oriented R- Respiratory: Uses home O2/at baseline 3L H- Head OUT of Bed & Activity: PROM & repositioning q2 Early mobility Phase 0: PROM: PROM Right upper extremity;PROM Left upper extremity;PROM Right lowerextremity;PROM Left lower extremity U- Urologic (Bladder): Indwelling catheter can be discontinued as soon as possible. This chief writer decided to keep elena in due to uncontrolled pain and weakness Bowel: Size: Medium (04/19/2023 10:44 AM) G- Glycemic Control: Not applicable T- Treatment: Pain management I- Invasive Devices: R radial art line D- Discharge: Not meeting goals for discharge or transfer Anticipated Disposition: Plan to: Unknown, to be determined Discussed with Provider at bedside Provider: Dr. Tarango, Dr. Chaudhary * Sadi Hutson RT - 04/20/2023 4:00 PM CDT Patient has orders for Duoneb QID. Patient seen on Nasal Cannula at 3 LPM. SpO2: 97 %, Respirations: 15, Pulse: (!) 103. Pre treatment Pt was seen this shift and he refused nebs X2 Skin assessment: No Issues Refer to flowsheet for additional information if needed. * April Pierre - 04/20/2023 10:58 AM CDT Report to Devin APARICIO. Pt medicated for pain, tolerating meds well. 6w aware pt transferring to ICU.Pt states no family present today. To ICU with RN and NA full manager cardiac cath. * Kelsea Stephen SW - 04/20/2023 10:24 AM CDT Care Management - Progress Note Patient's chart reviewed. Patient discussed in rounds. Assessment: Admitted for L pneumothorax. OR today for VATS. Plan to transfer to ICU post-op. Anticipated Discharge Date: TBD Anticipated Discharge Needs: TBD Potential Barriers: None identified Care Coordination Plan & Communication with Patient/Family: Pt in OR for VATS procedure then will transfer to ICU. TBD for d/c needs pending medical stability. Kelsea Samson, [employer] Social Work Ext [phone] * April Pierre - 04/20/2023 9:54 AM CDT Pt in PACU. He is quite drowsy, skin cool on extremities, trunk warm. He follows commands. Decreased breath sounds with cracking on inspiration. Unable to ausciltate heart sounds. Hr st on manager cardiac cath. No ectopy. Cuff and art line pressures correlating. BP 135/89 Pulse (!) 116 Temp 98.1 ??F(36.7 ??C) Resp 17 Ht 6' (1.829 m) Wt 73 kg (160 lb 15 oz) SpO2 100% BMI 21.83 kg/m?? Xray here for post op cxr. * Bipin Douglas RN - 04/20/2023 6:49 AM CDT Problem: Falls/Injury-Risk of Goal: Absence of Falls/Injury 04/20/2023648 by Bipin Douglas RN Outcome: Ongoing 04/20/2023358 by Bipin Douglas RN Outcome: Ongoing Problem: Pain Goal: Exhibits reduction in pain to a level of acceptable comfort 04/20/2023648 by Bipin Douglas RN Outcome: Ongoing 04/20/2023358 by Bipin Douglas RN Outcome: Ongoing Problem: Venous Thromboembolism (VTE) Goal: Absence of venous thromboembolism (VTE) Outcome: Ongoing * Bipin Douglas RN - 04/20/2023 3:59 AM CDT Problem: Falls/Injury-Risk of Goal: Absence of Falls/Injury Outcome: Ongoing Problem: Pain Goal: Exhibits reduction in pain to a level of acceptable comfort Outcome: Ongoing * Kelsie Esparza RT - 04/19/2023 8:04 PM CDT Patient has orders for Duoneb QID. Patient seen on Nasal Cannula at 2 LPM. SpO2: 95 %, Respirations: 18, Pulse: (!) 112. Pre treatment Breath sounds All Spivey: Diminished. Patient received nebulizer as ordered via Delivery Device: Mouthpiece. Patient tolerated treatment well. Skin assessment: No issues. Refer to flowsheet for additional information if needed. * Sadi Hutson RT - 04/19/2023 1:17 PM CDT Patient has orders for Duoneb QID. Patient seen on Nasal Cannula at 2.5 LPM. SpO2: 95 %, Respirations: 18, Pulse: 99. Pre treatment Breath sounds All Spivey: Diminished;Expiratory;Wheeze. Patient received nebulizer as ordered via Delivery Device: Mouthpiece. Patient tolerated treatment well. Skin assessment: No issues Refer to flowsheet for additional information if needed. * Kiera Pinto RN - 04/19/2023 9:36 AM CDT Problem: Falls/Injury-Risk of Goal: Absence of Falls/Injury Outcome: Met this shift Flowsheets (Taken 04/19/2023829) Environmental Safety Interventions: Standard Interventions in Place Fall Risk Light on Outside Patient Room Patient/Family Reminded Regarding Fall Prevention High Risk Armband On (Green Bracelet) Hi-Lo Bed ([employer]) Mobility Safety Interventions: Standard Interventions in Place Stay Within Arms Reach Transfer/Gait Belt In Use When Patient Is Up Bed Alarm on Fall Prevention Slippers Remind Patient to Ask for Assistance When Getting Up Elimination Safety Interventions: Standard Interventions in Place Stay Within Arms Reach Offered/Assisted with Toileting Every 2 Hours Medication: Standard Interventions in Place Consults: Physical Therapy (Requires MD Order) Occupational Therapy (Requires MD Order) Social Service Consult Problem: SAFETY Goal: *Communicates safety needs Outcome: Met this shift Problem: Chest Tube Management Goal: Maintain adequate oxygenation related to chest tube placement Outcome: Met this shift Large PTX on CXR. MD aware, respiratory status stable at this time. Sats stable on 2.5-3L O2. * Melisa Mckeon RT - 04/18/2023 8:50 PM CDT Patient has orders for duoneb qid. Patient seen on Nasal Cannula at 3 LPM. SpO2: 94 %, Respirations: 18, Pulse: (!) 107. Pre treatment Breath sounds All Spivey: Diminished;Expiratory;Wheeze. Patient received nebulizer as ordered via Delivery Device: Mouthpiece. Patient tolerated treatment well. Refer to flowsheet for additional information if needed. * Froilan Kohli RN - 04/18/2023 5:24 PM CDT Problem: Falls/Injury-Risk of Goal: Absence of Falls/Injury Outcome: Met this shift Problem: Pain Goal: Exhibits reduction in pain to a level of acceptable comfort Outcome: Met this shift Problem: Chest Tube Management Goal: Maintain adequate oxygenation related to chest tube placement Outcome: Met this shift * Eva Redding RT - 04/18/2023 1:12 PM CDT BS decreased with wheezes t/o. Sats 96% on 3 liter nc. Duoneb QID given. BS increased wheezes and aeration after the nebs. * Martin Khan, PT - 04/18/2023 11:10 AM CDT Acute Physical Therapy Treatment Patient Name: Carl Prasad Today's Date: 04/18/2023 Admission Date: 04/15/2023 Precautions Assessment PT Assessment/Recommendations Assessment: Pt progressing well towards goals. SBA for transfers and short bout of ambulation in room. Continues to be mildly unsteady, but no LOB. General deconditioning. On 3.5L throughout and pt with mild ELIZONDO and sats in mid 90s post ambulation. Continue to recommend assist x1 for mobility. Recommendations for Nursing: Mobilize assist of 1 with gait belt, Up to chair 2- 3x/day, Ambulate 2-3x/day Discharge Support Recommendations: Requires increased support/assist Mobility Needs at Discharge: Assist of 1 person with mobility Post Acute Therapy Needs: Continued PT at next level of care Encounter Details General Diagnosis: Tension pneumothorax Admission/Diagnosis Details: Pt admitted for SOB and found to have tension pneumothorax Pertinent Past Medical History: chronic hypoxic respiratory failure (on 3 LPM) 2/2 severe COPD, provoked DVT and PE not on AC Patient Seen In: Room Family/Caregiver Present: No Subjective Comments: Pt agreeable to therapy Lines and Tubes: Chest Tube (L) Subjective/Social History Home Setup Type of Home: Apartment Lives With: Alone Home Layout: One level Home Entry: Stairs to enter with rails Rails: Bilateral Number of stairs: 2 flights Prior Level of Functional Mobility Independent with: All Mobility Mobility Equipment Used: None DME owned: None History of falls: Denies Pain Patient complained of no pain throughout session Objective Therapy Vitals SpO2: 96-98 Oxygen Delivery Device: Nasal Cannula Amount of Supplementary O2: 3.5L Therapeutic Activity Bed Mobility Bed Mobility Roll Right: Standby assist Roll Left: Standby assist Supine to Sit: Standby assist Sit to Supine: Standby assist Dangling: Independent Transfers Sit to/from Stand Level of Assist: Contact guard/steadying assist, Standby assist Assistive Device: No assistive device Stand Pivot Stand Pivot Level of Assistance: Contact guard/steadying assist, Standby assist Stand Pivot Assistive Device: No assistive device Gait Training Ambulation Bout 1 Distance (ft): 70' x2 Assistive Device: No assistive device Level of Assist: Contact guard/steadying assist, Standby Assist Quality of Gait: Progressing to SBA by end of session. Continues to be mildly unsteady but no LOB. Gait in room 2/2 chest tube [facility] AM-PAC 6-Clicks Turning over in bed (including adjusting bed clothes, sheets, and blankets): Minimum/contact guard/standby assist Sitting down and standing up from a chair with arms: Minimum/contact guard/standby assist Moving from lying on back to sitting on the side of bed: Minimum/contact guard/standby assist Moving to and from a bed to a chair: Minimum/contact guard/standby assist Walk in hospital room?: Minimum/contact guard/standby assist Climbing 3-5 steps with a railing: Maximum/moderate assist AM-PAC 6 Clicks: Mobility Total Score: 17 The following scores are predictive of discharge disposition during acute hospitalization: Home= 20or greater; Home with Home Health=18; Continued skilled care at appropriate facility= 14 or less. Education/Safety Education Provided Patient Education: Role of PT, ROM/Positioning, Bed mobility, Transfers, Ambulation, Safety with mobility, Plan of care, Risk of falls, Discharge recommendations Family Education: Family not present Safety Interventions Fall Risk?: Yes Safety Interventions/Patient Disposition: Standard interventions, In bed, All needs within reach (Sitting EOB at end of session) GOALS-The interventions during this session were provided to address the goals set forth on evaluation and are ongoing unless otherwise indicated. Time Frame Goals target date: 05/01/23 Supine to Sit Patient will perform supine to sit with: Emanuel Sit to/from Stand Patient will perform sit to/from stand transfer with: Emanuel Assistive Device: No assistive device Gait Level of Assist: Independent Assistive Device: No assistive device Distance: 150' Stair Negotiation Patient will perform stairs with: Modified independence UE Support: Bilateral rails Number of Stairs: 12 Pattern: Step to pattern TIME SPENT WITH PATIENT PT Timed Code Treatment Minutes (outside of evaluation) PT Therapeutic Activity: 10 PT Gait Trainin PT Timed Code Treatment Minutes PT Total Billable Minutes: 24 Minutes * Marcela Pizarro OT - 04/18/2023 9:54 AM CDT Occupational Therapy Acute Evaluation Patient Name: Carl Prasad Today's Date: 04/18/2023 Admission Date: 04/15/2023 ASSESSMENT/PLAN/RECOMMENDATIONS Assessment/Plan/Recommendations OT Assessment Results: Impaired ADLs, Impaired IADLs, Impaired functional mobility, Impaired endurance, impaired UE function, Impaired strength Strengths: Age, Prior level of function, Good family support, Patient motivation, Patient cooperation Limitations/Discharge Barriers: Current medical status, Limited mobility, Needs assist with ADL, Decreased strength, Decreased activity tolerance, Decreased ROM Rehab Potential: Good Treatment Interventions: ADL retraining, Functional transfer training, UE strengthening/ROM, Endurance training, Patient/family training, Home safety education, Equipment evaluation/education, Continued evaluation OT Frequency: 1x/day, 5-7 days a week Discharge Support Recommendations: Requires increased assist/support Requires assist with the following ADLs: Grooming/hygiene, LE dressing, UE dressing, Toileting, Shower/bathing Requires assist with the following IADLs: Meal prep, Homemaking, Driving Recommended level of supervision at discharge due to current cognitive status: No Supervision Post Acute Therapy Needs: Continued OT at Next Level of Care OT Plan Comments: Pt was seen in room for OT evaluation. Pt lives alone in an apartment. Pt is on disability. At baseline pt is independent with all ADLs and most IADLs. Pt does easy meals. His mother assists with cleaning. Pt uses no AD. Pt was O x 4. Demonstrates accurate recent/ remote memory. Pt with left UE functional impairments as it feels sore/ weak after chest tube placement. Pt completed bed mobility with SBA. Completed transfers and ADL distance mobility with CGA, slow/ steady. Completed hygienes in chair with set up assist, unable to reach feet for LE dressing. Was issued manufacturing clerk and educated on use. Pt does not appear safe for home alone at this time. Will follow for functionalgoals. Thank you. Recommendations For Next Session: transfers, in room mobility, AE for LED (has manufacturing clerk), hygienes at sink when off suction INPATIENT REHAB FACILITY CANDIDATE Inpatient Rehabilitation Facility Candidate Appropriate for Acute Inpatient Rehab?: No Not appropriate due to: Minimal skilled occupational therapy needs GENERAL General Visit Type: Initial Evaluation Diagnosis: Tension pneumothorax Admission/Diagnosis Details: Pt admitted for SOB and found to have tension pneumothorax Pertinent Past Medical History: chronic hypoxic respiratory failure (on 3 LPM) 2/2 severe COPD, provoked DVT and PE not on AC Patient Seen In: Room Family/Caregiver Present: No Allopathic Doctor Used?: NA Hearing: Within Functional Limits Lines and Tubes: Chest Tube (left) Subjective (Comment): Pt motivated to get OOB this AM. PRECAUTIONS Therapy Vitals SpO2: 98% Oxygen Delivery Device: Nasal Cannula Amount of Supplementary O2: 3.5L SAFETY INTERVENTIONS Safety Interventions Fall Risk?: Yes Safety Interventions/Patient Disposition: Standard interventions, [place] sitter on, In chair, Call light in hand, All needs within reach PAIN Patient complained of sore left UE - RN aware. HOME LIVING Home Setup Type of Home: Apartment Lives With: Alone Home Layout: One level Home Entry: Stairs to enter with rails Rails: Bilateral Number of stairs: 2 flights PRIOR FUNCTION ADL/IADL Prior Function ADL/IADL Patient is independent with: ADLs, Shopping, Meal Preparation, Safemaker, Medication Management, Driving (prepares easy meals) Patient needs assist with: Homemaking Receives Help From: Family PRIOR FUNCTION MOBILITY Prior Level of Functional Mobility Independent with: All Mobility Mobility Equipment Used: None DME owned: None History of falls: Denies COGNITIVE STATUS Cognitive Status Cognition Comments: Pt was O x 4. Demonstrates grossly accurate recent/ remote memory. UPPER EXTREMITY ASSESSMENTS ROM RUE ROM: Functional LUE ROM : Non-Functional Comments: Left UE with impaired AROM (50% of normal) as sore s/p chest tube. Strength RUE Strength: Functional LUE Strength: Non-Functional Comment: Left UE sore with movement, limiting pt's ability to use it. AM-PAC Outcome Measure 6 Clicks Daily ADL AM-PAC Putting on and taking off regular lower body clothing?: A Lot Bathing (including washing, rinsing, drying)?: A Lot Toileting, which includes using toilet, bedpan or urinal?: A Little Putting on and taking off regular upper body clothing?: A Little Taking care of personal grooming such as brushing teeth?: None Eating meals?: None AM-PAC Daily Activity Raw Score: 18 AM-PAC Daily Activity CMS 0-100% Score: 46.65 AM-PAC Daily Activity t-Scale Score: 38.66 The following scores are predictive of discharge disposition during acute hospitalization: Home= 20.1; Home with Home Health= 17.9; TCU=14; IRF=13.6; LTACH=11.5 Please refer to narrative for assessment of functional performance and discharge recommendations asscores may not always reflect mobility, cognitive aspects of performance or instrumental activitiesof daily living (IADLs) CURRENT ADL/IADL STATUS Current ADL Status 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 Unable to reach feet for LE dressing. Current IADL Status Meal Preparation: needs assist Medication Management: per baseline Safemaker: per baseline FUNCTIONAL MOBILITY Bed Mobility Rolling: SBA Scooting: SBA Supine to Sit: SBA Sit to Supine: SBA Dangling: Modified independent Functional Transfers Sit to Stand: Contact guard Stand to Sit: Contact guard Functional Transfer Comments: CGA, slow and steady with transfers Functional Mobility Functional Mobility: Ambulated ADL distances with CGA - slow/ steady. ACTIVITY TOLERANCE Activity Tolerance Endurance: Participates 20-30 min of therapy session Activity Tolerance Comments: fair PATIENT EDUCATION Patient Education Patient Education: Role of OT, Plan of care, Adaptive equipment, Compensatory techniques for ADLs TIME SPENT WITH PATIENT OT Timed Code Treatment Minutes OT Evaluation: 10 OT Self-Care/Home Management: 5 OT Therapeutic Activity: 10 OT Total Minutes Spent with Patient Total Minutes Spent With Patient (billable): 25 Minutes GOALS Time Frame Short term goals target date: 04/25/23 correction goals target date: 05/02/23 Patient/Family Participation in Goal Setting Patient participated in goal setting: Yes Patient goal preference: Pt would like to return home. STG Grooming Patient will complete daily grooming and light hygiene task: with supervision, while standing at the sink Outcome: Goal Ongoing STG UE Dressing Patient will dress upper body donning/doffing: hospital gown, with set-up Outcome: Goal Ongoing STG LE Dressing Patient will dress lower body donning/doffing: underwear, pants, socks, shoes, with compensatory strategies, with adaptive equipment/strategies, with supervision Outcome: Goal Ongoing STG Toileting Patient will complete toileting: with supervision STG Endurance/Activity Tolerance As a measure of improved activity tolerance, patient will perform: ADL task, for 5 minutes, with supervision, while standing at the sink Outcome: Goal Ongoing Mill Recorder Goals Patient will complete ADLs including: hygiene/grooming, dressing, toileting, independently Outcome: Goal Ongoing * Modesta Quinones RN - 04/18/2023 8:43 AM CDT Problem: Chest Tube Management Goal: Maintain adequate oxygenation related to chest tube placement Outcome: Met this shift Note: Pt with left chest tube to -20 cm H20 suction, intermittent air leak. Pt satting upper 90s on3L O2 NC, baseline for pt. No crepitus noted. Serous drainage present. Encouraging IS use, splinting education provided again. * Renée Cedeño RN - 04/17/2023 11:55 PM CDT Problem: Pain Goal: Exhibits reduction in pain to a level of acceptable comfort Outcome: Met this shift Left upper chest and back pain managed with Tylenol and Oxycodone. Declinec ice/he.at Problem: Chest Tube Management Goal: Maintain adequate oxygenation related to chest tube placement Outcome: Met this shift Left pigtail chest tube to -20cm suction. No crepitus, int air leak. Dressing CDI, all connections banded. No output. Patient breathing coarse, on MARKETING PRODUCTION COORDINATOR 3L O2. Problem: Communication Goal: Demonstrates/exhibits ability to communicate needs effectively Outcome: Completed Pt is A&Ox3, able to verbalize and make needs known. Demonstrates use of equipment and tools inthe hospital environment to keep himself safe. * China Grijalva, - 04/17/2023 7:50 PM CDT Patient has orders for Duoneb QID. Patient seen on Nasal Cannula at 3 LPM. Pre treatment Breath sounds All Spivey: Diminished;Clear. Patient received nebulizer as ordered via Delivery Device: Mouthpiece. Patient tolerated treatment well. Skin assessment: WDL Refer to flowsheet for additional information if needed. * Yamilka Cano RN - 04/17/2023 5:24 PM CDT Problem: Falls/Injury-Risk of Goal: Absence of Falls/Injury Outcome: Met this shift Note: Fall risk precautions in place, bed in low position with bed alarm on, call light within reach Problem: Pain Goal: Exhibits reduction in pain to a level of acceptable comfort Outcome: Met this shift * Ramonita Wilder RT - 04/17/2023 11:58 AM CDT Patient seen on Nasal Cannula at 3 LPM. SpO2: 97 %, Respirations: 16, Pulse: (!) 104. Pre treatment Breath sounds All Spivey: Diminished;Clear. Patient received nebulizer as ordered via Delivery Device: Mouthpiece. Patient tolerated treatment well. Skin assessment: No skin breakdown noted. Refer to flowsheet for additional information if needed. * Modesta Quinones RN - 04/17/2023 8:29 AM CDT Problem: Falls/Injury-Risk of Goal: Absence of Falls/Injury Outcome: Met this shift Note: Pt in bed with fall light, bed alarm on, call light within reach. Problem: Pain Goal: Exhibits reduction in pain to a level of acceptable comfort Outcome: Met this shift Pt denied pain following interventions on mine shifter. * Tyler Crowell RN - 04/17/2023 2:26 AM CDT Problem: Falls/Injury-Risk of Goal: Absence of Falls/Injury Outcome: Met this shift Flowsheets Taken 04/17/2023 0002 by Tyler Crowell RN Environmental Safety Interventions: Standard Interventions in Place Leave Bathroom Light On at Night Keep Assistive Device Close At All Times Hi-Lo Bed (Versa-Care) High Risk Armband On (Green Bracelet) Mobility Safety Interventions: Standard Interventions in Place Bed Alarm on Elimination Safety Interventions: Standard Interventions in Place Medication: Standard Interventions in Place Taken 04/16/2023 1510 by Carri Barr RN Consults: Physical Therapy (Requires MD Order) Note: Pt did not have any falls during the night. Bed alarm on for safety. Problem: Communication Goal: Demonstrates/exhibits ability to communicate needs effectively Outcome: Met this shift Note: Pt oriented and able to communicate needs to staff. Problem: Pain Goal: Exhibits reduction in pain to a level of acceptable comfort Outcome: Met this shift Note: Pt given prn oxycodone for pain. * Carri Barr RN - 04/16/2023 5:28 PM CDT Problem: Pain Goal: Exhibits reduction in pain to a level of acceptable comfort 04/16/2023 1728 by Carri Barr RN Outcome: Met this shift Problem: SAFETY Goal: *Communicates safety needs Outcome: Met this shift * Mandy Mccann LICSW - 04/16/2023 1:59 PM CDT Discharge Planning Initial Assessment Patients chart reviewed. Patient discussed in rounds. Admitting diagnoses: Spontaneous pneumothorax [J93.83] Carl Prasad is a 53 y.o. male with a history of COPD on 3 L of oxygen at baseline who presents to the emergency department via EMS from [place] ED for evaluation of a pneumothorax. Per EMS, the patient was initially brought to [place] ED with 2 days of shortness of breath, and his initialoxygen saturation was 50%. Chest tube placement Admitted from: Home Prior: Living Arrangements: Alone Support Systems: Family members- mother and siblings, Yelitza Sheikh [phone] Primary decision maker: Patient DME prior to admission: none Anticipated Discharge Needs: to be determined Care coordination initiated: Met with patient;Chart reviewed;Care discussed during rounds with nursing SW met with the pt at bedside to introduce role with care needs and d/c planning. Pt reports at baseline he is independent with his IADL and ADLs including bill paying and medication managements. Pt is not a and does not have a HCD. Pt has no hx of home care or other community supports. Pt sees Dr. Mena for primary care at the [place]. When the pt is ready for d/c, he says his sister or friend will provide transportation. SW phone call with his sister Yelitza Sheikh who says she would like to be updated [phone]. She says the pt really needs a different dwelling that has no stairs. [place]. Barriers to discharge: medical stability Care management will continue to follow. JORDAN Borjas, MANAGER SALES AND MARKETING Pager: [phone] 04/16/2023 2:13 PM * Eva Redding, RT - 04/16/2023 12:56 PM CDT BS decreased t/o. Sats 96% on 3 liter nc. Duoneb QID given. BS exp wheezes with increased aeration after the nebs. * Carri Barr RN - 04/16/2023 9:02 AM CDT Problem: Communication Goal: Demonstrates/exhibits ability to communicate needs effectively Outcome: Met this shift Note: Makes needs know appropriately Problem: Pain Goal: Exhibits reduction in pain to a level of acceptable comfort Outcome: Met this shift Note: Pain reduced to dull ache today. Schedule robaxin and PRN tylenol given * Emi Cooper RN - 04/16/2023 5:27 AM CDT Problem: Falls/Injury-Risk of Goal: Absence of Falls/Injury Outcome: Met this shift Problem: Pain Goal: Exhibits reduction in pain to a level of acceptable comfort Outcome: Met this shift Note: Given oxycodone 5mg with relief BP 124/79 Pulse (!) 103 Temp 98.4 ??F (36.9 ??C) Resp 19 Ht 6' Wt 73 kg (160 lb 15 oz) SpO2 95% BMI 21.83 kg/m?? * Carri Barr RN - 04/15/2023 6:18 PM CDT Problem: Communication Goal: Demonstrates/exhibits ability to communicate needs effectively Outcome: Met this shift Note: Patient A&O, able to make needs known Problem: Pain Goal: Exhibits reduction in pain to a level of acceptable comfort Outcome: Met this shift Note: Giving scheduled and PRN pain medications documented in this encounter OR Notes * OR Surgeon - August Tarango MD - 04/20/2023 9:19 AM CDT Op note Pre-op diagnosis: Emphysema left lung with continuous moderate air leak Postop diagnosis: Same Procedure: Left VATS with instillation of 8 grams talc pleurodesis. Surgeon: Anshul Tarango MD Ironer Sock: Renée Sky NP Dictation: Under general anesthesia the patient prepped and draped in usual fashion. A small incision was made below the left scapula. The Thoracoport was inserted and the camera used to visualize the left lung. There is extensive emphysematous changes of the left upper and lower lobe noted. I cannot demonstrate an obvious air leak. With no obvious area to staple we chose to instill 8 g of talc for pleurodesis. At the conclusion there was excellent coating of the parietal and visceral surfaces of the lung. Two #28 chest tubes were placed to the apex of the pleural cavity. I suspect the patient will continue to have a air leak until the pleurodesis will take effect. Chest tubes were secured in place with 0 silk suture and the chest wall muscle was closed with interrupted 2-0 Vicryl suture.The skin was approximated with interrupted 3- 0 nylon sutures. educational assistant: Renée Sky NP assisted with opening, closure, exposure of the wound and talc pleurodesis. documented in this encounter ED Notes * David Chapman RN - 04/15/2023 9:34 AM CDT Report called to [facility]. Transport ordered. * Tia Tam RN - 04/15/2023 7:21 AM CDT Pt moved to Cart 17. Report given to [facility]. * Tia Tam RN - 04/15/2023 7:06 AM CDT Oxygen decreased to 4L via oxymask * Tia Tam RN - 04/15/2023 7:04 AM CDT MD Angulo at bedside suturing chest tube in place. * Tia Tam RN - 04/15/2023 6:59 AM CDT Oxygen decreased to 6L via oxymask. * Hailee Angulo MD - 04/15/2023 6:56 AM CDT Images from the original note were not included. CHIEF COMPLAINT: Pneumothorax HPI: Initial history obtained at 6:56 AM 07/29/23. Carl Prasad is a 53 y.o. male with a history of COPD on 3 L of oxygen at baseline who presents to the emergency department via EMS from [place] ED for evaluation of a pneumothorax. Per EMS, the patient was initially brought to [place] ED with 2 days of shortness of breath, and his initialoxygen saturation was 50%. Xray at [place] showed a left sided tension pneumothorax. A chest tube was placed, but the hospital felt that they could not adequately care for the patient there, so [facility]was [facility]. The patient received 1 L of normal saline, 2 g of magnesium, and2 mg of morphine prior to transfer. EMS placed the patient on high flow oxygen during transport. Blood pressure was 134/85 and heart rate was 90-100 bpm. Here, the patient reports that his shortness of breath feels better, and he only has some discomfort associated with his chest tube placement. Herates this pain 3/10 in severity. He denies any nausea, abdominal pain, fevers, or cough. Independent Historian: History obtained from EMS and the patient. Review of External Notes: I did review the notes from the ER. MEDICATIONS: Trelegy Ellipta Home oxygen Albuterol sulfate PAST MEDICAL HISTORY: Recurrent DVT Former smoker COPD PAST SURGICAL HISTORY: Lumbar discectomy PHYSICAL EXAM: Physical Exam Temperature: 97.7 ??F (36.5 ??C) Pulse: 99 Respirations: 15 BP: (!) 126/96 SpO2: 96 % Constitutional: Appears fatigued. HENT: Head: No signs of trauma Ears: TM's and external ears are normal bilaterally. Nose: Nose normal Mouth/Throat: Oropharynx is clear and moist. No oropharyngeal exudate. Eyes: Conjunctivae are normal. Pupils are equal, round, and reactive to light. Neck: Supple, normal ROM. Cardiovascular: Normal rate, regular rhythm. Normal heart sounds. No murmur, gallop or friction rub. Intact distal pulses. Pulmonary/Chest: Diffuse expiratory wheezing throughout. Chest tube in the left chest. Abdominal: Soft, non-distended, no mass. No tenderness, rebound and no guarding. Musculoskeletal: Normal ROM. No tenderness. No edema. Lymphadenopathy: No cervical adenopathy. Neurological: Alert. Face grossly symmetric Normal muscle tone. Moves all extremities equally. Skin: Skin is warm and dry. No rash noted. Psychiatric: Normal mood and affect. ED COURSE: Procedures: I did place one 0-0 silk suture on the left chest wall to secure the chest tube in place. EKG: (0738 Hours): Indication: Shortness of breath Ventricular Rate: 98 QRS [place]: 73 Intervals: NE 142, QRSD 86, QTc 438 Interpretation: Sinus rhythm. Laboratory: Labs Reviewed BASIC METAB PROFILE - Abnormal; Notable for the following components: Result Value CARBON DIOXIDE 35 (*) GLUCOSE 112 (*) All other components within normal limits CBC/DIFF - Abnormal; Notable for the following components: WBC 13.9 (*) HEMOGLOBIN 13.3 (*) MCHC 32 (*) PMN ABSOLUTE 11.75 (*) IG ABSOLUTE 0.10 (*) LYMPH ABSOLUTE 0.73 (*) MONO ABSOLUTE 1.27 (*) All other components within normal limits LIVER PROFILE - Abnormal; Notable for the following components: AST (SGOT) 8 (*) All other components within normal limits POCT VBG/NA/K/GL - Abnormal; Notable for the following components: POCT pH Venous 7.25 (*) POCT pCO2 Venous 86 (*) POCT pO2 Venous 23 (*) POCT HCO3 VENOUS 38 (*) POCT BASE EXCESS 6.6 (*) POCT CSO2 27.8 (*) POCT GLUCOSE 114 (*) All other components within normal limits PROTIME/INR - Normal POCT CALCIUM, IONIZED - Normal POCT LACTIC ACID - Normal POCT CREATININE - Normal POCT CHLORIDE - Normal SARS-COV-2 BY RAPID PCR - Normal EXTRA TUBE-SST (LAB USE ONLY) EXTRA TUBE PST (LAB USE ONLY) EXTRA TUBE-BLOOD BANK (LAB USE ONLY) EXTRA TUBE-EDTA (LAB USE ONLY) Imaging: XRAY CHEST PORTABLE Final Result IMPRESSION: 1. Small bore catheter projecting over the left upper thorax. Small left pneumothorax with lung edge projecting at the level of the posterior left 3rd rib. No mediastinal shift. 2. Subsegmental left lower lobe atelectasis. REPORT SIGNED BY Nini Maier M.D. Interventions: 0644: Fentanyl 25 mcg, IV 0654: Albuterol-Ipratropium (Duo Neb) 3 mL, Neb 0655: Solu-Medrol 125 mg, IV 0750: Dilaudid 0.5 mg, IV 0924: Dilaudid 0.5 mg, IV Assessments: Notable Events: Independent Interpretation (X-rays, CTs, rhythm strip): I did review the patient's chest x-ray which shows the chest tube to be in good position Consultations/Discussion of Management or Tests: None Social Determinants of Health affecting care: None Stabilization Course: (0683) - The patient arrived directly into Stabilization Room 3 due to the severity of the patient's condition. A Med Team STAT was called and I was paged and present at bedside awaiting patient's arrival. The patient was transferred to an emergency center bed. History and rapid physical was performed. Patient was immediately placed on continual cardiac monitoring and pulse oximetry. (5633) - Portable chest X-ray was performed. (0012) - I reviewed the patient's vital signs, past medical history, previous medical charts, and nursing notes. ED Vitals: Patient Vitals for the past 24 hrs: BP Temp Pulse Resp SpO2 04/15/23 0720 (!) 133/91 -- 89 15 100 % 04/15/23 0715 (!) 121/90 -- 95 20 100 % 04/15/23 0710 (!) 127/92 -- 93 19 100 % 04/15/23 0705 134/89 -- 93 15 100 % 04/15/23 0700 (!) 129/93 -- 93 18 100 % 04/15/23 0655 127/87 -- 94 17 100 % 04/15/23 0650 138/89 -- 89 14 100 % 04/15/23 0645 (!) 126/93 -- 93 15 95 % 04/15/23 0640 (!) 126/96 97.7 ??F (36.5 ??C) 99 15 96 % MDM: The patient was seen and examined as above. The patient presents with a known pneumothorax status post chest tube placement. He came in on high flow oxygen, but was satting at 100% and his respiratory rate looked really good so we did wean his oxygen down. He is normally just on 3 L. I he is wheezyso I did give him a neb and 1 dose of Solu-Medrol. His labs are essentially unremarkable with the exception of some mild leukocytosis. His COVID test is negative. He does have a mild respiratory acidosis. His chest x-ray showed the tube to be in good position. I did secure it with a suture to the chest wall for stability. At this time he will be admitted. I spoke with the hospitalist accepted theadmission. They will consult pulmonary. >>> Critical care time spent on the management of this patient, exclusive of procedures, was greater than 30 minutes minutes. <<< DIAGNOSIS: ICD-10-CM 1. Spontaneous tension pneumothorax J93.0 2. COPD exacerbation (HCC) J44.1 DISPOSITION: Admit to the care of [facility] Medicine New Prescriptions No medications on file ATTESTATION: Scribe Attestation: I, [place], am serving as a scribe to document services personally performed by Hailee Angulo MD, based on my observations and the provider's statements to me. Provider Attestation: Portions of this medical record were completed by a scribe. UPON MY REVIEW AND AUTHENTICATION BY ELECTRONIC SIGNATURE, this confirms (a) I performed the applicable clinical services, and (b) the record is accurate. Hailee Angulo MD 04/15/23 04/15/2023 [facility] * Tia Tam RN - 04/15/2023 6:38 AM CDT Patient arrives via EMS from [place] with c/o pneumothorax with SOB. Hx of COPD, on 3 L at baseline. Patient had reported 2 days of SOB. At home oxygen saturations were 50%. Upon arrival to [place] ED patient was noted to have a spontaneous L sided pneumothorax. Needle decompression done and chest tube placed prior to transfer. Patient was placed on high flow oxygen en route. Patient arrives A/O, reports pain to L side chest 02/25. * Moo Borrego - 04/15/2023 6:23 AM CDT Transfer to [facility] Information Transferring facility: [facility] EDMD taking transfer request: Link Other [facility] [place] MD / specialist notified: none Special needs / direction: chest tube Description of Illness / Injury: pt has hx of COPD and had been evaluated 2 consecutive days for increasing shortness of breath. Left sided tension pneumo Medications administered by transferring hospital: 1 liter NS, 2 gms mag, 2 mg morphine NKDA Other information: * René Dietrich MD - 04/15/2023 4:51 AM CDT Transfer to [facility] Information Transferring facility: [facility] EDMD taking transfer request: Karlo Lam [place] MD / specialist notified: None Special needs / direction: none Description of Illness / Injury: 53-year-old male with PMH COPD, presenting with spontaneous left pneumothorax and shortness of breath. Patient described as having significant shortness of breath on arrival and after x-ray showed sizable pneumothorax, needle thoracostomy performed with improvement.Provider there called their surgical physician on-call who stated she was an hour and a half away and due to this they felt patient would be best served by transfer here for chest tube placement. On asking, they noted patient was significantly improved with angiocath open to air on left, but they did not feel they had the capacity to place pigtail catheter at their facility as they are not well versed in this procedure. I did press that if they were concerned for initial tension pneumothorax that it may be unsafe to transport patient with only that small angiocatheter in place and they statedthey would see what sort of chest tube might be able to be placed prior to transport, however they felt that nonetheless a chest tube could not be managed on their hospital floor. Given above, patient felt to be best served by transfer here for care and accepted for transport. documented in this encounter Miscellaneous Notes * Med Reconciliation - Sushila Rhodes, Pharm D - 04/15/2023 8:32 AM CDT PHARMACY MEDICATION RECONCILIATION NOTE MEDICATION RECONCILIATION on admission by pharmacy has been completed. Prior to admission medications were reviewed with patient and [place] ED records. The MARKETING PRODUCTION COORDINATOR medication list has been updated and reflected in the chart below. Please use the MARKETING PRODUCTION COORDINATOR medication section for ordering home doses during admission. Medication related issues: 1. All medications added to MARKETING PRODUCTION COORDINATOR med list. 2. No recent fill records, patient states he pays espinal for inhalers, was able to verify correct medications that align with [place] ED list. PRIOR TO ADMISSION MEDICATION LIST: Prior to Admission Medications Prescriptions Last Dose Informant Patient Reported? Taking? albuterol HFA (PROVENTIL;VENTOLIN HFA) 90 mcg/actuation Inhl inhaler PRN Patient Yes Yes Sig: Inhale 2 puffs every 4 (four) hours as needed. aspirin 81 mg oral chewable tablet PRN Patient Yes Yes Sig: Chew 1 tablet (81 mg) once daily. jonnaceibpn-dzntfozkk-epqrpmnu 100-62.5-25 mcg Inhl DsDv 04/14/2023 Patient Yes Yes Sig: Inhale 1 Inhalation once daily. Facility-Administered Medications: None This patient obtains medications from [facility]. Thank you for the opportunity to participate in the care of this patient. Jeffrey Dueñas, Marketing Communications Coordinator Phone #:[phone] or [phone] Time spent reconciling meds:10 min Location: face to face encounter Addendum: I have reviewed and agree with the assessment made by the pharmacy assistant. Sushila Gallagher, Pharm D, BCCCP, BCPS documented in this encounter Plan of Treatment Scheduled Referrals Name Type Priority Associated Diagnoses Orde r Schedule Primary Care Follow Up Routine Ordered: 06/2023 CT Surg follow-up Follow Up Routine Ordered : 04/27/2023 documented as of this encounter Procedures Procedure Name Priority Date/Time Associated Diagnosis Comments ELECTROCARDIOGRAM STAT 04/27/2023 6:3 7 AM CDT XR CHEST AP PORT STAT 04/27/2023 6:36 AM CDT MAGNESIUM Timed Procedure 04/26/2023 10:56 AM CDT CREATININE EGFR Add On 04/26/2023 10:56 AM CDT POTASSIUM Add On 04/26/2023 10:56 AM CDT XR CHEST AP PORT Routine 04/26/2023 10:55 AM CDT MAGNESIUM Timed Procedure 04/25/2023 7:19 PM CDT XR CHEST AP PORT Timed Procedure 04/25/2023 2:08 PM CDT XR CHEST AP PORT Timed Procedure 04/25/2023 7:00 AM CDT BASIC METABOLIC PROF MAGNESIUM Routine 04/25/2023 4:39 AM CDT CBC/DIFF Routine 04/25/2023 4:39 AM CDT XR CHEST AP PORT Timed Procedure 04/24/2023 1:32 PM CDT MAGNESIUM Timed Procedure 04/24/2023 11:11 AM CDT POTASSIUM Routine 04/24/2023 11:11 AM CDT XR CHEST AP PORT Now 04/24/2023 7:34 AM CDT XR CHEST AP PORT Now 04/23/2023 4:56 PM CDT MAGNESIUM STAT 04/23/2023 4:16 PM CDT BLOOD CULTURE <5 YRS OLD OR SHORT DRAW Routine 04/23/2023 11:52 AM CDT XR CHEST AP PORT Routine 04/23/2023 8:42 AM CDT BASIC METABOLIC PROF MAGNESIUM Routine 04/23/2023 4:34 AM CDT CBC/DIFF Routine 04/23/2023 4:34 AM CDT MAGNESIUM Timed Procedure 04/22/2023 4:38 PM CDT XR CHEST AP PORT Timed Procedure 04/22/2023 7:45 AM CDT EXTRA TUBE-EDTA Routine 04/22/2023 4:44 AM CDT MAGNESIUM Routine 04/22/2023 4:44 AM CDT CREATININE EGFR Routine 04/22/2023 4:44 AM CDT POTASSIUM Routine 04/22/2023 4:[address] ABDOMEN & PELVIS W/O ORAL W IV CON STAT 04/22/2023 4:03 AM CDT MAGNESIUM Timed Procedure 04/21/2023 4:43 PM CDT XR CHEST AP PORT Timed Procedure 04/21/2023 6:12 AM CDT MAGNESIUM Routine 04/21/2023 5:13 AM CDT CREATININE EGFR Routine 04/21/2023 5:13 AM CDT POTASSIUM Routine 04/21/2023 5:13 AM CDT HEMOGLOBIN Routine 04/21/2023 5:13 AM CDT XR CHEST AP PORT Timed Procedure 04/20/2023 4:04 PM CDT BASIC METABOLIC PROF MAGNESIUM Routine 04/20/2023 11:55 AM CDT ABORH CONFIRM (LAB USE ONLY) Routine 04/20/2023 11:55 AM CDT PROTIME/INR Routine 04/20/2023 11:55 AM CDT CBC/DIFF Routine 04/20/2023 11:55 AM CDT XR CHEST AP PORT STAT 04/20/2023 10:44 AM CDT XR CHEST AP PORT STAT 04/20/2023 10:03 AM CDT CULT-ANAEROBE Routine 04/20/2023 8:43 AM CDT Air leak CULT-AEROBIC Routine 04/20/2023 8:43 AM CDT Air leak CULT-AEROBIC Routine 04/20/2023 8:43 AM CDT Air leak SURGERY OLYMPUS VIDEO/PICS Now 04/20/2023 7:05 AM CDT THORSC DX LUNGS/PERICAR/MED/PLEUR AL SPACE W/O BX 04/20/2023 6:57 AM CDT Air leak XR CHEST AP PORT Timed Procedure 04/19/2023 11:03 AM CDT XR CHEST AP PORT Routine 04/19/2023 7:33 AM CDT BASIC METABOLIC PROF MAGNESIUM Routine 04/18/2023 8:14 AM CDT TYPE AND SCREEN Routine 04/18/2023 8:14 AM CDT GASES VENOUS PERIPHERAL Routine 04/18/20 8:14 AM CDT CBC/DIFF Routine 04/18/2023 8:14 AM CDT XR CHEST AP PORT Timed Procedure 04/18/2023 8:09 AM CDT IR SPECIAL PROCEDURES Routine 04/17/2023 3:02 PM CDT Spontaneous pneumothorax PROTIME/INR STAT 04/17/2023 10:[address] CHEST/THORAX W/O CON Routine 04/17/20 8:53 AM CDT PROCALCITONIN STAT Add-on 04/17/2023 6:46 AM CDT HIGH-SENSITIVITY TROPONIN I (TNIH) STAT 04/17/2023 6:46 AM CDT ELECTROCARDIOGRAM STAT 04/17/2023 5:5 2 AM CDT XR CHEST AP PORT STAT 04/17/2023 5:52 AM CDT BASIC METAB PROFILE Routine 04/16/2023 6 :56 AM CDT CBC/DIFF Routine 04/16/2023 6:56 AM CDT XR CHEST AP PORT Routine 04/16/2023 6:50 AM CDT ELECTROCARDIOGRAM STAT 04/15/2023 7:3 8 AM CDT SARS-COV-2 BY RAPID PCR STAT 04/15/20 7:14 AM CDT XR CHEST AP PORT STAT 04/15/2023 7:01 AM CDT EXTRA TUBE-EDTA STAT 04/15/2023 6:55 AM CDT EXTRA TUBE-BLOOD BANK STAT 04/15/2023 6:55 AM CDT EXTRA TUBE-SST (LAB USE ONLY) STAT 04/15/2023 6:55 AM CDT LIVER PROFILE STAT 04/15/2023 6:55 AM CDT BASIC METAB PROFILE STAT 04/15/2023 6 :55 AM CDT PROTIME/INR STAT 04/15/2023 6:55 AM CDT CBC/DIFF STAT 04/15/2023 6:55 AM CDT EXTRA TUBE PST STAT 04/15/2023 6:55 AM CDT POCT LACTIC ACID STAT 04/15/2023 6:48 AM CDT POCT CREATININE Routine 04/15/2023 6:48 AM CDT POCT VBG/NA/K/GL STAT 04/15/2023 6:48 AM CDT POCT CALCIUM, IONIZED STAT 04/15/2023 6:48 AM CDT POCT CHLORIDE STAT 04/15/2023 6:48 AM CDT documented in this encounter Results * XR CHEST PA & LAT (05/15/2023 12:15 PM CDT) Anatomical Region Laterality Modality Chest Computed Radiogr aphy 05/15/2023 1:28 PM CDT Impressions 05/15/2023 1:30 PM CDT IMPRESSION: No significant residual left-sided pneumothorax. Decreased left pleural effusion and left basilar opacities. REPORT SIGNED BY SCARLETT MALDONADO M.D. Narrative 05/15/2023 1:30 PM CDT EXAM: XR CHEST PA & LAT DATE: 05/15/2023 12:13 PM CLINICAL DATA: CHEST TUBE REMOVAL. COMPARISON: 04/27/2023. FINDINGS: No significant left-sided pneumothorax. Decrease in left pleural effusion and left basilar opacities. No acute abnormality of the right lung. Heart size and mediastinal contours are normal. Hyperinflation with changes of emphysema. Procedure Note Scarlett Maldonado MD - 05/15/2023 EXAM: XR CHEST PA [...] and left basilar opacities. REPORT SIGNED BY SCARLETT MALDONADO M.D. Renée Sky FABRIC SOURCER, HELMET COVERER XRAY ORDERABLE * EKG (04/27/2023 6:37 AM CDT) Only the most recent of3 resultswithin the time period is included. EKG HVI ENMACARISSA Comment: ?[facility] ? Test Date: ?2023-04-27 Pat Name: ? CARL BINTA ?Department: ?? A4 ?Room: ? A481 Gender: ? M ?Floor Care Technician: ?? [id number] : ?1970 ? Requested By: CARL BOOKER MD Order Number: [id number] ?Reading MD: ?? Eugenio Live MD ? Measurements Intervals ?[place] ? Rate: ? 106 ?P: ?73 NE: ? 144 ?QRS: ?59 QRSD: ? 90 ? T: ?66 QT: ? 337 ? QTc: ?449 ? Interpretive Statements SINUS TACHYCARDIA ABNORMAL RHYTHM ECG Compared to ECG 04/17/2023 05:52:38 Sinus rhythm no longer present Electronically Signed On 04-30-2023 10:52:05 CDT by Eugenio Live MD 04/27/2023 6:37 AM CDT Carl Booker DO EKG ORDERABLE Performing Organization Address City/State/[place] Co de Phone Number [facility] [address] [facility] [place], [place] [id number] * XR CHEST AP PORT (04/27/2023 6:36 AM CDT) Only the most recent of19 resultswithin the time period is included. Anatomical Region Laterality Modality Chest Computed Radiogr aphy 04/27/2023 6:41 AM CDT Impressions 04/27/2023 6:42 AM CDT IMPRESSION: Portable AP chest. Two views. Small left apical pneumothorax, stable. No mediastinal shift. Left lateral chest wall soft tissue emphysema superiorly, marginally decreased. Small left basilar pleural effusion with associated atelectasis or other infiltrates, stable. Clear right lung and right pleural space. Normal heart size. Pulmonary vascularity is within normal limits. Osseous thorax is stable. REPORT SIGNED BY Tani Ritchie M.D. Narrative 04/27/2023 6:42 AM CDT EXAM: ??XR CHEST AP PORT ?? DATE: 04/27/2023 6:27 AM CLINICAL DATA: Shortness of Breath. ICD 10: J93.0 Spontaneous tension pneumothorax J44.1 Chronic obstructive pulmonary disease with (acute) exacerbation J93.83 Other pneumothorax COMPARISON: 04/26/2023 FINDINGS/ Procedure Note Tani Ritchie MD - 04/27/2023 EXAM: XR CHEST AP PORT DATE: 04/27/2023 6:27 AM CLINICAL DATA: Shortness of Breath. ICD 10: J93.0 Spontaneous tension pneumothorax J44.1 Chronic obstructivepulmonary disease with (acute) exacerbation J93.83 Other pneumothorax COMPARISON: 04/26/2023 FINDINGS/ IMPRESSION IMPRESSION: Portable AP chest. Two views. Small left apical pneumothorax, stable. No mediastinal shift. Left lateralchest wall soft tissue emphysema superiorly, marginally decreased. Small left basilar pleural effusion with associated atelectasis or otherinfiltrates, stable. Clear right lung and right pleural space. Normalheart size. Pulmonary vascularity is within normal limits. Osseous thoraxis stable. REPORT SIGNED BY Tani Ritchie M.D. Carl ORNELASAY ORDERABLE * (ABNORMAL) Creatinine / eGFR (04/26/2023 10:56 AM CDT) Only the most recent of3 resultswithin the time period is included. Creatinine 0.71(L) 0.73 - 1.18 mg/dL ATELLICA ANALYZER 04/26/2023 1:13 PM CDT [facility] Est GFR (CKD-EPI) >60.00 >60.00 mL/min/1. 73m2 ATELLICA ANALYZER 04/26/2023 1:13 PM CDT [facility] Comment:Calculation based on the Chronic Kidney Disease Epidemiology Collaboration (CKD-EPI) equation refit without adjustment for race. Blood 04/26/2023 10:5 6 AM CDT 04/26/2023 11:48 AM CDT Han Jacobo MD CHEMISTRY ORDERABLE [facility] [address] [place] [id number] * Potassium, Serum (04/26/2023 10:56 AM CDT) Only the most recent of4 resultswithin the time period is included. Potassium 4.6 3.4 - 5.1 mmol/L ATELLICA ANALYZER 04/26/2023 1:03 PM CDT [facility] Blood 04/26/2023 10:5 6 AM CDT 04/26/2023 11:48 AM CDT Han Jacobo MD CHEMISTRY ORDERABLE Performing Organization Address City/[facility]/ZIP Co de Phone Number [facility] [address] [facility] [place] [address] * Magnesium (04/26/2023 10:56 AM CDT) Only the most recent of8 resultswithin the time period is included. Magnesium 1.8 1.6 - 2.6 mg/dL ATELLICA ANALYZER 04/26/2023 12:14 PM CDT [facility] Blood 04/26/2023 10:5 6 AM CDT 04/26/2023 11:48 AM CDT Jesika Osborne RN CHEMISTRY ORDERABLE Performing Organization Address City/[facility]/ZIP Co de Phone Number [facility] [address] [place] [address] * (ABNORMAL) CBC / DIFF (04/25/2023 4:39 AM CDT) Only the most recent of6 resultswithin the time period is included. WBC 8.9 4.3 - 10.8 K/uL 04/25/2023 5:01 AM CDT [facility] RBC 3.65(L) 4.60 - 6.20 M/uL 04/25/2023 5:01 AM CDT [facility] Hemoglobin 10.4(L) 14.0 - 18.0 gm/dL 04/25/2023 5:01 AM T [facility] Hematocrit 32.6(L) 40.0 - 54.0 % 04/25/2023 5:01 AM [facility] MCV 89 80 - 100 fL 04/25/2023 5:01 AM [facility] MCH 29 27 - 33 pg 04/25/2023 5:01 AM [facility] MCHC 32(L) 33 - 36 gm/dL 04/25/2023 5:01 AM [facility] RDW 12.3 11.5 - 14.5 % 04/25/2023 5:01 AM [facility] Platelet Count 363 150 - 400 K/UL 04/25/2023 5:01 AM [facility] MPV 9.5 6.5 - 12 fL 04/25/2023 5:01 AM [facility] PMN % 60.7 % 04/25/2023 5:01 AM [facility] IG % 1.5(H) <=1.0 % 04/25/2023 5:01 AM [facility] Comment:Immature granulocyte s often indicate left shift when outside of normal limits. Lymphocyte % 13.5 % 04/25/2023 5:01 AM [facility] Monocyte % 13.1 % 04/25/2023 5:01 AM [facility] Eosinophil % 10.4 % 04/25/2023 5:01 AM [facility] Basophil % 0.8 % 04/25/2023 5:01 AM [facility] PMN Absolute 5.39 1.80 - 7.80 K/uL 04/25/2023 5:01 AM [facility] IG ABSOLUTE 0.13(H) 0.00 - 0.00 K/uL 04/25/2023 5:01 AM [facility] Lymphocyte Absolute 1.20 1.00 - 4.00 K/uL 04/25/2023 5:01 AM [facility] Monocyte Absolute 1.16(H) 0.00 - 1.00 K/uL 04/25/2023 5:01 AM [facility] Eosinophil Absolute 0.92(H) 0.00 - 0.45 K/uL 04/25/2023 5:01 AM [facility] Basophil Absolute 0.07 0.00 - 0.20 K/uL 04/25/2023 5:01 AM [facility] Nucl RBC % 0.0 0.0 - 0.0 /100 WBC 04/25/2023 5:01 AM [facility] Nucl RBC Absolute 0.00 0.00 - 0.00 K/uL 04/25/2023 5:01 AM [facility] Blood 04/25/2023 4:39 AM CDT 04/25/2023 4:55 AM CDT Ghazal Tan MD HEMATOLOGY ORDERABLE [facility] [address] [place], [place] [id number] * (ABNORMAL) Basic Metabolic Profile Magnesium (04/25/2023 4:39 AM CDT) Only the most recent of4 resultswithin the time period is included. Sodium 138 136 - 145 mmol/L ATELLICA ANALYZER 04/25/2023 5:23 AM [facility] Potassium 4.1 3.4 - 5.1 mmol/L ATELLICA ANALYZER 04/25/2023 5:23 AM [facility] Chloride 98 98 - 108 mmol/L ATELLICA ANALYZER 04/25/2023 5:23 AM [facility] Carbon Dioxide 36(H) 20 - 31 mmol/L ATELLICA ANALYZER 04/25/2023 5:23 AM [facility] BUN (Urea Nitro) 13 9 - 23 mg/dL ATELLICA ANALYZER 04/25/2023 5:23 AM [facility] Creatinine 0.72(L) 0.73 - 1.18 mg/dL ATELLICA ANALYZER 04/25/2023 5:23 AM [facility] Est GFR (CKD-EPI) >60.00 >60.00 mL/min/1. 73m2 ATELLICA ANALYZER 04/25/2023 5:23 AM [facility] Comment:Calculation based on the Chronic Kidney Disease Epidemiology Collaboration (CKD-EPI) equation refit without adjustment for race. Glucose 98 74 - 106 mg/dL ATELLICA ANALYZER 04/25/2023 5:23 AM CDT [facility] Calcium, Serum 9.0 8.7 - 10.4 mg/dL ATELLICA ANALYZER 04/25/2023 5:23 AM CDT [facility] Anion Gap 4.0 0.0 - 15.0 mmol/L ATELLICA ANALYZER 04/25/2023 5:23 AM CDT [facility] Magnesium 1.6 1.6 - 2.6 mg/dL ATELLICA ANALYZER 04/25/2023 5:23 AM CDT [facility] Blood 04/25/2023 4:39 AM CDT 04/25/2023 4:55 AM CDT Ghazal Tan MD CHEMISTRY ORDERABLE Performing Organization Address [facility]/[place] Co de Phone Number [facility] [address] [facility] [place] [address] * Blood Aerobic (1 Bottle) Culture (04/23/2023 11:52 AM CDT) Blood Culture (<5 Years Old/Short Draw) No growth 5 days. 04/28/2023 3:05 PM CDT [facility] Blood STRUCTURE OF RIGHT HAND / Unknown 04/23/2023 11:52 AM CDT 04/23/2023 11:52 AM CDT Ghazal Tan MD MICROBIOLOGY ORDERAB LE Performing Organization Address City/[facility]/ZIP Co de Phone Number [facility] [address] [place] [address] * Extra Tube-EDTA (Lab Use Only) (04/22/2023 4:44 AM CDT) Only the most recent of2 resultswithin the time period is included. Blood 04/22/2023 4:44 AM CDT 04/22/2023 5:38 AM CDT Stefany Agosto MD HEMATOLOGY ORDERABLE [facility] [address] [place] [address] * CT Abdomen & Pelvis w/o Oral w IV Contrast (04/22/2023 4:03 AM CDT) Anatomical Region Laterality Modality ABD/Pelvis Computed Tomogra phy 04/22/2023 4:05 AM CDT Impressions 04/22/2023 4:10 AM CDT IMPRESSION: ?? 1. ??Unremarkable bowel. 2. ??Partial imaging of left-sided pneumothorax, unchanged. ??New subcutaneous and seen in the left chest wall. 3. ??Small left pleural effusion and left lower lobe atelectasis, slightly increased. 4. ??Emphysematous changes in the lung bases, unchanged. 5. ??Cortical scarring left kidney. 6. ??Air within the bladder, likely from recent catheterization. REPORT SIGNED BY DR. GO Cannon 04/22/2023 4:10 AM CDT EXAM: ??CT ABDOMEN & PELVIS W/O ORAL W IV CON DATE: ??04/22/2023 3:19 AM CLINICAL DATA: ??J93.0 Spontaneous tension pneumothorax J44.1 Chronic obstructive pulmonary disease with (acute) exacerbation J93.83 Other pneumothorax ADDITIONAL CLINICAL DATA: ??Abdominal pain. ??Patient is not passing gas and has had no bowel movement for several days. ?? COMPARISON: ??Chest CT 04/17/2023. TECHNIQUE: Thin-section contiguous transaxial images were obtained through the abdomen and pelvis with intravenous contrast. ??Coronal and sagittal reformations were also obtained through the abdomen and pelvis. CONTRAST: IOHEXOL 350 MGI/ML ?Dose Given: 100 mL FINDINGS: ?? LUNG BASES: ??Partial imaging of a left-sided pneumothorax and subcutaneous emphysema. ??Subcutaneous emphysema is noted in the visualized pneumothorax is unchanged. ??Emphysematous changes in the visualized lung bases, unchanged. ??Partial imaging of the pericardial effusion, unchanged. ??Left pleural effusion and left lower lobe atelectasis, slightly increased. LIVER: ??Normal. GALLBLADDER: ??Normal. BILIARY TREE: ??Normal PANCREAS: ??Normal. SPLEEN: ??Normal. ADRENAL GLANDS: ??Normal. ?? KIDNEYS: ??Cortical scar in the left kidney. ??Kidneys are otherwise normal. BLADDER: ??Air within the bladder, likely from recent catheterization. LYMPH NODES: ??No lymphadenopathy. ?? FLUID: ??No free or loculated fluid collections. BOWEL: ??Unremarkable. ??The appendix is normal. AORTA: ??Atherosclerotic disease, but no aneurysm or evidence of active bleeding. BONES: ??No significant findings in the visualized bones. OTHER: Procedure Note Garrison Amaro MD - 04/22/2023 EXAM: CT ABDOMEN & PELVIS W/O ORAL W IV CON DATE: 04/22/2023 3:19 AM CLINICAL DATA: J93.0 Spontaneous tension pneumothorax J44.1 Chronicobstructive pulmonary disease with (acute) exacerbation J93.83 Otherpneumothorax ADDITIONAL CLINICAL DATA: Abdominal pain. Patient is not passing gas andhas had no bowel movement for several days. COMPARISON: Chest CT 04/17/2023. TECHNIQUE: Thin-section contiguous transaxial images were obtained throughthe abdomen and pelvis with intravenous contrast. Coronal and sagittalreformations were also obtained through the abdomen and pelvis. CONTRAST: IOHEXOL 350 MGI/ML Dose Given: 100 mL FINDINGS: LUNG BASES: Partial imaging of a left-sided pneumothorax and subcutaneousemphysema. Subcutaneous emphysema is noted in the visualized pneumothoraxis unchanged. Emphysematous changes in the visualized lung bases,unchanged. Partial imaging of the pericardial effusion, unchanged. Leftpleural effusion and left lower lobe atelectasis, slightly increased. LIVER: Normal. GALLBLADDER: Normal. BILIARY TREE: Normal PANCREAS: Normal. SPLEEN: Normal. ADRENAL GLANDS: Normal. KIDNEYS: Cortical scar in the left kidney. Kidneys are otherwisenormal. BLADDER: Air within the bladder, likely from recent catheterization. LYMPH NODES: No lymphadenopathy. FLUID: No free or loculated fluid collections. BOWEL: Unremarkable. The appendix is normal. AORTA: Atherosclerotic disease, but no aneurysm or evidence of activebleeding. BONES: No significant findings in the visualized bones. OTHER: IMPRESSION IMPRESSION: 1. Unremarkable bowel. 2. Partial imaging of left-sided pneumothorax, unchanged. Newsubcutaneous and seen in the left chest wall. 3. Small left pleural effusion and left lower lobe atelectasis, slightlyincreased. 4. Emphysematous changes in the lung bases, unchanged. 5. Cortical scarring left kidney. 6. Air within the bladder, likely from recent catheterization. REPORT SIGNED BY DR. GO AMARO Viraj Kumar MD CT ORDERABLE * (ABNORMAL) Hemoglobin (04/21/2023 5:13 AM CDT) [facility] Hemoglobin 13.8(L) 14.0 - 18.0 gm/dL 04/21/2023 5:43 AM CDT [facility] Blood 04/21/2023 5:13 AM CDT 04/21/2023 5:36 AM CDT Sravani HARO HEMATOLOGY ORDERABL E Performing Organization Address City/[facility]/[place] Co de Phone Number [facility] [address] [place] [phone] * ABORh Confirm (Lab Use Only) (04/20/2023 11:55 AM CDT) [facility] and Rh B Positive 04/20/2023 12:51 PM CDT [facility] Blood ARTERIAL LINE SUBMITTED SPECIMEN / Unknown 04/20/2023 11:55 AM CDT 04/20/2023 12:06 PM CDT Sravani GUTIERREZ BLOOD BANK ORDERABL E Performing Organization Address City/[facility]/ZIP Co de Phone Number [facility] [address] [place] [phone] [facility] [address] [place] [phone] * Protime/INR (04/20/2023 11:55 AM CDT) Only the most recent of3 resultswithin the time period is included. [facility] INR 1.0 0.9 - 1.2 04/20/2023 12:32 PM CDT [facility] Blood ARTERIAL LINE SUBMITTED SPECIMEN / Unknown 04/20/2023 11:55 AM CDT 04/20/2023 12:08 PM CDT Sravani HARO COAGULATION ORDERAB LE Performing Organization Address City/[facility]/ZIP Co de Phone Number [facility] [address] [place] [address] * Culture-Anaerobe (04/20/2023 8:43 AM CDT) CULT-ANAEROBE No anaerobic growth in 5 days. SCOTTY 04/25/2023 11:41 AM CDT [facility] Site-Microbiology PLEURAL FLUID SPECIMEN / Unknown 04/20/2023 8:43 AM CDT Comment:Pre-op diagnosis: Air leak [J93.82] August Tarango MD MICROBIOLOGY ORDERAB LE Performing Organization Address [facility]/[place] Co de Phone Number [facility] [address] [place] [address] * Culture-Aerobic (04/20/2023 8:43 AM CDT) Aerobic Culture No growth 48 hours. SCOTTY 04/22/2023 11:00 AM CDT [facility] Gram Stain Result No bacteria seen. 04/22/2023 11:00 AM CDT [facility] Gram Stain Result Many WBC's / LPF 04/22/2023 11:00 AM CDT [facility] Site-Microbiology PLEURAL FLUID SPECIMEN / Unknown 04/20/2023 8:43 AM CDT Comment:Pre-op diagnosis: Air leak [J93.82] August Tarango MD MICROBIOLOGY ORDERAB LE Performing Organization Address City/[facility]/ZIP Co de Phone Number [facility] [address] [place] [address] * Surgery Olympus Video/Pics (04/20/2023 7:05 AM CDT) [facility] OR VIDEO OLYMPUS HVI TINOALE 04/20/2023 7:05 AM CDT August Tarango MD PROCEDURE ORDERABLE Performing Organization Address [facility]/[place] Co de Phone Number [facility]OR[facility] [address] [place] [address] * Type & Screen (04/18/2023 8:14 AM CDT) Group and Rh B Positive 04/20/2023 11:24 AM CDT [facility] Antibody Screen Negative 04/20/2023 11:24 AM CDT [facility] Blood 04/18/2023 8:14 AM CDT 04/20/2023 10:49 AM CDT Sravani HARO BLOOD BANK ORDERABL E Performing Organization Address City/[facility]/[place] Co de Phone Number [facility] [address] [place] [address] [facility] [address] [facility] [place] [address] * (ABNORMAL) Gases Venous Peripheral (04/18/2023 8:14 AM CDT) pH Venous 7.37 7.30 - 7.40 04/18/2023 8:37 AM CDT [facility] O2 Sat Venous 79.4 60.0 - 80.0 % 04/18/2023 8:37 AM T [facility] pO2 Venous 43 35 - 45 mm Hg 04/18/2023 8:37 AM T [facility] Base Excess Venous 9.7(H) -3.0 - 2.0 mmol/L 04/18/2023 8:37 AM T [facility] PCO2 VENOUS 67(H) 36 - 51 mm Hg 04/18/2023 8:37 AM T [facility] HCO3 Venous 38(H) 22 - 29 mmol/L 04/18/2023 8:37 AM CDT [facility] Blood 04/18/2023 8:14 AM CDT 04/18/2023 8:27 AM CDT Sravani HARO CHEMISTRY ORDERABLE [facility] [address] [address] * IR SPECIAL PROCEDURES (04/17/2023 3:02 PM CDT) Anatomical Region Laterality Modality X-Ray Angiograph y 04/17/2023 5:27 PM CDT Impressions 04/17/2023 5:30 PM CDT IMPRESSION: Placement of 8 Montenegrin left apical chest tube as described above. Narrative 04/17/2023 5:30 PM CDT Chest tube placement. 8 Montenegrin left apical chest tube placement PROCEDURES: Left CHEST TUBE PLACEMENT USING FLUOROSCOPIC GUIDANCE. DESCRIPTION OF PROCEDURE: After informed consent was obtained the patient's left chest was prepped and draped in the usual sterile fashion. ??Using fluoroscopic guidance, after anesthetizing the skin using 1% buffered lidocaine, a Yueh needle was directed into the pleural space at the second intercostal space. ??Once air was obtained, a wire was advanced into the pleural space. A 10 Montenegrin tube was advanced over the wire and curled within the pleural space. ??The tube were secured to the skin and dressed. ??The patient tolerated the procedure well and there were no immediate complications. ??The patient was transferred to the floor in stable condition. Procedure Note Rohan Quintero MD - 04/17/2023 Chest tube placement. 8 Montenegrin left apical chest tube placement PROCEDURES: Left CHEST TUBE PLACEMENT USING FLUOROSCOPIC GUIDANCE. DESCRIPTION OF PROCEDURE: After informed consent was obtained thepatient's left chest was prepped and draped in the usual sterile fashion.Using fluoroscopic guidance, after anesthetizing the skin using 1%buffered lidocaine, a Yueh needle was directed into the pleural space atthe second intercostal space. Once air was obtained, a wire was advancedinto the pleural space. A 10 Montenegrin tube was advanced over the wire andcurled within the pleural space. The tube were secured to the skin anddressed. The patient tolerated the procedure well and there were noimmediate complications. The patient was transferred to the floor instable condition. IMPRESSION IMPRESSION: Placement of 8 Montenegrin left apical chest tube as describedabove. Dhaval Yao MD IR ORDERABLE * CT CHEST/THORAX W/O CON (04/17/2023 8:53 AM CDT) Anatomical Region Laterality Modality Chest Computed Tomogra phy 04/17/2023 9:00 AM CDT Impressions 04/17/2023 9:53 AM CDT IMPRESSION: Moderate-sized left pneumothorax unchanged compared to the recent chest radiograph. A small bore left pleural drainage catheter is identified in the pleural space interposed between the left lung and the left chest wall. There is no mediastinal shift. There is a small amount of pneumomediastinum. Atelectasis involving the majority of the left lower lobe. Pulmonary emphysema. REPORT SIGNED BY DR. Angus Haro Narrative 04/17/2023 9:53 AM CDT EXAM: CT CHEST (without contrast) ?? DATE: 04/17/2023 8:40 AM COMPARISON: Portable radiograph chest April 17, 2023 CLINICAL DATA: Left pneumothorax despite chest tube. Assess location of chest tube. ADDITIONAL CLINICAL DATA: J93.0 Spontaneous tension pneumothorax J44.1 Chronic obstructive pulmonary disease with (acute) exacerbation TECHNIQUE: A routine unenhanced CT scan of the thorax was performed. ??Specifically, thin-section contiguous transaxial images were obtained through the thorax. ??Coronal reformations were also obtained through the thorax. ??No intravenous contrast was given. FINDINGS: FINDINGS: Osseous Structures: ??Mild scoliosis. Mild degenerative changes. No fracture identified. Lungs: Pulmonary emphysema. Atelectasis involving the majority of the left lower lobe Mediastinum: No enlarged lymph nodes. Small amount pericardial fluid. Small amount of pneumomediastinum. Pleural spaces: No pleural effusions. Moderate sized left pneumothorax appears unchanged. A small bore left pleural drainage catheter is identified with the tip in the pleural space interposed between the lung and the chest wall Vascular structures: The thoracic aorta is normal in caliber. Procedure Note Angus Haro MD - 04/17/2023 EXAM: CT CHEST (without contrast) DATE: 04/17/2023 8:40 AM COMPARISON: Portable radiograph chest April 17, 2023 CLINICAL DATA: Left pneumothorax despite chest tube. Assess location ofchest tube. ADDITIONAL CLINICAL DATA: J93.0 Spontaneous tension pneumothorax J44.1Chronic obstructive pulmonary disease with (acute) exacerbation TECHNIQUE: A routine unenhanced CT scan of the thorax was performed.Specifically, thin-section contiguous transaxial images were obtainedthrough the thorax. Coronal reformations were also obtained through thethorax. No intravenous contrast was given. FINDINGS: FINDINGS: Osseous Structures: Mild scoliosis. Mild degenerative changes. Nofracture identified. Lungs: Pulmonary emphysema. Atelectasis involving the majority of the leftlower lobe Mediastinum: No enlarged lymph nodes. Small amount pericardial fluid.Small amount of pneumomediastinum. Pleural spaces: No pleural effusions. Moderate sized left pneumothoraxappears unchanged. A small bore left pleural drainage catheter isidentified with the tip in the pleural space interposed between the lungand the chest wall Vascular structures: The thoracic aorta is normal in caliber. IMPRESSION IMPRESSION: Moderate-sized left pneumothorax unchanged compared to the recent chestradiograph. A small bore left pleural drainage catheter is identified inthe pleural space interposed between the left lung and the left chestwall. There is no mediastinal shift. There is a small amount ofpneumomediastinum. Atelectasis involving the majority of the left lower lobe. Pulmonary emphysema. REPORT SIGNED BY DR. Angus Haro Alondra Ross MD CT ORDERABLE * (ABNORMAL) Procalcitonin (04/17/2023 6:46 AM CDT) Procalcitonin 0.29(H) <=0.05 ng/mL ATELLICA ANALYZER 04/17/2023 2:51 PM CDT [facility] Blood 04/17/2023 6:46 AM CDT 04/17/2023 7:06 AM CDT Narrative [facility] - 04/17/2023 2:51 PM CDT PROCALCITONIN REFERENCE RANGE <0.1 ng/mL: ?Bacterial infection very unlikely, ?antibiotics strongly discouraged. ? 0.1-0.25 ng/mL: ??Bacterial infection unlikely, ?antibiotics discouraged. ? 0.25-0.5 ng/mL: ??Local bacterial infection likely, antibiotics ?recommended. There is a low risk of progression to ?severe systemic infection (severe sepsis/septic shock). ? 0.5-2.0 ng/mL: ?? Bacterial infection is very likely and ?antibiotics are strongly recommended. Systemic infection is ?possible. There is a moderate risk for progression to ?severe systemic infection or sepsis. Repeat testing in ?6-24 hrs should be considered to evaluate further for sepsis. >2 ng/mL: ?? Systemic infection is likely. There is a high risk ?for progression to severe systemic infection or sepsis. ? >10 ng/mL: ??Level almost exclusive due to severe bacterial ?sepsis. High likelihood of severe sepsis or septic shock. ? Sravani GUTIERREZ CHEMISTRY ORDERABLE [facility] [address] [facility] [address] [place], [place] [id number] * High-Sensitivity Troponin I (TNIH) (04/17/2023 6:46 AM CDT) HIGH-SENSITIVI TY TROPONIN I 10 <=53 ng/L ATELLICA ANALYZER 04/17/2023 7:37 AM CDT [facility] Blood 04/17/2023 6:46 AM CDT 04/17/2023 7:06 AM CDT Pauline Rangel DO CHEMISTRY ORDERABLE [facility] [address] [address] * (ABNORMAL) Basic Metabolic Profile (04/16/2023 6:56 AM CDT) Only the most recent of2 resultswithin the time period is included. Sodium 139 136 - 145 mmol/L ATELLICA ANALYZER 04/16/2023 7:46 AM CDT [facility] Potassium 4.3 3.4 - 5.1 mmol/L ATELLICA ANALYZER 04/16/2023 7:46 AM [facility] Chloride 100 98 - 108 mmol/L ATELLICA ANALYZER 04/16/2023 7:46 AM [facility] Carbon Dioxide 36(H) 20 - 31 mmol/L ATELLICA ANALYZER 04/16/2023 7:46 AM [facility] BUN (Urea Nitro) 15 9 - 23 mg/dL ATELLICA ANALYZER 04/16/2023 7:46 AM [facility] Creatinine 0.90 0.60 - 1.10 mg/dL ATELLICA ANALYZER 04/16/2023 7:46 AM [facility] Est GFR (CKD-EPI) >60.00 >60.00 mL/min/1. 73m2 ATELLICA ANALYZER 04/16/2023 7:46 AM [facility] Comment:Calculation based on the Chronic Kidney Disease Epidemiology Collaboration (CKD-EPI) equation refit without adjustment for race. Glucose 112(H) 74 - 106 mg/dL ATELLICA ANALYZER 04/16/2023 7:46 AM [facility] Calcium, Serum 9.6 8.7 - 10.4 mg/dL ATELLICA ANALYZER 04/16/2023 7:46 AM [facility] Anion Gap 3.0 0.0 - 15.0 mmol/L ATELLICA ANALYZER 04/16/2023 7:46 AM [facility] Blood Line - Mixed Venous / Unknown 04/16/2023 6:56 AM CDT 04/16/2023 7:14 AM CDT Emilee Griggs MD CHEMISTRY ORDERA BLE Performing Organization Address [facility]/[place] Co de Phone Number [facility] [address] [place] [address] * COVID-19 (PUI) (04/15/2023 7:14 AM CDT) SARS-CoV-2 by PCR Negative for SARS-CoV-2 RNA by PCR Negative for SARS-CoV-2 RNA by PCR CEPHEID INFINITY ANALYZER 04/15/2023 7:47 AM CDT [facility] Nasopharynx 04/15/2023 7:14 AM CDT 04/15/2023 7:14 AM CDT Hailee Angulo MD MICROBIOLOGY ORDERAB LE Performing Organization Address [facility] de Phone Number [facility] [address] [place] [place] [address] * Extra Tube PST (Lab Use Only) (04/15/2023 6:55 AM CDT) Blood 04/15/2023 6:55 AM CDT 04/15/2023 7:00 AM CDT Hailee Angulo MD CHEMISTRY ORDERABLE Performing Organization Address [facility]/[place] Co de Phone Number [facility] [address] [place] [phone] * Extra Tube-SST (Lab Use Only) (04/15/2023 6:55 AM CDT) Blood 04/15/2023 6:55 AM CDT 04/15/2023 7:03 AM CDT Hailee Angulo MD CHEMISTRY ORDERABLE Performing Organization Address [facility]/[place] Co de Phone Number [facility] [address] [place] [address] * Extra Tube-Blood Bank (Lab Use Only) (04/15/2023 6:55 AM CDT) Blood 04/15/2023 6:55 AM CDT 04/15/2023 6:58 AM CDT Hailee Angulo MD BLOOD BANK ORDERABLE [facility] [address] [place] [address] * (ABNORMAL) LFTs (04/15/2023 6:55 AM CDT) ALT <9 7 - 40 U/L ATELLICA ANALYZER 04/15/2023 7:32 AM CDT [facility] Alkaline Phosphatase 85 46 - 116 U/L ATELLICA ANALYZER 04/15/2023 7:32 AM T [facility] AST (SGOT) 8(L) 13 - 40 U/L ATELLICA ANALYZER 04/15/2023 7:32 AM CDT [facility] Protein Total 6.6 5.7 - 8.2 g/dL ATELLICA ANALYZER 04/15/2023 7:32 AM CDT [facility] Albumin 3.7 3.4 - 5.0 g/dL ATELLICA ANALYZER 04/15/2023 7:32 AM CDT [facility] BILIRUBIN-DIRECT 0.11 <0.40 mg/dL ATELLICA ANALYZER 04/15/2023 7:32 AM CDT [facility] Bilirubin-Total 0.3 0.3 - 1.2 mg/dL ATELLICA ANALYZER 04/15/2023 7:32 AM CDT [facility] Blood 04/15/2023 6:55 AM CDT 04/15/2023 7:00 AM CDT Hailee Angulo MD CHEMISTRY ORDERABLE [facility] [address] [place] [address] * POCT Chloride (04/15/2023 6:48 AM CDT) POCT CHLORIDE 100 99 - 111 mmol/L 04/15/2023 6:51 AM CDT [facility] 04/15/2023 6:48 AM CDT 04/15/2023 6:51 AM CDT Hailee Angulo MD LAB POINT OF CARE TE ST RESULTS Performing Organization Address City/[facility]/ZIP Co de Phone Number [facility] [address] [place] [address] * POCT CREATININE (04/15/2023 6:48 AM CDT) POCT Creatinine 0.8 0.7 - 1.3 mg/dL 04/15/2023 6:51 AM CDT [facility] 04/15/2023 6:48 AM CDT 04/15/2023 6:51 AM CDT Hailee Angulo MD LAB POINT OF CARE TE ST RESULTS Performing Organization Address [facility]/[place] Co de Phone Number [facility] [address] [place] [address] * POCT Lac (04/15/2023 6:48 AM CDT) POCT LACTIC ACID 0.8 0.7 - 2.1 mmol/L 04/15/2023 6:51 AM CDT [facility] 04/15/2023 6:48 AM CDT 04/15/2023 6:51 AM CDT Hailee Angulo MD LAB POINT OF CARE TE ST RESULTS Performing Organization Address City/[facility]/[place] Co de Phone Number [facility] [address] [place] [address] * POCT Ca, Ionized (04/15/2023 6:48 AM CDT) POCT CA IONIZED 1.23 1.13 - 1.32 mmol/L 04/15/2023 6:51 AM T [facility] 04/15/2023 6:48 AM CDT 04/15/2023 6:51 AM CDT Hailee Angulo MD LAB POINT OF CARE TE ST RESULTS Performing Organization Address City/State/[place] Co de Phone Number [facility] [address] [place] [place] [address] * (ABNORMAL) POCT VBG/Na/K/Glu (04/15/2023 6:48 AM CDT) [facility] POCT pH Venous 7.25(L) 7.30 - 7.40 04/15/2023 6:51 AM [facility] POCT pCO2 Venous 86(HH) 36 - 51 mm Hg 04/15/2023 6:51 AM [facility] POCT pO2 Venous 23(L) 35 - 45 mm Hg 04/15/2023 6:51 AM T [facility] POCT HCO3 VENOUS 38(H) 22 - 29 mmol/L 04/15/2023 6:51 AM T [facility] POCT BASE EXCESS 6.6(H) -3.0 - 2.0 mmol/L 04/15/2023 6:51 AM [facility] POCT CSO2 27.8(L) 92.0 - 98.0 %SAT 04/15/2023 6:51 AM T [facility] POCT cTCO2 40.2 mmol/L 04/15/2023 6:51 AM T [facility] POCT SODIUM 141 133 - 144 mmol/L 04/15/2023 6:51 AM [facility] POCT POTASSIUM 4.7 3.5 - 5.0 mmol/L 04/15/2023 6:51 AM [facility] POCT Glucose 114(H) 60 - 100 mg/dL 04/15/2023 6:51 AM [facility] 04/15/2023 6:48 AM CDT 04/15/2023 6:51 AM CDT Hailee Angulo MD LAB POINT OF CARE TE ST RESULTS [facility] [address] [address] documented in this encounter Visit Diagnoses Diagnosis Spontaneous pneumothorax- Primary Other pneumothorax Spontaneous tension pneumothorax COPD exacerbation (HCC) Obstructive chronic bronchitis with exacerbation Spontaneous pneumothorax Other pneumothorax Air leak Other air leak Spontaneous tension pneumothorax documented in this encounter Admitting Diagnoses Diagnosis Spontaneous pneumothorax Other pneumothorax documented in this encounter Administered Medications Inactive Administered Medications - up to 3 most recent administrations Medication Order MAR Action Action Date Dose Rate Site saline FLUSH syringe 1-10 mL 1-10 mL, Intravenous, INTRA-PROCEDURE NEEDED, Starting on 04/22/23 at 0403, Until 04/22/23 at 1602, Line Care, per procedure Given 04/22/2023 4:03 AM CDT 20 mL saline FLUSH syringe 10 mL 10 mL, Intravenous, EVERY 8 HOURS, First dose on 04/15/23 at 1400, Until Discontinued Given 04/27/2023 9:00 PM CDT 10 mL Given 04/27/2023 3:20 PM CDT 10 mL Given 04/27/2023 5:06 AM CDT 10 mL saline FLUSH syringe 10 mL 10 mL, Intravenous, NEEDED, Starting on 04/15/23 at 1012, Until 04/28/23 at 1938, Line Care Given 04/26/2023 8:43 AM CDT 10 mL Given 04/25/2023 6:43 AM CDT 10 mL Given 04/25/2023 3:04 AM CDT 10 mL 0.9% buffered lidocaine 4 mL, Subcutaneous, INTRA-PROCEDURE ONE TIME DOSE NEEDED, 1 dose, Starting on 04/17/23 at 1503, Until 04/17/23 at 1503, per procedure Given 04/17/2023 3:03 PM CDT 4 mL Proce dural acetaminophen (TYLENOL) tablet 325-650 mg 325-650 mg (1-2 tablet), oral, EVERY 4 HOURS NEEDED, Starting on 04/15/23 at 1120, Until Angela 8/3/23 at 1113, fever, pain Given 04/19/2023 6:29 PM CDT 650 mg Given 04/19/2023 10:54 AM CDT 650 mg Given 04/19/2023 6:23 AM CDT 650 mg acetaminophen (TYLENOL) tablet 500-1,000 mg 500-1,000 mg (1-2 tablet), oral, EVERY 6 HOURS NEEDED, Starting on Mon04/21/23 at 2325, Until Mon04/28/23 at 1938, fever, pain Given 04/26/2023 4:57 PM CDT 1,000 mg Given 04/26/2023 8:01 AM CDT 1,000 mg Given 04/25/2023 1:18 PM CDT 500 mg albuterol-ipratropium (conc: 3-0.5mg/3mL) (DUO-NEB) nebulizer solution 3 mL 3 mL (1 ampule), Nebulization, ONCE, 1 dose, On Mon04/15/23 at 0715 Given by Provider (Comment) 04/15/2023 6:54 AM CDT 3 mL albuterol-ipratropium (conc: 3-0.5mg/3mL) (DUO-NEB) nebulizer solution 3 mL 3 mL (1 ampule), Nebulization, FOUR TIMES A DAY-RESPIRATORY, First dose on Mon04/15/23 at 1200, Until Discontinued Given 04/28/2023 11:10 AM CDT 3 mL Given 04/28/2023 7:24 AM CDT 3 mL Given 04/27/2023 8:00 PM CDT 3 mL Bacitracin Zinc-Polymyxin B (POLYSPORIN) ointment topical, ONCE, 1 dose, On Mon04/23/23 at 0845, Contains: 10,000 units/gm polymyxin B; 5 units/gm bacitracin Given by Provider (Comment) 04/23/2023 9:30 AM CDT Bacitracin Zinc-Polymyxin B (POLYSPORIN) ointment topical, ONCE, 1 dose, On Mon04/25/23 at 0900, Contains: 10,000 units/gm polymyxin B; 5 units/gm bacitracin Given 04/25/2023 9:00 AM CDT cefTRIAXone (Rocephin) 2 g in sodium chloride 0.9 % 100 mL IV piggyback 2 g, at 200 mL/hr, Intravenous, EVERY 24 HOURS (NS), 7 doses, First dose on Mon04/17/23 at 1030, Last dose on Mon04/23/23 at 1030 New Bag 04/23/2023 11:25 AM CDT 2 g 200 mL/hr New Bag 04/22/2023 11:29 AM CDT 2 g 200 mL/hr Restarted 04/21/2023 11:17 AM CDT 200 mL/hr FENTANYL (PF) 50 MCG/ML INJECTION SOLUTION 1 dose, Starting on 04/15/23 at 0643, Until 04/15/23 at 0644 fentaNYL (SUBLIMAZE) injection 12.5-50 mcg 12.5-50 mcg, Intravenous, INTRA-PROCEDURE NEEDED, Starting on Mon04/17/23 at 1012, Until Mon04/17/23 at 2211, for sedation and comfort if SBP greater than 90 mmHg and O2 saturation greater than 92% Given 04/17/2023 3:02 PM CDT 50 mcg Given 04/17/2023 2:59 PM CDT 50 mcg Given 04/17/2023 2:52 PM CDT 50 mcg fentaNYL (SUBLIMAZE) injection 25 mcg 25 mcg, Intravenous, ONCE, 1 dose, On 04/15/23 at 0715 Given 04/15/2023 6:44 AM CDT 25 mcg fentaNYL (SUBLIMAZE) injection 25-50 mcg 25-50 mcg, Intravenous, EVERY 5 MINUTES NEEDED, 8 doses, Starting on Angela 04/20/23 at 0910, Until Angela 04/20/23 at 1103, Phase 1, ACUTE SURGICAL PAIN Given 04/20/2023 10:52 AM CDT 25 mcg Given 04/20/2023 10:37 AM CDT 25 mcg Given 04/20/2023 10:27 AM CDT 25 mcg fluticasone 100 mcg-vilanterol 25 mcg (BREO) inhaler 1 Inhalation 1 Inhalation , Inhalation, DAILY, First dose on Mon04/17/23 at 1130, Until Discontinued Given 04/28/2023 8:27 AM CDT 1 Inhalation Given 04/27/2023 7:02 AM CDT 1 Inhalation Given 04/26/2023 8:02 AM CDT 1 Inhalation HYDROmorphone (DILAUDID) syringe 0.2-0.5 mg 0.2-0.5 mg, Intravenous, EVERY 1 HOUR NEEDED, Starting on Angela 04/20/23 at 1117, Until 04/26/23 at 1329, Pain, if oral opioid not effective or tolerated Given 04/26/2023 8:43 AM CDT 0.5 mg Given 04/25/2023 9:02 PM CDT 0.5 mg Given 04/25/2023 7:39 PM CDT 0.5 mg HYDROmorphone (DILAUDID) syringe 0.5 mg 0.5 mg, Intravenous, EVERY 15 MINUTES NEEDED, 3 doses, Starting on 04/15/23 at 0742, Until 04/15/23 at 0957, Pain, when NOT taking PO Given 04/15/2023 9:57 AM CDT 0.5 mg Given 04/15/2023 9:24 AM CDT 0.5 mg Given 04/15/2023 7:50 AM CDT 0.5 mg iohexol 350 mgI/mL (OMNIPAQUE) 1-150 mL 1-150 mL, Intravenous, INTRA-PROCEDURE ONE TIME DOSE NEEDED, 1 dose, Starting on 04/22/23 at 0403, Until 04/22/23 at 0403, per procedure Given 04/22/2023 4:03 AM CDT 100 mL IPRATROPIUM 0.5 MG-ALBUTEROL 3 MG (2.5 MG BASE)/3 ML NEBULIZATION SOLN 1 dose, Starting on 04/15/23 at 0649, Until 04/15/23 at 0654 ketorolac (ToradoL) injection 15 mg 15 mg, Intravenous, EVERY 8 HOURS NEEDED, Starting on 04/22/23 at 0903, Until Angela 04/27/23 at 0902, pain, Maximum duration of treatment is 5 days. Given 04/26/2023 12:31 PM CDT 15 mg Given 04/24/2023 1:01 AM CDT 15 mg Given 04/23/2023 6:07 PM CDT 15 mg lactated Ringers (LR) IV infusion at 100 mL/hr, Intravenous, CONTINUOUS, Starting on Angela 04/20/23 at 1115, Until 04/24/23 at 1316 Auto Rate Verify 04/24/2023 10:26 AM CDT 100 mL/hr New Bag 04/24/2023 8:18 AM CDT 100 mL/hr Restarted 04/24/2023 8:04 AM CDT 100 mL/hr lidocaine 1% injection (conc: 10 mg/mL) 0.1-0.3 mL 0.1-0.3 mL, Intradermal, NEEDED, Starting on Mon04/15/23 at 1012, Until Mon04/28/23 at 1938, Local Anesthesia, IV start or restart Given 04/21/2023 6:48 PM CDT 0.1 mL Left Arm lidocaine 4% (Salonpas) adhesive patch, medicated 1 patch 1 patch, Transdermal, DAILY, First dose on Mon04/21/23 at 1045, Until Discontinued Patch Applied 04/28/2023 8:27 AM CDT 1 patch Left Upper Chest Patch Applied 04/27/2023 7:59 AM CDT 1 patch Left Upper Chest Patch Applied 04/26/2023 8:01 AM CDT 1 patch Other (Comment) magnesium sulfate 2 gram / 50mL (4%) IV piggyback (PREMIX) 2 g 2 g, Intravenous, EVERY 2 HOURS (NS), 2 doses, First dose on Angela 04/20/23 at 1430, Last dose on Mon04/20/23 at 1630, Administer over 2 Hours, 1 g magnesium replacement should be given over 1 hour (may give 2 g over 1 hour in ICU/ED setting). 4 grams should NOT be used for magnesium replacement. Auto Rate Verify 04/20/2023 6:16 PM CDT 25 mL/hr Auto Rate Verify 04/20/2023 4:35 PM CDT 25 mL/h r New Bag 04/20/2023 4:20 PM CDT 2 g 25 mL/hr magnesium sulfate 2 gram / 50mL (4%) IV piggyback (PREMIX) 2 g 2 g, Intravenous, ONCE, 1 dose, On Mon04/21/23 at 0800, Administer over 2 Hours, 1 g magnesium replacement should be given over 1 hour (may give 2 g over 1 hour in ICU/ED setting). 4 grams should NOT be used for magnesium replacement. Restarted 04/21/2023 9:57 AM CDT 25 mL/hr New Bag 04/21/2023 8:31 AM CDT 2 g 25 mL/hr magnesium sulfate 2 gram / 50mL (4%) IV piggyback (PREMIX) 2 g 2 g, Intravenous, EVERY 2 HOURS (NS), 2 doses, First dose on 04/22/23 at 0600, Last dose on 04/22/23 at 0800, Administer over 2 Hours, 1 g magnesium replacement should be given over 1 hour (may give 2 g over 1 hour in ICU/ED setting). 4 grams should NOT be used for magnesium replacement. Rate Change 04/22/2023 10:34 AM CDT 10 mL/hr Restarted 04/22/2023 10:04 AM CDT 25 mL/hr Auto Rate Verify 04/22/2023 9:19 AM CDT 25 mL/h r magnesium sulfate 2 gram / 50mL (4%) IV piggyback (PREMIX) 2 g 2 g, Intravenous, EVERY 2 HOURS (NS), 2 doses, First dose on Mon04/23/23 at 2315, Last dose on Mon04/24/23 at 0115, Administer over 2 Hours, 1 g magnesium replacement should be given over 1 hour (may give 2 g over 1 hour in ICU/ED setting). 4 grams should NOT be used for magnesium replacement. New Bag 04/24/2023 2:07 AM CDT 2 g 25 m L/hr New Bag 04/24/2023 12:05 AM CDT 2 g 25 mL/hr magnesium sulfate 2 gram / 50mL (4%) IV piggyback (PREMIX) 2 g 2 g, Intravenous, EVERY 2 HOURS (NS), 2 doses, First dose on Mon04/25/23 at 0800, Last dose on Mon04/25/23 at 1000, Administer over 2 Hours, 1 g magnesium replacement should be given over 1 hour (may give 2 g over 1 hour in ICU/ED setting). 4 grams should NOT be used for magnesium replacement. Rate Change 04/25/2023 11:38 AM CDT 10 mL/hr New Bag 04/25/2023 9:38 AM CDT 2 g 25 mL/hr New Bag 04/25/2023 8:16 AM CDT 2 g 25 mL/hr magnesium sulfate 2 gram / 50mL (4%) IV piggyback (PREMIX) 2 g 2 g, Intravenous, ONCE, 1 dose, On Mon04/25/23 at 2115, Administer over 2 Hours, 1 g magnesium replacement should be given over 1 hour (may give 2 g over 1 hour in ICU/ED setting). 4 grams should NOT be used for magnesium replacement. New Bag 04/25/2023 10:22 PM CDT 2 g 25 mL/h r melatonin tablet 3 mg 3 mg, oral, AT BEDTIME, First dose on Mon04/16/23 at 0300, Until Discontinued Given 04/27/2023 9:00 PM CDT 3 mg Given 04/26/2023 9:16 PM CDT 3 mg Given 04/25/2023 10:19 PM CDT 3 mg methocarbamoL (ROBAXIN) tablet 500 mg 500 mg, oral, FOUR TIMES A DAY, First dose on Mon04/15/23 at 1200, Until Discontinued Given 04/22/2023 11:36 AM C DT 500 mg Given 04/22/2023 7:51 AM CDT 500 mg Given 04/21/2023 9:48 PM CDT 500 mg methocarbamoL (ROBAXIN) tablet 750 mg 750 mg, oral, FOUR TIMES A DAY, First dose (after last modification) on 04/22/23 at 1800, Until Discontinued Given 04/28/2023 12:29 PM CDT 750 mg Given 04/28/2023 8:27 AM CDT 750 mg Given 04/27/2023 9:00 PM CDT 750 mg METHYLPREDNISOLONE SOD SUCC (PF) 125 MG/2 ML SOLUTION FOR INJECTION 1 dose, Starting on Mon04/15/23 at 0653, Until Mon04/15/23 at 0655 Given 04/15/2023 6:55 AM CDT midazolam (VERSED) injection 0.5-2 mg 0.5-2 mg, Intravenous, INTRA-PROCEDURE NEEDED, Starting on Mon04/17/23 at 1012, Until Mon04/17/23 at 2211, for anxiety if SBP greater than 90 mmHg and O2 saturation greater than 92% Given 04/17/2023 2 :59 PM CDT 1 mg Given 04/17/2023 2:52 PM CDT 1 mg MORphine injection (conc: 2 mg/mL) 1-2 mg 1-2 mg, Intravenous, EVERY 3 HOURS NEEDED, Starting on Mon04/17/23 at 0542, Until Angela 04/20/23 at 1129, chest pain Given 04/17/2023 10:15 PM CDT 2 mg Given 04/17/2023 3:47 PM CDT 2 mg Given 04/17/2023 9:09 AM CDT 2 mg MORphine injection (conc: 2 mg/mL) 1-2 mg 1-2 mg, Intravenous, EVERY 4 HOURS NEEDED, Starting on Angela 04/27/23 at 0645, Until Mon04/28/23 at 1938, chest pain Given 04/27/2023 6:50 AM CDT 2 mg ondansetron (ZOFRAN) disintegrating tablet 4-8 mg 4-8 mg, oral, EVERY 8 HOURS NEEDED, Starting on 04/15/23 at 1012, Until Mon04/28/23 at 1938, nausea & vomiting ondansetron (ZOFRAN) injection 4-8 mg 4-8 mg, Intravenous, EVERY 8 HOURS NEEDED, Starting on 04/15/23 at 1012, Until Mon04/28/23 at 1938, nausea & vomiting Given 04/22/2023 2:28 AM CDT 4 mg Given 04/21/2023 6:52 PM CDT 8 mg oxyCODONE (immediate release) (ROXICODONE) tablet 5 mg 5 mg, oral, EVERY 6 HOURS NEEDED, Starting on 04/15/23 at 1121, Until Mon04/20/23 at 1749, Breakthrough pain, when taking PO, if robaxin and acetaminophen not effective Given 04/20/2023 12:49 PM CDT 5 m g Given 04/20/2023 5:14 AM CDT 5 mg Given 04/19/2023 8:26 PM CDT 5 mg oxyCODONE (immediate release) (ROXICODONE) tablet 5-10 mg 5-10 mg, oral, EVERY 6 HOURS NEEDED, Starting on Angela 04/20/23 at 1749, Until Mon04/28/23 at 1938, Breakthrough pain, when taking PO, if robaxin and acetaminophen not effective Given 04/26/2023 7:32 PM CDT 10 mg Given 04/26/2023 8:00 AM CDT 10 mg Given 04/26/2023 2:30 AM CDT 10 mg pantoprazole (PROTONIX) delayed release tablet 40 mg 40 mg, oral, DAILY, First dose on Mon04/26/23 at 0800, Until Discontinued Given 04/28/2023 8:27 AM CDT 40 mg Given 04/27/2023 7:51 AM CDT 40 mg Given 04/26/2023 8:01 AM CDT 40 mg pantoprazole (PROTONIX) IV injection (conc 4 mg/mL) 40 mg 40 mg, IV Push, DAILY, First dose on Mon04/23/23 at 1200, Until Discontinued Given 04/25/2023 8:07 AM CDT 40 mg Given 04/24/2023 8:15 AM CDT 40 mg Given 04/23/2023 12:55 PM CDT 40 mg polyethylene glycol (MIRALAX) packet 17 g 17 g, oral, DAILY NEEDED, Starting on Mon04/22/23 at 0425, Until Mon04/28/23 at 1938, constipation Given 04/22/2023 4:34 AM CDT 17 g predniSONE (DELTASONE) tablet 40 mg 40 mg, oral, DAILY, 5 doses, First dose on Mon04/27/23 at 1000, Last dose on Mon05/01/23 at 0800 Given 04/28/2023 8:27 AM CDT 40 mg Given 04/27/2023 10:20 AM CDT 40 mg senna-docusate (SENNA-S) tablet 1-2 tablet 1-2 tablet, oral, TWICE A DAY NEEDED, Starting on Mon04/19/23 at 1021, Until Mon04/22/23 at 1206, constipation Given 04/22/2023 4:35 AM CDT 2 tablets Given 04/21/2023 2:58 PM CDT 2 tablets senna-docusate (SENNA-S) tablet 2 tablet 2 tablet, oral, TWICE A DAY, First dose (after last modification) on Mon04/22/23 at 2000, Until Discontinued Given 04/27/2023 7:51 AM CDT 2 tablets Given 04/26/2023 7:28 PM CDT 2 tablets Given 04/26/2023 8:01 AM CDT 2 tablets simethicone (MYLICON) chewable tablet 80 mg 80 mg, oral, THREE TIMES A DAY AFTER MEALS AND AT BEDTIME, First dose on Mon04/22/23 at 1230, Until Discontinued Given 04/28/2023 12:29 PM CDT 80 mg Given 04/28/2023 8:27 AM CDT 80 mg Given 04/27/2023 9:00 PM CDT 80 mg documented in this encounter Active and Recently Administered Medications Times are shown in CDT. Scheduled Medication Order 04/26/2023 04/27/2023 04/28/2023 saline FLUSH syringe 10 mL 10 mL, Intravenous, EVERY 8 HOURS, First dose on 04/15/23 at 1400, Until Discontinued 0541 (Given - Provider: Goran Schwartz, RN)1230 (Given - Provider: April Freitas, RN)2115 (Given - Provider: Verito Pereira, RN) 0506 (Given - Provider: Sarah Terry, RN)1520 (Given - Provider: Verito Pereira, RN)2100 (Given - Provider: Verito Pereira, RN) 0600 (Declined - Provider: Verito Pereira, ALESSANDRA) albuterol-ipratropium (conc: 3-0.5mg/3mL) (DUO-NEB) nebulizer solution 3 mL 3 mL (1 ampule), Nebulization, FOUR TIMES A DAY-RESPIRATORY, First dose on 04/15/23 at 1200, Until Discontinued 0724 (Given - Provider: Darren Humphries, RT)1112 (Given - Provider: Darren Humphries, RT)1600 (Not Given - Provider: Darren Humphries RT - Reason: Patient sleeping)1911 (Given - Provider: Mary Andrew, RT) 0716 (Given - Provider: Linh Chowdary, RT)1139 (Given - Provider: Linh Chowdary, RT)1529 (Given - Provider: Linh Chowdary RT)2000 (Given - Provider: Kelsie Esparza, RT) 0724 (Given - Provider: Kiki Estrada, RT)1110 (Given - Provider: Tesha Wei) fluticasone 100 mcg-vilanterol 25 mcg (BREO) inhaler 1 Inhalation 1 Inhalation , Inhalation, DAILY, First dose on 04/17/23 at 1130, Until Discontinued 08 (Given - Provider: April Freitas RN) 07 (Given - Provider: Sarah Terry RN) 08 (Given - Provider: Tani Castañeda, RN) lidocaine 4% (Salonpas) adhesive patch, medicated 1 patch 1 patch, Transdermal, DAILY, First dose on Mon04/21/23 at 1045, Until Discontinued 08 (Patch Applied - Provider: April Freitas RN - Comment: LL chest)2000 (Patch Removed - Provider: Verito Pereira RN) 758 (Patch Applied - Provider: Tani Castañeda, ALESSANDRA)1809 (Patch Removed - Provider: Verito Pereira RN) 826 (Patch Applied - Provider: Tani Castañeda, ALESSANDRA)2026 (Due: Patch Removed - Provider: Tani Castañeda RN) melatonin tablet 3 mg 3 mg, oral, AT BEDTIME, First dose on Mon04/16/23 at 0300, Until Discontinued 2115 (Given - Provider: Verito Pereira RN) 2099 (Given - Provider: Verito Pereira RN) methocarbamoL (ROBAXIN) tablet 750 mg 750 mg, oral, FOUR TIMES A DAY, First dose (after last modification) on Mon04/22/23 at 1800, Until Discontinued 08 (Given - Provider: April Freitas RN)123 (Given - Provider: April Freitas RN)1700 (Given - Provider: Verito Pereira RN)211 (Given - Provider: Verito Pereira RN) 075 (Given - Provider: Tani Castañeda RN)115 (Given - Provider: Tani Castañeda, ALESSANDRA)172 (Given - Provider: Verito Pereira RN)2099 (Given - Provider: Verito Pereira RN) 826 (Given - Provider: Tani Castañeda, ALESSANDRA)122 (Given - Provider: Tani Castañeda, ALESSANDRA) pantoprazole (PROTONIX) delayed release tablet 40 mg 40 mg, oral, DAILY, First dose on Mon04/26/23 at 0800, Until Discontinued 08 (Given - Provider: April M. Fortino, RN) 0751 (Given - Provider: Tani Castañeda RN) 0827 (Given - Provider: Tani Castañeda, RN) predniSONE (DELTASONE) tablet 40 mg 40 mg, oral, DAILY, 5 doses, First dose on Angela 04/27/23 at 1000, Last dose on 05/01/23 at 0800 1020 (Given - Provider: Tani Castañeda RN) 0827 (Given - Provider: Tani Castañeda, RN) senna-docusate (SENNA-S) tablet 2 tablet 2 tablet, oral, TWICE A DAY, First dose (after last modification) on 04/22/23 at 2000, Until Discontinued 0801 (Given - Provider: April Freitas RN)1928 (Given - Provider: Verito Pereira RN) 0751 (Given - Provider: Tani Castañeda RN)1999 (Declined - Provider: Verito Pereira RN - Comment: Loose stools) 0800 (Declined - Provider: Tani Castañeda, ALESSANDRA) simethicone (MYLICON) chewable tablet 80 mg 80 mg, oral, THREE TIMES A DAY AFTER MEALS AND AT BEDTIME, First dose on 04/22/23 at 1230, Until Discontinued 0800 (Given - Provider: April Freitas RN)1232 (Given - Provider: April Freitas RN)1657 (Given - Provider: Verito Pereira, RN)2115 (Given - Provider: Verito Pereira, RN) 0751 (Given - Provider: Tani Castañeda RN)1151 (Given - Provider: Tani Castañeda, ALESSANDRA)1722 (Given - Provider: Verito Pereira, RN)2100 (Given - Provider: Verito Pereira, RN) 0827 (Given - Provider: Tani Castañeda, RN)1229 (Given - Provider: Tani Castañeda, RN) PRN Medication Order 04/26/2023 04/27/2023 04/28/2023 saline FLUSH syringe 10 mL 10 mL, Intravenous, NEEDED, Starting on 04/15/23 at 1012, Until 04/28/23 at 1938, Line Care 0843 (Given - Provider: April Freitas RN) acetaminophen (TYLENOL) tablet 500-1,000 mg 500-1,000 mg (1-2 tablet), oral, EVERY 6 HOURS NEEDED, Starting on Mon04/21/23 at 2325, Until Mon04/28/23 at 1938, fever, pain 0801 (Given - Provider: April Freitas RN)1657 (Given - Provider: Verito Pereira RN) HYDROmorphone (DILAUDID) syringe 0.2-0.5 mg (CANCELED) 0.2-0.5 mg, Intravenous, EVERY 1 HOUR NEEDED, Starting on Angela 04/20/23 at 1117, Until 04/26/23 at 1329, Pain, if oral opioid not effective or tolerated 0843 (Given - Provider: April Freitas RN) ketorolac (ToradoL) injection 15 mg () 15 mg, Intravenous, EVERY 8 HOURS NEEDED, Starting on 04/22/23 at 0903, Until Mon04/27/23 at 0902, pain, Maximum duration of treatment is 5 days. 1231 (Given - Provider: April Freitas RN) lidocaine (LMX-4) topical cream 1 Application topical, NEEDED, Starting on 04/15/23 at 1012, Until Mon04/28/23 at 1938, IV start or restart if patient prefers a needleless local anesthetic. lidocaine / sod bicarb (buffered lidocaine) syringe for IV starts 0.1-0.3 mL 0.1-0.3 mL, Intradermal, NEEDED, Starting on 04/15/23 at 1012, Until Mon04/28/23 at 1938, IV line placement, IV start or restart lidocaine 1% injection (conc: 10 mg/mL) 0.1-0.3 mL 0.1-0.3 mL, Intradermal, NEEDED, Starting on 04/15/23 at 1012, Until Mon04/28/23 at 1938, Local Anesthesia, IV start or restart MORphine injection (conc: 2 mg/mL) 1-2 mg 1-2 mg, Intravenous, EVERY 4 HOURS NEEDED, Starting on Angela 04/27/23 at 0645, Until Mon04/28/23 at 1938, chest pain 0650 (Given - Provider: Sarah Terry, ALESSANDRA) ondansetron (ZOFRAN) disintegrating tablet 4-8 mg(Linked Group 1) 4-8 mg, oral, EVERY 8 HOURS NEEDED, Starting on 04/15/23 at 1012, Until Mon04/28/23 at 1938, nausea & vomiting ondansetron (ZOFRAN) injection 4-8 mg(Linked Group 1) 4-8 mg, Intravenous, EVERY 8 HOURS NEEDED, Starting on 04/15/23 at 1012, Until Mon04/28/23 at 1938, nausea & vomiting oxyCODONE (immediate release) (ROXICODONE) tablet 5-10 mg 5-10 mg, oral, EVERY 6 HOURS NEEDED, Starting on Angela 04/20/23 at 1749, Until Mon04/28/23 at 1938, Breakthrough pain, when taking PO, if robaxin and acetaminophen not effective 0230 (Given - Provider: Goran Schwartz, ALESSANDRA)0800 (Given - Provider: April Freitas, ALESSANDRA)1932 (Given - Provider: Verito Pereira, ALESSANDRA) polyethylene glycol (MIRALAX) packet 17 g 17 g, oral, DAILY NEEDED, Starting on 04/22/23 at 0425, Until Mon04/28/23 at 1938, constipation Linked Groups Order Group 1: ondansetron (ZOFRAN) injection 4-8 mgJump to med 4-8 mg, Intravenous, EVERY 8 HOURS NEEDED, Starting on 04/15/23 at 1012, Until Mon04/28/23 at 1938, nausea & vomiting Or ondansetron (ZOFRAN) disintegrating tablet 4-8 mgJump to med 4-8 mg, oral, EVERY 8 HOURS NEEDED, Starting on 04/15/23 at 1012, Until Mon04/28/23 at 1938, nausea & vomiting documented in this encounter Additional Health Concerns Infection Onset Date Last Indicated Resolved Time COVID-19 Rule-Out 04/15/2023 04/15/2023 04/15/2023 7:47 AM CDT documented as of this encounter Care Teams Manager Supplier Relationship Specialty Start Date End Date None, PCP - General 04/15/23 04/16/23 Clinic, No Primary PCP - [facility] 04/15/23 Rohan Saldaña MD [address] [place] [address] PCP - General 04/17/23 documented as of this encounter
[2023-09-28 10:34] LABS: Creatinine, Point-of-Care* 0.9 mg/dl (0.6-1.3)
--- OUTSIDE RECORDS SUMMARY | 2023-09-28 10:34 | XMS_ITS | Encounter Summary ---
Author Name Unknown Organization [facility] Address [address] [place] [id number] Care Team Providers Care Inspector Tool Name Role Phone Md Ariadna Primary Care Provider Unavailabl e Clinic, No Primary Unavailable Unavailable Encounter Details Date Type Department Care Team (Latest Contact Info) Description 04/15/2023 Travel Social History Tobacco Use Types Packs/Day [...] Diagnoses Not on filedocumented in this encounter Additional Health Concerns Infection Onset Date Last Indicated Resolved Time COVID-19 Rule-Out 04/15/2023 04/15/2023 04/15/2023 7:47 AM CDT documented as of this encounter Care Teams Inspector Tool Relationship Specialty Start Date End Date Md Ariadna PCP - General 04/15/23 04/16/23 Clinic, No Primary PCP - Primary Care Clinic 04/15/23 documented as of this encounter
--- OUTSIDE RECORDS SUMMARY | 2023-09-28 10:34 | XMS_ITS | Encounter Summary ---
Author Name Unknown Organization [facility] Address [address] [place] [id number] Care Team Providers Care Seedling Sorter Name Role Phone Clinic, No Primary Unavailable Unavailable Rohan Saldaña MD Primary Care Provider [phone] Reason for Visit * Reason Comments Pneumothorax * Inpatient Admission (Routine) Specialty Diagnoses / Procedures Referred By Asia t Referred To Contact Diagnoses Spontaneous pneumothorax Referral ID Status Reason Start Date Expiration Date Visits Re quested Visits Authorized [id number] 1 1 Encounter Details Date Type Department Care Team (Late st Contact Info) Description 04/20/2023 7:00 AM CDT - 04/20/2023 9:15 AM CDT Surgery [facility] Operating Room [address] [place] [address] [place] [address] [place] [address] [address] [place] [address] VIDEO ASSISTED THORACOSCOPY, Left Talc pleurodysis Surgery Details Date/Time Status Location OR Service Patient Class Case Class Case Type Trauma Case? 04/20/23 7:00 AM Posted [facility] ORS 04 Cardiothoracic Inpatient Panel 1 Procedure LRB Anes Op Region Wound Class Comments VIDEO ASSISTED THORACOSCOPY, Left Talc pleurodysis Left General Chest Clean Contaminated (II) Surgeon Surgeon Role Service Panel August Tarango MD Primary Cardiothoracic 1 documented in this encounter Social History Tobacco Use Types Packs/Day Years [...] Sign Reading Time Taken Comments Blood Pressure 145/102 04/20/2023 6:53 AM CDT Pulse 110 04/20/2023 6:53 AM CDT Temperature 36.7 ??C (98.1 ??F) 04/20/2023 6:53 AM CD T Respiratory Rate 22 04/20/2023 6:53 AM CDT Oxygen Saturation 96% 04/20/2023 6:53 AM CDT Inhaled Oxygen Concentration - - Weight 73 kg (160 lb 15 oz) 04/15/2023 6:59 PM C DT Height 182.9 cm (6') 04/15/2023 6:59 PM CDT Body Mass Index 23.46 04/21/2023 3:35 PM CDT documented in this encounter Discharge Summaries * Han Jacobo MD - 04/28/2023 10:21 AM CDT Discharge Summary Patient Name: Carl Judd Date of : 1970 Admitting Provider: Emilee Griggs MD Discharge Provider: Han Jacobo MD Primary Care Physician at Discharge: Rohan Saldaña MD [phone] Admission Date: 04/15/2023 Discharge Date: 04/28/2023 Operative Procedures Performed: VATS, pleurodesis Discharge Disposition: Fpc/SNF Presenting Problem/History of Present Illness HPI: 53 year old man with end stage COPD on 3L home O2, has been referred to [facility] for lung transplant eval but declined due to finances and ongoing occasional smoking. Admitted 7/29 for tension pneumothorax, persistent air leak despite [...] order oxygen on DC (was on 3L COOKER TENDER) Presumed pneumonia: completed 7 days of ceftriaxone on 04/23 End-stage COPD, with acute exacerbation: on 3 liters of home oxygen Transplant offered at [facility], patient declined due to cost and care [...] Chew 1 tablet (81 mg) once daily. eiegsepgmto-shrhblppn-tckmkmog 100-62.5-25 mcg Inhl DsDv Inhale 1 Inhalation once daily. Outpatient Follow-Up: PCP Total time for discharge: 33 minutes documented in this encounter Discharge Instructions * Attachments The following attachments cannot be sent through Care Everywhere. * COPD (Chronic Obstructive Pulmonary Disease) (AfterCare(R) Instructions(ER/ED)) (Greek) * Spontaneous Pneumothorax (AfterCare(R) Instructions(ER/ED)) (Greek) * Chemical Pleurodesis (Discharge Care) (Greek) documented in this encounter Medications at Time [...] RN - 04/28/2023 1:19 PM CDT Carl Shanice 1970 [id number] P: Discharge A: Discharged via wheelchair to TCU at 1330 escorted by nurse I: Discharge information and arrangements included: review of written discharge instructions, review of purpose and side effects of new medication, prescriptions e-Prescribed, portable oxygen sent with the patient/family., belongings list completed. R:Patient, mother, sister expressed understanding of information.. * Renée Sky APRN, EDGER TECHNICIAN - 04/27/2023 11:06 AM CDT CV SURGERY [...] Sky APRN CNP/Dr. Tarango CT Surgery Pager [phone] 04/27/2023 11:06 AM * Han Jacobo MD - 04/27/2023 9:50 AM CDT HOSPITALIST DIVISION PROGRESS NOTE 04/27/2023 Principal Problem: Spontaneous pneumothorax HPI: 53 year old man with end stage COPD on 3L home O2, has been referred to [facility] for lung transplant eval but declined due [...] liters of home oxygen Transplant offered at [facility], patient declined due to cost and care [...] as activity has increased. Plan for Disposition: [facility] tcu will take pt when ready for [...] patient, nurse Total time for visit minutes aHn Jacobo MD, [facility] [place] * Carl Booker DO - 04/27/2023 6:35 AM CDT Called [...] to assess response. Dr. Carl Booker D.O. [facility] - Waiter/Waitress Room Service * April Freitas RN - 04/26/2023 1:35 PM CDT Med-Surg Care Progression Note Type: Shift to shift summary Length of stay: 11 days Code Status: Full Code Primary Problem: Spontaneous pneumothorax, persistent air leak 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 Referred to [facility] for lung transplant eval but declined due [...] 3L home O2, has been referred to [facility] for lung transplant eval but declined due [...] liters of home oxygen Transplant offered at [facility], patient declined due to cost and care [...] as activity has increased. Plan for Disposition: [facility] tcu will take pt for 2 pm tomorrow. pt will call whitney wallace. Code Status: FULL DVT prophylaxis: SCD Objective: [...] time for visit minutes Han Jacobo MD, [facility] * August Tarango MD - 04/26/2023 10:24 [...] - 04/25/2023 10:44 PM CDT Progress Note: [id number] Spontaneous pneumothorax. POD #5 TALC pleurodesis Hx: End-Stage COPD (BL O2 3-4L). Referred to [facility] for lung transplant eval but declined d/t [...] - 04/25/2023 6:42 PM CDT Progress Note: [id number] Spontaneous pneumothorax. POD #5 TALC pleurodesis Hx: End-Stage COPD (BL O2 3-4L). Referred to [facility] for lung transplant eval but declined d/t [...] Diagnosis Date COPD (chronic obstructive pulmonary disease) ([facility]) Deep vein thrombosis (DVT) ([facility]) Dietitian Visit Summary: 04/25/23: Pt tiring of [...] NUTRITION-RELATED H&P Pre-Admission Nutrition History: Usual diet COOKER TENDER Other Pertinent Factors: NA Anthropometric/Physical: Height: 6' [...] mg 15 mg Intravenous Q8H PRN Alex Santana, KYLE 15 mg at 04/24/23 0101 lidocaine (LMX-4) [...] Pauline Rangel DO 3 mg at 04/24/23 210 methocarbamoL (ROBAXIN) tablet 750 mg 750 mg [...] this time April Duron DTR Available via Kout * Han Jacobo MD - 04/25/2023 12:48 PM CDT HOSPITALIST DIVISION PROGRESS NOTE 04/25/2023 Principal Problem: Spontaneous pneumothorax HPI: 53 year old man with end stage COPD on 3L home O2, has been referred to [facility] for lung transplant eval but declined due [...] liters of home oxygen Transplant offered at [facility], patient declined due to cost and care [...] time for visit minutes Han Jacobo MD, [facility] * Alex Santana PA-C - 04/25/2023 8:56 [...] post tube removal. Alex Santana PA-C/Dr. Tarango [facility]or[facility] Surgeons Pager [phone] * Clay Farmer MD - 04/24/2023 12:23 PM CDT Pulmonary Progress Note Summary: Carl Judd is a 53 year old man with end stage COPD on 3L home O2, has been referred to [facility] for lung transplant eval but declined due [...] a better candidate. No s/o AECOPD, continue COOKER TENDER inhalers Acute on chronic hypoxic respiratory failure [...] and Critical Care Medicine [facility] Office: [phone] * AndreajhonnyjuancarlosAlex PA-C - 04/24/2023 9:[address] [...] Continue Intermediate cares, [employer] Alex Santana PA-C/Dr. Tarango [facility] Sur[facility] Pager [phone] * Ghazal Tan MD - 04/24/2023 8:16 AM CDT Images from the original note were not included. HOSPITALIST DIVISION PROGRESS NOTE Brief Summary: This is a 53 year old man with end stage COPD on 3L home O2, has been referred to [facility] for lung transplant eval but declined due [...] Patient developed left upper quadrant pain on 8/5 [...] PLANNING: Per thoracic surgery Ghazal Tan MD [facility] Medicine Available through [employer] 8:00am-6:00 pm CHIEF COMPLAINT: Left-sided PTX failed [...] 3L home O2, has been referred to [facility] for lung transplant eval but declined due [...] PLANNING: Per thoracic surgery Ghazal Tan MD [facility] Medicine Available through [employer] 8:00am-6:00 [...] a few days. Alex Santana PA-C/Dr. [facility] Surgeons Pager [phone] * China Quiroz RN - 04/22/2023 9:08 AM CDT Med-Surg Care Progression Note Type: Shift to shift summary Length of stay: 7 days Code Status: Full Code Primary Problem: Spontaneous pneumothorax, persistent air leak Hx: End-stage COPD (BL O2 3L). Referred to [facility] for lung transplant eval but declined due to finances and ongoing occasional smoking. Post-surgical leukocytosis. 04/20: TALC pleurodesis Summary: Goal: pain management and mobility progression. Pt denies passing gas last night and startof shift. retail shift supervisor gave miralax, noted hypoactive bowel sounds, CT [...] 3L home O2, has been referred to [facility] for lung transplant eval but declined due [...] PLANNING: Per thoracic surgery Ghazal Tan MD [facility] Medicine Available through [employer] 8:00am-6:00 pm CHIEF COMPLAINT: Left-sided PTX failed [...] current smoker Disposition: Continue Intermediate cares, monitor airleak, DC in a few days pending resolution of airleak. Alex Santana PA-C/Dr. [facility]oracic Surgeons Pager [phone] * Elizabeth Nance RN - 04/22/2023 6:29 AM CDT Med-Surg Care Progression Note Type: Shift to shift summary Length of stay: 7 days Code Status: Full Code Primary Problem: Spontaneous pneumothorax, persistent air leak Hx: End-stage COPD (BL O2 3L). Referred to [facility] for lung transplant eval but declined due [...] findings. Stool softeners ordered. Viraj Kumar MD [facility] Medicine * Verito Pereira RN - 04/21/2023 9:00 PM CDT Med-Surg Care Progression Note Type: Shift to shift summary Length of stay: 6 days Code Status: Full Code Primary Problem: Tension pneumothorax, persistent air leak, s/p VATS talc pleurodesis 04/20. End-stage COPD, 3L home O2 at baseline. Referred to [facility] for lung transplant eval but declined due [...] Verbal, Faces: [address] inc[address] pain 4-8/10, managed with PRNs. Anticoagulation/DVT prevention & plan [...] RN - 04/21/2023 4:00 PM CDT Carl Suzanne 1970 [id number] P. Transfer A. Transferred at 1530 to A4 unit. Transported via bed with O2 and IV Pump escorted by nurse. I. Notified no family member of transfer. Patient information and safety items addressed included how to call for help, name of assigned youth career specialist, Patient Information booklet, Handwashing, Respiratory Hygiene, How to Call a Response Team, initial physician orders, hourly rounding procedures, belongings checklist, unit and plan of care. R. Patient expressed understanding of information. . * Jalil Veliz - 04/21/2023 12:35 PM CDT Summary: Humane Agent visit while rounding this unit to provide [...] family per need or request by paging [phone] or through [employer]. Rev. Chaplain Zambrano M.Div. 04/21/2023 1235 pm * Anshul Yarbrough MD - 04/21/2023 10:36 AM CDT NITS ICU Progress Note Summary: Carl Judd is a 53 year old man with end stage COPD on 3L home O2, has been referred to [facility] for lung transplant eval but declined due [...] and Critical Care Medicine [facility] Pager: [phone] * August Tarango MD - 04/21/2023 7:43 [...] Radiology will sign off Erinn Kwok APRN-[facility] Pager [phone] M-F 7am-5pm * Devin Poole RN - 04/20/2023 11:15 AM CDT P. Admission A. Condition on Admit: alert. Patient/Family Concerns: Patient expressed concern about pain relief . I. Initial Interventions included: notified MD of patient arrival, administered medication for mid chest pain, Called 6NW for patient belongings . Orientation to Unit: Patient oriented to how to call for help, name of assigned youth career specialist, belongings checklist, unit and plan of care. [...] SCD Restraints: none Lines: peripheral ESTRELLITA Fofana [facility] Medicine ESTRELLITA Fofana [facility] This document was created using voice recognition [...] every 2 hours Nutrition: Adequate Nutrition Interventions: Crop Specialist consult - protein/albumin assessment Mobility: Slightly Limited [...] Progression Note Type: Shift to shift summary [id number] Length of stay: 4 days Code Status: [...] Fluids: Tolerating regular diet and thin liquids. Crop Specialist consulted and boost supplements added. NPO at [...] TITLE: Cardiovascular Surgery Consultation Patient Name: Carl Judd I was asked to see this patient for evaluation of ongoing air leak on left side and recurrent pneumothorax.. HPI: The patient is a 53 y.o. male who comes today for chest pain 5 days ago. The patient was seen at [facility] and then transferred to [facility]. A CT scan and chest x-ray showed [...] Diagnosis Date COPD (chronic obstructive pulmonary disease) ([facility]) Deep vein thrombosis (DVT) ([facility]) PAST SURGICAL HISTORY Past Surgical History: Procedure Laterality Date ORTHOPEDICS CURRENT MEDS Current Facility-Administered Medications: saline FLUSH syringe 10 mL, 10 mL, Intravenous, Q8H, Emilee Griggs MD, 10 mL at saline FLUSH syringe 10 mL, 10 mL, Intravenous, PRN, Emilee Griggs MD, 10 mL at acetaminophen (TYLENOL) tablet 325-650 mg, 1-2 tablet, oral, Q4H PRN, Emilee Griggs MD, 650 mg at 04/19/23 105 albuterol-ipratropium (conc: 3-0.5mg/3mL) (DUO-NEB) nebulizer solution 3 [...] 1-2 tablet, 1-2 tablet, oral, BID PRN, Jet, Sravani, [employer]BS ALLERGIES/SENSITIVITIES No Known Allergies FAMILY HISTORY [...] Pulse: 90 (!) 104 99 Resp: 18 19 18 Temp: 97.6 ??F (36.4 ??C) 98.3 [...] still continuous air leak but less vigorous, -[id number] suction Skin: Warm, well-perfused, normal cap refill, no rashes Ext: No lower extremity edema Neuro: Alert, oriented, answering questions appropriately, MAEE ASSESSMENT/PLAN: Summary: Mr. 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 - chest tube upsized 04/17. Lung better expanded, but sill with brisk, continuous air leak - continue to -20cm h2o suction - will ask CT surgery to see re: pleurodesis Masood Saenz MD * Lauren Shah, LABORATORY EQUIPMENT CLEANER, EDGER TECHNICIAN - 04/19/2023 11:55 AM CDT INTERVENTIONAL RADIOLOGY PROGRESS NOTE Procedure date: 04/17/2023 Procedure: Placement of an 8 Peruvian left apical chest tube Subjective Romulo is [...] -- 312 INR 1.0 -- Recent Labs 04/18/23 0814 BUNUREANRO 11 CREATININE 0.74 ESTGFRMDRD >60.00 Imaging [...] questions or concerns. Lauren Shah APRN, [facility] Pager Number: Radiology Office: Patient Active Problem [...] SCD Restraints: none Lines: peripheral ESTRELLITA Fofana [facility] This document was created using voice recognition [...] Light on Outside Patient Room Fall Risk bail bonding agent Door (NMR) Hi-Lo Bed (Versa-Care) Keep Assistive [...] respiratory status, CXR in am, determine possible VATS/pleurodesis/group home plan, CTX for 7 days for LLL consolidation/pneumonia, IV abx I- Invasive Devices: PIV, left CT D- Discharge: Home pending medical stability * Lauren Shah APRN, EDGER TECHNICIAN - 04/18/2023 2:35 PM CDT INTERVENTIONAL RADIOLOGY PROGRESS NOTE Procedure date: 04/17/2023 Procedure: Placement of an 8 Peruvian left apical chest tube Subjective Romulo is [...] questions or concerns. Lauren Shah APRN, [facility] Pager Number: Radiology Office: Patient [...] still continuous air leak but less vigorous, -[id number] suction Skin: Warm, well-perfused, normal cap refill, no rashes Ext: No lower extremity edema Neuro: Alert, oriented, answering questions appropriately, MAEE ASSESSMENT/PLAN: Summary: Mr. Judd is a 53 YOM with h/o severe [...] was pursuingpossible lung transplant and declined at [facility] (d/t financial reasons). I am inclined to ask CV Surgery to see him about definitive VATS/pleurodesis, but have sent a message to some [facility] transplant colleagues about whether they would approach the case any different if he may be a transplant candidatein the future. In meantime, continue chest tube -[id number] suction, repeat CXR in AM. Continue CTX for 7d for LLL consolidation/pneumonia. Continue scheduled DuoNebs + Breo inhaler (sub for home Trelegy). We will continue to follow, please call with questions. Dhaval Yao MD [facility] Pager [phone] Total patient care time 30 minutes. * [...] per pulmonary for possible definitive VATS/pleurodesis versus N evaluationfor possible lung transplant #Severe COPD, with acute exacerbation with chronic hypoxic respiratory failure Continue DuoNeb 4 times daily + as needed as needed for shortness of breath Continuue LABA/ICS Continue oxygen therapy as stated above Monitor for respiratory distress CODE STATUS: full GI prophylaxis: diet DVT prophylaxis: SCD Restraints: none Lines: peripheral ESTRELLITA Fofana [facility] Medicine This document was created using voice [...] CT, -20 sxn (has intermittent air leak, MD said that was normal) H- Head OUT [...] RN - 04/17/2023 3:30 PM CDT Carl Shanice 1970 [phone] P. Transfer A. Transferred at 1530 to 6W unit. Transported via bed with CT suction escorted by nurse. I. Notified no family member of transfer. Patient information and safety items addressed included How to Call a Response Team, hourly rounding procedures. R. Patient expressed understanding of information. . * Modesta Quinones RN - 04/17/2023 12:29 PM CDT Med-Surg [...] increased SOB, PT/OT following-on hold today per cable strander recommendation prior to CT placement U- Urologic/bowel: [...] chart reviewed. PT communicated message to this senior copywriter that cable strander recommending hold therapies today, anticipate chest tube [...] Lines: peripheral Discussed care plan with patient ESTRELLITA Fofana [facility] This document was created using voice recognition software and effort was taken in order to review for accuracy, though some inadvertent typographical errors may be present. * Dhaval Yao MD - 04/17/2023 9:27 AM CDT Pulmonary Consult Progress Note Subjective/overnight events: Last night new chest pain L chest, stable O2 3L NC. CXR showed increased L PTX, suctioned increasedto -61oaX06 [address] Dr[address] Ross. At the moment the [...] Intake/Output Summary (Last 24 hours) at 04/17/2023 0948 Last data filed at 04/17/2023 0738 Gross [...] answering questions appropriately, MAEE ASSESSMENT/PLAN: Summary: Mr. Judd is a 53 YOM with h/o severe [...] nurse. Dhaval Yao MD [facility] Pager [phone] Total patient care time 30 minutes. * [...] to fully evacuate space. Alondra Ross MD [phone] () [phone] (office) * Pauline Rangel DO - 04/17/2023 [...] ordered for chest pain. Pauline Rangel DO [facility] Medicine Update: EKG was NSR with sinus [...] Progression Note Type: Shift to shift summary: [id number] Length of stay: 2 days Code Status: Full Code Primary Problem: Spontaneous L-sided pneumothorax. Hx COPD. CT placed at OSH. Summary: Pt c/o SOB/CP around 0530. CXR showed increased pneumo~ paged Pulmonary per [...] Discharge: pending chest tube removal * Leidy Aleman, RT - 04/16/2023 7:20 PM CDT Patient [...] severe underlying COPD (transplant evaluation completed at [facility] ) - hope to avoid surgery as [...] stage COPD. Declined for lung transplant at [facility] due to financial concerns. 3. Hypoxia - [...] NOTE Length of Stay: 1 ASSESSMENT/PLAN: Carl Judd is a 53 y.o. male with PMH [...] GI prophylaxis: not indicated, has a diet Supervisor Fine Grading Type Used: None ACCESS: PIV RESTRAINTS: not [...] results. Emilee Griggs MD Hospitalist/Internal Medicine Pager: jus * Emi Cooper RN - 04/16/2023 7:06 AM CDT Med-Surg Care Progression Note Type: Shift to shift summary [id number] Length of stay: 1 days Code Status: [...] Progression Note Type: Shift to shift summary [id number] Length of stay: 0 days Code Status: [...] PIV x2 D- Discharge: TBD * Elmira Camp RT - 04/15/2023 11:45 AM CDT Patient [...] ADMISSION HISTORY AND PHYSICAL Patient Name: Carl Judd Address: [place] [address] Age: 53 y.o. Sex: male Admission Date/Time: 04/15/2023 6:37 AM Primary Care Provider: Md Ariadna Informant: patient CHIEF COMPLAINT: SOB HPI: Carl Judd is a 53 y.o. male with PMH [...] chest tube placed. He was transferred to [facility] for further management. Per ED notes, he [...] patient's new imaging test results. ASSESSMENT/PLAN: Carl Judd is a 53 y.o. male with PMH [...] prednisone as can prohibit healing - defer COOKER TENDER inhaler to pulm Mild leukocytosis, likely stress de-margination - Continue to monitor CBC, no abx for now as no clear signs or sx of infection CODE STATUS: Full Code - Discussed with patient on admission DVT prophylaxis: not indicated, chest tube in place GI prophylaxis: not indicated, has a diet Supervisor Fine Grading Type Used: None ACCESS: PIV RESTRAINTS: not [...] this encounter Procedure Notes * Lauren Shah, LABORATORY EQUIPMENT CLEANER, EDGER TECHNICIAN - 04/17/2023 10:23 AM CDT Procedure Consent Name: Carl Judd Date Seen: 04/17/2023 PCP: Rohan Saldaña MD Carl Judd is a 53 y.o. male seen and [...] proceed. Consent signed. Lauren Shah APRN, CNP [facility] Pager Number: Radiology Office: documented [...] Diagnosis Date COPD (chronic obstructive pulmonary disease) ([facility]) Deep vein thrombosis (DVT) ([facility]) Dietitian Visit Summary: 04/19/23: Open to Boost [...] NUTRITION-RELATED H&P Pre-Admission Nutrition History: Usual diet COOKER TENDER Other Pertinent Factors: NA Anthropometric/Physical: Height: 6' [...] mg 3 mg oral Q BEDTIME Pauline Rangel, DO 3 mg at 04/18/23 2207 methocarbamoL [...] time Stacy Gonzalez RD LD Available via Kout * Martin Khan, PT - 04/17/2023 9:30 AM CDT Acute Physical Therapy Evaluation Patient Name: Carl Judd Today's Date: 04/17/2023 Admission Date: 04/15/2023 Assessment PT Assessment/Recommendations Assessment: Pt is a 53 yo male admitted for tension pneumothorax. COOKER TENDER pt reports IND with all mobility without use of AD. Currenlty requiring CGA for transfers and short bout of ambulation. Pt mildlyunsteady throughout, but no overt LOB. Sats in low-mid 90s throughout session on 3.5L (3L baseline). Towards the end of session, cable strander came to assess pt and reported need [...] mildly unsteady gait with no overt LOB [facility] AM-PAC 6-Clicks Turning over in bed (including [...] Patient will perform supine to sit with: Leedey Sit to/from Stand Patient will perform sit to/from stand transfer with: Leedey Assistive Device: No assistive device Gait Level [...] MEDICINE PULMONARY CONSULTATION NOTE Patient Name: Carl Judd Address: .[place] [address] Age:53 y.o. Sex: male Admission Date/Time: 04/15/2023 6:37 AM Requesting Physician: [facility] Attending Physician: Emilee Griggs MD I was asked to see this patient at the request of Dr. Griggs for evaluation of left sided pneumothorax. HPI: 53 yo gentleman with history of severe COPD (followed by pulmonary in [place]). Developed left chest pain yesterday. Then went to [facility] - left ptx noted. Concern for tension -needle aspiration completed, then left chest tube placed. At baseline: severe COPD. Followed by a cable strander in [place] - he couldn't remember the nameat the time of my visit. Has been referred to [facility] for consideration of lung transplant. Denied perfinancials [...] his permission, I reviewed pulmonary records from [facility] transplant evaluation. He was determined to be ineligible on 03/16/23 - no further data available. He had considered starting pulmonary rehab through [facility] in January, but hasn't started this due [...] severe underlying COPD (transplant evaluation completed at [facility] ) - hope to avoid surgery as able. Pain meds per hospital medicine Would also hold on further doses of steroids as this might slow pleural healing. Agree with changing home [place] to [place] for now If he has any change [...] COPD. Followed by pulmonary. Was referred to [facility] for consideration of lung transplant - declined due to finances. Developed dyspnea yesterday. PCP thought it might be a pulled muscle. Then went to [facility] - left ptx noted. Left chest tube [...] for additional information if needed. * Leidy Ojeda, RN - 04/28/2023 11:11 AM CDT 04/28/2023 Care Management-Discharge Plan Finalization Discharge Date: 04/28/2023 Time: 12:30 Discharge Needs: tcu Discharge Location: Selected Continued Care - Admitted Since 04/15/2023 Destination Coordination complete. Service Provider Selected Services Address Phone Fax Patient Preferred [facility] [place] [phone] [facility] [phone] -- Internal Comment last updated by Leidy Ojeda, RN 04/28/2023 1045 1st 04/28/2023 Spoke with Erinn, they will take pt earliest 1 pm . Cm updated pt and care team. Serena/reed 04/27/2023 Called and updated Erinn @admission d/c pending medical stability. Will update tcu tomorrow. Serena/reed 04/26/2023 LVM for Melania abbottroseline , up dating her that CT is removed on 04/25, waiting for a call back. M.a/cm 04/26/2023 Spoke with Erinn, she stated her coworker is reviewing and will call us back .serena/reed 04/25/2023@2:31 PM Called [phone] , spoke with Erinn, confirmed they received the referral. Referral under review, they will call us back with update. m.a/cm 04/25/2023@11:42 AM Called [phone] spoke with admission. They have bed, requested referral faxed over. Referral faxed to [phone] per request.yuri/reed PAS: [id number] Oxygen: 3-4L NC , portable O2 from NW in the room Transportation: Family/friend Additional cost of transportation discussed with patient/family: N/a D/C orders, prescriptions and PAS were faxed to: [phone] ,@ 11:18 AM , phone # [phone], Updated Patient, Bedside RN, endless bed drum sander, Provider, ANIMAL CONTROL SUPERVISOR, and Care facility of discharge arrangements. - Aggie called from tcu and wants the pt to know they are non smoke facility. Reed met with pt & family in the room and communicated to the pt. 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 Referred to [facility] for lung transplant eval but declined due [...] d/c tomorrow pending respiratory status * Linh Chowdary RT - 04/27/2023 3:30 PM CDT Problem: [...] Selected Services Address Phone Fax Patient Preferred [facility] [place] [phone] [facility] [phone] -- Internal Comment last updated by Leidy Ojeda RN 04/27/2023 1515 [facility] 04/27/2023 Called and updated Erinn @admission d/c pending medical stability. Will update tcu tomorrow. Ma/cm 04/26/2023 LVM for Melania drake , up dating her that CT is removed on 04/25, waiting for a call back. M.a/cm 04/26/2023 Spoke with Erinn, she stated her coworker is reviewing and will call us back .ma/cm 04/25/2023@2:31 PM Called [phone] , spoke with Erinn, confirmed they received the referral. Referral under review, they will call us back with update. m.a/cm 04/25/2023@11:42 AM Called [phone] spoke with admission. They have bed, requested referral faxed over. Referral faxed to [phone] per request.m.a/cm Potential Barriers: medical stability Care Coordination Plan & Communication with Patient/Family: pt discussed in rounding, chart reviewed. 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 Referred to [facility] for lung transplant eval but declined due [...] Acute Physical Therapy Treatment Patient Name: Carl Judd Today's Date: 04/27/2023 Admission Date: 04/15/2023 Precautions [...] speed with heavy UE support on AD. 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 Referred to [facility] for lung transplant eval but declined due [...] Acute Physical Therapy Treatment Patient Name: Carl Judd Today's Date: 04/26/2023 Admission Date: 04/15/2023 Assessment [...] manycues for diaphgramatic breathing/PLB to slow RR. [facility] AM-PAC 6-Clicks Turning over in bed (including [...] Occupational Therapy Acute Treatment Patient Name: Carl Judd Today's Date: 04/26/2023 Admission Date: 04/15/2023 ASSESSMENT/PLAN/RECOMMENDATIONS [...] TCU at d/c for safe return to PLOF. Will follow acutely. Recommendations For Next Session: transfers, in room mobility, AE for LED (has assistant curator), hygienes at sink when off suction INPATIENT [...] Patient Seen In: Room Family/Caregiver Present: No Supervisor Fine Grading Used?: NA Hearing: Within Functional Limits Lines [...] Frame Short term goals target date: 04/25/23 assistant terminal manager goals target date: 05/02/23 Patient/Family Participation in [...] standing at the sink Outcome: Goal Ongoing Jail Goals Patient will complete ADLs including: hygiene/grooming, dressing, toileting, independently Outcome: Goal Ongoing * Leidy Ojeda, RN - 04/26/2023 1:17 PM CDT 04/26/2023 Care Management - Progress Note Patient's chart reviewed. Patient discussed in rounds. Assessment: Spontaneous Pneumothorax, talc pleurodesis Anticipated Discharge Date: 04/27/23 Anticipated Discharge Needs: tcu Selected Continued Care - Admitted Since 04/15/2023 Destination Coordination complete. Service Provider Selected Services Address Phone Fax Patient Preferred [facility] [place] [phone] [facility] [phone] -- Internal Comment last updated by Leidy Ojeda, RN 04/26/2023 1254 [facility] 04/26/2023 LVM for Melania milenaroseline , up dating her that CT is removed on 04/25, waiting for a call back. M.a/cm 04/26/2023 Spoke with Erinn, she stated her coworker is reviewing and will call us back .ma/reed 04/25/2023@2:31 PM Called [phone] , spoke with Erinn, confirmed they received the referral. Referral under review, they will call us back with update. m.a/cm 04/25/2023@11:42 AM Called [phone] spoke with admission. They have bed, requested referral faxed over. Referral faxed to [phone] per request.m.a/cm Potential Barriers: medical stability, Care Coordination Plan & Communication with Patient/Family: pt discussed in rounding. Chart reviewed Cm called and spoke with Melania shepard [phone] @admission. Provided requested information ; pt SS, and Address: [address] [place] [address] [address] , [facility] [address]. [facility] trace confirmed they can take pt tomorrow earliest 2 pm and latest 6 pm. -pt in agreement with d/c to [facility], setting up portable O2 via [facility]. Pt will call family for a ride. -cm updated the care team via secure chat. - cm called [facility] [phone] spoke with Lutece & arranged portable O2 to be delivered tomorrow before 2 pm. 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 Referred to [facility] for lung transplant eval but declined due to finances and ongoing occasional smoking. Post-surgical leukocytosis. 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 Referred to [facility] for lung transplant eval but declined due [...] Devices: PIV x1; Chest tube clamped at 2000 D- Discharge: Lives IND at baseline. Pt may need to go to TCU at discharge. CTS ok with DC from their standpoint tomorrow if CXR stable. * Leidy Ojeda, ALESSANDRA - 04/25/2023 10:36 AM CDT 04/25/2023 Care [...] Selected Services Address Phone Fax Patient Preferred [facility] Pending - No Request Sent N/A [phone] [facility] [phone] -- Internal Comment last updated by Leidy Ojeda RN 04/25/2023 14310 1904/25/2023@2:31 PM Called [phone] , spoke with Erinn, confirmed they received the referral. Referral under review, they will call us back with update. trace 04/25/2023@11:42 AM Called [phone] spoke with admission. They have bed, requested referral faxed over. Referral faxed to [phone] per request.m.a/cm [facility] Pending - No [place] Sent [place]/A [id number] [facility] [phone] -- Internal Comment last updated by Leidy Ojeda RN 04/25/2023 14301 1704/25/2023@2:33 PM LVM alicia Bravo @[phone] requesting for a call back with update.cy 04/25/2023@11:38 AM Spoke with Shelly @admission [phone]. They have one shared room , will review. Referral faxed to [phone] . Serena/reed [facility] Pending - No Request Sent N/A [address] [facility] [phone] -- Internal Comment last updated by Leidy Ojeda RN 04/25/2023 1204 [facility] 04/25/2023@11:39 AM Spoke with liaison Hernan and granted epic access. 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 Referred to [facility] for lung transplant eval but declined due [...] Devices: PIV x1; Chest tube clamped at 2000 D- Discharge: Lives IND at baseline. 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 Referred to [facility] for lung transplant eval but declined due to finances and ongoing occasional smoking. Post-surgical leukocytosis. 04/20: TALC pleurodesis POD x4 Summary: Severe pain from chest tube site ongoing issue. Continued pain management with PRN Dilaudid, Oxy, Tylenol, and sched. Robaxin. CT placed on suction trial today, clamped at 2000, Pt premedicated with oxy and Tylenol before [...] Occupational Therapy Acute Treatment Patient Name: Carl Judd Today's Date: 04/24/2023 Admission Date: 04/15/2023 ASSESSMENT/PLAN/RECOMMENDATIONS [...] ADL distance with PT today. Pt OR /5, missing date. Pt is below baseline for [...] Patient Seen In: Room Family/Caregiver Present: No Supervisor Fine Grading Used?: NA Hearing: Within Functional Limits Lines and Tubes: Chest Tube (L Now on water seal) Subjective (Comment): Pt in chair and agreeable to tx PRECAUTIONS Therapy Vitals SpO2: 90s Oxygen Delivery Device: Nasal Cannula Amount of Supplementary O2: 4L SAFETY INTERVENTIONS Safety Interventions Fall Risk?: Yes Safety Interventions/Patient Disposition: Standard interventions, Marietta sitter on PATIENT IS FUNCTIONING FOLLOWS: Therapeutic [...] Frame Short term goals target date: 04/25/23 assistant terminal manager goals target date: 05/02/23 Patient/Family Participation in [...] standing at the sink Outcome: Goal Ongoing Jail Goals Patient will complete ADLs including: hygiene/grooming, dressing, toileting, independently Outcome: Goal Ongoing * Tracey Mckeon RN - 04/24/2023 2:44 PM CDT Med-Surg Care Progression Note Type: Shift to shift summary Length of stay: 9 days Code Status: Full Code Primary Problem: Spontaneous pneumothorax, persistent air leak 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 Referred to [facility] for lung transplant eval but declined due [...] Acute Physical Therapy Treatment Patient Name: Carl Judd Today's Date: 04/24/2023 Admission Date: 04/15/2023 Assessment [...] very slow, shuffled gait. Mildly unsteady throughout [facility] AM-PAC 6-Clicks Turning over in bed (including [...] Risk?: Yes Safety Interventions/Patient Disposition: Standard interventions, Mari[place] sitter on, In chair, All needs within reach GOALS-The interventions during this session were provided to address the goals set forth on evaluation and are ongoing unless otherwise indicated. Time Frame Goals target date: 05/01/23 Supine to Sit Patient will perform supine to sit with: Leedey Sit to/from Stand Patient will perform sit to/from stand transfer with: Leedey Assistive Device: No assistive device Gait Level [...] Total Billable Minutes: 26 Minutes * Andrea Camarena RT - 04/24/2023 12:58 PM CDT Patient [...] this pm. 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 Referred to [facility] for lung transplant eval but declined due [...] water seal). D- Discharge: TBD * Kiki Estrada, RT - 04/23/2023 11:34 AM CDT Patient has orders for Duo neb Qid. Patient seen on Nasal Cannula at 4 LPM. SpO2: 98 %, Respirations: 20, Pulse: (!) 104. Pre treatment Breath sounds All Spivey: Clear;Diminished. Patient received nebulizer as ordered via Delivery Device: Mask. Patient tolerated treatment well. Skin assessment: good Refer to flowsheet for additional information if needed. * Kiki Estrada, RT - 04/23/2023 7:39 AM CDT Patient [...] End-stage COPD (BL O2 3L). Referred to [facility] for lung transplant eval but declined due [...] No change to CT air leak, still gkljwhirwuff-wt-pgfpgqaybo at 1. H- Head OUT of Bed [...] Flowsheets Taken 04/22/2023 2342 by Jesika Osborne, RN Environmental Safety Interventions: Standard Interventions in [...] End-stage COPD (BL O2 3L). Referred to [facility] for lung transplant eval but declined due [...] No change to CT air leak, still dakxjhnobfzf-an-xyeddaazvz at 1. H- Head OUT of Bed [...] Light on Outside Patient Room Fall Risk bail bonding agent Door (NMR) Frequent Re-Orientation and Repetitive Reminders [...] within normal limits 04/21/2023 1401 by Desi Alonso, RN Outcome: Met this shift Patient remains [...] of acceptable comfort 04/21/2023 1401 by Desi Alonso, RN Outcome: Ongoing Patient complains of left sided chest/incisional pain. Medicated with oxycodone 10 mg every 6 hours, lidocaine patch applied, dilaudid 0.5 mg as needed for breakthrough pain with some relief achieved, .5 mg x3 given. Continue to monitor and medicate for pain. Plan transfer to [facility] shortly. DESI ALONSO RN * Kelsie Esparza [...] be discontinued as soon as possible. This senior copywriter decided to keep elena in due to [...] To ICU with RN and NA full surveillance monitor. * Kelsea Stephen SW - 04/20/2023 10:24 [...] d/c needs pending medical stability. Kelsea Samson, CANOE BUILDER Social Work Ext [phone] * April Pierre - 04/20/2023 9:54 AM CDT Pt in PACU. He is quite drowsy, skin cool on extremities, trunk warm. He follows commands. Decreased breath sounds with cracking on inspiration. Unable to ausciltate heart sounds. Hr st on surveillance monitor. No ectopy. Cuff and art line pressures [...] for additional information if needed. * Sadi Hutson, - 04/19/2023 1:17 PM CDT Patient has [...] Falls/Injury Outcome: Met this shift Flowsheets (Taken 04/19/2023 0830) Environmental Safety Interventions: Standard Interventions in Place Fall Risk Light on Outside Patient Room Patient/Family Reminded Regarding Fall Prevention High Risk Armband On (Green Bracelet) Hi-Lo Bed ([facility]) Mobility Safety Interventions: Standard Interventions in Place [...] Acute Physical Therapy Treatment Patient Name: Carl Judd Today's Date: 04/18/2023 Admission Date: 04/15/2023 Precautions [...] LOB. Gait in room 2/2 chest tube [facility] AM-PAC 6-Clicks Turning over in bed (including [...] Patient will perform supine to sit with: Leedey Sit to/from Stand Patient will perform sit to/from stand transfer with: Leedey Assistive Device: No assistive device Gait Level [...] Occupational Therapy Acute Evaluation Patient Name: Carl Judd Today's Date: 04/18/2023 Admission Date: 04/15/2023 ASSESSMENT/PLAN/RECOMMENDATIONS [...] reach feet for LE dressing. Was issued assistant curator and educated on use. Pt does not appear safe for home alone at this time. Will follow for functionalgoals. Thank you. Recommendations For Next Session: transfers, in room mobility, AE for LED (has assistant curator), hygienes at sink when off suction INPATIENT [...] Patient Seen In: Room Family/Caregiver Present: No Supervisor Fine Grading Used?: NA Hearing: Within Functional Limits Lines and Tubes: Chest Tube (left) Subjective (Comment): Pt motivated to get OOB this AM. PRECAUTIONS Therapy Vitals SpO2: 98% Oxygen Delivery Device: Nasal Cannula Amount of Supplementary O2: 3.5L SAFETY INTERVENTIONS Safety Interventions Fall Risk?: Yes Safety Interventions/Patient Disposition: Standard interventions, Alida sitter on, In chair, Call light in [...] is independent with: ADLs, Shopping, Meal Preparation, Senior Energy Analyst, Medication Management, Driving (prepares easy meals) Patient [...] ADL/IADL STATUS Current ADL Status Equipment Provided: Hvac Mechanic Eating Assistance: Independent Grooming Assistance: Set-up ADL Comments: Completed grooming with set up assist. Unable to reach feet for LE dressing. Current IADL Status Meal Preparation: needs assist Medication Management: per baseline Senior Energy Analyst: per baseline FUNCTIONAL MOBILITY Bed Mobility Rolling: [...] Frame Short term goals target date: 04/25/23 assistant terminal manager goals target date: 05/02/23 Patient/Family Participation in [...] standing at the sink Outcome: Goal Ongoing Jail Goals Patient will complete ADLs including: hygiene/grooming, [...] banded. No output. Patient breathing coarse, on [facility] 3L O2. Problem: Communication Goal: Demonstrates/exhibits ability to communicate needs effectively Outcome: Completed Pt is A&Ox3, able to verbalize and make needs known. Demonstrates use of equipment and tools inthe hospital environment to keep himself safe. * China Grijalva RT - 04/17/2023 7:50 PM CDT Patient has [...] shift Pt denied pain following interventions on retail shift supervisor. * Tyler Crowell RN - 04/17/2023 2:26 [...] rounds. Admitting diagnoses: Spontaneous pneumothorax [J93.83] Carl Judd is a 53 y.o. male with a history of COPD on 3 L of oxygen at baseline who presents to the emergency department via EMS from [facility] for evaluation of a pneumothorax. Per EMS, the patient was initially brought to [facility] ED with 2 days of shortness of breath, and his initialoxygen saturation was 50%. Chest tube placement Admitted from: Home Prior: Living Arrangements: Alone Support Systems: Family members- mother and siblings, Yelitza Sheikh [phone] Primary decision maker: Patient DME prior to [...] Dr. Mena for primary care at the [facility]. When the pt is ready for d/c, he says his sister or friend will provide transportation. SW phone call with his sister Yelitza Sheikh who says she would like to be updated [phone]. She says the pt really needs a different dwelling that has no stairs. [facility] [place] [facility]. Barriers to discharge: medical stability Care management will continue to follow. JORDAN Borjas, [facility] Pager: [phone] 04/16/2023 2:13 PM * Eva Redding RT - 04/16/2023 12:56 PM CDT BS [...] grams talc pleurodesis. Surgeon: Anshul Tarango MD Nail Polish Brush Machine Feeder: Renée Sky NP Dictation: Under general anesthesia [...] approximated with interrupted 3- 0 nylon sutures. news production assistant: Renée Sky NP assisted with opening, [...] HPI: Initial history obtained at 6:56 AM 04/15/23. Carl Judd is a 53 y.o. male with a history of COPD on 3 L of oxygen at baseline who presents to the emergency department via EMS from [facility] for evaluation of a pneumothorax. Per EMS, the patient was initially brought to [facility] ED with 2 days of shortness of breath, and his initialoxygen saturation was 50%. Xray at [facility] showed a left sided tension pneumothorax. A chest tube was placed, but the hospital felt that they could not adequately care for the patient there, so [facility]was [facility]. The patient received 1 L of normal [...] Shortness of breath Ventricular Rate: 98 QRS [place]: 73 Intervals: DC 142, QRSD 86, QTc 438 Interpretation: Sinus [...] of Health affecting care: None Stabilization Course: (0637) - The patient arrived directly into Stabilization Room 3 due to the severity of the patient's condition. A Med Team STAT was called and I was paged and present at bedside awaiting patient's arrival. The patient was transferred to an emergency center bed. History and rapid physical was performed. Patient was immediately placed on continual cardiac monitoring and pulse oximetry. (4953) - Portable chest X-ray was performed. (5556) - I reviewed the patient's vital signs, [...] J44.1 DISPOSITION: Admit to the care of Hospital Medicine New Prescriptions No medications on [...] is accurate. Hailee Angulo MD 04/15/23 04/15/2023 [facility] EMERGENCY DEPARTMENT * Tia Tam RN - 04/15/2023 6:38 AM CDT Patient arrives via EMS from [facility] with c/o pneumothorax with SOB. Hx of COPD, on 3 L at baseline. Patient had reported 2 days of SOB. At home oxygen saturations were 50%. Upon arrival to [facility] ED patient was noted to have a spontaneous L sided pneumothorax. Needle decompression done and chest tube placed prior to transfer. Patient was placed on high flow oxygen en route. Patient arrives A/O, reports pain to L side chest 02/25. * Moo Borrego - 04/15/2023 6:23 AM CDT Transfer to [facility] Transferring facility: [facility] taking transfer request: Karlo Lam [place] / specialist notified: none Special needs / [...] - 04/15/2023 4:51 AM CDT Transfer to [facility] Information Transferring facility: [facility] taking transfer request: Karlo Lam [place] / specialist notified: None Special needs / [...] admission medications were reviewed with patient and [facility] records. The [facility] medication list has been updated and reflected in the chart below. Please use the [facility] medication section for ordering home doses during admission. Medication related issues: 1. All medications added to [facility] med list. 2. No recent fill records, patient states he pays espinal for inhalers, was able to verify correct medications that align with [facility] ED list. PRIOR TO ADMISSION MEDICATION LIST: Prior to Admission Medications Prescriptions Last Dose Informant Patient Reported? Taking? albuterol HFA (PROVENTIL;VENTOLIN HFA) 90 mcg/actuation Inhl inhaler PRN Patient Yes Yes Sig: Inhale 2 puffs every 4 (four) hours as needed. aspirin 81 mg oral chewable tablet PRN Patient Yes Yes Sig: Chew 1 tablet (81 mg) once daily. skgusjwcyct-qhvhzqcch-iovlrrgq 100-62.5-25 mcg Inhl DsDv 04/14/2023 Patient Yes Yes Sig: Inhale 1 Inhalation once daily. Facility-Administered Medications: None This patient obtains medications from [facility]. Thank you for the opportunity to participate in the care of this patient. Jeffrey Dueñas, Wall Insulation Sprayer Phone #:[phone] Time spent reconciling meds:10 min Location: face [...] SIGNED BY SCARLETT MALDONADO M.D. Renée Sky LABORATORY EQUIPMENT CLEANER, EDGER TECHNICIAN XRAY ORDERABLE * EKG (04/27/2023 6:37 AM CDT) Only the most recent of3 resultswithin the time period is included. EKG I MELISSA Comment: ?[facility] ? Test Date: ?2023-04-27 Pat Name: ? CARL JUDD ?Department: ?? A4 ?Room: ? A481 Gender: ? 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 [id number] : ?1970 ? Requested By: CARL BOOKER MD Order Number: [id number] ?Reading MD: ?? Eugenio Live MD ? Measurements Intervals ?[place] ? Rate: ? 106 ?P: ?73 DC: ? 144 ?QRS: ?59 QRSD: ? 90 ? T: ?66 QT: ? 337 ? QTc: ?449 ? Interpretive Statements SINUS TACHYCARDIA ABNORMAL RHYTHM ECG Compared to ECG 04/17/2023 05:52:38 Sinus rhythm no longer present Electronically Signed On 04-30-2023 10:52:05 CDT by Eugenio Live MD 04/27/2023 6:37 AM CDT Carl Booker DO EKG ORDERABLE [facility] [address] [place] [address] * XR CHEST AP PORT (04/27/2023 6:36 [...] REPORT SIGNED BY Tani Ritchie M.D. Carl Booker XRAY ORDERABLE * (ABNORMAL) Creatinine / eGFR (04/26/2023 10:56 AM CDT) Only the most recent of3 resultswithin the time period is included. Creatinine 0.71(L) 0.73 - 1.18 mg/dL ATELLICA ANALYZER 04/26/2023 1:13 PM CDT [facility] Est GFR (CKD-EPI) >60.00 >60.00 mL/min/1. 73m2 ATELLICA ANALYZER 04/26/2023 1:13 PM CDT [facility] Comment:Calculation based on the Chronic Kidney Disease Epidemiology Collaboration (CKD-EPI) equation refit without adjustment for race. Blood 04/26/2023 10:5 6 AM CDT 04/26/2023 11:48 AM CDT Han Jacobo MD CHEMISTRY ORDERABLE Performing Organization Address City/[facility]/ZIP Co de Phone Number [facility] [address], [place] [address] * Potassium, Serum (04/26/2023 10:56 AM CDT) Only the most recent of4 resultswithin the time period is included. Potassium 4.6 3.4 - 5.1 mmol/L ATELLICA ANALYZER 04/26/2023 1:03 PM CDT [facility] Blood 04/26/2023 10:5 6 AM CDT 04/26/2023 11:48 AM CDT Han Jacobo MD CHEMISTRY ORDERABLE Performing Organization Address City/[facility]/ZIP Co de Phone Number [facility] [address] [facility] [place], [place] [address] * Magnesium (04/26/2023 10:56 AM CDT) Only the most recent of8 resultswithin the time period is included. Magnesium 1.8 1.6 - 2.6 mg/dL ATELLICA ANALYZER 04/26/2023 12:14 PM [facility] Blood 04/26/2023 10:5 6 AM CDT 04/26/2023 11:48 AM CDT Jesika Osborne RN CHEMISTRY ORDERABLE [facility] [address] [place] [address] * (ABNORMAL) CBC / DIFF (04/25/2023 4:39 AM CDT) Only the most recent of6 resultswithin the time period is included. [facility] WBC 8.9 4.3 - 10.8 K/uL 04/25/2023 5:01 AM [facility] RBC 3.65(L) 4.60 - 6.20 M/uL 04/25/2023 5:01 AM [facility] Hemoglobin 10.4(L) 14.0 - 18.0 gm/dL 04/25/2023 5:01 AM [facility] Hematocrit 32.6(L) 40.0 - 54.0 % 04/25/2023 5:01 AM [facility] MCV 89 80 - 100 fL 04/25/2023 5:01 AM [facility] MCH 29 27 - 33 pg 04/25/2023 5:01 AM [facility] MCHC 32(L) 33 - 36 gm/dL 04/25/2023 5:01 AM [facility] RDW 12.3 11.5 - 14.5 % 04/25/2023 5:01 AM [facility] Platelet Count 363 150 - 400 K/UL 04/25/2023 5:01 AM [facility] MPV 9.5 6.5 - 12 fL 04/25/2023 5:01 AM [facility] PMN % 60.7 % 04/25/2023 5:01 AM [facility] IG % 1.5(H) <=1.0 % 04/25/2023 5:01 AM [facility] Comment:Immature granulocyte s often indicate left shift when outside of normal limits. Lymphocyte % 13.5 % 04/25/2023 5:01 AM [facility] Monocyte % 13.1 % 04/25/2023 5:01 AM [facility] Eosinophil % 10.4 % 04/25/2023 5:01 AM [facility] Basophil % 0.8 % 04/25/2023 5:01 AM [facility] PMN Absolute 5.39 1.80 - 7.80 K/uL 04/25/2023 5:01 AM [facility] IG ABSOLUTE 0.13(H) 0.00 - 0.00 K/uL 04/25/2023 5:01 AM [facility] Lymphocyte Absolute 1.20 1.00 - 4.00 K/uL 04/25/2023 5:01 AM [facility] Monocyte Absolute 1.16(H) 0.00 - 1.00 K/uL 04/25/2023 5:01 AM [facility] Eosinophil Absolute 0.92(H) 0.00 - 0.45 K/uL 04/25/2023 5:01 AM [facility] Basophil Absolute 0.07 0.00 - 0.20 K/uL 04/25/2023 5:01 AM [facility] Nucl RBC % 0.0 0.0 - 0.0 /100 WBC 04/25/2023 5:01 AM [facility] Nucl RBC Absolute 0.00 0.00 - 0.00 K/uL 04/25/2023 5:01 AM [facility] Blood 04/25/2023 4:39 AM CDT 04/25/2023 4:55 AM [facility] Ghazal Tan MD HEMATOLOGY ORDERABLE [facility] [address] [place] [address] * (ABNORMAL) Basic Metabolic Profile Magnesium (04/25/2023 4:39 AM CDT) Only the most recent of4 resultswithin the time period is included. Sodium 138 136 - 145 mmol/L ATELLICA ANALYZER 04/25/2023 5:23 AM T [facility] Potassium 4.1 3.4 - 5.1 mmol/L ATELLICA ANALYZER 04/25/2023 5:23 AM [facility] Chloride 98 98 - 108 mmol/L ATELLICA ANALYZER 04/25/2023 5:23 AM T [facility] Carbon Dioxide 36(H) 20 - 31 mmol/L ATELLICA ANALYZER 04/25/2023 5:23 AM [facility] BUN (Urea Nitro) 13 9 - 23 mg/dL ATELLICA ANALYZER 04/25/2023 5:23 AM [facility] Creatinine 0.72(L) 0.73 - 1.18 mg/dL ATELLICA ANALYZER 04/25/2023 5:23 AM [facility] Est GFR (CKD-EPI) >60.00 >60.00 mL/min/1. 73m2 ATELLICA ANALYZER 04/25/2023 5:23 AM [facility] Comment:Calculation based on the Chronic Kidney Disease Epidemiology Collaboration (CKD-EPI) equation refit without adjustment for race. Glucose 98 74 - 106 mg/dL ATELLICA ANALYZER 04/25/2023 5:23 AM [facility] Calcium, Serum 9.0 8.7 - 10.4 mg/dL ATELLICA ANALYZER 04/25/2023 5:23 AM [facility] Anion Gap 4.0 0.0 - 15.0 mmol/L ATELLICA ANALYZER 04/25/2023 5:23 AM [facility] Magnesium 1.6 1.6 - 2.6 mg/dL ATELLICA ANALYZER 04/25/2023 5:23 AM [facility] Blood 04/25/2023 4:39 AM CDT 04/25/2023 4:55 AM CDT Ghazal Tan MD CHEMISTRY ORDERABLE [facility] [address] [address] * Blood Aerobic (1 Bottle) Culture (04/23/2023 11:52 AM CDT) Blood Culture (<5 Years Old/Short Draw) No growth 5 days. 04/28/2023 3:05 PM CDT [facility] Blood STRUCTURE OF RIGHT HAND / Unknown 04/23/2023 11:52 AM CDT 04/23/2023 11:52 AM CDT Ghazal Tan MD MICROBIOLOGY ORDERAB LE Performing Organization Address [facility] de Phone Number [facility] [address] [address] * Extra Tube-EDTA (Lab Use Only) (04/22/2023 4:44 AM CDT) Only the most recent of2 resultswithin the time period is included. Blood 04/22/2023 4:44 AM CDT 04/22/2023 5:38 AM CDT Stefany Agosto MD HEMATOLOGY ORDERABLE Performing Organization Address [facility] de Phone Number [facility] [address] [address] * CT Abdomen & Pelvis w/o Oral [...] catheterization. REPORT SIGNED BY DR. GO AMARO Narrative 04/22/2023 4:10 AM CDT EXAM: ??CT ABDOMEN [...] * (ABNORMAL) Hemoglobin (04/21/2023 5:13 AM CDT) Hemoglobin 13.8(L) 14.0 - 18.0 gm/dL 04/21/2023 5:43 AM CDT [facility] Blood 04/21/2023 5:13 AM CDT 04/21/2023 5:36 AM CDT Sravani HARO HEMATOLOGY ORDERABL E [facility] [address] [place] [address] * ABORh Confirm (Lab Use Only) (04/20/2023 11:55 AM CDT) Group and Rh B Positive 04/20/2023 12:51 PM CDT [facility] Blood ARTERIAL LINE SUBMITTED SPECIMEN / Unknown 04/20/2023 11:55 AM CDT 04/20/2023 12:06 PM CDT Sravani Chaudhary [facility] ORDERABL E [facility] [address] [facility] [place] [address] [facility] [address] [address] * Protime/INR (04/20/2023 11:55 AM CDT) Only the most recent of3 resultswithin the time period is included. Pathologist [facility] INR 1.0 0.9 - 1.2 04/20/2023 12:32 PM CDT [facility] Blood ARTERIAL LINE SUBMITTED SPECIMEN / Unknown 04/20/2023 11:55 AM CDT 04/20/2023 12:08 PM CDT Sravani [facility] COAGULATION ORDERAB LE [facility] [address] [facility] [place] [address] * Culture-Anaerobe (04/20/2023 8:43 AM CDT) Pathologist [facility] CULT-ANAEROBE No anaerobic growth in 5 days. SCOTTY 04/25/2023 11:41 AM CDT [facility] Site-Microbiology PLEURAL FLUID SPECIMEN / Unknown 04/20/2023 8:43 AM CDT Comment:Pre-op diagnosis: Air leak [J93.82] August Tarango MD MICROBIOLOGY ORDERAB LE Performing Organization Address City/[facility]/ZIP Co de Phone Number [facility] [address] [place] [address] * Culture-Aerobic (04/20/2023 8:43 AM CDT) Pathologist [facility] Aerobic Culture No growth 48 hours. SCOTTY 04/22/2023 11:00 AM CDT [facility] Gram Stain Result No bacteria seen. 04/22/2023 11:00 AM CDT [facility] Gram Stain Result Many WBC's / LPF 04/22/2023 11:00 AM CDT [facility] Site-Microbiology PLEURAL FLUID SPECIMEN / Unknown 04/20/2023 8:43 AM CDT Comment:Pre-op diagnosis: Air leak [J93.82] August Tarango MD MICROBIOLOGY ORDERAB LE Performing Organization Address City/[facility]/ZIP Co de Phone Number [facility] [address] [place] [address] * Surgery Olympus Video/Pics (04/20/2023 7:05 AM CDT) [facility] 04/20/2023 7:05 AM CDT August Tarango MD PROCEDURE ORDERABLE Performing Organization Address City/[facility]/ZIP Co de Phone Number [facility] [address] [place] [address] * Type & Screen (04/18/2023 8:14 AM CDT) Group and Rh B Positive 04/20/2023 11:24 AM CDT [facility] Antibody Screen Negative 04/20/2023 11:24 AM CDT [facility] Blood 04/18/2023 8:14 AM CDT 04/20/2023 10:49 AM CDT Sravani HARO BLOOD BANK ORDERABL E Performing Organization Address [facility] Co de Phone Number [facility] [address] [place] [address] [facility] [address] [place] [address] * (ABNORMAL) Gases Venous Peripheral (04/18/2023 8:14 AM CDT) pH Venous 7.37 7.30 - 7.40 04/18/2023 8:37 AM CDT [facility] O2 Sat Venous 79.4 60.0 - 80.0 % 04/18/2023 8:37 AM CDT [facility] pO2 Venous 43 35 - 45 mm Hg 04/18/2023 8:37 AM CDT [facility] Base Excess Venous 9.7(H) -3.0 - 2.0 mmol/L 04/18/2023 8:37 AM CDT [facility] PCO2 VENOUS 67(H) 36 - 51 mm Hg 04/18/2023 8:37 AM CDT [facility] HCO3 Venous 38(H) 22 - 29 mmol/L 04/18/2023 8:37 AM CDT [facility] Blood 04/18/2023 8:14 AM CDT 04/18/2023 8:27 AM CDT Sravani HARO CHEMISTRY ORDERABLE Performing Organization Address City/[facility]/ZIP Co de Phone Number [facility] [address] [place] [address] * IR SPECIAL PROCEDURES (04/17/2023 3:02 PM CDT) Anatomical Region Laterality Modality X-Ray Angiograph y 04/17/2023 5:27 PM CDT Impressions 04/17/2023 5:30 PM CDT IMPRESSION: Placement of 8 Peruvian left apical chest tube as described above. Narrative 04/17/2023 5:30 PM CDT Chest tube placement. 8 Peruvian left apical chest tube placement PROCEDURES: Left [...] advanced into the pleural space. A 10 Peruvian tube was advanced over the wire and curled within the pleural space. ??The tube were secured to the skin and dressed. ??The patient tolerated the procedure well and there were no immediate complications. ??The patient was transferred to the floor in stable condition. Procedure Note Rohan Quintero MD - 04/17/2023 Chest tube placement. 8 Peruvian left apical chest tube placement PROCEDURES: Left [...] was advancedinto the pleural space. A 10 Peruvian tube was advanced over the wire andcurled within the pleural space. The tube were secured to the skin anddressed. The patient tolerated the procedure well and there were noimmediate complications. The patient was transferred to the floor instable condition. IMPRESSION IMPRESSION: Placement of 8 Peruvian left apical chest tube as describedabove. Dhaval [...] ng/mL ATELLICA ANALYZER 04/17/2023 2:51 PM CDT [facility] Blood 04/17/2023 6:46 AM CDT 04/17/2023 7:06 AM CDT [facility] - 04/17/2023 2:51 PM CDT PROCALCITONIN [...] severe sepsis or septic shock. ? Sravani HARO CHEMISTRY ORDERABLE Performing Organization Address [facility] Co de Phone Number [facility] [address] [facility] [address] [place], [place] [address] * High-Sensitivity Troponin I (TNIH) (04/17/2023 6:46 AM CDT) [facility] HIGH-SENSITIVI TY TROPONIN I 10 <=53 ng/L ATELLICA ANALYZER 04/17/2023 7:37 AM CDT [facility] Blood 04/17/2023 6:46 AM CDT 04/17/2023 7:06 AM CDT Pauline Rangel DO CHEMISTRY ORDERABLE Performing Organization Address [facility] de Phone Number [facility] [address] [facility] [place] [address] * (ABNORMAL) Basic Metabolic Profile (04/16/2023 6:56 AM CDT) Only the most recent of2 resultswithin the time period is included. [facility] Sodium 139 136 - 145 mmol/L ATELLICA ANALYZER 04/16/2023 7:46 AM CDT [facility] Potassium 4.3 3.4 - 5.1 mmol/L ATELLICA ANALYZER 04/16/2023 7:46 AM CDT [facility] Chloride 100 98 - 108 mmol/L ATELLICA ANALYZER 04/16/2023 7:46 AM CDT [facility] Carbon Dioxide 36(H) 20 - 31 mmol/L ATELLICA ANALYZER 04/16/2023 7:46 AM CDT [facility] BUN (Urea Nitro) 15 9 - 23 mg/dL ATELLICA ANALYZER 04/16/2023 7:46 AM CDT [facility] Creatinine 0.90 0.60 - 1.10 mg/dL ATELLICA ANALYZER 04/16/2023 7:46 AM CDT [facility] Est GFR (CKD-EPI) >60.00 >60.00 mL/min/1. 73m2 ATELLICA ANALYZER 04/16/2023 7:46 AM CDT [facility] Comment:Calculation based on the Chronic Kidney Disease Epidemiology Collaboration (CKD-EPI) equation refit without adjustment for race. Glucose 112(H) 74 - 106 mg/dL ATELLICA ANALYZER 04/16/2023 7:46 AM CDT [facility] Calcium, Serum 9.6 8.7 - 10.4 mg/dL ATELLICA ANALYZER 04/16/2023 7:46 AM T [facility] Anion Gap 3.0 0.0 - 15.0 mmol/L ATELLICA ANALYZER 04/16/2023 7:46 AM T [facility] Blood Line - Mixed Venous / Unknown 04/16/2023 6:56 AM CDT 04/16/2023 7:14 AM CDT Emilee Griggs MD CHEMISTRY ORDERA BLE Performing Organization Address City/State/[facility] Co de Phone Number [facility] [address] [place] [address] * COVID-19 (PUI) (04/15/2023 7:14 AM CDT) SARS-CoV-2 by PCR Negative for SARS-CoV-2 RNA by PCR Negative for SARS-CoV-2 RNA by PCR CEPHEID INFINITY ANALYZER 04/15/2023 7:47 AM CDT [facility] Nasopharynx 04/15/2023 7:14 AM CDT 04/15/2023 7:14 AM CDT Hailee Angulo MD MICROBIOLOGY ORDERAB LE Performing Organization Address [facility] de Phone Number [facility] [address] [place] [address] * Extra Tube PST (Lab Use Only) (04/15/2023 6:55 AM CDT) Blood 04/15/2023 6:55 AM CDT 04/15/2023 7:00 AM CDT Hailee Angulo MD CHEMISTRY ORDERABLE Performing Organization Address [facility] Phone Number [facility] [address] [place] [address] * Extra Tube-SST (Lab Use Only) (04/15/2023 6:55 AM CDT) Blood 04/15/2023 6:55 AM CDT 04/15/2023 7:03 AM CDT Hailee Angulo MD CHEMISTRY ORDERABLE Performing Organization Address [facility] de Phone Number [facility] [address] [place] [address] * Extra Tube-Blood Bank (Lab Use Only) (04/15/2023 6:55 AM CDT) Blood 04/15/2023 6:55 AM CDT 04/15/2023 6:58 AM CDT Hailee Angulo MD BLOOD BANK ORDERABLE Performing Organization Address [facility] de Phone Number [facility] [address] [place] [address] * (ABNORMAL) LFTs (04/15/2023 6:55 AM CDT) ALT <9 7 - 40 U/L ATELLICA ANALYZER 04/15/2023 7:32 AM CDT [facility] Alkaline Phosphatase 85 46 - 116 U/L ATELLICA ANALYZER 04/15/2023 7:32 AM CDT [facility] AST (SGOT) 8(L) 13 - 40 U/L ATELLICA ANALYZER 04/15/2023 7:32 AM CDT [facility] Protein Total 6.6 5.7 - 8.2 g/dL ATELLICA ANALYZER 04/15/2023 7:32 AM CDT [facility] Albumin 3.7 3.4 - 5.0 g/dL ATELLICA ANALYZER 04/15/2023 7:32 AM CDT [facility] BILIRUBIN-DIRECT 0.11 <0.40 mg/dL ATELLICA ANALYZER 04/15/2023 7:32 AM CDT [facility] Bilirubin-Total 0.3 0.3 - 1.2 mg/dL ATELLICA ANALYZER 04/15/2023 7:32 AM CDT [facility] Blood 04/15/2023 6:55 AM CDT 04/15/2023 7:00 AM CDT Hailee Angulo MD CHEMISTRY ORDERABLE [facility] [address] [address] * POCT Chloride (04/15/2023 6:48 AM CDT) POCT CHLORIDE 100 99 - 111 mmol/L 04/15/2023 6:51 AM CDT [facility] 04/15/2023 6:48 AM CDT 04/15/2023 6:51 AM CDT Hailee Angulo MD LAB POINT OF CARE TE ST RESULTS [facility] [address] [place] [address] * POCT CREATININE (04/15/2023 6:48 AM CDT) POCT Creatinine 0.8 0.7 - 1.3 mg/dL 04/15/2023 6:51 AM CDT [facility] 04/15/2023 6:48 AM CDT 04/15/2023 6:51 AM CDT Hailee Angulo MD LAB POINT OF CARE TE ST RESULTS Performing Organization Address [facility] Co de Phone Number [facility] [address] [place] [address] * POCT Lac (04/15/2023 6:48 AM CDT) POCT LACTIC ACID 0.8 0.7 - 2.1 mmol/L 04/15/2023 6:51 AM CDT [facility] 04/15/2023 6:48 AM CDT 04/15/2023 6:51 AM CDT Hailee Angulo MD LAB POINT OF CARE TE ST RESULTS Performing Organization Address [facility] Co de Phone Number [facility] [address] [place] [address] * POCT Ca, Ionized (04/15/2023 6:48 AM CDT) POCT CA IONIZED 1.23 1.13 - 1.32 mmol/L 04/15/2023 6:51 AM CDT [facility] 04/15/2023 6:48 AM CDT 04/15/2023 6:51 AM CDT Hailee Angulo MD LAB POINT OF CARE TE ST RESULTS Performing Organization Address [facility] de Phone Number [facility] [address] [place] [address] * (ABNORMAL) POCT VBG/Na/K/Glu (04/15/2023 6:48 AM CDT) POCT pH Venous 7.25(L) 7.30 - 7.40 04/15/2023 6:51 AM T [facility] POCT pCO2 Venous 86(HH) 36 - 51 mm Hg 04/15/2023 6:51 AM T [facility] POCT pO2 Venous 23(L) 35 - 45 mm Hg 04/15/2023 6:51 AM T [facility] POCT HCO3 VENOUS 38(H) 22 - 29 mmol/L 04/15/2023 6:51 AM T [facility] POCT BASE EXCESS 6.6(H) -3.0 - 2.0 mmol/L 04/15/2023 6:51 AM T [facility] POCT CSO2 27.8(L) 92.0 - 98.0 %SAT 04/15/2023 6:51 AM T [facility] POCT cTCO2 40.2 mmol/L 04/15/2023 6:51 AM T [facility] POCT SODIUM 141 133 - 144 mmol/L 04/15/2023 6:51 AM T [facility] POCT POTASSIUM 4.7 3.5 - 5.0 mmol/L 04/15/2023 6:51 AM T [facility] POCT Glucose 114(H) 60 - 100 mg/dL 04/15/2023 6:51 AM [facility] 04/15/2023 6:48 AM CDT 04/15/2023 6:51 AM CDT Hailee Angulo MD LAB POINT OF CARE TE ST RESULTS Performing Organization Address [facility] de Phone Number [facility] [address] [place] [address] documented in this encounter Visit Diagnoses Diagnosis Spontaneous pneumothorax- Primary Other pneumothorax Spontaneous tension pneumothorax COPD exacerbation (HCC) Obstructive chronic bronchitis with exacerbation Spontaneous pneumothorax Other pneumothorax Air leak Other air leak Air leak Other air leak Spontaneous tension pneumothorax documented in this encounter Admitting Diagnoses Diagnosis Spontaneous pneumothorax Other pneumothorax documented in this encounter Administered Medications Inactive Administered Medications - up to 3 most recent administrations Medication Order MAR Action Action Date Dose Rate Site saline FLUSH syringe 10 mL 10 mL, Intravenous, EVERY 8 HOURS, First dose on 04/15/23 at 1400, Until Discontinued Given 04/27/2023 9:00 PM CDT 10 mL Given 04/27/2023 3:20 PM CDT 10 mL Given 04/27/2023 5:06 AM CDT 10 mL saline FLUSH syringe 10 mL 10 mL, Intravenous, NEEDED, Starting on 04/15/23 at 1012, Until Mon04/28/23 at 1938, Line Care Given 04/26/2023 8:43 AM CDT 10 mL Given 04/25/2023 6:43 AM CDT 10 mL Given 04/25/2023 3:04 AM CDT 10 mL acetaminophen (TYLENOL) tablet 500-1,000 mg 500-1,000 mg [...] Given 04/27/2023 8:00 PM CDT 3 mL fluticasone 100 mcg-vilanterol 25 mcg (BREO) inhaler 1 Inhalation 1 Inhalation , Inhalation, DAILY, First dose on Mon04/17/23 at 1130, Until Discontinued Given 04/28/2023 8:27 AM CDT 1 Inhalation Given 04/27/2023 7:02 AM CDT 1 Inhalation Given 04/26/2023 8:02 AM CDT 1 Inhalation lidocaine 1% injection (conc: 10 mg/mL) 0.1-0.3 [...] 8:01 AM CDT 1 patch Other (Comment) melatonin tablet 3 mg 3 mg, oral, AT BEDTIME, First dose on Mon04/16/23 at 0300, Until Discontinued Given 04/27/2023 9:00 PM CDT 3 mg Given 04/26/2023 9:16 PM CDT 3 mg Given 04/25/2023 10:19 PM CDT 3 mg methocarbamoL (ROBAXIN) tablet 750 mg 750 mg, oral, FOUR TIMES A DAY, First dose (after last modification) on 04/22/23 at 1800, Until Discontinued Given 04/28/2023 12:29 PM CDT 750 mg Given 04/28/2023 8:27 AM CDT 750 mg Given 04/27/2023 9:00 PM CDT 750 mg MORphine injection (conc: 2 mg/mL) 1-2 [...] 8 mg oxyCODONE (immediate release) (ROXICODONE) tablet 5-10 mg 5-10 mg, oral, EVERY 6 HOURS NEEDED, Starting on Mon04/20/23 at 1749, Until Mon04/28/23 at 1938, Breakthrough [...] Given 04/26/2023 8:01 AM CDT 40 mg polyethylene glycol (MIRALAX) packet [...] AM CDT 40 mg senna-docusate (SENNA-S) tablet 2 tablet 2 tablet, [...] Given 04/27/2023 9:00 PM CDT 80 mg talc-zinc oxide (CALDESENE PROTECTING POWDER) powder INTRA-PROCEDURE NEEDED, Starting on Angela 04/20/23 at 0855, Until Angela 04/20/23 at 0937, Intra-Op Given 04/20/2023 8:55 AM CDT 4 g talc-zinc oxide (CALDESENE PROTECTING POWDER) powder INTRA-PROCEDURE NEEDED, Starting on Angela 04/20/23 at 0855, Until Angela 04/20/23 at 0937, Intra-Op Given 04/20/2023 8:55 AM CDT 4 g documented in this encounter Active and Recently [...] RN) 0600 (Declined - Provider: Verito Pereira, RN) albuterol-ipratropium (conc: 3-0.5mg/3mL) (DUO-NEB) nebulizer solution 3 [...] Linh Chowdary, RT)1529 (Given - Provider: Linh Chowdary, RT)2000 (Given - Provider: Kelsie Esparza, RT) 0724 (Given - Provider: Kiki Estrada, RT)1110 (Given - Provider: Tesha Wei) fluticasone 100 mcg-vilanterol 25 mcg (BREO) inhaler 1 Inhalation 1 Inhalation , Inhalation, DAILY, First dose on Mon04/17/23 at 1130, Until Discontinued 08 (Given - Provider: April Freitas RN) 07 (Given - Provider: Sarah Terry, RN) 08 (Given - Provider: Tani Castañeda RN) lidocaine 4% (Salonpas) adhesive patch, medicated 1 patch 1 patch, Transdermal, DAILY, First dose on Mon04/21/23 at 1045, Until Discontinued 08 (Patch Applied - Provider: April Freitas RN - Comment: LL chest)2000 (Patch Removed - Provider: Verito Pereira RN) 075 (Patch Applied - Provider: Tani Castañeda RN)181 (Patch Removed - Provider: Verito Pereira RN) 08 (Patch Applied - Provider: Tani Castañeda RN)2026 (Due: Patch Removed - Provider: Tani Castañeda [...] Discontinued 08 (Given - Provider: April Freitas RN)1232 (Given - Provider: April Freitas RN)1700 (Given - Provider: Verito Pereira RN)211 (Given - Provider: Verito Pereira RN) 075 (Given - Provider: Tani Castañeda RN)115 (Given - Provider: Tani Castañeda RN)172 (Given - Provider: Verito Pereira RN)2099 (Given - Provider: Verito Pereira RN) 08 (Given - Provider: Tani Castañeda RN)122 (Given - Provider: Tani Castañeda RN) pantoprazole (PROTONIX) delayed release tablet 40 mg 40 mg, oral, DAILY, First dose on Mon04/26/23 at 0800, Until Discontinued 0801 (Given - Provider: April Freitas RN) 0751 (Given - Provider: Tani Castañeda RN) 0827 (Given - Provider: Tani Castañeda, ALESSANDRA) predniSONE (DELTASONE) tablet 40 mg 40 mg, oral, DAILY, 5 doses, First dose on Angela 04/27/23 at 1000, Last dose on Mon05/01/23 at 0800 1020 (Given - Provider: Tani Castañeda RN) 0827 (Given - Provider: Tani Castañeda, ALESSANDRA) senna-docusate (SENNA-S) tablet 2 tablet 2 tablet, oral, TWICE A DAY, First dose (after last modification) on 04/22/23 at 2000, Until Discontinued 0801 (Given - Provider: April Freitas RN)1928 (Given - Provider: Verito Pereira RN) 075 (Given - Provider: Tani Castañeda RN)1999 (Declined [...] Freitas RN)1657 (Given - Provider: Verito Pereira RN)2115 (Given - Provider: Verito Pereira, ALESSANDRA) 0751 (Given - Provider: Tani Castañeda, ALESSANDRA)1151 (Given - Provider: Tani Castañeda, ALESSANDRA)1722 (Given - Provider: Verito Pereira RN)2100 (Given - Provider: Verito Pereira, ALESSANDRA) 08 (Given - Provider: Tani Castañeda, ALESSANDRA)1229 (Given - Provider: Tani Castañeda, RN) PRN Medication Order 04/26/2023 04/27/2023 04/28/2023 saline FLUSH syringe 10 mL 10 mL, Intravenous, NEEDED, Starting on 04/15/23 at 1012, Until Mon04/28/23 at 1938, Line Care 0843 (Given - Provider: April Freitas, RN) acetaminophen (TYLENOL) tablet 500-1,000 mg 500-1,000 mg (1-2 tablet), oral, EVERY 6 HOURS NEEDED, Starting on Mon04/21/23 at 2325, Until Mon04/28/23 at 1938, fever, pain 0801 (Given - Provider: April Freitas, RN)1657 (Given - Provider: Verito Pereira, ALESSANDRA) HYDROmorphone (DILAUDID) syringe 0.2-0.5 mg (CANCELED) 0.2-0.5 mg, Intravenous, EVERY 1 HOUR NEEDED, Starting on Angela 04/20/23 at 1117, Until 04/26/23 at 1329, Pain, if oral opioid not effective or tolerated 0843 (Given - Provider: April Freitas, ALESSANDRA) ketorolac (ToradoL) injection 15 mg () 15 mg, Intravenous, EVERY 8 HOURS NEEDED, Starting on 04/22/23 at 0903, Until Angela 04/27/23 at 0902, pain, Maximum duration of treatment is 5 days. 1231 (Given - Provider: April Freitas, RN) lidocaine (LMX-4) topical cream 1 Application [...] pain 0650 (Given - Provider: Sarah Terry, RN) ondansetron (ZOFRAN) disintegrating tablet 4-8 mg(Linked Group [...] Schwartz, ALESSANDRA)0800 (Given - Provider: April Freitas, RN)1932 (Given - Provider: Verito Pereira, ALESSANDRA) polyethylene [...] documented as of this encounter Care Teams Seedling Sorter Relationship Specialty Start Date End Date Clinic, No Primary PCP - [facility] 04/15/23 Rohan Saldaña MD [address] [place] [address] PCP - General 04/17/23 documented as of this encounter
[2023-09-28 10:38] LABS: Basophils Absolute Auto 0.05 K/uL (0.00-0.30); Basophils Percent Auto 0.6 % (0.0-3.0); Eosinophils Absolute Auto 0.38 K/uL (0.00-0.50); Eosinophils Percent Auto 4.3 % (0.0-7.0); Hematocrit 43.3 % (37.0-53.0); Hemoglobin* 14.1 gm/dL (13.5-17.5); Immature Granulocytes Abs Auto 0.04 K/uL (0.00-0.30); Immature Granulocytes Pct Auto 0.5 %; Lymphocytes Percent Auto 5.6 % (20-44); Mean Corpuscular HGB Conc 33 gm/dL (32-36); Mean Corpuscular Hemoglobin 28 pg (26-34); Mean Corpuscular Volume 87 fL (80-100); Monocytes Percent Auto 13.5 % (0.0-11.0); Neutrophils Percent Auto 75.5 % (42.0-72.0); Platelet Count* 275 K/uL (140-440); RDW Coefficient of Variation % 12.2 % (11.5-15.5); Red Blood Count 4.97 m/uL (4.30-5.90); White Blood Count* 8.86 K/uL (4.50-11.00)
[2023-09-28 10:43] LABS: Slide Review Reflex No
[2023-09-28 11:04] LABS: Albumin* 4.7 g/dL (3.3-5.0); Chloride* 101 mmol/L (96-114); Potassium* 4.3 mmol/L (3.6-5.1); Sodium* 140 mmol/L (135-149)
[2023-09-28 11:06] LABS: Creatinine* 0.7 mg/dL (0.5-1.5); Est. Creatinine Clearance* 133.95; Estimated Glomerular Filt Rate 110 ml/min; Magnesium* 1.7 mg/dL (1.5-2.6)
[2023-09-28 11:07] LABS: Alanine Aminotransferase* 17 U/L (4-50); Alkaline Phosphatase* 76 U/L (40-150); Anion Gap 6 mEq/L (7-15); Aspartate Amino Transferase* 24 U/L (12-35); Bilirubin Total* 0.4 mg/dL (0.1-1.5); Blood Urea Nitrogen* 18 mg/dL (7-30); Calcium* 9.6 mg/dL (8.4-10.6); Carbon Dioxide* 33 mmol/L (20-32); Glucose* 129 mg/dL (60-115); Total Protein* 7.7 g/dL (6.0-8.3)
[2023-09-28 11:15] LABS: NT Pro B Type NatriureticPept* 58 pg/mL
--- NOTE | 2023-09-28 11:18 | ED.CHESTPAIN ---
HPI - Chest Pain General Date Seen: 09/28/23 Chief Complaint: Chest Pain Stated Complaint: Chest pain Time Seen by Provider: 09/28/23 10:05 Source: patient Mode of arrival: ambulatory Limitations: no limitations History of Present Illness HPI narrative: Patient is a 53-year-old male with history of COPD, DVTs, chronic oxygen of 4 L presenting to emergency department for chest pain. States since last night he has been having a sensation of chest pressure as if someone is sitting on his chest. Symptoms have not been improving so we came concerning came to the emergency department. He still occasionally smokes cigarettes but is still smoking marijuana. Has been using his home breathing treatments and he states he does not feel wheezy or that this is COPD related. Does states been coughing up a watery phlegm. Denies fevers, chills, headache, abdominal pain, nausea/vomiting. Does states that symptoms like this a few months ago but they were very brief. No history of heart disease or kidney problems. Does state have a pneumothorax in the past a few months ago. Does have some fatigue right now. Not aware if he has been around any sick contacts. Related Data Previous Rx's Medication Instructions Recorded Home Oxygen #1 ea 09/07/22 albuterol sulfate 90 mcg/actuation 2 inh inhalation Q4-6H PRN 09/25/23 aerosol inhaler shortness of breath or wheezing #6.7 grams fluticasone fur. 100 mcg-umeclid 1 inh inhalation DAILY #60 ea 09/25/23 62.5 mcg-vilant 25 mcg inhalat.powder (Trelegy Ellipta) Allergies Allergy/AdvReac Type Severity Reaction Status Date / Time No Known Drug Allergies Allergy Verified 09/25/23 12:38 [facility] Medical History Encounter for pre-operative examination ?Z01.818 - Encounter for other preprocedural examination (ICD-10) Recurrent deep vein thrombosis (DVT) ?I82.409 - Acute embolism and thrombosis of unspecified deep veins of unspecified lower extremity (ICD-10) Oxygen dependent ?Z99.81 - Dependence on supplemental oxygen (ICD-10) Former smoker ?Z87.891 - Personal history of nicotine dependence (ICD-10) COPD (chronic obstructive pulmonary disease) ?J44.9 - Chronic obstructive pulmonary disease, unspecified (ICD-10) Acute and chronic respiratory failure with hypoxia ?J96.21 - Acute and chronic respiratory failure with hypoxia (ICD-10) Surgical History H/O lumbar discectomy ?Z98.890 - Other specified postprocedural states (ICD-10) Social History Highest level of school completed/degree received: 12th grade, no diploma Smoking Status: Former smoker What tobacco products do you use: cigarettes Smoking quit date/years: <= 15 years ago Do you use any of these nicotine containing products: None Second hand tobacco smoke exposure: No How often do you have a drink containing alcohol: never How often do you have six or more drinks on one occasion: Never AUDIT-C Alcohol total score: 0 Non-prescribed substance use: marijuana (any form) Caffeine: Yes Little interest or pleasure in doing things: not at all Feeling down, depressed, or hopeless: not at all service: No Exam Const Vital Signs, click to edit/add: Vital Signs - 24 hr 09/28/23 09:58 09/28/23 10:05 09/28/23 10:06 Temperature 99.8 F H Pulse Rate 122 H 120 H Pulse Rate [Pulse Oximeter] 135 H Respiratory Rate 24 Blood Pressure 116/94 H Blood Pressure [Right Upper Arm] 150/103 H Pulse Oximetry 95 94 94 Oxygen Delivery Method Nasal Cannula Oxygen Flow Rate 4 09/28/23 10:15 09/28/23 10:30 09/28/23 10:31 Temperature Pulse Rate 124 H 118 H 117 H Pulse Rate [Pulse Oximeter] Respiratory Rate Blood Pressure 113/90 H Blood Pressure [Right Upper Arm] Pulse Oximetry 95 96 96 Oxygen Delivery Method Oxygen Flow Rate 09/28/23 10:45 09/28/23 11:00 09/28/23 11:01 Temperature Pulse Rate 123 H 114 H 118 H Pulse Rate [Pulse Oximeter] Respiratory Rate Blood Pressure 112/94 H Blood Pressure [Right Upper Arm] Pulse Oximetry 96 96 97 Oxygen Delivery Method Oxygen Flow Rate 09/28/23 11:15 09/28/23 11:30 09/28/23 11:31 Temperature Pulse Rate 109 H 111 H 111 H Pulse Rate [Pulse Oximeter] Respiratory Rate Blood Pressure 124/93 H Blood Pressure [Right Upper Arm] Pulse Oximetry 98 99 99 Oxygen Delivery Method Oxygen Flow Rate 09/28/23 11:54 09/28/23 12:00 09/28/23 12:01 Temperature Pulse Rate 122 H 104 H 107 H Pulse Rate [Pulse Oximeter] Respiratory Rate Blood Pressure 128/87 Blood Pressure [Right Upper Arm] Pulse Oximetry 95 99 99 Oxygen Delivery Method Oxygen Flow Rate 09/28/23 12:02 09/28/23 12:15 09/28/23 12:30 Temperature Pulse Rate 103 H 108 H 107 H Pulse Rate [Pulse Oximeter] Respiratory Rate Blood Pressure Blood Pressure [Right Upper Arm] Pulse Oximetry 99 99 100 Oxygen Delivery Method Oxygen Flow Rate 09/28/23 12:32 09/28/23 12:45 09/28/23 13:00 Temperature Pulse Rate 103 H 104 H 113 H Pulse Rate [Pulse Oximeter] Respiratory Rate Blood Pressure 122/82 Blood Pressure [Right Upper Arm] Pulse Oximetry 100 100 99 Oxygen Delivery Method Oxygen Flow Rate 09/28/23 13:01 09/28/23 13:15 09/28/23 13:30 Temperature Pulse Rate 112 H 121 H 116 H Pulse Rate [Pulse Oximeter] Respiratory Rate Blood Pressure 134/73 Blood Pressure [Right Upper Arm] Pulse Oximetry 100 99 99 Oxygen Delivery Method Oxygen Flow Rate 09/28/23 13:31 09/28/23 13:39 Temperature 101.4 F H Pulse Rate 119 H Pulse Rate [Pulse Oximeter] Respiratory Rate Blood Pressure 126/84 Blood Pressure [Right Upper Arm] Pulse Oximetry 99 Oxygen Delivery Method Oxygen Flow Rate Course Vital Signs Vital signs: Initial Vital Signs Temperature 99.8 F H 09/28/23 09:58 Temperature Source Temporal Artery Scan 09/28/23 09:58 Pulse Rate 135 H 09/28/23 09:58 Respiratory Rate 24 09/28/23 09:58 Blood Pressure 150/103 H 09/28/23 09:58 Blood Pressure Mean 118 H 09/28/23 09:58 Blood Pressure Position High-Fowlers 09/28/23 09:58 Pulse Oximetry 95 09/28/23 09:58 Oxygen Delivery Method Nasal Cannula 09/28/23 09:58 Oxygen Flow Rate 4 09/28/23 09:58 Vital Signs Temperature 99.8 F H 09/28/23 09:58 Pulse Rate 135 H 09/28/23 09:58 Respiratory Rate 24 09/28/23 09:58 Blood Pressure 150/103 H 09/28/23 09:58 Pulse Oximetry 95 09/28/23 09:58 Oxygen Delivery Method Nasal Cannula 09/28/23 09:58 Oxygen Flow Rate 4 09/28/23 09:58 Temperature 101.4 F H 09/28/23 13:39 Pulse Rate 119 H 09/28/23 13:31 Respiratory Rate 24 09/28/23 09:58 Blood Pressure 126/84 09/28/23 13:31 Pulse Oximetry 99 09/28/23 13:31 Oxygen Delivery Method Nasal Cannula 09/28/23 09:58 Oxygen Flow Rate 4 09/28/23 09:58 Medications Administered Medications: Discontinued Medications Generic Name Dose Route Start Last Admin Trade Name Freq PRN Reason Stop Dose Admin Acetaminophen 650 mg 09/28/23 13:37 09/28/23 13:45 Acetaminophen 325 Mg Tablet PO 09/28/23 13:38 650 mg ONCE ONE Administration Lactated Ringer's 1,000 mls @ 1,000 mls/hr 09/28/23 11:28 09/28/23 12:45 Lactated Ringers 1000 Ml IV 09/28/23 12:27 Infused .Q1H ONE Infusion Methylprednisolone Sodium Succinate 125 mg 09/28/23 13:37 09/28/23 13:45 Methylprednisolone Sod Succ 62.5 Mg/Ml (125) IVP 09/28/23 13:38 125 mg ONCE ONE Administration Nitroglycerin 0.4 mg 09/28/23 11:19 09/28/23 13:03 Nitroglycerin 0.4 Mg Tab.Subl SUBLINGUAL 09/28/23 11:20 Not Given ONCE ONE MDM - Chest Pain MDM Narrative Medical decision making narrative: Patient is a 53-year-old male presenting to the emergency department for chest pressure. It describes it as a sensation as if somebody sitting on his chest. Has been going on since last night. If he has had the symptoms once before but they only lasted a short amount time he states. He is chronically on 4 L nasal cannula. Does states he feels fatigued. Will do a septic workup on this patient. We will check him for COVID/flu/RSV. D-dimer ordered for potential blood clots. Will end up doing chest imaging but waiting for D-dimer to see if CT will be with or without contrast. Lab work all returned showing no concerning abnormalities. He is COVID positive. His lactate is within normal limits. White count within normal limits. No kidney dysfunction seen. Electrolytes appear normal. COVID the likely cause all of his symptoms at this time. We do a CT scan non con as he a normal D-dimer and it returned showing no concerning acute abnormalities. He does have the chronic severe emphysema. Patient is tachycardic his entire time in the emergency department. I did do some chart review and saw his last ED visit and his last clinic visit he was tachycardic it both. Unsure if this is a coincidence or if he is chronically tachycardic. He then developed a fever and Tylenol was given. After this he developed a headache and had migraine cocktail was ordered. I did speak to Dr. Parker about this patient and he accepted him for admission. The patient was given steroids. Lab Data Labs: Lab Results 09/28/23 09/28/23 09/28/23 Range/Units 10:10 10:21 10:35 WBC 8.86 (4.50-11.00) K/uL RBC 4.97 (4.30-5.90) m/uL Hgb 14.1 (13.5-17.5) gm/dL Hct 43.3 (37.0-53.0) % MCV 87 (80-100) fL MCH 28 (26-34) pg MCHC 33 (32-36) gm/dL RDW Coeff of Edin 12.2 (11.5-15.5) % Plt Count 275 (140-440) K/uL Neut % (Auto) 75.5 H (42.0-72.0) % Lymph % (Auto) 5.6 L (20-44) % [place] % (Auto) 13.5 H (0.0-11.0) % Eos % (Auto) 4.3 (0.0-7.0) % Baso % (Auto) 0.6 (0.0-3.0) % Neut # (Auto) 6.70 (1.7-7.0) K/uL Lymph # (Auto) 0.50 L (0.90-2.90) K/uL [place] # (Auto) 1.20 H (0.00-0.90) K/UL Eos # (Auto) 0.38 (0.00-0.50) K/uL Baso # (Auto) 0.05 (0.00-0.30) K/uL Abs Immat Gran (auto) 0.04 (0.00-0.30) K/uL Imm/Tot Granulo (auto) 0.5 % D-Dimer Quant (PE/DVT) (0.00-0.50) ug/ml ABG pH (7.35-7.45) ABG pCO2 (35-45) mmHG ABG pO2 (80-105) mmHG ABG HCO3 (21-28) mmol/L ABG Total CO2 (21-30) mmol/l ABG O2 Saturation (92-100) % ABG Base Excess (-3.0-3.0) mmol/L VBG pH 7.417 (7.32-7.43) VBG pCO2 51 H (40-50) mmHG VBG pO2 60.8 H (25-47) mmHG VBG HCO3 33 H (21-28) mmol/L Carboxyhemoglobin (0.0-5.0) % Sodium 140 (135-149) mmol/L Potassium 4.3 (3.6-5.1) mmol/L Chloride 101 (96-114) mmol/L Carbon Dioxide 33 H (20-32) mmol/L Anion Gap 6 L (7-15) mEq/L BUN 18 (7-30) mg/dL Creatinine 0.7 (0.5-1.5) mg/dL Estimated Creat Clear 133.95 Estimated GFR 110 ml/min Glucose 129 H (60-115) mg/dL Lactate 1.0 (0.5-1.9) mmol/L Calcium 9.6 (8.4-10.6) mg/dL Magnesium 1.7 (1.5-2.6) mg/dL Total Bilirubin 0.4 (0.1-1.5) mg/dL AST 24 (12-35) U/L ALT 17 (4-50) U/L Alkaline Phosphatase 76 (40-150) U/L NT-Pro-B Natriuret Pep 58 pg/mL Total Protein 7.7 (6.0-8.3) g/dL Albumin 4.7 (3.3-5.0) g/dL SARS-CoV-2 (PCR) POSITIVE SARS-CoV-2 A (Negative) Influenza Type A (PCR) Negative PCR FLU A (Negative) Influenza Type B (PCR) Negative PCR FLU B (Negative) RSV (PCR) Negative PCR RSV (Negative) Lab Acknowledgement Test Added POC Creatinine 0.9 (0.6-1.3) mg/dl POC Troponin I (0.01-0.04) ng/ml 09/28/23 09/28/23 09/28/23 Range/Units 10:40 13:05 13:37 WBC (4.50-11.00) K/uL RBC (4.30-5.90) m/uL Hgb (13.5-17.5) gm/dL Hct (37.0-53.0) % MCV (80-100) fL MCH (26-34) pg MCHC (32-36) gm/dL RDW Coeff of Edin (11.5-15.5) % Plt Count (140-440) K/uL Neut % (Auto) (42.0-72.0) % Lymph % (Auto) (20-44) % [place] % (Auto) (0.0-11.0) % Eos % (Auto) (0.0-7.0) % Baso % (Auto) (0.0-3.0) % Neut # (Auto) (1.7-7.0) K/uL Lymph # (Auto) (0.90-2.90) K/uL [place] # (Auto) (0.00-0.90) K/UL Eos # (Auto) (0.00-0.50) K/uL Baso # (Auto) (0.00-0.30) K/uL Abs Immat Gran (auto) (0.00-0.30) K/uL Imm/Tot Granulo (auto) % D-Dimer Quant (PE/DVT) 0.32 (0.00-0.50) ug/ml ABG pH 7.39 (7.35-7.45) ABG pCO2 56 H (35-45) mmHG ABG pO2 74.8 L (80-105) mmHG ABG HCO3 34 H (21-28) mmol/L ABG Total CO2 31 H (21-30) mmol/l ABG O2 Saturation 96 (92-100) % ABG Base Excess 7.1 H (-3.0-3.0) mmol/L VBG pH (7.32-7.43) VBG pCO2 (40-50) mmHG VBG pO2 (25-47) mmHG VBG HCO3 (21-28) mmol/L Carboxyhemoglobin 2.5 (0.0-5.0) % Sodium (135-149) mmol/L Potassium (3.6-5.1) mmol/L Chloride (96-114) mmol/L Carbon Dioxide (20-32) mmol/L Anion Gap (7-15) mEq/L BUN (7-30) mg/dL Creatinine (0.5-1.5) mg/dL Estimated Creat Clear Estimated GFR ml/min Glucose (60-115) mg/dL Lactate (0.5-1.9) mmol/L Calcium (8.4-10.6) mg/dL Magnesium (1.5-2.6) mg/dL Total Bilirubin (0.1-1.5) mg/dL AST (12-35) U/L ALT (4-50) U/L Alkaline Phosphatase (40-150) U/L NT-Pro-B Natriuret Pep pg/mL Total Protein (6.0-8.3) g/dL Albumin (3.3-5.0) g/dL SARS-CoV-2 (PCR) (Negative) Influenza Type A (PCR) (Negative) Influenza Type B (PCR) (Negative) RSV (PCR) (Negative) Lab Acknowledgement Test Added POC Creatinine (0.6-1.3) mg/dl POC Troponin I 0.00 L (0.01-0.04) ng/ml Imaging Data CT scan chest: Radiologist's impression: Severe pulmonary emphysema with persistent bulla in the lingula. No acute intrathoracic abnormality, including focal consolidations. Please note that all CT scans at this facility use dose modulation, iterative reconstruction, and/or weight-based dosing when appropriate to reduce radiation dose to as low as reasonably achievable. Dictated by Bipin Oliver MD @ 09/28/2023 12:26:40 PM ECG Data Attestation: I personally reviewed and interpreted this ECG as follows: Prior ECG tracings: available for review Interpretation: Sinus tachycardia with a rate of 124 beats per minute, normal intervals, normal axis, no ST-T abnormalities. Some T-waves hard to identify due to artifact advanced CMP T-wave abnormalities Discharge Plan Discharge Clinical Impression: COVID COPD (chronic obstructive pulmonary disease) Qualifiers: COPD type: unspecified COPD Qualified Code(s): J44.9 - Chronic obstructive pulmonary disease, unspecified Patient Disposition: Admitted As Observation Discharge Location: [facility] Condition: Stable Prescriptions: No Action Trelegy Ellipta 100-62.5-25 mcg blister with device 1 inh inhalation DAILY Qty: 60 11RF albuterol sulfate 90 mcg/actuation HFA aerosol inhaler 2 inh inhalation Q4-6H PRN (Reason: shortness of breath or wheezing) Qty: 6.7 12RF (DME) Home Oxygen Misc See Rx Instructions .Route Qty: 1 0RF Rx Instructions: As directed Follow Up/Referrals: Rohan Saldaña MD [Primary Care Provider] -
[2023-09-28 11:19] LABS: PCR FLU A Negative PCR FLU A (Negative); PCR FLU B Negative PCR FLU B (Negative); PCR RSV Negative PCR RSV (Negative); SARS PCR* POSITIVE SARS-CoV-2 (Negative)
[2023-09-28 11:26] LABS: D Dimer Quantitative* 0.32 ug/ml (0.00-0.50)
--- NOTE | 2023-09-28 11:29 | CRLHL7_ITS ---
For Patients: As a result of the Century Cures Act, medical imaging exams and procedure reports are released immediately into your electronic medical record. You may view this report before your referring provider. If you have questions, please contact your health care provider. INDICATION: Chest pain. Shortness of breath. TECHNIQUE: CT chest without contrast. COMPARISON: September 02, 2022. FINDINGS: Lungs and pleura: Severe pulmonary emphysema with persistent bulla in the lingula. Stable tiny right upper lobe pulmonary nodule (series 3/image 17) no suspicious nodules or infiltrates. No pleural effusions, pleural thickening, or pneumothorax. Heart and vasculature: Heart size is normal. Thoracic aorta and pulmonary artery are normal in caliber. Lymph nodes/mediastinum: No mediastinal, hilar, or axillary adenopathy. Chest wall: No masses. Upper abdomen: No significant findings. Bones: Unremarkable for age. IMPRESSION: Severe pulmonary emphysema with persistent bulla in the lingula. No acute intrathoracic abnormality, including focal consolidations. Please note that all CT scans at this facility use dose modulation, iterative reconstruction, and/or weight-based dosing when appropriate to reduce radiation dose to as low as reasonably achievable. Dictated by Bipin Oliver MD @ 09/28/2023 12:26:40 PM (Electronically Signed)
[2023-09-28] MEDS: LACTATED RINGERS 1000 ML 1,000 ML IV ×2 (11:35→14:41)
[2023-09-28] MEDS: ACETAMINOPHEN 325 MG TABLET 650 MG PO ×2 (13:45→20:48)
[2023-09-28] MEDS: METHYLPREDNISOLONE SOD SUCC 62.5 MG/ML (125) 125 MG IVP (13:45)
[2023-09-28 13:57] LABS: HCO3 VBG 33 mmol/L (21-28); PCO2 VBG 51 mmHG (40-50); PO2 VBG 60.8 mmHG (25-47); pH VBG 7.417 (7.32-7.43)
--- NOTE | 2023-09-28 14:00 | ED.NURSE ---
pt reporting a headache and congestion now
[2023-09-28 14:22] LABS: ABG PCO2 56 mmHG (35-45); Base Excess ABG 7.1 mmol/L (-3.0-3.0); Carboxyhemoglobin* 2.5 % (0.0-5.0); HCO3 ABG 34 mmol/L (21-28); Oxygen Saturation ABG 96 % (92-100); PO2 ABG 74.8 mmHG (80-105); TCO2 ABG 31 mmol/l (21-30); pH ABG 7.39 (7.35-7.45)
[2023-09-28] MEDS: KETOROLAC 15 MG/ML inj IVP (14:43)
[2023-09-28] MEDS: diphenhydrAMINE 50 MG/ML inj 25 MG IVP (14:45)
[2023-09-28] MEDS: METOCLOPRAMIDE HCL 5 MG/ML INJ 10 MG IVP (14:50)
--- NOTE | 2023-09-28 15:09 | P.IMHP_ITS ---
Hospitalist- H&P: HPI History of Present Illness Date Seen: 09/28/23 Chief complaint: Chest pain Narrative: Carl Prasad is a 53 year old male with end-stage oxygen dependent COPD presents to the emergency room with onset last night of lightheadedness, chest pain, cough, sinus congestion, headache and fever. Yesterday during the day he was feeling fine. In the emergency department today he tested positive for COVID. He received the 1st 2 vaccines for COVID early in the pandemic and has not been vaccinated since that time. He did get a flu vaccine this year He has end-stage COPD. He is on oxygen 4 L per nasal cannula chronically. He is pending an appointment at [place] for lung transplant. Review of Systems Narrative: In addition to his symptoms listed above he reports fatigue malaise poor appetite. Cough is productive of a clear sputum. No bowel or bladder problems. [facility] Medical History Encounter for pre-operative examination ?Z01.818 - Encounter for other preprocedural examination (ICD-10) Recurrent deep vein thrombosis (DVT) ?I82.409 - Acute embolism and thrombosis of unspecified deep veins of unspecified lower extremity (ICD-10) Oxygen dependent ?Z99.81 - Dependence on supplemental oxygen (ICD-10) Former smoker ?Z87.891 - Personal history of nicotine dependence (ICD-10) COPD (chronic obstructive pulmonary disease) ?J44.9 - Chronic obstructive pulmonary disease, unspecified (ICD-10) Acute and chronic respiratory failure with hypoxia ?J96.21 - Acute and chronic respiratory failure with hypoxia (ICD-10) Surgical History H/O lumbar discectomy ?Z98.890 - Other specified postprocedural states (ICD-10) Social History (Updated 09/28/23 @ 15:13 by Han Parker MD) Narrative: He lives alone in [place]. His sister, Yelitza Sheikh, is healthcare power of x ray equipment mechanic. Code status is full. He occasionally smokes a cigarette, about once a week. He smokes marijuana about once a day. Does not drink alcohol. He is disabled Highest level of school completed/degree received: 12th grade, no diploma Smoking Status: Former smoker What tobacco products do you use: cigarettes Smoking quit date/years: <= 15 years ago Do you use any of these nicotine containing products: None Second hand tobacco smoke exposure: No How often do you have a drink containing alcohol: never How often do you have six or more drinks on one occasion: Never AUDIT-C Alcohol total score: 0 Non-prescribed substance use: marijuana (any form) Caffeine: Yes Little interest or pleasure in doing things: not at all Feeling down, depressed, or hopeless: not at all service: No Meds Home Medications and Allergies Home Medication Comments: Trelegy inhaler daily and albuterol inhaler p.r.n. Allergies Allergy/AdvReac Type Severity Reaction Status Date / Time No Known Drug Allergies Allergy Verified 09/25/23 12:38 Exam Narrative: Exam Narrative: He is alert and appears in no distress. He gives his own history. Eyes are normal. Oropharynx normal. Neck is supple without mass or adenopathy. Respirations with mild increased work of breathing. He has marked decreased breath sounds in all lung pulido. No obvious wheezing crackles or consolidation. Heart sounds are very distant, S1, S2, regular rate and rhythm. Abdomen is soft without tenderness or mass. Bowel sounds are present. Extremities without edema. Pedal pulses are present but markedly diminished. Feet are somewhat cool to touch. Const: Vital Signs, click to edit/add: Vital Signs - 24 hr 09/28/23 09:58 09/28/23 10:05 09/28/23 10:06 Temperature 99.8 F H Pulse Rate 122 H 120 H Pulse Rate [Pulse Oximeter] 135 H Respiratory Rate 24 Blood Pressure 116/94 H Blood Pressure [Ri ght Upper Arm] 150/103 H Pulse Oximetry 95 94 94 Oxygen Delivery Me thod Nasal Cannula Oxygen Flow Rate 4 09/28/23 10:15 09/28/23 10:30 09/28/23 10:31 Temperature Pulse Rate 124 H 118 H 117 H Pulse Rate [Pulse Oximeter] Respiratory Rate Blood Pressure 113/90 H Blood Pressure [Ri ght Upper Arm] Pulse Oximetry 95 96 96 Oxygen Delivery Me thod Oxygen Flow Rate 09/28/23 10:45 09/28/23 11:00 09/28/23 11:01 Temperature Pulse Rate 123 H 114 H 118 H Pulse Rate [Pulse Oximeter] Respiratory Rate Blood Pressure 112/94 H Blood Pressure [Ri ght Upper Arm] Pulse Oximetry 96 96 97 Oxygen Delivery Me thod Oxygen Flow Rate 09/28/23 11:15 09/28/23 11:30 09/28/23 11:31 Temperature Pulse Rate 109 H 111 H 111 H Pulse Rate [Pulse Oximeter] Respiratory Rate Blood Pressure 124/93 H Blood Pressure [Ri ght Upper Arm] Pulse Oximetry 98 99 99 Oxygen Delivery Me thod Oxygen Flow Rate 09/28/23 11:54 09/28/23 12:00 09/28/23 12:01 Temperature Pulse Rate 122 H 104 H 107 H Pulse Rate [Pulse Oximeter] Respiratory Rate Blood Pressure 128/87 Blood Pressure [Ri ght Upper Arm] Pulse Oximetry 95 99 99 Oxygen Delivery Me thod Oxygen Flow Rate 09/28/23 12:02 09/28/23 12:15 09/28/23 12:30 Temperature Pulse Rate 103 H 108 H 107 H Pulse Rate [Pulse Oximeter] Respiratory Rate Blood Pressure Blood Pressure [Ri ght Upper Arm] Pulse Oximetry 99 99 100 Oxygen Delivery Me thod Oxygen Flow Rate 09/28/23 12:32 09/28/23 12:45 09/28/23 13:00 Temperature Pulse Rate 103 H 104 H 113 H Pulse Rate [Pulse Oximeter] Respiratory Rate Blood Pressure 122/82 Blood Pressure [Ri ght Upper Arm] Pulse Oximetry 100 100 99 Oxygen Delivery Me thod Oxygen Flow Rate 09/28/23 13:01 09/28/23 13:15 09/28/23 13:30 Temperature Pulse Rate 112 H 121 H 116 H Pulse Rate [Pulse Oximeter] Respiratory Rate Blood Pressure 134/73 Blood Pressure [Ri ght Upper Arm] Pulse Oximetry 100 99 99 Oxygen Delivery Me thod Oxygen Flow Rate 09/28/23 13:31 09/28/23 13:32 09/28/23 13:39 Temperature 101.4 F H Pulse Rate 119 H 115 H Pulse Rate [Pulse Oximeter] Respiratory Rate Blood Pressure 126/84 Blood Pressure [Ri ght Upper Arm] Pulse Oximetry 99 99 Oxygen Delivery Me thod Oxygen Flow Rate 09/28/23 13:45 09/28/23 14:00 09/28/23 14:01 Temperature Pulse Rate 115 H 108 H 113 H Pulse Rate [Pulse Oximeter] Respiratory Rate Blood Pressure 128/90 H Blood Pressure [Ri ght Upper Arm] Pulse Oximetry 99 98 98 Oxygen Delivery Me thod Oxygen Flow Rate 09/28/23 14:15 09/28/23 14:30 09/28/23 14:32 Temperature Pulse Rate 111 H 120 H 123 H Pulse Rate [Pulse Oximeter] Respiratory Rate Blood Pressure 113/85 Blood Pressure [Ri ght Upper Arm] Pulse Oximetry 96 95 94 Oxygen Delivery Me thod Oxygen Flow Rate 09/28/23 14:45 09/28/23 15:00 09/28/23 15:01 Temperature Pulse Rate 105 H 109 H 116 H Pulse Rate [Pulse Oximeter] Respiratory Rate Blood Pressure 122/88 Blood Pressure [Ri ght Upper Arm] Pulse Oximetry 96 97 95 Oxygen Delivery Me thod Oxygen Flow Rate 09/28/23 15:02 Temperature 100.6 F H Pulse Rate Pulse Rate [Pulse Oximeter] Respiratory Rate Blood Pressure Blood Pressure [Ri ght Upper Arm] Pulse Oximetry Oxygen Delivery Me thod Oxygen Flow Rate Documenting provider has reviewed patient's vital signs: yes Hospitalist - H&P: Result Labs Labs: Short CBC 09/28/23 Range/Units 10:10 WBC 8.86 (4.50-11.00) K/uL Hgb 14.1 (13.5-17.5) gm/dL Hct 43.3 (37.0-53.0) % Plt Count 275 (140-440) K/uL BMP 09/28/23 10:10 Sodium 140 Potassium 4.3 Chloride 101 Carbon Dioxide 33 H BUN 18 Creatinine 0.7 Glucose 129 H Calcium 9.6 Liver Function 09/28/23 Range/Units 10:10 Total Bilirubin 0.4 (0.1-1.5) mg/dL AST 24 (12-35) U/L ALT 17 (4-50) U/L Alkaline Phosphatase 76 (40-150) U/L Albumin 4.7 (3.3-5.0) g/dL Assessment and Plan Assessment and plan (1) COVID: Problem comment: Will attempt to treat with Paxlovid. Status: Acute (2) COPD (chronic obstructive pulmonary disease): Problem comment: End-stage COPD on chronic oxygen. Monitor respiratory status with current COVID. Status: Acute (3) Recurrent deep vein thrombosis (DVT): Problem comment: - history of DVT x2 and PE With COVID he is high risk for recurrent DVT/PE Status: Acute Plan Patient admitted to the hospital for monitoring and management of respiratory failure in the context of acute COVID infection. Total time spent today is 60 minutes, 40 minutes in coordination of care and discussing with patient and other providers management of COVID in the context of COPD
[2023-09-28] MEDS: SODIUM CHLORIDE 0.9 % (FLUSH) 10 ML SYRINGE 5 ML IVF (20:48)
[2023-09-28] MEDS: ENOXAPARIN 40 MG/0.4 ML INJ SUBCUT (20:48)
--- NOTE | 2023-09-28 22:44 | PC.NURSE ---
HR 90s, low 100s. On 2L NC, high 80s/low 90s. Otherwise, VSS. Headache pain of 3- relief w/ PRN tylenol. Ate 75% of dinner, drinking well. Voided x2. Last BM today, 09/28. Up independently in room. PIV in left FA- SL'd, received 1 dose remdesivir. Will continue to monitor, follow POC, and keep pt and family updated. Garima Phipps RN
[2023-09-29] VITALS (8 sets, daily range): BP systolic 106–139; BP diastolic 71–93; PULSE 70–91; RESP 14–18; TEMP 36.8–37.6; O2SAT 92–97
--- NOTE | 2023-09-29 05:44 | PC.NURSE ---
Shift note: Pt is afebrile, no c/o pain, 2L O2 via NC
[2023-09-29] MEDS: dexAMETHasone 2 MG TABLET 6 MG PO (08:58)
[2023-09-29] MEDS: SODIUM CHLORIDE 0.9 % (FLUSH) 10 ML SYRINGE 5 ML IVF ×2 (08:59→20:23)
[2023-09-29] MEDS: ACETAMINOPHEN 325 MG TABLET 650 MG PO ×2 (11:27→17:46)
--- NOTE | 2023-09-29 11:36 | PM.IMPN1 ---
Progress Note: A&P Assessment and plan (1) COVID: Problem details: -status post 1 dose of IV Remdesivir. 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 Monitor respiratory status with current COVID. Status: Acute (3) Recurrent deep vein thrombosis (DVT): Problem details: - history of DVT x2 and PE With COVID he is high risk for recurrent DVT/PE Status: Acute Subjective Date Seen: 09/29/23 Interval history: Daily Progress Note - Hospital Medicine Day #: 2 CC: Acute Covid 19 in the setting of high risk COPD patient OVERNIGHT UPDATES FROM STAFF & MED, LAB, IMAGING UPDATES -got first dose of Remdesivir last night -oral paxlovid available today -ID consulted and felt either regimen is likely ok -no worsening of his oxygen demand. -no new labs -ABG done yesterday afternoon showed a normal pH. Baseline mild CO2 retention. Objective: feels a little better Vitals: see above Lungs: Scattered wheeze Cardiac: S1S2. Disposition/Potential discharge - Likely to return to previous living situation. Today I spent 50minutes seeing the patient, reviewing Expanse and EPIC notes/diagnostics, discussing the care plan with our care time that includes social work, PT/OT, pharmacy, RT, long-term and documenting my impressions and plan in the medical record. Exam Const: Vital Signs, click to edit/add: Vital Signs - 24 hr 09/28/23 11:54 09/28/23 12:00 09/28/23 12:01 Temperature Pulse Rate 122 H 104 H 107 H Pulse Rate [Pulse Oximeter] Respiratory Rate Blood Pressure 128/87 Blood Pressure [Le ft Arm] Pulse Oximetry 95 99 99 Oxygen Delivery Me thod Oxygen Flow Rate Fraction of Inspir ed Oxygen 09/28/23 12:02 09/28/23 12:15 09/28/23 12:30 Temperature Pulse Rate 103 H 108 H 107 H Pulse Rate [Pulse Oximeter] Respiratory Rate Blood Pressure Blood Pressure [Le ft Arm] Pulse Oximetry 99 99 100 Oxygen Delivery Me thod Oxygen Flow Rate Fraction of Inspir ed Oxygen 09/28/23 12:32 09/28/23 12:45 09/28/23 13:00 Temperature Pulse Rate 103 H 104 H 113 H Pulse Rate [Pulse Oximeter] Respiratory Rate Blood Pressure 122/82 Blood Pressure [Le ft Arm] Pulse Oximetry 100 100 99 Oxygen Delivery Me thod Oxygen Flow Rate Fraction of Inspir ed Oxygen 09/28/23 13:01 09/28/23 13:15 09/28/23 13:30 Temperature Pulse Rate 112 H 121 H 116 H Pulse Rate [Pulse Oximeter] Respiratory Rate Blood Pressure 134/73 Blood Pressure [Le ft Arm] Pulse Oximetry 100 99 99 Oxygen Delivery Me thod Oxygen Flow Rate Fraction of Inspir ed Oxygen 09/28/23 13:31 09/28/23 13:32 09/28/23 13:39 Temperature 101.4 F H Pulse Rate 119 H 115 H Pulse Rate [Pulse Oximeter] Respiratory Rate Blood Pressure 126/84 Blood Pressure [Le ft Arm] Pulse Oximetry 99 99 Oxygen Delivery Me thod Oxygen Flow Rate Fraction of Inspir ed Oxygen 09/28/23 13:45 09/28/23 14:00 09/28/23 14:01 Temperature Pulse Rate 115 H 108 H 113 H Pulse Rate [Pulse Oximeter] Respiratory Rate Blood Pressure 128/90 H Blood Pressure [Le ft Arm] Pulse Oximetry 99 98 98 Oxygen Delivery Me thod Oxygen Flow Rate Fraction of Inspir ed Oxygen 09/28/23 14:12 09/28/23 14:15 09/28/23 14:30 Temperature Pulse Rate 111 H 120 H Pulse Rate [Pulse Oximeter] Respiratory Rate Blood Pressure Blood Pressure [Le ft Arm] Pulse Oximetry 96 95 Oxygen Delivery Me thod Nasal Cannula Oxygen Flow Rate Fraction of Inspir ed Oxygen 0.40 09/28/23 14:32 09/28/23 14:45 09/28/23 15:00 Temperature Pulse Rate 123 H 105 H 109 H Pulse Rate [Pulse Oximeter] Respiratory Rate Blood Pressure 113/85 Blood Pressure [Le ft Arm] Pulse Oximetry 94 96 97 Oxygen Delivery Me thod Oxygen Flow Rate Fraction of Inspir ed Oxygen 09/28/23 15:01 09/28/23 15:02 09/28/23 15:17 Temperature 100.6 F H 99.7 F H Pulse Rate 116 H Pulse Rate [Pulse Oximeter] 119 H Respiratory Rate 24 Blood Pressure 122/88 Blood Pressure [Le ft Arm] 134/88 Pulse Oximetry 95 92 Oxygen Delivery Me thod Nasal Cannula Oxygen Flow Rate 2 Fraction of Inspir ed Oxygen 09/28/23 15:40 09/28/23 19:00 09/28/23 23:00 Temperature 98.1 F Pulse Rate Pulse Rate [Pulse Oximeter] 98 98 Respiratory Rate 20 16 16 Blood Pressure Blood Pressure [Le ft Arm] 111/68 Pulse Oximetry 92 92 Oxygen Delivery Me thod Nasal Cannula Nasal Cannula Oxygen Flow Rate 2 1 Fraction of Inspir ed Oxygen 09/28/23 23:00 09/29/23 03:00 09/29/23 07:51 Temperature 98.5 F 98.5 F 99.1 F Pulse Rate Pulse Rate [Pulse Oximeter] 98 70 91 Respiratory Rate 16 18 16 Blood Pressure Blood Pressure [Le ft Arm] 94/69 109/77 106/71 Pulse Oximetry 94 97 95 Oxygen Delivery Me thod Nasal Cannula Room Air Nasal Cannula Oxygen Flow Rate 4 1 Fraction of Inspir ed Oxygen 09/29/23 07:51 09/29/23 11:23 Temperature 99.6 F Pulse Rate Pulse Rate [Pulse Oximeter] 91 91 Respiratory Rate 16 18 Blood Pressure Blood Pressure [Le ft Arm] 113/82 Pulse Oximetry 93 Oxygen Delivery Me thod Nasal Cannula Oxygen Flow Rate 1 Fraction of Inspir ed Oxygen Labs Labs: Laboratory Results - last 24 hr 09/28/23 09/28/23 09/28/23 10:10 13:05 13:37 ABG pH 7.39 ABG pCO2 56 H ABG pO2 74.8 L ABG HCO3 34 H ABG Total CO2 31 H ABG O2 Saturation 96 ABG Base Excess 7.1 H VBG pH 7.417 VBG pCO2 51 H VBG pO2 60.8 H VBG HCO3 33 H Carboxyhemoglobin 2.5 Lab Acknowledgement Test Added POC Troponin I 0.00 L
[2023-09-29] MEDS: Fluticasone-Umeclidin-Vilanter [Trelegy Ellipta] 100-62.5-25 mcg 1 EACH IH (13:49)
--- NOTE | 2023-09-29 18:23 | PC.NURSE ---
End of Shift: Patient pleasant and cooperative. Patient vitally stable, lungs course with wheezes, BS WNL, IV SL and intact. Patient independent in room. Patient on 1 L NS, with sats in mid 90's. Patient rates chest back pain 4-5/10, tylenol given x2. Patient tolerating regular diet, urinating, and had 1 BM.
[2023-09-29] MEDS: ENOXAPARIN 40 MG/0.4 ML INJ SUBCUT (20:22)
[2023-09-30 02:02] VITALS: BP 107/74; PULSE 93; RESP 18; TEMP 37; O2SAT 93
--- NOTE | 2023-09-30 05:02 | PC.NURSE ---
Pt rested well this night. Afebrile. Up IND. Pt on 1L NC with sats in the low 90s. Pt uses 4L NC at home chronically.
[2023-09-30 06:45] LABS: HCO3 VBG 35 mmol/L (21-28); PCO2 VBG 59 mmHG (40-50); PO2 VBG 25.3 mmHG (25-47); pH VBG 7.373 (7.32-7.43)
[2023-09-30 06:53] LABS: Hematocrit 39.3 % (37.0-53.0); Hemoglobin* 12.9 gm/dL (13.5-17.5); Mean Corpuscular HGB Conc 33 gm/dL (32-36); Mean Corpuscular Hemoglobin 29 pg (26-34); Mean Corpuscular Volume 87 fL (80-100); Platelet Count* 289 K/uL (140-440); Red Blood Count 4.53 m/uL (4.30-5.90); White Blood Count* 14.15 K/uL (4.50-11.00)
[2023-09-30 06:56] LABS: Slide Review Reflex No
[2023-09-30 07:00] VITALS: BP 125/90; PULSE 80; PULSE 81; RESP 18; TEMP 37.1; O2SAT 94
[2023-09-30 07:15] LABS: Chloride* 98 mmol/L (96-114); Potassium* 4.3 mmol/L (3.6-5.1); Sodium* 139 mmol/L (135-149)
[2023-09-30 07:18] LABS: Anion Gap 7 mEq/L (7-15); Carbon Dioxide* 34 mmol/L (20-32); Creatinine* 0.7 mg/dL (0.5-1.5); Est. Creatinine Clearance* 130.76; Estimated Glomerular Filt Rate 110 ml/min
[2023-09-30 07:19] LABS: Blood Urea Nitrogen* 18 mg/dL (7-30); Calcium* 9.4 mg/dL (8.4-10.6); Glucose* 119 mg/dL (60-115)
[2023-09-30] MEDS: Fluticasone-Umeclidin-Vilanter [Trelegy Ellipta] 100-62.5-25 mcg 1 EACH IH (09:42)
[2023-09-30] MEDS: dexAMETHasone 2 MG TABLET 6 MG PO (09:42)
[2023-09-30] MEDS: SODIUM CHLORIDE 0.9 % (FLUSH) 10 ML SYRINGE 5 ML IVF (09:43)
[2023-09-30 11:00] VITALS: BP 142/91; PULSE 82; RESP 16; O2SAT 94
--- NOTE | 2023-09-30 14:01 | PC.NURSE ---
Nursing Care Hours: [id number] Pt this shift independent in room, alert and oriented, calm and cooperative. Pt increased supplemental O2 from 1L to2.5L, chronically at 4L at home. Pt states was feeling SOB going to the bathroom. SpO2 remains between 91-94%. Pt c/o feeling well this morning compared to last night. Did state he was woken up by the sound of snow plows and is feeling maybe just tired. Ate most of meal but states stomach feels a little upset. Ensure given to pt, drank 100%. VSS. IV removed for discharge. Instruction went over with pt. Char Filter Tank Tender added that pt drink plenty of fluids, good protein, and rest. Pt had no questions or concerns. Wheel chair out to vehicle in stable condition.
--- NOTE | 2023-09-30 16:41 | PM.DS1 ---
DS: Providers Provider Date Seen: 09/30/23 Date of admission: 09/29/23 09:03 Primary care physician: Rohan Saldaña MD Admitting Clinician: Janice Tao MD Consults: 09/28/23 14:56 Consult to Respiratory Therapy [CONS] Routine Comment: Reason(s) for RT Consult:: Consult Attending Physician on discharge: Janice Tao MD Date of Discharge: 09/30/23 DS: Diagnosis Discharge Diagnosis (1) COVID: Status: Acute Problem details: -status post 1 dose of IV Remdesivir. 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 (3) Oxygen dependent: Status: Acute Problem details: Stable (4) Recurrent deep vein thrombosis (DVT): Status: Acute Problem details: - history of DVT x2 and PE With COVID he is high risk for recurrent DVT/PE, we covered him with enoxaparin. DS: Summary Hospital Course Hospital Course: FINAL DIAGNOSIS/FOLLOW UP ISSUES: 1. COVID-19 high risk for deterioration. Hospitalized 2 nights. Oxygen saturations and demand were stable. Discharged on oral paxlovid and prednisone. BRIEF HOSPITAL COURSE: Patient was admitted for two days. Synopsis of acute inpatient issues are outlined above. Chronic medical conditions with notable findings outlined above. DISCHARGE MEDICATIONS: See Reconciled list - SIGNIFICANT CHANGES: Four more days of oral paxlovid and burst and taper of oral prednisone Specific instructions to the patient and follow-up are outlined below. REVIEW OF SYSTEMS No new chest pain or dyspnea Pain controlled No voiding difficulties Tolerating diet challenge PHYSICAL EXAM: CONSTITUTIONAL: Chronically ill-appearing. Thin. VITAL SIGNS: see record. HEENT: Normocephalic, atraumatic. PERRL, EOMI, conjunctivae pink, no scleral icterus. Ears and nose externally normal. Pharynx normal. NECK: No JVD. No carotid bruit, no thyromegaly, no adenopathy. CHEST: Clear to auscultation bilaterally. HEART: S1 and S2 normal. Edema ABDOMEN: Soft, nontender. Normal bowel sounds. MUSCULOSKELETAL: No gross joint deformity or swelling. NEURO: Cranial nerves intact. Grossly intact. No asymmetric findings. SKIN: No rashes, petechiae, concerning changes PSYCHIATRIC: Mood euthymic. DISPOSITION: Home Time spent on discharge 37 minutes. Status at Discharge Functional status at discharge: uses cane/walker Overall status at discharge: patient is progressing back to baseline Time Spent with Patient Time attestation: Total time spent providing and/or coordinating discharge services: Time spent: Greater than 30 minutes Exam Const: Vital Signs, click to edit/add: Vital Signs - 24 hr 09/29/23 19:17 09/29/23 19:19 09/29/23 22:14 Temperature 98.2 F 98.2 F 98.6 F Pulse Rate [Pulse Oximeter] 84 83 Respiratory Rate 14 16 Blood Pressure [Le ft Arm] 124/74 139/93 H Pulse Oximetry 93 93 Oxygen Delivery Me thod Nasal Cannula Nasal Cannula Oxygen Flow Rate 1 1 09/29/23 22:16 09/30/23 02:02 09/30/23 07:00 Temperature 98.6 F Pulse Rate [Pulse Oximeter] 83 93 81 Respiratory Rate 16 18 18 Blood Pressure [Le ft Arm] 107/74 Pulse Oximetry 93 Oxygen Delivery Me thod Nasal Cannula Oxygen Flow Rate 1 09/30/23 07:00 09/30/23 11:00 Temperature 98.8 F Pulse Rate [Pulse Oximeter] 80 82 Respiratory Rate 18 16 Blood Pressure [Le ft Arm] 125/90 H 142/91 H Pulse Oximetry 94 94 Oxygen Delivery Me thod Nasal Cannula Nasal Cannula Oxygen Flow Rate 2 2.5 DS: Data Data Completed and Pending Completed studies during hospitalization: Procedures Assistance with Respiratory Ventilation, 24-96 Consecutive Hours, Continuous Positive Airway Pressure (09/02/22) Introduction of Other Gas into Respiratory Tract, Via Natural or Artificial Opening (09/07/22) Labs on day of discharge: Labs from last 24 hours 09/30/23 06:22 WBC 14.15 H RBC 4.53 Hgb 12.9 L Hct 39.3 MCV 87 MCH 29 MCHC 33 Plt Count 289 VBG pH 7.373 VBG pCO2 59 H VBG pO2 25.3 VBG HCO3 35 H Sodium 139 Potassium 4.3 Chloride 98 Carbon Dioxide 34 H Anion Gap 7 BUN 18 Creatinine 0.7 Estimated Creat Clear 130.76 Estimated GFR 110 Glucose 119 H Calcium 9.4 Preliminary micro results at discharge 09/28/23 10:53 Blood Culture - Preliminary Blood NO GROWTH AFTER 48 HOURS 09/28/23 10:53 Blood Culture - Preliminary Blood NO GROWTH AFTER 48 HOURS Discharge Plan Discharge Disposition: Home, Self-Care Date of Admission: 09/29/23 09:03 Primary Care Provider: Rohan Saldaña Condition: Stable Anticipated Discharge Date/Time: 09/30/23 10:48 Discharge Medications: Continued Trelegy Ellipta 100-62.5-25 mcg blister with device 1 inh inhalation DAILY Qty: 60 11RF albuterol sulfate 90 mcg/actuation HFA aerosol inhaler 2 inh inhalation Q4-6H PRN (Reason: shortness of breath or wheezing) Qty: 6.7 12RF (DME) Home Oxygen Misc See Rx Instructions .Route Qty: 1 0RF Rx Instructions: As directed Paxlovid 300 mg (150 mg x 2)-100 mg tablets,dose pack 3 ea PO BID Discharge Orders: Discharge Order (Routine); Ordered 09/30/23 Ordered By: Janice Tao Patient Education: Nirmatrelvir/Ritonavir (By mouth) (Paxlovid), COPD (Chronic Obstructive Pulmonary Disease) (DC), Hypoxia (ED) Additional Instructions: finish the paxlovid. call us regarding directions on the prednisone. [phone] Activity Level: Activity as Tolerated Discharge Diet: Regular Follow Up Appointments: pulmonary, medicine [Other] (keep f/u already scheduled for first week of October) Rohan Saldaña MD [Primary Care Provider] - 10/09/23 2:45 pm ([facility] for follow-up.) Forms: [employer] Info Instructions
== END 2023-09-30 12:19 | disposition home or self-care (01) | DRG 190 ==
LOC: ED 14:55 → MEDSURG 15:04
PROVIDERS: Admitting Provider Family Medicine; Emergency Provider Student in an Organized Health Care Education/Training Program; PCP Family Medicine; Visit Provider Family Medicine
DX: J44.0 Chronic obstructive pulmonary disease with (acute) lower respiratory infection (principal); U07.1 COVID-19; J96.12 Chronic respiratory failure with hypercapnia; J96.11 Chronic respiratory failure with hypoxia; J22 Unspecified acute lower respiratory infection; Z86.718 Personal history of other venous thrombosis and embolism; Z86.711 Personal history of pulmonary embolism; Z72.0 Tobacco use; F12.90 Cannabis use, unspecified, uncomplicated; Z99.81 Dependence on supplemental oxygen
CPT/HCPCS: 36415; 36600; 71250; 80048; 80053; 82565; 82803; 83605; 83735; 83880; 84484; 85025; 85027; 85379; 87040; 87631; 93005; 99283; 99285; A9270; G0378; J1200; J1650; J1885; J2765; J2930; J7050; J7120

== ENCOUNTER 2023-10-02 15:37 | Emergency (ER) | payer MEDICARE, OTHER, SELFPAY ==
[2023-10-02] VITALS (21 sets, daily range): BP systolic 108–144; BP diastolic 85–110; PULSE 80–112; RESP 24; TEMP 37.3; O2SAT 92–97; BMI 23.7
--- NOTE | 2023-10-02 16:12 | CRLHL7_ITS ---
For Patients: As a result of the Century Cures Act, medical imaging exams and procedure reports are released immediately into your electronic medical record. You may view this report before your referring provider. If you have questions, please contact your health care provider. INDICATION: Shortness of breath. History of DVT. COPD. COVID positive. TECHNIQUE: CT chest pulmonary angiogram acquired with 95 cc of Isovue 370 IV contrast. Sagittal and coronal reformatted images submitted for review. COMPARISON: CT chest without contrast 09/28/2023. FINDINGS: Cardiovascular structures: CT pulmonary angiogram demonstrates adequate opacification of the pulmonary arteries. No evidence of pulmonary embolus. Heart size is within normal limits. Thoracic aorta is normal in caliber. Mediastinum and jose raul: No mass or adenopathy. Lungs: No pneumothorax. Secretions are now present in the trachea and mainstem bronchi. New or slightly increased mild bilateral bronchial wall thickening. Advanced emphysema with bilateral scarring and atelectasis, as before. Lungs are otherwise clear. Pleura and pericardium: Small pericardial effusion is new/increased. No pleural effusions. Chest wall and axilla: Unremarkable. Bones: No acute or suspicious osseous abnormality. Mild degenerative changes of the spine. Upper abdomen: Unremarkable. IMPRESSION: 1. No evidence of pulmonary embolus. 2. Mild bilateral bronchial wall thickening is likely infectious/inflammatory. Secretions are now present in the trachea and mainstem bronchi. No focal airspace consolidation. 3. Small pericardial effusion has increased. 4. Advanced emphysema, as before. Dictated by Reginaldo Branch MD @ 10/02/2023 5:59:19 PM Please note that all CT scans at this facility use dose modulation, iterative reconstruction, and/or weight-based dosing when appropriate to reduce radiation dose to as low as reasonably achievable. Dictated by: Reginaldo Branch MD @ 10/02/2023 17:59:40 (Electronically Signed)
--- NOTE | 2023-10-02 16:25 | ED.GENADULT ---
HPI - General Adult General Chief complaint: Chest Pain Stated complaint: Chest pain Time Seen by Provider: 10/02/23 15:58 History of Present Illness HPI narrative: 53-year-old male, with a history of end-stage COPD waiting to hear back from the [facility] if he is a lung transplant candidate, presenting today with shortness of breath. Patient was recently hospitalized with COVID-19 infection for 2 days. He was sent home on Paxlovid and prednisone. He states that he was at his baseline until today when he became more short of breath. His baseline consists of 3 L oxygen at rest and 4 L with any physical activity, this did not change today. He states that his cough is worse. He states that he coughs so hard that he almost Faints. He is afraid because he lives at home by himself. he denies any fever today. Appetite has been abysmal for quite some time, this is unchanged. He denies any diarrhea or any urinary symptoms. He has no abdominal pain. He has a chronic chest pressure that is unchanged. Related Data Home Medications Medication Instructions Recorded Confirmed nirmatrelvir 300 mg (150 mg 3 ea PO BID 09/29/23 10/02/23 x2)-ritonavir 100 mg tablet,dose pack (Paxlovid) prednisone 20 mg tablet 10 mg PO DAILY 10/02/23 10/02/23 Previous Rx's Medication Instructions Recorded Home Oxygen #1 ea 09/07/22 albuterol sulfate 90 mcg/actuation 2 inh inhalation Q4-6H PRN 09/25/23 aerosol inhaler shortness of breath or wheezing #6.7 grams fluticasone fur. 100 mcg-umeclid 1 inh inhalation DAILY #60 ea 09/25/23 62.5 mcg-vilant 25 mcg inhalat.powder (Trelegy Ellipta) Allergies Allergy/AdvReac Type Severity Reaction Status Date / Time No Known Drug Allergies Allergy Verified 10/02/23 17:01 [facility] Medical History (Updated 10/02/23 @ 18:31 by Sandra Townsend MD) COPD (chronic obstructive pulmonary disease) ?J44.9 - Chronic obstructive pulmonary disease, unspecified (ICD-10) Tubular adenoma (08/05/19) ?D36.9 - Benign neoplasm, unspecified site (ICD-10) Recurrent deep vein thrombosis (DVT) ?I82.409 - Acute embolism and thrombosis of unspecified deep veins of unspecified lower extremity (ICD-10) Oxygen dependent ?Z99.81 - Dependence on supplemental oxygen (ICD-10) Former smoker ?Z87.891 - Personal history of nicotine dependence (ICD-10) Acute and chronic respiratory failure with hypoxia ?J96.21 - Acute and chronic respiratory failure with hypoxia (ICD-10) Surgical History (Updated 09/30/23 @ 16:44 by Janice Tao MD) H/O lumbar discectomy ?Z98.890 - Other specified postprocedural states (ICD-10) Social History (Updated 09/28/23 @ 15:13 by Han Parker MD) Narrative: He lives alone in [place]. His sister, Yelitza Sheikh, is healthcare power of disability attorney. Code status is full. He occasionally smokes a cigarette, about once a week. He smokes marijuana about once a day. Does not drink alcohol. He is disabled What is your current living situation?: I presently have a place to live Problems where you live: no known problems Problems where you live details: stairs- moving at end of month In the past 12 months, utilities in danger of being shut off: no In past 12 months, lack of transportation kept you from medical appts, meetings, work, or getting things needed for daily living: no In the past 12 mos, have been you worried that your food would run out before you had money to buy more?: never true In the past 12 mos, the food you bought just didn't last and you didn't have money to buy more?: never true Highest level of school completed/degree received: GED or equivalent Smoking Status: Current some day smoker What tobacco products do you use: cigarettes Smoking quit date/years: <= 15 years ago Do you use any of these nicotine containing products: None Second hand tobacco smoke exposure: No How often do you have a drink containing alcohol: never How often do you have six or more drinks on one occasion: Never AUDIT-C Alcohol total score: 0 Non-prescribed substance use: marijuana (any form) Caffeine: Yes (2 sodas) How often does anyone, including family, friends and others, physically hurt you: never How often does anyone, including family, friends and others, insult or talk down to you: never How often does anyone, including family, friends and others, threaten you with harm: never How often does anyone, including family, friends and others, scream or curse at you: never Little interest or pleasure in doing things: not at all Feeling down, depressed, or hopeless: not at all service: No Exam Narrative: Exam Narrative: Very thin, frail patient, quite anxious. Alert and oriented. Answers questions appropriately. Patient cannot complete a full sentence without needing to catch his breath. HEENT: Normocephalic atraumatic. Pupils are equally round reactive to light. Extraocular muscles are intact. Conjunctivae are moist without any icterus noted. Moist mucous membranes. Neck is soft. Cardiovascular: Cardiovascular is tachycardic, S1-S2 present without murmurs. Lungs: Almost no breath sounds bilaterally, very mild wheeze. Increased work of breathing. Abdomen: Soft and nondistended with normal bowel sounds. Extremities: Bilateral lower extremities are without edema. Skin: Well perfused without any obvious rashes. Const: Vital Signs, click to edit/add: Vital Signs - 24 hr 10/02/23 15:42 10/02/23 16:07 10/02/23 16:08 Temperature 99.1 F Pulse Rate 101 H 100 Pulse Rate [Pulse Oximeter] 109 H Respiratory Rate 24 Blood Pressure 130/110 H Blood Pressure [Ri ght Upper Arm] 144/102 H Pulse Oximetry 97 93 93 Oxygen Delivery Me thod Room Air Nasal Cannula Nasal Cannula Oxygen Flow Rate 3 3 10/02/23 16:12 10/02/23 16:15 10/02/23 16:30 Temperature Pulse Rate 87 82 Pulse Rate [Pulse Oximeter] Respiratory Rate Blood Pressure Blood Pressure [Ri ght Upper Arm] Pulse Oximetry 93 95 95 Oxygen Delivery Me thod Nasal Cannula Nasal Cannula Oxygen Flow Rate 3 3 10/02/23 16:31 10/02/23 16:45 10/02/23 17:04 Temperature Pulse Rate 112 H 106 H 93 Pulse Rate [Pulse Oximeter] Respiratory Rate Blood Pressure 108/98 H Blood Pressure [Ri ght Upper Arm] Pulse Oximetry 94 92 94 Oxygen Delivery Me thod Nasal Cannula Nasal Cannula Nasal Cannula Oxygen Flow Rate 3 3 3 10/02/23 17:06 10/02/23 17:11 10/02/23 17:15 Temperature Pulse Rate 104 H 99 97 Pulse Rate [Pulse Oximeter] Respiratory Rate Blood Pressure 144/95 H Blood Pressure [Ri ght Upper Arm] Pulse Oximetry 92 93 95 Oxygen Delivery Me thod Nasal Cannula Nasal Cannula Nasal Cannula Oxygen Flow Rate 3 3 3 10/02/23 17:30 10/02/23 17:31 10/02/23 17:45 Temperature Pulse Rate 87 87 86 Pulse Rate [Pulse Oximeter] Respiratory Rate Blood Pressure 115/91 H Blood Pressure [Ri ght Upper Arm] Pulse Oximetry 95 96 95 Oxygen Delivery Me thod Nasal Cannula Nasal Cannula Nasal Cannula Oxygen Flow Rate 3 3 3 10/02/23 18:00 10/02/23 18:01 Temperature Pulse Rate 82 99 Pulse Rate [Pulse Oximeter] Respiratory Rate Blood Pressure 121/91 H Blood Pressure [Ri ght Upper Arm] Pulse Oximetry 95 95 Oxygen Delivery Me thod Nasal Cannula Nasal Cannula Oxygen Flow Rate 3 3 Course Course ED Course: EKG, read by me, shows normal sinus rhythm, pulse 100. IV is established and patient received a dose of IV Ativan. He felt significantly better afterwards. [place] that his breathing was much better and he was much calmer. His CBC shows an elevated white count of 15.8, he does have a chronically elevated white cell count. His chemistries were unremarkable. Troponin was negative. Given his history of PE and DVTs, a Chest CT was done and showed no evidence of PE, did have bronchial wall thickening with secretions consistent with infection / inflammation. Also had a small pleural effusion. I did consult with our hospitalist, Yelitza Fine, who also felt that discharging home was the most appropriate course at this time. Patient was asking to eat just prior to discharge. Vital Signs Vital signs: Initial Vital Signs Temperature 99.1 F 10/02/23 15:42 Temperature Source Temporal Artery Scan 10/02/23 15:42 Pulse Rate 109 H 10/02/23 15:42 Respiratory Rate 24 10/02/23 15:42 Blood Pressure 144/102 H 10/02/23 15:42 Blood Pressure Mean 116 H 10/02/23 15:42 Blood Pressure Position Sitting 10/02/23 15:42 Pulse Oximetry 97 10/02/23 15:42 Oxygen Delivery Method Room Air 10/02/23 15:42 Vital Signs Temperature 99.1 F 10/02/23 15:42 Pulse Rate 109 H 10/02/23 15:42 Respiratory Rate 24 10/02/23 15:42 Blood Pressure 144/102 H 10/02/23 15:42 Pulse Oximetry 97 10/02/23 15:42 Oxygen Delivery Method Room Air 10/02/23 15:42 Temperature 99.1 F 10/02/23 15:42 Pulse Rate 99 10/02/23 18:01 Respiratory Rate 24 10/02/23 15:42 Blood Pressure 121/91 H 10/02/23 18:01 Pulse Oximetry 95 10/02/23 18:01 Oxygen Delivery Method Nasal Cannula 10/02/23 18:01 Oxygen Flow Rate 3 10/02/23 18:01 Medications Administered Medications: Discontinued Medications Generic Name Dose Route Start Last Admin Trade Name Freq PRN Reason Stop Dose Admin Lorazepam 0.5 mg 10/02/23 16:13 10/02/23 16:30 Lorazepam 2 Mg/Ml Inj IVP 10/02/23 16:14 0.5 mg ONCE ONE Administration Medical Decision Making MDM Narrative Medical decision making narrative: 53-year-old male with end-stage COPD and COVID-19. Patient does have secretions that are consistent with his infection. I do believe that a lot of his difficulty breathing is due to anxiety and his end-stage COPD, he did again, feels significantly better after Ativan. We discussed hospitalization verses treatment at home. At this time we would not do anything in the hospital for him therefore patient is agreeable to go home at this time and follow-up as needed. I will send him home with a couple tablets of Ativan. He will continue his prednisone and Paxlovid. Medical Records Medical records reviewed: Yes I reviewed the patient's medical records Lab Data Lab results reviewed: Yes I reviewed the patient's lab results Labs: Lab Results 10/02/23 Range/Units 16:30 WBC 15.87 H (4.50-11.00) K/uL RBC 4.88 (4.30-5.90) m/uL Hgb 13.9 (13.5-17.5) gm/dL Hct 43.0 (37.0-53.0) % MCV 88 (80-100) fL MCH 29 (26-34) pg MCHC 32 (32-36) gm/dL RDW Coeff of Edin 12.3 (11.5-15.5) % Plt Count 373 (140-440) K/uL Neut % (Auto) 86.2 H (42.0-72.0) % Lymph % (Auto) 4.0 L (20-44) % Craven % (Auto) 8.1 (0.0-11.0) % Eos % (Auto) 0.0 (0.0-7.0) % Baso % (Auto) 0.1 (0.0-3.0) % Neut # (Auto) 13.70 H (1.7-7.0) K/uL Lymph # (Auto) 0.60 L (0.90-2.90) K/uL Craven # (Auto) 1.30 H (0.00-0.90) K/UL Eos # (Auto) 0.00 (0.00-0.50) K/uL Baso # (Auto) 0.00 (0.00-0.30) K/uL Abs Immat Gran (auto) 0.30 (0.00-0.30) K/uL Imm/Tot Granulo (auto) 1.6 % Sodium 139 (135-149) mmol/L Potassium 4.0 (3.6-5.1) mmol/L Chloride 96 (96-114) mmol/L Carbon Dioxide 36 H (20-32) mmol/L Anion Gap 7 (7-15) mEq/L BUN 24 (7-30) mg/dL Creatinine 0.8 (0.5-1.5) mg/dL Estimated Creat Clear 117.21 Estimated GFR 106 ml/min Glucose 138 H (60-115) mg/dL Lactate 1.9 (0.5-1.9) mmol/L Calcium 9.0 (8.4-10.6) mg/dL Troponin I < 0.01 L (0.01-0.04) ng/mL POC Troponin I 0.00 L (0.01-0.04) ng/ml Imaging Data CT scan - chest: Attestation: I have reviewed the pertinent imaging results. Radiologist's impression: TECHNIQUE: CT chest pulmonary angiogram acquired with 95 cc of Isovue 370 IV contrast. Sagittal and coronal reformatted images submitted for review. COMPARISON: CT chest without contrast 09/28/2023. FINDINGS: Cardiovascular structures: CT pulmonary angiogram demonstrates adequate opacification of the pulmonary arteries. No evidence of pulmonary embolus. Heart size is within normal limits. Thoracic aorta is normal in caliber. Mediastinum and jose raul: No mass or adenopathy. Lungs: No pneumothorax. Secretions are now present in the trachea and mainstem bronchi. New or slightly increased mild bilateral bronchial wall thickening. Advanced emphysema with bilateral scarring and atelectasis, as before. Lungs are otherwise clear. Pleura and pericardium: Small pericardial effusion is new/increased. No pleural effusions. Chest wall and axilla: Unremarkable. Bones: No acute or suspicious osseous abnormality. Mild degenerative changes of the spine. Upper abdomen: Unremarkable. IMPRESSION: 1. No evidence of pulmonary embolus. 2. Mild bilateral bronchial wall thickening is likely infectious/inflammatory. Secretions are now present in the trachea and mainstem bronchi. No focal airspace consolidation. 3. Small pericardial effusion has increased. 4. Advanced emphysema, as before. ECG Data Attestation: I personally reviewed and interpreted this ECG as follows: Discharge Plan Discharge Clinical Impression: COVID, Oxygen dependent, COPD (chronic obstructive pulmonary disease) Patient Disposition: Home, Self-Care Condition: Stable Additional Instructions: Continue taking the Paxlovid and prednisone as prescribed. Tablets of lorazepam will be sent home with you -take these when you feel increasing shortness of breath. If the tablets do not help and you continue to feel increasing shortness of breath or have difficulty breathing, return to the ER. Prescription sent to [facility]. Prescriptions: No Action Trelegy Ellipta 100-62.5-25 mcg blister with device 1 inh inhalation DAILY Qty: 60 11RF albuterol sulfate 90 mcg/actuation HFA aerosol inhaler 2 inh inhalation Q4-6H PRN (Reason: shortness of breath or wheezing) Qty: 6.7 12RF (DME) Home Oxygen Misc See Rx Instructions .Route Qty: 1 0RF Rx Instructions: As directed Paxlovid 300 mg (150 mg x 2)-100 mg tablets,dose pack 3 ea PO BID prednisone 20 mg tablet 10 mg PO DAILY Patient Comments: Taking tapered dose pack Follow Up/Referrals: Rohan Saldaña MD [Primary Care Provider] - Stand Alone Forms: [employer] Info Instructions
[2023-10-02] MEDS: LORazepam 2 MG/ML inj 0.5 MG IVP (16:30)
[2023-10-02 16:38] LABS: Basophils Percent Auto 0.1 % (0.0-3.0); Hemoglobin* 13.9 gm/dL (13.5-17.5); Immature Granulocytes Pct Auto 1.6 %; Lactate* 1.9 mmol/L (0.5-1.9); Mean Corpuscular HGB Conc 32 gm/dL (32-36); Mean Corpuscular Hemoglobin 29 pg (26-34); Mean Corpuscular Volume 88 fL (80-100); Monocytes Percent Auto 8.1 % (0.0-11.0); Neutrophils Percent Auto 86.2 % (42.0-72.0); Platelet Count* 373 K/uL (140-440); RDW Coefficient of Variation % 12.3 % (11.5-15.5); Red Blood Count 4.88 m/uL (4.30-5.90); White Blood Count* 15.87 K/uL (4.50-11.00)
[2023-10-02 16:40] LABS: Slide Review Reflex No
--- OUTSIDE RECORDS SUMMARY | 2023-10-02 16:56 | XMS_ITS | Encounter Summary ---
Author Name Unknown Organization [address] [address] Care Team Providers Care Trencher Driver Name Role Phone Unavailable Primary Care Provider Unavailabl e Reason for Referral * Rehab Therapy Cardiac Therapy (Routine) - Closed Specialty Diagnoses / Procedures Referred By Contmarisa t Referred To Contact CARDIAC REHAB Diagnoses Stage 4 very severe COPD by GOLD classification (H) [address] [address] Referral ID Status Reason Start Date Expiration Date Visits Re quested Visits Authorized [id number] Closed 01/17/2023 09/17/2023 72 72 Question Answer Reason for Referral COPD - Very Severe Preferred Location: [facility] Scheduling Instructions: If you have not heard from the scheduling office within 2 business days, please call [phone] for [facility], for [employer] and [phone] for [place]. Additional Information: Oxygen to be applied as [...] office within 2 business days, please call [phone] for [facility], for [place] and [phone] for [place]. Encounter Details Date Type Department Care Team (Latest Contact Info) Description 12/30/2022 Transcribe Orders GENERIC EXTERNAL DATA DEPARTMENT Moose Garcia MD [facility] [address] [address] Stage 4 very severe COPD by GOLD [...]
--- OUTSIDE RECORDS SUMMARY | 2023-10-02 16:56 | XMS_ITS | Encounter Summary ---
Author Name Unknown Organization [address] [address] Care Team Providers Care Fuel Efficient Automobile Designer Name Role Phone Rohan Saldaña MD Primary Care Provider [phone] Reason for Visit * Rehab Therapy Cardiac Therapy (Routine) - Closed Specialty Diagnoses / Procedures Referred By Contmarisa t Referred To Contact CARDIAC REHAB Diagnoses Stage 4 very severe COPD by GOLD classification (H) [address] [id number] Referral ID Status Reason Start Date Expiration Date Visits Re quested Visits Authorized [id number] Closed 01/17/2023 09/17/2023 72 72 Encounter Details Date Type Department Care Team (Latest Contact Info) Description 02/15/2023 2:33 PM CDT - 02/15/2023 11:59 PM CDT Hospital Encounter [facility] [address] [place] [address] Moose Garcia MD [facility] [address] [place] [id number], [facility] Discharge Disposition: Home [...] he finds out the insurance coverage for [place]. documented in this encounter Plan of Treatment Not on file documented as of this encounter Visit Diagnoses Not on filedocumented in this encounter Care Teams Fuel Efficient Automobile Designer Relationship Specialty Start Date End Date Rohan Saldaña MD PCP - General Family Medicine 01/20/23 documented as of this encounter
--- OUTSIDE RECORDS SUMMARY | 2023-10-02 16:56 | XMS_ITS | Encounter Summary ---
Author Name Unknown Organization [place] Address [address] [place] [address] Care Team Providers Care Metal Plater Name Role Phone Rohan Saldaña MD Primary Care Provider [phone] Encounter Details Date Type Department Care Team [...] on filedocumented in this encounter Care Teams Metal Plater Relationship Specialty Start Date End Date Rohan Saldaña MD PCP - General Family Medicine 01/20/23 documented as of this encounter
--- OUTSIDE RECORDS SUMMARY | 2023-10-02 16:56 | XMS_ITS | Referral Summary ---
Author Name Unknown Organization [place] Address [address] [place] [address] Care Team Providers Care Process Owner Name Role Phone Rohan Saldaña MD Primary Care Provider Social History Tobacco Use Types Packs/Day Years Used Date Smoking Tobacco: Never Assessed Adolescent Education Answer Date Record ed Getting School Help Needed Not on file 06/24 Sex and Gender Information Value Date Recorded Sex Assigned at Not on file Gender Identity Not on file Sexual Orientation Not on file Plan of Treatment Not on file Care Teams Process Owner Relationship Specialty Start Date End Date Rohan Saldaña MD PCP - General Family Medicine 01/20/23
--- OUTSIDE RECORDS SUMMARY | 2023-10-02 16:56 | XMS_ITS | Clinical Summary ---
Author Name Unknown Organization [place] Address [address] [place] [address] Care Team Providers Care Visitor Services Assistant Name Role Phone Rohan Saldaña MD Primary Care Provider [phone] Social History Tobacco Use Types Packs/Day Years [...] age to complete this topic Care Teams Visitor Services Assistant Relationship Specialty Start Date End Date Rohan Saldaña MD PCP - General Family Medicine 01/20/23
--- OUTSIDE RECORDS SUMMARY | 2023-10-02 16:57 | XMS_ITS | Encounter Summary ---
Author Name Unknown Organization [facility] Address [address] [place] [address] Care Team Providers Care Physics Teacher Name Role Phone Ariadna, [facility] Primary Unavailable Unavailable Rohan Saldaña MD Primary Care Provider [phone] Reason for Referral * (Routine) - Open Specialty Diagnoses / Procedures Referred By Contac t Referred To [place] [address] [place] [address] [place] [address] Referral ID Status Reason Start Date Expiration Date Visits Re quested Visits Authorized [id number] Open 04/28/2023 1 1 * (Routine) - Open Specialty Diagnoses / Procedures Referred By Contac t Referred To Contact Procedures Diet: Regular Han Jacobo MD [address] [place] [address] [place] [address] Referral ID Status Reason Start Date Expiration Date Visits Re quested Visits Authorized [id number] Open 04/28/2023 1 1 * (Routine) - Open Specialty Diagnoses / Procedures Referred By Contac t Referred To Contact Diagnoses COPD exacerbation (HCC) Procedures Oxygen Set Up / Device Han Jacobo MD [address] [place], [place] [address] [address] Referral ID Status Reason Start Date Expiration Date Visits Re quested Visits Authorized [id number] Open 04/28/2023 1 1 * (Routine) - Open Specialty Diagnoses / Procedures Referred By Contac t Referred To Contact Procedures Discharge Immunizations: Influenza vaccine should be given from June through October Han Jacobo MD [address] [place] [address] Referral ID Status Reason Start Date Expiration Date Visits Re quested Visits Authorized [id number] Open 04/28/2023 1 1 * (Routine) - Open Specialty Diagnoses / Procedures Referred By Contac t Referred To Contact Procedures Discharge Immunizations: Pneumovax 0.5 mL IM if not given within last 10 years Han Jacobo MD [address] [place] [address] Referral ID Status Reason Start Date Expiration Date Visits Re quested Visits Authorized [id number] Open 04/28/2023 1 1 * (Routine) - Open Specialty Diagnoses / Procedures Referred By Contac t Referred To Contact Procedures Discharge Immunizations: Yes, give two-step Mantoux (PPD) Per Facility Policy (0.1 mL 5 TU PPD) Han Jacobo MD [address] [place] [address] Referral ID Status Reason Start Date Expiration Date Visits Re quested Visits Authorized [id number] Open 04/28/2023 1 1 * (Routine) - Open Specialty Diagnoses / Procedures Referred By Contac t Referred To Contact Procedures Normal activity as tolerated Han Jacobo MD [address] [place] [address] Referral ID Status Reason Start Date Expiration Date Visits Re quested Visits Authorized [id number] Open 04/28/2023 1 1 * (Routine) - Open Specialty Diagnoses / Procedures Referred By Contac t Referred To Contact Procedures Any questions or concerns Han Jacobo MD [address] [place] [address] Referral ID Status Reason Start Date Expiration Date Visits Re quested Visits Authorized [id number] Open 04/28/2023 1 1 * (Routine) - Open Specialty Diagnoses / Procedures Referred By Contac t Referred To Contact Procedures Rehabilitation Potential: Han Jacobo MD [address] [place] [address] Referral ID Status Reason Start Date Expiration Date Visits Re quested Visits Authorized [id number] Open 04/28/2023 1 1 * (Routine) - Open Specialty Diagnoses / Procedures Referred By Contac t Referred To Contact Procedures Snf Standing Orders- Yes Han Jacobo MD [address] [place] [address] Referral ID Status Reason Start Date Expiration Date Visits Re quested Visits Authorized [id number] Open 04/28/2023 1 1 * (Routine) - Open Specialty Diagnoses / Procedures Referred By Contac t Referred To Contact Procedures Care Level - Skilled Han Jacobo MD [address] [place] [address] Referral ID Status Reason Start Date Expiration Date Visits Re quested Visits Authorized [id number] Open 04/28/2023 1 1 * (Routine) - Open Specialty Diagnoses / Procedures Referred By Contac t Referred To Contact Procedures Condition At Discharge- Improving Han Jacobo MD [address] [place] [address] Referral ID Status Reason Start Date Expiration Date Visits Re quested Visits Authorized [id number] Open 04/28/2023 1 1 * (Routine) - Open Specialty Diagnoses / Procedures Referred By Contac t Referred To Contact Procedures Length Of Stay: Short-term care less than 30 days Han Jacobo MD [address] [place] [address] Referral ID Status Reason Start Date Expiration Date Visits Re quested Visits Authorized [id number] Open 04/28/2023 1 1 * (Routine) - Open Specialty Diagnoses / Procedures Referred By Contac t Referred To Contact Procedures Discharge Instructions Renée Sky APRN, SHEILA [address] [facility] [address] [place] [address] Referral ID Status Reason Start Date Expiration Date Visits Re quested Visits Authorized [id number] Open 04/27/2023 1 1 * (Routine) - Open Specialty Diagnoses / Procedures Referred By Contac t Referred To Contact Procedures Wound care Renée Sky APRN, SHEILA [address] [place] [address] [place] [address] Referral ID Status Reason Start Date Expiration Date Visits Re quested Visits Authorized [id number] Open 04/27/2023 1 1 * (Routine) - Open Specialty Diagnoses / Procedures Referred By Contac t Referred To Contact Procedures Showering instructions Renée Sky, FINAL ASSEMBLER BOAT, QUALITY PROCESS ENGINEER [address] [place] [address] [place] [address] Referral ID Status Reason Start Date Expiration Date Visits Re quested Visits Authorized [id number] Open 04/27/2023 1 1 * (Routine) - Open Specialty Diagnoses / Procedures Referred By Contac t Referred To Contact Procedures Lifting restrictions Renée Sky, FINAL ASSEMBLER BOAT, QUALITY PROCESS ENGINEER [address] [place] [address] [place] [address] Referral ID Status Reason Start Date Expiration Date Visits Re quested Visits Authorized [id number] Open 04/27/2023 1 1 * (Routine) - Open Specialty Diagnoses / Procedures Referred By Contac t Referred To Contact Procedures No driving Renée Sky, FINAL ASSEMBLER BOAT, QUALITY PROCESS ENGINEER [address] [place] [address] [place] [address] Referral ID Status Reason Start Date Expiration Date Visits Re quested Visits Authorized [id number] Open 04/27/2023 1 1 * (Routine) - Open Specialty Diagnoses / Procedures Referred By Contac t Referred To Contact Procedures General activity Renée Syk FINAL ASSEMBLER BOAT, QUALITY PROCESS ENGINEER [address] [place] [address] [place] [address] Referral ID Status Reason Start Date Expiration Date Visits Re quested Visits Authorized [id number] Open 04/27/2023 1 1 * (Routine) - Open Specialty Diagnoses / Procedures Referred By Contac t Referred To Contact Renée Sky APRN, SHEILA [address] [place] [address] Anshul Tarango PA-C [address] [place] [address] [address] [place] [address] Referral ID Status Reason Start Date Expiration Date Visits Re quested Visits Authorized [id number] Open 04/27/2023 1 1 Question Answer Specify [...] your office visit at 1:30. Please call [phone] for questions or to reschedule your appointment. * (Routine) - Open Specialty Diagnoses / Procedures Referred By Contac t Referred To Contact Renée Sky APRN, CNP [address] [place] [address] Rohan Saldaña MD [address] [place] [address] Referral ID Status Reason Start Date Expiration Date Visits Re quested Visits Authorized [id number] Open 04/27/2023 1 1 Question Answer Follow [...] Smoking Cessation Renée Sky APRN, SHEILA [address] [place] [address] [place] [address] Referral ID Status Reason Start Date Expiration Date Visits Re quested Visits Authorized [id number] Open 04/27/2023 1 1 * (Routine) - Open Specialty Diagnoses / Procedures Referred By Contac t Referred To Contact Procedures Pain Renée Sky APRN, CNP [address] [facility] [address] [place] [address] Referral ID Status Reason Start Date Expiration Date Visits Re quested Visits Authorized [id number] Open 04/27/2023 1 1 * (Routine) - Open Specialty Diagnoses / Procedures Referred By Contac t Referred To Contact Procedures misc instruction Renée Sky APRN, SHEILA [address] [facility] [address] [place] [address] Referral ID Status Reason Start Date Expiration Date Visits Re quested Visits Authorized [id number] Open 04/27/2023 1 1 * (Routine) - Open Specialty Diagnoses / Procedures Referred By Contac t Referred To Contact Procedures Any questions or concerns Renée Sky APRN, SHEILA [address] [place] [address] [place] [address] Referral ID Status Reason Start Date Expiration Date Visits Re quested Visits Authorized [id number] Open 04/27/2023 1 1 * (Routine) - Open Specialty Diagnoses / Procedures Referred By Contac t Referred To Contact Diagnoses Spontaneous tension pneumothorax Procedures XR CHEST PA & LAT Renée Sky APRN, SHEILA [address] [facility] [address] [place] [address] Referral ID Status Reason Start Date Expiration Date Visits Re quested Visits Authorized [id number] Open 05/15/2023 1 1 Reason for Visit * Reason Comments Pneumothorax * Inpatient Admission (Routine) Specialty Diagnoses / Procedures Referred By Contac t Referred To Contact Diagnoses Spontaneous pneumothorax Referral ID Status Reason Start Date Expiration Date Visits Re quested Visits Authorized [id number] 1 1 Encounter Details Date Type Department Care Team (Late st Contact Info) Description 04/15/2023 6:37 AM CDT - 04/28/2023 1:34 PM CDT Hospital Encounter A4 [address] [place], [place] [address] Hailee Angulo MD [address] [place], [place] [address] Emilee Griggs MD [address] [place] [address] Sravani Chaudhary MBBS [address] [place] [address] Rommel Pierre MD [address] [place] [address] [facility] [place] [address] [place] [address] Stefany Agosto MD [address] [place] [id number] Ghazal Tan MD [address] [place] [address] Han Jacobo MD [address] [place] [address] Spontaneous pneumothorax Discharge Disposition: Snf/SNF Social History Tobacco Use Types Packs/Day Years [...] Care Physician at Discharge: Rohan Saldaña MD [phone] Admission Date: 04/15/2023 Discharge Date: 04/28/2023 Operative Procedures Performed: VATS, pleurodesis Discharge Disposition: Snf/SNF Presenting Problem/History of Present Illness HPI: 53 year old man with end stage COPD on 3L home O2, has been referred to [facility] for lung transplant eval but declined due [...] order oxygen on DC (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 ydowalkpbik-wewqirgqf-ewjkanhr 100-62.5-25 mcg Inhl DsDv Inhale 1 Inhalation once daily. Outpatient Follow-Up: PCP Total time for discharge: 33 minutes documented in this encounter Discharge Instructions * Attachments The following attachments cannot be sent through Care Everywhere. * COPD (Chronic Obstructive Pulmonary Disease) (AfterCare(R) Instructions(ER/ED)) (South African) * Spontaneous Pneumothorax (AfterCare(R) Instructions(ER/ED)) ([place] African) * Chemical Pleurodesis (Discharge Care) ([place] African) documented in this encounter Medications at Time [...] 04/28/2023 1:19 PM CDT Carl Prasad 1970 [id number] P: Discharge A: Discharged via wheelchair to TCU at 1330 escorted by nurse I: Discharge information and arrangements included: review of written discharge instructions, review of purpose and side effects of new medication, prescriptions e-Prescribed, portable oxygen sent with the patient/family., belongings list completed. R:Patient, mother, sister expressed understanding of information.. * Renée Sky APRN, QUALITY PROCESS ENGINEER - 04/27/2023 11:06 AM CDT CV SURGERY [...] Sky APRN CNP/Dr. Tarango CT Surgery Pager [phone] 04/27/2023 11:06 AM * Han Jacobo MD - 04/27/2023 9:50 AM CDT HOSPITALIST DIVISION PROGRESS NOTE 04/27/2023 Principal Problem: Spontaneous pneumothorax HPI: 53 year old man with end stage COPD on 3L home O2, has been referred to [facility] for lung transplant eval but declined due [...] liters of home oxygen Transplant offered at [facility], patient declined due to cost and care [...] as activity has increased. Plan for Disposition: [facility] pt [facility] [...] time for visit minutes Han Jacobo MD, [facility] * Carl Booker, DO - 04/27/2023 6:35 [...] to assess response. Dr. Carl Booker D.O[facility] * April Freitas, RN - 04/26/2023 1:35 PM CDT Med-Surg Care Progression Note Type: Shift to shift summary Length of stay: 11 days Code Status: Full Code Primary Problem: Spontaneous pneumothorax, persistent air leak 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 Referred to [facility] for lung transplant eval but declined due [...] 3L home O2, has been referred to [facility] for lung transplant eval but declined due [...] liters of home oxygen Transplant offered at [facility], patient declined due to cost and care [...] as activity has increased. [facility] Disposition[facility] [...] time for visit minutes Han Jacobo MD, [facility] * August Tarango MD - 04/26/2023 10:24 [...] - 04/25/2023 10:44 PM CDT Progress Note: [id number] Spontaneous pneumothorax. POD #5 TALC pleurodesis Hx: End-Stage COPD (BL O2 3-4L). Referred to [facility] for lung transplant eval but declined d/t [...] - 04/25/2023 6:42 PM CDT Progress Note: [id number] Spontaneous pneumothorax. POD #5 TALC pleurodesis Hx: End-Stage COPD (BL O2 3-4L). Referred to [facility] for lung transplant eval but declined d/t [...] Diagnosis Date COPD (chronic obstructive pulmonary disease) ([facility]) Deep vein thrombosis (DVT) ([facility]) Dietitian Visit Summary: 04/25/23: Pt [...] NUTRITION-RELATED H&P Pre-Admission Nutrition History: Usual diet BEHAVIORAL INTERVENTION SPECIALIST Other Pertinent Factors: NA Anthropometric/Physical: Height: 6' [...] this time April Duron DTR Available via [employer] * Han Jacobo MD - 04/25/2023 12:48 PM CDT HOSPITALIST DIVISION PROGRESS NOTE 04/25/2023 Principal Problem: Spontaneous pneumothorax HPI: 53 year old man with end stage COPD on 3L home O2, has been referred to [facility] for lung transplant eval but declined due [...] liters of home oxygen Transplant offered at [facility], patient declined due to cost and care [...] time for visit minutes Han Jacobo MD, [facility] * Alex Santana PA-C - 04/25/2023 8:56 [...] post tube removal. Alex Santana PA-C/Dr. Tarango [facility] Pager [phone] * Clay Farmer MD - 04/24/2023 12:23 PM CDT Pulmonary Progress Note Summary: Carl Prasad is a 53 year old man with end stage COPD on 3L home O2, has been referred to [facility] for lung transplant eval but declined due [...] a better candidate. No s/o AECOPD, continue BEHAVIORAL INTERVENTION SPECIALIST inhalers Acute on chronic hypoxic respiratory failure [...] and Critical Care Medicine [facility] Office: [phone] * Alex Santana PA-C - 04/24/2023 9:04 [...] Intermediate cares, [employer] Alex Santana PA-C/ [facility] Cardiothoracic Surgeons Pager [phone] * Ghazal Tan MD - 04/24/2023 8:16 AM CDT Images from the original note were not included. HOSPITALIST DIVISION PROGRESS NOTE Brief Summary: This is a 53 year old man with end stage COPD on 3L home O2, has been referred to [facility] for lung transplant eval but declined due [...] PLANNING: Per thoracic surgery Ghazal Tan MD [facility] Medicine Available through [employer] 8:00am-6:00 pm CHIEF COMPLAINT: Left-sided PTX failed [...] 3L home O2, has been referred to [facility] for lung transplant eval but declined due [...] PLANNING: Per thoracic surgery Ghazal Tan MD [facility] Medicine Available through [employer] 8:00am-6:00 pm CHIEF COMPLAINT: Left-sided PTX failed [...] a few days. Alex Santana PA-C/Dr. Godoy [facility] Surgeons Pager [phone] * China Quiroz, RN - 04/22/2023 9:08 AM CDT Med-Surg Care Progression Note Type: Shift to shift summary Length of stay: 7 days Code Status: Full Code Primary Problem: Spontaneous pneumothorax, persistent air leak Hx: End-stage COPD (BL O2 3L). Referred to [facility] for lung transplant eval but declined due to finances and ongoing occasional smoking. Post-surgical leukocytosis. 04/20: TALC pleurodesis Summary: Goal: pain management and mobility progression. Pt denies passing gas last night and startof shift. traveling storekeeper gave miralax, noted hypoactive bowel sounds, CT [...] 3L home O2, has been referred to [facility] for lung transplant eval but declined due [...] PLANNING: Per thoracic surgery Ghazal Tan MD [facility] Medicine Available through [employer] 8:00am-6:00 [...] resolution of airleak. Alex Santana PA-C/Dr. Godoy [facility] Sur[facility] Pager [phone] * Elizabeth Nance RN - 04/22/2023 6:29 AM CDT Med-Surg Care Progression Note Type: Shift to shift summary Length of stay: 7 days Code Status: Full Code Primary Problem: Spontaneous pneumothorax, persistent air leak Hx: End-stage COPD (BL O2 3L). Referred to [facility] for lung transplant eval but declined due [...] findings. Stool softeners ordered. Viraj Kumar MD [facility] Medicine * Verito Pereira RN - 04/21/2023 9:00 PM CDT Med-Surg Care Progression Note Type: Shift to shift summary Length of stay: 6 days Code Status: Full Code Primary Problem: Tension pneumothorax, persistent air leak, s/p VATS talc pleurodesis 04/20. End-stage COPD, 3L home O2 at baseline. Referred to [facility] for lung transplant eval but declined due [...] 04/21/2023 4:00 PM CDT Carl Prasad 1970 [id number] P. Transfer A. Transferred at 1530 to A4 unit. Transported via bed with O2 and IV Pump escorted by nurse. I. Notified no family member of transfer. Patient information and safety items addressed included how to call for help, name of assigned healthcare economics manager, Patient Information booklet, Handwashing, Respiratory Hygiene, How to Call a Response Team, initial physician orders, hourly rounding procedures, belongings checklist, unit and plan of care. R. Patient expressed understanding of information. . * Jalil Veliz - 04/21/2023 12:35 PM CDT Summary: Personal Injury Paralegal visit while rounding this unit to provide [...] family per need or request by paging [phone] or through [employer]. Rev. Chaplain Zambrano M.Div. 04/21/2023 1235 pm * Anshul Yarbrough MD - 04/21/2023 10:36 AM CDT NITS ICU Progress Note Summary: Carl Prasad is a 53 year old man with end stage COPD on 3L home O2, has been referred to [facility] for lung transplant eval but declined due [...] and Critical Care Medicine [facility] Pager: [phone] * August Tarango MD - 04/21/2023 7:43 [...] Radiology will sign off Erinn Kwok APRN-[facility] Pager [phone] M-F 7am-5pm * Devin Poole RN - 04/20/2023 11:15 AM CDT P. Admission A. Condition on Admit: alert. Patient/Family Concerns: Patient expressed concern about pain relief . I. Initial Interventions included: notified MD of patient arrival, administered medication for mid chest pain, Called [facility] for patient belongings . Orientation to Unit: Patient oriented to how to call for help, name of assigned healthcare economics manager, belongings checklist, unit and plan of [...] SCD Restraints: none Lines: peripheral ESTRELLITA Fofana [facility] Medicine ESTRELLITA Fofana [facility] This document was created using voice recognition [...] every 2 hours Nutrition: Adequate Nutrition Interventions: Business Objects consult - protein/albumin assessment Mobility: Slightly Limited [...] Progression Note Type: Shift to shift summary [id number] Length of stay: 4 days Code Status: [...] Fluids: Tolerating regular diet and thin liquids. Business Objects consulted and boost supplements added. NPO at [...] days ago. The patient was seen at [facility] and then transferred to [facility]. A CT scan and chest x-ray showed [...] still continuous air leak but less vigorous, -[id number] suction Skin: Warm, well-perfused, normal cap refill, [...] pleurodesis Masood Saenz MD * Lauren Shah, FINAL ASSEMBLER BOAT, QUALITY PROCESS ENGINEER - 04/19/2023 11:55 AM CDT INTERVENTIONAL RADIOLOGY PROGRESS NOTE Procedure date: 04/17/2023 Procedure: Placement of an 8 Indian left apical chest tube Subjective Romulo is [...] questions or concerns. Lauren Shah APRN, SHEILA [facility] Pager Number: Radiology Office: Patient [...] SCD Restraints: none Lines: peripheral ESTRELLITA Fofana [facility] Medicine This document was created using [...] Light on Outside Patient Room Fall Risk product responsibility liaison Door (NMR) Hi-Lo Bed (Versa-Care) Keep Assistive [...] respiratory status, CXR in am, determine possible VATS/pleurodesis/halfway plan, CTX for 7 days for LLL consolidation/pneumonia, IV abx I- Invasive Devices: PIV, left CT D- Discharge: Home pending medical stability * Lauren Shah, FINAL ASSEMBLER BOAT, QUALITY PROCESS ENGINEER - 04/18/2023 2:35 PM CDT INTERVENTIONAL RADIOLOGY PROGRESS NOTE Procedure date: 04/17/2023 Procedure: Placement of an 8 Indian left apical chest tube Subjective Romulo is [...] questions or concerns. Lauren Shah APRN, SHEILA [facility] Pager Number: Radiology Office: Patient Active Problem [...] still continuous air leak but less vigorous, -[id number] suction Skin: Warm, well-perfused, normal cap refill, [...] was pursuingpossible lung transplant and declined at [facility] (d/t financial reasons). I am inclined to ask CV Surgery to see him about definitive VATS/pleurodesis, but have sent a message to some [facility] transplant colleagues about whether they would approach the case any different if he may be a transplant candidatein the future. In meantime, continue chest tube -[id number] suction, repeat CXR in AM. Continue CTX for 7d for LLL consolidation/pneumonia. Continue scheduled DuoNebs + Breo inhaler (sub for home Trelegy). We will continue to follow, please call with questions. Dhaval Yao MD [facility] Pager [phone] Total patient care time 30 minutes. * [...] SCD Restraints: none Lines: peripheral ESTRELLITA Fofana [facility] Medicine This document was created using [...] 04/17/2023 3:30 PM CDT Carl Prasad 1970 [id number] P. Transfer A. Transferred at 1530 to [...] increased SOB, PT/OT following-on hold today per jewelry setter recommendation prior to CT placement U- Urologic/bowel: [...] chart reviewed. PT communicated message to this telegraphic typewriter installer that jewelry setter recommending hold therapies today, anticipate chest tube [...] Discussed care plan with patient ESTRELLITA Fofana [facility] Medicine This document was created using voice recognition software and effort was taken in order to review for accuracy, though some inadvertent typographical errors may be present. * Dhaval Yao MD - 04/17/2023 9:27 AM CDT Pulmonary Consult Progress Note Subjective/overnight events: Last night new chest pain L chest, stable O2 3L NC. CXR showed increased L PTX, suctioned increasedto -[id number] per Dr. Ross. At the moment the [...] Intake/Output Summary (Last 24 hours) at 04/17/2023 0937 Last data filed at 04/17/2023 0738 Gross [...] nurse. Dhaval Yao MD [facility] Pager [phone] Total patient care time 30 minutes. * [...] to fully evacuate space. Alondra Ross MD [phone] (pg) [phone] (office) * Pauline Rangel DO - 04/17/2023 [...] ordered for chest pain. Pauline Rangel DO [facility] Medicine Update: EKG was NSR with [...] Progression Note Type: Shift to shift summary: [id number] Length of stay: 2 days Code Status: [...] severe underlying COPD (transplant evaluation completed at [facility] ) - hope to avoid surgery as [...] stage COPD. Declined for lung transplant at [facility] due to financial concerns. 3. Hypoxia - [...] GI prophylaxis: not indicated, has a diet Orientation And Mobility Instructor Type Used: None ACCESS: PIV RESTRAINTS: not [...] Progression Note Type: Shift to shift summary [id number] Length of stay: 1 days Code Status: [...] Progression Note Type: Shift to shift summary [id number] Length of stay: 0 days Code Status: [...] PHYSICAL Patient Name: Carl Prasad Address: [address] [address] Age: 53 y.o. Sex: male Admission Date/Time: [...] chest tube placed. He was transferred to [facility] for further management. Per ED [...] prednisone as can prohibit healing - defer BEHAVIORAL INTERVENTION SPECIALIST inhaler to pulm Mild leukocytosis, likely stress de-margination - Continue to monitor CBC, no abx for now as no clear signs or sx of infection CODE STATUS: Full Code - Discussed with patient on admission DVT prophylaxis: not indicated, chest tube in place GI prophylaxis: not indicated, has a diet Orientation And Mobility Instructor Type Used: None ACCESS: PIV RESTRAINTS: not [...] encounter Procedure Notes * Lauren Shah, TRISTAN, QUALITY PROCESS ENGINEER - 04/17/2023 10:23 AM CDT Procedure Consent [...] proceed. Consent signed. Lauren Shah APRN, CNP [facility] Pager Number: Radiology Office: documented [...] pulmonary disease) (HCC) Deep vein thrombosis (DVT) ([facility]) Dietitian Visit Summary: 04/19/23: Open [...] NUTRITION-RELATED H&P Pre-Admission Nutrition History: Usual diet BEHAVIORAL INTERVENTION SPECIALIST Other Pertinent Factors: NA Anthropometric/Physical: Height: 6' [...] time Stacy Gonzalez RD LD Available via [employer] * Martin Khan, PT - 04/17/2023 9:30 AM CDT Acute Physical Therapy Evaluation Patient Name: Carl Prasad Today's Date: 04/17/2023 Admission Date: 04/15/2023 Assessment PT Assessment/Recommendations Assessment: Pt is a 53 yo male admitted for tension pneumothorax. BEHAVIORAL INTERVENTION SPECIALIST pt reports IND with all mobility without use of AD. Currenlty requiring CGA for transfers and short bout of ambulation. Pt mildlyunsteady throughout, but no overt LOB. Sats in low-mid 90s throughout session on 3.5L (3L baseline). Towards the end of session, jewelry setter came to assess pt and reported need [...] mildly unsteady gait with no overt LOB [facility] AM-PAC 6-Clicks Turning over in bed (including [...] Patient will perform supine to sit with: [place] Sit to/from Stand Patient will perform sit to/from stand transfer with: [place] Assistive Device: No assistive device Gait Level [...] Patient Name: Carl Prasad Address: [address] [place] [id number] Age:53 y.o. Sex: male Admission Date/Time: 04/15/2023 6:37 AM [facility] Attending Physician: Emilee Griggs MD I was asked to see this patient at the request of Dr. Griggs for evaluation of left sided pneumothorax. HPI: 53 yo gentleman with history of severe COPD (followed by pulmonary in [place]). Developed left chest pain yesterday. Then went to [facility] - left ptx noted. Concern for tension -needle aspiration completed, then left chest tube placed. At baseline: severe COPD. Followed by a jewelry setter in [place] - he couldn't remember the nameat the time of my visit. Has been referred to [facility] for consideration of lung transplant. Denied perfinancials [...] his permission, I reviewed pulmonary records from [facility] transplant evaluation. He was determined to be ineligible on 03/16/23 - no further data available. He had considered starting pulmonary rehab through [facility] in January, but hasn't started this due [...] severe underlying COPD (transplant evaluation completed at [facility] ) - hope to avoid surgery as [...] COPD. Followed by pulmonary. Was referred to [facility] for consideration of lung transplant - declined due to finances. Developed dyspnea yesterday. PCP thought it might be a pulled muscle. Then went to [facility] - left ptx noted. Left chest [...] Selected Services Address Phone Fax Patient Preferred [facility] Intermediate [address] [facility] [phone] -- Internal Comment last updated by Leidy Ojeda RN 04/28/2023 1045 [facility] 04/28/2023 Spoke with Erinn, they will take [...] call us back .cy 04/25/2023@2:31 PM Called [phone] , spoke with Erinn, confirmed they received the referral. Referral under review, they will call us back with update. .leonor/blair 04/25/2023@11:42 AM Called [phone] spoke with admission. They have bed, requested referral faxed over. Referral faxed to [phone] per request..leonor/ PAS: [phone] Oxygen: 3-4L NC , portable O2 from [facility] in the room Transportation: Family/friend Additional cost of transportation discussed with patient/family: N/a D/C orders, prescriptions and PAS were faxed to: [phone] ,@ 11:18 AM , phone # [phone], Updated Patient, Bedside RN, braille operator, Provider, SENIOR PRODUCT MANAGER, and Care facility of discharge arrangements. - Aggie called from [facility] and wants the pt to know they are non smoke facility. Cm met with pt & family in the room and communicated to the pt. Leidy Ojeda RN cover making machine operator Pager [phone] * Kiki Estrada, RT - 04/28/2023 7:33 [...] End-stage COPD (BL O2 3-4L). Referred to [facility] for lung transplant eval but declined due [...] d/c tomorrow pending respiratory status * Kelsie Esparaz RT - 04/27/2023 8:00 PM CDT Patient [...] End-stage COPD (BL O2 3-4L). Referred to [facility] for lung transplant eval but declined due [...] Selected Services Address Phone Fax Patient Preferred [facility] Intermediate [phone] [facility] [phone] -- Internal Comment last updated by Leidy [...] call us back .ma/cm 04/25/2023@2:31 PM Called [phone] , spoke with Erinn, confirmed they received the referral. Referral under review, they will call us back with update. m.a/cm 04/25/2023@11:42 AM Called [phone] spoke with admission. They have bed, requested referral faxed over. Referral faxed to [phone] per request.m.a/cm Potential Barriers: medical stability Care Coordination Plan & Communication with Patient/Family: pt discussed in rounding, chart reviewed. Leidy Ojeda RN cover making machine operator Pager [phone] * Tani Castañeda RN - 04/27/2023 2:53 [...] End-stage COPD (BL O2 3-4L). Referred to [facility] for lung transplant eval but declined due [...] speed with heavy UE support on AD. [facility] AM-PAC 6-Clicks Turning over in bed (including [...] Patient will perform supine to sit with: [place] Sit to/from Stand Patient will perform sit to/from stand transfer with: [place] Assistive Device: No assistive device Gait Level [...] End-stage COPD (BL O2 3-4L). Referred to [facility] for lung transplant eval but declined due [...] End-stage COPD (BL O2 3-4L). Referred to [facility] for lung transplant eval but declined due [...] manycues for diaphgramatic breathing/PLB to slow RR. [facility] AM-PAC 6-Clicks Turning over in bed (including [...] in room mobility, AE for LED (has contact center consultant), hygienes at sink when off suction INPATIENT [...] Patient Seen In: Room Family/Caregiver Present: No Orientation And Mobility Instructor Used?: NA Hearing: Within Functional Limits Lines [...] Frame Short term goals target date: 04/25/23 FDC goals target date: 05/02/23 Patient/Family Participation in [...] standing at the sink Outcome: Goal Ongoing Custodial Goals Patient will complete ADLs including: hygiene/grooming, [...] Selected Services Address Phone Fax Patient Preferred [facility] Intermediate [address] [address] [facility] [phone] -- Internal Comment last updated by Leidy Ojeda RN 04/26/2023 1254 [facility] 04/26/2023 [facility] for Melania drake , up dating her that CT is removed on 04/25, waiting for a call back. M.a/cm 04/26/2023 Spoke with Erinn, she stated her coworker is reviewing and will call us back .serena/blair 04/25/2023@2:31 PM Called [phone] , spoke with Erinn, confirmed they received the referral. Referral under review, they will call us back with update. m.a/cm 04/25/2023@11:42 AM Called [phone] spoke with admission. They have bed, requested referral faxed over. Referral faxed to [phone] per request.m.a/cm Potential Barriers: medical stability, Care Coordination Plan & Communication with Patient/Family: pt discussed in rounding. Chart reviewed Cm called and spoke with Melania shepard [phone] @admission. Provided requested information ; pt SS, and Address: [address] [place] [address] [address] , [facility] [address]. [facility] trace confirmed they can take pt tomorrow earliest 2 pm and latest 6 pm. -pt in agreement with d/c to [facility], setting up portable O2 via [facility]. Pt will call family for a ride. -cm updated the care team via secure chat. - cm called [facility] [phone] spoke with Mariia & arranged portable O2 to be delivered tomorrow before 2 pm. Will fax O2 order , H & P and Face sheet to Leidy Ojeda RN cover making machine operator Pager [phone] * Darren Humphries RT - 04/26/2023 11:49 [...] End-stage COPD (BL O2 3-4L). Referred to [facility] for lung transplant eval but declined due [...] End-stage COPD (BL O2 3-4L). Referred to [facility] for lung transplant eval but declined due [...] Selected Services Address Phone Fax Patient Preferred [facility] Pending - No Request Sent N/A [phone] [address] [facility] [phone] -- Internal Comment last updated by Leidy Ojeda, ALESSANDRA 04/25/2023 1432 04/25/2023@2:31 PM Called [phone] , spoke with Erinn, confirmed they received the referral. Referral under review, they will call us back with update. glen 04/25/2023@11:42 AM Called [phone] spoke with admission. They have bed, requested referral faxed over. Referral faxed to [phone] per request.andriy.leonor/blair [facility] Pending - No Request Sent N/A [id number] [facility] [phone] -- Internal Comment last updated by Leidy Ojeda RN 04/25/2023 1435 2nd 04/25/2023@2:33 PM LVM for Shelly @[phone] requesting for a call back with update.cy 04/25/2023@11:38 AM Spoke with Shelly @admission [phone]. They have one shared room , will review. Referral faxed to [phone] . Cy [facility] Pending - No Request Sent N/A [address] [facility] [phone] -- Internal Comment last updated by Leidy Ojeda RN 04/25/2023 1204 3rd 04/25/2023@11:39 AM Spoke with liaison Hernan and granted epic access. Glen Ojeda RN cover making machine operator Pager [phone] * Sonja Rodriguez RN - 04/25/2023 5:05 AM CDT Med-Surg Care Progression Note Type: Shift to shift summary Length of stay: 10 days Code Status: Full Code Primary Problem: Spontaneous pneumothorax, persistent air leak 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 Referred to [facility] for lung transplant eval but declined due [...] End-stage COPD (BL O2 3-4L). Referred to [facility] for lung transplant eval but declined due [...] Patient Seen In: Room Family/Caregiver Present: No Orientation And Mobility Instructor Used?: NA Hearing: Within Functional Limits Lines and Tubes: Chest Tube (L Now on water seal) Subjective (Comment): Pt in chair and agreeable to tx PRECAUTIONS Therapy Vitals SpO2: 90s Oxygen Delivery Device: Nasal Cannula Amount of Supplementary O2: 4L SAFETY INTERVENTIONS Safety Interventions Fall Risk?: Yes Safety Interventions/Patient Disposition: Standard interventions, Edmonson sitter on PATIENT IS FUNCTIONING FOLLOWS: Therapeutic [...] Frame Short term goals target date: 04/25/23 FDC goals target date: 05/02/23 Patient/Family Participation in [...] standing at the sink Outcome: Goal Ongoing Custodial Goals Patient will complete ADLs including: hygiene/grooming, dressing, toileting, independently Outcome: Goal Ongoing * Tracey Mckeon RN - 04/24/2023 2:44 PM CDT Med-Surg Care Progression Note Type: Shift to shift summary Length of stay: 9 days Code Status: Full Code Primary Problem: Spontaneous pneumothorax, persistent air leak 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 Referred to [facility] for lung transplant eval but declined due to finances and ongoing occasional smoking. Post-surgical leukocytosis. 04/20: TALC pleurodesis POD x4 Summary: Severe pain from chest tube site ongoing issue. CT found kinked this AM and afterwards pain was better controlled. CT placed on suction trial today and possible plan to clamp CT at [place]. F- Feeding & Fluids: Tolerating regular diet, [...] very slow, shuffled gait. Mildly unsteady throughout [facility] AM-PAC 6-Clicks Turning over in bed (including [...] Risk?: Yes Safety Interventions/Patient Disposition: Standard interventions, Edmonson sitter on, In chair, All needs within reach GOALS-The interventions during this session were provided to address the goals set forth on evaluation and are ongoing unless otherwise indicated. Time Frame Goals target date: 05/01/23 Supine to Sit Patient will perform supine to sit with: [place] Sit to/from Stand Patient will perform sit to/from stand transfer with: [place] Assistive Device: No assistive device Gait Level [...] this pm. D/c tbd Leidy Ojeda RN cover making machine operator Pager [phone] * Jesika Osborne RN - 04/24/2023 4:10 AM CDT Med-Surg Care Progression Note Type: Shift to shift summary Length of stay: 9 days Code Status: Full Code Primary Problem: Spontaneous pneumothorax, persistent air leak 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 Referred to [facility] for lung transplant eval but declined due [...] for additional information if needed. * Verito Periera RN - 04/23/2023 7:35 PM CDT Problem: Falls/Injury-Risk of Goal: Absence of Falls/Injury Outcome: Ongoing Problem: Pain Goal: Exhibits reduction in pain to a level of acceptable comfort Outcome: Ongoing Med-Surg Care Progression Note Type: Shift to shift summary Length of stay: 8 days Code Status: Full Code Primary Problem: Spontaneous pneumothorax, persistent air leak 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 Referred to [facility] for lung transplant eval but declined due [...] End-stage COPD (BL O2 3-4L). Referred to [facility] for lung transplant eval but declined due [...] End-stage COPD (BL O2 3L). Referred to [facility] for lung transplant eval but declined due [...] No change to CT air leak, still wmkxjtzswiaa-db-oktftucvrl at 1. H- Head OUT of Bed [...] End-stage COPD (BL O2 3L). Referred to [facility] for lung transplant eval but declined due [...] No change to CT air leak, still srlzfvjqlmok-gr-xvvnedrgmd at 1. H- Head OUT of Bed [...] no crepitus. D- Discharge: TBD * Elizabeth Nacne RN - 04/22/2023 4:29 AM CDT Problem: [...] Light on Outside Patient Room Fall Risk product responsibility liaison Door (NMR) Frequent Re-Orientation and Repetitive Reminders [...] and medicate for pain. Plan transfer to [facility] shortly. DESI ALONSO RN * Kelsie [...] be discontinued as soon as possible. This telegraphic typewriter installer decided to keep elena in due to [...] To ICU with RN and NA full pulpwood contractor. * Kelsea Stephen SW - 04/20/2023 10:24 [...] d/c needs pending medical stability. Kelsea Samson, COUNTERINTELLIGENCE ANALYST Social Work Ext [phone] * April Pierre - 04/20/2023 9:54 AM CDT Pt in PACU. He is quite drowsy, skin cool on extremities, trunk warm. He follows commands. Decreased breath sounds with cracking on inspiration. Unable to ausciltate heart sounds. Hr st on pulpwood contractor. No ectopy. Cuff and art line pressures [...] LOB. Gait in room 2/2 chest tube [facility] AM-PAC 6-Clicks Turning over in bed (including [...] Patient will perform supine to sit with: [place] Sit to/from Stand Patient will perform sit to/from stand transfer with: [place] Assistive Device: No assistive device Gait Level [...] reach feet for LE dressing. Was issued contact center consultant and educated on use. Pt does not appear safe for home alone at this time. Will follow for functionalgoals. Thank you. Recommendations For Next Session: transfers, in room mobility, AE for LED (has contact center consultant), hygienes at sink when off suction INPATIENT [...] Patient Seen In: Room Family/Caregiver Present: No Orientation And Mobility Instructor Used?: NA Hearing: Within Functional Limits Lines and Tubes: Chest Tube (left) Subjective (Comment): Pt motivated to get OOB this AM. PRECAUTIONS Therapy Vitals SpO2: 98% Oxygen Delivery Device: Nasal Cannula Amount of Supplementary O2: 3.5L SAFETY INTERVENTIONS Safety Interventions Fall Risk?: Yes Safety Interventions/Patient Disposition: Standard interventions, Edmonson sitter on, In chair, Call light in [...] is independent with: ADLs, Shopping, Meal Preparation, Shrinking Machine Operator, Medication Management, Driving (prepares easy meals) Patient [...] ADL/IADL STATUS Current ADL Status Equipment Provided: Chef German Eating Assistance: Independent Grooming Assistance: Set-up ADL Comments: Completed grooming with set up assist. Unable to reach feet for LE dressing. Current IADL Status Meal Preparation: needs assist Medication Management: per baseline Shrinking Machine Operator: per baseline FUNCTIONAL MOBILITY Bed Mobility Rolling: [...] Frame Short term goals target date: 04/25/23 FDC goals target date: 05/02/23 Patient/Family Participation in [...] standing at the sink Outcome: Goal Ongoing Poured Concrete Wall Technician Goals Patient will complete ADLs including: hygiene/grooming, [...] banded. No output. Patient breathing coarse, on BEHAVIORAL INTERVENTION SPECIALIST 3L O2. Problem: Communication Goal: Demonstrates/exhibits ability [...] shift Pt denied pain following interventions on product support specialist. * Tyler Crowell RN - 04/17/2023 2:26 AM CDT Problem: Falls/Injury-Risk of Goal: Absence of Falls/Injury Outcome: Met this shift Flowsheets Taken 04/17/2023 0002 by Tyler Crowlel RN Environmental Safety Interventions: Standard Interventions in [...] to the emergency department via EMS from [facility] for evaluation of a pneumothorax. Per EMS, the patient was initially brought to [facility] ED with 2 days of shortness of breath, and his initialoxygen saturation was 50%. Chest tube placement Admitted from: Home Prior: Living Arrangements: Alone Support Systems: Family members- mother and siblings, Yelitza Sheikh [phone] Primary decision maker: Patient DME prior to [...] Dr. Mena for primary care at the [facility]. When the pt is ready for d/c, he says his sister or friend will provide transportation. SW phone call with his sister Yelitza Sheikh who says she would like to be updated [phone]. She says the pt really needs a different dwelling that has no stairs. [facility]. Barriers to discharge: medical stability Care management will continue to follow. JORDAN Borjas, DIGITAL X RAY SERVICE ENGINEER Pager: [phone] 04/16/2023 2:13 PM * Eva Redding, RT [...] grams talc pleurodesis. Surgeon: Anshul Tarango MD Workers Compensation Examiner: Renée Sky NP Dictation: Under general anesthesia [...] approximated with interrupted 3- 0 nylon sutures. high school assistant principal: Renée Sky NP assisted with opening, closure, [...] to the emergency department via EMS from [facility] for evaluation of a pneumothorax. Per EMS, the patient was initially brought to [facility] ED with 2 days of shortness of breath, and his initialoxygen saturation was 50%. Xray at [facility] showed a left sided tension pneumothorax. A chest tube was placed, but the hospital felt that they could not adequately care for the patient there, so [facility]was [facility]. The patient received 1 L of normal [...] Shortness of breath Ventricular Rate: 98 QRS [place]: 73 Intervals: OH 142, QRSD 86, QTc 438 Interpretation: Sinus [...] of Health affecting care: None Stabilization Course: (0672) - The patient arrived directly into Stabilization Room 3 due to the severity of the patient's condition. A Med Team STAT was called and I was paged and present at bedside awaiting patient's arrival. The patient was transferred to an emergency center bed. History and rapid physical was performed. Patient was immediately placed on continual cardiac monitoring and pulse oximetry. (7688) - Portable chest X-ray was performed. (1765) - I reviewed the patient's vital signs, [...] J44.1 DISPOSITION: Admit to the care of [facility] New Prescriptions No medications on file [...] is accurate. Hailee Angulo MD 04/15/23 04/15/2023 [facility] EMERGENCY DEPARTMENT * Tia Tam RN - 04/15/2023 6:38 AM CDT Patient arrives via EMS from [facility] with c/o pneumothorax with SOB. Hx of COPD, on 3 L at baseline. Patient had reported 2 days of SOB. At home oxygen saturations were 50%. Upon arrival to [facility] ED patient was noted to have a spontaneous L sided pneumothorax. Needle decompression done and chest tube placed prior to transfer. Patient was placed on high flow oxygen en route. Patient arrives A/O, reports pain to L side chest 02/25. * Moo Borrego - 04/15/2023 6:23 AM CDT Transfer to [facility] Information Transferring facility: [facility] EDMD taking transfer request: Link Other Wolbach MD / specialist notified: none Special needs [...] - 04/15/2023 4:51 AM CDT Transfer to [facility] Information Transferring facility: [facility] EDMD taking transfer request: Karlo Lam Wolbach MD / specialist notified: None Special needs [...] admission medications were reviewed with patient and [facility] records. The BEHAVIORAL INTERVENTION SPECIALIST medication list has been updated and reflected in the chart below. Please use the BEHAVIORAL INTERVENTION SPECIALIST medication section for ordering home doses during admission. Medication related issues: 1. All medications added to BEHAVIORAL INTERVENTION SPECIALIST med list. 2. No recent fill records, patient states he pays espinal for inhalers, was able to verify correct medications that align with [facility] ED list. PRIOR TO ADMISSION MEDICATION LIST: Prior to Admission Medications Prescriptions Last Dose Informant Patient Reported? Taking? albuterol HFA (PROVENTIL;VENTOLIN HFA) 90 mcg/actuation Inhl inhaler PRN Patient Yes Yes Sig: Inhale 2 puffs every 4 (four) hours as needed. aspirin 81 mg oral chewable tablet PRN Patient Yes Yes Sig: Chew 1 tablet (81 mg) once daily. yobkqzchffj-eneukncab-lfetfowz 100-62.5-25 mcg Inhl DsDv 04/14/2023 Patient Yes Yes Sig: Inhale 1 Inhalation once daily. Facility-Administered Medications: None This patient obtains medications from [facility]. Thank you for the opportunity to participate in the care of this patient. Jeffrey Dueñas, Chief Console Operator Phone #:[phone] or [phone] Time spent reconciling meds:10 min Location: face to face encounter Addendum: I have reviewed and agree with the assessment made by the pharmacy laboratory technician. Sushila Gallagher, Pharm D, BCCCP, BCPS documented [...] SIGNED BY SCARLETT MALDONADO M.D. Renée Sky FINAL ASSEMBLER BOAT, QUALITY PROCESS ENGINEER XRAY ORDERABLE * EKG (04/27/2023 6:37 AM CDT) Only the most recent of3 resultswithin the time period is included. EKG HVI ENMACARISSA Comment: ?[facility] ? Test Date: ?2023-04-27 Pat Name: ? CARL BINTA ?Department: ?? A4 ?Room: ? A481 Gender: ? M ?Principal Account Clerk: ?? [id number] : ?1970 ? Requested By: CARL BOOKER MD Order Number: [id number] ?Reading MD: ?? Eugenio Live MD ? Measurements Intervals ?[place] ? Rate: ? 106 ?P: ?73 [place]: ? 144 ?QRS: ?59 QRSD: ? 90 ? T: ?66 QT: ? 337 ? QTc: ?449 ? Interpretive Statements SINUS TACHYCARDIA ABNORMAL RHYTHM ECG Compared to ECG 04/17/2023 05:52:38 Sinus rhythm no longer present Electronically Signed On 04-30-2023 10:52:05 CDT by Eugenio Live MD 04/27/2023 6:37 AM CDT Carl Booker DO EKG ORDERABLE Performing Organization Address City/State/[place] Co de Phone Number [facility] [address] [facility] [place], [place] [id number] * XR CHEST AP PORT (04/27/2023 6:36 [...] mg/dL ATELLICA ANALYZER 04/26/2023 1:13 PM CDT [facility] Est GFR (CKD-EPI) >60.00 >60.00 mL/min/1. 73m2 ATELLICA ANALYZER 04/26/2023 1:13 PM CDT [facility] Comment:Calculation based on the Chronic Kidney Disease Epidemiology Collaboration (CKD-EPI) equation refit without adjustment for race. Blood 04/26/2023 10:5 6 AM CDT 04/26/2023 11:48 AM CDT Han Jacobo MD CHEMISTRY ORDERABLE [facility] [address] [place] [id number] * Potassium, Serum (04/26/2023 10:56 AM CDT) Only the most recent of4 resultswithin the time period is included. Potassium 4.6 3.4 - 5.1 mmol/L ATELLICA ANALYZER 04/26/2023 1:03 PM CDT [facility] Blood 04/26/2023 10:5 6 AM CDT 04/26/2023 11:48 AM CDT Han Jacobo MD CHEMISTRY ORDERABLE Performing Organization Address City/[facility]/ZIP Co de Phone Number [facility] [address] [facility] [place] [address] * Magnesium (04/26/2023 10:56 AM CDT) Only the most recent of8 resultswithin the time period is included. Magnesium 1.8 1.6 - 2.6 mg/dL ATELLICA ANALYZER 04/26/2023 12:14 PM CDT [facility] Blood 04/26/2023 10:5 6 AM CDT 04/26/2023 11:48 AM CDT Jesika Osborne RN CHEMISTRY ORDERABLE Performing Organization Address City/[facility]/ZIP Co de Phone Number [facility] [address] [address] * (ABNORMAL) CBC / DIFF (04/25/2023 4:39 AM CDT) Only the most recent of6 resultswithin the time period is included. WBC 8.9 4.3 - 10.8 K/uL 04/25/2023 5:01 AM CDT [facility] RBC 3.65(L) 4.60 - 6.20 M/uL 04/25/2023 5:01 AM CDT [facility] Hemoglobin 10.4(L) 14.0 - 18.0 gm/dL 04/25/2023 5:01 AM T [facility] Hematocrit 32.6(L) 40.0 - 54.0 % 04/25/2023 5:01 AM [facility] MCV 89 80 - 100 fL 04/25/2023 5:01 AM [facility] MCH 29 27 - 33 pg 04/25/2023 5:01 AM [facility] MCHC 32(L) 33 - 36 gm/dL 04/25/2023 5:01 AM [facility] RDW 12.3 11.5 - 14.5 % 04/25/2023 5:01 AM [facility] Platelet Count 363 150 - 400 K/UL 04/25/2023 5:01 AM [facility] MPV 9.5 6.5 - 12 fL 04/25/2023 5:01 AM [facility] PMN % 60.7 % 04/25/2023 5:01 AM [facility] IG % 1.5(H) <=1.0 % 04/25/2023 5:01 AM [facility] Comment:Immature granulocyte s often indicate left shift when outside of normal limits. Lymphocyte % 13.5 % 04/25/2023 5:01 AM [facility] Monocyte % 13.1 % 04/25/2023 5:01 AM [facility] Eosinophil % 10.4 % 04/25/2023 5:01 AM [facility] Basophil % 0.8 % 04/25/2023 5:01 AM [facility] PMN Absolute 5.39 1.80 - 7.80 K/uL 04/25/2023 5:01 AM [facility] IG ABSOLUTE 0.13(H) 0.00 - 0.00 K/uL 04/25/2023 5:01 AM [facility] Lymphocyte Absolute 1.20 1.00 - 4.00 K/uL 04/25/2023 5:01 AM [facility] Monocyte Absolute 1.16(H) 0.00 - 1.00 K/uL 04/25/2023 5:01 AM [facility] Eosinophil Absolute 0.92(H) 0.00 - 0.45 K/uL 04/25/2023 5:01 AM [facility] Basophil Absolute 0.07 0.00 - 0.20 K/uL 04/25/2023 5:01 AM [facility] Nucl RBC % 0.0 0.0 - 0.0 /100 WBC 04/25/2023 5:01 AM [facility] Nucl RBC Absolute 0.00 0.00 - 0.00 K/uL 04/25/2023 5:01 AM [facility] Blood 04/25/2023 4:39 AM CDT 04/25/2023 4:55 AM CDT Ghazal Tan MD HEMATOLOGY ORDERABLE [facility] [address] [place], [place] [phone] * (ABNORMAL) Basic Metabolic Profile Magnesium (04/25/2023 4:39 AM CDT) Only the most recent of4 resultswithin the time period is included. Sodium 138 136 - 145 mmol/L ATELLICA ANALYZER 04/25/2023 5:23 AM [facility] Potassium 4.1 3.4 - 5.1 mmol/L ATELLICA ANALYZER 04/25/2023 5:23 AM [facility] Chloride 98 98 - 108 mmol/L ATELLICA ANALYZER 04/25/2023 5:23 AM [facility] Carbon Dioxide 36(H) 20 - 31 mmol/L ATELLICA ANALYZER 04/25/2023 5:23 AM [facility] BUN (Urea Nitro) 13 9 - 23 mg/dL ATELLICA ANALYZER 04/25/2023 5:23 AM [facility] Creatinine 0.72(L) 0.73 - 1.18 mg/dL ATELLICA ANALYZER 04/25/2023 5:23 AM [facility] Est GFR (CKD-EPI) >60.00 >60.00 mL/min/1. 73m2 ATELLICA ANALYZER 04/25/2023 5:23 AM [facility] Comment:Calculation based on the Chronic Kidney Disease Epidemiology Collaboration (CKD-EPI) equation refit without adjustment for race. Glucose 98 74 - 106 mg/dL ATELLICA ANALYZER 04/25/2023 5:23 AM CDT [facility] Calcium, Serum 9.0 8.7 - 10.4 mg/dL ATELLICA ANALYZER 04/25/2023 5:23 AM CDT [facility] Anion Gap 4.0 0.0 - 15.0 mmol/L ATELLICA ANALYZER 04/25/2023 5:23 AM CDT [facility] Magnesium 1.6 1.6 - 2.6 mg/dL ATELLICA ANALYZER 04/25/2023 5:23 AM CDT [facility] Blood 04/25/2023 4:39 AM CDT 04/25/2023 4:55 AM CDT Ghazal Tan MD CHEMISTRY ORDERABLE Performing Organization Address [facility]/[place] Co de Phone Number [facility] [address] [facility] [place] [address] * Blood Aerobic (1 Bottle) Culture (04/23/2023 11:52 AM CDT) Blood Culture (<5 Years Old/Short Draw) No growth 5 days. 04/28/2023 3:05 PM CDT [facility] Blood STRUCTURE OF RIGHT HAND / Unknown 04/23/2023 11:52 AM CDT 04/23/2023 11:52 AM CDT Ghazal Tan MD MICROBIOLOGY ORDERAB LE Performing Organization Address City/[facility]/ZIP Co de Phone Number [facility] [address] [place] [address] * Extra Tube-EDTA (Lab Use Only) (04/22/2023 4:44 AM CDT) Only the most recent of2 resultswithin the time period is included. Blood 04/22/2023 4:44 AM CDT 04/22/2023 5:38 AM CDT Stefany Agosto MD HEMATOLOGY ORDERABLE [facility] [address] [place] [address] * CT Abdomen & Pelvis w/o Oral [...] * (ABNORMAL) Hemoglobin (04/21/2023 5:13 AM CDT) [facility] Hemoglobin 13.8(L) 14.0 - 18.0 gm/dL 04/21/2023 5:43 AM CDT [facility] Blood 04/21/2023 5:13 AM CDT 04/21/2023 5:36 AM CDT Sravani HARO HEMATOLOGY ORDERABL E Performing Organization Address City/[facility]/[place] Co de Phone Number [facility] [address] [place] [address] * ABORh Confirm (Lab Use Only) (04/20/2023 11:55 AM CDT) [facility] Group and Rh B Positive 04/20/2023 12:51 PM CDT [facility] Blood ARTERIAL LINE SUBMITTED SPECIMEN / Unknown 04/20/2023 11:55 AM CDT 04/20/2023 12:06 PM CDT Sravani GUTIERREZ BLOOD BANK ORDERABL E Performing Organization Address City/[facility]/ZIP Co de Phone Number [facility] [address] [place] [address] [facility] [address] [place] [address] * Protime/INR (04/20/2023 11:55 AM CDT) Only the most recent of3 resultswithin the time period is included. [facility] INR 1.0 0.9 - 1.2 04/20/2023 12:32 PM CDT [facility] Blood ARTERIAL LINE SUBMITTED SPECIMEN / Unknown 04/20/2023 11:55 AM CDT 04/20/2023 12:08 PM CDT Sravani HARO COAGULATION ORDERAB LE Performing Organization Address City/[facility]/ZIP Co de Phone Number [facility] [address] [place] [address] * Culture-Anaerobe (04/20/2023 8:43 AM CDT) CULT-ANAEROBE No anaerobic growth in 5 days. SCOTTY 04/25/2023 11:41 AM CDT [facility] Site-Microbiology PLEURAL FLUID SPECIMEN / Unknown 04/20/2023 8:43 AM CDT Comment:Pre-op diagnosis: Air leak [J93.82] August Tarango MD MICROBIOLOGY ORDERAB LE Performing Organization Address [facility]/[place] Co de Phone Number [facility] [address] [place] [address] * Culture-Aerobic (04/20/2023 8:43 AM CDT) Aerobic Culture No growth 48 hours. SCOTTY 04/22/2023 11:00 AM CDT [facility] Gram Stain Result No bacteria seen. 04/22/2023 11:00 AM CDT [facility] Gram Stain Result Many WBC's / LPF 04/22/2023 11:00 AM CDT [facility] Site-Microbiology PLEURAL FLUID SPECIMEN / Unknown 04/20/2023 8:43 AM CDT Comment:Pre-op diagnosis: Air leak [J93.82] August Tarango MD MICROBIOLOGY ORDERAB LE Performing Organization Address City/[facility]/ZIP Co de Phone Number [facility] [address] [place] [address] * Surgery Olympus Video/Pics (04/20/2023 7:05 AM CDT) [facility] OR VIDEO OLYMPUS HVI TINOALE 04/20/2023 7:05 AM CDT August Tarango MD PROCEDURE ORDERABLE Performing Organization Address [facility]/[place] Co de Phone Number [facility] [address] [facility] [place] [address] * Type & Screen (04/18/2023 8:14 AM CDT) Group and Rh B Positive 04/20/2023 11:24 AM CDT [facility] Antibody Screen Negative 04/20/2023 11:24 AM CDT [facility] Blood 04/18/2023 8:14 AM CDT 04/20/2023 10:49 AM CDT Sravani HARO BLOOD BANK ORDERABL E Performing Organization Address City/[facility]/[place] Co de Phone Number [facility] [address] [place] [address] [facility] [address] [facility] [place] [address] * (ABNORMAL) Gases Venous Peripheral (04/18/2023 8:14 AM CDT) pH Venous 7.37 7.30 - 7.40 04/18/2023 8:37 AM CDT [facility] O2 Sat Venous 79.4 60.0 - 80.0 % 04/18/2023 8:37 AM T [facility] pO2 Venous 43 35 - 45 mm Hg 04/18/2023 8:37 AM T [facility] Base Excess Venous 9.7(H) -3.0 - 2.0 mmol/L 04/18/2023 8:37 AM T [facility] PCO2 VENOUS 67(H) 36 - 51 mm Hg 04/18/2023 8:37 AM T [facility] HCO3 Venous 38(H) 22 - 29 mmol/L 04/18/2023 8:37 AM CDT [facility] Blood 04/18/2023 8:14 AM CDT 04/18/2023 8:27 AM CDT Sravani HARO CHEMISTRY ORDERABLE [facility] [address] [address] * IR SPECIAL PROCEDURES (04/17/2023 3:02 PM CDT) Anatomical Region Laterality Modality X-Ray Angiograph y 04/17/2023 5:27 PM CDT Impressions 04/17/2023 5:30 PM CDT IMPRESSION: Placement of 8 Indian left apical chest tube as described above. Narrative 04/17/2023 5:30 PM CDT Chest tube placement. 8 Indian left apical chest tube placement PROCEDURES: Left [...] advanced into the pleural space. A 10 Indian tube was advanced over the wire and curled within the pleural space. ??The tube were secured to the skin and dressed. ??The patient tolerated the procedure well and there were no immediate complications. ??The patient was transferred to the floor in stable condition. Procedure Note Rohan Quintero MD - 04/17/2023 Chest tube placement. 8 Indian left apical chest tube placement PROCEDURES: Left [...] was advancedinto the pleural space. A 10 Indian tube was advanced over the wire andcurled within the pleural space. The tube were secured to the skin anddressed. The patient tolerated the procedure well and there were noimmediate complications. The patient was transferred to the floor instable condition. IMPRESSION IMPRESSION: Placement of 8 Indian left apical chest tube as describedabove. Dhaval [...] ng/mL ATELLICA ANALYZER 04/17/2023 2:51 PM CDT [facility] Blood 04/17/2023 6:46 AM CDT 04/17/2023 7:06 AM CDT Narrative [facility] - 04/17/2023 2:51 PM CDT PROCALCITONIN [...] septic shock. ? Sravani GUTIERREZ CHEMISTRY ORDERABLE [facility] [address] [facility] [address] [place], [place] [phone] * High-Sensitivity Troponin I (TNIH) (04/17/2023 6:46 AM CDT) HIGH-SENSITIVI TY TROPONIN I 10 <=53 ng/L ATELLICA ANALYZER 04/17/2023 7:37 AM CDT [facility] Blood 04/17/2023 6:46 AM CDT 04/17/2023 7:06 AM CDT Pauline Rangel DO CHEMISTRY ORDERABLE [facility] [address] [address] * (ABNORMAL) Basic Metabolic Profile (04/16/2023 6:56 AM CDT) Only the most recent of2 resultswithin the time period is included. Sodium 139 136 - 145 mmol/L ATELLICA ANALYZER 04/16/2023 7:46 AM CDT [facility] Potassium 4.3 3.4 - 5.1 mmol/L ATELLICA ANALYZER 04/16/2023 7:46 AM [facility] Chloride 100 98 - 108 mmol/L ATELLICA ANALYZER 04/16/2023 7:46 AM [facility] Carbon Dioxide 36(H) 20 - 31 mmol/L ATELLICA ANALYZER 04/16/2023 7:46 AM [facility] BUN (Urea Nitro) 15 9 - 23 mg/dL ATELLICA ANALYZER 04/16/2023 7:46 AM [facility] Creatinine 0.90 0.60 - 1.10 mg/dL ATELLICA ANALYZER 04/16/2023 7:46 AM [facility] Est GFR (CKD-EPI) >60.00 >60.00 mL/min/1. 73m2 ATELLICA ANALYZER 04/16/2023 7:46 AM [facility] Comment:Calculation based on the Chronic Kidney Disease Epidemiology Collaboration (CKD-EPI) equation refit without adjustment for race. Glucose 112(H) 74 - 106 mg/dL ATELLICA ANALYZER 04/16/2023 7:46 AM [facility] Calcium, Serum 9.6 8.7 - 10.4 mg/dL ATELLICA ANALYZER 04/16/2023 7:46 AM [facility] Anion Gap 3.0 0.0 - 15.0 mmol/L ATELLICA ANALYZER 04/16/2023 7:46 AM [facility] Blood Line - Mixed Venous / Unknown 04/16/2023 6:56 AM CDT 04/16/2023 7:14 AM CDT Emilee Griggs MD CHEMISTRY ORDERA BLE Performing Organization Address [facility]/[place] Co de Phone Number [facility] [address] [place] [address] * COVID-19 (PUI) (04/15/2023 7:14 AM CDT) SARS-CoV-2 by PCR Negative for SARS-CoV-2 RNA by PCR Negative for SARS-CoV-2 RNA by PCR CEPHEID INFINITY ANALYZER 04/15/2023 7:47 AM CDT [facility] Nasopharynx 04/15/2023 7:14 AM CDT 04/15/2023 7:14 AM CDT Hailee Angulo MD MICROBIOLOGY ORDERAB LE Performing Organization Address [facility] de Phone Number [facility] [address] [place] [address] * Extra Tube PST (Lab Use Only) (04/15/2023 6:55 AM CDT) Blood 04/15/2023 6:55 AM CDT 04/15/2023 7:00 AM CDT Hailee Angulo MD CHEMISTRY ORDERABLE Performing Organization Address [facility]/[place] Co de Phone Number [facility] [address] [place] [address] * Extra Tube-SST (Lab Use Only) (04/15/2023 6:55 AM CDT) Blood 04/15/2023 6:55 AM CDT 04/15/2023 7:03 AM CDT Hailee Angulo MD CHEMISTRY ORDERABLE Performing Organization Address [facility]/[place] Co de Phone Number [facility] [address] [place] [address] * Extra Tube-Blood Bank (Lab Use Only) (04/15/2023 6:55 AM CDT) Blood 04/15/2023 6:55 AM CDT 04/15/2023 6:58 AM CDT Hailee Angulo MD BLOOD BANK ORDERABLE [facility] [address] [place] [address] * (ABNORMAL) LFTs (04/15/2023 6:55 AM CDT) ALT <9 7 - 40 U/L ATELLICA ANALYZER 04/15/2023 7:32 AM CDT [facility] Alkaline Phosphatase 85 46 - 116 U/L ATELLICA ANALYZER 04/15/2023 7:32 AM T [facility] AST (SGOT) 8(L) 13 - 40 U/L ATELLICA ANALYZER 04/15/2023 7:32 AM CDT [facility] Protein Total 6.6 5.7 - 8.2 g/dL ATELLICA ANALYZER 04/15/2023 7:32 AM CDT [facility] Albumin 3.7 3.4 - 5.0 g/dL ATELLICA ANALYZER 04/15/2023 7:32 AM CDT [facility] BILIRUBIN-DIRECT 0.11 <0.40 mg/dL ATELLICA ANALYZER 04/15/2023 7:32 AM CDT [facility] Bilirubin-Total 0.3 0.3 - 1.2 mg/dL ATELLICA ANALYZER 04/15/2023 7:32 AM CDT [facility] Blood 04/15/2023 6:55 AM CDT 04/15/2023 7:00 AM CDT Hailee Angulo MD CHEMISTRY ORDERABLE [facility] [address] [place] [address] * POCT Chloride (04/15/2023 6:48 AM CDT) POCT CHLORIDE 100 99 - 111 mmol/L 04/15/2023 6:51 AM CDT [facility] 04/15/2023 6:48 AM CDT 04/15/2023 6:51 AM CDT Hailee Angulo MD LAB POINT OF CARE TE ST RESULTS Performing Organization Address City/[facility]/ZIP Co de Phone Number [facility] [address] [place] [address] * POCT CREATININE (04/15/2023 6:48 AM CDT) POCT Creatinine 0.8 0.7 - 1.3 mg/dL 04/15/2023 6:51 AM CDT [facility] 04/15/2023 6:48 AM CDT 04/15/2023 6:51 AM CDT Hailee Angulo MD LAB POINT OF CARE TE ST RESULTS Performing Organization Address [facility]/[place] Co de Phone Number [facility] [address] [place] [address] * POCT Lac (04/15/2023 6:48 AM CDT) POCT LACTIC ACID 0.8 0.7 - 2.1 mmol/L 04/15/2023 6:51 AM CDT [facility] 04/15/2023 6:48 AM CDT 04/15/2023 6:51 AM CDT Hailee Angulo MD LAB POINT OF CARE TE ST RESULTS Performing Organization Address City/[facility]/[place] Co de Phone Number [facility] [address] [place] [address] * POCT Ca, Ionized (04/15/2023 6:48 AM CDT) POCT CA IONIZED 1.23 1.13 - 1.32 mmol/L 04/15/2023 6:51 AM T [facility] 04/15/2023 6:48 AM CDT 04/15/2023 6:51 AM CDT Hailee Angulo MD LAB POINT OF CARE TE ST RESULTS Performing Organization Address City/State/[place] Co de Phone Number [facility] [address] [address] * (ABNORMAL) POCT VBG/Na/K/Glu (04/15/2023 6:48 AM CDT) [facility] POCT pH Venous 7.25(L) 7.30 - 7.40 04/15/2023 6:51 AM [facility] POCT pCO2 Venous 86(HH) 36 - 51 mm Hg 04/15/2023 6:51 AM [facility] POCT pO2 Venous 23(L) 35 - 45 mm Hg 04/15/2023 6:51 AM T [facility] POCT HCO3 VENOUS 38(H) 22 - 29 mmol/L 04/15/2023 6:51 AM T [facility] POCT BASE EXCESS 6.6(H) -3.0 - 2.0 mmol/L 04/15/2023 6:51 AM [facility] POCT CSO2 27.8(L) 92.0 - 98.0 %SAT 04/15/2023 6:51 AM T [facility] POCT cTCO2 40.2 mmol/L 04/15/2023 6:51 AM T [facility] POCT SODIUM 141 133 - 144 mmol/L 04/15/2023 6:51 AM [facility] POCT POTASSIUM 4.7 3.5 - 5.0 mmol/L 04/15/2023 6:51 AM [facility] POCT Glucose 114(H) 60 - 100 mg/dL 04/15/2023 6:51 AM [facility] 04/15/2023 6:48 AM CDT 04/15/2023 6:51 AM CDT Hailee Angulo MD LAB POINT OF CARE TE ST RESULTS [facility] [address] [address] documented in this encounter Visit Diagnoses Diagnosis [...] Starting on Angela 04/20/23 at 0910, Until Anglea 04/20/23 at 1103, Phase 1, ACUTE SURGICAL [...] documented as of this encounter Care Teams Physics Teacher Relationship Specialty Start Date End Date None, PCP - General 04/15/23 04/16/23 Clinic, No Primary PCP - [facility] 04/15/23 Rohan Saldaña MD [address] [place] [address] PCP - General 04/17/23 documented as of this encounter
--- OUTSIDE RECORDS SUMMARY | 2023-10-02 16:57 | XMS_ITS | Encounter Summary ---
Author Name Unknown Organization [facility] Address [address] [place] [address] Care Team Providers Care Director Perioperative Name Role Phone Clinic, No Primary Unavailable Unavailable Rohan Saldaña MD Primary Care Provider [phone]- [phone] Reason for Referral * (Routine) - Open Specialty Diagnoses / Procedures Referred By Contac t Referred To Contact Diagnoses Spontaneous tension pneumothorax Procedures XR CHEST PA & LAT Renée Sky APRN, SAFETY PATROL OFFICER [address] [facility] [address] [place] [address] Referral ID Status Reason Start Date Expiration Date Visits Re quested Visits Authorized [id number] Open 05/15/2023 1 1 Reason for Visit * (Routine) - Open Specialty Diagnoses / Procedures Referred By Contac t Referred To Contact Diagnoses Spontaneous tension pneumothorax Procedures XR CHEST PA & LAT Renée Sky APRN, SAFETY PATROL OFFICER [address] [facility] [address] [place] [address] Referral ID Status Reason Start Date Expiration Date Visits Re quested Visits Authorized [id number] Open 05/15/2023 1 1 Encounter Details Date Type Department Care Team (Latest Contact Info) Description 05/15/2023 12:10 PM CDT - 05/15/2023 11:59 PM CDT Hospital Encounter [facility] [address] [place] [address] Discharge Disposition: Returning Home/Self Care Social History [...] hours as needed. 90 mL 0 04/28/2023 [id number] lanter 100-62.5-25 mcg Inhl DsDv Inhale 1 [...] with changes of emphysema. Procedure Note Arturo Castor MD - 05/15/2023 EXAM: XR CHEST PA [...] SIGNED BY ARTURO CASTRO M.D. Renée Sky AUTOS DISASSEMBLER, SAFETY PATROL OFFICER XRAY ORDERABLE documented in this encounter Visit Diagnoses Diagnosis Spontaneous tension pneumothorax documented in this encounter Care Teams Director Perioperative Relationship Specialty Start Date End Date Clinic, No Primary PCP - [facility] Care Clinic 04/15/23 Rohan Saldaña MD [address] [place] [address] PCP - General 04/17/23 documented as of this encounter
--- OUTSIDE RECORDS SUMMARY | 2023-10-02 16:57 | XMS_ITS | Clinical Summary ---
Author Name Unknown Organization [facility] Address [address] [place] [address] Care Team Providers Care Resident Engineer Name Role Phone Clinic, No Primary Unavailable [...] 06/04/2019, 005 Medical Devices Implanted Type Area Group Billing Coordinator Device Identifier Shelf Expiration Date Model / Serial / Lot Cath Apd Flexima 8fr 25cm - [id number] Implanted:Qty: 1 on 04/17/2023 by Rohan Quintero MD at [facility] [id number] 10/14/2023 [id number] / [id number] / [id number] Advance Directives For more information, please contact: [phone] Latest Code Status on File Code Status [...] How was code status determined? Physician Determ [facility] Care Teams Resident Engineer Relationship Specialty Start Date End Date Clinic, No Primary PCP - [facility] Care Clinic 04/15/23 Rohan Saldaña MD [address] [place] [address] PCP - General 04/17/23
--- OUTSIDE RECORDS SUMMARY | 2023-10-02 16:57 | XMS_ITS | Encounter Summary ---
Author Name Unknown Organization [facility] Address [address] [place] [address] Care Team Providers Care Sea Foam Kiss Maker Name Role Phone Clinic, No Primary Unavailable Unavailable Rohan Saldaña MD Primary Care Provider [phone]- [phone] Reason for Visit * Reason Comments Post op check Encounter Details Date Type Department Care Team (Late st Contact Info) Description 05/15/2023 1:30 PM CDT Office Visit [facility] [address] [place] [address] [address] [place], [place] [id number] August Tarango MD [address] [place] [address] [address] [place], [place] [id number] Spontaneous pneumothorax (Primary Dx) Social History Tobacco [...] care providers as planned. Any questions call [phone]. Our fax number is [phone] documented in this encounter Progress Notes * [...] pneumothorax documented in this encounter Care Teams Sea Foam Kiss Maker Relationship Specialty Start Date End Date Clinic, No Primary PCP - Primary Care Clinic 04/15/23 Rohan Saldaña MD [address] [place] [address] PCP - General 04/17/23 documented as of this encounter
--- OUTSIDE RECORDS SUMMARY | 2023-10-02 16:57 | XMS_ITS | Referral Summary ---
Author Name Unknown Organization [facility] Address [address] [place] [id number] Care Team Providers Care Cardroom Attendant Name Role Phone Clinic, No Primary Unavailable [...] on file Medical Devices Implanted Type Area Nuclear Spectroscopist Device Identifier Shelf Expiration Date Model / Serial / Lot Cath Apd Flexima 8fr 25cm - [id number] Implanted:Qty: 1 on 04/17/2023 by Rohan Quintero MD at [facility] [employer] [facility] [id number] 10/14/2023 [id number] / [id number] / [id number] Advance Directives For more information, please contact: [phone] Latest Code Status on File Code Status [...] Comments How was code status determined? Physician [facility] Care Teams Cardroom Attendant Relationship Specialty Start Date End Date Clinic, No Primary PCP - Primary Care Clinic 04/15/23 Rohan Saldaña MD [address] [place] [address] PCP - General 04/17/23
--- OUTSIDE RECORDS SUMMARY | 2023-10-02 16:57 | XMS_ITS | Encounter Summary ---
Author Name Unknown Organization [facility] Address [address] [place] [id number] Care Team Providers Care Home Planning Consultant Salesperson Name Role Phone Clinic, No Primary Unavailable Unavailable Rohan Saldaña MD Primary Care Provider [phone] Encounter Details Date Type Department Care Team [...] on filedocumented in this encounter Care Teams Home Planning Consultant Salesperson Relationship Specialty Start Date End Date Clinic, No Primary PCP - Primary Care Clinic 04/15/23 Rohan Saldaña MD [address] [place] [address] PCP - General 04/17/23 documented as of this encounter
--- OUTSIDE RECORDS SUMMARY | 2023-10-02 16:58 | XMS_ITS | Encounter Summary ---
Author Name Unknown Organization [facility] Address [address] [place] [address] Care Team Providers Care Test Inspection Engineer Name Role Phone Clinic, No Primary Unavailable Unavailable Rohan Saldaña MD Primary Care Provider [phone] Reason for Visit * Reason Comments Pneumothorax * Inpatient Admission (Routine) Specialty Diagnoses / Procedures Referred By Asia t Referred To Contact Diagnoses Spontaneous pneumothorax Referral ID Status Reason Start Date Expiration Date Visits Re quested Visits Authorized [id number] 1 1 Encounter Details Date Type Department Care Team (Late st Contact Info) Description 04/20/2023 7:00 AM CDT - 04/20/2023 9:15 AM CDT Surgery [facility] Operating Room [address] [place] [address] [place] [address] [place] [address] [address] [place] [address] VIDEO ASSISTED THORACOSCOPY, Left Talc pleurodysis Surgery Details Date/Time Status Location OR Service Patient Class Case Class Case Type Trauma Case? 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 cdsspwjbyct-ajyuiskko-nplaoxty 100-62.5-25 mcg Inhl DsDv Inhale 1 Inhalation once daily. Outpatient Follow-Up: PCP Total time for discharge: 33 minutes documented in this encounter Discharge Instructions * Attachments The following attachments cannot be sent through Care Everywhere. * COPD (Chronic Obstructive Pulmonary Disease) (AfterCare(R) Instructions(ER/ED)) ([place]) * Spontaneous Pneumothorax (AfterCare(R) Instructions(ER/ED)) ([place]) * Chemical Pleurodesis (Discharge Care) ([place]) documented in this encounter Medications at Time [...] 04/28/2023 1:19 PM CDT Carl Shanice 1970 [id number] P: Discharge A: Discharged via wheelchair to TCU at 1330 escorted by nurse I: Discharge information and arrangements included: review of written discharge instructions, review of purpose and side effects of new medication, prescriptions e-Prescribed, portable oxygen sent with the patient/family., belongings list completed. R:Patient, mother, sister expressed understanding of information.. * Renée Sky APRN, BIOFUELS ENGINEERING MANAGER - 04/27/2023 11:06 AM CDT CV SURGERY [...] Sky APRN CNP/Dr. Tarango CT Surgery Pager [phone] 04/27/2023 11:06 AM * Han Jacobo MD - 04/27/2023 9:50 AM CDT HOSPITALIST DIVISION PROGRESS NOTE 04/27/2023 Principal Problem: Spontaneous pneumothorax HPI: 53 year old man with end stage COPD on 3L home O2, has been referred to [place] for lung transplant eval but declined due [...] liters of home oxygen Transplant offered at [place], patient declined due to cost and care [...] as activity has increased. Plan for Disposition: [facility] will take pt when ready for [...] nurse Total time for visit minutes Han Jacboo MD, [facility] * Carl Booker DO - 04/27/2023 6:35 [...] to assess response. Dr. Carl Booker D.O. [facility] - Answering Service Agent * April Freitas RN - 04/26/2023 1:35 PM CDT Med-Surg Care Progression Note Type: Shift to shift summary Length of stay: 11 days Code Status: Full Code Primary Problem: Spontaneous pneumothorax, persistent air leak 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 Referred to [place] for lung transplant eval but declined due [...] 3L home O2, has been referred to [place] for lung transplant eval but declined due [...] liters of home oxygen Transplant offered at [place], patient declined due to cost and care [...] as activity has increased. Plan for Disposition: [facility] will take pt for 2 pm [...] time for visit minutes Han Jacobo MD, [facility] * August Tarango MD - 04/26/2023 10:24 [...] - 04/25/2023 10:44 PM CDT Progress Note: [id number] Spontaneous pneumothorax. POD #5 TALC pleurodesis Hx: End-Stage COPD (BL O2 3-4L). Referred to [place] for lung transplant eval but declined d/t [...] - 04/25/2023 6:42 PM CDT Progress Note: [id number] Spontaneous pneumothorax. POD #5 TALC pleurodesis Hx: End-Stage COPD (BL O2 3-4L). Referred to [place] for lung transplant eval but declined d/t [...] Diagnosis Date COPD (chronic obstructive pulmonary disease) ([facility]) Deep vein thrombosis (DVT) ([facility]) Dietitian Visit Summary: 04/25/23: Pt [...] NUTRITION-RELATED H&P Pre-Admission Nutrition History: Usual diet CREDIT COUNSELOR Other Pertinent Factors: NA Anthropometric/Physical: Height: 6' [...] this time April Duron DTR Available via uTrail me * Han Jacobo MD - 04/25/2023 12:48 PM CDT HOSPITALIST DIVISION PROGRESS NOTE 04/25/2023 Principal Problem: Spontaneous pneumothorax HPI: 53 year old man with end stage COPD on 3L home O2, has been referred to [place] for lung transplant eval but declined due [...] liters of home oxygen Transplant offered at [place], patient declined due to cost and care [...] time for visit minutes Han Jacobo MD, [facility] * Alex Santana PA-C - 04/25/2023 8:56 [...] post tube removal. Alex Santana PA-C/Dr. Tarango [facility] Sur[facility] Pager [phone] * Clay Farmer MD - 04/24/2023 12:23 PM CDT Pulmonary Progress Note Summary: Carl Judd is a 53 year old man with end stage COPD on 3L home O2, has been referred to [place] for lung transplant eval but declined due [...] a better candidate. No s/o AECOPD, continue CREDIT COUNSELOR inhalers Acute on chronic hypoxic respiratory failure [...] and Critical Care Medicine [facility] Office: [phone] * AndreajhonnyjuancarlosAlex PA-C - 04/24/2023 9:04 AM [...] cares, [employer] Alex Santana PA-C/Dr. Tarango [facility] Pager [phone] * Ghazal Tan MD - 04/24/2023 8:16 AM CDT Images from the original note were not included. HOSPITALIST DIVISION PROGRESS NOTE Brief Summary: This is a 53 year old man with end stage COPD on 3L home O2, has been referred to [place] for lung transplant eval but declined due [...] PLANNING: Per thoracic surgery Ghazal Tan MD [facility] Medicine Available through [employer] 8:00am-6:00 pm CHIEF COMPLAINT: Left-sided PTX failed [...] 3L home O2, has been referred to [place] for lung transplant eval but declined due [...] PLANNING: Per thoracic surgery Ghazal Tan MD [facility] Medicine Available through [employer] 8:00am-6:00 pm CHIEF [...] a few days. Alex Santana PA-C/Dr. God[facility] Sur[facility] Pager [phone] * China Quiroz RN - 04/22/2023 9:08 AM CDT Med-Surg Care Progression Note Type: Shift to shift summary Length of stay: 7 days Code Status: Full Code Primary Problem: Spontaneous pneumothorax, persistent air leak Hx: End-stage COPD (BL O2 3L). Referred to [place] for lung transplant eval but declined due to finances and ongoing occasional smoking. Post-surgical leukocytosis. 04/20: TALC pleurodesis Summary: Goal: pain management and mobility progression. Pt denies passing gas last night and startof shift. shift production supervisor gave miralax, noted hypoactive bowel sounds, [...] 3L home O2, has been referred to [place] for lung transplant eval but declined due [...] PLANNING: Per thoracic surgery Ghazal Tan MD [facility] Medicine Available through [employer] 8:00am-6:00 pm CHIEF COMPLAINT: Left-sided PTX failed [...] resolution of airleak. Alex Santana PA-C/Dr. [facility] Sur[facility] Pager [phone] * Elizabeth Nance RN - 04/22/2023 6:29 AM CDT Med-Surg Care Progression Note Type: Shift to shift summary Length of stay: 7 days Code Status: Full Code Primary Problem: Spontaneous pneumothorax, persistent air leak Hx: End-stage COPD (BL O2 3L). Referred to [place] for lung transplant eval but declined due [...] findings. Stool softeners ordered. Viraj Kumar MD [facility] * Verito Pereira RN - 04/21/2023 9:00 PM CDT Med-Surg Care Progression Note Type: Shift to shift summary Length of stay: 6 days Code Status: Full Code Primary Problem: Tension pneumothorax, persistent air leak, s/p VATS talc pleurodesis 04/20. End-stage COPD, 3L home O2 at baseline. Referred to [place] for lung transplant eval but declined due [...] 04/21/2023 4:00 PM CDT Carl Suzanne 1970 [id number] P. Transfer A. Transferred at 1530 to A4 unit. Transported via bed with O2 and IV Pump escorted by nurse. I. Notified no family member of transfer. Patient information and safety items addressed included how to call for help, name of assigned primary care physician, Patient Information booklet, Handwashing, Respiratory Hygiene, How to Call a Response Team, initial physician orders, hourly rounding procedures, belongings checklist, unit and plan of care. R. Patient expressed understanding of information. . * Jalil Veliz - 04/21/2023 12:35 PM CDT Summary: Sales Demonstrator visit while rounding this unit to provide [...] family per need or request by paging [phone] or through [employer]. Rev. Chaplain Zambrano M.Div. 04/21/2023 1235 pm * Anshul Yarbrough MD - 04/21/2023 10:36 AM CDT NITS ICU Progress Note Summary: Carl Judd is a 53 year old man with end stage COPD on 3L home O2, has been referred to [place] for lung transplant eval but declined due [...] and Critical Care Medicine [facility] Pager: [phone] * August Tarango MD - 04/21/2023 7:43 [...] Radiology will sign off Erinn Kwok APRN-[facility] Pager [phone] M-F 7am-5pm * Devin Poole RN - 04/20/2023 11:15 AM CDT P. Admission A. Condition on Admit: alert. Patient/Family Concerns: Patient expressed concern about pain relief . I. Initial Interventions included: notified MD of patient arrival, administered medication for mid chest pain, Called 6NW for patient belongings . Orientation to Unit: Patient oriented to how to call for help, name of assigned primary care physician, belongings checklist, unit and plan of care. [...] SCD Restraints: none Lines: peripheral ESTRELLITA Fofana [facility] ESTRELLITA Fofana [facility] This [...] every 2 hours Nutrition: Adequate Nutrition Interventions: Stocklayer consult - protein/albumin assessment Mobility: Slightly Limited [...] Progression Note Type: Shift to shift summary [id number] Length of stay: 4 days Code Status: [...] Fluids: Tolerating regular diet and thin liquids. Stocklayer consulted and boost supplements added. NPO at [...] days ago. The patient was seen at [place] and then transferred to [facility]. A CT scan and chest x-ray [...] Diagnosis Date COPD (chronic obstructive pulmonary disease) ([facility]) Deep vein thrombosis (DVT) ([facility]) PAST SURGICAL HISTORY Past Surgical [...] still continuous air leak but less vigorous, -[id number] suction Skin: Warm, well-perfused, normal cap refill, [...] pleurodesis Masood Saenz MD * Lauren Shah, FASHION BUYER, BIOFUELS ENGINEERING MANAGER - 04/19/2023 11:55 AM CDT INTERVENTIONAL RADIOLOGY PROGRESS NOTE Procedure date: 04/17/2023 Procedure: Placement of an 8 Northern Irish left apical chest tube Subjective Romulo is [...] questions or concerns. Lauren Shah APRN, [facility] Pager Number: Radiology Office: Patient Active [...] SCD Restraints: none Lines: peripheral ESTRELLITA Fofana [facility] This document [...] Light on Outside Patient Room Fall Risk home economics expert Door (NMR) Hi-Lo Bed (Versa-Care) Keep Assistive [...] respiratory status, CXR in am, determine possible VATS/pleurodesis/fci plan, CTX for 7 days for LLL consolidation/pneumonia, IV abx I- Invasive Devices: PIV, left CT D- Discharge: Home pending medical stability * Lauren Shah APRN, BIOFUELS ENGINEERING MANAGER - 04/18/2023 2:35 PM CDT INTERVENTIONAL RADIOLOGY PROGRESS NOTE Procedure date: 04/17/2023 Procedure: Placement of an 8 Northern Irish left apical chest tube Subjective Romulo is [...] questions or concerns. Lauren Shah APRN, [facility] Pager Number: Radiology Office: Patient [...] still continuous air leak but less vigorous, -[id number] suction Skin: Warm, well-perfused, normal cap refill, [...] was pursuingpossible lung transplant and declined at [place] (d/t financial reasons). I am inclined to ask CV Surgery to see him about definitive VATS/pleurodesis, but have sent a message to some [facility] transplant colleagues about whether they would approach the case any different if he may be a transplant candidatein the future. In meantime, continue chest tube -24vgY96 suction, repeat CXR in AM. Continue CTX for 7d for LLL consolidation/pneumonia. Continue scheduled DuoNebs + Breo inhaler (sub for home Trelegy). We will continue to follow, please call with questions. Dhaval Yao MD [facility] Pager [phone] Total patient care time 30 minutes. * [...] SCD Restraints: none Lines: peripheral ESTRELLITA Fofana [facility] This document was created using voice [...] 04/17/2023 3:30 PM CDT Carl Shanice 1970 [id number] P. Transfer A. Transferred at 1530 to [...] increased SOB, PT/OT following-on hold today per electrophysiology technician recommendation prior to CT placement U- [...] chart reviewed. PT communicated message to this pattern chart writer that electrophysiology technician recommending hold therapies today, anticipate chest [...] Discussed care plan with patient ESTRELLITA Fofana [facility] This document [...] CXR showed increased L PTX, suctioned increasedto -[id number] per Dr. Ross. At the moment the [...] Intake/Output Summary (Last 24 hours) at 04/17/2023 0999 Last data filed at 04/17/2023 0738 Gross [...] nurse. Dhaval Yao MD [facility] Pager [phone] Total patient care time 30 minutes. * [...] to fully evacuate space. Alondra Ross MD [phone] () [phone] (office) * Pauline Rangel DO - 04/17/2023 [...] ordered for chest pain. Pauline Rangel DO [facility] Update: EKG was NSR with sinus [...] Progression Note Type: Shift to shift summary: [id number] Length of stay: 2 days Code Status: [...] severe underlying COPD (transplant evaluation completed at [place] ) - hope to avoid surgery as [...] stage COPD. Declined for lung transplant at [place] due to financial concerns. 3. Hypoxia - [...] GI prophylaxis: not indicated, has a diet Medicare Nurse Type Used: None ACCESS: PIV RESTRAINTS: not [...] Progression Note Type: Shift to shift summary [id number] Length of stay: 1 days Code Status: [...] Progression Note Type: Shift to shift summary [id number] Length of stay: 0 days Code Status: [...] AND PHYSICAL Patient Name: Carl Judd Address: [place] [address] Age: 53 y.o. Sex: male Admission Date/Time: [...] chest tube placed. He was transferred to [facility] for further management. Per ED notes, he [...] prednisone as can prohibit healing - defer CREDIT COUNSELOR inhaler to pulm Mild leukocytosis, likely stress de-margination - Continue to monitor CBC, no abx for now as no clear signs or sx of infection CODE STATUS: Full Code - Discussed with patient on admission DVT prophylaxis: not indicated, chest tube in place GI prophylaxis: not indicated, has a diet Medicare Nurse Type Used: None ACCESS: PIV RESTRAINTS: not [...] this encounter Procedure Notes * Lauren Shah, FASHION BUYER, BIOFUELS ENGINEERING MANAGER - 04/17/2023 10:23 AM CDT Procedure Consent [...] proceed. Consent signed. Lauren Shah APRN, CNP [facility] Pager Number: Radiology Office: documented [...] Diagnosis Date COPD (chronic obstructive pulmonary disease) ([facility]) Deep vein thrombosis (DVT) ([facility]) Dietitian Visit Summary: 04/19/23: Open [...] NUTRITION-RELATED H&P Pre-Admission Nutrition History: Usual diet CREDIT COUNSELOR Other Pertinent Factors: NA Anthropometric/Physical: Height: 6' [...] time Stacy Gonzalez RD LD Available via uTrail me * Martin Khan, PT - 04/17/2023 9:30 AM CDT Acute Physical Therapy Evaluation Patient Name: Carl Judd Today's Date: 04/17/2023 Admission Date: 04/15/2023 Assessment PT Assessment/Recommendations Assessment: Pt is a 53 yo male admitted for tension pneumothorax. CREDIT COUNSELOR pt reports IND with all mobility without use of AD. Currenlty requiring CGA for transfers and short bout of ambulation. Pt mildlyunsteady throughout, but no overt LOB. Sats in low-mid 90s throughout session on 3.5L (3L baseline). Towards the end of session, electrophysiology technician came to assess pt and reported [...] mildly unsteady gait with no overt LOB [facility] AM-PAC 6-Clicks Turning over in bed (including [...] Patient will perform supine to sit with: [place] Sit to/from Stand Patient will perform sit to/from stand transfer with: [place] Assistive Device: No assistive device Gait Level [...] CONSULTATION NOTE Patient Name: Carl Judd Address: .[place] [address] Age:53 y.o. Sex: male Admission Date/Time: 04/15/2023 6:37 AM Requesting Physician: [facility] Attending Physician: Emilee Griggs MD I was asked to see this patient at the request of Dr. Griggs for evaluation of left sided pneumothorax. HPI: 53 yo gentleman with history of severe COPD (followed by pulmonary in [place]). Developed left chest pain yesterday. Then went to [facility] - left ptx noted. Concern for tension -needle aspiration completed, then left chest tube placed. At baseline: severe COPD. Followed by a electrophysiology technician in [place] - he couldn't remember the nameat the time of my visit. Has been referred to [place] for consideration of lung transplant. Denied perfinancials [...] his permission, I reviewed pulmonary records from [place] transplant evaluation. He was determined to be ineligible on 03/16/23 - no further data available. He had considered starting pulmonary rehab through [place] in January, but hasn't started this due [...] 5 mg 5 mg oral Q6H PRN Emliee Griggs MD 5 mg at 04/15/23 1156 [...] severe underlying COPD (transplant evaluation completed at [place] ) - hope to avoid surgery as [...] COPD. Followed by pulmonary. Was referred to [place] for consideration of lung transplant - declined due to finances. Developed dyspnea yesterday. PCP thought it might be a pulled muscle. Then went to [facility] - left ptx noted. Left [...] Selected Services Address Phone Fax Patient Preferred [facility] [address] [facility] [phone] -- Internal Comment last updated by Leidy [...] call us back .serena/reed 04/25/2023@2:31 PM Called [phone] , spoke with Erinn, confirmed they received the referral. Referral under review, they will call us back with update. m.a/cm 04/25/2023@11:42 AM Called [phone] spoke with admission. They have bed, requested referral faxed over. Referral faxed to [phone] per request.yuri/reed PAS: [id number] Oxygen: 3-4L NC , portable O2 from NW in the room Transportation: Family/friend Additional cost of transportation discussed with patient/family: N/a D/C orders, prescriptions and PAS were faxed to: [phone] ,@ 11:18 AM , phone # [phone], Updated Patient, Bedside RN, product support manager, Provider, BRIQUETTE MAKER, and Care facility of discharge arrangements. - Aggie called from tcu and wants the pt to know they are non smoke facility. Reed met with pt & family in the room and communicated to the pt. Leidy Ojeda RN counter person Pager [phone] * Kiki Estrada RT - 04/28/2023 7:33 [...] End-stage COPD (BL O2 3-4L). 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 Referred to [place] for lung transplant eval but declined due [...] Selected Services Address Phone Fax Patient Preferred [facility] [address] [facility] [id number] [phone] -- Internal Comment last updated by Leidy Ojeda RN 04/27/2023 1515 [facility] 04/27/2023 Called and updated Erinn @admission d/c pending medical stability. Will update tcu tomorrow. Ma/cm 04/26/2023 LVM for Melania drake , up dating her that CT is removed on 04/25, waiting for a call back. M.a/cm 04/26/2023 Spoke with Erinn, she stated her coworker is reviewing and will call us back .ma/cm 04/25/2023@2:31 PM Called [phone] , spoke with Erinn, confirmed they received the referral. Referral under review, they will call us back with update. m.a/cm 04/25/2023@11:42 AM Called [phone] spoke with admission. They have bed, requested referral faxed over. Referral faxed to [phone] per request.m.a/cm Potential Barriers: medical stability Care Coordination Plan & Communication with Patient/Family: pt discussed in rounding, chart reviewed. Leidy Ojeda RN counter person Pager [phone] * Tani Castañeda RN - 04/27/2023 2:53 [...] End-stage COPD (BL O2 3-4L). Referred to [place] for lung transplant eval but declined due [...] speed with heavy UE support on AD. [facility] AM-PAC 6-Clicks Turning over in bed (including [...] Patient will perform supine to sit with: [place] Sit to/from Stand Patient will perform sit to/from stand transfer with: [place] Assistive Device: No assistive device Gait Level [...] End-stage COPD (BL O2 3-4L). 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 Referred to [place] for lung transplant eval but declined due [...] manycues for diaphgramatic breathing/PLB to slow RR. [facility] AM-PAC 6-Clicks Turning over in bed (including [...] in room mobility, AE for LED (has printer small print shop), hygienes at sink when off suction INPATIENT [...] Patient Seen In: Room Family/Caregiver Present: No Medicare Nurse Used?: NA Hearing: Within Functional Limits Lines [...] Frame Short term goals target date: 04/25/23 emt intermediate goals target date: 05/02/23 Patient/Family Participation in [...] standing at the sink Outcome: Goal Ongoing Senior Living Goals Patient will complete ADLs including: hygiene/grooming, [...] Selected Services Address Phone Fax Patient Preferred [facility] [address] [address] [facility] [phone] -- Internal Comment last updated by Leidy Ojeda, RN 04/26/2023 1254 [facility] 04/26/2023 LVM for Melania milenaroseline , up dating her that CT is removed on 04/25, waiting for a call back. M.a/cm 04/26/2023 Spoke with Erinn, she stated her coworker is reviewing and will call us back .ma/reed 04/25/2023@2:31 PM Called [phone] , spoke with Erinn, confirmed they received the referral. Referral under review, they will call us back with update. m.a/cm 04/25/2023@11:42 AM Called [phone] spoke with admission. They have bed, requested referral faxed over. Referral faxed to [phone] per request.m.a/cm Potential Barriers: medical stability, Care Coordination Plan & Communication with Patient/Family: pt discussed in rounding. Chart reviewed Cm called and spoke with Melania shepard [phone] @admission. Provided requested information ; pt SS, and Address: [address] [place] [address] [address] , [facility] [address]. [facility] trace confirmed they can take pt tomorrow earliest 2 pm and latest 6 pm. -pt in agreement with d/c to [facility], setting up portable O2 via NW. Pt will call family for a ride. -cm updated the care team via secure chat. - cm called NW [phone] spoke with Lutece & arranged portable O2 to be delivered tomorrow before 2 pm. Will fax O2 order , H & P and Face sheet to Leidy Ojeda RN counter person Pager [phone] * Darren Humphries RT - 04/26/2023 11:49 [...] End-stage COPD (BL O2 3-4L). 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 Referred to [place] for lung transplant eval but declined due [...] Selected Services Address Phone Fax Patient Preferred [facility] Pending - No Request Sent N/A [id number] [facility] [phone] -- Internal Comment last updated by Leidy Ojeda RN 04/25/2023 14310 1904/25/2023@2:31 PM Called [phone] , spoke with Erinn, confirmed they received the referral. Referral under review, they will call us back with update. trace 04/25/2023@11:42 AM Called [phone] spoke with admission. They have bed, requested referral faxed over. Referral faxed to [phone] per request.m.a/cm [facility] Pending - No Request Sent N/A [id number] [facility] [phone] -- Internal Comment last updated by Leidy Ojeda RN 04/25/2023 14301 1704/25/2023@2:33 PM LVM alicia Bravo @[phone] requesting for a call back with update.cy 04/25/2023@11:38 AM Spoke with Shelly @admission [phone]. They have one shared room , will review. Referral faxed to [phone] . Serena/reed [facility] Pending - No [facility] Sent N[facility]A [id number] [facility] [facility] [phone] -- Internal Comment last updated by Leidy Ojeda RN 04/25/2023 1204 [facility] 04/25/2023@11:39 AM Spoke with liaison Hernan and granted epic access. 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 Referred to [place] for lung transplant eval but declined due [...] Patient Seen In: Room Family/Caregiver Present: No Medicare Nurse Used?: NA Hearing: Within Functional Limits Lines and Tubes: Chest Tube (L Now on water seal) Subjective (Comment): Pt in chair and agreeable to tx PRECAUTIONS Therapy Vitals SpO2: 90s Oxygen Delivery Device: Nasal Cannula Amount of Supplementary O2: 4L SAFETY INTERVENTIONS Safety Interventions Fall Risk?: Yes Safety Interventions/Patient Disposition: Standard interventions, [place] sitter on PATIENT IS FUNCTIONING FOLLOWS: Therapeutic [...] Frame Short term goals target date: 04/25/23 emt intermediate goals target date: 05/02/23 Patient/Family Participation in [...] standing at the sink Outcome: Goal Ongoing Senior Living Goals Patient will complete ADLs including: hygiene/grooming, dressing, toileting, independently Outcome: Goal Ongoing * Tracey Mckeon RN - 04/24/2023 2:44 PM CDT Med-Surg Care Progression Note Type: Shift to shift summary Length of stay: 9 days Code Status: Full Code Primary Problem: Spontaneous pneumothorax, persistent air leak 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 Referred to [place] for lung transplant eval but declined due to finances and ongoing occasional smoking. Post-surgical leukocytosis. 04/20: TALC pleurodesis POD x4 Summary: Severe pain from chest tube site ongoing issue. CT found kinked this AM and afterwards pain was better controlled. CT placed on suction trial today and possible plan to clamp CT at PR. F- Feeding & Fluids: Tolerating regular diet, [...] very slow, shuffled gait. Mildly unsteady throughout [facility] AM-PAC 6-Clicks Turning over in bed (including [...] Risk?: Yes Safety Interventions/Patient Disposition: Standard interventions, [place] sitter on, In chair, All needs within reach GOALS-The interventions during this session were provided to address the goals set forth on evaluation and are ongoing unless otherwise indicated. Time Frame Goals target date: 05/01/23 Supine to Sit Patient will perform supine to sit with: [place] Sit to/from Stand Patient will perform sit to/from stand transfer with: [place] Assistive Device: No assistive device Gait Level [...] this pm. 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 Referred to [place] for lung transplant eval but declined due [...] End-stage COPD (BL O2 3L). Referred to [place] for lung transplant eval but declined due [...] No change to CT air leak, still gqndfstihmgd-ci-bwwqkmwnti at 1. H- Head OUT of Bed [...] End-stage COPD (BL O2 3L). Referred to [place] for lung transplant eval but declined due [...] No change to CT air leak, still ajfeptgjrtnj-bi-aeohdpxtor at 1. H- Head OUT of Bed [...] Light on Outside Patient Room Fall Risk home economics expert Door (NMR) Frequent Re-Orientation and Repetitive Reminders [...] and medicate for pain. Plan transfer to [facility] shortly. DESI ALONSO RN * Kelsie [...] be discontinued as soon as possible. This pattern chart writer decided to keep elena in due [...] To ICU with RN and NA full compliance monitor. * Kelsea Stephen SW - 04/20/2023 [...] d/c needs pending medical stability. Kelsea Samson, BRAILLE CODER Social Work Ext [phone] * April Pierre - 04/20/2023 9:54 AM CDT Pt in PACU. He is quite drowsy, skin cool on extremities, trunk warm. He follows commands. Decreased breath sounds with cracking on inspiration. Unable to ausciltate heart sounds. Hr st on compliance monitor. No ectopy. Cuff and art line [...] Risk Armband On (Green Bracelet) Hi-Lo Bed ([facility]) Mobility Safety Interventions: Standard Interventions in Place [...] flowsheet for additional information if needed. * Friolan Kohli RN - 04/18/2023 5:24 PM CDT [...] LOB. Gait in room 2/2 chest tube [facility] AM-PAC 6-Clicks Turning over in bed (including [...] Patient will perform supine to sit with: [place] Sit to/from Stand Patient will perform sit to/from stand transfer with: [place] Assistive Device: No assistive device Gait Level [...] reach feet for LE dressing. Was issued printer small print shop and educated on use. Pt does not appear safe for home alone at this time. Will follow for functionalgoals. Thank you. Recommendations For Next Session: transfers, in room mobility, AE for LED (has printer small print shop), hygienes at sink when off suction INPATIENT [...] Patient Seen In: Room Family/Caregiver Present: No Medicare Nurse Used?: NA Hearing: Within Functional Limits Lines [...] is independent with: ADLs, Shopping, Meal Preparation, Film Casting Operator, Medication Management, Driving (prepares easy meals) [...] ADL/IADL STATUS Current ADL Status Equipment Provided: Hospital Internship Eating Assistance: Independent Grooming Assistance: Set-up ADL Comments: Completed grooming with set up assist. Unable to reach feet for LE dressing. Current IADL Status Meal Preparation: needs assist Medication Management: per baseline Film Casting Operator: per baseline FUNCTIONAL MOBILITY Bed Mobility [...] Frame Short term goals target date: 04/25/23 emt intermediate goals target date: 05/02/23 Patient/Family Participation in [...] standing at the sink Outcome: Goal Ongoing Senior Living Goals Patient will complete ADLs including: hygiene/grooming, [...] banded. No output. Patient breathing coarse, on CREDIT COUNSELOR 3L O2. Problem: Communication Goal: Demonstrates/exhibits ability [...] shift Pt denied pain following interventions on mold shifter. * Tyler Crowell RN - 04/17/2023 [...] to the emergency department via EMS from [place] ED for evaluation of a pneumothorax. Per EMS, the patient was initially brought to [place] ED with 2 days of shortness of breath, and his initialoxygen saturation was 50%. Chest tube placement Admitted from: Home Prior: Living Arrangements: Alone Support Systems: Family members- mother and siblings, Yelitza Sheikh [phone] Primary decision maker: Patient DME prior to [...] Dr. Mena for primary care at the [place]. When the pt is ready for d/c, he says his sister or friend will provide transportation. SW phone call with his sister Yelitza Sheikh who says she would like to be updated [phone]. She says the pt really needs a different dwelling that has no stairs. [place]. Barriers to discharge: medical stability Care management will continue to follow. JORDAN Borjas, [facility] Pager: [phone] 04/16/2023 2:13 PM * vEa Redding RT - 04/16/2023 12:56 PM CDT [...] grams talc pleurodesis. Surgeon: Anshul Tarango MD Outpatient Dietitian: Renée Sky NP Dictation: Under general anesthesia [...] approximated with interrupted 3- 0 nylon sutures. assistant community manager: Renée Sky NP assisted with opening, closure, [...] to the emergency department via EMS from [place] ED for evaluation of a pneumothorax. Per EMS, the patient was initially brought to [place] ED with 2 days of shortness of breath, and his initialoxygen saturation was 50%. Xray at [place] showed a left sided tension pneumothorax. A chest tube was placed, but the hospital felt that they could not adequately care for the patient there, so hewas transferred to [facility]. The patient received 1 L of [...] Shortness of breath Ventricular Rate: 98 QRS [place]: 73 Intervals: NC 142, QRSD 86, QTc 438 Interpretation: Sinus [...] on continual cardiac monitoring and pulse oximetry. (2053) - Portable chest X-ray was performed. (9956) - I reviewed the patient's vital signs, [...] is accurate. Hailee Angulo MD 04/15/23 04/15/2023 [facility] EMERGENCY DEPARTMENT * Tia Tam RN - 04/15/2023 6:38 AM CDT Patient arrives via EMS from [place] with c/o pneumothorax with SOB. Hx of COPD, on 3 L at baseline. Patient had reported 2 days of SOB. At home oxygen saturations were 50%. Upon arrival to [place] ED patient was noted to have a spontaneous L sided pneumothorax. Needle decompression done and chest tube placed prior to transfer. Patient was placed on high flow oxygen en route. Patient arrives A/O, reports pain to L side chest 02/25. * Moo Borrego - 04/15/2023 6:23 AM CDT Transfer to [facility] Transferring facility: [facility] taking transfer request: Karlo Lam [place] / specialist notified: none Special needs / [...] - 04/15/2023 4:51 AM CDT Transfer to [facility] Information Transferring facility: [facility] taking transfer request: Karlo Lam [place] / specialist notified: None Special needs / [...] admission medications were reviewed with patient and [place] ED records. The [facility] medication list has been updated and reflected in the chart below. Please use the [facility] medication section for ordering home doses during admission. Medication related issues: 1. All medications added to CREDIT COUNSELOR med list. 2. No recent fill records, patient states he pays espinal for inhalers, was able to verify correct medications that align with [place] ED list. PRIOR TO ADMISSION MEDICATION LIST: Prior to Admission Medications Prescriptions Last Dose Informant Patient Reported? Taking? albuterol HFA (PROVENTIL;VENTOLIN HFA) 90 mcg/actuation Inhl inhaler PRN Patient Yes Yes Sig: Inhale 2 puffs every 4 (four) hours as needed. aspirin 81 mg oral chewable tablet PRN Patient Yes Yes Sig: Chew 1 tablet (81 mg) once daily. ogrzstkhfci-uxhfsxddn-prusdxwv 100-62.5-25 mcg Inhl DsDv 04/14/2023 Patient Yes Yes Sig: Inhale 1 Inhalation once daily. Facility-Administered Medications: None This patient obtains medications from [facility]. Thank you for the opportunity to participate in the care of this patient. Jeffrey Dueñas, System Safety Manager Phone #:[phone] Time spent reconciling meds:10 min Location: face to face encounter Addendum: I have reviewed and agree with the assessment made by the pharmacy director. Sushila Gallagher, Pharm D, BCCCP, BCPS documented [...] opacities. REPORT SIGNED BY SCARLETT MALDONADO M.D. Reéne Sky FASHION BUYER, BIOFUELS ENGINEERING MANAGER XRAY ORDERABLE * EKG (04/27/2023 6:37 AM CDT) Only the most recent of3 resultswithin the time period is included. EKG I MELISSA Comment: ?[facility] ? Test Date: ?2023-04-27 Pat Name: ? CARL JUDD ?Department: ?? A4 ?Room: ? A481 Gender: ? M ?Awning Hanger Helper: ?? [id number] : ?1970 ? Requested By: CARL BOOKER MD Order Number: [id number] ?Reading MD: ?? Eugenio Live MD ? Measurements Intervals ?[place] ? Rate: ? 106 ?P: ?73 NC: ? 144 ?QRS: ?59 QRSD: ? 90 ? T: ?66 QT: ? 337 ? QTc: ?449 ? Interpretive Statements SINUS TACHYCARDIA ABNORMAL RHYTHM ECG Compared to ECG 04/17/2023 05:52:38 Sinus rhythm no longer present Electronically Signed On 04-30-2023 10:52:05 CDT by Eugenio Live MD 04/27/2023 6:37 AM CDT Carl Booker DO EKG ORDERABLE [facility] [address] [address] * XR CHEST AP PORT (04/27/2023 6:36 [...] mg/dL ATELLICA ANALYZER 04/26/2023 1:13 PM CDT [facility] Est GFR (CKD-EPI) >60.00 >60.00 mL/min/1. 73m2 ATELLICA ANALYZER 04/26/2023 1:13 PM CDT [facility] Comment:Calculation based on the Chronic Kidney Disease Epidemiology Collaboration (CKD-EPI) equation refit without adjustment for race. Blood 04/26/2023 10:5 6 AM CDT 04/26/2023 11:48 AM CDT Han Jacobo MD CHEMISTRY ORDERABLE Performing Organization Address City/[facility]/ZIP Co de Phone Number [facility] [address] [place], [place] [id number] * Potassium, Serum (04/26/2023 10:56 AM CDT) Only the most recent of4 resultswithin the time period is included. Potassium 4.6 3.4 - 5.1 mmol/L ATELLICA ANALYZER 04/26/2023 1:03 PM CDT [facility] Blood 04/26/2023 10:5 6 AM CDT 04/26/2023 11:48 AM CDT Han Jacobo MD CHEMISTRY ORDERABLE Performing Organization Address City/[facility]/ZIP Co de Phone Number [facility] [address] [facility] [facility] [place], [place] [id number] * Magnesium (04/26/2023 10:56 AM CDT) Only the most recent of8 resultswithin the time period is included. Magnesium 1.8 1.6 - 2.6 mg/dL ATELLICA ANALYZER 04/26/2023 12:14 PM [facility] Blood 04/26/2023 10:5 6 AM CDT 04/26/2023 11:48 AM CDT Jesika Osborne RN CHEMISTRY ORDERABLE [facility] [address] [facility] [place] [address] * (ABNORMAL) CBC / DIFF (04/25/2023 4:39 AM CDT) Only the most recent of6 resultswithin the time period is included. [facility] WBC 8.9 4.3 - 10.8 K/uL 04/25/2023 5:01 AM [facility] RBC 3.65(L) 4.60 - 6.20 M/uL 04/25/2023 5:01 AM [facility] Hemoglobin 10.4(L) 14.0 - 18.0 gm/dL 04/25/2023 5:01 AM [facility] Hematocrit 32.6(L) 40.0 - 54.0 % 04/25/2023 5:01 AM [facility] MCV 89 80 - 100 fL 04/25/2023 5:01 AM [facility] MCH 29 27 - 33 pg 04/25/2023 5:01 AM [facility] MCHC 32(L) 33 - 36 gm/dL 04/25/2023 5:01 AM [facility] RDW 12.3 11.5 - 14.5 % 04/25/2023 5:01 AM [facility] Platelet Count 363 150 - 400 K/UL 04/25/2023 5:01 AM [facility] MPV 9.5 6.5 - 12 fL 04/25/2023 5:01 AM [facility] PMN % 60.7 % 04/25/2023 5:01 AM [facility] IG % 1.5(H) <=1.0 % 04/25/2023 5:01 AM [facility] Comment:Immature granulocyte s often indicate left shift when outside of normal limits. Lymphocyte % 13.5 % 04/25/2023 5:01 AM [facility] Monocyte % 13.1 % 04/25/2023 5:01 AM [facility] Eosinophil % 10.4 % 04/25/2023 5:01 AM [facility] Basophil % 0.8 % 04/25/2023 5:01 AM [facility] PMN Absolute 5.39 1.80 - 7.80 K/uL 04/25/2023 5:01 AM [facility] IG ABSOLUTE 0.13(H) 0.00 - 0.00 K/uL 04/25/2023 5:01 AM [facility] Lymphocyte Absolute 1.20 1.00 - 4.00 K/uL 04/25/2023 5:01 AM [facility] Monocyte Absolute 1.16(H) 0.00 - 1.00 K/uL 04/25/2023 5:01 AM [facility] Eosinophil Absolute 0.92(H) 0.00 - 0.45 K/uL 04/25/2023 5:01 AM [facility] Basophil Absolute 0.07 0.00 - 0.20 K/uL 04/25/2023 5:01 AM [facility] Nucl RBC % 0.0 0.0 - 0.0 /100 WBC 04/25/2023 5:01 AM [facility] Nucl RBC Absolute 0.00 0.00 - 0.00 K/uL 04/25/2023 5:01 AM [facility] Blood 04/25/2023 4:39 AM CDT 04/25/2023 4:55 AM [facility] Ghazal Tan MD HEMATOLOGY ORDERABLE [facility] [address] [place] [address] * (ABNORMAL) Basic Metabolic Profile Magnesium (04/25/2023 4:39 AM CDT) Only the most recent of4 resultswithin the time period is included. Sodium 138 136 - 145 mmol/L ATELLICA ANALYZER 04/25/2023 5:23 AM T [facility] Potassium 4.1 3.4 - 5.1 mmol/L ATELLICA ANALYZER 04/25/2023 5:23 AM [facility] Chloride 98 98 - 108 mmol/L ATELLICA ANALYZER 04/25/2023 5:23 AM T [facility] Carbon Dioxide 36(H) 20 - 31 mmol/L ATELLICA ANALYZER 04/25/2023 5:23 AM [facility] BUN (Urea Nitro) 13 9 - 23 mg/dL ATELLICA ANALYZER 04/25/2023 5:23 AM [facility] Creatinine 0.72(L) 0.73 - 1.18 mg/dL ATELLICA ANALYZER 04/25/2023 5:23 AM [facility] Est GFR (CKD-EPI) >60.00 >60.00 mL/min/1. 73m2 ATELLICA ANALYZER 04/25/2023 5:23 AM [facility] Comment:Calculation based on the Chronic Kidney Disease Epidemiology Collaboration (CKD-EPI) equation refit without adjustment for race. Glucose 98 74 - 106 mg/dL ATELLICA ANALYZER 04/25/2023 5:23 AM [facility] Calcium, Serum 9.0 8.7 - 10.4 mg/dL ATELLICA ANALYZER 04/25/2023 5:23 AM [facility] Anion Gap 4.0 0.0 - 15.0 mmol/L ATELLICA ANALYZER 04/25/2023 5:23 AM [facility] Magnesium 1.6 1.6 - 2.6 mg/dL ATELLICA ANALYZER 04/25/2023 5:23 AM [facility] Blood 04/25/2023 4:39 AM CDT 04/25/2023 4:55 AM CDT Ghazal Tan MD CHEMISTRY ORDERABLE [facility] [address] [address] * Blood Aerobic (1 Bottle) Culture (04/23/2023 11:52 AM CDT) Blood Culture (<5 Years Old/Short Draw) No growth 5 days. 04/28/2023 3:05 PM CDT [facility] Blood STRUCTURE OF RIGHT HAND / Unknown 04/23/2023 11:52 AM CDT 04/23/2023 11:52 AM CDT Ghazal Tan MD MICROBIOLOGY ORDERAB LE Performing Organization Address [facility] de Phone Number [facility] [address] [place] [address] * Extra Tube-EDTA (Lab Use Only) (04/22/2023 4:44 AM CDT) Only the most recent of2 resultswithin the time period is included. Blood 04/22/2023 4:44 AM CDT 04/22/2023 5:38 AM CDT Stefany Agosto MD HEMATOLOGY ORDERABLE Performing Organization Address [facility] de Phone Number [facility] [address] [address] * CT Abdomen & Pelvis w/o Oral [...] - 18.0 gm/dL 04/21/2023 5:43 AM CDT [facility] Blood 04/21/2023 5:13 AM CDT 04/21/2023 5:36 AM CDT Sravani HARO HEMATOLOGY ORDERABL E [facility] [address] [place] [address] * ABORh Confirm (Lab Use Only) (04/20/2023 11:55 AM CDT) Group and Rh B Positive 04/20/2023 12:51 PM CDT [facility] Blood ARTERIAL LINE SUBMITTED SPECIMEN / Unknown 04/20/2023 11:55 AM CDT 04/20/2023 12:06 PM CDT Sravani Chaudhary [facility] BLOOD BANK ORDERABL E [facility] [address] [facility] [place] [address] [facility] [address] [address] * Protime/INR (04/20/2023 11:55 AM CDT) Only the most recent of3 resultswithin the time period is included. Pathologist [facility] INR 1.0 0.9 - 1.2 04/20/2023 12:32 PM CDT [facility] Blood ARTERIAL LINE SUBMITTED SPECIMEN / Unknown 04/20/2023 11:55 AM CDT 04/20/2023 12:08 PM CDT Sravani [facility] COAGULATION ORDERAB LE [facility] [address] [facility] [place] [address] * Culture-Anaerobe (04/20/2023 8:43 AM CDT) Pathologist [facility] CULT-ANAEROBE No anaerobic growth in 5 days. SCOTTY 04/25/2023 11:41 AM CDT [facility] Site-Microbiology PLEURAL FLUID SPECIMEN / Unknown 04/20/2023 8:43 AM CDT Comment:Pre-op diagnosis: Air leak [J93.82] August Tarango MD MICROBIOLOGY ORDERAB LE Performing Organization Address City/[facility]/ZIP Co de Phone Number [facility] [address] [address] * Culture-Aerobic (04/20/2023 8:43 AM CDT) Pathologist [facility] Aerobic Culture No growth 48 hours. SCTOTY 04/22/2023 11:00 AM CDT [facility] Gram Stain Result No bacteria seen. 04/22/2023 11:00 AM CDT [facility] Gram Stain Result Many WBC's / LPF 04/22/2023 11:00 AM CDT [facility] Site-Microbiology PLEURAL FLUID SPECIMEN / Unknown 04/20/2023 8:43 AM CDT Comment:Pre-op diagnosis: Air leak [J93.82] August Tarango MD MICROBIOLOGY ORDERAB LE Performing Organization Address City/[facility]/ZIP Co de Phone Number [facility] [address] [place] [address] * Surgery Olympus Video/Pics (04/20/2023 7:05 AM CDT) [facility] 04/20/2023 7:05 AM CDT August Tarango MD PROCEDURE ORDERABLE Performing Organization Address City/[facility]/ZIP Co de Phone Number [facility] [place] [address] [place] [address] * Type & Screen (04/18/2023 8:14 AM CDT) Group and Rh B Positive 04/20/2023 11:24 AM CDT [facility] Antibody Screen Negative 04/20/2023 11:24 AM CDT [facility] Blood 04/18/2023 8:14 AM CDT 04/20/2023 10:49 AM CDT Sravani HARO BLOOD BANK ORDERABL E Performing Organization Address [facility] Co de Phone Number [facility] [address] [place] [address] [facility] [address] [place] [address] * (ABNORMAL) Gases Venous Peripheral (04/18/2023 8:14 AM CDT) pH Venous 7.37 7.30 - 7.40 04/18/2023 8:37 AM CDT [facility] O2 Sat Venous 79.4 60.0 - 80.0 % 04/18/2023 8:37 AM CDT [facility] pO2 Venous 43 35 - 45 mm Hg 04/18/2023 8:37 AM CDT [facility] Base Excess Venous 9.7(H) -3.0 - 2.0 mmol/L 04/18/2023 8:37 AM CDT [facility] PCO2 VENOUS 67(H) 36 - 51 mm Hg 04/18/2023 8:37 AM CDT [facility] HCO3 Venous 38(H) 22 - 29 mmol/L 04/18/2023 8:37 AM CDT [facility] Blood 04/18/2023 8:14 AM CDT 04/18/2023 8:27 AM CDT Sravani HARO CHEMISTRY ORDERABLE Performing Organization Address City/[facility]/ZIP Co de Phone Number [facility] [address] [place] [address] * IR SPECIAL PROCEDURES (04/17/2023 3:02 PM CDT) Anatomical Region Laterality Modality X-Ray Angiograph y 04/17/2023 5:27 PM CDT Impressions 04/17/2023 5:30 PM CDT IMPRESSION: Placement of 8 [place] left apical chest tube as described above. Narrative 04/17/2023 5:30 PM CDT Chest tube placement. 8 [place] left apical chest tube placement PROCEDURES: Left [...] advanced into the pleural space. A 10 [place] Irish tube was advanced over the wire and curled within the pleural space. ??The tube were secured to the skin and dressed. ??The patient tolerated the procedure well and there were no immediate complications. ??The patient was transferred to the floor in stable condition. Procedure Note Rohan Quintero MD - 04/17/2023 Chest tube placement. 8 [place] left apical chest tube placement PROCEDURES: Left [...] was advancedinto the pleural space. A 10 [place] Irish tube was advanced over the wire andcurled within the pleural space. The tube were secured to the skin anddressed. The patient tolerated the procedure well and there were noimmediate complications. The patient was transferred to the floor instable condition. IMPRESSION IMPRESSION: Placement of 8 [place] left apical chest tube as describedabove. Dhaval [...] ng/mL ATELLICA ANALYZER 04/17/2023 2:51 PM CDT [facility] Blood 04/17/2023 6:46 AM CDT 04/17/2023 7:06 AM CDT [facility] LABORATORY - 04/17/2023 2:51 PM CDT PROCALCITONIN [...] Sravani HARO CHEMISTRY ORDERABLE Performing Organization Address [facility] Co de Phone Number [facility] [address] [facility] [address] [place], [place] [id number] * High-Sensitivity Troponin I (TNIH) (04/17/2023 6:46 AM CDT) [facility] HIGH-SENSITIVI TY TROPONIN I 10 <=53 ng/L ATELLICA ANALYZER 04/17/2023 7:37 AM CDT [facility] Blood 04/17/2023 6:46 AM CDT 04/17/2023 7:06 AM CDT Pauline Rangel DO CHEMISTRY ORDERABLE Performing Organization Address [facility] de Phone Number [facility] [address] [facility] [place] [address] * (ABNORMAL) Basic Metabolic Profile (04/16/2023 6:56 AM CDT) Only the most recent of2 resultswithin the time period is included. [facility] Sodium 139 136 - 145 mmol/L ATELLICA ANALYZER 04/16/2023 7:46 AM CDT [facility] Potassium 4.3 3.4 - 5.1 mmol/L ATELLICA ANALYZER 04/16/2023 7:46 AM CDT [facility] Chloride 100 98 - 108 mmol/L ATELLICA ANALYZER 04/16/2023 7:46 AM CDT [facility] Carbon Dioxide 36(H) 20 - 31 mmol/L ATELLICA ANALYZER 04/16/2023 7:46 AM CDT [facility] BUN (Urea Nitro) 15 9 - 23 mg/dL ATELLICA ANALYZER 04/16/2023 7:46 AM CDT [facility] Creatinine 0.90 0.60 - 1.10 mg/dL ATELLICA ANALYZER 04/16/2023 7:46 AM CDT [facility] Est GFR (CKD-EPI) >60.00 >60.00 mL/min/1. 73m2 ATELLICA ANALYZER 04/16/2023 7:46 AM CDT [facility] Comment:Calculation based on the Chronic Kidney Disease Epidemiology Collaboration (CKD-EPI) equation refit without adjustment for race. Glucose 112(H) 74 - 106 mg/dL ATELLICA ANALYZER 04/16/2023 7:46 AM CDT [facility] Calcium, Serum 9.6 8.7 - 10.4 mg/dL ATELLICA ANALYZER 04/16/2023 7:46 AM T [facility] Anion Gap 3.0 0.0 - 15.0 mmol/L ATELLICA ANALYZER 04/16/2023 7:46 AM T [facility] Blood Line - Mixed Venous / Unknown 04/16/2023 6:56 AM CDT 04/16/2023 7:14 AM CDT Emilee Griggs MD CHEMISTRY ORDERA BLE Performing Organization Address City/State/[facility] Co de Phone Number [facility] [address] [place] [address] * COVID-19 (PUI) (04/15/2023 7:14 AM CDT) SARS-CoV-2 by PCR Negative for SARS-CoV-2 RNA by PCR Negative for SARS-CoV-2 RNA by PCR CEPHEID INFINITY ANALYZER 04/15/2023 7:47 AM CDT [facility] Nasopharynx 04/15/2023 7:14 AM CDT 04/15/2023 7:14 AM CDT Hailee Angulo MD MICROBIOLOGY ORDERAB LE Performing Organization Address [facility] de Phone Number [facility] [address] [place] [address] * Extra Tube PST (Lab Use Only) (04/15/2023 6:55 AM CDT) Blood 04/15/2023 6:55 AM CDT 04/15/2023 7:00 AM CDT Hailee Angulo MD CHEMISTRY ORDERABLE Performing Organization Address [facility] Phone Number [facility] [address] [place] [address] * Extra Tube-SST (Lab Use Only) (04/15/2023 6:55 AM CDT) Blood 04/15/2023 6:55 AM CDT 04/15/2023 7:03 AM CDT Hailee Angulo MD CHEMISTRY ORDERABLE Performing Organization Address [facility] de Phone Number [facility] [address] [place] [address] * Extra Tube-Blood Bank (Lab Use Only) (04/15/2023 6:55 AM CDT) Blood 04/15/2023 6:55 AM CDT 04/15/2023 6:58 AM CDT Hailee Angulo MD BLOOD BANK ORDERABLE Performing Organization Address [facility] de Phone Number [facility] [address] [place] [address] * (ABNORMAL) LFTs (04/15/2023 6:55 AM CDT) ALT <9 7 - 40 U/L ATELLICA ANALYZER 04/15/2023 7:32 AM CDT [facility] Alkaline Phosphatase 85 46 - 116 U/L ATELLICA ANALYZER 04/15/2023 7:32 AM CDT [facility] AST (SGOT) 8(L) 13 - 40 U/L ATELLICA ANALYZER 04/15/2023 7:32 AM CDT [facility] Protein Total 6.6 5.7 - 8.2 g/dL ATELLICA ANALYZER 04/15/2023 7:32 AM CDT [facility] Albumin 3.7 3.4 - 5.0 g/dL ATELLICA ANALYZER 04/15/2023 7:32 AM CDT [facility] BILIRUBIN-DIRECT 0.11 <0.40 mg/dL ATELLICA ANALYZER 04/15/2023 7:32 AM CDT [facility] Bilirubin-Total 0.3 0.3 - 1.2 mg/dL ATELLICA ANALYZER 04/15/2023 7:32 AM CDT [facility] Blood 04/15/2023 6:55 AM CDT 04/15/2023 7:00 AM CDT Hailee Angulo MD CHEMISTRY ORDERABLE [facility] [address] [place] [address] [address] * POCT Chloride (04/15/2023 6:48 AM CDT) POCT CHLORIDE 100 99 - 111 mmol/L 04/15/2023 6:51 AM CDT [facility] 04/15/2023 6:48 AM CDT 04/15/2023 6:51 AM CDT Hailee Angulo MD LAB POINT OF CARE TE ST RESULTS [facility] [address] [place] [place] [address] * POCT CREATININE (04/15/2023 6:48 AM CDT) POCT Creatinine 0.8 0.7 - 1.3 mg/dL 04/15/2023 6:51 AM CDT [facility] 04/15/2023 6:48 AM CDT 04/15/2023 6:51 AM CDT Hailee Angulo MD LAB POINT OF CARE TE ST RESULTS Performing Organization Address [facility] Co de Phone Number [facility] [address] [place] [address] * POCT Lac (04/15/2023 6:48 AM CDT) POCT LACTIC ACID 0.8 0.7 - 2.1 mmol/L 04/15/2023 6:51 AM CDT [facility] 04/15/2023 6:48 AM CDT 04/15/2023 6:51 AM CDT Hailee Angulo MD LAB POINT OF CARE TE ST RESULTS Performing Organization Address [facility] Co de Phone Number [facility] [address] [place] [address] * POCT Ca, Ionized (04/15/2023 6:48 AM CDT) POCT CA IONIZED 1.23 1.13 - 1.32 mmol/L 04/15/2023 6:51 AM CDT [facility] 04/15/2023 6:48 AM CDT 04/15/2023 6:51 AM CDT Hailee Angulo MD LAB POINT OF CARE TE ST RESULTS Performing Organization Address [facility] de Phone Number [facility] [address] [place] [address] * (ABNORMAL) POCT VBG/Na/K/Glu (04/15/2023 6:48 AM CDT) POCT pH Venous 7.25(L) 7.30 - 7.40 04/15/2023 6:51 AM T [facility] POCT pCO2 Venous 86(HH) 36 - 51 mm Hg 04/15/2023 6:51 AM T [facility] POCT pO2 Venous 23(L) 35 - 45 mm Hg 04/15/2023 6:51 AM T [facility] POCT HCO3 VENOUS 38(H) 22 - 29 mmol/L 04/15/2023 6:51 AM T [facility] POCT BASE EXCESS 6.6(H) -3.0 - 2.0 mmol/L 04/15/2023 6:51 AM T [facility] POCT CSO2 27.8(L) 92.0 - 98.0 %SAT 04/15/2023 6:51 AM T [facility] POCT cTCO2 40.2 mmol/L 04/15/2023 6:51 AM T [facility] POCT SODIUM 141 133 - 144 mmol/L 04/15/2023 6:51 AM T [facility] POCT POTASSIUM 4.7 3.5 - 5.0 mmol/L 04/15/2023 6:51 AM T [facility] POCT Glucose 114(H) 60 - 100 mg/dL 04/15/2023 6:51 AM [facility] 04/15/2023 6:48 AM CDT 04/15/2023 6:51 AM CDT Hailee Angulo MD LAB POINT OF CARE TE ST RESULTS Performing Organization Address [facility] de Phone Number [facility] [address] [place] [address] documented in this encounter Visit Diagnoses Diagnosis [...] documented as of this encounter Care Teams Test Inspection Engineer Relationship Specialty Start Date End Date Clinic, No Primary PCP - Primary Care Clinic 04/15/23 Rohan Saldaña MD [address] [place] [address] PCP - General 04/17/23 documented as of this encounter
--- OUTSIDE RECORDS SUMMARY | 2023-10-02 16:58 | XMS_ITS | Encounter Summary ---
Author Name Unknown Organization [facility] Address [address] [place] [id number] Care Team Providers Care Prize Jacker Name Role Phone Md Ariadna Primary Care [...] documented as of this encounter Care Teams Prize Jacker Relationship Specialty Start Date End Date Md Ariadna PCP - General 04/15/23 04/16/23 Clinic, No Primary PCP - Primary Care Clinic 04/15/23 documented as of this encounter
[2023-10-02 17:05] LABS: Chloride* 96 mmol/L (96-114); Sodium* 139 mmol/L (135-149)
[2023-10-02 17:08] LABS: Anion Gap 7 mEq/L (7-15); Blood Urea Nitrogen* 24 mg/dL (7-30); Carbon Dioxide* 36 mmol/L (20-32); Creatinine* 0.8 mg/dL (0.5-1.5); Est. Creatinine Clearance* 117.21; Estimated Glomerular Filt Rate 106 ml/min
[2023-10-02 17:09] LABS: Glucose* 138 mg/dL (60-115)
[2023-10-02 17:21] LABS: Troponin I* < 0.01 ng/mL (0.01-0.04)
== END 2023-10-02 18:45 | disposition home or self-care (01) ==
PROVIDERS: Emergency Provider Family Medicine; PCP Family Medicine
DX: U07.1 COVID-19 (principal); J44.1 Chronic obstructive pulmonary disease with (acute) exacerbation
CPT/HCPCS: 36415; 71275; 80048; 83605; 84484; 85025; 93005; 94761; 96374; 99284; 99285; J2060; Q9967

== ENCOUNTER 2023-11-29 14:44 | Outpatient (CLI) | payer MEDICARE, OTHER, SELFPAY ==
--- NOTE | 2023-11-29 15:00 | XR_ITS ---
Patient: MUMTAZ JUDD Facility:?[facility] Patient ID:?[id number] Site Patient ID:?[id number]. Site :?1970 Study:?DEXA-Bone Density DEXA - SPINE/HIPS-11/29/2023 3:22:06 PM Ordering Physician:HAZEL Final Report: DXA BONE MINERAL DENSITY STUDY Reason for exam: Collapsed vertebra. Current height (in): 72. Weight (lb): 165. Menopause age: Not applicable. Ethnicity: White. 1. Have you had a previous hip or vertebral fracture? No. 2. Have you had any fractures during your adult life which did not result from significant trauma (e.g., auto accident)? Yes. 3. Did either of your parents have a hip fracture? No. 4. Do you smoke? Yes. 5. Have you ever taken Glucocorticoids? No. 6. Do you have rheumatoid arthritis? No. 7. Do you have secondary osteoporosis? No. 8. Do you drink 3 or more alcoholic drinks per day? No. 9. Are you being treated for osteoporosis? No. 10. Have you ever taken any of the following medications: Actonel, Evista, Fosamax, Miacalcin, Reclast, Boniva, Forteo, HRT (i.e. estrogen/hormone therapy), Protelos, Prolia, Vitamin D, Calcium, other ? please specify. ANSWER: Yes, Vitamin D and Calcium. 11. Do you have any of the following medical conditions: Anorexia or bulimia, asthma or emphysema, end stage renal disease, hyperparathyroidism, any seizure disorders, cancer, inflammatory bowel diseases, hysterectomy, other ? please specify. ANSWER: Yes, Asthma or Emphysema. 12. What was your maximum height (inches)? 72. 13. Do you perform weight bearing exercise regularly? Yes. 14. Do you regularly consume dairy products? Yes. 15. Do you drink caffeinated beverages? Yes. TECHNIQUE: Bone mineral density study was performed using the [employer]. FINDINGS: The results of the study expressed as bone mineral density (BMD) are as follows: Lumbar spine L1 to L3: BMD: 0.720 g/cm2. T-score: -3.2. Z-score: -2.7. Neck Left: BMD: 0.492 g/cm2. T-score: -3.2 . Z-score: -2.4. Right: BMD: 0.487 g/cm2. T-score: -3.3 . Z-score: -2.4. Total Left: BMD: 0.575 g/cm2. T-score: -3.0 . Z-score: -2.7. Right: BMD: 0.655 g/cm2. T-score: -2.5 . Z-score: -2.1. IMPRESSION: Osteoporosis. *Comparison exams done prior to 02/2020 were performed on different unit, [employer]. René Peña M.D. Diagnostic Radiologist [email or web address] DSM/sp D& Transcribed: 8:03 p.m. SP/Dictated by: René Peña MD @ 11/29/2023 4:33:00 PM Signed by:Nayely Peña MD @11/30/2023 5:40:37 AM (Electronic Signature)
== END 2023-11-29 14:45 | disposition home or self-care (01) ==
LOC: RAD 14:45
PROVIDERS: PCP Family Medicine; Visit Provider Family Medicine
DX: M48.50XA Collapsed vertebra, not elsewhere classified, site unspecified, initial encounter for fracture (principal); M81.0 Age-related osteoporosis without current pathological fracture
CPT/HCPCS: 77080

== ENCOUNTER 2025-01-02 12:56 | Outpatient (CLI) | payer MEDICARE, OTHER, SELFPAY ==
--- NOTE | 2025-01-02 13:00 | CRLHL7_ITS ---
For Patients: As a result of the Century Cures Act, medical imaging exams and procedure reports are released immediately into your electronic medical record. You may view this report before your referring provider. If you have questions, please contact your health care provider. DXA BONE MINERAL DENSITY STUDY Current height (in): 72. Weight (lb): 160. Menopause age: N/A. Ethnicity: White. 1. Have you had a previous hip or vertebral fracture? No. 2. Have you had any fractures during your adult life which did not result from significant trauma (e.g., auto accident)? No. 3. Did either of your parents have a hip fracture? No. 4. Do you smoke? Yes. 5. Have you ever taken Glucocorticoids? No. 6. Do you have rheumatoid arthritis? No. 7. Do you have secondary osteoporosis? No. 8. Do you drink 3 or more alcoholic drinks per day? No. 9. Are you being treated for osteoporosis? No. 10. Have you ever taken any of the following medications: Actonel, Evista, Fosamax, Miacalcin, Reclast, Boniva, Forteo, HRT (i.e. estrogen/hormone therapy), Protelos, Prolia, Vitamin D, Calcium, other ??? please specify. ANSWER: Yes, Vitamin D and calcium. 11. Do you have any of the following medical conditions: Anorexia or bulimia, asthma or emphysema, end stage renal disease, hyperparathyroidism, any seizure disorders, cancer, inflammatory bowel diseases, hysterectomy, other ??? please specify. ANSWER: Yes, Asthma or Emphysema. 12. What was your maximum height (inches)? 72. 13. Do you perform weight bearing exercise regularly? Yes. 14. Do you regularly consume dairy products? Yes. 15. Do you drink caffeinated beverages? Yes. TECHNIQUE: Bone mineral density study was performed using the [employer]. FINDINGS: The results of the study expressed as bone mineral density (BMD) are as follows: Lumbar spine L1 to L3: BMD: 0.756 g/cm2. T-score: -2.9. Z-score: -2.4. Neck Left: BMD: 0.478 g/cm2. T-score: -3.3. Z-score: -2.5. Right: BMD: 0.472 g/cm2. T-score: -3.4. Z-score: -2.5. Total Left: BMD: 0.596 g/cm2. T-score: -2.9. Z-score: -2.5. Right: BMD: 0.702 g/cm2. T-score: -2.2. Z-score: -1.8. IMPRESSION: Osteoporosis. COMPARISON: Compared with scan of 11/29/2023, the bone mineral density has increased by 5.1 percent at the spine and increased by 5.5 percent at the hip. Lilliam Peralta M.D. Diagnostic Radiologist [email or web address] SANDY/john DW/Dictated by: Lilliam Peralta MD @ 01/03/2025 7:35:00 AM (Electronically Signed)
== END 2025-01-02 12:57 | disposition home or self-care (01) ==
LOC: RAD 12:58
PROVIDERS: PCP Family Medicine; Visit Provider Family Medicine
DX: M81.0 Age-related osteoporosis without current pathological fracture (principal)
CPT/HCPCS: 77080

== ENCOUNTER 2025-04-13 10:47 | Inpatient (IN) | payer MEDICARE, OTHER, SELFPAY ==
[2025-04-13] VITALS (13 sets, daily range): BP systolic 115–146; BP diastolic 71–93; PULSE 83–110; RESP 12–19; TEMP 36.6–36.9; O2SAT 86–100; BMI 22.4; BMI 21.4
--- OUTSIDE RECORDS SUMMARY | 2025-04-13 10:49 | XMS_ITS | Clinical Summary ---
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 Gender Identity Not on file Sexual Orientation Not on file Plan of Treatment Health Maintenance Due Date Last Done Comments ADVANCE CARE PLANNING 1970 ANNUAL REVIEW OF HM ORDERS 1970 CT COLONOGRAPHY 1970 DIABETES SCREENING 1970 FIT 1970 FLEX SIG 1970 sDNA (Cologuard) 1970 COLONOSCOPY 01/05/1980 COLORECTAL CANCER SCREENING 01/05/1980 HIV SCREENING 1985 HEPATITIS C SCREENING 01/05/1988 MEDICARE ANNUAL WELLNESS VISIT 01/05/1988 HEPATITIS B VACCINE (1 of 3 - 19+ 3-dose series) 1989 LIPID 2010 ZOSTER VACCINE (1 of 2) 01/05/2020 PNEUMOCOCCAL VACCINE 50+ YEARS (2 of 2 - PCV) 10/11/2023 10/11/2022 COVID-19 VACCINE (3 - 2023-2 5 season) 2024 12/26/2020, 12/05/2020 PHQ-2 (once per calendar year) 2024 INFLUENZA VACCINE (#1) 2025 06/26/2023 DTAP/TDAP/TD VACCINE (2 - Td or Tdap) 06/04/2029 06/04/2019, 07/05/2005 HPV VACCINE (No Doses Required) Completed MENINGITIS VACCINE Aged Out No longer eligible based on patient's age to complete this topic Insurance [employer] MEDICARE [employer] MEDICARE Care Teams Bucket Operator Relationship Specialty Start Date End Date Rohan Saldaña MD PCP - General Family Medicine 01/20/23
--- OUTSIDE RECORDS SUMMARY | 2025-04-13 10:49 | XMS_ITS | Clinical Summary ---
Author Organization [facility] Address [address] [place] [address] Care Team Providers Care Program Manager Rn Name Role Phone Clinic, No Primary Unavailable Unavailable Rohan Saldaña MD Primary Care Provider Allergies No known active allergies Medications fluticasone-ume clidin-vilanter 100-62.5-25 mcg Inhl DsDv Inhale 1 Inhalation once daily. Active albuterol HFA (PROVENTIL;VENT SELENA HFA) 90 mcg/actuation Inhl inhaler Inhale 2 puffs every 4 (four) hours as needed. Active acetaminophen (TYLENOL) 500 mg oral tablet Take 1-2 tablets (500-1,000 mg) by mouth every 6 (six) hours as needed for fever or pain. 0 3 Active albuterol-iprat ropium, conc: 3-0.5mg/3mL, (DUO-NEB) Inhl nebulizer solution Nebulize 3 mL every 6 (six) hours as needed. 90 mL 3 Active Active Problems Problem Noted Date Diagnosed Date Spontaneous pneumothorax 04/15/2023 Social History Tobacco Use Types Packs/Day Years Used Date Smoking Tobacco: Former Cigarettes Smokeless Tobacco: Never Tobacco Cessation:Counseling Given: No Comments:Stopping off/of for the last 6 months Alcohol Use Standard Drinks/Week Comments Not Currently 0 (1 standard drink = 0.6 oz pur e alcohol) Sex and Gender Information Value Date Recorded Sex Assigned at Not on file Legal Sex Male 4:48 AM CDT Gender Identity Not on file Sexual Orientation Not on file Last Filed Vital Signs Vital Sign Reading Time Taken Comments Blood Pressure 128/70 05/15/2023 12:55 PM CDT Pulse 82 05/15/2023 12:55 PM CDT Temperature 36.7 C (98 F) 04/28/2023 1:07 PM CDT Respiratory Rate 18 [...] 1971 Zoster Vaccine (1 of 2) 01/05/2020 Pneumococcal 50+ Years (2 of 2 - PCV) 10/11/2023 10/11/2022 Yearly Review of HCD 04/14/2024 04/15/2023 COVID-19 Vaccine (3 - 2023-2 5 season) 2024 12/26/2020, 12/05/2020 Influenza Vaccine (#1) 2025 Adult Tetanus Booster 06/04/2029 06/04/2019 , 07/05/2005 RSV Vaccines (1 - 1-dose 75+ series) 2045 Meningococcal B Vaccine Aged Out No l onger eligible based on patient's age to complete this topic Medical Devices Implanted Type Area Clinical Documentation Specialist Device Identifier Shelf Expiration Date Model / Serial / Lot Cath Apd Flexima 8fr 25cm - [id number] Implanted:Qty: 1 on 04/17/2023 by Rohan Quintero MD at [facility] [employer] [id number] 10/14/2023 [id number] / [id number] / [id number] Insurance MEDICARE PART A & B Advance Directives For more information, please contact: [phone] * Full Code (Latest Code Status on File) Date Activated Date Inactivated Comments 04/28/2023 10:19 AM Question Answer Comments How was code status determined? Patient * Full Code Date Activated Date Inactivated Comments 04/15/2023 3:52 PM 04/28/2023 10:19 AM Question Answer Comments How was code status determined? Patient * Full Code Date Activated Date Inactivated Comments 04/15/2023 3:52 PM 04/15/2023 3:52 PM Question Answer Comments How was code status determined? Patient * Full Code Date Activated Date Inactivated Comments 04/15/2023 10:13 AM 04/15/2023 3:52 PM Question Answer Comments How was code status determined? Physician Determ critical access hospital Care Teams Program Manager Rn Relationship Specialty Start Date End Date Clinic, No Primary PCP - Primary Care Clinic 04/15/23 Rohan Saldaña MD [address] [place] [address] PCP - General 04/17/23
--- OUTSIDE RECORDS SUMMARY | 2025-04-13 10:49 | XMS_ITS | Clinical Summary ---
Author Organization [facility] Address [address] [place] [address] Care Team Providers Care Free Lance Artist Name Role Phone None Reported, Pcp Primary Care Provider Unavail able Source Comments Patient records contain information from all sites at [facility]. For routine questions regarding patient records, call [phone] during business hours, M-F 8:00 AM - 5:00 PM Central Time. Record requests for emergency care only can be directed to [phone] at any time.[facility] Allergies No known active allergies Medications fluticasone-ume clidinium-vilan terol (TRELEGY ELLIPTA) 100-62.5-25 mcg/actuation inhaler Inhale 1 Inhalation daily. Active albuterol 90 mcg/actuation inhaler Inhale 2 puffs as needed. Active alendronate (FOSAMAX) 70 mg tablet Take 70 mg by mouth once a week. Active calcium carbonate-vitam in D3 500 mg-3.125 mcg (125 unit) per tablet Take by mouth. Activ e Active Problems No known active problems Immunizations Immunization Administration Dates Next Due Td (Adult), adsorbed 07/05/2005 Social History Tobacco Use Types Packs/Day Years Used Date Smoking Tobacco: Every Day [facility] Utilities Answer Date Recorded In the past 12 months has th e electric, gas, oil, or water company threatened to shut off services in your home? No 10/29/2023 Hunger Vital Sign Answer Date Recorded Within the past 12 months, y ou worried that your food would run out before you got the money to buy more. Never true 02/11/20 24 Within the past 12 months, t he food you bought just didn't last and you didn't have money to get more. Never true 10/29/2023 PRAPARE - Transportation Answer Date Re corded In the past 12 months, has l ack of transportation kept you from medical appointments or from getting medications? No 10/19 In the past 12 months, has l ack of transportation kept you from meetings, work, or from getting things needed for daily living? No 10/29/2023 Housing Stability Answer Date Recorded What is your living situation today? I have a [facility] place to live 10/29/2023 Sex and Gender Information Value Date Recorded Sex Assigned at Male 10/29/2023 12:12 PM PUBLIC SPEAKER Legal Sex Male 9:32 PM PUBLIC SPEAKER Gender Identity Male 10/29/2023 12:12 PM PUBLIC SPEAKER Sexual Orientation Straight 10/29/2023 12 :12 PM PUBLIC SPEAKER Last Filed Vital Signs Vital Sign Reading Time Taken Comments Blood Pressure 124/82 02/21/2024 1:38 PM CDT Pulse 99 02/21/2024 1:38 PM CDT Temperature 36.3 C (97.4 F) 10/31/2023 1:19 PM PUBLIC SPEAKER Respiratory Rate - - Oxygen Saturation 96% 10/31/2023 1:19 PM PUBLIC SPEAKER 3L O2 Inhaled Oxygen Concentration - - Weight 73.1 kg (161 lb 2.5 oz) 02/21/2024 1:38 P M CDT Height 181.7 cm (5' 11.54) 02/21/2024 1:38 PM C DT Body Mass Index 22.14 02/21/2024 1:38 PM CDT Plan of Treatment Health Maintenance Due Date Last Done Comments CT Colonography 1970 Cologuard 1970 Colonoscopy 1970 Colorectal Cancer Screening 1970 FIT 1970 HIV Screening 1970 Hepatitis C Screening 1970 Tobacco Cessation counseling 1970 Hepatitis B Vaccines (1 of 3 - 19+ 3-dose series) 1989 Zoster Vaccines (1 of 2) 01/05/2020 Lipid (Cholesterol) Screening 08/05/2020 (Performed elsewhere) Pneumococcal vaccine (50+ years) (2 of 2 - PCV) 10/11/2023 10/11/2022 COVID-19 Vaccine (3 - 2023-2 5 season) 2024 12/26/2020, 12/05/2020 Depression Screening (Annual PHQ-2) 09/18/2024 Influenza Vaccine (#1) 2025 06/26/2023 Fasting Glucose for Diabetes Screening 10/31/2026 10/31/2023 DTaP,Tdap,and Td Vaccines (2 - Td or Tdap) 06/04/2029 06/04/2019, 07/05/2005 IPV Vaccines Aged Out No longer eligi ble based on patient's age to complete this topic Medical Devices Implanted Type Area Spotter Driver Device Identifier Shelf Expiration Date Model / Serial / Lot Hardware E.G. Pins/Screws/Miguel s Hardware e.g. pins/screws /rods Right: Shoulder Conversions - Default Historical Implant Device Implanted:09/01 (Quantity not on file) Hardware e.g. pins/screws /rods Description:Device Status Te xt - Hardware. In right shoulder. Procedures Procedure Name Priority Date/Time Associated Diagnosis Comments COMPREHENSIVE METABOLIC PANEL, S/P Routine 10/31/2023 10:52 AM PUBLIC SPEAKER Dyspnea Multifactorial from Last 3 Months or Most Recently Relevant to Health Maintenance Results * (ABNORMAL) Comprehensive Metabolic Panel (10/31/2023 10:52 AM PUBLIC SPEAKER) Potassium, S 5.5(H) 3.6 - 5.2 mmol/L 10/31/2023 12:12 PM PUBLIC SPEAKER DTL Sodium, S 144 135 - 145 mmol/L 10/31/2023 12:12 PM PUBLIC SPEAKER DTL Chloride, S 99 98 - 107 mmol/L 10/31/2023 12:12 PM PUBLIC SPEAKER DTL Bicarbonate, S 37(H) 22 - 29 mmol/L 10/31/2023 12:12 PM PUBLIC SPEAKER DTL Anion Gap 8 7 - 15 10/31/2023 12:12 PM PUBLIC SPEAKER DTL BUN (Blood Urea Nitrogen), S 14 8 - 24 mg/dL 10/31/2023 12:12 PM PUBLIC SPEAKER DTL Creatinine 0.84 0.74 - 1.35 mg/dL 10/31/2023 12:12 PM PUBLIC SPEAKER DTL Estimated GFR (eGFR) >90 >=60 mL/min/BS A 10/31/2023 12:12 PM PUBLIC SPEAKER DTL Comment: Estimated GFR calculated using the 2020 CKD_EPI creatinine equation. Calcium, Total, S 10.1(H) 8.6 - 10.0 mg/dL 10/31/2023 12:12 PM PUBLIC SPEAKER DTL Glucose, S 93 70 - 140 mg/dL 10/31/2023 12:12 PM PUBLIC SPEAKER DTL Protein, Total, S 6.9 6.3 - 7.9 g/dL 10/31/2023 12:12 PM PUBLIC SPEAKER DTL Albumin, S 4.7 3.5 - 5.0 g/dL 10/31/2023 12:12 PM PUBLIC SPEAKER DTL Aspartate Aminotransferase (AST), S 18 8 - 48 U/L 10/31/2023 12:12 PM PUBLIC SPEAKER DTL Alkaline Phosphatase, S 90 40 - 129 U/L 10/31/2023 12:12 PM PUBLIC SPEAKER DTL Alanine Aminotransferase (ALT), S 14 7 - 55 U/L 10/31/2023 12:12 PM PUBLIC SPEAKER DTL Bilirubin, Total, S 0.3 0.0 - 1.2 mg/dL 10/31/2023 12:12 PM PUBLIC SPEAKER DTL Blood (Blood, Venous) 10/31/2023 10:52 AM PUBLIC SPEAKER 10/31/2023 11:37 AM PUBLIC SPEAKER Bipin Malone M.D. LAB BLOOD ADD-ON Final Res ult [facility] [address] [place] [address], [facility] [address] [place] [address] from Last 3 Months or Most Recently Relevant to Health Maintenance Insurance MEDICARE MEDICA Care Teams Free Lance Artist Relationship Specialty Start Date End Date None Reported, Pcp PCP - General 07/26/24
--- NOTE | 2025-04-13 11:41 | CRLHL7_ITS ---
For Patients: As a result of the Century Cures Act, medical imaging exams and procedure reports are released immediately into your electronic medical record. You may view this report before your referring provider. If you have questions, please contact your health care provider. Indication: Shortness of breath. Technique: CT images of the chest following intravenous contrast as a pulmonary embolism protocol. Comparison: CT chest 09/01/2024. Findings: Severe paraseptal and centrilobular pulmonary emphysema. No focal consolidation, pleural effusion, or pneumothorax. No concerning pulmonary nodules. No pulmonary embolism. Heart size is normal. Small pericardial effusion has decreased in size. No mediastinal or hilar lymphadenopathy. Limited images through the upper abdomen are unremarkable. Beam hardening artifact secondary to internal fixation of the right humerus. Mild thoracic spondylosis. No aggressive osseous lesions. Impression: 1. No pulmonary embolism. No acute abnormality in the chest. 2. Severe pulmonary emphysema. 3. Small pericardial effusion has decreased in size. Please note that all CT scans at this facility use dose modulation, iterative reconstruction, and/or weight-based dosing when appropriate to reduce radiation dose to as low as reasonably achievable. Dictated by Dhaval Miles MD @ 04/13/2025 1:15:09 PM (Electronically Signed)
--- NOTE | 2025-04-13 11:46 | ED.GENADULT ---
HPI - General Adult General Chief complaint: Shortness of Breath/Dyspnea Stated complaint: difficulty breathing Time Seen by Provider: 04/13/25 11:20 History of Present Illness HPI narrative: Patient is a 55-year-old male with history of chronic COPD. He reports the last week or so he has had increasing COPD symptoms. He has had more production to his cough it has not been greener red. He feels more short of breath at home he is on 4 L of oxygen at home on a regular basis. But he feels like he is still short of breath. He has had no chest pain, he does describe a little bit of tightness in his left pack area. But reports that that comes and goes. He has had what sounds like a talc pleurodesis for a pneumothorax in the past on the left. He has had no marked fevers or rigors. He does not have stigmata of sepsis. He is afebrile, his O2 sat 94% on 4 L nasal cannula he denies abdominal pain or lower extremity swelling or edema. He still smokes an occasional cigarette. Related Data Previous Rx's ?Medication ?Instructions ?Recorded Home Oxygen #1 ea 09/07/22 albuterol sulfate 90 mcg/actuation 2 inh inhalation Q4-6H PRN 09/25/23 aerosol inhaler shortness of breath or wheezing #6.7 grams fluticasone fur. 100 mcg-umeclid 1 inh inhalation DAILY #60 ea 09/25/23 62.5 mcg-vilant 25 mcg inhalat.powder (Trelegy Ellipta) alendronate 70 mg tablet 70 mg PO QWEEK #12 tabs 12/18/24 Allergies Allergy/AdvReac Type Severity Reaction Status Date / Time No Known Drug Allergies Allergy Verified 01/08/25 14:39 Review of Systems Status of ROS: Reports: 6 or more systems reviewed and unremarkable except as noted in History and below [facility] Medical History Adhesive capsulitis of left shoulder ?M75.02 - Adhesive capsulitis of left shoulder (ICD-10) Recurrent deep vein thrombosis (DVT) ?I82.409 - Acute embolism and thrombosis of unspecified deep veins of unspecified lower extremity (ICD-10) COVID (09/28/23) ?U07.1 - COVID-19 (ICD-10) Spontaneous pneumothorax (04/15/23) ?J93.83 - Other pneumothorax (ICD-10) Tubular adenoma (08/05/19) ?D36.9 - Benign neoplasm, unspecified site (ICD-10) Surgical History History of laminectomy (~1993) ?Z98.890 - Other specified postprocedural states (ICD-10) History of open reduction and internal fixation (ORIF) procedure (07/01/11) ?Z98.890 - Other specified postprocedural states (ICD-10) History of lipoma ?Z86.018 - Personal history of other benign neoplasm (ICD-10) H/O lumbar discectomy ?Z98.890 - Other specified postprocedural states (ICD-10) Social History Narrative: He lives alone in [place]. His sister, Yelitza Sheikh, is healthcare power of employment law attorney. Code status is full. He occasionally smokes a cigarette, about once a week. He smokes marijuana about once a day. Does not drink alcohol. He is disabled What is your current living situation?: I presently have a place to live Problems where you live: no known problems Problems where you live details: NA In the past 12 months, utilities in danger of being shut off: no In past 12 months, lack of transportation kept you from medical appts, meetings, work, or getting things needed for daily living: no In the past 12 mos, have been you worried that your food would run out before you had money to buy more?: never true In the past 12 mos, the food you bought just didn't last and you didn't have money to buy more?: never true Highest level of school completed/degree received: GED or equivalent Smoking Status: Current some day smoker What tobacco products do you use: cigarettes Years smoked: 38 Smoking quit date/years: <= 15 years ago Do you use any of these nicotine containing products: None Second hand tobacco smoke exposure: No How often do you have a drink containing alcohol: never How often do you have six or more drinks on one occasion: Never AUDIT-C Alcohol total score: 0 Non-prescribed substance use: denies use Caffeine: Yes (pop) How often does anyone, including family, friends and others, physically hurt you: unable to answer How often does anyone, including family, friends and others, insult or talk down to you: unable to answer How often does anyone, including family, friends and others, threaten you with harm: unable to answer How often does anyone, including family, friends and others, scream or curse at you: unable to answer service: No Exam Narrative: Exam Narrative: Objective: Patient is a thin man, a looks like he sitting up leaning forward. He reports it is hard to get his air. His O2 sat is 92-94% but occasionally dips down to 88 89% range. He reports that is pretty unusual for him. He is alert oriented x3. His vital signs were as above. HEENT shows dry mucous membranes neck is supple chest almost no air exchange bilaterally and no rales or wheezes wheezing noted. Heart rate and rhythm regular 2/6 systolic murmur occasional ectopic beat Abdomen benign soft Extremities are no edema Neurologic nonfocal. Const: Vital Signs, click to edit/add: Vital Signs - 24 hr 04/13/25 11:12 04/13/25 11:41 04/13/25 12:01 Temperature 97.9 F Pulse Rate 88 Pulse Rate [Pulse Oximeter] 100 Respiratory Rate 18 19 Blood Pressure 135/89 Blood Pressure [Le ft Upper Arm] 132/87 Pulse Oximetry 94 93 100 Oxygen Delivery Me thod Room Air 04/13/25 12:02 04/13/25 12:15 04/13/25 12:48 Temperature Pulse Rate 83 94 85 Pulse Rate [Pulse Oximeter] Respiratory Rate 13 12 Blood Pressure Blood Pressure [Le ft Upper Arm] Pulse Oximetry 100 100 100 Oxygen Delivery Me thod 04/13/25 13:00 04/13/25 13:09 04/13/25 13:15 Temperature Pulse Rate 83 83 84 Pulse Rate [Pulse Oximeter] Respiratory Rate 17 12 Blood Pressure 128/91 H Blood Pressure [Le ft Upper Arm] Pulse Oximetry 100 100 100 Oxygen Delivery Me thod Course Vital Signs Vital signs: Initial Vital Signs Respiratory Effort Short of Breath 04/13/25 11:11 Respiratory Depth Shallow 04/13/25 11:11 Respiratory Pattern Irregular 04/13/25 11:11 Vital Signs Temperature 97.9 F 04/13/25 11:12 Pulse Rate 100 04/13/25 11:12 Respiratory Rate 18 04/13/25 11:12 Blood Pressure 132/87 04/13/25 11:12 Pulse Oximetry 94 04/13/25 11:12 Oxygen Delivery Method Room Air 04/13/25 11:12 Temperature 97.9 F 04/13/25 11:12 Pulse Rate 84 04/13/25 14:34 Respiratory Rate 12 04/13/25 13:15 Blood Pressure 146/93 H 04/13/25 14:34 Pulse Oximetry 86 L 04/13/25 14:34 Oxygen Delivery Method Nasal Cannula 04/13/25 14:34 Oxygen Flow Rate 2 04/13/25 14:34 Medications Administered Medications: Discontinued Medications Generic Name Dose Route Start Last Admin Trade Name Freq PRN Reason Stop Dose Admin Albuterol/Ipratropium 1 neb 04/13/25 13:39 04/13/25 14:19 Iprat-Albut 0.5-2.5 Mg/3 Ml Neb IH 04/13/25 13:40 1 neb ONCE ONE Administration Aspirin 324 mg 04/13/25 11:41 04/13/25 13:10 Aspirin 81 Mg Tab.Chew PO 04/13/25 11:42 324 mg ONCE ONE Administration Sodium Chloride 1,000 mls @ 6,000 mls/hr 04/13/25 11:45 04/13/25 13:12 0.9 % Sodium Chloride 1000 Ml IV 04/13/25 11:54 6,000 mls/hr .Q10M ESTEBAN Administration Doxycycline Hyclate 100 mg/ 100 mls @ 100 mls/hr 04/13/25 11:41 04/13/25 14:12 Sodium Chloride IVPB 04/13/25 11:42 Infused ONCE ONE Infusion Methylprednisolone Sodium Succinate 125 mg 04/13/25 11:41 04/13/25 13:09 Methylprednisolone Sod Succ 62.5 Mg/Ml (125) IVP 04/13/25 11:42 125 mg ONCE ONE Administration Medical Decision Making MDM Narrative Medical decision making narrative: [age] year white male with chronic COPD oxygen dependent with a history of pleurodesis for pneumothorax presents with increasing shortness of breath. I think could be appropriate to do CT with IV contrast of his chest exclude a new pneumonia or pneumothorax. Will do an EKG and troponin for ACS rule out and patient given his symptoms of worsening may actually need hospitalization for neb treatment and IV steroids for a period of time. He does report that nebs typically have not helped him will try a Combi neb for him. Will check triple swab as well as laboratory studies. Give him IV fluid, IV doxycycline. Discussed with hospitalist as necessary. Addendum 2:00 p.m.: The patient's CT scan shows no evidence of pneumothorax early as multiple blebs. He has no pneumonia or PE. He does have a VBG that shows elevated CO2 at 71 but is pH is 7.36. Discussed with RT and they felt that this is probably chronic nature for him. And would not recommend BiPAP or other more invasive ventilation treatment. ER profile is unremarkable. Patient I think needs antibiotics, steroids, and nebs, as well as observation in the hospital with oximetry I think that is appropriate. Discussed Dr. Tao who kindly accepts for the hospitalist service. Will also get a blood culture and procalcitonin. Lab Data Labs: Lab Results 04/13/25 04/13/25 Range/Units 11:42 12:06 WBC 9.40 (4.50-11.00) K/uL RBC 4.68 (4.30-5.90) m/uL Hgb 13.4 L (13.5-17.5) gm/dL Hct 42.0 (37.0-53.0) % MCV 90 (80-100) fL MCH 29 (26-34) pg MCHC 32 (32-36) gm/dL RDW Coeff of Edin 11.7 (11.5-15.5) % Plt Count 278 (140-440) K/uL Neut % (Auto) 70.5 (42.0-72.0) % Lymph % (Auto) 14.5 L (20-44) % [place] % (Auto) 8.4 (0.0-11.0) % Eos % (Auto) 5.7 (0.0-7.0) % Baso % (Auto) 0.5 (0.0-3.0) % Neut # (Auto) 6.62 (1.7-7.0) K/uL Lymph # (Auto) 1.40 (0.90-2.90) K/uL [place] # (Auto) 0.80 (0.00-0.90) K/UL Eos # (Auto) 0.54 H (0.00-0.50) K/uL Baso # (Auto) 0.05 (0.00-0.30) K/uL Abs Immat Gran (auto) 0.04 (0.00-0.30) K/uL Imm/Tot Granulo (auto) 0.4 % VBG pH 7.36 (7.32-7.43) VBG pCO2 71 H* (40-50) mmHG VBG pO2 < 30.0 (25-47) mmHG VBG HCO3 40 H (21-28) mmol/L Sodium 140 (135-149) mmol/L Potassium 4.7 (3.6-5.1) mmol/L Chloride 96 (96-114) mmol/L Carbon Dioxide 39 H (20-32) mmol/L Anion Gap 5 L (7-15) mEq/L BUN 15 (7-30) mg/dL Creatinine 0.8 (0.5-1.5) mg/dL Estimated Creat Clear 110.45 Estimated GFR 105 ml/min Glucose 100 (60-115) mg/dL Lactate 0.8 (0.5-1.9) mmol/L Calcium 9.7 (8.4-10.6) mg/dL Total Bilirubin 0.4 (0.1-1.5) mg/dL Direct Bilirubin 0.0 (0.0-0.5) mg/dL AST 26 (12-35) U/L ALT 15 (4-50) U/L Alkaline Phosphatase 60 (40-150) U/L C-Reactive Protein < 0.5 L (0.5-1.0) mg/dL Total Protein 7.2 (6.0-8.3) g/dL Albumin 4.4 (3.3-5.0) g/dL Procalcitonin 0.05 (<0.50) ng/mL SARS-CoV-2 (PCR) Negative SARS-CoV-2 (Negative) Influenza Type A (PCR) Negative PCR FLU A (Negative) Influenza Type B (PCR) Negative PCR FLU B (Negative) RSV (PCR) Negative PCR RSV (Negative) POC Troponin I 0.00 L (0.01-0.04) ng/ml Discharge Plan Discharge Clinical Impression: COPD (chronic obstructive pulmonary disease) Patient Disposition: Admitted As Observation Discharge Location: [facility] Procedures ABG Interpretation ABG Results: 04/13/25 12:06 VBG pH 7.36 VBG pCO2 71 H* VBG pO2 < 30.0 VBG HCO3 40 H
[2025-04-13 12:11] LABS: Lactate* 0.8 mmol/L (0.5-1.9)
[2025-04-13 12:13] LABS: Hematocrit* 42.0 % (37.0-53.0); Hemoglobin* 13.4 gm/dL (13.5-17.5); Immature Granulocytes Abs Auto 0.04 K/uL (0.00-0.30); Immature Granulocytes Pct Auto 0.4 %; Mean Corpuscular HGB Conc 32 gm/dL (32-36); Mean Corpuscular Hemoglobin 29 pg (26-34); Mean Corpuscular Volume 90 fL (80-100); RDW Coefficient of Variation % 11.7 % (11.5-15.5); Red Blood Count* 4.68 m/uL (4.30-5.90); White Blood Count* 9.40 K/uL (4.50-11.00)
[2025-04-13 12:15] LABS: Lymphocytes Absolute Auto 1.40 K/uL (0.90-2.90); Slide Review Reflex No
[2025-04-13 12:30] LABS: Albumin* 4.4 g/dL (3.3-5.0); Chloride* 96 mmol/L (96-114)
[2025-04-13 12:31] LABS: Potassium* 4.7 mmol/L (3.6-5.1); Sodium* 140 mmol/L (135-149)
[2025-04-13 12:33] LABS: Blood Urea Nitrogen* 15 mg/dL (7-30); Creatinine* 0.8 mg/dL (0.5-1.5); Est. Creatinine Clearance* 110.45; Estimated Glomerular Filt Rate 105 ml/min
[2025-04-13 12:34] LABS: Alanine Aminotransferase* 15 U/L (4-50); Alkaline Phosphatase* 60 U/L (40-150); Anion Gap 5 mEq/L (7-15); Aspartate Amino Transferase* 26 U/L (12-35); Bilirubin Direct* 0.0 mg/dL (0.0-0.5); Bilirubin Total* 0.4 mg/dL (0.1-1.5); Calcium* 9.7 mg/dL (8.4-10.6); Carbon Dioxide* 39 mmol/L (20-32); Glucose* 100 mg/dL (60-115); Total Protein* 7.2 g/dL (6.0-8.3)
[2025-04-13 12:50] LABS: PCR FLU A Negative PCR FLU A (Negative); PCR FLU B Negative PCR FLU B (Negative); PCR RSV Negative PCR RSV (Negative); SARS PCR* Negative SARS-CoV-2 (Negative)
[2025-04-13] MEDS: METHYLPREDNISOLONE SOD SUCC 62.5 MG/ML (125) 125 MG IVP (13:09)
[2025-04-13] MEDS: DOXYCYCLINE HYCLATE 100 MG in 0.9 % SODIUM CHLORIDE Mini-bag 100 ML IVPB (13:09)
[2025-04-13] MEDS: ASPIRIN 81 MG TAB.CHEW 324 MG PO (13:10)
[2025-04-13 13:28] LABS: Troponin, Point-of-Care* 0.00 ng/ml (0.01-0.04)
[2025-04-13 13:45] LABS: pH VBG 7.36 (7.32-7.43)
[2025-04-13 13:47] LABS: HCO3 VBG 40 mmol/L (21-28); PCO2 VBG 71 mmHG (40-50); PO2 VBG < 30.0 mmHG (25-47)
--- NOTE | 2025-04-13 13:57 | ED.NURSE ---
Started pt's doxycycline on a pump and speed/rate was slowed down to 60ml/h and pt cannot tolerate IV doxy thru IV.
[2025-04-13 14:12] LABS: Procalcitonin* 0.05 ng/mL (<0.50)
[2025-04-13] MEDS: IPRAT-ALBUT 0.5-2.5 MG/3 ML NEB 1 NEB IH ×2 (14:19→17:57)
--- NOTE | 2025-04-13 17:00 | P.IMHP_ITS ---
Assessment and Plan Assessment and plan (1) Acute on chronic respiratory failure with hypoxia and hypercapnia: Problem comment: - treat for COPD exacerbation with IV then oral steroids, bronchodilator therapy, nebulize steroids, IV ceftriaxone, oral doxycycline. - requests full resuscitation in the event of cardiopulmonary demise but does not want to be kept alive in a persistent vegetative state. - has been advised that his last treatment option is lung transplant, but patient does not have family or friend support to be able to achieve this given that he needs this high level of support for 6 months posttransplant. - has benefited from pulmonary rehabilitation as recently as 1 year ago, consider repeat referral in the future - also discuss the possibility of hospice support given the advanced nature of his underlying condition. He states he likes this idea will think about it. - consider echocardiogram to assess for right and left ventricular cardiac function Status: Inactive (2) Oxygen dependent: Problem comment: - utilizes 2-4 L of oxygen per minute via nasal cannula continuously at home. - recommend he focus on trying to keep his oxygen saturations 86-90 %. With his high pCO2 who is dangerous for him to try to keep his saturations much greater than 90 or 92%. 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 See scanned [facility] 10/31/23. - see notes above on acute on chronic respiratory failure with hypoxia hypercapnia Status: Acute (4) Former smoker: Problem comment: Continues ~1 pack per week. Status: Chronic Plan 1. Reviewed impression, plan, recommendations with patient 2. Answered his questions to his satisfaction 3. He is agreeable with above stated plans and recommendations Total Time Spent Total Time Spent: 70 minutes Hospitalist- H&P: HPI History of Present Illness Date Seen: 04/13/25 Chief complaint: difficulty breathing Narrative: Carl Prasad is a 55 year old man with known end-stage COPD presents with to 3 day history of increasing dyspnea and left-sided chest discomfort with coughing. Has chronic cough intermittently productive of clear sputum orders clear sputum with brown specks. Ordinarily able to stand for only a few minutes or ambulate for about 100 ft before he has significant dyspnea. His disabling dyspnea is such that he is no longer able to cook for himself, except for microwavable meals. Has been assessed by vice president of recruiting at the [facility], [place], [place], and told that the only option they have left to offer him is a lung transplant. Patient indicates he is not able to obtain a lung transplant because of the requirements that they have for him to have a attendant with him 24 hours a day for 6 months posttransplant. He has no such person in his life that could help him as such including his family or his family's family. Has chronic sneezing with paroxysms of 5-8 sneezes at a time. Does not have pets in the home. Had been in his usual state of health up until 2-3 days ago, this past Monday, when started having more dyspnea even at rest. Denies paroxysmal nocturnal dyspnea or orthopnea. Denies lower extremity edema. Has noted left-sided chest discomfort when coughing or breathing to deeply. No hemoptysis. Has been indoors in an air conditioned setting. Denies fevers, rigors, diaphoresis. No recent travel or trauma. His disabling dyspnea such that he can hardly move whatsoever over the last 2-3 days to even care for himself. Sitting in his recliner chair most day and night. Taking his Trelegy inhaler once daily. Utilizing his albuterol rescue inhaler more frequently over the last few days than usual, up to 5 times daily. Utilizing his oxygen at 4 liters/minute via nasal cannula continuously to satisfy his air hunger. Has had decreased appetite. Denies abdominal pain, constipation, diarrhea, dysuria, urgency, frequency, hematuria. No skin infections. Review of Systems Narrative: He completed pulmonary rehabilitation about a year ago. It helped him immensely. When starting pulmonary rehab he could only walk 500 ft at the most before his disabling dyspnea prevented him from being able to ambulate any further. By the time he finished pulmonary rehab he was walking a 1000+ feet at a time. He would like to participate in pulmonary rehab again if possible. On the other hand we also discussed how his end-stage lung disease is such that he meets eligibility criteria for hospice services. He likes the idea of possibly having others help him remain his home trying to live as independently as possible for as long as possible. When we discuss resuscitation he indicates he would like us to try to resuscitate him in the event of cardiopulmonary demise. Medical Decision Making Medical Decision Making Code Status: Full resuscitation. Has patient completed a Health Care Directive: No During This Stay, Who Would You Like To Make Decisions For You In The Event You Are Unable To Make Them For Yourself?: Designates his sister, Yelitza, as the person to make healthcare decisions on his behalf should he be unable to do so. Relevant situational information: Does not wish to be kept alive in a persistent vegetative state. [facility] Medical History COPD (chronic obstructive pulmonary disease) ?J44.9 - Chronic obstructive pulmonary disease, unspecified (ICD-10) Adhesive capsulitis of left shoulder ?M75.02 - Adhesive capsulitis of left shoulder (ICD-10) Recurrent deep vein thrombosis (DVT) ?I82.409 - Acute embolism and thrombosis of unspecified deep veins of unspecified lower extremity (ICD-10) COVID (09/28/23) ?U07.1 - COVID-19 (ICD-10) Spontaneous pneumothorax (04/15/23) ?J93.83 - Other pneumothorax (ICD-10) Tubular adenoma (08/05/19) ?D36.9 - Benign neoplasm, unspecified site (ICD-10) Surgical History History of laminectomy (~1993) ?Z98.890 - Other specified postprocedural states (ICD-10) History of open reduction and internal fixation (ORIF) procedure (07/01/11) ?Z98.890 - Other specified postprocedural states (ICD-10) History of lipoma ?Z86.018 - Personal history of other benign neoplasm (ICD-10) H/O lumbar discectomy ?Z98.890 - Other specified postprocedural states (ICD-10) Social History Narrative: He lives alone in [place]. His sister, Yelitza Sheikh, is healthcare power of family law attorney. Code status is full. He occasionally smokes a cigarette, about once a week. He smokes marijuana about once a day. Does not drink alcohol. He is disabled What is your current living situation?: I presently have a place to live Problems where you live: no known problems Problems where you live details: NA In the past 12 months, utilities in danger of being shut off: no In past 12 months, lack of transportation kept you from medical appts, meetings, work, or getting things needed for daily living: no In the past 12 mos, have been you worried that your food would run out before you had money to buy more?: never true In the past 12 mos, the food you bought just didn't last and you didn't have money to buy more?: never true Highest level of school completed/degree received: GED or equivalent Smoking Status: Current some day smoker What tobacco products do you use: cigarettes Years smoked: 38 Smoking quit date/years: <= 15 years ago Do you use any of these nicotine containing products: None Second hand tobacco smoke exposure: No How often do you have a drink containing alcohol: never How often do you have six or more drinks on one occasion: Never AUDIT-C Alcohol total score: 0 Non-prescribed substance use: denies use Caffeine: Yes (pop) How often does anyone, including family, friends and others, physically hurt you : unable to answer How often does anyone, including family, friends and others, insult or talk down to you: unable to answer How often does anyone, including family, friends and others, threaten you with harm: unable to answer How often does anyone, including family, friends and others, scream or curse at you: unable to answer service: No Meds Home Medications and Allergies Home Medications ?Medication ?Instructions ?Recorded ?Confirmed ?Type Home Oxygen #1 ea 09/07/22 01/08/25 Rx albuterol sulfate 90 mcg/actuation 2 inh inhalation Q4 -6H PRN 09/25/23 04/13/25 Rx aerosol inhaler shortness of breath or wheez ing #6.7 grams fluticasone fur. 100 mcg-umeclid 1 inh inhalation MELISSA Y #60 ea 09/25/23 04/13/25 Rx 62.5 mcg-vilant 25 mcg inhalat.powder (Trelegy Ellipta) alendronate 70 mg tablet 70 mg PO QWEEK #12 tabs 11/1204/13/25 Rx Allergies Allergy/AdvReac Type Severity Reaction Status Date / Time No Known Drug Allergies Allergy Verified 01/08/25 14:39 Exam Narrative: Exam Narrative: I examined the patient in his hospital room. He is resting in his bed on 1 L of oxygen per minute via nasal cannula continuously saturating 88-90%. Although he appears comfortable, his resting respiratory rate is 20. Utilizes accessory muscles of respiration. Friendly, articulate, cooperative. Vision and hearing are preserved. Midline nasal septum. Dentition in fair repair. Midline trachea. No JVD or hepatojugular reflux. No head neck lymphadenopathy. Neck is supple. Decreased breath sounds in both lung bases. Scattered rhonchi. Prolonged expiratory phase. Wheezing in right lung more so than left lung. No CVA tenderness. Heart tones are distant. Abdomen with active bowel sounds, soft, nontender. Extremities without edema. No focal motor neurologic deficits. Const: Vital Signs, click to edit/add: Vital Signs - 24 hr 04/13/25 11:12 04/13/25 11:41 04/13/25 12:01 Temperature 97.9 F Pulse Rate 88 Pulse Rate [Pulse Oximeter] 100 Pulse Rate [Right Pulse Oximeter] Respiratory Rate 18 19 Blood Pressure 135/89 Blood Pressure [Le ft Upper Arm] 132/87 Blood Pressure [Ri ght Arm] Pulse Oximetry 94 93 100 Oxygen Delivery Me thod Room Air Oxygen Flow Rate 04/13/25 12:02 04/13/25 12:15 04/13/25 12:48 Temperature Pulse Rate 83 94 85 Pulse Rate [Pulse Oximeter] Pulse Rate [Right Pulse Oximeter] Respiratory Rate 13 12 Blood Pressure Blood Pressure [Le ft Upper Arm] Blood Pressure [Ri ght Arm] Pulse Oximetry 100 100 100 Oxygen Delivery Me thod Oxygen Flow Rate 04/13/25 13:00 04/13/25 13:09 04/13/25 13:15 Temperature Pulse Rate 83 83 84 Pulse Rate [Pulse Oximeter] Pulse Rate [Right Pulse Oximeter] Respiratory Rate 17 12 Blood Pressure 128/91 H Blood Pressure [Le ft Upper Arm] Blood Pressure [Ri ght Arm] Pulse Oximetry 100 100 100 Oxygen Delivery Me thod Oxygen Flow Rate 04/13/25 14:34 04/13/25 14:34 Temperature Pulse Rate Pulse Rate [Pulse Oximeter] Pulse Rate [Right Pulse Oximeter] 84 Respiratory Rate Blood Pressure Blood Pressure [Le ft Upper Arm] Blood Pressure [Ri ght Arm] 146/93 H Pulse Oximetry 86 L 86 L Oxygen Delivery Me thod Nasal Cannula Nasal Cannula Oxygen Flow Rate 2 2 Hospitalist - H&P: Result Labs Labs: Short CBC 04/13/25 Range/Units 12:06 WBC 9.40 (4.50-11.00) K/uL Hgb 13.4 L (13.5-17.5) gm/dL Hct 42.0 (37.0-53.0) % Plt Count 278 (140-440) K/uL BMP 04/13/25 12:06 Sodium 140 Potassium 4.7 Chloride 96 Carbon Dioxide 39 H BUN 15 Creatinine 0.8 Glucose 100 Calcium 9.7 Liver Function 04/13/25 Range/Units 12:06 Total Bilirubin 0.4 (0.1-1.5) mg/dL Direct Bilirubin 0.0 (0.0-0.5) mg/dL AST 26 (12-35) U/L ALT 15 (4-50) U/L Alkaline Phosphatase 60 (40-150) U/L Albumin 4.4 (3.3-5.0) g/dL Imaging CT angiogram of chest: Attestation: I have reviewed the pertinent imaging results. Radiologist's impression: Findings: Severe paraseptal and centrilobular pulmonary emphysema. No focal consolidation, pleural effusion, or pneumothorax. No concerning pulmonary nodules. No pulmonary embolism. Heart size is normal. Small pericardial effusion has decreased in size. No mediastinal or hilar lymphadenopathy. Limited images through the upper abdomen are unremarkable. Beam hardening artifact secondary to internal fixation of the right humerus. Mild thoracic spondylosis. No aggressive osseous lesions. Impression: 1. No pulmonary embolism. No acute abnormality in the chest. 2. Severe pulmonary emphysema. 3. Small pericardial effusion has decreased in size.
[2025-04-13] MEDS: ACETAMINOPHEN 325 MG TABLET 650 MG PO (17:57)
--- NOTE | 2025-04-13 20:01 | RESP.RT ---
Patient has a long complex respiratory history with large blebs and COPD complications. Chest x-ray shows a very flattened diaphragm and Chest CT shows a large percentage of lung field that is compromised. Patient has stated that he has pretty much stayed on 4L NC to keep his SATs 95% or above. This probably is not what his current O2 prescription is a he is able to keep SATs at rest 86-92% on room air-1L NC. The patient is a chronic CO2 retainer, so his SATs should not be above 92%. Patient states that he has very limited activity at home as he is not able to catch his breath with activity. We will need to assess his supplemental O2 need with activity, as 4L NC may not be meeting his needs with activity, but he is feeling short of breath at home and then leaving the 4L running 24/7 and thus allowing his CO2 levels to climb while at rest.
[2025-04-13] MEDS: DOXYCYCLINE HYCLATE 100 MG PO (21:39)
[2025-04-13] MEDS: BUDESONIDE 0.5 MG/2ML NEB NEB (21:39)
[2025-04-13] MEDS: ENOXAPARIN 40 MG/0.4 ML INJ SUBCUT (21:40)
[2025-04-13] MEDS: IBUPROFEN 400 MG TABLET PO (21:40)
--- NOTE | 2025-04-13 22:40 | PC.NURSE ---
Nursing Care Hours: [id number] Pt this shift anxious but cooperative. Arrived to unit requiring 2L NC until pt able to control breathing and relax, then titrate to RA. Spo2 dropping into low 80's, 1L NC kept in place. Increase to 2L during meals and nebulizers. Pt c/o intense pain to IV site when Doxycycline restarted. Stopped infusion and hospitalist updated. Switched to PO administration. No observable signs of irritation or injury to IV site. Pt c/o posterior neck muscle pain starting shortly after arrival. Tylenol and heat not effective. Binding Cutter [employer] Cl[employer] brought in therapy massage cane. Ibuprofen given. Wheezing noted to bilat lungs, treated with scheduled nebs. Pt using urinal in bed.
[2025-04-13] MEDS: SODIUM CHLORIDE 0.9 % (FLUSH) 10 ML SYRINGE 5 ML IVF (23:50)
[2025-04-13] MEDS: CYCLOBENZAPRINE HCL 10 MG TABLET 5 MG PO (23:50)
[2025-04-14] VITALS (9 sets, daily range): BP systolic 104–142; BP diastolic 69–96; PULSE 76–115; RESP 18–20; TEMP 36.4–36.7; O2SAT 86–98; BMI 21.6
[2025-04-14] MEDS: IPRAT-ALBUT 0.5-2.5 MG/3 ML NEB 1 NEB IH ×2 (05:36→13:37)
[2025-04-14 06:14] LABS: HCO3 VBG 35 mmol/L (21-28); Lactate* 1.8 mmol/L (0.5-1.9); PO2 VBG 38.2 mmHG (25-47); pH VBG 7.351 (7.32-7.43)
[2025-04-14 06:16] LABS: Hematocrit* 36.3 % (37.0-53.0); Hemoglobin* 11.9 gm/dL (13.5-17.5); Mean Corpuscular HGB Conc 33 gm/dL (32-36); Mean Corpuscular Hemoglobin 29 pg (26-34); Mean Corpuscular Volume 89 fL (80-100); Red Blood Count* 4.09 m/uL (4.30-5.90); White Blood Count* 14.95 K/uL (4.50-11.00)
[2025-04-14 06:25] LABS: PCO2 VBG 63 mmHG (40-50)
[2025-04-14 06:38] LABS: Slide Review Reflex No
[2025-04-14 06:50] LABS: Chloride* 97 mmol/L (96-114)
[2025-04-14 06:51] LABS: Potassium* 4.3 mmol/L (3.6-5.1); Sodium* 137 mmol/L (135-149)
[2025-04-14 06:53] LABS: Blood Urea Nitrogen* 19 mg/dL (7-30); Creatinine* 0.8 mg/dL (0.5-1.5); Est. Creatinine Clearance* 106.83; Estimated Glomerular Filt Rate 105 ml/min
[2025-04-14 06:54] LABS: Anion Gap 6 mEq/L (7-15); Calcium* 9.5 mg/dL (8.4-10.6); Carbon Dioxide* 34 mmol/L (20-32); Glucose* 122 mg/dL (60-115)
--- NOTE | 2025-04-14 07:10 | PC.NURSE ---
The patient is noted to take deep respirations, other VS are stable... SOB is severe with any activity, therefor the patient reports he does not do much. Uses the urinal at the bedside. O2 is to be 86-92%... the patient was over oxygenating prior and is retaining CO2 quite extensively. On between 0.5-1L throughout the night, when he was up for his weight his o2 decreased to the 70's. Call light within reach. Malorie APARICIO BSN
[2025-04-14] MEDS: DOXYCYCLINE HYCLATE 100 MG PO ×2 (08:30→21:16)
[2025-04-14] MEDS: BUDESONIDE 0.5 MG/2ML NEB NEB ×2 (08:30→21:18)
[2025-04-14] MEDS: SODIUM CHLORIDE 0.9 % (FLUSH) 10 ML SYRINGE 5 ML IVF ×2 (08:32→21:18)
[2025-04-14] MEDS: cefTRIAXone 1 GM in 0.9 % SODIUM CHLORIDE Mini-bag 100 ML IVPB (08:32)
[2025-04-14] MEDS: PERFLUTREN LIPID MICROSPHERES 2 ML VIAL IVP (09:20)
[2025-04-14 11:06] LABS: D Dimer Quantitative* 0.39 ug/ml (0.00-0.50)
--- NOTE | 2025-04-14 12:24 | PM.IMPN1 ---
Assessment and Plan Assessment and plan (1) Acute and chronic respiratory failure with hypoxia: Problem comment: Due to severe COPD. Patient is retaining CO2. 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 See scanned [facility] 10/31/23. Not a transplant candidate due to lack of support at home Status: Acute (3) Oxygen dependent: Problem comment: - utilizes 4 L of oxygen per minute via nasal cannula continuously at home. Due to CO2 retention should be limited to 1 L at rest but allow up to 4 liters/minute with activity - recommend he focus on trying to keep his oxygen saturations 86-90 %. Status: Acute Plan Continue in hospital for ongoing evaluation and treatment of his respiratory failure. Total Time Spent Total Time Spent: Total time spent today is 60 minutes in reviewing outside records, coordination of care, discussion with patient and other providers ongoing management of end-stage COPD with hypoxia and hypercarbia ache respiratory failure Subjective Date Seen: 04/14/25 Interval history: Carl Prasad is a 55 year old man with known end-stage COPD presents with to 3 day history of increasing dyspnea and left-sided chest discomfort with coughing. Has chronic cough intermittently productive of clear sputum orders clear sputum with brown specks. Ordinarily able to stand for only a few minutes or ambulate for about 100 ft before he has significant dyspnea. His disabling dyspnea is such that he is no longer able to cook for himself, except for microwavable meals. Has been assessed by scientific laboratory supervisor at the [facility], [place], [place], and told that the only option they have left to offer him is a lung transplant. Patient indicates he is not able to obtain a lung transplant because of the requirements that they have for him to have a attendant with him 24 hours a day for 6 months posttransplant. He has no such person in his life that could help him as such including his family or his family's family. Has chronic sneezing with paroxysms of 5-8 sneezes at a time. Does not have pets in the home. Had been in his usual state of health up until 2-3 days ago, this past Monday, when started having more dyspnea even at rest. Denies paroxysmal nocturnal dyspnea or orthopnea. Denies lower extremity edema. Has noted left-sided chest discomfort when coughing or breathing to deeply. No hemoptysis. Has been indoors in an air conditioned setting. Denies fevers, rigors, diaphoresis. No recent travel or trauma. His disabling dyspnea such that he can hardly move whatsoever over the last 2-3 days to even care for himself. Sitting in his recliner chair most day and night. Taking his Trelegy inhaler once daily. Utilizing his albuterol rescue inhaler more frequently over the last few days than usual, up to 5 times daily. Utilizing his oxygen at 4 liters/minute via nasal cannula continuously to satisfy his air hunger. Has had decreased appetite. Denies abdominal pain, constipation, diarrhea, dysuria, urgency, frequency, hematuria. No skin infections. 04/14/2025: Patient notes that he continues to have some left-sided pleuritic chest discomfort. It hurts to cough or take a deep breath. He thinks his breathing is about baseline. Here we have assessed that his oxygen needs are 1 L when he is at rest and his O2 sats are in the mid 90s. With activity he desaturates into the low 80s even on 4 L per nasal cannula. He tells me at home that he will sometimes increase his portable oxygen to 6 L when he is walking out to his truck. He desaturates into the 80s at home as well. Exam Narrative: Exam Narrative: He is alert and appears in no distress at rest. Breathing oxygen at 1 L per nasal cannula. Appears barrel-chested. Respirations with marked decreased breath sounds in all lung pulido. He has marked prolongation of expiratory phase and diffuse prolonged wheezes heard throughout his lung pulido. Cardiovascular: S1, S2, regular rate and rhythm. Abdomen: Bowel sounds active. Abdomen is soft without tenderness or mass. Extremities without edema. Intact peripheral pulses. Extremities warm to touch. Const: Vital Signs, click to edit/add: Vital Signs - 24 hr 04/13/25 12:48 04/13/25 13:00 04/13/25 13:09 Temperature Pulse Rate 85 83 83 Pulse Rate [Right Pulse Oximeter] Respiratory Rate 17 Blood Pressure 128/91 H Blood Pressure [Ri ght Arm] Pulse Oximetry 100 100 100 Oxygen Delivery Me thod Oxygen Flow Rate 04/13/25 13:15 04/13/25 14:34 04/13/25 14:34 Temperature Pulse Rate 84 Pulse Rate [Right Pulse Oximeter] 84 Respiratory Rate 12 Blood Pressure Blood Pressure [Ri ght Arm] 146/93 H Pulse Oximetry 100 86 L 86 L Oxygen Delivery Me thod Nasal Cannula Nasal Cannula Oxygen Flow Rate 2 2 04/13/25 19:00 04/13/25 20:39 04/13/25 23:00 Temperature 98.5 F 98.5 F Pulse Rate 104 H Pulse Rate [Right Pulse Oximeter] 110 H 98 Respiratory Rate 18 16 Blood Pressure Blood Pressure [Ri ght Arm] 132/71 115/80 Pulse Oximetry 93 90 Oxygen Delivery Me thod Nasal Cannula Nasal Cannula Oxygen Flow Rate 2 2 04/13/25 23:00 04/13/25 23:00 04/14/25 02:05 Temperature Pulse Rate 86 Pulse Rate [Right Pulse Oximeter] Respiratory Rate Blood Pressure Blood Pressure [Ri ght Arm] Pulse Oximetry 93 86 L Oxygen Delivery Me thod Nasal Cannula Room Air Oxygen Flow Rate 1 04/14/25 03:00 04/14/25 07:00 04/14/25 07:00 Temperature 98.0 F Pulse Rate Pulse Rate [Right Pulse Oximeter] 101 H 115 H Respiratory Rate 18 18 18 Blood Pressure Blood Pressure [Ri ght Arm] 125/72 Pulse Oximetry 93 98 Oxygen Delivery Me thod Nasal Cannula Nasal Cannula Oxygen Flow Rate 1 1 04/14/25 07:00 04/14/25 07:00 04/14/25 11:00 Temperature 98.1 F 98.1 F Pulse Rate 95 Pulse Rate [Right Pulse Oximeter] 115 H 109 H Respiratory Rate 18 18 Blood Pressure Blood Pressure [Ri ght Arm] 122/96 H 120/84 Pulse Oximetry 98 95 Oxygen Delivery Me thod Nasal Cannula Nasal Cannula Oxygen Flow Rate 1 1 Labs Labs: Laboratory Results - last 24 hr 04/13/25 04/13/25 04/14/25 11:42 12:06 05:58 WBC 14.95 H RBC 4.09 L Hgb 11.9 L Hct 36.3 L MCV 89 MCH 29 MCHC 33 Plt Count 280 D-Dimer Quant (PE/DVT) 0.39 VBG pH 7.36 7.351 VBG pCO2 71 H* 63 H* VBG pO2 < 30.0 38.2 VBG HCO3 40 H 35 H Sodium 140 137 Potassium 4.7 4.3 Chloride 96 97 Carbon Dioxide 39 H 34 H Anion Gap 5 L 6 L BUN 15 19 Creatinine 0.8 0.8 Estimated Creat Clear 110.45 106.83 Estimated GFR 105 105 Glucose 100 122 H Lactate 1.8 Calcium 9.7 9.5 Phosphorus 2.6 Magnesium 1.6 Total Bilirubin 0.4 Direct Bilirubin 0.0 AST 26 ALT 15 Alkaline Phosphatase 60 Troponin I < 0.01 C-Reactive Protein < 0.5 L < 0.5 L Total Protein 7.2 Albumin 4.4 Procalcitonin 0.05 TSH 0.290 SARS-CoV-2 (PCR) Negative SARS-CoV-2 Influenza Type A (PCR) Negative PCR FLU A Influenza Type B (PCR) Negative PCR FLU B RSV (PCR) Negative PCR RSV Lab Acknowledgement POC Troponin I 0.00 L 04/14/25 10:50 WBC RBC Hgb Hct MCV MCH MCHC Plt Count D-Dimer Quant (PE/DVT) VBG pH VBG pCO2 VBG pO2 VBG HCO3 Sodium Potassium Chloride Carbon Dioxide Anion Gap BUN Creatinine Estimated Creat Clear Estimated GFR Glucose Lactate Calcium Phosphorus Magnesium Total Bilirubin Direct Bilirubin AST ALT Alkaline Phosphatase Troponin I C-Reactive Protein Total Protein Albumin Procalcitonin TSH SARS-CoV-2 (PCR) Influenza Type A (PCR) Influenza Type B (PCR) RSV (PCR) Lab Acknowledgement Test Added POC Troponin I
--- NOTE | 2025-04-14 13:39 | CRLHL7_ITS ---
For Patients: As a result of the Century Cures Act, medical imaging exams and procedure reports are released immediately into your electronic medical record. You may view this report before your referring provider. If you have questions, please contact your health care provider. Indication: worsening work of breathing, severe COPD Technique: AP view of the chest. Comparison: 04/13/2025. Findings: Partial visualization of postsurgical changes from open reduction and internal fixation of the proximal right humerus. Normal cardiomediastinal silhouette. No focal consolidation. Trace blunting of the left greater than right costophrenic angles. No visualized pneumothorax. Hyperinflated lungs. Impression: 1. Hyperinflated lungs, which may represent COPD. 2. Trace blunting of the bilateral costophrenic angles may represent pleural effusions versus scarring. Dictated by Chapincito Duong MD @ 04/14/2025 2:20:14 PM (Electronically Signed)
[2025-04-14] MEDS: METHYLPREDNISOLONE SOD SUCC 62.5 MG/ML (125) 125 MG IVP (13:48)
[2025-04-14 13:53] LABS: ABG PCO2 56 mmHG (35-45); HCO3 ABG 36 mmol/L (21-28); Oxygen Saturation ABG 95 % (92-100); PO2 ABG 68.4 mmHG (80-105); TCO2 ABG 32 mmol/l (21-30)
[2025-04-14] MEDS: MAGNESIUM IV 2 GM/50 ML PIGGYBACK IVPB (14:05)
--- NOTE | 2025-04-14 14:28 | RESP.RT ---
Called by nursing to see pt. Having increased WOB, and he is concerned. Saturations looked OK at 99% on @L BBS with minimal air movement. Pt unable to tolerate a neb treatment. notified CXR 12 lead ABG all done stat. PT moved to CCU diagnostics looked reassuring. Place Pt on HFNC at 35 L 35% and 34degrees. After 10 minutes pt stated it was easier to breathe. Continuing to assess/monitor. If pt would need to move to BIPAP, caution needs to observed for this pt with complicated pulmonary history and having blebs. Would have to weigh BIPAP vs intubation and ventilation.
--- NOTE | 2025-04-14 14:30 | REH.OT ---
OT: Order received, Patient in midst of transfer to unit status, xray, EKG and with RN and RT. Will recheck status.
[2025-04-14] MEDS: CYCLOBENZAPRINE HCL 10 MG TABLET 5 MG PO ×2 (15:00→21:16)
--- NOTE | 2025-04-14 15:00 | W.PM.CROSSCO ---
Subjective Subjective Date Seen: 04/14/25 Principal diagnosis: Severe COPD Interval history: Call to Romulo's room for concerns regarding increased work of breathing. When I entered the room, Romulo looked nervous, wide eyed. His vital signs were completely stable. My initial exam shows tachypnea with the mild respiratory distress, accessory muscle use. His lungs were tight and there was minimal airflow. Cardiac exam was normal. Pulses were palpable and strong in the distal extremities. Stat chest x-ray - did not reveal an acute pneumothorax Stat ABG shows stable chronic disease. PH was normal. PCO2 was acceptable. EKG-did not show any acute ischemia or arrhythmia I ordered 2 g of magnesium, 1 dose of IV Solu-Medrol at 125 mg and transfer to CCU. Sol Heath, RT, and I chose to place him on high-flow to avoid pressure injury from BiPAP. I did address his code status. He confirms that he would like to be intubated if necessary. Patient is now in CCU for. He is more comfortable. We will continue to monitor closely.
--- NOTE | 2025-04-14 15:33 | REH.PT ---
PT Eval & Treat orders received. Pt moved to CCU and placed on HiFlow O2 this afternoon. Will attempt eval tomorrow when appropriate.
--- NOTE | 2025-04-14 18:49 | PC.NURSE ---
Patient alert and oriented x4. Tolerating a reg. diet. Afebrile this shift. sating 95% on Hiflow and tolerating well. Patient uses urinal at bedside indep. Can ambulate ind to BR with 4 L NC. IV in L AC and R hand SL. NSR on Tele
[2025-04-14] MEDS: ENOXAPARIN 40 MG/0.4 ML INJ SUBCUT (21:17)
[2025-04-15] VITALS (16 sets, daily range): BP systolic 90–108; BP diastolic 64–91; PULSE 71–100; RESP 16–20; TEMP 35.9–36.8; O2SAT 93–100
--- NOTE | 2025-04-15 03:46 | PC.NURSE ---
Contacted Dr. Tanja CORNELL to notify that pt was woken for vitals; pt is asymptomatic with B/P/s 90's/60's, HR in 80's. No new orders at this time and to update ANETA if pt becomes symptomatic.
--- NOTE | 2025-04-15 06:17 | PC.NURSE ---
Report given by off-going RN that per RT keep pt on current HiFlo settings. HiFlo Setting of 35L, 35% @34 degrees maintained O2sats low to mid 90's as seen by RT during day shift. Pt states 3-4L O2 use at home chronically. Pt states he is feeling relief compared to prior days. No labs ordered. Contacted ANETA, waiting to hear back.
[2025-04-15 07:01] LABS: Hematocrit* 36.2 % (37.0-53.0); Hemoglobin* 11.7 gm/dL (13.5-17.5); Immature Granulocytes Pct Auto 0.6 %; Mean Corpuscular HGB Conc 32 gm/dL (32-36); Mean Corpuscular Hemoglobin 29 pg (26-34); Mean Corpuscular Volume 90 fL (80-100); RDW Coefficient of Variation % 12.3 % (11.5-15.5); Red Blood Count* 4.04 m/uL (4.30-5.90); White Blood Count* 21.64 K/uL (4.50-11.00)
[2025-04-15] MEDS: IPRAT-ALBUT 0.5-2.5 MG/3 ML NEB 1 NEB IH (07:12)
[2025-04-15 07:13] LABS: Immature Granulocytes Abs Auto 0.10 K/uL (0.00-0.30); Lymphocytes Absolute Auto 1.60 K/uL (0.90-2.90); Slide Review Reflex No
[2025-04-15 07:19] LABS: Lactate* 0.7 mmol/L (0.5-1.9)
[2025-04-15 07:26] LABS: Albumin* 3.9 g/dL (3.3-5.0); Chloride* 99 mmol/L (96-114); Sodium* 139 mmol/L (135-149)
[2025-04-15 07:27] LABS: Potassium* 4.4 mmol/L (3.6-5.1)
[2025-04-15 07:29] LABS: Alanine Aminotransferase* 14 U/L (4-50); Anion Gap 3 mEq/L (7-15); Aspartate Amino Transferase* 22 U/L (12-35); Bilirubin Total* 0.3 mg/dL (0.1-1.5); Blood Urea Nitrogen* 20 mg/dL (7-30); Carbon Dioxide* 37 mmol/L (20-32); Creatinine* 0.8 mg/dL (0.5-1.5); Est. Creatinine Clearance* 106.51; Estimated Glomerular Filt Rate 105 ml/min
[2025-04-15 07:30] LABS: Alkaline Phosphatase* 53 U/L (40-150); Calcium* 9.1 mg/dL (8.4-10.6); Glucose* 104 mg/dL (60-115); Total Protein* 6.2 g/dL (6.0-8.3)
[2025-04-15 08:26] LABS: pH VBG 7.364 (7.32-7.43)
[2025-04-15 08:27] LABS: HCO3 VBG 36 mmol/L (21-28); PCO2 VBG 63 mmHG (40-50); PO2 VBG 36.0 mmHG (25-47)
[2025-04-15] MEDS: BUDESONIDE 0.5 MG/2ML NEB NEB ×2 (08:50→20:51)
[2025-04-15] MEDS: cefTRIAXone 1 GM in 0.9 % SODIUM CHLORIDE Mini-bag 100 ML IVPB (08:51)
[2025-04-15] MEDS: DOXYCYCLINE HYCLATE 100 MG PO ×2 (08:51→20:50)
[2025-04-15] MEDS: SODIUM CHLORIDE 0.9 % (FLUSH) 10 ML SYRINGE 5 ML IVF ×2 (08:51→20:51)
[2025-04-15] MEDS: MORPHINE 10 MG/0.5 ML ORAL SOLN 5 MG PO ×5 (10:14→22:20)
--- NOTE | 2025-04-15 14:11 | REH.PT ---
PT orders d/c after discussion with MD Nye. Pt not in need of skilled PT services at this time. Will reassess if pt's needs change.
--- NOTE | 2025-04-15 15:38 | PC.NURSE ---
End of Shift Note: Patient was able to ambulate x1 to the BR. Did get very SOB after this activity. Update Dr. Parker and received orders for morphine. Did give him a dose and was able to recover and tolerated his high flow. He was then shortly after lunch was requesting to be switch to the nasal cannula to help him tolerate the change we did another dose of morphine. He has now been sleeping with 1 L oxygen per nasal cannula and tolerating this and has been sats in low 90-92% during his sleep. Has given report to Dana APARICIO.
--- NOTE | 2025-04-15 16:13 | PM.IMPN1 ---
Assessment and Plan Assessment and plan (1) Acute and chronic respiratory failure with hypoxia: Problem comment: Due to severe COPD. Now on high-flow oxygen which is working well for him. Attempting to wean off. Patient is retaining CO2. 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 See scanned [facility] 10/31/23. Not a transplant candidate due to lack of support at home Status: Acute (3) Oxygen dependent: Problem comment: - utilizes 4 L of oxygen per minute via nasal cannula continuously at home. Due to CO2 retention should be limited to 1 L at rest but allow up to 4 liters/minute with activity - recommend he focus on trying to keep his oxygen saturations 86-90 %. Status: Acute (4) Palliative care encounter: Problem comment: I reviewed with patient and his family, sister and mother, current health status. They all have been informed in the past and have reviewed his very severe end-stage lung disease. Appear to be no additional disease modifying treatments available at this point. We discussed palliative care with use of morphine for dyspnea as well as possibility in the future of hospice care at home. Status: Acute Plan Continue in hospital for management of respiratory failure. Total time spent today is 55 minutes in coordination of care, discussion with other providers and discussion with patient and family about palliative care and end of life care for end-stage COPD Subjective Date Seen: 04/15/25 Interval history: Carl Prasad is a 55 year old man with known end-stage COPD presents with to 3 day history of increasing dyspnea and left-sided chest discomfort with coughing. Has chronic cough intermittently productive of clear sputum orders clear sputum with brown specks. Ordinarily able to stand for only a few minutes or ambulate for about 100 ft before he has significant dyspnea. His disabling dyspnea is such that he is no longer able to cook for himself, except for microwavable meals. Has been assessed by air sealing technician at the [facility], [place], [place], and told that the only option they have left to offer him is a lung transplant. Patient indicates he is not able to obtain a lung transplant because of the requirements that they have for him to have a attendant with him 24 hours a day for 6 months posttransplant. He has no such person in his life that could help him as such including his family or his family's family. Has chronic sneezing with paroxysms of 5-8 sneezes at a time. Does not have pets in the home. Had been in his usual state of health up until 2-3 days ago, this past Monday, when started having more dyspnea even at rest. Denies paroxysmal nocturnal dyspnea or orthopnea. Denies lower extremity edema. Has noted left-sided chest discomfort when coughing or breathing to deeply. No hemoptysis. Has been indoors in an air conditioned setting. Denies fevers, rigors, diaphoresis. No recent travel or trauma. His disabling dyspnea such that he can hardly move whatsoever over the last 2-3 days to even care for himself. Sitting in his recliner chair most day and night. Taking his Trelegy inhaler once daily. Utilizing his albuterol rescue inhaler more frequently over the last few days than usual, up to 5 times daily. Utilizing his oxygen at 4 liters/minute via nasal cannula continuously to satisfy his air hunger. Has had decreased appetite. Denies abdominal pain, constipation, diarrhea, dysuria, urgency, frequency, hematuria. No skin infections. 04/14/2025: Patient notes that he continues to have some left-sided pleuritic chest discomfort. It hurts to cough or take a deep breath. He thinks his breathing is about baseline. Here we have assessed that his oxygen needs are 1 L when he is at rest and his O2 sats are in the mid 90s. With activity he desaturates into the low 80s even on 4 L per nasal cannula. He tells me at home that he will sometimes increase his portable oxygen to 6 L when he is walking out to his truck. He desaturates into the 80s at home as well. 04/15/2025: Patient developed respiratory distress yesterday afternoon. The precise cause of this is unclear. He was placed on high-flow oxygen which helps considerably with his symptoms. He is feeling modestly better today. No fever. No new sputum production. No new chest pain. Exam Narrative: Exam Narrative: He is alert and breathing comfortably on high-flow oxygen. As the high-flow oxygen is being weaned he has increased work of breathing and subjective dyspnea. He is oriented to his circumstances. Respirations arm notable for minimally audible breath sounds in all lung pulido. He has marked prolongation of expiration. Very distant wheezing is noted. Cardiovascular: S1, S2, regular rate and rhythm. Abdomen is soft without tenderness. Extremities without edema. Good peripheral perfusion. Const: Vital Signs, click to edit/add: Vital Signs - 24 hr 04/14/25 16:32 04/14/25 18:00 04/14/25 21:15 Temperature 97.8 F Pulse Rate Pulse Rate [Right Pulse Oximeter] 93 Respiratory Rate 20 Blood Pressure [Ri ght Arm] 125/82 Pulse Oximetry 94 Oxygen Delivery Me thod High Flow Nasal Ca nnula Oxygen Flow Rate 35 Fraction of Inspir ed Oxygen 2 2 04/14/25 21:15 04/14/25 23:00 04/14/25 23:00 Temperature Pulse Rate 76 Pulse Rate [Right Pulse Oximeter] Respiratory Rate Blood Pressure [Ri ght Arm] Pulse Oximetry Oxygen Delivery Me thod Oxygen Flow Rate Fraction of Inspir ed Oxygen 35 35 04/14/25 23:00 04/14/25 23:00 04/14/25 23:00 Temperature 97.6 F Pulse Rate Pulse Rate [Right Pulse Oximeter] 90 90 Respiratory Rate 20 20 20 Blood Pressure [Ri ght Arm] 104/69 Pulse Oximetry 96 96 Oxygen Delivery Me thod High Flow Nasal Ca nnula High Flow Nasal Ca nnula Oxygen Flow Rate 35 35 Fraction of Inspir ed Oxygen 35 35 04/15/25 01:15 04/15/25 01:15 04/15/25 03:00 Temperature 98.2 F Pulse Rate 86 Pulse Rate [Right Pulse Oximeter] 84 Respiratory Rate 18 Blood Pressure [Ri ght Arm] 90/64 Pulse Oximetry 96 Oxygen Delivery Me thod High Flow Nasal Ca nnula Oxygen Flow Rate 35 Fraction of Inspir ed Oxygen 35 35 04/15/25 03:00 04/15/25 03:33 04/15/25 05:39 Temperature 97.8 F Pulse Rate Pulse Rate [Right Pulse Oximeter] 86 Respiratory Rate 18 Blood Pressure [Ri ght Arm] 91/69 Pulse Oximetry 96 Oxygen Delivery Me thod High Flow Nasal Ca nnula Oxygen Flow Rate 35 Fraction of Inspir ed Oxygen 35 35 35 04/15/25 05:39 04/15/25 07:00 04/15/25 07:00 Temperature 97.5 F L Pulse Rate Pulse Rate [Right Pulse Oximeter] 84 Respiratory Rate 18 20 Blood Pressure [Ri ght Arm] 101/78 Pulse Oximetry 95 100 Oxygen Delivery Me thod High Flow Nasal Ca nnula High Flow Nasal Ca nnula Oxygen Flow Rate 35 35 Fraction of Inspir ed Oxygen 35 35 35 04/15/25 07:00 04/15/25 07:19 04/15/25 07:55 Temperature 97.0 F L Pulse Rate 80 Pulse Rate [Right Pulse Oximeter] 87 Respiratory Rate 20 Blood Pressure [Ri ght Arm] 108/75 Pulse Oximetry 99 Oxygen Delivery Me thod High Flow Nasal Ca nnula Oxygen Flow Rate 35 Fraction of Inspir ed Oxygen 35 30 04/15/25 09:00 04/15/25 09:32 04/15/25 11:00 Temperature Pulse Rate 88 Pulse Rate [Right Pulse Oximeter] Respiratory Rate Blood Pressure [Ri t Arm] Pulse Oximetry Oxygen Delivery Me thod Oxygen Flow Rate Fraction of Inspir ed Oxygen 30 30 04/15/25 11:00 04/15/25 11:00 04/15/25 13:17 Temperature Pulse Rate Pulse Rate [Right Pulse Oximeter] 90 Respiratory Rate 16 Blood Pressure [Ri t Arm] Pulse Oximetry 93 Oxygen Delivery Me thod High Flow Nasal Ca nnula Oxygen Flow Rate 15 15 Fraction of Inspir ed Oxygen 30 30 21 Documenting provider has reviewed patient's vital signs: yes Labs Labs: Laboratory Results - last 24 hr 04/15/25 06:43 WBC 21.64 H RBC 4.04 L Hgb 11.7 L Hct 36.2 L MCV 90 MCH 29 MCHC 32 RDW Coeff of Edin 12.3 Plt Count 287 Neut % (Auto) 83.1 H Lymph % (Auto) 7.6 L [place] % (Auto) 8.5 Eos % (Auto) 0.0 Baso % (Auto) 0.2 Neut # (Auto) 18.00 H Lymph # (Auto) 1.60 [place] # (Auto) 1.80 H Eos # (Auto) 0.00 Baso # (Auto) 0.00 Abs Immat Gran (auto) 0.10 Imm/Tot Granulo (auto) 0.6 VBG pH 7.364 VBG pCO2 63 H* VBG pO2 36.0 VBG HCO3 36 H Sodium 139 Potassium 4.4 Chloride 99 Carbon Dioxide 37 H Anion Gap 3 L BUN 20 Creatinine 0.8 Estimated Creat Clear 106.51 Estimated GFR 105 Glucose 104 Lactate 0.7 Calcium 9.1 Total Bilirubin 0.3 AST 22 ALT 14 Alkaline Phosphatase 53 Total Protein 6.2 Albumin 3.9
--- NOTE | 2025-04-15 19:28 | PC.NURSE ---
End of shift [id number] ? RN took over pt care at approximately 1500. Pt alert, oriented, and cooperative. Not up during shift, tolerating O2 via nasal cannula to maintain oxygen saturations. Denied pain, reported SOB after eating. Given medication per MAR to improve comfort and WOB. Appears to be resting at the end of shift with call light within reach. ?
[2025-04-15] MEDS: CYCLOBENZAPRINE HCL 10 MG TABLET 5 MG PO (19:54)
[2025-04-15] MEDS: ENOXAPARIN 40 MG/0.4 ML INJ SUBCUT (20:50)
[2025-04-16 03:00] VITALS: BP 107/71; PULSE 74; RESP 16; TEMP 36.1; O2SAT 95
[2025-04-16 06:55] LABS: HCO3 VBG 37 mmol/L (21-28); PO2 VBG 40.8 mmHG (25-47); pH VBG 7.384 (7.32-7.43)
[2025-04-16 07:00] VITALS: BP 103/80; PULSE 105; PULSE 114; RESP 22; TEMP 36.1; O2SAT 90; O2SAT 92
[2025-04-16 07:06] LABS: PCO2 VBG 62 mmHG (40-50)
[2025-04-16] MEDS: BUDESONIDE 0.5 MG/2ML NEB NEB ×2 (08:48→20:39)
[2025-04-16] MEDS: cefTRIAXone 1 GM in 0.9 % SODIUM CHLORIDE Mini-bag 100 ML IVPB (08:48)
[2025-04-16] MEDS: DOXYCYCLINE HYCLATE 100 MG PO ×2 (08:48→20:39)
[2025-04-16] MEDS: SODIUM CHLORIDE 0.9 % (FLUSH) 10 ML SYRINGE 5 ML IVF ×2 (08:49→20:40)
[2025-04-16] MEDS: MORPHINE 10 MG/0.5 ML ORAL SOLN 5 MG PO (09:26)
--- NOTE | 2025-04-16 12:31 | PM.IMPN1 ---
Assessment and Plan Assessment and plan (1) Acute and chronic respiratory failure with hypoxia: Problem comment: Due to severe COPD. Now on high-flow oxygen which is working well for him. Attempting to wean off. Patient is retaining CO2. Oxygen therapy currently at 1 L per nasal cannula at rest and 4 L with activity. Consider OxyMask with activity. 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 See scanned [facility] 10/31/23. Not a transplant candidate due to lack of support at home Status: Acute (3) Oxygen dependent: Problem comment: - utilizes 4 L of oxygen per minute via nasal cannula continuously at home. Due to CO2 retention should be limited to 1 L at rest but allow up to 4 liters/minute with activity - recommend he focus on trying to keep his oxygen saturations 86-90 %. Status: Acute (4) Palliative care encounter: Problem comment: I reviewed with patient and his family, sister and mother, current health status. They all have been informed in the past and have reviewed his very severe end-stage lung disease. Appear to be no additional disease modifying treatments available at this point. We discussed palliative care with use of morphine for dyspnea as well as possibility in the future of hospice care at home. He is finding morphine to be modestly beneficial. Status: Acute Plan Continue in-hospital with oxygen monitoring and support, systemic steroids and inhaled bronchodilators and antibiotics. Continue with palliative care interventions. Total Time Spent Total Time Spent: Total time spent is 45 minutes in discussing with patient and other providers ongoing management of respiratory failure and palliative care. Subjective Date Seen: 04/16/25 Interval history: Carl Prasad is a 55 year old man with known end-stage COPD presents with to 3 day history of increasing dyspnea and left-sided chest discomfort with coughing. Has chronic cough intermittently productive of clear sputum orders clear sputum with brown specks. Ordinarily able to stand for only a few minutes or ambulate for about 100 ft before he has significant dyspnea. His disabling dyspnea is such that he is no longer able to cook for himself, except for microwavable meals. Has been assessed by shipping and receiving material handler at the [facility], [place], [place], and told that the only option they have left to offer him is a lung transplant. Patient indicates he is not able to obtain a lung transplant because of the requirements that they have for him to have a attendant with him 24 hours a day for 6 months posttransplant. He has no such person in his life that could help him as such including his family or his family's family. Has chronic sneezing with paroxysms of 5-8 sneezes at a time. Does not have pets in the home. Had been in his usual state of health up until 2-3 days ago, this past Monday, when started having more dyspnea even at rest. Denies paroxysmal nocturnal dyspnea or orthopnea. Denies lower extremity edema. Has noted left-sided chest discomfort when coughing or breathing to deeply. No hemoptysis. Has been indoors in an air conditioned setting. Denies fevers, rigors, diaphoresis. No recent travel or trauma. His disabling dyspnea such that he can hardly move whatsoever over the last 2-3 days to even care for himself. Sitting in his recliner chair most day and night. Taking his Trelegy inhaler once daily. Utilizing his albuterol rescue inhaler more frequently over the last few days than usual, up to 5 times daily. Utilizing his oxygen at 4 liters/minute via nasal cannula continuously to satisfy his air hunger. Has had decreased appetite. Denies abdominal pain, constipation, diarrhea, dysuria, urgency, frequency, hematuria. No skin infections. 04/14/2025: Patient notes that he continues to have some left-sided pleuritic chest discomfort. It hurts to cough or take a deep breath. He thinks his breathing is about baseline. Here we have assessed that his oxygen needs are 1 L when he is at rest and his O2 sats are in the mid 90s. With activity he desaturates into the low 80s even on 4 L per nasal cannula. He tells me at home that he will sometimes increase his portable oxygen to 6 L when he is walking out to his truck. He desaturates into the 80s at home as well. 04/15/2025: Patient developed respiratory distress yesterday afternoon. The precise cause of this is unclear. He was placed on high-flow oxygen which helps considerably with his symptoms. He is feeling modestly better today. No fever. No new sputum production. No new chest pain. 04/16/2025: Patient reports feeling a little better today. He was able to walk about 50 ft before becoming acutely dyspneic and requiring a wheelchair ride back to his room. He was walking with oxygen at 4 L per nasal cannula. I see him about 5 minutes after this and he is still in moderate respiratory distress with tachypnea. The chest discomfort he had earlier seems to be gone today. He is good appetite has been eating well. No fever. No significant sputum production. Exam Narrative: Exam Narrative: He is alert and appears in [id number] respiratory distress with tachypnea. He has tripod posturing and using accessory muscles to breathe. O2 sats are upper 80s to low 90s. Respirations with a little better air movement and a little better breath sounds today. I can hear air movement a little better compared to yesterday. Cardiovascular: S1, S2, regular rate and rhythm. Abdomen: Bowel sounds active abdomen is soft without tenderness. Extremities without edema. Const: Vital Signs, click to edit/add: Vital Signs - 24 hr 04/15/25 13:17 04/15/25 15:00 04/15/25 17:07 Temperature Pulse Rate 100 Pulse Rate [Left R adial] Pulse Rate [Right Pulse Oximeter] Respiratory Rate 16 Blood Pressure [Ri ght Arm] Pulse Oximetry 94 Oxygen Delivery Me thod Nasal Cannula Oxygen Flow Rate 15 1 Fraction of Inspir ed Oxygen 04/15/25 17:08 04/15/25 19:00 04/15/25 22:48 Temperature 97.4 F L 97.0 F L Pulse Rate Pulse Rate [Left R adial] 90 Pulse Rate [Right Pulse Oximeter] 92 Respiratory Rate 16 16 16 Blood Pressure [Ri ght Arm] 107/91 H 106/91 H Pulse Oximetry 94 94 Oxygen Delivery Me thod Room Air Nasal Cannula Oxygen Flow Rate 1 Fraction of Inspir ed Oxygen 04/15/25 22:48 04/15/25 22:48 04/15/25 23:00 Temperature 96.6 F L Pulse Rate 71 Pulse Rate [Left R adial] Pulse Rate [Right Pulse Oximeter] 99 Respiratory Rate 16 Blood Pressure [Ri ght Arm] 105/81 Pulse Oximetry 93 96 Oxygen Delivery Me thod Nasal Cannula Nasal Cannula Oxygen Flow Rate 1 1 Fraction of Inspir ed Oxygen 04/16/25 03:00 04/16/25 07:00 04/16/25 07:00 Temperature 97.0 F L 97.0 F L Pulse Rate Pulse Rate [Left R adial] Pulse Rate [Right Pulse Oximeter] 74 105 H Respiratory Rate 16 22 Blood Pressure [Ri ght Arm] 107/71 103/80 Pulse Oximetry 95 90 92 Oxygen Delivery Me thod Nasal Cannula Nasal Cannula Nasal Cannula Oxygen Flow Rate 1 1 1 Fraction of Inspir ed Oxygen 04/16/25 07:00 Temperature Pulse Rate 114 H Pulse Rate [Left R adial] Pulse Rate [Right Pulse Oximeter] Respiratory Rate Blood Pressure [Ri ght Arm] Pulse Oximetry Oxygen Delivery Me thod Oxygen Flow Rate Fraction of Inspir ed Oxygen Documenting provider has reviewed patient's vital signs: yes Labs Labs: Laboratory Results - last 24 hr 04/16/25 06:45 VBG pH 7.384 VBG pCO2 62 H* VBG pO2 40.8 VBG HCO3 37 H
[2025-04-16] MEDS: MORPHINE 10 MG/0.5 ML ORAL SOLN PO ×3 (12:56→18:44)
--- NOTE | 2025-04-16 14:29 | RESP.RT ---
Pt seen today. BBS may be slightly improved with aeration. PT feels that nebs are of no benefit to him. Pt may use up to 8L of oxyegen for activity. Try to keep HS and rest oxygen flow rate at 1-3 L. Pt family bringing in Trelegy from home.
--- NOTE | 2025-04-16 14:44 | PC.SOCIAL ---
Addendum entered by PARISH Turner 04/17/25 11:34: Late entry: paint factory worker checked in with pt at 4:20 to follow up with pt ans sister on HCD and POA for finances. Pt states sister is running late and he does not know when she is arriving. Pt plans to discuss forms and information provided with sister when she arrives and social worker psychiatric will follow up on with pt. Original Note: Discharge planning: SW met with patient to discuss discharge plan when patient is medically ready. Patient states ideally he would like to return home, but is unsure if this will work as it has been getting harder for him there and if he doesn't improve he doesn't know that he can do it. SW inquired about what other options he feel could work. Patient reports that he may need to go to a alf as his mom's house has many stairs and his sister's house is full. SW discussed care in the home and patient states that he doesn't have the finances for this. SW discussed completing an [facility] application as an option for in home care services or for alf services. SW explained that this would help with the cost and whether patient would need to go there from here vs in a few months it would be good to consider completing. SW discussed HCD and POA and provided information for completing both. Patient states that he did this before at a different hospital but never had it notarized so plans to complete this today with his sister. SW discussed hospice with patient and provided information about what hospice is and a list of agencies. SW and patient explored how patient is coping with all that he is hearing during this admission. Patient reports that he knew that this would happen, but also wasn't expecting it. Patient states that he is still trying to process everything and is in shock. SW provided brief counseling, validation, and empathy. Patient states that his sister will be coming around 400 and would like this discussed with her too. SW explained that EDSON Szymanski will meet with her at that time.
--- NOTE | 2025-04-16 14:46 | PC.NURSE ---
End of Shift Note: Patient has been up and ambulated twice today. The first time we tried with 4 L nc and it did not go well. He became very SOB and he began to shake and we needed to get a wheel chair and wheel him back to his room. He did ambulate out as far as room 249. The second time we used a oxymizer mask and put him on 6 L nc. This time he was able to ambulate to room 247 turn and ambulated back to his room took about 5 minutes or more for him to recover did complain for the neck pain like he had on his first walk. He did receive some morphine to help with his recovery. Was able to place him back on nasal canula at 1 L when he is resting in bed. will continue to monitor until next shift arrives.
[2025-04-16 15:00] VITALS: BP 109/82; PULSE 92; RESP 20; O2SAT 93
[2025-04-16] MEDS: CYCLOBENZAPRINE HCL 10 MG TABLET 5 MG PO (18:44)
[2025-04-16] MEDS: IPRAT-ALBUT 0.5-2.5 MG/3 ML NEB 1 NEB IH (18:44)
[2025-04-16 19:00] VITALS: BP 136/88; PULSE 100; RESP 14; TEMP 36.3; O2SAT 90
--- NOTE | 2025-04-16 19:23 | PC.NURSE ---
Nursing Care Hours: [id number] Pt this shift calm and cooperative, alert and oriented. Sore neck treated per eMAR. Went for walk after a duoneb, ambulated longer than last walk per pt. Wheezing and tripod at the edge of bed post walk and pt stated feeling better than this morning still. PO morphine given. VSS.
[2025-04-16] MEDS: ENOXAPARIN 40 MG/0.4 ML INJ SUBCUT (20:39)
[2025-04-16 21:13] VITALS: PULSE 100; RESP 14
[2025-04-16 23:00] VITALS: BP 114/90; PULSE 89; RESP 16; TEMP 36.3; O2SAT 93
[2025-04-17 03:00] VITALS: BP 110/76; PULSE 90; RESP 18; TEMP 36.3; O2SAT 94
[2025-04-17 06:10] LABS: HCO3 VBG 38 mmol/L (21-28); PO2 VBG 30.7 mmHG (25-47); pH VBG 7.366 (7.32-7.43)
[2025-04-17 06:26] LABS: PCO2 VBG 66 mmHG (40-50)
--- NOTE | 2025-04-17 06:40 | PC.NURSE ---
End of shift report [id number]: VSS. Afebrile. Denied pain and SOB. Pt is on 1L O2 overnight via nasal cannula to maintain oxygen saturations. Drill Press Tender offered pt to go on a walk this morning, patient stated he would go later. Pt is resting in bed, call light within reach.?
[2025-04-17 07:00] VITALS: BP 141/92; PULSE 87; RESP 14; TEMP 36.4; O2SAT 92
[2025-04-17] MEDS: BUDESONIDE 0.5 MG/2ML NEB NEB ×2 (08:07→21:16)
[2025-04-17] MEDS: DOXYCYCLINE HYCLATE 100 MG PO ×2 (08:42→21:16)
[2025-04-17] MEDS: MORPHINE 10 MG/0.5 ML ORAL SOLN PO ×4 (09:21→19:43)
[2025-04-17] MEDS: guaiFENesin 600 MG TAB.ER.12H 1200 MG PO ×2 (11:23→21:16)
--- NOTE | 2025-04-17 11:34 | PC.SOCIAL ---
Discharge planning: Met with pt again regarding d/c plan. Pt states he is doing better and plans to go home at discharge to his own home and family will check on him frequently there. He plans to take the information on hospice care that was provided home with him but is not interested in putting this in place at this time. Pt states that if his needs increase and he is not able to live independently, he will likely move into his mother's basement so that he will have assistance available all the time. Pt plans to reach out to the [facility] for assistance regarding the Medical Assistance application as they helped him last time he applied and was denied due to being over income. He plans to reapply for the [employer] Medical Assistance as his income has decreased since the prior application for MA. Pt states he spoke with his sister, Yelitza, last night regarding the [employer] Directive and the POA for finances and they looked at the forms together and believe these have both already been completed. He and his sister plan to look for these completed forms at home when discharged and will take the blank forms with them in case he wants to complete them after discharge. Pt is aware the hospital does not have a copy of the completed forms currently in his chart and how to request the forms are added to his medical chart when located. Pt states he has no additional needs at this time and is aware of how to reach social work if any additional needs are identified.
[2025-04-17] MEDS: IPRAT-ALBUT 0.5-2.5 MG/3 ML NEB 1 NEB IH ×2 (12:04→18:32)
[2025-04-17] MEDS: SODIUM CHLORIDE 0.9 % (FLUSH) 10 ML SYRINGE 5 ML IVF ×2 (12:04→21:17)
[2025-04-17 12:05] VITALS: BP 114/89; PULSE 98; RESP 18; TEMP 36.8; O2SAT 90
--- NOTE | 2025-04-17 13:22 | PM.IMPN1 ---
Assessment and Plan Assessment and plan (1) Acute and chronic respiratory failure with hypoxia: Problem comment: Due to severe COPD. Now on high-flow oxygen which is working well for him. Attempting to wean off. Patient is retaining CO2. Oxygen therapy currently at 1 L per nasal cannula at rest and 4-6 L per face mask with activity. Back on Trelegy inhaler. Add Mucinex. 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 See scanned [place] [facility] 10/31/23. Not a transplant candidate due to lack of support at home Status: Acute (3) Oxygen dependent: Problem comment: - utilizes 4 L of oxygen per minute via nasal cannula continuously at home. Due to CO2 retention should be limited to 1 L at rest but allow the maximum that his equipment will allow with activity. Use OxyMask with activity only Status: Acute (4) Palliative care encounter: Problem comment: I reviewed with patient and his family, sister and mother, current health status. They all have been informed in the past and have reviewed his very severe end-stage lung disease. Appear to be no additional disease modifying treatments available at this point. We discussed palliative care with use of morphine for dyspnea as well as possibility in the future of hospice care at home. He is finding morphine to be modestly beneficial. Status: Acute Plan Continue in-hospital for monitoring and therapy. Anticipate discharge to home tomorrow. Total Time Spent Total Time Spent: Total time spent today is 40 minutes in coordination of care and discussing ongoing evaluation management of end-stage COPD Subjective Date Seen: 04/17/25 Interval history: Carl Prasad is a 55 year old man with known end-stage COPD presents with to 3 day history of increasing dyspnea and left-sided chest discomfort with coughing. Has chronic cough intermittently productive of clear sputum orders clear sputum with brown specks. Ordinarily able to stand for only a few minutes or ambulate for about 100 ft before he has significant dyspnea. His disabling dyspnea is such that he is no longer able to cook for himself, except for microwavable meals. Has been assessed by funeral sales manager at the [facility], [place], [place], and told that the only option they have left to offer him is a lung transplant. Patient indicates he is not able to obtain a lung transplant because of the requirements that they have for him to have a attendant with him 24 hours a day for 6 months posttransplant. He has no such person in his life that could help him as such including his family or his family's family. Has chronic sneezing with paroxysms of 5-8 sneezes at a time. Does not have pets in the home. Had been in his usual state of health up until 2-3 days ago, this past Monday, when started having more dyspnea even at rest. Denies paroxysmal nocturnal dyspnea or orthopnea. Denies lower extremity edema. Has noted left-sided chest discomfort when coughing or breathing to deeply. No hemoptysis. Has been indoors in an air conditioned setting. Denies fevers, rigors, diaphoresis. No recent travel or trauma. His disabling dyspnea such that he can hardly move whatsoever over the last 2-3 days to even care for himself. Sitting in his recliner chair most day and night. Taking his Trelegy inhaler once daily. Utilizing his albuterol rescue inhaler more frequently over the last few days than usual, up to 5 times daily. Utilizing his oxygen at 4 liters/minute via nasal cannula continuously to satisfy his air hunger. Has had decreased appetite. Denies abdominal pain, constipation, diarrhea, dysuria, urgency, frequency, hematuria. No skin infections. 04/14/2025: Patient notes that he continues to have some left-sided pleuritic chest discomfort. It hurts to cough or take a deep breath. He thinks his breathing is about baseline. Here we have assessed that his oxygen needs are 1 L when he is at rest and his O2 sats are in the mid 90s. With activity he desaturates into the low 80s even on 4 L per nasal cannula. He tells me at home that he will sometimes increase his portable oxygen to 6 L when he is walking out to his truck. He desaturates into the 80s at home as well. 04/15/2025: Patient developed respiratory distress yesterday afternoon. The precise cause of this is unclear. He was placed on high-flow oxygen which helps considerably with his symptoms. He is feeling modestly better today. No fever. No new sputum production. No new chest pain. 04/16/2025: Patient reports feeling a little better today. He was able to walk about 50 ft before becoming acutely dyspneic and requiring a wheelchair ride back to his room. He was walking with oxygen at 4 L per nasal cannula. I see him about 5 minutes after this and he is still in moderate respiratory distress with tachypnea. The chest discomfort he had earlier seems to be gone today. He is good appetite has been eating well. No fever. No significant sputum production. 04/16/2025: Patient continues to report some gradual improvement. He is tolerating walking better. He thinks it helps to where the OxyMask with higher oxygen flow when he is up walking. Now weaned back to 1 L per nasal cannula at rest with maintaining O2 sats in the low to mid 90s. Reporting that he has thick sticky mucus. Will try Mucinex. Still hopeful for clinical improvement and not ready to enroll in hospice or pursue palliative care. Exam Narrative: Exam Narrative: He is alert appears in no distress. Respirations with improved breath sounds. Wheezing is a little more audible today. Cardiovascular: S1, S2, regular rate and rhythm. Abdomen: Bowel sounds active. Abdomen is soft without tenderness or mass. Extremities without edema. Const: Vital Signs, click to edit/add: Vital Signs - 24 hr 04/16/25 15:00 04/16/25 15:00 04/16/25 15:00 Temperature Pulse Rate [Right Pulse Oximeter] 92 92 Respiratory Rate 20 20 20 Blood Pressure [Ri t Arm] 109/82 Pulse Oximetry 93 93 Oxygen Delivery Me thod Nasal Cannula Nasal Cannula Oxygen Flow Rate 1 1 Fraction of Inspir ed Oxygen 04/16/25 19:00 04/16/25 21:13 04/16/25 23:00 Temperature 97.4 F L 97.4 F L Pulse Rate [Right Pulse Oximeter] 100 100 89 Respiratory Rate 14 14 16 Blood Pressure [Ri t Arm] 136/88 114/90 H Pulse Oximetry 90 93 Oxygen Delivery Me thod Nasal Cannula Nasal Cannula Oxygen Flow Rate 1 1 Fraction of Inspir ed Oxygen 04/16/25 23:00 04/17/25 03:00 04/17/25 07:00 Temperature 97.3 F L 97.5 F L Pulse Rate [Right Pulse Oximeter] 90 87 Respiratory Rate 16 18 14 Blood Pressure [Ri t Arm] 110/76 141/92 H Pulse Oximetry 93 94 92 Oxygen Delivery Me thod Nasal Cannula Nasal Cannula Nasal Cannula Oxygen Flow Rate 1 1 1 Fraction of Inspir ed Oxygen 04/17/25 07:00 04/17/25 07:00 04/17/25 12:05 Temperature 98.3 F Pulse Rate [Right Pulse Oximeter] 87 98 Respiratory Rate 14 14 18 Blood Pressure [Ri ght Arm] 114/89 Pulse Oximetry 92 90 Oxygen Delivery Me thod Nasal Cannula Nasal Cannula Oxygen Flow Rate 1 1 Fraction of Inspir ed Oxygen 21 Documenting provider has reviewed patient's vital signs: yes Labs Labs: Laboratory Results - last 24 hr 04/17/25 06:00 VBG pH 7.366 VBG pCO2 66 H* VBG pO2 30.7 VBG HCO3 38 H
[2025-04-17 15:00] VITALS: BP 128/99; PULSE 90; PULSE 98; RESP 12; RESP 18; TEMP 36.4; O2SAT 90; O2SAT 91
--- NOTE | 2025-04-17 18:30 | PC.NURSE ---
Addendum entered by Saba Hughes RN 04/17/25 19:32: Correction to previous note: Pt. uses up to 6L *oxy mask* when AMB or up to BR. 1L with NC at rest. Original Note: : Pt. is AOx4. Pt is on 1L NC w/ rest and 6L NC after exertion. Pt. uses BR independently. Walked hallway x3 times. Tolerated well AEB consistent O2 sats w/i parameters. Morphine given prn for air hunger. Pt. consumed one full Boost supplement shake and ate 100% of all meals.
[2025-04-17 19:44] VITALS: BP 114/99; PULSE 90; RESP 24; TEMP 36.3; O2SAT 91
[2025-04-17] MEDS: CYCLOBENZAPRINE HCL 10 MG TABLET 5 MG PO (21:16)
[2025-04-17] MEDS: ENOXAPARIN 40 MG/0.4 ML INJ SUBCUT (21:16)
[2025-04-17 23:00] VITALS: PULSE 98; RESP 18; O2SAT 90
[2025-04-18 00:32] VITALS: BP 105/55; PULSE 82; RESP 20; TEMP 36.4; O2SAT 89
[2025-04-18 03:00] VITALS: BP 121/94; PULSE 96; RESP 16; TEMP 36.9; O2SAT 95
--- NOTE | 2025-04-18 06:22 | PC.NURSE ---
patient rested through the night, vitals signs stable. no pain able to make needs known.
[2025-04-18 06:32] LABS: HCO3 VBG 37 mmol/L (21-28); PO2 VBG 33.2 mmHG (25-47); pH VBG 7.381 (7.32-7.43)
[2025-04-18 06:39] LABS: PCO2 VBG 63 mmHG (40-50)
[2025-04-18] MEDS: IPRAT-ALBUT 0.5-2.5 MG/3 ML NEB 1 NEB IH (06:42)
[2025-04-18 07:00] VITALS: BP 130/98; PULSE 92; RESP 14; RESP 16; TEMP 36; O2SAT 92
[2025-04-18] MEDS: guaiFENesin 600 MG TAB.ER.12H 1200 MG PO (09:22)
[2025-04-18] MEDS: DOXYCYCLINE HYCLATE 100 MG PO (09:22)
--- NOTE | 2025-04-18 09:41 | PC.SOCIAL ---
Discharge planning: Met with pt who is pleased with plan to discharge home today. Provided pt with copy of Important Message from Medicare and discussed right to appeal discharge. Provided pt with written information on home delivered meals and contact information of how to reach hospital social workers if any additional resources are needed. Pt was appreciative of visit and has no questions or need for additional resources at this time.
[2025-04-18] MEDS: BUDESONIDE 0.5 MG/2ML NEB NEB (10:19)
[2025-04-18] MEDS: SODIUM CHLORIDE 0.9 % (FLUSH) 10 ML SYRINGE 5 ML IVF (10:20)
--- NOTE | 2025-04-18 11:00 | PM.DS1 ---
DS: Providers Provider Date Seen: 04/18/25 Date of admission: 04/13/25 17:11 Primary care physician: Rohan Saldaña MD Admitting Clinician: Janice Tao MD Attending Physician on discharge: Marciano Parker MD Date of Discharge: 04/18/25 DS: Diagnosis Discharge Diagnosis (1) Acute and chronic respiratory failure with hypoxia: Status: Chronic Problem details: Due to end-stage COPD. Initially treated with high-flow oxygen by nasal cannula. Then weaned to nasal cannula alone Patient is retaining CO2 so oxygen supplementation at rest must be very conservative. Oxygen therapy currently at 1 L per nasal cannula at rest and 4-6 L per face mask with activity. Back on Trelegy inhaler. Mucinex to loosen secretions. (2) COPD (chronic obstructive pulmonary disease): Status: Acute Problem details: - End-stage COPD on chronic oxygen. See scanned [place] [facility] 10/31/23. Not a transplant candidate due to lack of support at home (3) Oxygen dependent: Status: Acute Problem details: Patient advised to use only 1 L per nasal cannula at rest due to CO2 retention. With activity he gets very dyspneic and very hypoxic so he is allowed up to 6 L administered with face mask with activity. (4) Palliative care encounter: Status: Acute Problem details: I reviewed with patient and his family, sister and mother, current health status. They all have been informed in the past and have reviewed his very severe end-stage lung disease. Appear to be no additional disease modifying treatments available at this point. We discussed palliative care with use of morphine for dyspnea as well as possibility in the future of hospice care at home. He is finding morphine to be modestly beneficial. Will continue morphine outpatient as a palliative care measure. DS: Summary Hospital Course Hospital Course: HPI: Carl Prasad is a 55 year old man with known end-stage COPD presents with to 3 day history of increasing dyspnea and left-sided chest discomfort with coughing. Has chronic cough intermittently productive of clear sputum orders clear sputum with brown specks. Ordinarily able to stand for only a few minutes or ambulate for about 100 ft before he has significant dyspnea. His disabling dyspnea is such that he is no longer able to cook for himself, except for microwavable meals. Has been assessed by kerrick kleaner operator at the [facility], [place], [place], and told that the only option they have left to offer him is a lung transplant. Patient indicates he is not able to obtain a lung transplant because of the requirements that they have for him to have a attendant with him 24 hours a day for 6 months posttransplant. He has no such person in his life that could help him as such including his family or his family's family. Has chronic sneezing with paroxysms of 5-8 sneezes at a time. Does not have pets in the home. Had been in his usual state of health up until 2-3 days prior to admission when he started having more dyspnea even at rest. Denies paroxysmal nocturnal dyspnea or orthopnea. Denies lower extremity edema. Has noted left-sided chest discomfort when coughing or breathing to deeply. No hemoptysis. Has been indoors in an air conditioned setting. Denies fevers, rigors, diaphoresis. No recent travel or trauma. His disabling dyspnea such that he can hardly move whatsoever over the last 2-3 days to even care for himself. Sitting in his recliner chair most day and night. Taking his Trelegy inhaler once daily. Utilizing his albuterol rescue inhaler more frequently over the last few days than usual, up to 5 times daily. Utilizing his oxygen at 4 liters/minute via nasal cannula continuously to satisfy his air hunger. Has had decreased appetite. Denies abdominal pain, constipation, diarrhea, dysuria, urgency, frequency, hematuria. No skin infections. Hospital course: Initially was treated with oxygen by nasal cannula but then had a spell of severe dyspnea and was placed on high-flow oxygen by nasal cannula. Over the next couple days he was able to wean off the high-flow back to nasal cannula oxygen. He was treated with antibiotics as well as prednisone and inhaled bronchodilators. Each day he had gradual improvement in his respiratory status and exercise tolerance. Ongoing assessment of oxygen use and requirement was done. He appears to be able to maintain his O2 sats in the low to mid 90s on 1 L per nasal cannula at rest and he was strongly advised to limit his oxygen supplementation at rest to 1 L due to CO2 retention. With activity he became very dyspneic and hypoxic and his oxygen was increased to 6 L with use of a OxyMask with activity and he tolerated this well. Time Spent with Patient Time attestation: Total time spent providing and/or coordinating discharge services: 45 minutes Exam Narrative: Exam Narrative: He is alert and appears in no distress. Breathing comfortably on room air. Respirations are diminished throughout all lung pulido with prolonged expiratory phase. He also has mild diffuse wheezing. This is improved over the last few days with most notable improvement in his air exchange and decreasing his prolonged expiratory phase. Cardiovascular: S1, S2, regular rate and rhythm. No extremity edema and good peripheral perfusion. Const: Vital Signs, click to edit/add: Vital Signs - 24 hr 04/17/25 12:05 04/17/25 15:00 04/17/25 15:00 Temperature 98.3 F Pulse Rate [Right Pulse Oximeter] 98 98 Respiratory Rate 18 18 Blood Pressure [Ri ght Arm] 114/89 Pulse Oximetry 90 90 Oxygen Delivery Me thod Nasal Cannula Nasal Cannula Oxygen Flow Rate 1 1 04/17/25 15:00 04/17/25 19:44 04/17/25 23:00 Temperature 97.5 F L 97.3 F L Pulse Rate [Right Pulse Oximeter] 90 90 98 Respiratory Rate 12 24 18 Blood Pressure [Ri ght Arm] 128/99 H 114/99 H Pulse Oximetry 91 91 Oxygen Delivery Me thod Nasal Cannula Nasal Cannula Oxygen Flow Rate 1 04/17/25 23:00 04/18/25 00:32 04/18/25 03:00 Temperature 97.6 F 98.4 F Pulse Rate [Right Pulse Oximeter] 82 96 Respiratory Rate 20 16 Blood Pressure [Ri ght Arm] 105/55 L 121/94 H Pulse Oximetry 90 89 95 Oxygen Delivery Me thod Nasal Cannula Nasal Cannula Oxygen Flow Rate 1 1 04/18/25 07:00 04/18/25 07:00 04/18/25 07:00 Temperature 96.8 F L Pulse Rate [Right Pulse Oximeter] 92 92 Respiratory Rate 14 16 Blood Pressure [Ri ght Arm] 130/98 H Pulse Oximetry 92 92 Oxygen Delivery Me thod Nasal Cannula Nasal Cannula Oxygen Flow Rate 1 1 Documenting provider has reviewed patient's vital signs: yes DS: Data Data Completed and Pending Completed studies during hospitalization: Procedures Assistance with Respiratory Ventilation, 24-96 Consecutive Hours, Continuous Positive Airway Pressure (09/02/22) Introduction of Other Gas into Respiratory Tract, Via Natural or Artificial Opening (09/29/23) Introduction of Remdesivir Anti-infective into Peripheral Vein, Percutaneous Approach, [employer] 5 (09/29/23) Labs on day of discharge: Labs from last 24 hours 04/18/25 06:11 VBG pH 7.381 VBG pCO2 63 H* VBG pO2 33.2 VBG HCO3 37 H Preliminary micro results at discharge 04/13/25 12:46 Blood Culture - Preliminary Blood NO GROWTH AFTER 96 HOURS 04/13/25 12:06 Blood Culture - Preliminary Blood NO GROWTH AFTER [address] scan - chest: Radiologist's impression: Indication: Shortness of breath. Technique: CT images of the chest following intravenous contrast as a pulmonary embolism protocol. Comparison: CT chest 09/01/2024. Findings: Severe paraseptal and centrilobular pulmonary emphysema. No focal consolidation, pleural effusion, or pneumothorax. No concerning pulmonary nodules. No pulmonary embolism. Heart size is normal. Small pericardial effusion has decreased in size. No mediastinal or hilar lymphadenopathy. Limited images through the upper abdomen are unremarkable. Beam hardening artifact secondary to internal fixation of the right humerus. Mild thoracic spondylosis. No aggressive osseous lesions. Impression: 1. No pulmonary embolism. No acute abnormality in the chest. 2. Severe pulmonary emphysema. 3. Small pericardial effusion has decreased in size. Discharge Plan Discharge Disposition: Home, Self-Care Date of Admission: 04/13/25 17:11 Attending Provider on Discharge: Han Parker Primary Care Provider: Rohan Saldaña Condition: Improved Anticipated Discharge Date/Time: 04/18/25 10:00 Discharge Medications: New prednisone 20 mg Tablet 20 mg PO DAILYWM Qty: 5 0RF morphine concentrate 10 mg/0.5 mL syringe 10 mg PO QID PRN (Reason: dyspnea) Qty: 50 0RF senna 8.6 mg capsule 8.6 mg PO BID PRN (Reason: constipation) Qty: 60 0RF guaifenesin [Mucinex] 600 mg Tablet Extended Release 12hr 600 mg PO BID Qty: 60 0RF Continued Trelegy Ellipta 100-62.5-25 mcg blister with device 1 inh inhalation DAILY Qty: 60 11RF albuterol sulfate 90 mcg/actuation HFA aerosol inhaler 2 inh inhalation Q4-6H PRN (Reason: shortness of breath or wheezing) Qty: 6.7 12RF alendronate 70 mg tablet 70 mg PO QWEEK Qty: 12 4RF Rx Instructions: Do not lie down for 30 minutes after each dose. (DME) Home Oxygen Misc See Rx Instructions .Route Qty: 1 0RF Rx Instructions: As directed Discharge Orders: Discharge Order (Routine); Ordered 04/18/25 Ordered By: Han Parker Patient Education: Prednisone (By mouth), Morphine, Rapid Release (By mouth) (Roxanol, MS Contin), Senna (By mouth) Activity Level: Activity as Tolerated Discharge Diet: Regular Follow Up Appointments: Rohan Saldaña MD [Primary Care Provider, Family Practice] Referral Note: Follow-up in 1 week for Karen Martinez MD [Staff Physician, Family Practice] - 04/24/25 3:30 pm Referral Note: [facility] for hospital follow-up. Primary was not available. Forms: [employer] Info Instructions
--- NOTE | 2025-04-18 12:26 | PC.NURSE ---
[id number]: Pt. is AOX4. VSS. Afebrile. Pt. up & IND in room and BR. Pt. has portable O2 tank he utilizes. Increased need for O2 w/ activity. Pt. does not report notable pain aside from achy from walking a lot yesterday. Pt. education done on follow-up, COPD, medications. Pt. wheeled out by RN & KEILY; sister p/u pt at ED entrance.
== END 2025-04-18 10:46 | disposition home or self-care (01) | DRG 189 ==
LOC: ED 14:05 → MEDSURG 14:22
PROVIDERS: Family Medicine; Hospitalist; Admitting Provider Internal Medicine; Emergency Provider Family Medicine; PCP Family Medicine; Visit Provider Internal Medicine
DX: J96.21 Acute and chronic respiratory failure with hypoxia (principal); J44.1 Chronic obstructive pulmonary disease with (acute) exacerbation; J96.22 Acute and chronic respiratory failure with hypercapnia; F17.210 Nicotine dependence, cigarettes, uncomplicated; Z99.81 Dependence on supplemental oxygen; Z86.718 Personal history of other venous thrombosis and embolism; Z51.5 Encounter for palliative care
CPT/HCPCS: 36415; 36600; 71045; 71275; 80048; 80053; 80076; 82803; 83605; 83735; 84100; 84145; 84443; 84484; 85025; 85027; 85379; 86140; 87040; 87637; 93005; 93306; 94761; 97165; 99285; A9270; J0696; J1650; J2919; J3475; J7030; J7512; Q9957; Q9967

== ENCOUNTER 2025-05-05 11:00 | Outpatient (CLI) | payer MEDICARE, OTHER, SELFPAY ==
--- NOTE | 2025-05-05 11:30 | CT_ITS ---
Patient: MUMTAZ JUDD Facility:?[facility] Patient ID:?[id number] Site Patient ID:?[id number]. Site :?[id number] Study:?CT-ST Neck 78CC ISOVUE 370-05/05/2025 11:42:49 AM Ordering Physician:Jyoti Cosme Final Report: INDICATION: Sore throat, left-sided neck pain to touch TECHNIQUE: CT soft tissue of the neck was acquired with IV contrast. COMPARISON: None. FINDINGS: Skull base: Imaged intracranial contents are unremarkable. Complete opacification of the right maxillary sinus. Pharynx/Larynx/Trachea: Epiglottis is normal. Airway is patent. Adjacent soft tissues are unremarkable. Salivary glands: Unremarkable. Thyroid gland: Unremarkable. No significant nodules. Lymph nodes: No lymphadenopathy. Vessels: Unremarkable for age. Bones: No acute abnormality. Multilevel degenerative changes in the lower cervical spine. Misc: No inflammation, mass or fluid collection. Lung apices: Severe emphysema with multiple prominent blebs. No pneumothorax. Dependent atelectasis in the left upper lobe. IMPRESSION: Unremarkable soft tissue CT of the neck. Please note that all CT scans at this facility use dose modulation, iterative reconstruction, and/or weight-based dosing when appropriate to reduce radiation dose to as low as reasonably achievable. Dictated by Nellie Palumbo MD @ 05/05/2025 12:11:41 PM (Electronic Signature)
== END 2025-05-05 11:01 | disposition home or self-care (01) ==
LOC: CT 11:01
PROVIDERS: PCP Family Medicine; Visit Provider Internal Medicine
DX: M54.2 Cervicalgia (principal); J02.9 Acute pharyngitis, unspecified
CPT/HCPCS: 70491; Q9967

== ENCOUNTER 2025-05-23 10:04 | Emergency (ER) | payer MEDICARE, OTHER, SELFPAY ==
[2025-05-23] VITALS (12 sets, daily range): BP systolic 126; BP diastolic 81; PULSE 19–106; RESP 14–30; TEMP 36.3; O2SAT 89–97; BMI 21.7
--- OUTSIDE RECORDS SUMMARY | 2025-05-23 10:07 | XMS_ITS | Clinical Summary ---
Author Organization [facility] Address [address] [place] [address] Care Team Providers Care Legal Services Professional Name Role Phone None Reported, Pcp Primary Care Provider Unavail able Source Comments Patient records contain information from all sites at [facility]. For routine questions regarding patient records, call [phone] during business hours, M-F 8:00 AM - 5:00 PM Central Time. Record requests for emergency care only can be directed to [phone] at any time.[facility] Allergies No known active allergies Medications fluticasone-ume [...] Years Used Date Smoking Tobacco: Every Day [facility] Utilities Answer Date Recorded In the past [...] your living situation today? I have a [facility] place to live 10/29/2023 Sex and Gender Information Value Date Recorded Sex Assigned at Male 10/29/2023 12:12 PM HISTOLOGY TEACHER Legal Sex Male 9:32 PM HISTOLOGY TEACHER Gender Identity Male 10/29/2023 12:12 PM HISTOLOGY TEACHER Sexual Orientation Straight 10/29/2023 12 :12 PM HISTOLOGY TEACHER Last Filed Vital Signs Vital Sign Reading Time Taken Comments Blood Pressure 124/82 02/21/2024 1:38 PM CDT Pulse 99 02/21/2024 1:38 PM CDT Temperature 36.3 C (97.4 F) 10/31/2023 1:19 PM HISTOLOGY TEACHER Respiratory Rate - - Oxygen Saturation 96% 10/31/2023 1:19 PM HISTOLOGY TEACHER 3L O2 Inhaled Oxygen Concentration - - [...] (2 of 2 - PCV) 10/11/2023 10/11/2022 Depression Screening (Annual PHQ-2) 09/18/2024 COVID-19 Vaccine (3 - 2024-2 6 season) 2025 12/26/2020, 12/05/2020 Influenza Vaccine (#1) 2025 06/26/2023 Fasting Glucose for Diabetes Screening 10/31/2026 10/31/2023 DTaP,Tdap,and Td Vaccines (2 - Td or Tdap) 06/04/2029 06/04/2019, 07/05/2005 IPV Vaccines Aged Out No longer eligi ble based on patient's age to complete this topic Medical Devices Implanted Type Area Dining Car Server Device Identifier Shelf Expiration Date Model / Serial / Lot Hardware E.G. Pins/Screws/Miguel s Hardware e.g. pins/screws /rods Right: Shoulder Conversions - Default Historical Implant Device Implanted:09/01 (Quantity not on file) Hardware e.g. pins/screws /rods Description:Device Status Te xt - Hardware. In right shoulder. Procedures Procedure Name Priority Date/Time Associated Diagnosis Comments COMPREHENSIVE METABOLIC PANEL, S/P Routine 10/31/2023 10:52 AM HISTOLOGY TEACHER Dyspnea Multifactorial from Last 3 Months or Most Recently Relevant to Health Maintenance Results * (ABNORMAL) Comprehensive Metabolic Panel (10/31/2023 10:52 AM HISTOLOGY TEACHER) Potassium, S 5.5(H) 3.6 - 5.2 mmol/L 10/31/2023 12:12 PM HISTOLOGY TEACHER DTL Sodium, S 144 135 - 145 mmol/L 10/31/2023 12:12 PM HISTOLOGY TEACHER DTL Chloride, S 99 98 - 107 mmol/L 10/31/2023 12:12 PM HISTOLOGY TEACHER DTL Bicarbonate, S 37(H) 22 - 29 mmol/L 10/31/2023 12:12 PM HISTOLOGY TEACHER DTL Anion Gap 8 7 - 15 10/31/2023 12:12 PM HISTOLOGY TEACHER DTL BUN (Blood Urea Nitrogen), S 14 8 - 24 mg/dL 10/31/2023 12:12 PM HISTOLOGY TEACHER DTL Creatinine 0.84 0.74 - 1.35 mg/dL 10/31/2023 12:12 PM HISTOLOGY TEACHER DTL Estimated GFR (eGFR) >90 >=60 mL/min/BS A 10/31/2023 12:12 PM HISTOLOGY TEACHER DTL Comment: Estimated GFR calculated using the 2020 CKD_EPI creatinine equation. Calcium, Total, S 10.1(H) 8.6 - 10.0 mg/dL 10/31/2023 12:12 PM HISTOLOGY TEACHER DTL Glucose, S 93 70 - 140 mg/dL 10/31/2023 12:12 PM HISTOLOGY TEACHER DTL Protein, Total, S 6.9 6.3 - 7.9 g/dL 10/31/2023 12:12 PM HISTOLOGY TEACHER DTL Albumin, S 4.7 3.5 - 5.0 g/dL 10/31/2023 12:12 PM HISTOLOGY TEACHER DTL Aspartate Aminotransferase (AST), S 18 8 - 48 U/L 10/31/2023 12:12 PM HISTOLOGY TEACHER DTL Alkaline Phosphatase, S 90 40 - 129 U/L 10/31/2023 12:12 PM HISTOLOGY TEACHER DTL Alanine Aminotransferase (ALT), S 14 7 - 55 U/L 10/31/2023 12:12 PM HISTOLOGY TEACHER DTL Bilirubin, Total, S 0.3 0.0 - 1.2 mg/dL 10/31/2023 12:12 PM HISTOLOGY TEACHER DTL Blood (Blood, Venous) 10/31/2023 10:52 AM HISTOLOGY TEACHER 10/31/2023 11:37 AM HISTOLOGY TEACHER Bipin Malone M.D. LAB BLOOD ADD-ON Final Res ult [facility] [address] [place] [address], [facility] [address] [place] [address] from Last 3 Months or Most Recently Relevant to Health Maintenance Insurance MEDICARE MEDICA Care Teams Legal Services Professional Relationship Specialty Start Date End Date None Reported, Pcp PCP - General 07/26/24
--- OUTSIDE RECORDS SUMMARY | 2025-05-23 10:07 | XMS_ITS | Clinical Summary ---
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 Gender Identity Not on file Sexual Orientation [...] (2 of 2 - PCV) 10/11/2023 10/11/2022 PHQ-2 (once per calendar year) 2024 COVID-19 VACCINE (3 - 2024-2 6 season) 2025 12/26/2020, 12/05/2020 INFLUENZA VACCINE (#1) 2025 06/26/2023 DTAP/TDAP/TD VACCINE (2 - Td or Tdap) 06/04/2029 06/04/2019, 07/05/2005 HPV VACCINE (No Doses Required) Completed MENINGITIS VACCINE Aged Out No longer eligible based on patient's age to complete this topic Insurance [employer] MEDICARE [employer] MEDICARE Care Teams Salvage Engineer Relationship Specialty Start Date End Date Rohan Saldaña MD PCP - General Family Medicine 01/20/23
--- OUTSIDE RECORDS SUMMARY | 2025-05-23 10:07 | XMS_ITS | Clinical Summary ---
Author Organization [facility] Address [address] [place] [address] Care Team Providers Care Interior Design Assistant Name Role Phone Clinic, No Primary Unavailable [...] HCD 04/14/2024 04/15/2023 COVID-19 Vaccine (3 - 2024-2 6 season) 2025 12/26/2020, 12/05/2020 Influenza Vaccine (#1) 2025 Adult Tetanus Booster 06/04/2029 06/04/2019 , 07/05/2005 RSV Vaccines (1 - 1-dose 75+ series) 2045 Meningococcal B Vaccine Aged Out No l onger eligible based on patient's age to complete this topic Medical Devices Implanted Type Area Housekeeper/Laundry Assistant Device Identifier Shelf Expiration Date Model / Serial / Lot Cath Apd Flexima 8fr 25cm - [id number] Implanted:Qty: 1 on 04/17/2023 by Rohan Quintero MD at [facility] [employer] [id number] 10/14/2023 [id number] / [id number] / [id number] Insurance MEDICARE PART A & B Advance Directives For more information, please contact: [phone] * Full Code (Latest Code Status on [...] How was code status determined? Physician Determ formerly [facility] Care Teams Interior Design Assistant Relationship Specialty Start Date End Date Clinic, No Primary PCP - Primary Care Clinic 04/15/23 Rohan Saldaña MD [address] [place] [address] PCP - General 04/17/23
--- NOTE | 2025-05-23 10:30 | CRLHL7_ITS ---
For Patients: As a result of the Century Cures Act, medical imaging exams and procedure reports are released immediately into your electronic medical record. You may view this report before your referring provider. If you have questions, please contact your health care provider. INDICATION: History of pneumothorax. Possible pulmonary embolism. COMPARISON: 04/13/2025 CT of the chest TECHNIQUE: CT pulmonary angiogram of the chest with intravenous contrast (95 milliliters Isovue 370). Reconstructed images/MIPS were created. FINDINGS: Airways: Small amount of secretions in the trachea. Lungs: Severe emphysematous changes in the lungs including a large bulla at the inferior aspect of the left major fissure. New small amount of scattered consolidation within the left lower lobe of the lung. There are also several new loosely clustered solid nodules in the right upper lobe such as a 5 millimeter subpleural nodule on series 4, image 107. There also several pulmonary micronodules which are unchanged since at least as far back as 09/28/2023. There is a punctate calcified granuloma in the right upper lobe of the lung. Pleura: New trace left pleural effusion. Similar multifocal calcified pleural plaques in the left lung measuring up to 8 millimeters in maximal thickness (4/190). Lymph nodes: Mildly enlarged mediastinal and left hilar lymph nodes have slightly increased in size since 04/13/2025 such as a 14 millimeter subcarinal lymph node which previously measured 12 millimeters on 04/13/2025 (4/109). Heart: Small pericardial effusion has slightly increased in size. Normal heart size. Aorta: No acute findings. Pulmonary artery: Normal caliber of the main pulmonary artery. No pulmonary embolism is detected. Chest wall: Normal. Bones: There are osseous degenerative changes. Partially imaged right proximal humerus orthopedic fixation hardware. Old healed left posterior 9th and 10th rib fractures. Similar chronic mild anterior vertebral body wedging most conspicuous in the midthoracic spine. IMPRESSION: 1. No pulmonary embolism is detected. 2. New small amount of scattered consolidation within the left lower lobe of the lung and several new loosely clustered solid subcentimeter right upper lobe pulmonary nodules. These findings are probably infectious/inflammatory. Recommend short interval follow-up low-dose noncontrast CT of the thorax such as within 6-8 weeks to assess for resolution. 3. New trace left pleural effusion. Small pericardial effusion which has slightly increased in size since 04/13/2025. 4. Mildly enlarged mediastinal and left hilar lymph nodes have slightly increased in size since 04/13/2025, probably reactive to the above findings. Recommend attention on follow-up. 5. Severe emphysematous changes in the lungs. Please note that all CT scans at this facility use dose modulation, iterative reconstruction, and/or weight-based dosing when appropriate to reduce radiation dose to as low as reasonably achievable. Dictated by Geronimo Maldonado MD @ 05/23/2025 11:50:04 AM (Electronically Signed)
--- NOTE | 2025-05-23 10:33 | ED_ITS ---
HPI - General Adult General Chief complaint: Shortness of Breath/Dyspnea Stated complaint: chest pains, difficulty breathing Time Seen by Provider: 05/23/25 10:20 History of Present Illness HPI narrative: 55-year-old male who is oxygen dependent at home for chronic COPD, presents with a couple day history of runny nose increasing shortness of breath, some back discomfort. To me he specifically denies chest pain anteriorly but has felt more weak than normal when walking around. He has had more of a runny nose, no history of significant allergies, history of acute and chronic respiratory failure with hypoxia. His chart was reviewed in detail. He has also had a pneumothorax for which she had a pleurodesis in the past. He did have blebs on his last CT scan. He denies leg swelling edema, denies rigors. Maybe has slightly more cough than normal but not significant. No production. Related Data Previous Rx's ?Medication ?Instructions ?Recorded Home Oxygen #1 ea 09/07/22 albuterol sulfate 90 mcg/actuation 2 inh inhalation Q4 -6H PRN 09/25/23 aerosol inhaler shortness of breath or wheez ing #6.7 grams fluticasone fur. 100 mcg-umeclid 1 inh inhalation MELISSA Y #60 ea 09/25/23 62.5 mcg-vilant 25 mcg inhalat.powder (Trelegy Ellipta) alendronate 70 mg tablet 70 mg PO QWEEK #12 tabs 11/12 morphine concentrate 10 mg/0.5 mL 10 mg (0.5 mL) PO QI D PRN dyspnea 04/18/25 oral syringe (FOR ORAL USE ONLY) #50 ea levofloxacin 500 mg tablet 500 mg PO DAILY 7 days #7 t abs 05/23/25 prednisone 20 mg tablet 20 mg PO BID #10 tabs Allergies Allergy/AdvReac Type Severity Reaction Status Date / Time No Known Drug Allergies Allergy Verified 05/23/25 11:25 Review of Systems Status of ROS: Reports: 6 or more systems reviewed and unremarkable except as noted in History and below [facility] Medical History Former smoker ?Z87.891 - Personal history of nicotine dependence (ICD-10) Palliative care encounter ?Z51.5 - Encounter for palliative care (ICD-10) COPD (chronic obstructive pulmonary disease) ?J44.9 - Chronic obstructive pulmonary disease, unspecified (ICD-10) Adhesive capsulitis of left shoulder ?M75.02 - Adhesive capsulitis of left shoulder (ICD-10) Recurrent deep vein thrombosis (DVT) ?I82.409 - Acute embolism and thrombosis of unspecified deep veins of unspecified lower extremity (ICD-10) COVID (09/28/23) ?U07.1 - COVID-19 (ICD-10) Spontaneous pneumothorax (04/15/23) ?J93.83 - Other pneumothorax (ICD-10) Tubular adenoma (08/05/19) ?D36.9 - Benign neoplasm, unspecified site (ICD-10) Surgical History History of laminectomy (~1993) ?Z98.890 - Other specified postprocedural states (ICD-10) History of open reduction and internal fixation (ORIF) procedure (07/01/11) ?Z98.890 - Other specified postprocedural states (ICD-10) History of lipoma ?Z86.018 - Personal history of other benign neoplasm (ICD-10) H/O lumbar discectomy ?Z98.890 - Other specified postprocedural states (ICD-10) Social History Narrative: He lives alone in [place]. His sister, Yelitza Sheikh, is healthcare power of intranet developer. Code status is full. He occasionally smokes a cigarette, about once a week. He smokes marijuana about once a day. Does not drink alcohol. He is disabled What is your current living situation?: I presently have a place to live Problems where you live: no known problems Problems where you live details: none In the past 12 months, utilities in danger of being shut off: no In past 12 months, lack of transportation kept you from medical appts, meetings, work, or getting things needed for daily living: no In the past 12 mos, have been you worried that your food would run out before you had money to buy more?: never true In the past 12 mos, the food you bought just didn't last and you didn't have money to buy more?: never true Highest level of school completed/degree received: GED or equivalent Smoking Status: Current some day smoker What tobacco products do you use: cigarettes Years smoked: 38 Smoking quit date/years: <= 15 years ago Do you use any of these nicotine containing products: None Second hand tobacco smoke exposure: No How often do you have a drink containing alcohol: never How often do you have six or more drinks on one occasion: Never AUDIT-C Alcohol total score: 0 Non-prescribed substance use: denies use Caffeine: Yes (pop) How often does anyone, including family, friends and others, physically hurt you : never How often does anyone, including family, friends and others, insult or talk down to you: never How often does anyone, including family, friends and others, threaten you with harm: never How often does anyone, including family, friends and others, scream or curse at you: never service: No Exam Narrative: Exam Narrative: Objective: Vital signs shows O2 sat on 2 L nasal cannula 95%, he does have home oxygen. He is afebrile Alert orient x3 Respiratory rate elevated. HEENT is unremarkable neck supple chest diminished air exchange bilaterally no rales or wheezing Heart rhythm regular 2/6 systolic murmur occasional ectopic beat noted Abdomen benign soft Extremities are no edema good peripheral perfusion noted Neurologic is nonfocal upper lower extremities. Const: Vital Signs, click to edit/add: Vital Signs - 24 hr 05/23/25 10:09 05/23/25 10:10 05/23/25 10:20 Temperature 97.4 F L Pulse Rate Pulse Rate [Pulse Oximeter] 19 L Respiratory Rate 30 H Blood Pressure [Ri ght Upper Arm] 126/81 Pulse Oximetry 89 95 93 Oxygen Delivery Me thod Nasal Cannula Nasal Cannula Nasal Cannula Oxygen Flow Rate 1 2 3 05/23/25 10:27 05/23/25 10:28 05/23/25 10:30 Temperature Pulse Rate 103 H Pulse Rate [Pulse Oximeter] Respiratory Rate Blood Pressure [Ri ght Upper Arm] Pulse Oximetry 97 96 95 Oxygen Delivery Me thod Nasal Cannula Oxygen Flow Rate 1 05/23/25 10:30 05/23/25 10:45 05/23/25 11:00 Temperature Pulse Rate 99 103 H 106 H Pulse Rate [Pulse Oximeter] Respiratory Rate 16 20 Blood Pressure [Ri ght Upper Arm] Pulse Oximetry 96 95 95 Oxygen Delivery Me thod Oxygen Flow Rate 05/23/25 11:16 05/23/25 11:30 05/23/25 11:45 Temperature Pulse Rate 105 H 100 98 Pulse Rate [Pulse Oximeter] Respiratory Rate 14 Blood Pressure [Ri ght Upper Arm] Pulse Oximetry 94 95 96 Oxygen Delivery Me thod Oxygen Flow Rate 05/23/25 12:04 Temperature Pulse Rate Pulse Rate [Pulse Oximeter] Respiratory Rate Blood Pressure [Ri ght Upper Arm] Pulse Oximetry 94 Oxygen Delivery Me thod Room Air Oxygen Flow Rate Course Vital Signs Vital signs: Initial Vital Signs Pulse Oximetry 89 05/23/25 10:09 Oxygen Delivery Method Nasal Cannula 05/23/25 10:09 Oxygen Flow Rate 1 05/23/25 10:09 Vital Signs Pulse Oximetry 89 05/23/25 10:09 Oxygen Delivery Method Nasal Cannula 05/23/25 10:09 Oxygen Flow Rate 1 05/23/25 10:09 Temperature 97.4 F L 05/23/25 10:10 Pulse Rate 98 05/23/25 11:45 Respiratory Rate 14 05/23/25 11:45 Blood Pressure 126/81 05/23/25 10:10 Pulse Oximetry 94 05/23/25 12:04 Oxygen Delivery Method Room Air 05/23/25 12:04 Oxygen Flow Rate 1 05/23/25 10:28 Medications Administered Medications: Generic Name Dose Route Start Last Admin Trade Name Freq PRN Reason Stop Dose Admin Levofloxacin 500 mg 05/23/25 12:00 05/23/25 12:03 Levofloxacin 500 Mg Tablet PO 500 mg Q24H ESTEBAN Administration Discontinued Medications Generic Name Dose Route Start Last Admin Trade Name Freq PRN Reason Stop Dose Admin Albuterol/Ipratropium 1 neb 05/23/25 10:29 05/23/25 11:22 Iprat-Albut 0.5-2.5 Mg/3 Ml Neb IH 05/23/25 10:30 1 neb ONCE ONE Administration Methylprednisolone Sodium Succinate 125 mg 05/23/25 10:29 05/23/25 11:22 Methylprednisolone Sod Succ 62.5 Mg/Ml (125) IVP 05/23/25 10:30 125 mg ONCE ONE Administration Medical Decision Making MDM Narrative Medical decision making narrative: 55-year-old male with significant end-stage COPD lung disease with chronic home O2. He has not been on steroids for about 7 weeks. He did pretty well last time he was hospitalized with them and he will get a dose of Solu-Medrol now. He does have some allergic component with some runny nose certainly could exacerbate his chronic lung disease. I think also because of his blebs on prior CT will check a CT with IV contrast to rule out PE rule out pneumonia rule out pneumothorax. Will check electrolytes and labs, check his EKG and troponin to rule out acute coronary syndrome. Disposition pending findings. At this point I think he probably can go home if things look stable. But will monitor his situation and likely he will need a steroid course at home. Addendum with 11:40 a.m.: The patient has a normal sinus rhythm EKG no acute ST T wave changes by my independent read. Reassuringly troponin is 0, EKG is normal, white count slightly elevated 15,000, he has been on steroids within the last few weeks. ER profile largely unremarkable LFTs normal , viral studies negative. If the patient's CT scan comes back reassuring I think will put him on 20 mg as prednisone b.i.d. for the next 5 days. Light activity, continue at oxygen, follow-up with primary care as needed. Addendum 12 noon: The patient has a chest CT that shows no pulmonary embolism there is scattered left lobe consolidation be covered with Levaquin, he has a new trace pleural effusion on the left and a small pericardial effusion. He has got enlarged nodes consistent with infection, severe emphysematous changes. His EKG shows normal sinus rhythm no acute ST T-wave by my independent interpretation. Point of care troponin is 0, white count elevated 15,000 ER profile looks largely unremarkable LFTs unremarkable, his viral studies are negative. Levaquin and prednisone for home, and recheck with primary care doctor in the next couple of days, recommend he continue her med medications at home and your oxygen. Return as needed. Lab Data Labs: Lab Results 05/23/25 05/23/25 Range/Units 10:30 10:50 WBC 15.73 H (4.50-11.00) K/uL RBC 4.82 (4.30-5.90) m/uL Hgb 13.9 (13.5-17.5) gm/dL Hct 42.0 (37.0-53.0) % MCV 87 (80-100) fL MCH 29 (26-34) pg MCHC 33 (32-36) gm/dL RDW Coeff of Edin 11.8 (11.5-15.5) % Plt Count 358 (140-440) K/uL Neut % (Auto) 76.2 H (42.0-72.0) % Lymph % (Auto) 8.0 L (20-44) % [place] % (Auto) 9.2 (0.0-11.0) % Eos % (Auto) 5.6 (0.0-7.0) % Baso % (Auto) 0.4 (0.0-3.0) % Neut # (Auto) 12.00 H (1.7-7.0) K/uL Lymph # (Auto) 1.30 (0.90-2.90) K/uL [place] # (Auto) 1.40 H (0.00-0.90) K/UL Eos # (Auto) 0.90 H (0.00-0.50) K/uL Baso # (Auto) 0.10 (0.00-0.30) K/uL Abs Immat Gran (auto) 0.10 (0.00-0.30) K/uL Imm/Tot Granulo (auto) 0.6 % Sodium 136 (135-149) mmol/L Potassium 4.7 (3.6-5.1) mmol/L Chloride 97 (96-114) mmol/L Carbon Dioxide 35 H (20-32) mmol/L Anion Gap 4 L (7-15) mEq/L BUN 16 (7-30) mg/dL Creatinine 0.9 (0.5-1.5) mg/dL Estimated Creat Clear 95.20 Estimated GFR 101 ml/min Glucose 103 (60-115) mg/dL Calcium 9.2 (8.4-10.6) mg/dL Total Bilirubin 0.6 (0.1-1.5) mg/dL Direct Bilirubin 0.2 (0.0-0.5) mg/dL AST 21 (12-35) U/L ALT 12 (4-50) U/L Alkaline Phosphatase 66 (40-150) U/L NT-Pro-B Natriuret Pep 28 (See Note) pg/mL Total Protein 7.5 (6.0-8.3) g/dL Albumin 4.2 (3.3-5.0) g/dL SARS-CoV-2 (PCR) Negative SARS-CoV-2 (Negative) Influenza Type A (PCR) Negative PCR FLU A (Negative) Influenza Type B (PCR) Negative PCR FLU B (Negative) RSV (PCR) Negative PCR RSV (Negative) POC Troponin I 0.00 L (0.01-0.04) ng/ml Discharge Plan Discharge Clinical Impression: COPD (chronic obstructive pulmonary disease), Oxygen dependent Patient Disposition: Home w/ Parent or Adult Condition: Improved Additional Instructions: Light activity, fluids as tolerated, prednisone 20 mg b.i.d. x5 days, continue home medications. Continue home oxygen. Update your regular doctor in the next 2 days, return to ED as needed. Activity Level: Light activity Discharge Diet: Regular Prescriptions: New prednisone 20 mg tablet 20 mg PO BID Qty: 10 0RF levofloxacin 500 mg tablet 500 mg PO DAILY 7 Days Qty: 7 0RF No Action Trelegy Ellipta 100-62.5-25 mcg blister with device 1 inh inhalation DAILY Qty: 60 11RF albuterol sulfate 90 mcg/actuation HFA aerosol inhaler 2 inh inhalation Q4-6H PRN (Reason: shortness of breath or wheezing) Qty: 6.7 12RF alendronate 70 mg tablet 70 mg PO QWEEK Qty: 12 4RF Rx Instructions: Do not lie down for 30 minutes after each dose. (DME) Home Oxygen Misc See Rx Instructions .Route Qty: 1 0RF Rx Instructions: As directed morphine concentrate 10 mg/0.5 mL syringe 10 mg PO QID PRN (Reason: dyspnea) Qty: 50 0RF Follow Up/Referrals: Rohan Saldaña MD [Primary Care Provider, Family Practice] Stand Alone Forms: [employer] Info Instructions
[2025-05-23 11:05] LABS: Hematocrit 42.0 % (37.0-53.0); Hemoglobin* 13.9 gm/dL (13.5-17.5); Immature Granulocytes Pct Auto 0.6 %; Mean Corpuscular HGB Conc 33 gm/dL (32-36); Mean Corpuscular Hemoglobin 29 pg (26-34); Mean Corpuscular Volume 87 fL (80-100); RDW Coefficient of Variation % 11.8 % (11.5-15.5); Red Blood Count 4.82 m/uL (4.30-5.90); White Blood Count* 15.73 K/uL (4.50-11.00)
[2025-05-23 11:05] LABS: Troponin, Point-of-Care* 0.00 ng/ml (0.01-0.04)
[2025-05-23 11:09] LABS: Immature Granulocytes Abs Auto 0.10 K/uL (0.00-0.30); Lymphocytes Absolute Auto 1.30 K/uL (0.90-2.90); Slide Review Reflex No
[2025-05-23 11:16] LABS: Albumin* 4.2 g/dL (3.3-5.0); Chloride* 97 mmol/L (96-114); Potassium* 4.7 mmol/L (3.6-5.1); Sodium* 136 mmol/L (135-149)
[2025-05-23 11:19] LABS: Alanine Aminotransferase* 12 U/L (4-50); Alkaline Phosphatase* 66 U/L (40-150); Anion Gap 4 mEq/L (7-15); Aspartate Amino Transferase* 21 U/L (12-35); Bilirubin Direct* 0.2 mg/dL (0.0-0.5); Bilirubin Total* 0.6 mg/dL (0.1-1.5); Blood Urea Nitrogen* 16 mg/dL (7-30); Carbon Dioxide* 35 mmol/L (20-32); Creatinine* 0.9 mg/dL (0.5-1.5); Est. Creatinine Clearance* 95.20; Estimated Glomerular Filt Rate 101 ml/min; Total Protein* 7.5 g/dL (6.0-8.3)
[2025-05-23 11:20] LABS: Calcium* 9.2 mg/dL (8.4-10.6); Glucose* 103 mg/dL (60-115)
[2025-05-23] MEDS: IPRAT-ALBUT 0.5-2.5 MG/3 ML NEB 1 NEB IH (11:22)
[2025-05-23] MEDS: METHYLPREDNISOLONE SOD SUCC 62.5 MG/ML (125) 125 MG IVP (11:22)
[2025-05-23 11:38] LABS: PCR FLU A Negative PCR FLU A (Negative); PCR FLU B Negative PCR FLU B (Negative); PCR RSV Negative PCR RSV (Negative); SARS PCR* Negative SARS-CoV-2 (Negative)
[2025-05-23 11:39] LABS: NT Pro B Type NatriureticPept* 28 pg/mL (See Note)
== END 2025-05-23 12:51 | disposition home or self-care (01) ==
PROVIDERS: Emergency Provider Family Medicine; PCP Family Medicine
DX: J44.9 Chronic obstructive pulmonary disease, unspecified (principal); Z99.81 Dependence on supplemental oxygen
CPT/HCPCS: 36415; 71275; 80048; 80076; 83880; 84484; 85025; 87631; 93005; 94761; 96374; 99285; A9270; J2919; Q9967